=== PATIENT | female | born 1965 | race Hispanic/Latino ===

== ENCOUNTER 2018-11-21 11:51 | Emergency (ER) | payer OTHER ==
--- OUTSIDE RECORDS SUMMARY | 2018-11-21 11:53 | XMS REPORT | Summary of Care ---
:1965 Author Organization [facility] [place] Address [address] [place] [address]- Encounter HQ Dez(FIN) [id number] Date(s): 07/26/18 - 07/26/18 [facility] [address], [place] [address]- [phone] Discharge Disposition: Home or Self Care Attending Physician: Dariel Rangel MD Referring Physician: Dariel Rangel MD Vital Signs Most recent to oldest [Reference Range]: 1 Height 157.48 cm (07/26/18 11:21 AM) Blood Pressure [90-140/60-90 mmHg] 156/97 mmHg *HI* (07/26/18 11:21 AM) Respiratory Rate [14-20 BRMIN] 16 BRMIN (07/26/18 11:21 AM) Peripheral Pulse Rate [60-100 bpm] 71 bpm (07/26/18 11:21 AM) Weight 77.727 kg (07/26/18 11:21 AM) Body Mass Index 31.34 m2 (07/26/18 11:21 AM) Problem List Condition Effective Dates Status Health Status Informant Complex partial epilepsy(Confirmed) Active Essential tremor(Confirmed) Active H/O subarachnoid hemorrhage(Confirmed) Active HTN - Hypertension(Confirmed) Active Hypothyroidism(Confirmed) Active Allergies, Adverse Reactions, Alerts Substance Reaction Severity Status Demerol Active Medications amLODIPine 5 mg oral tablet 5 mg=1 tab, PO, Daily, # 90 tab, 0 Refill(s) Start Date: 07/26/18 Status: OrderedbuPROPion 150 mg/24 hours (XL) oral tablet, extended release 150 mg=1 tab, PO, Q24H, # 30 tab, 0 Refill(s) Start Date: 07/26/18 Status: Orderedfamotidine 20 mg oral tablet 20 mg=1 tab, PO, Daily, 0 Refill(s) Start Date: 07/26/18 Status: OrderedLaMICtal XR 100 mg oral tablet, extended release 100 mg=1 tab, PO, Daily, # 30 tab, 0 Refill(s) Start Date: 07/26/18 Status: OrderedlamoTRIgine 200 mg oral tablet 200 mg=1 tab, PO, BID, # 180 tab, 0 Refill(s) Start Date: 07/26/18 Status: OrderedlevETIRAcetam 500 mg oral tablet See Instructions, 1 tab PO QAM, 2 tabs PO QPM, 0 Refill(s) Start Date: 07/26/18 Status: Orderedlevothyroxine 150 mcg (0.15 mg) oral tablet 150 microgram=1 tab, PO, Daily, # 30 tab, 0 Refill(s) Start Date: 07/26/18 Status: OrderedPARoxetine 40 mg oral tablet 40 mg=1 tab, PO, Daily, # 30 tab, 0 Refill(s) Start Date: 07/26/18 Status: Ordered Results No data available for this section Immunizations No data available for this section Procedures Procedure Date Related Diagnosis Body Site Status Aneurysm clipping Completed Social History Social History Type Response Smoking Status Never smoker; Exposure to Tobacco Smoke None; Cigarette Smoking Last 365 Days No; Reg Smoking Cessation Counseling No entered on: 07/26/18 Assessment and Plan No data available for this section
--- OUTSIDE RECORDS SUMMARY | 2018-11-21 11:53 | XMS REPORT | Summary of Care ---
:1965 Author Organization [facility] [place] Address [address] [place] [address]- Encounter HQ Encntr_alijennifer(FIN) [id number] Date(s): 11/15/18 - 11/15/18 [facility] [address], [place] [address]- [phone] Discharge Disposition: Home or Self Care Attending Physician: Dariel Rangel MD Referring Physician: Dariel Rangel MD Vital Signs No data available for this section Problem List Condition Effective Dates Status Health Status Informant Complex partial epilepsy(Confirmed) Active Essential tremor(Confirmed) Active H/O subarachnoid hemorrhage(Confirmed) Active HTN - Hypertension(Confirmed) Active Hypothyroidism(Confirmed) Active Allergies, Adverse Reactions, Alerts Substance Reaction Severity Status Demerol Active Medications No data available for this section Results No data available for this section Immunizations No data available for this section Procedures Procedure Date Related Diagnosis Body Site Status Aneurysm clipping Completed Social History Social History Type Response Smoking Status Never smoker; Exposure to Tobacco Smoke None; Cigarette Smoking Last 365 Days No; Reg Smoking Cessation Counseling No entered on: 11/07/18 Assessment and Plan No data available for this section
--- OUTSIDE RECORDS SUMMARY | 2018-11-21 11:53 | XMS REPORT | Continuity of Care Document ---
:1965 Author Organization [employer] Care Team Providers Name Role Phone [employer] Unavailable Unavailable Problems Problem Status Onset Classification Date Comments Source Date Reported Complex partial Active Problem 11/18/2018 [facility] epileptic seizure Neuro (disorder) Essential tremor Active Problem 11/18/2018 [facility] (disorder) [facility] History of - Active Problem 11/18/2018 [facility] subarachnoid Neuro hemorrhage (context-dependent category) Hypertensive Active Problem 11/18/2018 [facility] disorder, systemic Neuro arterial (disorder) Hypothyroidism Active Problem 11/18/2018 [facility] (disorder) [facility] Medications Medication Details Route Status Patient Ordering Order Source Instructions Provider Date PARoxetine 40 mg 40 mg=1 Active [facility] oral tablet tab, PO, 019 [facility] Daily, # 30 tab, 0 Refill(s) Famotidine 20 MG 20 mg=1 Active [facility] Oral Tablet tab, PO, 019 [facility] Daily, 0 Refill(s) 24 HR 100 mg=1 Active [facility] lamotrigine 100 tab, PO, 019 Neuro MG Extended Daily, # Release Enteric 30 tab, 0 Coated Tablet Refill(s) [Lamictal] amLODIPine 5 mg 5 mg=1 Active [facility] oral tablet tab, PO, 019 [facility] Daily, # 90 tab, 0 Refill(s) Levetiracetam See Active [facility] 500 MG Oral Instructio 019 Neuro Tablet ns, 1 tab PO QAM, 2 tabs PO QPM, 0 Refill(s) levothyroxine 150 Active [facility] 150 mcg (0.15 microgram= 019 Neuro mg) oral tablet 1 tab, PO, Daily, # 30 tab, 0 Refill(s) 24 HR Bupropion 150 mg=1 Active [facility] Hydrochloride tab, PO, 019 [facility] 150 MG Extended Q24H, # 30 Release Tablet tab, 0 Refill(s) lamotrigine 200 200 mg=1 Active 05/17/2 [facility] MG Oral Tablet tab, PO, 019 Neuro BID, # 180 tab, 0 Refill(s) Allergies, Adverse Reactions, Alerts Substance Category Reaction Severity Reaction Status Date Comments Source type Reported Demerol Assertion Drug Active [facility] allergy Neuro Immunizations No Data Provided for This Section Results No Data Provided for This Section Pathology Reports No Data Provided for This Section Diagnostic Reports No Data Provided for This Section Consultation Notes No Data Provided for This Section Discharge Summaries No Data Provided for This Section History and Physicals No Data Provided for This Section Vital Signs Vital Sign Value Date Comments Source Weight 77.727 07/26/2018 [facility] Height 157.48 cm 07/26/2018 [facility] BMI Calculated 31.34 07/26/2018 [facility] Heart Rate 71 07/26/2018 [facility] Respitory Rate 16 07/26/2018 [facility] Systolic (mm Hg) 156 07/26/2018 [facility] Diastolic (mm Hg) 97 07/26/2018 [facility] Encounters Location Location Encounter Encounter Reason Attending ADM DC Status Source Details Type Number For Provider Date Date Visit Outpatient [id number] Dariel 07/26 [facility] [id number] Dariel 07/26 07/27 [facility] [id number] Dariel 11/07 [facility] [id number] Dariel 11/15 [facility] [place] [facility] [id number] Dariel 11/15 11/16 [facility] [id number] Dariel 12/27 [facility] Procedures Procedure Code Date Perfomer Comments Source Aneurysm [id number] [facility] clipping Assessment and Plan No Data Provided for This Section Plan of Care No Data Provided for This Section Social History Social History Date Source Social History TypeResponse 11/07/2018 [facility] Smoking Status Never smoker; Exposure to Tobacco Smoke None; Cigarette Smoking Last 365 Days No; Reg Smoking Cessation Counseling No entered on: 11/07/18 Family History No Data Provided for This Section Advance Directives No Data Provided for This Section Functional Status No Data Provided for This Section
[2018-11-21] MEDS ORDERED: NA CHLORIDE 0.9% 1,000 ML ONE (12:24)
[2018-11-21] MEDS ORDERED: DIAZEPAM 10 MG/2 ML INJ SYRINGE ONE (12:24)
[2018-11-21 12:31] LABS: Absolute Lymphocytes (CBC) 1.8 K/uL (0.7-4.9); Basophils % 0.6 % (0-1.3); Hematocrit 41.9 % (36.0-45.0); Lymphocytes % 20.5 % (15.3-44.8); MPV 8.9 fL (7.6-11.3); RBC Red Blood Cell Count 4.56 M/uL (3.86-4.86)
--- NOTE | 2018-11-21 12:31 | RAD REPORT ---
EXAM DESCRIPTION: CT - Ct Stroke Brain Wo Cont - 11/21/2018 12:24 pm CLINICAL HISTORY: VISUAL DISTURBANCES COMPARISON: No comparisons TECHNIQUE: All CT scans are performed using dose optimization technique as appropriate and may inclu de automated exposure control or mA/KV adjustment according to patient size. FINDINGS: No intracranial hemorrhage, hydrocephalus or extra-axial fluid collection.Evidence of prev ious aneurysm clipping noted along the left aspect of the [place] with left temporal craniec rafael changes present.No areas of brain edema or evidence of midline shift. The paranasal sinuses and mastoids are clear. IMPRESSION: No acute intracranial abnormality. The findings were discussed with Monica Aguiar in the ER on 11/21/2018 at 12:15 p.m. by telephone.
[2018-11-21 12:35] LABS: Protime INR 1.08
[2018-11-21] MEDS ORDERED: FOLIC ACID 5 MG/ML VIAL ONE ×2 (12:42→13:06)
[2018-11-21 12:43] LABS: Potassium 3.5 mmol/L (3.5-5.1)
--- NOTE | 2018-11-21 12:54 | RAD REPORT ---
EXAM DESCRIPTION: Snow Single View11/21/2018 12:47 pm CLINICAL HISTORY: Double vision COMPARISON: none FINDINGS: The lungs appear clear of acute infiltrate. The heart is normal size IMPRESSION: No acute abnormalities displayed
[2018-11-21] MEDS ORDERED: FOLIC ACID 1 MG in NA CHLORIDE 0.9% 50 ML IV ONE (13:00)
[2018-11-21] MEDS ORDERED: ASPIRIN EC 81 MG TAB PO ONE (14:38)
--- NOTE | 2018-11-21 15:12 | RAD REPORT ---
EXAM DESCRIPTION: USCarotid Artery Bilateral11/21/2018 2:55 pm CLINICAL HISTORY: Visual disturbance COMPARISON: None FINDINGS: The velocity of the right internal carotid artery equals 68 cm/sec. The right ICA/CCA rati o 1 The velocity of the left internal carotid artery equals 60 cm/sec. The left ICA/CCA ratio 0.8 Mild plaque is present within the carotid arteries. The vertebral arteries demonstrate antegrade flow IMPRESSION: Mild plaque within the carotid arteries without evidence of a hemodynamically significan t stenosis NASCET criteria used. Mild 0-49% stenosis Moderate 50-69% stenosis Severe 70-99% stenosis
--- NOTE | 2018-11-21 16:00 | ER ---
Nurse's Notes [facility] Name: Pati Romero Age: 53 yrs Sex: Female : 1965 Arrival Date: 11/21/2018 Time: 11:56 Bed 26 Private MD: Diagnosis: Transient cerebral ischemic attack, unspecified;Essential tremor;Essential (primary) hypertension Presentation: 11/21 11:56 Presenting complaint: Patient states: off balance x 1 week. Has gotten much worse ss today. Patient called PCP who instructed her to get a walker. Patient attempted to go to [facility], but was unable to walk without holding onto something. Despite holding onto basket, patient felt as if she was going to fall and began to become dizzy. Transition of care: patient was not received from another setting of care. Transition of care: patient was not received from another setting of care. Onset of symptoms was November 14, 2018. Risk Assessment: Do you want to hurt yourself or someone else? Patient reports no desire to harm self or others. Initial Sepsis Screen: Does the patient meet any 2 criteria? No. Patient's initial sepsis screen is negative. Does the patient have a suspected source of infection? No. Patient's initial sepsis screen is negative. Care prior to arrival: IV initiated. 20 GA, in the right antecubital area, Glucose check: 116. 11:56 Acuity: SUSAN 3 11:56 Method Of Arrival: EMS: [facility] 11:56 Care prior to arrival: Medication(s) given: zofran 4 mg. ss MAGNETO SPECIALIST: 13:44 lmp unknown mg2 Historical: - Allergies: 12:05 Demerol; ss - Home Meds: 14:30 Wellbutrin Oral [Active]; Lamictal Oral [Active]; Keppra Oral [Active]; Norvasc Oral mg2 [Active]; Paxil Oral [Active]; - PMHx: 14:30 Seizures; Hypertension; Depression; mg2 - Immunization history:: Adult Immunizations up to date. - Social history:: Smoking status: Patient/guardian denies using tobacco. - Ebola Screening: : Patient denies exposure to infectious person Patient denies travel to an Ebola-affected area in the 21 days before illness onset. Screenin:07 Abuse screen: Denies threats or abuse. Denies injuries from another. Nutritional mg2 screening: No deficits noted. Tuberculosis screening: No symptoms or risk factors identified. Fall Risk IV access (20 points). 13:43 Patient has been NPO before screening. The patient is alert, able to follow commands. mg2 The patient does not exhibit slurred or garbled speech The patient is not exhibiting difficulty speaking. The patient is exhibiting difficulty understanding words. The patient is able to swallow own secretions with no drooling or need for suction. Patient tolerated one teaspoon of water. No drooling, immediate coughing, gurgling, or clearing of the throat was noted. The patient tolerated 90mL of water. No drooling, immediate coughing, gurgling, or clearing of the throat was noted. The patient passed the bedside swallow screening. Oral medications may be given as ordered. Contact Physician for further diet orders. Assessment: 12:07 Reassessment: patient sent to ct scan via stretcher. mg2 12:12 Reassessment: Patient back from CT. ss 13:41 General: Appears in no apparent distress. comfortable, Behavior is calm, cooperative. mg2 Pain: Complains of pain in abdomen Pain does not radiate. Pain currently is 3 out of 10 on a pain scale. Neuro: Level of Consciousness is awake, alert, obeys commands, Oriented to person, place, time, situation. Cardiovascular: Capillary refill < 3 seconds Patient's skin is warm and dry. Respiratory: Airway is patent Respiratory effort is even, unlabored, Respiratory pattern is regular, symmetrical. GI: Reports lower abdominal pain, upper abdominal pain. 13:42 : No deficits noted. EENT: No deficits noted. Derm: Skin is intact, is healthy with mg2 good turgor, Skin is pink, warm \T\ dry. normal. Musculoskeletal: Circulation, motion, and sensation intact. Capillary refill < 3 seconds, patient was shaking both arms but that is her baseline. 14:52 Reassessment: patient sent to ct scan via wheelchair. mg2 15:41 Reassessment: patient was able to ambulate herself in ed without assistance. mg2 16:12 Reassessment: she said her sister will come and pick her up. Patient states feeling mg2 better. Patient states symptoms have improved. Vital Signs: 12:05 BP 144 / 109; Pulse 89; Resp 18; Temp 98.7(O); Pulse Ox 100% on R/A; Weight 72.57 kg; ss Pain 0/10; 13:44 BP 121 / 91; Pulse 81; Resp 18; Pulse Ox 96% on R/A; mg2 15:42 BP 136 / 91; Pulse 80; Resp 18; Pulse Ox 97% on R/A; mg2 NIH Stroke Scale Scores: 13:43 NIHSS Score: 0 mg2 ED Course: 11:56 Patient arrived in ED. ss 11:56 Monica Aguiar FNP-C is [facility]. snw 11:56 Shahida Burgess MD is Attending Physician. snw 12:04 Triage completed. ss 12:05 Arm band placed on right wrist. ss 12:06 Filiberto Strong, JAE is Primary Nurse. mg2 12:07 Patient has correct armband on for positive identification. mg2 12:07 No provider procedures requiring assistance completed. mg2 12:27 CT-STROKE BRAIN W/O CONTRAST CT In Process Unspecified. EDMS 12:48 Stroke CXR 1 View In Process Unspecified. EDMS 13:43 Inserted saline lock: 20 gauge in right antecubital area, using aseptic technique. mg2 Blood collected. 14:56 Carotid Artery Bilateral US In Process Unspecified. EDMS 15:59 Dariel Rangel MD is Referral Physician. snw 16:12 IV discontinued, intact, bleeding controlled, No redness/swelling at site. Pressure mg2 dressing applied. Administered Medications: 12:33 Drug: Valium 2 mg Route: IVP; Site: right forearm; mg2 13:26 Follow up: Response: No adverse reaction; Marked relief of symptoms mg2 12:35 Drug: NS 0.9% 1000 ml Route: IV; Rate: 75 ml/hr; Site: right forearm; mg2 16:20 Follow up: Response: No adverse reaction; IV Status: Order to discontinue infusion; IV mg2 Intake: 300ml 13:26 Drug: foLIC Acid 1 mg Route: IVPB; Site: right forearm; mg2 16:20 Follow up: Response: No adverse reaction; IV Status: Completed infusion mg2 15:03 Drug: Aspirin 81 mg Route: PO; mg2 15:24 Follow up: Response: No adverse reaction mg2 Point of Care Testing: Blood Glucose: 12:15 Blood Glucose: 94 mg/dL; ss Ranges: Intake: 16:20 IV: 300ml; Total: 300ml. mg2 Outcome: 16:00 Discharge ordered by MD. núñez 16:13 Discharged to home ambulatory. mg2 16:13 Condition: stable 16:13 Discharge instructions given to patient, Instructed on discharge instructions, follow up and referral plans. Demonstrated understanding of instructions, follow-up care. 16:21 Patient left the ED. mg2 NIH Stroke Scale - NIH Stroke Score Date: 11/21/2018 Time: 13:43 Total Score = 0 1a. Level of Consciousness (LOC) - 0(Alert) 1b. Level of Consciousness (LOC) (Year \T\ Age) - 0(Both) 1c. LOC Commands (Open \T\ Closes Eyes/Surface Room Shop Optician) - 0(Both) 2. Best Gaze (Lateral Gaze Paresis) - 0(Normal) 3. Visual Field Loss - 0(No visual loss) 4. Facial Palsy - 0(Normal) 5a. Left Arm: Motor (10-second hold) - 0(No drift) 5b. Right Arm: Motor (10-second hold) - 0(No drift) 6a. Left Leg: Motor (5-second hold - always test supine) - 0(No drift) 6b. Right Leg: Motor (5-second hold - always test supine) - 0(No drift) 7. Limb Ataxia (finger/nose \T\ heel/rai - test with eyes open) - 0(Absent) 8. Sensory Loss (pinprick arms/legs/face) - 0(Normal) 9. Best Language: Aphasia (description/naming/reading) - 0(No aphasia) 10. Dysarthria (speech clarity - read or repeat words) - 0(Normal) 11. Extinction and Inattention (visual/tactile/auditory/spatial/personal) - 0(No abnormality) Initials: mg2 Signatures: Dispatcher [employer] EDMS Monica Aguiar, LIBRARY SCIENCE INSTRUCTOR-C LIBRARY SCIENCE INSTRUCTOR-Csnw Rocío Grace, JAE RN ss Filiberto Strong RN RN mg2 Corrections: (The following items were deleted from the chart) 16:13 16:12 Reassessment: Patient states feeling better. Patient states symptoms have mg2 improved. mg2
--- NOTE | 2018-11-21 16:01 | EDPHYS ---
Physician Documentation [facility] Name: Pati Romero Age: 53 yrs Sex: Female : 1965 Arrival Date: 11/21/2018 Time: 11:56 Bed 26 Private MD: ED Physician Shahida Burgess HPI: 11/21 12:55 This 53 yrs old Female presents to ER via EMS with complaints of Off Balance. snw 12:55 Onset: The symptoms/episode began/occurred gradually, 3 day(s) ago, and became worse snw and became persistent. Associated signs and symptoms: Pertinent positives: double vision. Modifying factors: The patient symptoms are alleviated by nothing. It is unknown whether or not the patient has recently seen a physician. . 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 - Social history:: Smoking status: Patient/guardian denies using tobacco. - Ebola Screening: : Patient denies exposure to infectious person Patient denies travel to an Ebola-affected area in the 21 days before illness onset. ROS: 13:01 Eyes: Negative for injury, pain, redness, and discharge, + double vision ENT: Negative snw for injury, pain, and discharge, Neck: Negative for injury, pain, and swelling, Cardiovascular: Negative for chest pain, palpitations, and edema, Respiratory: Negative for shortness of breath, cough, wheezing, and pleuritic chest pain, Back: Negative for injury and pain, : Negative for injury, bleeding, discharge, and swelling, MS/Extremity: Negative for injury and deformity, Skin: Negative for injury, rash, and discoloration. 13:01 Constitutional: Positive for malaise, difficulty ambulating. 13:01 Abdomen/GI: Positive for nausea. 13:01 Neuro: Positive for gait disturbance, visual changes. Exam: 12:55 Constitutional: This is a well developed, well nourished patient who is awake, alert, snw and in mild acute distress. Pt is mildly diaphoretic, nauseated on exam with mild resting tremor. Pt has experienced severe balance problems over the past three days and was attempting to go for a walker with feet when she began having double vision and near syncope 12:58 Head/Face: Normocephalic, atraumatic. ENT: Nares patent. No nasal discharge, no snw septal abnormalities noted. Tympanic membranes are normal and external auditory canals are clear. Oropharynx with no redness, swelling, or masses, exudates, or evidence of obstruction, uvula midline. Mucous membranes moist. Neck: Trachea midline, no thyromegaly or masses palpated, and no cervical lymphadenopathy. Supple, full range of motion without nuchal rigidity, or vertebral point tenderness. No Meningismus. Chest/axilla: Normal chest wall appearance and motion. Nontender with no deformity. No lesions are appreciated. Cardiovascular: Regular rate and rhythm with a normal S1 and S2. No gallops, murmurs, or rubs. Normal PMI, no JVD. No pulse deficits. Respiratory: Lungs have equal breath sounds bilaterally, clear to auscultation and percussion. No rales, rhonchi or wheezes noted. No increased work of breathing, no retractions or nasal flaring. Abdomen/GI: Soft, non-tender, with normal bowel sounds. No distension or tympany. No guarding or rebound. No evidence of tenderness throughout. Back: No spinal tenderness. No costovertebral tenderness. Full range of motion. MS/ Extremity: Pulses equal, no cyanosis. Neurovascular intact. Full, normal range of motion. 12:58 Eyes: Extraocular movements: convergence causes binocular and mono-ocular double vision. 12:58 Neuro: Orientation: is normal, Mentation: is normal, Memory: is normal, Cranial nerves: Facial palsy and sensory deficits are absent. no gross hearing deficit,. Speech is clear and appropriate. Gag reflex present. Tongue strength is normal, Cerebellar function: resting tremor, Motor: moves all fours, Sensation: is normal, Gait: not tested. seizure activity, is not displayed by the patient, Abnormal movements: resting tremor, is located in the . Vital Signs: 12:05 BP 144 / 109; Pulse 89; Resp 18; Temp 98.7(O); Pulse Ox 100% on R/A; Weight 72.57 kg; ss Pain 0/10; 13:44 BP 121 / 91; Pulse 81; Resp 18; Pulse Ox 96% on R/A; mg2 15:42 BP 136 / 91; Pulse 80; Resp 18; Pulse Ox 97% on R/A; mg2 NIH Stroke Scale Scores: 13:43 NIHSS Score: 0 mg2 MDM: 11:56 Patient medically screened. snw 13:10 Data reviewed: vital signs, nurses notes. Data interpreted: Pulse oximetry: on room air snw is 100 %. Interpretation: normal. Counseling: I had a detailed discussion with the patient and/or guardian regarding: the historical points, exam findings, and any diagnostic results supporting the discharge/admit diagnosis, the presence of at least one elevated blood pressure reading (>120/80) during this emergency department visit, lab results, radiology results. Response to treatment: the patient's symptoms have markedly improved after treatment. 14:43 Physician consultation: Dariel Rangel MD was called at 14:09, was contacted at 14:09, snw regarding consult, patient's condition, would like further tests performed, carotid doppler studies, treat as TIA. Pt has an appt with Dr. Rangel on 11/27/18, encouraged to call office and she can be seen tomorrow or Sunday.. 11/21 12:03 Order name: Basic Metabolic Panel; Complete Time: 12:43 snw 11/21 12:03 Order name: CBC with Diff; Complete Time: 12:34 snw 11/21 12:03 Order name: CT-STROKE BRAIN W/O CONTRAST CT; Complete Time: 12:40 snw 11/21 12:03 Order name: Protime (+inr); Complete Time: 12:40 snw 11/21 12:03 Order name: Ptt, Activated; Complete Time: 12:40 snw 11/21 12:03 Order name: Stroke CXR 1 View; Complete Time: 13:02 snw 11/21 12:03 Order name: EKG; Complete Time: 12:23 snw 11/21 12:03 Order name: Accucheck; Complete Time: 12:24 snw 11/21 14:23 Order name: Carotid Artery Bilateral US; Complete Time: 15:17 snw 11/21 12:03 Order name: Cardiac monitoring; Complete Time: 12:24 snw 11/21 12:03 Order name: EKG - Nurse/Tech; Complete Time: 12:24 w 11/21 12:03 Order name: IV Saline Lock; Complete Time: 12:06 w 11/21 12:03 Order name: Labs collected and sent; Complete Time: 12:24 w 11/21 12:03 Order name: NPO; Complete Time: 12:24 w 11/21 12:03 Order name: O2 Per Protocol; Complete Time: 12:24 w 11/21 12:03 Order name: O2 Sat Monitoring; Complete Time: 12:24 w 11/21 12:03 Order name: Stroke Swallow Screen; Complete Time: 12:35 snw 11/21 12:34 Order name: Misc. Order: med list please; Complete Time: 13:26 w 11/21 15:17 Order name: Misc. Order: please assist pt with ambulation in ED; Complete Time: 15:41 snw Administered Medications: 12:33 Drug: Valium 2 mg Route: IVP; Site: right forearm; mg2 13:26 Follow up: Response: No adverse reaction; Marked relief of symptoms mg2 12:35 Drug: NS 0.9% 1000 ml Route: IV; Rate: 75 ml/hr; Site: right forearm; mg2 16:20 Follow up: Response: No adverse reaction; IV Status: Order to discontinue infusion; IV mg2 Intake: 300ml 13:26 Drug: foLIC Acid 1 mg Route: IVPB; Site: right forearm; mg2 16:20 Follow up: Response: No adverse reaction; IV Status: Completed infusion mg2 15:03 Drug: Aspirin 81 mg Route: PO; mg2 15:24 Follow up: Response: No adverse reaction mg2 Point of Care Testing: Blood Glucose: 12:15 Blood Glucose: 94 mg/dL; ss Ranges: Critical Glucose Levels:Adult <50 mg/dl or >400 mg/dl <40 mg/dl or >180 mg/dl Disposition: 18:47 Co-signature as Attending Physician, Shahida Burgess MD. ma2 Disposition: 11/21/18 16:00 Discharged to Home. Impression: Transient cerebral ischemic attack, unspecified, Essential tremor, Essential (primary) hypertension. - Condition is Stable. - Discharge Instructions: Hypertension, Transient Ischemic Attack, Essential Tremor. - Medication Reconciliation Form, Thank You Letter, Antibiotic Education, Prescription Opioid Use form. - Follow up: Emergency Department; When: As needed; Reason: Worsening of condition. Follow up: Dariel Rangel MD; When: 1 - 2 days; Reason: Recheck today's complaints, Continuance of care, Re-evaluation by your physician. - Notes: Please take one 81mg aspirin daily. Dr. Rangel can see you earlier than your scheduled appointment. Call Dr. Rangel's office to get an earlier appointment. NIH Stroke Scale - NIH Stroke Score Date: 11/21/2018 Time: 13:43 Total Score = 0 1a. Level of Consciousness (LOC) - 0(Alert) 1b. Level of Consciousness (LOC) (Year \T\ Age) - 0(Both) 1c. LOC Commands (Open \T\ Closes Eyes/Sales Floor Manager) - 0(Both) 2. Best Gaze (Lateral Gaze Paresis) - 0(Normal) 3. Visual Field Loss - 0(No visual loss) 4. Facial Palsy - 0(Normal) 5a. Left Arm: Motor (10-second hold) - 0(No drift) 5b. Right Arm: Motor (10-second hold) - 0(No drift) 6a. Left Leg: Motor (5-second hold - always test supine) - 0(No drift) 6b. Right Leg: Motor (5-second hold - always test supine) - 0(No drift) 7. Limb Ataxia (finger/nose \T\ heel/rai - test with eyes open) - 0(Absent) 8. Sensory Loss (pinprick arms/legs/face) - 0(Normal) 9. Best Language: Aphasia (description/naming/reading) - 0(No aphasia) 10. Dysarthria (speech clarity - read or repeat words) - 0(Normal) 11. Extinction and Inattention (visual/tactile/auditory/spatial/personal) - 0(No abnormality) Initials: mg2 Signatures: Dispatcher [employer] EDGA Monica Aguiar FNP-C CHIEF CREDIT OFFICER-Lopezw Rocío Grace RN RN ss Shahida Burgess MD MD ma2 Filiberto Strong RN RN mg2 Corrections: (The following items were deleted from the chart) 12:27 12:22 CT-STROKE BRAIN W/O CONTRAST ordered. EDGA EDMS 16:00 16:00 11/21/2018 16:00 Discharged to Home. Impression: Transient cerebral snw ischemic attack, unspecified. Condition is Stable. Discharge Instructions: Hypertension, Transient Ischemic Attack, Essential Tremor. Forms are Medication Reconciliation Form, Thank You Letter, Antibiotic Education, Prescription Opioid Use. Follow up: Emergency Department; When: As needed; Reason: Worsening of condition. Follow up: Dariel Rangel; When: 1 - 2 days; Reason: Recheck today's complaints, Continuance of care, Re-evaluation by your physician. snw 16:21 16:00 11/21/2018 16:00 Discharged to Home. Impression: Transient cerebral mg2 ischemic attack, unspecified; Essential tremor; Essential (primary) hypertension. Condition is Stable. Discharge Instructions: Hypertension, Transient Ischemic Attack, Essential Tremor. Forms are Medication Reconciliation Form, Thank You Letter, Antibiotic Education, Prescription Opioid Use. Follow up: Emergency Department; When: As needed; Reason: Worsening of condition. Follow up: Dariel Rangel; When: 1 - 2 days; Reason: Recheck today's complaints, Continuance of care, Re-evaluation by your physician. snw
[2018-11-21 16:49] VITALS: TEMP 98.7
[2018-11-21 16:51] VITALS: BP 136/91; O2SAT 97
--- NOTE | 2018-11-22 07:41 | EKG ---
Test Date: 2018-11-21 Test Time: 12:21:09 Coal Pulverizer Operator: HARRIET MEASUREMENT RESULTS: Intervals: Rate: 88 PA: 166 QRSD: 104 QT: 390 QTc: 471 Ina: P: 50 PA: 166 QRS: -18 T: 120 INTERPRETIVE STATEMENTS: Normal sinus rhythm T wave abnormality, consider lateral ischemia Prolonged QT Abnormal ECG No previous ECG available for comparison Electronically Signed On 11-22-18 07:38:27 CDT by Bj Vang
== END 2018-11-21 16:21 | disposition home or self-care (01) ==
LOC: ER 11:51
DX: G45.9 Transient cerebral ischemic attack, unspecified (principal); I10 Essential (primary) hypertension; G25.0 Essential tremor; F32.9 Major depressive disorder, single episode, unspecified; R56.9 Unspecified convulsions; Z88.6 Allergy status to analgesic agent
CPT/HCPCS: 96365; 96361; 93005; 85025; 80048; 36415; 85610; 82962; 85730; 70450; 71045; 93880; 96375; 99284; 96366; J3360; J7030

== ENCOUNTER 2018-11-23 09:28 | Emergency (ER) | payer OTHER ==
--- OUTSIDE RECORDS SUMMARY | 2018-11-23 09:30 | XMS REPORT | Continuity of Care Document ---
:1965 Author Organization [email or web address] Care Team Providers Name Role Phone [email or web address] Unavailable Unavailable Problems Problem Status Onset Classification [...] Number For Provider Date Date Visit Outpatient [id number] Dariel 07/26 [facility] [id number] Dariel 07/26 07/27 [facility] [place] [id number] Dariel 11/07 [facility] Outpatient [id number] Dariel 11/15 [facility] [id number] Dariel 11/15 11/16 [facility] [place] [id number] Dariel 12/27 [facility] Procedures Procedure Code Date Perfomer Comments Source Aneurysm [id number] [facility] cl[place] Assessment and Plan No Data [...]
[2018-11-23 10:27] LABS: Absolute Lymphocytes (CBC) 1.4 K/uL (0.7-4.9); Basophils % 0.8 % (0-1.3); Hematocrit 43.8 % (36.0-45.0); Lymphocytes % 16.4 % (15.3-44.8); MPV 8.9 fL (7.6-11.3); RBC Red Blood Cell Count 4.73 M/uL (3.86-4.86)
[2018-11-23 10:29] LABS: Protime INR 1.07
--- NOTE | 2018-11-23 10:46 | RAD REPORT ---
EXAM DESCRIPTION: CT - Head Brain Wo Cont - 11/23/2018 10:27 am CLINICAL HISTORY: Alteration of awareness/confusion COMPARISON: 11/21/18 TECHNIQUE: Computed axial tomography of the head was obtained. IV contrast was not requested. All CT scans are performed using dose optimization technique as appropriate and may include automated exposure control or mA/KV adjustment according to patient size. FINDINGS: An intracranial bleed is not seen . The ventricles are normal in caliber. No extra-axial fluid collection is noted. Postsurgical changes of an aneurysm repair. Artifact from the aneurysm clip/coil limits evaluation of portions of the left brain Fluid within the sinuses/ mastoids is not seen. IMPRESSION: No acute intracranial abnormality is seen.
--- NOTE | 2018-11-23 11:15 | ER ---
Nurse's Notes [facility] Name: Pati Romero Age: 53 yrs Sex: Female : 1965 Arrival Date: 11/23/2018 Time: 09:32 Bed 2 Private MD: Diagnosis: Altered mental status, unspecified Presentation: 11/23 09:53 Acuity: SUSAN 2 sv 09:53 Presenting complaint: Niece (Liz) who pt lives with stated that pt has been altered sv for about a week; was seen here in the ER and discharged. Pt reported to her that yesterday she "had an episode at [facility]". Niece took her to her sister's house to help convince her to come to the ER and pt attempted to get out of the car while it was moving and was not making sense with her words. Transition of care: patient was not received from another setting of care. Onset of symptoms was November 16, 2018. Risk Assessment: Do you want to hurt yourself or someone else? Unable to obtain. Initial Sepsis Screen: Does the patient meet any 2 criteria? Altered Mental Status. HR > 90 bpm. Yes Does the patient have a suspected source of infection? No. Patient's initial sepsis screen is negative. Care prior to arrival: None. 09:53 Method Of Arrival: Wheelchair sv Triage Assessment: 09:53 General: Appears in no apparent distress. uncomfortable, Behavior is flat, sv uncooperative, not speaking to staff but will speak to niece. Pt has episodes of attempting to get out of bed and yells but is able to be consoled with family.. Pain: Denies pain. Neuro: Level of Consciousness is confused, lethargic, Oriented to none Moves all extremities. Cardiovascular: Patient's skin is warm and dry. Pulses are 3+ in right radial artery and left radial artery Rhythm is sinus rhythm. Respiratory: Airway is patent Respiratory effort is even, unlabored, Respiratory pattern is regular, symmetrical. GI: Abdomen is round non-distended, Abdomen is tender to palpation in suprapubic area. Derm: Skin is normal, Bruising that is in multiple stages of healing on the right ear lobe, BUE, and BLE. Derm: Wound noted left leg. Musculoskeletal: Range of motion: intact in all extremities. Historical: - Allergies: 10:04 Demerol; hb - Home Meds: 10:04 Norvasc Oral [Active]; hb 10:46 Keppra Oral [Active]; Lamictal 200 mg oral tab [Active]; Paxil 40 mg oral tab once sv daily [Active]; lisinopril-hydrochlorothiazide 20-12.5 mg oral tab 1 tab once daily [Active]; Norvasc 10 mg Oral tab 1 tab once daily [Active]; famotidine 20 mg Oral tab 1 tab 2 times per day [Active]; Abilify 2 mg oral tab nightly [Active]; indomethacin 50 mg Oral cap QID prn [Active]; levothyroxine 150 mcg tab 1 tab once daily [Active]; Wellbutrin XL 150 mg Oral Tb24 1 tab once daily [Active]; - PMHx: 10:04 Depression; Hypertension; Seizures; hb 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 - Social history:: Smoking status: unknown. - Ebola Screening: : No symptoms or risks identified at this time. Screenin:24 Abuse screen: Denies threats or abuse. Denies injuries from another. Nutritional sv screening: No deficits noted. Tuberculosis screening: No symptoms or risk factors identified. Fall Risk Fall in past 12 months (25 points). Secondary diagnosis (15 points) seizures, IV access (20 points). Ambulatory Aid- None/Bed Rest/Nurse Assist (0 pts). Gait- Normal/Bed Rest/Wheelchair (0 pts) Mental Status- Overestimates/Forgets Limitations (15 pts.). Total Bang Fall Scale indicates High Risk Score (45 or more points). Fall prevention measures have been instituted. Side Rails Up X 2 Placed Close to Nursing Station Frequent Obs/Assessments Occuring Family Present and informed to notify staff if the need to leave the bedside As available patient and family educated on Fall Prevention Program and Strategies. Assessment: 10:29 Reassessment: Patient appears in no apparent distress at this time. No changes from sv previously documented assessment. Patient and/or family updated on plan of care and expected duration. Pain level reassessed. 12:35 Reassessment: Patient appears in no apparent distress at this time. No changes from tw2 previously documented assessment. Patient and/or family updated on plan of care and expected duration. Pain level reassessed. 12:44 Reassessment: spoke with Zoe with [facility] at this time, she will talk with tw2 their director regarding pts history, and if accepted by their doctor they will call back. Vital Signs: 09:55 BP 150 / 108; Pulse 93; Resp 23; Temp 99.8; Pulse Ox 97% ; Pain 0/10; sv 10:00 BP 138 / 94; Pulse 98; Resp 24; Pulse Ox 96% ; sv 10:45 BP 155 / 99; Pulse 93; Resp 24; Pulse Ox 95% ; sv 11:40 BP 135 / 96; Pulse 94; Resp 19; Pulse Ox 98% ; sv 12:34 BP 120 / 88; Pulse 94; Resp 23; Pulse Ox 97% on R/A; tw2 12:39 Weight 63.5 kg (R); Height 5 ft. 5 in. (165.10 cm) (R); tw2 13:00 BP 123 / 85; Pulse 95; Resp 20; Pulse Ox 96% ; sv 14:00 BP 104 / 90; Pulse 94; Resp 19; Pulse Ox 97% ; sv 16:19 BP 138 / 89; Pulse 92; Resp 16; Pulse Ox 98% ; sv 12:39 Body Mass Index 23.30 (63.50 kg, 165.10 cm) tw2 ED Course: 09:32 Patient arrived in ED. rg4 09:37 James Worthington MD is Attending Physician. kdr 09:40 Fabiola Ospina, JAE is Primary Nurse. sv 09:53 Triage completed. sv 10:00 Patient has correct armband on for positive identification. Placed in gown. Bed in low sv position. Call light in reach. Side rails up X2. Adult w/ patient. Seizure precautions initiated. playground monitor on. Pulse ox on. NIBP on. Door closed. Head of bed elevated. 10:00 Initial lab(s) drawn, by me, sent to lab. Inserted saline lock: 20 gauge in right sv forearm, using aseptic technique. Blood collected. Flushed right forearm with 5 ml normal saline. 10:02 called [facility] to check and see if they has any available beds/ Esther eb took the patient information and will call Michaela their embedded case manager who will then call us back. 10:04 Arm band placed on. hb 10:20 per Michaela from [facility] they are unable to accept the patient at their eb facility due to the facility not taking patients insurance. Michaela referred [facility] and [facility] once our assessment is complete who do accept the patients insurance. 10:27 CT Head Brain wo Cont In Process Unspecified. EDMS 10:27 CT completed. Patient tolerated procedure well. Patient moved back from CT. bq 10:31 Acetaminophen Sent. sv 10:31 Basic Metabolic Panel Sent. sv 10:39 Awaiting radiology results. Awaiting re-evaluation by ER provider. sv 11:13 faxed patient records to the following facilities in the attempt to transfer; [facility], [facility], [facility] , and [facility]. 12:35 connected Zoe from [facility] with Carlita for Nurse to Nurse report. 12:53 Lakia from [facility] called to decline patient due to not having any female ms beds at this time. 13:39 Kareen from [facility] called they have a female bed available now and was connected eb with nurse to get nurse to nurse report. 13:42 Assisted JAE Zazueta with urine cath. mb4 13:50 Straight cath inserted, using sterile technique, 16 Fr. Specimen obtained. Returned tw2 Zaire Muller served as agricultural lender. Patient tolerated well. 14:[address] Serrano the doctor precision instrument maker and repairer for [facility] with Dr. whitney Worthington for patient transfer consultation. 14:09 administrative approval given by Beatriz Soto from [facility]. eb 15:34 Diet: Patient given chips, turkey sandwich, and a soda. mb4 Administered Medications: No medications were administered Point of Care Testing: Blood Glucose: 09:50 Blood Glucose: 85 mg/dL; sv Ranges: Outcome: 11:14 ER care complete, transfer ordered by . kdr 16:06 Transferred by ground EMS Transfer form completed. Note: Report given to June from [facility] 16:06 Condition: stable 16:06 Instructed on the need for transfer. 16:45 Patient left the ED. sv Signatures: Dispatcher [employer] Fabiola Alas RN RN sv Rittger, Kevin, MD MD kdr Quilty, Betty bq Solis, Maria ms Baxter, Heather, RN RN hb Wise, Tara, RN RN tw2 Aydee Claros rg4 Shyanne Richmond Mackenzie mb4 Corrections: (The following items were deleted from the chart) 10:46 10:04 Home Meds: Keppra Oral; hb sv 10:46 10:04 Home Meds: Lamictal Oral; hb sv :46 10:04 Home Meds: Paxil Oral; hb sv :46 10:04 Home Meds: Wellbutrin Oral; hb sv 12:44 10:46 PMHx: brain aneurysm with metal; sv tw2
--- NOTE | 2018-11-23 11:16 | EDPHYS ---
Physician Documentation [facility] Name: Pati Romero Age: 53 yrs Sex: Female : 1965 Arrival Date: 11/23/2018 Time: 09:32 Bed 2 Private MD: ED Physician James Worthington HPI: 11/23 10:39 This 53 yrs old Female presents to ER via Wheelchair with complaints of kdr Altered Mental Status. 11:14 The patient presents with agitation, confusion, disorientation. Onset: The kdr symptoms/episode began/occurred gradually, at an unknown time. For more than a week. Possible causes: drug use, head injury. Associated signs and symptoms: Pertinent positives: agitation, confusion, Pertinent negatives: blurred vision, diaphoresis. Current symptoms: In the emergency department the patient's symptoms are unchanged from the initial presentation. Patient's baseline: Neuro: alert but confused, The patient up until recently was driving her car until the family took her keys away from her. The family relates that the patient was concerned that she was being moved out of her house. Family states they had not told her this. The patient then went out and got in her house and drove to her sisters house not far away. The patient was found at that house playing cards with another family member acting as if nothing was wrong.. It is unknown whether or not the patient has had similar symptoms in the past. The patient has not recently seen a physician. Historical: - Allergies: 10:04 Demerol; hb - Home Meds: 10:04 Norvasc Oral [Active]; hb 10:46 Keppra Oral [Active]; Lamictal 200 mg oral tab [Active]; Paxil 40 mg oral tab once sv daily [Active]; lisinopril-hydrochlorothiazide 20-12.5 mg oral tab 1 tab once daily [Active]; Norvasc 10 mg Oral tab 1 tab once daily [Active]; famotidine 20 mg Oral tab 1 tab 2 times per day [Active]; Abilify 2 mg oral tab nightly [Active]; indomethacin 50 mg Oral cap QID prn [Active]; levothyroxine 150 mcg tab 1 tab once daily [Active]; Wellbutrin XL 150 mg Oral Tb24 1 tab once daily [Active]; - PMHx: 10:04 Depression; Hypertension; Seizures; hb 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 - Social history:: Smoking status: unknown. - Ebola Screening: : No symptoms or risks identified at this time. ROS: 11:14 Constitutional: Negative for fever, chills, and weight loss, Eyes: Negative for injury, kdr pain, redness, and discharge, Neck: Negative for injury, pain, and swelling, Cardiovascular: Negative for chest pain, palpitations, and edema, Respiratory: Negative for shortness of breath, cough, wheezing, and pleuritic chest pain, Back: Negative for injury and pain, : Negative for injury, bleeding, discharge, and swelling, MS/Extremity: Negative for injury and deformity, Skin: Negative for injury, rash, and discoloration, Neuro: Negative for headache, weakness, numbness, tingling, and seizure activity. Psych: Negative for depression, anxiety, suicide ideation, homicidal ideation, and hallucinations, Allergy/Immunology: Negative for hives, rash, and allergies, Endocrine: Negative for neck swelling, polydipsia, polyuria, polyphagia, and marked weight changes, Hematologic/Lymphatic: Negative for swollen nodes, abnormal bleeding, and unusual bruising. 11:14 Abdomen/GI: Positive for abdominal pain, Negative for nausea and vomiting, nausea, vomiting, and diarrhea, nausea, vomiting, diarrhea, constipation, abdominal cramps, abdominal distension, anorexia, dysphagia, hematemesis, black/tarry stool, rectal pain. Exam: 11:14 Constitutional: This is a well developed, well nourished patient who is awake, alert, kdr and in no acute distress. Eyes: Pupils equal round and reactive to light, extra-ocular motions intact. Lids and lashes normal. Conjunctiva and sclera are non-icteric and not injected. Cornea within normal limits. Periorbital areas with no swelling, redness, or edema. Neck: Trachea midline, no thyromegaly or masses palpated, and no cervical lymphadenopathy. Supple, full range of motion without nuchal rigidity, or vertebral point tenderness. No Meningismus. Chest/axilla: Normal chest wall appearance and motion. Nontender with no deformity. No lesions are appreciated. 11:14 Head/face: The patient has multiple contusion to the right ear and lateral side of her head in various stages of healing.. Vital Signs: 09:55 BP 150 / 108; Pulse 93; Resp 23; Temp 99.8; Pulse Ox 97% ; Pain 0/10; sv 10:00 BP 138 / 94; Pulse 98; Resp 24; Pulse Ox 96% ; sv 10:45 BP 155 / 99; Pulse 93; Resp 24; Pulse Ox 95% ; sv 11:40 BP 135 / 96; Pulse 94; Resp 19; Pulse Ox 98% ; sv 12:34 BP 120 / 88; Pulse 94; Resp 23; Pulse Ox 97% on R/A; tw2 12:39 Weight 63.5 kg (R); Height 5 ft. 5 in. (165.10 cm) (R); tw2 13:00 BP 123 / 85; Pulse 95; Resp 20; Pulse Ox 96% ; sv 14:00 BP 104 / 90; Pulse 94; Resp 19; Pulse Ox 97% ; sv 16:19 BP 138 / 89; Pulse 92; Resp 16; Pulse Ox 98% ; sv 12:39 Body Mass Index 23.30 (63.50 kg, 165.10 cm) tw2 MDM: 11:14 Patient medically screened. kdr 13:34 Data reviewed: vital signs, nurses notes, lab test result(s), radiologic studies. kdr Counseling: I had a detailed discussion with the patient and/or guardian regarding: the historical points, exam findings, and any diagnostic results supporting the discharge/admit diagnosis, lab results, radiology results, the need to transfer to another facility. 13:46 ED course: The patient was stable in the ED - she continues to be confused and kdr agitated. She has not been combative to staff. She will occasionally thrash in bed. She has been doing this previously and has moderate ecchymosis to the right ear and periauricular area. 11/23 09:54 Order name: Acetaminophen [facility] 11/23 09:54 Order name: Basic Metabolic Panel [facility] 11/23 09:54 Order name: CBC with Diff; Complete Time: 10:50 kdr 11/23 09:54 Order name: ETOH Level; Complete Time: 10:50 [facility] 11/23 09:54 Order name: Hepatic Function; Complete Time: 13:31 [facility] 11/23 09:54 Order name: PT-INR; Complete Time: 10:50 [facility] 11/23 09:54 Order name: Ptt, Activated; Complete Time: 10:50 [facility] 11/23 09:54 Order name: Salicylate; Complete Time: 10:50 [facility] 11/23 09:54 Order name: Urine Drug Screen [facility] 11/23 09:55 Order name: Acetaminophen Level; Complete Time: 13:31 [facility] 11/23 09:55 Order name: Basic Metabolic Panel; Complete Time: 13:31 [facility] 11/23 09:55 Order name: CT Head Brain wo Cont; Complete Time: 10:50 [facility] 11/23 10:07 Order name: Glucose, Ancillary Testing; Complete Time: 10:50 [facility] 11/23 13:53 Order name: Urine Dipstick--Ancillary (enter results) 11/23 09:54 Order name: EKG; Complete Time: 09:56 [facility] 11/23 09:54 Order name: EKG - Nurse/Tech; Complete Time: 10:31 [facility] 11/23 09:54 Order name: IV Saline Lock; Complete Time: 10:31 [facility] 11/23 09:54 Order name: Labs collected and sent; Complete Time: 10:31 [facility] 11/23 09:54 Order name: Urine Dipstick-Ancillary (obtain specimen); Complete Time: 14:31 kdr Administered Medications: No medications were administered Point of Care Testing: Blood Glucose: 09:50 Blood Glucose: 85 mg/dL; sv Ranges: Critical Glucose Levels:Adult <50 mg/dl or >400 mg/dl <40 mg/dl or >180 mg/dl Disposition: 11/23/18 11:14 Transfer ordered to Psych Facility. Diagnosis is Altered mental status, unspecified. - Reason for transfer: Higher level of care. - Accepting physician is [facility]. - Condition is Fair. - Problem is an acute exacerbation. - Symptoms are unchanged. Signatures: Dispatcher [employer] [facility] Fabiola Ospina RN RN sv James Worthington MD MD [facility] Dee Rao RN RN hb Wise, Tara, RN RN tw2 Corrections: (The following items were deleted from the chart) 10:46 10:04 Home Meds: Keppra Oral; hb sv 10:46 10:04 Home Meds: Lamictal Oral; hb sv 10:46 10:04 Home Meds: Paxil Oral; hb sv 10:46 10:04 Home Meds: Wellbutrin Oral; hb sv 12:44 10:46 PMHx: brain aneurysm with metal; sv tw2 16:45 11:14 11/23/2018 11:14 Transfer ordered to Psych Facility. Diagnosis is Altered mental sv status, unspecified. Reason for transfer: Higher level of care. Accepting physician is [facility]. Condition is Fair. Problem is an acute exacerbation. Symptoms are unchanged. kdr
[2018-11-23 11:32] LABS: ALT/SGPT 21 U/L (12-78); AST/SGOT 21 U/L (15-37); Albumin 4.4 g/dL (3.4-5.0); Alkaline Phosphatase 94 U/L (45-117); BUN Blood Urea Nitrogen 18 mg/dL (7-18); Bicarbonate 29 mmol/L (21-32); Bilirubin Direct 0.2 mg/dL (0-0.2); Bilirubin Total 0.8 mg/dL (0.2-1.0); Glucose Level 91 mg/dL (74-106); Potassium 3.3 mmol/L (3.5-5.1); Protein, Total 7.4 g/dL (6.4-8.2); Sodium Level 142 mmol/L (136-145)
[2018-11-23 14:21] LABS: Barbiturates NEGATIVE (NEGATIVE); Benzodiazepines NEGATIVE (NEGATIVE); Cocaine NEGATIVE (NEGATIVE); METHAMPHETAM NEGATIVE (NEGATIVE); Methadone NEGATIVE (NEGATIVE); Opiates NEGATIVE (NEGATIVE); Phencyclidine NEGATIVE (NEGATIVE); THC Cannibis NEGATIVE (NEGATIVE)
[2018-11-23 15:04] LABS: Urine Blood TRACE (NEG); Urine Glucose NEGATIVE (NEG); Urine Protein NEGATIVE (NEG); Urine Specific Gravity 1.025 (1.005-1.030); Urine pH 5.5 (5.0-7.0)
[2018-11-23 18:25] VITALS: TEMP 99.8
[2018-11-23 18:34] VITALS: BP 138/89; O2SAT 98
--- NOTE | 2018-11-24 18:25 | EKG ---
Test Date: 2018-11-23 Test Time: 09:54:41 Tax Analyst: MEASUREMENT RESULTS: Intervals: Rate: 89 VA: 170 QRSD: 104 QT: 392 QTc: 476 [place]: P: 37 VA: 170 QRS: -41 T: 126 INTERPRETIVE STATEMENTS: Normal sinus rhythm Left axis deviation Left ventricular hypertrophy with repolarization abnormality Abnormal ECG Compared to ECG 11/21/2018 12:21:09 Left-axis deviation now present Left ventricular hypertrophy now present Early repolarization now present T-wave abnormality no longer present Possible ischemia no longer present Prolonged QT interval no longer present Electronically Signed On 11-24-18 18:22:57 CDT by Bj Vang
== END 2018-11-23 16:45 ==
LOC: ER 09:28
DX: R41.82 Altered mental status, unspecified (principal); I10 Essential (primary) hypertension; F32.9 Major depressive disorder, single episode, unspecified; G40.909 Epilepsy, unspecified, not intractable, without status epilepticus; Z88.5 Allergy status to narcotic agent
CPT/HCPCS: 36415; 51702; 70450; 80048; 80076; 80307; 80320; 80329; 81003; 82962; 85025; 85610; 85730; 93005; 99285

== ENCOUNTER 2019-08-18 14:28 | Emergency (ER) | payer OTHER ==
--- NOTE | 2019-08-18 16:33 | ER ---
Nurse's Notes [facility] Name: Pati Romero Age: 54 yrs Sex: Female : 1965 Arrival Date: 08/18/2019 Time: 14:30 Bed 27 Private MD: Diagnosis: Pain in right finger(s)-middle and fourth fingers Presentation: 08/17 14:39 Chief complaint: Patient states: pain to R 2nd and 3rd finger that began yesterday ss after trying to catch a heavy bag that was falling. Coronavirus screen: Proceed with normal triage. Patient denies a cough. Patient denies shortness of breath or difficulty breathing. Patient denies measured and/or subjective temperature greater than 100.4F prior to today's visit. Patient denies travel on a cruise ship or to a country the [facility] currently lists as an affected area. Patient denies contact with known and/or suspected case of COVID-19. Ebola Screen: Patient denies exposure to infectious person. Patient denies travel to an Ebola-affected area in the 21 days before illness onset. Initial Sepsis Screen: Does the patient meet any 2 criteria? No. Patient's initial sepsis screen is negative. Does the patient have a suspected source of infection? No. Patient's initial sepsis screen is negative. Risk Assessment: Do you want to hurt yourself or someone else? Patient reports no desire to harm self or others. Onset of symptoms was August 17, 2019. 14:39 Method Of Arrival: Ambulatory ss 14:39 Acuity: SUSAN 4 ss Historical: - Allergies: 14:41 Demerol; ss - PMHx: 14:41 brain aneurysm with metal; pt was 26 yrs old; Depression; Hypertension; Seizures; ss - Immunization history:: Adult Immunizations up to date. - Social history:: Smoking status: Patient denies any tobacco usage or history of. Screenin:30 Abuse screen: Denies threats or abuse. Nutritional screening: No deficits noted. aa5 Tuberculosis screening: No symptoms or risk factors identified. Fall Risk None identified. Assessment: 15:30 General: Appears comfortable, Behavior is calm, cooperative. Pain: Complains of pain in aa5 fright middle finger and right ring finger. Neuro: Level of Consciousness is awake, alert, obeys commands, Oriented to person, place, time, situation. Cardiovascular: Capillary refill < 3 seconds is brisk in bilateral fingers Patient's skin is warm and dry. Respiratory: Airway is patent Respiratory effort is even, unlabored, Respiratory pattern is regular, symmetrical. GI: No signs and/or symptoms were reported involving the gastrointestinal system. : No signs and/or symptoms were reported regarding the genitourinary system. EENT: No signs and/or symptoms were reported regarding the EENT system. Derm: Skin is pink, warm \T\ dry. Musculoskeletal: Range of motion: intact in all extremities, Mild swelling noted to right middle finger and right ring finger. 16:43 Reassessment: Patient is alert, oriented x 3, equal unlabored respirations, skin aa5 warm/dry/pink. Vital Signs: 14:39 BP 134 / 89; Pulse 78; Resp 16; Temp 97.0(TE); Pulse Ox 99% on R/A; Weight 77.11 kg; ss Height 5 ft. 3 in. (160.02 cm); 14:39 Body Mass Index 30.11 (77.11 kg, 160.02 cm) ED Course: 14:30 Patient arrived in ED. mr 14:40 Triage completed. ss 14:41 Arm band placed on left wrist. ss 15:22 Tasha Paniagua, JAE is Primary Nurse. aa5 15:30 Patient has correct armband on for positive identification. Bed in low position. Call aa5 light in reach. Side rails up X 1. 15:34 Charly Hogan PA is PHCP. cp 15:34 Antonio Mendoza MD is Attending Physician. cp 15:35 James Worthington MD is Attending Physician. cp 16:12 XRAY Hand RIGHT 3 View In Process Unspecified. EDMS 16:43 No provider procedures requiring assistance completed. Patient did not have IV access aa5 during this emergency room visit. Administered Medications: 16:43 Drug: Ibuprofen 800 mg Route: PO; ls4 16:43 Follow up: Response: Medication administered at discharge. aa5 16:43 Follow up: Response: No adverse reaction aa5 16:43 Drug: Tylenol 650 mg Route: PO; ls4 16:43 Follow up: Response: Medication administered at discharge. aa5 16:43 Follow up: Response: Medication administered at discharge. aa5 16:43 Follow up: Response: No adverse reaction aa5 Outcome: 16:33 Discharge ordered by . jonathan 16:42 Discharged to home ambulatory. aa5 16:42 Condition: good 16:42 Discharge instructions given to patient, Instructed on discharge instructions, follow up and referral plans. medication usage, Demonstrated understanding of instructions, follow-up care, medications, Prescriptions given X 1. 16:43 Patient left the ED. ls4 Signatures: Dispatcher [employer] EDWI Julian Laura PaniaguaTasha, RN RN aa5 Rocío Grace RN RN Charly Mccullough, PA PA Magaly Sanford RN RN ls4
--- NOTE | 2019-08-18 16:33 | EDPHYS ---
Physician Documentation [facility] Name: Pati Romero Age: 54 yrs Sex: Female : 1965 Arrival Date: 08/18/2019 Time: 14:30 Bed 27 Private MD: ED Physician James Worthington HPI: 08/17 15:45 This 54 yrs old Female presents to ER via Ambulatory with complaints of Finger cp Injury. 15:45 The patient or guardian reports pain, tenderness. cp 15:45 The complaints affect the right middle and fourth fingers. Onset: The symptoms/episode cp began/occurred yesterday. 15:45 Associated signs and symptoms: Pertinent negatives: cyanosis distally, numbness cp distally. 15:45 Patient reports injury occurred as she grabbed a bag that fell from her shoulder cp yesterday. Historical: - Allergies: 14:41 Demerol; ss - PMHx: 14:41 brain aneurysm with metal; pt was 26 yrs old; Depression; Hypertension; Seizures; ss - Immunization history:: Adult Immunizations up to date. - Social history:: Smoking status: Patient denies any tobacco usage or history of. ROS: 15:50 MS/extremity: Positive for pain, tenderness, of the right fourth and fifth fingers, cp Negative for deformity, paresthesias. 15:50 Skin: Negative for rash. cp 15:50 All other systems are negative. Exam: 16:00 Musculoskeletal/extremity: Extremities: grossly normal except: noted in the right cp middle and fourth fingers: pain, tenderness, There is no evidence of mild swelling noted proximal interphalangeal joint right middle finger, contusion, deformity. 16:00 Skin: cellulitis, is not appreciated, on the right hand, no rash present. on the right cp hand. Vital Signs: 14:39 BP 134 / 89; Pulse 78; Resp 16; Temp 97.0(TE); Pulse Ox 99% on R/A; Weight 77.11 kg; ss Height 5 ft. 3 in. (160.02 cm); 14:39 Body Mass Index 30.11 (77.11 kg, 160.02 cm) ss MDM: 15:39 Patient medically screened. cp 15:45 Differential diagnosis: dislocation, closed fracture, contusion. cp 16:32 Data reviewed: vital signs, nurses notes, radiologic studies, plain films, and as a cp result, I will discharge patient. 16:32 Counseling: I had a detailed discussion with the patient and/or guardian regarding: the cp historical points, exam findings, and any diagnostic results supporting the discharge/admit diagnosis, radiology results, to return to the emergency department if symptoms worsen or persist or if there are any questions or concerns that arise at home. Response to treatment: the patient's symptoms have mildly improved after treatment. 08/17 15:41 Order name: XRAY Hand RIGHT 3 View cp 08/17 16:27 Order name: Finger Splint; Complete Time: 16:42 cp Administered Medications: 16:43 Drug: Ibuprofen 800 mg Route: PO; ls4 16:43 Follow up: Response: Medication administered at discharge. aa5 16:43 Follow up: Response: No adverse reaction aa5 16:43 Drug: Tylenol 650 mg Route: PO; ls4 16:43 Follow up: Response: Medication administered at discharge. aa5 16:43 Follow up: Response: Medication administered at discharge. aa5 16:43 Follow up: Response: No adverse reaction aa5 Disposition: 16:45 Chart complete. 08/18 03:30 Co-signature as Attending Physician, James Worthington MD I agree with the assessment and kdr plan of care. Disposition: 08/18/19 16:33 Discharged to Home. Impression: Pain in right finger(s) - middle and fourth fingers. - Condition is Stable. - Discharge Instructions: Finger Sprain, Adult. - Prescriptions for Naprosyn 500 mg Oral Tablet - take 1 tablet by ORAL route 2 times per day take with food; 20 tablet. - Medication Reconciliation Form, Thank You Letter, Antibiotic Education, Prescription Opioid Use form. - Follow up: Private Physician; When: 2 - 3 days; Reason: Recheck today's complaints. - Problem is new. - Symptoms have improved. Signatures: Dispatcher [employer] EDMS James Worthington MD MD [facility] Rocío Grace RN RN Charly Hogan PA PA cp Magaly Lockwood RN RN ls4 Tasha Paniagua RN aa5 Corrections: (The following items were deleted from the chart) 08/17 16:43 16:33 08/18/2019 16:33 Discharged to Home. Impression: Pain in right finger(s) - middle ls4 and fourth fingers. Condition is Stable. Forms are Medication Reconciliation Form, Thank You Letter, Antibiotic Education, Prescription Opioid Use. Follow up: Private Physician; When: 2 - 3 days; Reason: Recheck today's complaints. Problem is new. Symptoms have improved. cp
[2019-08-18] MEDS ORDERED: ACETAMINOPHEN 325 MG TABLET ONE (16:43)
[2019-08-18] MEDS ORDERED: IBUPROFEN 400 MG TAB ONE (16:43)
[2019-08-18 16:48] VITALS: BP 134/89; TEMP 97; O2SAT 99
--- NOTE | 2019-08-18 16:52 | RAD REPORT ---
EXAM DESCRIPTION: RAD - Hand Right 3 View - 08/18/2019 4:10 pm CLINICAL HISTORY: Right hand pain status post injury FINDINGS: Curvilinear lucency overlies the base of the second proximal phalanx seen on the lateral v iew. It is not seen on the other views and probably is not significant. However, clinical correlation is needed to see patient has point tenderness in this region to suggest a fracture. No dislocation
--- OUTSIDE RECORDS SUMMARY | 2019-08-18 17:40 | XMS REPORT | Continuity of Care Document ---
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 Ne uro (disorder) Essential tremor Active Problem 06/06/2019 Mi adri (disorder) Neuro History of - Active Problem 06/06/2019 [facility] subarachnoid Neuro hemorrhage (context-dependent category) Hypertensive Active Problem 06/06/2019 [facility] r disorder, systemic N euro arterial (disorder) Hypothyroidism Active Problem 06/06/2019 Misc her (disorder) Neuro Medications Medication Details Route Status Patient Ordering Order Source Instructions Provider Date citalopram 10 mg 10 mg = 1 Active [facility] oral tablet tab, PO, 019 Neuro Daily, # 30 tab, 0 Refill(s) primidone 50 mg 50 mg = 1 Active Mische r oral tablet tab, PO, 019 Neuro Bedtime, # 30 tab, 4 Refill(s), Pharmacy: [facility] [address] [place] [address], [place] PARoxetine 40 mg 40 mg = 1 Active Misch er oral tablet tab, PO, 019 Neuro Daily, # 30 tab, 0 Refill(s) Famotidine 20 MG 20 mg = 1 Active Misch er Oral Tablet tab, PO, 019 Neuro Daily, 0 Refill(s) 24 HR 100 mg = 1 Active [facility] lamotrigine 100 tab, PO, 019 Neuro MG Extended Daily, # 30 Release Enteric tab, 0 Coated Tablet Refill(s) [Lamictal] amLODIPine 5 mg 5 mg = 1 Active [facility] oral tablet tab, PO, 019 Neuro Daily, # 90 tab, 0 Refill(s) Levetiracetam See Active [facility] 500 MG Oral Instructions 019 Neuro Tablet , 1 tab PO QAM, 2 tabs PO QPM, 0 Refill(s) levothyroxine 150 Active [facility] 150 mcg (0.15 microgram = 019 Neuro mg) oral tablet 1 tab, PO, Daily, # 30 tab, 0 Refill(s) 24 HR Bupropion 150 mg = 1 Active [facility] Hydrochloride tab, PO, 019 Neuro 150 MG Extended Q24H, # 30 Release Tablet tab, 0 Refill(s) lamotrigine 200 200 mg = 1 Active [facility]isch er MG Oral Tablet tab, PO, 019 Neuro BID, # 180 tab, 0 Refill(s) Allergies, Adverse Reactions, Alerts Substance Category Reaction Severity Reaction Status Date Comments S ource type Reported Demerol Assertion Drug Active Mische r allergy Neuro Immunizations No Data Provided for [...] Signs Vital Sign Value Date Comments Source Systolic (mm Hg) 112 12/27/2018 [facility] Diastolic (mm Hg) 78 12/27/2018 [facility] Heart Rate 84 12/27/2018 [facility] Respitory Rate 16 12/27/2018 [facility] Height 160.02 cm 12/27/2018 [facility] Weight 73.182 12/27/2018 [facility] BMI Calculated 28.58 12/27/2018 [facility] Weight 77.727 07/26/2018 [facility] Height 157.48 cm 07/26/2018 [facility] BMI Calculated 31.34 07/26/2018 [facility] Heart Rate 71 07/26/2018 [facility] Respitory Rate 16 07/26/2018 [facility] Systolic (mm Hg) 156 07/26/2018 [facility] Diastolic (mm Hg) 97 07/26/2018 [facility] Encounters Location Location Encounter Encounter Reason Attending ADM ME Stat Source Details Type Number For Provider Date Date Visit Outpatient [id number] Dariel 07/26 [facility] [place] [facility] [id number] Dariel 07/26 07/27 [facility] /2018 [facility] [place] [facility] [id number] Dariel 11/07 [facility] [place] Out[facility] [id number] Dariel 11/15 [facility] Outpatient [id number] Dariel 11/15 11/16 [facility] [place] [facility] [id number] Dariel 12/27 Active [facility] Outpatient [id number] Dariel 12/27 12/28 [facility] [place] [facility] [id number] Dariel 03/28 Active [facility] [place] [facility] Ambulatory [id number] Dariel 03/28 03/28 [facility] [place] [facility] [id number] Dariel 06/03 Active [facility] [place] [facility] Ambulatory [id number] Dariel 06/03 06/03 [facility] [place] Procedures Procedure Code Date Perfomer Comments Source Aneurysm [id number] [facility] clipping Assessment and Plan No Data Provided for This Section Plan of Care No Data Provided for This Section Social History Social History Date Source Social History TypeResponse 12/27/2018 [facility] Smoking Status Never smoker; Exposure to Tobacco Smoke None; Cigarette Smoking Last 365 Days No; Reg Smoking Cessation Counseling No entered on: 12/27/18 Family History No Data Provided for This Section Advance Directives No Data Provided for This Section Functional Status No Data Provided for This Section
== END 2019-08-18 16:43 | disposition home or self-care (01) ==
LOC: ER 14:28
DX: M79.644 Pain in right finger(s) (principal); I10 Essential (primary) hypertension; Z88.5 Allergy status to narcotic agent
CPT/HCPCS: 99283

== ENCOUNTER 2021-11-22 12:00 | Emergency (ER) | payer OTHER ==
--- OUTSIDE RECORDS SUMMARY | 2021-11-22 12:12 | XMS REPORT | Continuity of Care Document ---
:1965 Author Organization [facility] t Address [address] [place] [address] Care Team Providers Name Role Phone Willow Sachin Primary Care Physician Markos Mackay Attending Clinician Ting Mendoza MA Attending Clinician Unavailable DELORES RODRIGUES Attending Clinician Unavailable MARKOS MACKAY Attending Clinician Unavailable Doctor Unassigned, [place] Attending Clinician Unavailable Nika Vu RN Attending Clinician Unavailable LEXUS VILLA K.HRadha Attending Clinician Unavailable Lexus Villa MD K.H. Attending Clinician ALLEN SOLORIO Attending Clinician Unavailable Ольга Daniels PT Attending Clinician Unavailable Allen Solorio MD Attending Clinician Ijeoma Retana PTA Attending Clinician Unavailable MIKEY BRUMFIELD Attending Clinician Unavailable Therapy-Walkin, Pcp-Phys Attending Clinician Unavailable Jing Szymanski MD Attending Clinician JING SZYMANSKI Attending Clinician Unavailable Payers Payer Name Policy Type Policy Number Effective Date Expiration Date S ource Problems Condition Condition Condition Status Onset Resolution Last Treating Co mments Source Name Details Category Date Date Treatment Clinician Date TREMOR, TREMOR, Diagnosis Active 2020-032020-12-31 Memoria UNSPECIFIE UNSPECIFIE 0-11 07:25:00 l D D Active 00:00: [place] [address] Chronic Chronic Disease Active Univers left left 8-25 ity of shoulder shoulder 00:00: [place] pain pain [facility] Chronic Chronic Disease Active Univers left left 8-25 ity of shoulder shoulder 00:00: [place] pain pain [facility] No known No known Disease Unive rs active active ity of problems problems [facility] 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 (disorder) (disorder) Active Problem 09/30/2021 [facility] Essential Essential Problem Active 2021-09-30 Memoria tremor tremor 22:51:06 l (disorder) (disorder) He rmann Active Problem 09/30/2021 [facility] History of History Problem Active 2021-09-30 Memoria - of - 22:51:06 l subarachno subarachno He rmann id id hemorrhage hemorrhage (context-d (context-d ependent ependent category) category) Active Problem 09/30/2021 [facility] Hypertensi Hypertens Problem Active 2021-09-30 Memoria ve laurita 22:51:06 l disorder, disorder, Herm clarice systemic systemic arterial arterial (disorder) (disorder) Active Problem 09/30/2021 [facility] Hypothyroi Hypothyro Problem Active 2021-09-30 Memoria dism idism 22:51:06 l (disorder) (disorder) He rmann Active Problem 09/30/2021 [facility] Tremor Tremor Problem Active 2021-09-30 Mem oria (finding) (finding) 22:51:06 l Active [place] Problem 09/30/2021 [facility] Allergies, Adverse Reactions, Alerts Allergy Allergy Status Severity Reaction(s) Onset Inactive Treating Comm ents Source Name Type Date Date Clinician n Propensi Active ty to 5-26 adverse 00:00: reaction 00 to drug Abilify Propensi Active - Oral ty to 4-20 adverse 00:00: reaction 00 to drug Abilify Propensi Active ty to 2-21 adverse 00:00: reaction 00 to drug Meperidi Propensi Active Anaphylaxis Tongue U nivers ne (Pf) ty to 3-30 swells ity of adverse 00:00: and [place] reaction 00 throat Medical s closes Branch MEPERIDI DRUG Active Anaphylaxis Uni vers NE (PF) 3-30 ity of 00:00: [place] 00 [facility] Branch Demerol Demerol Active Erika Newman NO KNOWN Drug Active Univers ALLERGIE Class ity of S [facility] Social History Social Habit Start Date Stop Date Quantity Comments Source Exposure to Not sure [facility] SARS-CoV-2 [facility] (event) Branch Alcohol intake 2019-09-19 2019-09-19 Ex-drinker University 00:00:00 00:00:00 (finding) [facility] Tobacco use and 2019-09-19 2019-09-19 Never used Universit y of exposure 00:00:00 00:00:00 [facility] Sex Ass[birth year] Universit y of 00:00:00 00:00:00 [facility] Smoking Status Start Date Stop Date Source Social History [facility] [place] Medications Ordered Filled Start Stop Current Ordering Indication Dosage Frequency Signature Comments Components Source Medication Medication Date Date Medication? Clinician (SIG) Name Name Take 1.5 2021-0 No tablets by 9-06 mouth 00:00: nightly 00 Take 1 2021-0 No tablet by 8-24 mouth daily 00:00: 00 Take 1 2021-0 No tablet by 8-24 mouth daily 00:00: 00 &lt 2021-0 No 8-05 00:00: 00 &lt 2021-0 No 250 8-05 00:00: 00 Dose 2021-0 No Unknown 8-05 00:00: 00 Dose 2021-0 No Unknown 8-05 00:00: 00 &lt 2-0 No 8-05 00:00: 00 &lt 2-0 No 250 8-05 00:00: 00 Dose 2021-0 No Unknown 8-05 00:00: 00 Dose 2021-0 No Unknown 8-05 00:00: 00 primidone 2021-0 No 1mg 50 mg 8- tablet 00:00: 00 &lt 2021-0 No 500 8- 00:00: 00 Take 1 2021-0 No tablet by 8-02 mouth daily 00:00: 00 Take 1 2-0 No capsule by 8 mouth at 00:00: bedtime 00 &lt 2022-0 No 20 8 00:00: 00 Dose 2022-0 No Unknown 10-11 00:00: 00 primidone 2022-0 No 1mg 50 mg 8 tablet 00:00: 00 &lt 2022-0 No 500 8 00:00: 00 Take 1 2-0 No tablet by - mouth daily 00:00: 00 Take 1 2-0 No capsule by 8 mouth at 00:00: bedtime 00 &lt 2022-0 No 20 10-11 00:00: 00 Dose 2022-0 No Unknown 10-11 00:00: 00 Take 1 2-0 No tablet by 7- mouth daily 00:00: 00 &lt 2022-0 No 7- 00:00: 00 Dose 2022-0 No Unknown 10-07 00:00: 00 Take 1.5 2-0 No tablets by 7-29 mouth 00:00: nightly 00 Take 1 2-0 No tablet by 7-29 mouth daily 00:00: 00 &lt 2022-0 No 7- 00:00: 00 Dose 2022-0 No Unknown 7 00:00: 00 Take 1.5 2-0 No tablets by 7-29 mouth 00:00: nightly 00 Dose 2022-0 No Unknown 7 00:00: 00 Dose 2022-0 No 20 Unknown 7-13 00:00: 00 &lt 2022-0 No 7-13 00:00: 00 Dose 2022-0 No Unknown 7-13 00:00: 00 &lt 2022-0 No 7-13 00:00: 00 Dose 2022-0 No Unknown 7- 00:00: 00 Dose 2022-0 No 20 Unknown 7-13 00:00: 00 &lt 2022-0 No 7-13 00:00: 00 Dose 2022-0 No Unknown 7-13 00:00: 00 &lt 2022-0 No 7-13 00:00: 00 Take 1 2-0 No tablet by 6-30 mouth daily 00:00: 00 Take 1 2-0 No capsule by 6-30 mouth at 00:00: bedtime 00 Take 1 2022-0 No tablet by 6-30 mouth daily 00:00: 00 Take 1 2022-0 No capsule by 6-30 mouth at 00:00: bedtime 00 &lt 2022-0 No 6-21 00:00: 00 &lt 2022-0 No 6-21 00:00: 00 Take 1 2022-0 No tablet by 6-20 mouth daily 00:00: 00 Take 1 2022-0 No tablet by 6-20 mouth daily 00:00: 00 levothyroxi 2022-0 No 1mcg ne 125 mcg 6-18 tablet 00:00: 00 &lt 2022-0 No 6-18 00:00: 00 levothyroxi 2022-0 No 1mcg ne 125 mcg 6-18 tablet 00:00: 00 &lt 2022-0 No 6-18 00:00: 00 Dose 2022-0 No Unknown 6-13 00:00: 00 Dose 2022-0 No Unknown 6-13 00:00: 00 &lt 2022-0 No 6-08 00:00: 00 &lt 2022-0 No 6-08 00:00: 00 &lt 2022-0 No 6-08 00:00: 00 &lt 2022-0 No 6-08 00:00: 00 azithromyci 2022-0 No mg n 250 mg 6-02 tablet 00:00: 00 Bromfed DM 2022-0 No 10mg/5 2 mg-30 6-02 mL mg-10 mg/5 00:00: mL oral 00 syrup &lt 2022-0 No 6-02 00:00: 00 &lt 2022-0 No 6-02 00:00: 00 azithromyci 2022-0 No mg n 250 mg 6-02 tablet 00:00: 00 Bromfed DM 2022-0 No 10mg/5 2 mg-30 6-02 mL mg-10 mg/5 00:00: mL oral 00 syrup &lt 2022-0 No 6-02 00:00: 00 &lt 2022-0 No 6-02 00:00: 00 amlodipine 2022-0 No 1mg 10 mg 5-28 tablet 00:00: 00 paroxetine 2022-0 No 15mg 40 mg 5-28 tablet 00:00: 00 lisinopril 2022-0 No 1mg 20 5-28 mg-hydrochl 00:00: orothiazide 00 12.5 mg tablet famotidine 2022-0 No 1mg 20 mg 5-28 tablet 00:00: 00 lamotrigine 2022-0 No 1mg 200 mg 5-28 tablet 00:00: 00 lamotrigine 2022-0 No 1mg 100 mg 5-28 tablet 00:00: 00 Keppra 500 2022-0 No 2mg mg tablet 5-28 00:00: 00 levothyroxi 2022-0 No 1mcg ne 137 mcg 5-28 tablet 00:00: 00 prazosin 1 2022-0 No 1mg mg capsule 5-28 00:00: 00 gabapentin 2022-0 No 1mg 300 mg 5-28 capsule 00:00: 00 amlodipine 2022-0 No 1mg 10 mg 5-28 tablet 00:00: 00 paroxetine 2022-0 No 15mg 40 mg 5-28 tablet 00:00: 00 lisinopril 2022-0 No 1mg 20 5-28 mg-hydrochl 00:00: orothiazide 00 12.5 mg tablet famotidine 2022-0 No 1mg 20 mg 5-28 tablet 00:00: 00 lamotrigine 2022-0 No 1mg 200 mg 5-28 tablet 00:00: 00 lamotrigine 2022-0 No 1mg 100 mg 5-28 tablet 00:00: 00 Keppra 500 2022-0 No 2mg mg tablet 5-28 00:00: 00 levothyroxi 2022-0 No 1mcg ne 137 mcg 5-28 tablet 00:00: 00 prazosin 1 2022-0 No 1mg mg capsule 5-28 00:00: 00 gabapentin 2022-0 No 1mg 300 mg 5-28 capsule 00:00: 00 primidone 2022-0 Yes 50 mg = 1 Mem oria 50 mg oral 4-20 tab, PO, l tablet 20:38: Bedtime, # Evonne nn 00 90 tab, 1 Refill(s), Pharmacy: [facility], 157.48, cm, 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, 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, 95.455, kg, 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, Weight primidone 2-0 Yes 50 mg = 1 Mem oria 50 mg oral 4-20 tab, PO, l tablet 20:38: Bedtime, # Evonne nn 00 90 tab, 1 Refill(s), [facility], 157.48, cm, 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, Height, 95.455, kg, 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, 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 Dose 2-0 No Unknown 4-20 00:00: 00 Dose 2022-0 No Unknown 4-20 00:00: 00 Dose 2022-0 No Unknown 4-20 00:00: 00 Dose 2022-0 No Unknown 4-20 00:00: 00 Dose 2022-0 No Unknown 4-20 00:00: 00 Dose 2-0 No Unknown 4-20 00:00: 00 Dose 2-0 No Unknown 4-20 00:00: 00 Dose 2022-0 No Unknown 4-20 00:00: 00 Dose 2022-0 No Unknown 4-20 00:00: 00 Dose 2022-0 No Unknown 4-20 00:00: 00 Dose 2022-0 No Unknown 4-20 00:00: 00 Dose 2022-0 No Unknown 4-20 00:00: 00 Dose 2022-0 No Unknown 4-20 00:00: 00 Dose 2022-0 No Unknown 4-20 00:00: 00 Dose 2022-0 No Unknown 4-20 00:00: 00 Dose 2022-0 No Unknown 4-20 00:00: 00 Dose 2022-0 No Unknown 4-20 00:00: 00 Dose 2022-0 No Unknown 4-20 00:00: 00 Dose 2022-0 No Unknown 4-20 00:00: 00 Dose 2022-0 No Unknown 4-20 00:00: 00 Dose 2022-0 No Unknown 4-20 00:00: 00 Dose 2022-0 No Unknown 4-20 00:00: 00 Dose 2022-0 No Unknown 4-20 00:00: 00 Dose 2022-0 No Unknown 4-20 00:00: 00 Dose 2022-0 No Unknown 4-20 00:00: 00 Dose 2022-0 No Unknown 4-20 00:00: 00 Dose 2022-0 No Unknown 4-20 00:00: 00 Dose 2022-0 No Unknown 4-20 00:00: 00 Dose 2022-0 No Unknown 4-20 00:00: 00 Dose 2022-0 No Unknown 4-20 00:00: 00 Dose 2022-0 No Unknown 4-20 00:00: 00 Dose 2022-0 No Unknown 4-20 00:00: 00 Dose 2022-0 No Unknown 4-20 00:00: 00 Dose 2022-0 No Unknown 4-20 00:00: 00 Dose 2022-0 No Unknown 4-20 00:00: 00 Dose 2022-0 No Unknown 4-20 00:00: 00 Dose 2022-0 No Unknown 4-20 00:00: 00 Dose 2022-0 No Unknown 4-20 00:00: 00 Dose 2022-0 No Unknown 4-20 00:00: 00 Dose 2022-0 No Unknown 4-20 00:00: 00 Dose 2022-0 No Unknown 4-20 00:00: 00 Dose 2022-0 No Unknown 4-20 00:00: 00 Dose 2022-0 No Unknown 4-20 00:00: 00 Dose 2022-0 No Unknown 4-20 00:00: 00 Dose 2022-0 No Unknown 4-20 00:00: 00 Dose 2022-0 No Unknown 4-20 00:00: 00 Dose 2022-0 No Unknown 4-20 00:00: 00 Dose 2022-0 No Unknown 4-20 00:00: 00 Dose 2022-0 No Unknown 4-20 00:00: 00 Dose 2022-0 No Unknown 4-20 00:00: 00 Dose 2022-0 No Unknown 4-20 00:00: 00 Dose 2022-0 No Unknown 4-20 00:00: 00 Dose 2022-0 No Unknown 4-20 00:00: 00 Dose 2022-0 No Unknown 4-20 00:00: 00 Dose 2022-0 No Unknown 4-20 00:00: 00 Dose 2022-0 No Unknown 4-20 00:00: 00 Dose 2022-0 No Unknown 4-20 00:00: 00 Dose 2022-0 No Unknown 4-20 00:00: 00 Dose 2022-0 No Unknown 4-20 00:00: 00 Dose 2022-0 No Unknown 4-20 00:00: 00 Dose 2022-0 No Unknown 4-20 00:00: 00 Dose 2022-0 No Unknown 4-20 00:00: 00 Dose 2022-0 No Unknown 4-20 00:00: 00 Dose 2022-0 No Unknown 4-20 00:00: 00 Dose 2022-0 No Unknown 4-20 00:00: 00 Dose 2022-0 No Unknown 4-20 00:00: 00 Dose 2022-0 No Unknown 4-20 00:00: 00 Dose 2022-0 No Unknown 4-20 00:00: 00 Dose 2022-0 No Unknown 4-20 00:00: 00 Dose 2022-0 No Unknown 4-20 00:00: 00 Dose 2022-0 No Unknown 4-20 00:00: 00 Dose 2022-0 No Unknown 4-20 00:00: 00 Dose 2022-0 No Unknown 4-20 00:00: 00 Dose 2022-0 No Unknown 4-20 00:00: 00 Dose 2022-0 No Unknown 4-20 00:00: 00 Dose 2022-0 No Unknown 4-20 00:00: 00 Dose 2022-0 No Unknown 4-20 00:00: 00 Dose 2022-0 No Unknown 4-20 00:00: 00 Dose 2022-0 No Unknown 4-20 00:00: 00 Dose 2022-0 No Unknown 4-20 00:00: 00 triamcinolo 2-0 No 1% ne 2-16 acetonide 00:00: 0.1 % 00 dental paste prednisone 2-0 No 1mg 20 mg 2-16 tablet 00:00: 00 Lidocaine 2-0 No 5% Viscous 2 % 2-16 mucosal 00:00: solution 00 chlorhexidi 2-0 No 15% ne 2-16 gluconate 00:00: 0.12 % 00 mouthwash triamcinolo 2022-0 No 1% ne 2-16 acetonide 00:00: 0.1 % 00 dental paste prednisone 2022-0 No 1mg 20 mg 2-16 tablet 00:00: 00 Lidocaine 2022-0 No 5% Viscous 2 % 2-16 mucosal 00:00: solution 00 chlorhexidi 2022-0 No 15% ne 2-16 gluconate 00:00: 0.12 % 00 mouthwash famotidine 2-0 No 1mg 20 mg 2-09 tablet 00:00: 00 lisinopril 2022-0 No 1mg 20 2-09 mg-hydrochl 00:00: orothiazide 00 12.5 mg tablet amlodipine 2022-0 No 1mg 10 mg 2-09 tablet 00:00: 00 paroxetine 2022-0 No 15mg 40 mg 2-09 tablet 00:00: 00 Keppra 500 2022-0 No 2mg mg tablet 2- 00:00: 00 lamotrigine 2022-0 No 1mg 100 mg 2-09 tablet 00:00: 00 lamotrigine 2022-0 No 1mg 200 mg 2-09 tablet 00:00: 00 primidone 2022-0 No 1mg 50 mg 2-09 tablet 00:00: 00 paroxetine 2022-0 No 15mg 40 mg 2-09 tablet 00:00: 00 levothyroxi 2022-0 No 1mcg ne 137 mcg 2-09 tablet 00:00: 00 prazosin 1 2022-0 No 1mg mg capsule 2-09 00:00: 00 prazosin 1 2022-0 No 1mg mg capsule 2-09 00:00: 00 famotidine 2022-0 No 1mg 20 mg 2-09 tablet 00:00: 00 lisinopril 2022-0 No 1mg 20 2-09 mg-hydrochl 00:00: orothiazide 00 12.5 mg tablet amlodipine 2-0 No 1mg 10 mg 2-09 tablet 00:00: 00 paroxetine 2022-0 No 15mg 40 mg 2-09 tablet 00:00: 00 Keppra 500 2022-0 No 2mg mg tablet 2-09 00:00: 00 lamotrigine 2022-0 No 1mg 100 mg 2-09 tablet 00:00: 00 lamotrigine 2022-0 No 1mg 200 mg 2-09 tablet 00:00: 00 primidone 2022-0 No 1mg 50 mg 2-09 tablet 00:00: 00 paroxetine 2022-0 No 15mg 40 mg 2-09 tablet 00:00: 00 levothyroxi 2022-0 No 1mcg ne 137 mcg 2-09 tablet 00:00: 00 prazosin 1 2022-0 No 1mg mg capsule 2-09 00:00: 00 prazosin 1 2022-0 No 1mg mg capsule 2-09 00:00: 00 paroxetine 2022-0 No 15mg 40 mg 1-18 tablet 00:00: 00 prazosin 1 2022-0 No 1mg mg capsule 1-18 00:00: 00 paroxetine 2022-0 No 15mg 40 mg 1-18 tablet 00:00: 00 prazosin 1 2022-0 No 1mg mg capsule 1-18 00:00: 00 paroxetine 2022-0 No 15mg 40 mg 1-13 tablet 00:00: 00 prazosin 1 2-0 No 1mg mg capsule 1-13 00:00: 00 paroxetine 2022-0 No 15mg 40 mg 1-13 tablet 00:00: 00 prazosin 1 2-0 No 1mg mg capsule 1-13 00:00: 00 amlodipine 2022-0 No 1mg 10 mg 1-04 tablet 00:00: 00 lisinopril 2022-0 No 1mg 20 1-04 mg-hydrochl 00:00: orothiazide 00 12.5 mg tablet famotidine 2022-0 No 1mg 20 mg 1-04 tablet 00:00: 00 Keppra 500 2022-0 No 2mg mg tablet 1-04 00:00: 00 levothyroxi 2022-0 No 1mcg ne 137 mcg 1-04 tablet 00:00: 00 gabapentin 2022-0 No 1mg 300 mg 1-04 capsule 00:00: 00 amlodipine 2022-0 No 1mg 10 mg 1-04 tablet 00:00: 00 lisinopril 2022-0 No 1mg 20 1-04 mg-hydrochl 00:00: orothiazide 00 12.5 mg tablet famotidine 2022-0 No 1mg 20 mg 1-04 tablet 00:00: 00 Keppra 500 2022-0 No 2mg mg tablet 1-04 00:00: 00 levothyroxi 2022-0 No 1mcg ne 137 mcg 1-04 tablet 00:00: 00 gabapentin 2022-0 No 1mg 300 mg 1-04 capsule 00:00: 00 paroxetine 2021-1 No 15mg 40 mg 2-16 tablet 00:00: 00 prazosin 1 1-1 No 1mg mg capsule 2-16 00:00: 00 paroxetine 2021-1 No 15mg 40 mg 2-16 tablet 00:00: 00 prazosin 1 2021-1 No 1mg mg capsule 2-16 00:00: 00 propranolol 2020- No 10 mg = 1 M emoria 10 mg oral 1-29 tab, PO, l tablet 21:30: BID, # 60 [place] n 00 tab, 3 Refill(s), Pharmacy: [facility], 157.48, cm, 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, 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, 95.455, kg, 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, 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 propranolol 2020-03 No 10 mg = 1 M emoria 10 mg oral 1-29 tab, PO, l tablet 21:30: BID, # 60 [place] n 00 tab, 3 Refill(s), Pharmacy: [facility], 157.48, cm, 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, 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, 95.455, kg, 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, 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 paroxetine 2020-03 No 15mg 40 mg 1-27 tablet 00:00: 00 risperidone 2020-1 No 1mg 3 mg tablet 1-27 00:00: 00 amlodipine 2020-1 No 1mg 10 mg 1-27 tablet 00:00: 00 prazosin 1 2020-1 No 1mg mg capsule 1-27 00:00: 00 paroxetine 2020-1 No 15mg 40 mg 1-27 tablet 00:00: 00 risperidone 2020-1 No 1mg 3 mg tablet 27 00:00: 00 amlodipine 2020-1 No 1mg 10 mg 1-27 tablet 00:00: 00 prazosin 1 2020-1 No 1mg mg capsule -27 00:00: 00 primidone 2020- Yes 50 mg = 1 Mem oria 50 mg oral 1-18 tab, PO, l tablet 15:43: TID, # 90 [place] n 00 tab, 3 Refill(s), Pharmacy: [facility], 157.48, cm, 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, 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, 95.455, kg, 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, 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 primidone 2020-03 Yes 50 mg = 1 Mem oria 50 mg oral 1-18 tab, PO, l tablet 15:43: TID, # 90 [place] n 00 tab, 3 Refill(s), Pharmacy: [facility], 157.48, cm, 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, 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, 95.455, kg, 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, 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 risperidone 2020-1 No 1mg 3 mg tablet 03-12 00:00: 00 paroxetine 2020-1 No 15mg 40 mg - tablet 00:00: 00 prazosin 1 2020-1 No 1mg mg capsule 03-12 00:00: 00 risperidone 2020-1 No 1mg 3 mg tablet 03-12 00:00: 00 paroxetine 2020-1 No 15mg 40 mg 03-12 tablet 00:00: 00 prazosin 1 2020-1 No 1mg mg capsule 03-12 00:00: 00 primidone 2020-1 No 50 mg = 1 Mem oria 50 mg oral 0-11 tab, PO, l tablet 19:49: Bedtime, # Evonne nn 00 90 tab, 3 Refill(s), Pharmacy: [facility], 160.02, cm, 12/16/20 10:35:00 CDT, Height, 98.636, kg, 12/16/20 10:35:00 CDT, Weight primidone 2020-03 No 50 mg = 1 Mem oria 50 mg oral 0-11 tab, PO, l tablet 19:49: Bedtime, # Evonne nn 00 90 tab, 3 Refill(s), Pharmacy: [facility], 160.02, cm, 12/16/20 10:35:00 CDT, Height, 98.636, kg, 12/16/20 10:35:00 CDT, Weight risperidone 2020-1 No 1mg 3 mg tablet 0-04 00:00: 00 paroxetine 2020-1 No 15mg 40 mg 0-04 tablet 00:00: 00 prazosin 1 2020-1 No 1mg mg capsule 0-04 00:00: 00 risperidone 2020-1 No 1mg 3 mg tablet 0-04 00:00: 00 paroxetine 2020-1 No 15mg 40 mg 0-04 tablet 00:00: 00 prazosin 1 2020-1 No 1mg mg capsule 0-04 00:00: 00 paroxetine 1-0 No 1mg 40 mg 9-02 tablet 00:00: 00 risperidone 2021-0 No 1mg 3 mg tablet 11-11 00:00: 00 prazosin 1 1-0 No 1mg mg capsule 11-11 00:00: 00 paroxetine 2021-0 No 1mg 40 mg - tablet 00:00: 00 risperidone 2021-0 No 1mg 3 mg tablet 11-11 00:00: 00 prazosin 1 1-0 No 1mg mg capsule 11-11 00:00: 00 lisinopril 2021-0 No 1mg 20 8-17 mg-hydrochl 00:00: orothiazide 00 12.5 mg tablet amlodipine 1-0 No 1mg 10 mg 8-17 tablet 00:00: 00 Keppra 500 1-0 No 2mg mg tablet 10-26 00:00: 00 levothyroxi 1-0 No 1mcg ne 137 mcg 8-17 tablet 00:00: 00 gabapentin 2021-0 No 1mg 300 mg 8-17 capsule 00:00: 00 lisinopril 1-0 No 1mg 20 8-17 mg-hydrochl 00:00: orothiazide 00 12.5 mg tablet amlodipine 1-0 No 1mg 10 mg 8-17 tablet 00:00: 00 Keppra 500 1-0 No 2mg mg tablet 10-26 00:00: 00 levothyroxi 1-0 No 1mcg ne 137 mcg 8-17 tablet 00:00: 00 gabapentin 2021-0 No 1mg 300 mg 8-17 capsule 00:00: 00 risperidone 2021-0 No 1mg 3 mg tablet 10-18 00:00: 00 paroxetine 2021-0 No 1mg 40 mg - tablet 00:00: 00 prazosin 1 1-0 No 1mg mg capsule 10-18 00:00: 00 risperidone 2021-0 No 1mg 3 mg tablet 10-18 00:00: 00 paroxetine 2021-0 No 1mg 40 mg - tablet 00:00: 00 prazosin 1 1-0 No 1mg mg capsule 10-18 00:00: 00 lisinopril 2021-0 No 1mg 20 7-15 mg-hydrochl 00:00: orothiazide 00 12.5 mg tablet lisinopril 1-0 No 1mg 20 7-15 mg-hydrochl 00:00: orothiazide 00 12.5 mg tablet risperidone 1-0 No 1mg 3 mg tablet 09-20 00:00: 00 paroxetine 2021-0 No 1mg 40 mg 7-12 tablet 00:00: 00 prazosin 1 1-0 No 1mg mg capsule 09-20 00:00: 00 risperidone 2021-0 No 1mg 3 mg tablet 09-20 00:00: 00 paroxetine 2021-0 No 1mg 40 mg 7-12 tablet 00:00: 00 prazosin 1 1-0 No 1mg mg capsule 09-20 00:00: 00 Keppra 500 2021-0 No 2mg mg tablet 6 00:00: 00 Keppra 500 2021-0 No 1mg mg tablet 6 00:00: 00 Keppra 500 2021-0 No 2mg mg tablet 6 00:00: 00 Keppra 500 1-0 No 1mg mg tablet 6 00:00: 00 ketoconazol 2021-0 No 1% e 2 % 6-02 topical 00:00: cream 00 ketoconazol 2021-0 No 1% e 2 % 6-02 topical 00:00: cream 00 levothyroxi 2021-0 No 1mcg ne 137 mcg 6-02 tablet 00:00: 00 levothyroxi 2021-0 No 1mcg ne 137 mcg 6-02 tablet 00:00: 00 gabapentin 2021-0 No 1mg 300 mg 6-02 capsule 00:00: 00 gabapentin 2021-0 No 1mg 300 mg 6-02 capsule 00:00: 00 ketoconazol 2021-0 No 1% e 2 % 6-02 topical 00:00: cream 00 ketoconazol 2021-0 No 1% e 2 % 6-02 topical 00:00: cream 00 levothyroxi 2021-0 No 1mcg ne 137 mcg 6-02 tablet 00:00: 00 levothyroxi 2021-0 No 1mcg ne 137 mcg 6-02 tablet 00:00: 00 gabapentin 2021-0 No 1mg 300 mg 6-02 capsule 00:00: 00 gabapentin 2021-0 No 1mg 300 mg 6-02 capsule 00:00: 00 lamotrigine 2021-0 No 1mg 100 mg 5-27 tablet 00:00: 00 lamotrigine 2021-0 No 1mg 200 mg 5-27 tablet 00:00: 00 lamotrigine 2021-0 No 1mg 100 mg 5-27 tablet 00:00: 00 lamotrigine 2021-0 No 1mg 200 mg 5-27 tablet 00:00: 00 paroxetine 2021-0 No 1mg 40 mg 5-17 tablet 00:00: 00 risperidone 2021-0 No 1mg 3 mg tablet 5-17 00:00: 00 prazosin 1 1-0 No 1mg mg capsule 5-17 00:00: 00 paroxetine 2021-0 No 1mg 40 mg 5-17 tablet 00:00: 00 risperidone 2021-0 No 1mg 3 mg tablet 5-17 00:00: 00 prazosin 1 1-0 No 1mg mg capsule 5-17 00:00: 00 lamotrigine 2021-0 No 1mg 200 mg 4-28 tablet 00:00: 00 lamotrigine 2021-0 No 1mg 100 mg 4-28 tablet 00:00: 00 lamotrigine 2021-0 No 1mg 100 mg 4-28 tablet 00:00: 00 lamotrigine 2021-0 No 1mg 200 mg 4-28 tablet 00:00: 00 lamotrigine 2021-0 No 1mg 200 mg 4-28 tablet 00:00: 00 lamotrigine 2021-0 No 1mg 100 mg 4-28 tablet 00:00: 00 lamotrigine 2021-0 No 1mg 100 mg 4-28 tablet 00:00: 00 lamotrigine 2021-0 No 1mg 200 mg 4-28 tablet 00:00: 00 lamotrigine 2021-0 No 1mg 100 mg 4-26 tablet 00:00: 00 lamotrigine 2021-0 No 1mg 200 mg 4-26 tablet 00:00: 00 lamotrigine 2021-0 No 1mg 100 mg 4-26 tablet 00:00: 00 lamotrigine 2021-0 No 1mg 100 mg 4-26 tablet 00:00: 00 lamotrigine 2021-0 No 1mg 200 mg 4-26 tablet 00:00: 00 lamotrigine 2021-0 No 1mg 100 mg 4-26 tablet 00:00: 00 amlodipine 2021-0 No 1mg 10 mg 4-19 tablet 00:00: 00 amlodipine 2021-0 No 1mg 10 mg 4-19 tablet 00:00: 00 risperidone 2021-0 No 1mg 3 mg tablet 4-12 00:00: 00 paroxetine 2021-0 No 1mg 40 mg 4-12 tablet 00:00: 00 risperidone 2021-0 No 1mg 3 mg tablet 4-12 00:00: 00 paroxetine 2021-0 No 1mg 40 mg 4-12 tablet 00:00: 00 lisinopril 2021-0 No 1mg 20 4-07 mg-hydrochl 00:00: orothiazide 00 12.5 mg tablet lisinopril 2021-0 No 1mg 20 4-07 mg-hydrochl 00:00: orothiazide 00 12.5 mg tablet Keppra 500 1-0 No 1mg mg tablet 3-24 00:00: 00 Keppra 500 1-0 No 1mg mg tablet 3-24 00:00: 00 risperidone 2021-0 No 1mg 3 mg tablet 3-15 00:00: 00 paroxetine 2021-0 No 1mg 40 mg 3-15 tablet 00:00: 00 risperidone 2021-0 No 1mg 3 mg tablet 3-15 00:00: 00 paroxetine 2021-0 No 1mg 40 mg 3-15 tablet 00:00: 00 hydrochloro 2021-0 No 1mg thiazide 3-04 12.5 mg 00:00: tablet 00 amlodipine 2021-0 No 1mg 10 mg 3-04 tablet 00:00: 00 lisinopril 2021-0 No 1mg 10 mg 3-04 tablet 00:00: 00 lamotrigine 2021-0 No 1mg 100 mg 3-04 tablet 00:00: 00 hydrochloro 2021-0 No 1mg thiazide 3-04 12.5 mg 00:00: tablet 00 amlodipine 2021-0 No 1mg 10 mg 3-04 tablet 00:00: 00 lisinopril 2021-0 No 1mg 10 mg 3-04 tablet 00:00: 00 lamotrigine 2021-0 No 1mg 100 mg 3-04 tablet 00:00: 00 levothyroxi 2021-0 No 1mcg ne 137 mcg 3-01 tablet 00:00: 00 levothyroxi 2021-0 No 1mcg ne 137 mcg 3-01 tablet 00:00: 00 UNITHROID 2020-0 Yes [facility] [place] [facility] UNITHROID 1-0 Yes [facility] 137 mcg 3-01 [facility] of tablet 00:00: [place] [facility] UNITHROID 1-0 Yes [facility] 137 mcg 3-01 [facility] of tablet 00:00: [place] [facility] UNITHROID 1-0 Yes [facility] 137 mcg 3-01 it[facility] of tablet 00:00: [place] [facility] UNITHROID 1-0 Yes [facility] 137 mcg 3-01 [facility] of tablet 00:00: [place] [facility] PARoxetine 1-0 Yes 40mg Take 40 mg U nivers 40 mg 2-12 by mouth ity of tablet 00:00: every [place] morning. [facility] PARoxetine 2020-0 Yes 40mg Take 40 mg U nivers 40 mg 2-12 by mouth ity of tablet 00:00: every [place] morning. [facility] PARoxetine 2020-0 Yes 40mg Take 40 mg U nivers 40 mg 2-12 by mouth ity of tablet 00:00: every [place] morning. [facility] PARoxetine 2020-0 Yes 40mg Take 40 mg U nivers 40 mg 2-12 by mouth ity of tablet 00:00: every [place] morning. [facility] Branch PARoxetine 2020-0 Yes 40mg Take 40 mg U nivers 40 mg 2-12 by mouth ity of tablet 00:00: every [place] morning. Medical Branch risperidone 1-0 No 1mg 3 mg tablet 2-10 00:00: 00 risperidone 1-0 No 1mg 3 mg tablet 2-10 00:00: 00 hydroCHLORO 2021-0 Yes 12.5mg Take 12.5 [facility] thiazide 2-10 mg by ity of 12.5 mg 00:00: mouth [place] tablet 00 every Medical morning. Branch lisinopriL 2020-0 Yes 10mg Take 10 mg U nivers 10 mg 2-10 by mouth ity of tablet 00:00: every [place] [address] morning. Medical Branch risperiDONE 1-0 Yes 3mg Take 3 mg U nivers 3 mg tablet 2-10 by mouth ity of 00:00: daily. [place] [facility] amLODIPine 1-0 Yes 10mg Take 10 mg U nivers 10 mg 2-10 by mouth ity of tablet 00:00: every [place] 00 morning. Medical Branch hydroCHLORO 1-0 Yes 12.5mg Take 12.5 [facility] thiazide 2-10 mg by ity of 12.5 mg 00:00: mouth [place] tablet 00 every Medical morning. Branch lisinopriL 1-0 Yes 10mg Take 10 mg U nivers 10 mg 2-10 by mouth ity of tablet 00:00: every [place] 00 morning. Medical Branch risperiDONE 1-0 Yes 3mg Take 3 mg U nivers 3 mg tablet 2-10 by mouth ity of 00:00: daily. Medical Branch amLODIPine 2020-0 Yes 10mg Take 10 mg U nivers 10 mg 2-10 by mouth ity of tablet 00:00: every [place] 00 morning. Medical Branch hydroCHLORO 1-0 Yes 12.5mg Take 12.5 [facility] thiazide 2-10 mg by ity of 12.5 mg 00:00: mouth [place] tablet 00 every Medical morning. Branch lisinopriL 1-0 Yes 10mg Take 10 mg U nivers 10 mg 2-10 by mouth ity of tablet 00:00: every [place] morning. Medical Branch risperiDONE 2020-0 Yes 3mg Take 3 mg U nivers 3 mg tablet 2-10 by mouth ity of 00:00: daily. [place] [facility] amLODIPine 2020-0 Yes 10mg Take 10 mg U nivers 10 mg 2-10 by mouth ity of tablet 00:00: every [place] morning. Medical Branch hydroCHLORO 1-0 Yes 12.5mg Take 12.5 [facility] thiazide 2-10 mg by ity of 12.5 mg 00:00: mouth [place] tablet 00 every Medical morning. Branch lisinopriL 1-0 Yes 10mg Take 10 mg U nivers 10 mg 2-10 by mouth ity of tablet 00:00: every [place] 00 morning. Medical Branch risperiDONE 1-0 Yes 3mg Take 3 mg U nivers 3 mg tablet 2-10 by mouth ity of 00:00: daily. [place] [facility] amLODIPine 1-0 Yes 10mg Take 10 mg U nivers 10 mg 2-10 by mouth ity of tablet 00:00: every [place] 00 morning. Medical Branch hydroCHLORO 1-0 Yes 12.5mg Take 12.5 [facility] thiazide 2-10 mg by ity of 12.5 mg 00:00: mouth [place] tablet 00 every Medical morning. Branch lisinopriL Yes 10mg Take 10 mg U nivers 10 mg 2-10 by mouth ity of tablet 00:00: every [place] [address] morning. Medical Branch risperiDONE 0 Yes 3mg Take 3 mg U nivers 3 mg tablet 2-10 by mouth ity of 00:00: daily. Medical Branch amLODIPine 2020- Yes 10mg Take 10 mg U nivers 10 mg 2-10 by mouth ity of tablet 00:00: every [place] morning. Medical Branch hydrOXYzine Yes TAKE 1 Univ ers 50 mg 2-06 TABLET BY ity of tablet 00:00: MOUTH 3 [place] TIMES A Medical DAY Branch NEEDED FOR ANXIETY risperiDONE Yes 2mg Take 2 mg U nivers 2 mg tablet 2-06 by mouth ity of 00:00: at [place] [address] bedtime. Medical Branch hydrOXYzine Yes TAKE 1 [facility] ers 50 mg 2-06 TABLET BY ity of tablet 00:00: MOUTH 3 [place] TIMES A Medical DAY Branch NEEDED FOR ANXIETY risperiDONE Yes 2mg Take 2 mg U nivers 2 mg tablet 2-06 by mouth ity of 00:00: at [place] [address] bedtime. Medical Branch hydrOXYzine Yes TAKE 1 [facility] ers 50 mg 2-06 TABLET BY ity of tablet 00:00: MOUTH 3 [place] TIMES A Medical DAY Branch NEEDED FOR ANXIETY risperiDONE 2020- Yes 2mg Take 2 mg U nivers 2 mg tablet 2-06 by mouth ity of 00:00: at [place] [address] bedtime. Medical Branch hydrOXYzine Yes TAKE 1 [facility] ers 50 mg 2-06 TABLET BY ity of tablet 00:00: MOUTH 3 [place] TIMES A Medical DAY Branch NEEDED FOR ANXIETY risperiDONE 2020- Yes 2mg Take 2 mg U nivers 2 mg tablet 2-06 by mouth ity of 00:00: at [place] [address] bedtime. Medical Branch hydrOXYzine Yes TAKE 1 [facility] ers 50 mg 2-06 TABLET BY ity of tablet 00:00: MOUTH 3 [place] TIMES A Medical DAY Branch NEEDED FOR ANXIETY risperiDONE 2020- Yes 2mg Take 2 mg U nivers 2 mg tablet 2-06 by mouth ity of 00:00: at [place] 00 bedtime. Medical Branch paroxetine 1-0 No 1mg 40 mg 2-03 tablet 00:00: 00 Trileptal 2021-0 No 1mg 150 mg 2-03 tablet 00:00: 00 risperidone 2021-0 No 1mg 2 mg tablet 2-03 00:00: 00 hydroxyzine 2021-0 No 1mg HCl 50 mg 2-03 tablet 00:00: 00 paroxetine 2021-0 No 1mg 40 mg 2-03 tablet 00:00: 00 Trileptal 2021-0 No 1mg 150 mg 2-03 tablet 00:00: 00 risperidone 2021-0 No 1mg 2 mg tablet 2-03 00:00: 00 hydroxyzine 2021-0 No 1mg HCl 50 mg 2-03 tablet 00:00: 00 OXcarbazepi 2021-0 Yes 150mg Take 150 U nivers ne 150 mg 2-03 mg by ity of tablet 00:00: mouth [place] (two) Medical times Branch daily. OXcarbazepi 2021-0 Yes 150mg Take 150 U nivers ne 150 mg 2-03 mg by ity of tablet 00:00: mouth [place] (two) Medical times Branch daily. OXcarbazepi 2021-0 Yes 150mg Take 150 U nivers ne 150 mg 2-03 mg by ity of tablet 00:00: mouth [place] (two) Medical times Branch daily. OXcarbazepi 2021-0 Yes 150mg Take 150 U nivers ne 150 mg 2-03 mg by ity of tablet 00:00: mouth [place] (two) Medical times Branch daily. OXcarbazepi 2021-0 Yes 150mg Take 150 U nivers ne 150 mg 2-03 mg by ity of tablet 00:00: mouth [place] ([facility]) Medical times Branch daily. Keppra 500 1-0 No 1mg mg tablet 04-01 00:00: 00 Keppra 500 1-0 No 1mg mg tablet 21 00:00: 00 ibuprofen 2021-0 No 1mg 800 mg 1-15 tablet 00:00: 00 ibuprofen 2021-0 No 1mg 800 mg 1-15 tablet 00:00: 00 ibuprofen 2021-0 Yes 800mg Take 800 Uni vers 800 mg 1-15 mg by ity of tablet 00:00: mouth 3 (three) Medical times Branch daily. ibuprofen 2021-0 Yes 800mg Take 800 Uni vers 800 mg 1-15 mg by ity of tablet 00:00: mouth 3 (three) Medical times Branch daily. ibuprofen 2021-0 Yes 800mg Take 800 Uni vers 800 mg 1-15 mg by ity of tablet 00:00: mouth 3 (three) Medical times Branch daily. ibuprofen 2021-0 Yes 800mg Take 800 Uni vers 800 mg 1-15 mg by ity of tablet 00:00: mouth (three) Medical times Branch daily. ibuprofen 2021-0 Yes 800mg Take 800 Uni vers 800 mg 1-15 mg by ity of tablet 00:00: mouth (three) Medical times Branch daily. hydrochloro 1-0 No 1mg thiazide 1-14 12.5 mg 00:00: tablet 00 lisinopril 2021-0 No 1mg 10 mg 1-14 tablet 00:00: 00 amlodipine 2021-0 No 1mg 10 mg 1-14 tablet 00:00: 00 paroxetine 2021-0 No 1mg 40 mg 1-14 tablet 00:00: 00 risperidone 2021-0 No 1mg 2 mg tablet 1-14 00:00: 00 hydroxyzine 2021-0 No 1mg HCl 50 mg 1-14 tablet 00:00: 00 hydrochloro 2021-0 No 1mg thiazide 1-14 12.5 mg 00:00: tablet 00 lisinopril 2021-0 No 1mg 10 mg 1-14 tablet 00:00: 00 amlodipine 2021-0 No 1mg 10 mg 1-14 tablet 00:00: 00 paroxetine 2021-0 No 1mg 40 mg 1-14 tablet 00:00: 00 risperidone 2021-0 No 1mg 2 mg tablet 1-14 00:00: 00 hydroxyzine 2021-0 No 1mg HCl 50 mg 1-14 tablet 00:00: 00 levETIRAcet 2020-1 Yes TAKE 1 Univ ers am 500 mg 2-31 TABLET BY ity o f tablet 00:00: MOUTH 00 EVERY Medical MORNING Branch AND 2 TABLETS IN THE EVENING levETIRAcet 2019-1 Yes TAKE 1 Univ ers am 500 mg 2-31 TABLET BY ity o f tablet 00:00: MOUTH [place] 00 EVERY Medical MORNING Branch AND 2 TABLETS IN THE EVENING levETIRAcet 2019-03 Yes TAKE 1 [facility] ers am 500 mg 2-31 TABLET BY ity o f tablet 00:00: MOUTH [place] 00 EVERY Medical MORNING Branch AND 2 TABLETS IN THE EVENING levETIRAcet 2019-03 Yes TAKE 1 Univ ers am 500 mg 2-31 TABLET BY ity o f tablet 00:00: MOUTH [place] 00 EVERY Medical MORNING Branch AND 2 TABLETS IN THE EVENING levETIRAcet 2019-03 Yes TAKE 1 Univ ers am 500 mg 2-31 TABLET BY ity o f tablet 00:00: MOUTH 00 EVERY Medical MORNING Branch AND 2 TABLETS IN THE EVENING paroxetine 2019-03 No 1mg 40 mg 2-14 tablet 00:00: 00 risperidone 2019-03 No 1mg 2 mg tablet 2-14 00:00: 00 hydroxyzine 2019-03 No 1mg HCl 50 mg 2-14 tablet 00:00: 00 paroxetine 2019-03 No 1mg 40 mg 2-14 tablet 00:00: 00 risperidone 2019-03 No 1mg 2 mg tablet 2-14 00:00: 00 hydroxyzine 2019-03 No 1mg HCl 50 mg 2-14 tablet 00:00: 00 hydrochloro 2019-03 No 1mg thiazide 2-11 12.5 mg 00:00: tablet 00 amlodipine 2019-03 No 1mg 10 mg 2-11 tablet 00:00: 00 lisinopril 2019-03 No 1mg 10 mg 2-11 tablet 00:00: 00 lamotrigine 2019-03 No 1mg 100 mg 2-11 tablet 00:00: 00 hydrochloro 2019-03 No 1mg thiazide 2-11 12.5 mg 00:00: tablet 00 amlodipine 2019-03 No 1mg 10 mg 2-11 tablet 00:00: 00 lisinopril 2019-03 No 1mg 10 mg 2-11 tablet 00:00: 00 lamotrigine 2019-03 No 1mg 100 mg 2-11 tablet 00:00: 00 lamoTRIgine 2019-03 Yes 100mg Take 100 U nivers 100 mg 2-10 mg by ity of tablet 00:00: mouth 2 (two) Medical times Branch daily. buPROPion 2019-03 Yes 75mg Take 75 mg Un jaye 75 mg 2-10 by mouth 2 ity of tablet 00:00: (two) [place] times Medical daily. Branch lamoTRIgine 2019- Yes 100mg Take 100 U nivers 100 mg 2-10 mg by ity of tablet 00:00: mouth 2 [place] (two) Medical times Branch daily. buPROPion 2020- Yes 75mg Take 75 mg Un jaye 75 mg 2-10 by mouth 2 ity of tablet 00:00: (two) [place] 00 times Medical daily. Branch lamoTRIgine 2019- Yes 100mg Take 100 U nivers 100 mg 2-10 mg by ity of tablet 00:00: mouth 2 [place] (two) Medical times Branch daily. buPROPion 2019- Yes 75mg Take 75 mg Un jaye 75 mg 2-10 by mouth 2 ity of tablet 00:00: (two) [place] times Medical daily. Branch lamoTRIgine 2019- Yes 100mg Take 100 U nivers 100 mg 2-10 mg by ity of tablet 00:00: mouth 2 [place] (two) Medical times Branch daily. buPROPion 2019- Yes 75mg Take 75 mg Un jaye 75 mg 2-10 by mouth 2 ity of tablet 00:00: (two) [place] times Medical daily. Branch lamoTRIgine 2019- Yes 100mg Take 100 U nivers 100 mg 2-10 mg by ity of tablet 00:00: mouth 2 [place] (two) Medical times Branch daily. buPROPion 2019- Yes 75mg Take 75 mg Un j[place] 75 mg 2-10 by mouth 2 ity of tablet 00:00: (two) [place] times Medical daily. Branch paroxetine 2019- No 1mg 40 mg 1-13 tablet 00:00: 00 risperidone 2019- No 1mg 1 mg tablet 1-13 00:00: 00 hydroxyzine 2019- No 1mg HCl 50 mg 1-13 tablet 00:00: 00 paroxetine 2019-1 No 1mg 40 mg 1-13 tablet 00:00: 00 risperidone 2019-1 No 1mg 1 mg tablet 1-13 00:00: 00 hydroxyzine 2019- No 1mg HCl 50 mg 1-13 tablet 00:00: 00 lisinopril 2019- No 1mg 10 mg 0-29 tablet 00:00: 00 hydrochloro 2019-1 No 1mg thiazide 0-29 12.5 mg 00:00: tablet 00 amlodipine 2020-1 No 1mg 10 mg 0-29 tablet 00:00: 00 lisinopril 2020-1 No 1mg 10 mg 0-29 tablet 00:00: 00 hydrochloro 2020-1 No 1mg thiazide 0-29 12.5 mg 00:00: tablet 00 amlodipine 2020-1 No 1mg 10 mg 0-29 tablet 00:00: 00 lamotrigine 2020-1 No 1mg 200 mg 0-27 tablet 00:00: 00 Keppra 500 2019-1 No 1mg mg tablet 0-27 00:00: 00 lamotrigine 2020-1 No 1mg 200 mg 0-27 tablet 00:00: 00 Keppra 500 2019-1 No 1mg mg tablet 0-27 00:00: 00 Keppra 500 2019-1 No 1mg mg tablet 0-24 00:00: 00 Keppra 500 2019-1 No 1mg mg tablet 0-24 00:00: 00 paroxetine 2020-1 No 1mg 40 mg 0-13 tablet 00:00: 00 risperidone 2020-1 No 1mg 1 mg tablet 0-13 00:00: 00 Paxil 10 mg 2019-1 No 1mg tablet 0-13 00:00: 00 hydroxyzine 2020-1 No 1mg HCl 50 mg 0-13 tablet 00:00: 00 paroxetine 2020-1 No 1mg 40 mg 0-13 tablet 00:00: 00 risperidone 2020-1 No 1mg 1 mg tablet 0-13 00:00: 00 Paxil 10 mg 2020-1 No 1mg tablet 0-13 00:00: 00 hydroxyzine 2020-1 No 1mg HCl 50 mg 0-13 tablet 00:00: 00 paroxetine 2020-0 No 1mg 40 mg 9-18 tablet 00:00: 00 risperidone 2020-0 No 1mg 1 mg tablet 9-18 00:00: 00 hydroxyzine 2020-0 No 1mg HCl 50 mg 9-18 tablet 00:00: 00 paroxetine 2020-0 No 1mg 40 mg 9-18 tablet 00:00: 00 risperidone 2020-0 No 1mg 1 mg tablet 9-18 00:00: 00 hydroxyzine 2020-0 No 1mg HCl 50 mg 9-18 tablet 00:00: 00 paroxetine 2020-0 No 1mg 40 mg 8-21 tablet 00:00: 00 risperidone 2020-0 No 1mg 1 mg tablet 8-21 00:00: 00 hydroxyzine 2020-0 No 1mg HCl 50 mg 8-21 tablet 00:00: 00 paroxetine 2020-0 No 1mg 40 mg 8-21 tablet 00:00: 00 risperidone 2020-0 No 1mg 1 mg tablet 8-21 00:00: 00 hydroxyzine 2020-0 No 1mg HCl 50 mg 8-21 tablet 00:00: 00 paroxetine 2020-0 No 1mg 40 mg 7-23 tablet 00:00: 00 amlodipine 2020-0 No 1mg 10 mg 7-23 tablet 00:00: 00 hydrochloro 2020-0 No 1mg thiazide 7-23 12.5 mg 00:00: tablet 00 lisinopril 2020-0 No 1mg 10 mg 7-23 tablet 00:00: 00 risperidone 2020-0 No 1mg 1 mg tablet 7- 00:00: 00 lamotrigine 2020-0 No 1mg 200 mg 7-23 tablet 00:00: 00 lamotrigine 2020-0 No 1mg 100 mg 7-23 tablet 00:00: 00 lamotrigine 2020-0 No 1mg 100 mg 7-23 tablet 00:00: 00 lamotrigine 2020-0 No 1mg 200 mg 7-23 tablet 00:00: 00 hydroxyzine 2020-0 No 1mg HCl 25 mg 7-23 tablet 00:00: 00 paroxetine 2020-0 No 1mg 40 mg 7-23 tablet 00:00: 00 amlodipine 2020-0 No 1mg 10 mg 7-23 tablet 00:00: 00 hydrochloro 2020-0 No 1mg thiazide 7-23 12.5 mg 00:00: tablet 00 lisinopril 2020-0 No 1mg 10 mg 7-23 tablet 00:00: 00 risperidone 2020-0 No 1mg 1 mg tablet 7- 00:00: 00 lamotrigine 2020-0 No 1mg 200 mg 7-23 tablet 00:00: 00 lamotrigine 2020-0 No 1mg 100 mg 7-23 tablet 00:00: 00 lamotrigine 2020-0 No 1mg 100 mg 7-23 tablet 00:00: 00 lamotrigine 2020-0 No 1mg 200 mg 7-23 tablet 00:00: 00 hydroxyzine 2020-0 No 1mg HCl 25 mg 7-23 tablet 00:00: 00 meloxicam 2020-0 Yes [id number] 7.5mg Take 1 [facility] 7.5 mg 7-10 9107 tablet by ity of tablet 00:00: mouth once [place] 00 daily as Medical needed for Branch Pain (scale 7-10). meloxicam 2020-0 Yes [id number] 7.5mg Take 1 [facility] 7.5 mg 7-10 9107 tablet by ity of tablet 00:00: mouth once [place] 00 daily as Medical needed for Branch Pain (scale 7-10). meloxicam 2020-0 Yes [id number] 7.5mg Take 1 [facility] 7.5 mg 7-10 9107 tablet by ity of tablet 00:00: mouth once [place] 00 daily as Medical needed for Branch Pain (scale 7-10). meloxicam 2020-0 Yes [id number] 7.5mg Take 1 [facility] 7.5 mg 7-10 9107 tablet by ity of tablet 00:00: mouth once [place] 00 daily as Medical needed for Branch Pain (scale 7-10). meloxicam 2020-0 Yes [id number] 7.5mg Take 1 [facility] 7.5 mg 7-10 9107 tablet by ity of tablet 00:00: mouth once [place] 00 daily as Medical needed for Branch Pain (scale 7-10). meloxicam 2020-0 Yes [id number] 7.5mg Take 1 [facility] 7.5 mg 7-10 9107 tablet by ity of tablet 00:00: mouth once [place] 00 daily as Medical needed for Branch Pain (scale 7-10). meloxicam 2020-0 Yes [id number] 7.5mg Take 1 [facility] 7.5 mg 7-10 9107 tablet by ity of tablet 00:00: mouth once [place] 00 daily as Medical needed for Branch Pain (scale 7-10). meloxicam 2020-0 Yes [id number] 7.5mg Take 1 [facility] 7.5 mg 7-10 9107 tablet by ity of tablet 00:00: mouth once [place] 00 daily as Medical needed for Branch Pain (scale 7-10). meloxicam 2020-0 Yes [id number] 7.5mg Take 1 [facility] 7.5 mg 7-10 9107 tablet by ity of tablet 00:00: mouth once [place] 00 daily as Medical needed for Branch Pain (scale 7-10). meloxicam 2020-0 Yes [id number] 7.5mg Take 1 [facility] 7.5 mg 7-10 9107 tablet by ity of tablet 00:00: mouth once [place] 00 daily as Medical needed for Branch Pain (scale 7-10). meloxicam 2020-0 Yes [id number] 7.5mg Take 1 [facility] 7.5 mg 7-10 9107 tablet by ity of tablet 00:00: mouth once [place] 00 daily as Medical needed for Branch Pain (scale 7-10). meloxicam 2020-0 Yes [id number] 7.5mg Take 1 [facility] 7.5 mg 7-10 9107 tablet by ity of tablet 00:00: mouth once [place] 00 daily as Medical needed for Branch Pain (scale 7-10). meloxicam 2020-0 Yes [id number] 7.5mg Take 1 [facility] 7.5 mg 7-10 9107 tablet by ity of tablet 00:00: mouth once [place] 00 daily as Medical needed for Branch Pain (scale 7-10). meloxicam 2020-0 Yes [id number] 7.5mg Take 1 [facility] 7.5 mg 7-10 9107 tablet by ity of tablet 00:00: mouth once [place] 00 daily as Medical needed for Branch Pain (scale 7-10). meloxicam 2020-0 Yes [id number] 7.5mg Take 1 [facility] 7.5 mg 7-10 9107 tablet by ity of tablet 00:00: mouth once [place] 00 daily as Medical needed for Branch Pain (scale 7-10). meloxicam 2020-0 Yes [id number] 7.5mg Take 1 [facility] 7.5 mg 7-10 9107 tablet by ity of tablet 00:00: mouth once [place] 00 daily as Medical needed for Branch Pain (scale 7-10). potassium 2020-0 No 1mEq chloride ER 7-08 10 mEq 00:00: tablet,exte 00 nded release magnesium 2020-0 No 1x 1/3" oxide 400 7-08 mg (241.3 00:00: mg 00 magnesium) tablet potassium 2020-0 No 1mEq chloride ER 7-08 10 mEq 00:00: tablet,exte 00 nded release magnesium 2020-0 No 1x 1/3" oxide 400 7-08 mg (241.3 00:00: mg 00 magnesium) tablet cyclobenzap 2020-0 No 1mg rine 5 mg 6-25 tablet 00:00: 00 levothyroxi 2020-0 No 1mcg ne 137 mcg 6-25 tablet 00:00: 00 cyclobenzap 2020-0 No 1mg rine 5 mg 6-25 tablet 00:00: 00 levothyroxi 2020-0 No 1mcg ne 137 mcg 6-25 tablet 00:00: 00 paroxetine 2020-0 No 1mg 40 mg 6-24 tablet 00:00: 00 risperidone 2020-0 No 1mg 1 mg tablet 6 00:00: 00 hydroxyzine 2020-0 No 1mg HCl 25 mg 6-24 tablet 00:00: 00 paroxetine 2020-0 No 1mg 40 mg 6-24 tablet 00:00: 00 risperidone 2020-0 No 1mg 1 mg tablet 09-02 00:00: 00 hydroxyzine 2020-0 No 1mg HCl 25 mg 6-24 tablet 00:00: 00 potassium 2020-0 No 1mEq chloride ER 6-23 10 mEq 00:00: tablet,exte 00 nded release magnesium 2020-0 No 1x 1/3" oxide 400 6-23 mg (241.3 00:00: mg 00 magnesium) tablet potassium 2020-0 No 1mEq chloride ER 6-23 10 mEq 00:00: tablet,exte 00 nded release magnesium 2020-0 No 1x 1/3" oxide 400 6-23 mg (241.3 00:00: mg 00 magnesium) tablet risperidone 2020-0 No 1mg 1 mg tablet 08-18 00:00: 00 risperidone 2020-0 No 1mg 1 mg tablet 08-18 00:00: 00 risperidone 2020-0 No 1mg 1 mg tablet 08-10 00:00: 00 risperidone 2020-0 No 1mg 1 mg tablet 08-10 00:00: 00 paroxetine 2020-0 No 1mg 40 mg 5-26 tablet 00:00: 00 Rexulti 1 2020-0 No 1mg mg tablet 08-04 00:00: 00 paroxetine 2020-0 No 1mg 40 mg 5-26 tablet 00:00: 00 Rexulti 1 2020-0 No 1mg mg tablet 08-04 00:00: 00 methocarbam 2020-0 No 1mg ol 750 mg 5-20 tablet 00:00: 00 prednisone 2020-0 No 1mg 20 mg 5-20 tablet 00:00: 00 diclofenac 2020-0 No 1mg sodium 75 5-20 mg 00:00: tablet,declan 00 yed release methocarbam 2020-0 No 1mg ol 750 mg 5-20 tablet 00:00: 00 prednisone 2020-0 No 1mg 20 mg 5-20 tablet 00:00: 00 diclofenac 2020-0 No 1mg sodium 75 5-20 mg 00:00: tablet,declan 00 yed release paroxetine 2020-0 No 1mg 40 mg 5-07 tablet 00:00: 00 bupropion 2020-0 No 1mg HCl 75 mg 5-07 tablet 00:00: 00 paroxetine 2020-0 No 1mg 40 mg 5-07 tablet 00:00: 00 bupropion 2020-0 No 1mg HCl 75 mg 5-07 tablet 00:00: 00 azithromyci 2020-0 No mg n 250 mg 3-19 tablet 00:00: 00 ondansetron 2020-0 No 1mg 4 mg 3-19 disintegrat 00:00: ing tablet 00 benzonatate 2020-0 No 1mg 200 mg 3-19 capsule 00:00: 00 Bromfed DM 2020-0 No 5mg/5 2 mg-30 3-19 mL mg-10 mg/5 00:00: mL oral 00 syrup azithromyci 2020-0 No mg n 250 mg 3-19 tablet 00:00: 00 ondansetron 2020-0 No 1mg 4 mg 3-19 disintegrat 00:00: ing tablet 00 benzonatate 2020-0 No 1mg 200 mg 3-19 capsule 00:00: 00 Bromfed DM 2020-0 No 5mg/5 2 mg-30 3-19 mL mg-10 mg/5 00:00: mL oral 00 syrup diclofenac 2020-0 No 1% 1 % topical 1-28 gel 00:00: 00 cyclobenzap 2020-0 No 1mg rine 5 mg 1-28 tablet 00:00: 00 ibuprofen 2020-0 No 1mg 800 mg 1-28 tablet 00:00: 00 diclofenac 2020-0 No 1% 1 % topical 1-28 gel 00:00: 00 cyclobenzap 2020-0 No 1mg rine 5 mg 1-28 tablet 00:00: 00 ibuprofen 2020-0 No 1mg 800 mg 1-28 tablet 00:00: 00 famotidine 2020-0 No 1mg 20 mg 1-12 tablet 00:00: 00 lamotrigine 2020-0 No 1mg 200 mg 1-12 tablet 00:00: 00 lamotrigine 2020-0 No 1mg 100 mg 1-12 tablet 00:00: 00 bupropion 2020-0 No 1mg HCl 75 mg 1-12 tablet 00:00: 00 Keppra 500 2020-0 No 1mg mg tablet 1-12 00:00: 00 levothyroxi 2020-0 No 1mcg ne 125 mcg 1-12 tablet 00:00: 00 famotidine 2020-0 No 1mg 20 mg 1-12 tablet 00:00: 00 amlodipine 2020-0 No 1mg 10 mg 1-12 tablet 00:00: 00 hydrochloro 2020-0 No 1mg thiazide 1-12 12.5 mg 00:00: tablet 00 lisinopril 2020-0 No 1mg 10 mg 1-12 tablet 00:00: 00 famotidine 2020-0 No 1mg 20 mg 1-12 tablet 00:00: 00 lamotrigine 2020-0 No 1mg 200 mg 1-12 tablet 00:00: 00 lamotrigine 2020-0 No 1mg 100 mg 1-12 tablet 00:00: 00 bupropion 2020-0 No 1mg HCl 75 mg 1-12 tablet 00:00: 00 Keppra 500 2020-0 No 1mg mg tablet 1-12 00:00: 00 levothyroxi 2020-0 No 1mcg ne 125 mcg 1-12 tablet 00:00: 00 famotidine 2020-0 No 1mg 20 mg 1-12 tablet 00:00: 00 amlodipine 2020-0 No 1mg 10 mg 1-12 tablet 00:00: 00 hydrochloro 2020-0 No 1mg thiazide 1-12 12.5 mg 00:00: tablet 00 lisinopril 2020-0 No 1mg 10 mg 1-12 tablet 00:00: 00 citalopram 2019-1 No 1mg 10 mg 1-11 tablet 00:00: 00 paroxetine 2019-1 No 1mg 40 mg 1-11 tablet 00:00: 00 citalopram 2018-1 No 1mg 10 mg 1-11 tablet 00:00: 00 paroxetine 2018-1 No 1mg 40 mg 1-11 tablet 00:00: 00 lisinopril 2019-1 No 1mg 10 mg 0-26 tablet 00:00: 00 hydrochloro 2018-1 No 1mg thiazide 0-26 12.5 mg 00:00: tablet 00 amlodipine 2018-1 No 1mg 10 mg 0-26 tablet 00:00: 00 famotidine 2018-1 No 1mg 20 mg 0-26 tablet 00:00: 00 paroxetine 2018-1 No 1mg 40 mg 0-26 tablet 00:00: 00 citalopram 2018-1 No 1mg 10 mg 0-26 tablet 00:00: 00 bupropion 2018-1 No 1mg HCl 75 mg 0-26 tablet 00:00: 00 lamotrigine 2018-1 No 1mg 100 mg 0-26 tablet 00:00: 00 lamotrigine 2018-1 No 1mg 200 mg 0-26 tablet 00:00: 00 Keppra 500 2018-1 No 1mg mg tablet 0-26 00:00: 00 levothyroxi 2018-1 No 1mcg ne 137 mcg 0-26 tablet 00:00: 00 lisinopril 2018-1 No 1mg 10 mg 0-26 tablet 00:00: 00 hydrochloro 2018-1 No 1mg thiazide 0-26 12.5 mg 00:00: tablet 00 amlodipine 2018-1 No 1mg 10 mg 0-26 tablet 00:00: 00 famotidine 2018- No 1mg 20 mg 0-26 tablet 00:00: 00 paroxetine 2018-1 No 1mg 40 mg 0-26 tablet 00:00: 00 citalopram 2018-1 No 1mg 10 mg 0-26 tablet 00:00: 00 bupropion 2018-1 No 1mg HCl 75 mg 0-26 tablet 00:00: 00 lamotrigine 2018-1 No 1mg 100 mg 0-26 tablet 00:00: 00 lamotrigine 2018-1 No 1mg 200 mg 0-26 tablet 00:00: 00 Keppra 500 2018-1 No 1mg mg tablet 0-26 00:00: 00 levothyroxi 2018-1 No 1mcg ne 137 mcg 0-26 tablet 00:00: 00 citalopram 2018-1 No 1mg 10 mg 0-23 tablet 00:00: 00 paroxetine 2018-1 No 1mg 40 mg 0-23 tablet 00:00: 00 famotidine 2019-1 No 1mg 20 mg 0-23 tablet 00:00: 00 amlodipine 2018-03 No 1mg 10 mg 0-23 tablet 00:00: 00 lisinopril 2018-03 No 1mg 10 mg 0-23 tablet 00:00: 00 hydrochloro 2018-03 No 1mg thiazide 0-23 12.5 mg 00:00: tablet 00 lamotrigine 2018-03 No 1mg 200 mg 0-23 tablet 00:00: 00 lamotrigine 2018-03 No 1mg 100 mg 0-23 tablet 00:00: 00 bupropion 2018-03 No 1mg HCl 75 mg 0-23 tablet 00:00: 00 levothyroxi 2018-03 No 1mcg ne 137 mcg 0-23 tablet 00:00: 00 citalopram 2018-03 No 1mg 10 mg 0-23 tablet 00:00: 00 paroxetine 2018-03 No 1mg 40 mg 0-23 tablet 00:00: 00 famotidine 2018-03 No 1mg 20 mg 0-23 tablet 00:00: 00 amlodipine 2018-03 No 1mg 10 mg 0-23 tablet 00:00: 00 lisinopril 2018-03 No 1mg 10 mg 0-23 tablet 00:00: 00 hydrochloro 2018-03 No 1mg thiazide 0-23 12.5 mg 00:00: tablet 00 lamotrigine 2018-03 No 1mg 200 mg 0-23 tablet 00:00: 00 lamotrigine 2018-03 No 1mg 100 mg 0-23 tablet 00:00: 00 bupropion 2018-03 No 1mg HCl 75 mg 0-23 tablet 00:00: 00 levothyroxi 2018-03 No 1mcg ne 137 mcg 0-23 tablet 00:00: 00 citalopram 2018-03 Yes 10 mg = 1 Me moria 10 mg oral 0-18 tab, PO, l tablet 20:41: Daily, # [place] 00 30 tab, 0 Refill(s) citalopram 2018-03 Yes 10 mg = 1 Me moria 10 mg oral 0-18 tab, PO, l tablet 20:41: Daily, # [place] 00 30 tab, 0 Refill(s) primidone 2018-03 Yes 50 mg = 1 Mem oria 50 mg oral 0-18 tab, PO, l tablet 20:06: Bedtime, # [place] nn 00 30 tab, 4 Refill(s), Pharmacy: [facility] [place] primidone 2019-1 Yes 50 mg = 1 Mem oria 50 mg oral 0-18 tab, PO, l tablet 20:06: Bedtime, Jamaal Douglass nn 00 30 tab, 4 Refill(s), Pharmacy: [facility] [address] [place], [place] paroxetine 2019-0 No 1mg 40 mg 9-24 tablet 00:00: 00 amlodipine 2019-0 No 1mg 10 mg 9-24 tablet 00:00: 00 citalopram 2019-0 No 1mg 10 mg 9-24 tablet 00:00: 00 famotidine 2019-0 No 1mg 20 mg 9-24 tablet 00:00: 00 bupropion 2019-0 No 1mg HCl 75 mg 9-24 tablet 00:00: 00 levothyroxi 2019-0 No 1mcg ne 137 mcg 9-24 tablet 00:00: 00 paroxetine 2019-0 No 1mg 40 mg 9-24 tablet 00:00: 00 amlodipine 2019-0 No 1mg 10 mg 9-24 tablet 00:00: 00 citalopram 2019-0 No 1mg 10 mg 9-24 tablet 00:00: 00 famotidine 2019-0 No 1mg 20 mg 9-24 tablet 00:00: 00 bupropion 2019-0 No 1mg HCl 75 mg 9-24 tablet 00:00: 00 levothyroxi 2019-0 No 1mcg ne 137 mcg 9-24 tablet 00:00: 00 ondansetron 2019-0 No 1mg HCl 4 mg 9-11 tablet 00:00: 00 ondansetron 2019-0 No 1mg HCl 4 mg 9-11 tablet 00:00: 00 Paxil 30 mg 2019-0 No 1mg tablet 11-05 00:00: 00 Wellbutrin 2019-0 No 1mg XL 150 mg 8 24 hr 00:00: tablet, 00 extended release Paxil 30 mg 2019-0 No 1mg tablet 11-05 00:00: 00 Abilify 2 2019-0 No 1mg mg tablet 11-05 00:00: 00 Wellbutrin 2019-0 No 1mg XL 150 mg 11-05 24 hr 00:00: tablet, 00 extended release Abilify 2 2019-0 No 1mg mg tablet 11-05 00:00: 00 lisinopril 2019-0 No 1mg 20 mg 8-21 tablet 00:00: 00 lisinopril 2019-0 No 1mg 20 mg 8-21 tablet 00:00: 00 lamotrigine 2019-0 No 1mg 100 mg 8-14 tablet 00:00: 00 lamotrigine 2019-0 No 1mg 200 mg 8-14 tablet 00:00: 00 lamotrigine 2019-0 No 1mg 100 mg 8-14 tablet 00:00: 00 lamotrigine 2019-0 No 1mg 100 mg 8-14 tablet 00:00: 00 lamotrigine 2019-0 No 1mg 200 mg 8-14 tablet 00:00: 00 lamotrigine 2019-0 No 1mg 100 mg 8-14 tablet 00:00: 00 prednisone 2019-0 No 1mg 20 mg 7-20 tablet 00:00: 00 doxycycline 2019-0 No 1mg hyclate 100 7-20 mg tablet 00:00: 00 prednisone 2019-0 No 1mg 20 mg 7-20 tablet 00:00: 00 doxycycline 2019-0 No 1mg hyclate 100 7-20 mg tablet 00:00: 00 Paxil 40 mg 2019-0 No 1mg tablet 7-16 00:00: 00 Paxil 10 mg 2019-0 No 1mg tablet 7-16 00:00: 00 Wellbutrin 2019-0 No 1mg XL 150 mg 7-16 24 hr 00:00: tablet, 00 extended release Paxil 40 mg 2019-0 No 1mg tablet 7-16 00:00: 00 Paxil 10 mg 2019-0 No 1mg tablet 7-16 00:00: 00 Wellbutrin 2019-0 No 1mg XL 150 mg 7-16 24 hr 00:00: tablet, 00 extended release lisinopril 2019-0 No 1mg 20 7-09 mg-hydrochl 00:00: orothiazide 00 12.5 mg tablet amlodipine 2019-0 No 1mg 10 mg 7-09 tablet 00:00: 00 Synthroid 2019-0 No 1mcg 150 mcg 7-09 tablet 00:00: 00 lisinopril 2019-0 No 1mg 20 7-09 mg-hydrochl 00:00: orothiazide 00 12.5 mg tablet amlodipine 2019-0 No 1mg 10 mg 7-09 tablet 00:00: 00 Synthroid 2019-0 No 1mcg 150 mcg 09-17 tablet 00:00: 00 Paxil 40 mg 2019-0 No 1mg tablet 09-10 00:00: 00 Paxil 10 mg 2019-0 No 1mg tablet 09-10 00:00: 00 Wellbutrin 2019-0 No 1mg XL 150 mg 09-10 24 hr 00:00: tablet, 00 extended release Paxil 40 mg 2019-0 No 1mg tablet 09-10 00:00: 00 Paxil 10 mg 2019-0 No 1mg tablet 09-10 00:00: 00 Wellbutrin 2019-0 No 1mg XL 150 mg 09-10 24 hr 00:00: tablet, 00 extended release cyclobenzap 2019-0 No 1mg rine 10 mg 6-18 tablet 00:00: 00 indomethaci 2019-0 No 1mg n 50 mg 6-18 capsule 00:00: 00 cyclobenzap 2019-0 No 1mg rine 10 mg 6-18 tablet 00:00: 00 indomethaci 2019-0 No 1mg n 50 mg 6-18 capsule 00:00: 00 PARoxetine 0 Yes 40 mg = 1 Me moria 40 mg oral 5-17 tab, PO, l tablet 17:11: Daily, # [place] 00 30 tab, 0 Refill(s) Famotidine Yes 20 mg = 1 Me moria 20 MG Oral 5-17 tab, PO, l Tablet 17:11: Daily, 0 [place] 00 Refill(s) 24 HR Yes 100 mg = 1 Mem[facility] a lamotrigine 5-17 tab, PO, l 100 MG 17:11: Daily, # [place] Extended 00 30 tab, 0 Release Refill(s) Enteric Coated Tablet [Lamictal] PARoxetine Yes 40 mg = 1 Me moria 40 mg oral 5-17 tab, PO, l tablet 17:11: Daily, # [place] 00 30 tab, 0 Refill(s) Famotidine 0 Yes 20 mg = 1 Me moria 20 MG Oral 5-17 tab, PO, l Tablet 17:11: Daily, 0 [place] 00 Refill(s) 24 HR 0 Yes 100 mg = 1 Mem[facility] a lamotrigine 5-17 tab, PO, l 100 MG 17:11: Daily, # [place] Extended 00 30 tab, 0 Release Refill(s) Enteric Coated Tablet [Lamictal] amLODIPine 2019- Yes 5 mg = 1 Mem oria 5 mg oral 5-17 tab, PO, l tablet 16:28: Daily, # [place] 00 90 tab, 0 Refill(s) Levetiracet 2018-0 Yes See Memori a am 500 MG 5-17 Instructio l Oral Tablet 16:28: ns, 1 tab H ermann 00 PO QAM, 2 tabs PO QPM, 0 Refill(s) levothyroxi 2019-0 Yes 150 [facility] a ne 150 mcg 5-17 microgram l (0.15 mg) 16:28: = 1 tab, Herm clarice oral tablet 00 PO, Daily, # 30 tab, 0 Refill(s) 24 HR Yes 150 mg = 1 [facility] a Bupropion 5-17 tab, PO, l Hydrochlori 16:28: Q24H, # 30 [place] de 150 MG 00 tab, 0 Extended Refill(s) Release Tablet lamotrigine Yes 200 mg = 1 [facility] 200 MG Oral 5-17 tab, PO, l Tablet 16:28: BID, # 180 Evonne nn 00 tab, 0 Refill(s) amLODIPine Yes 5 mg = 1 Mem oria 5 mg oral 5-17 tab, PO, l tablet 16:28: Daily, # [place] 00 90 tab, 0 Refill(s) Levetiracet 2018-0 Yes See Memori a am 500 MG 5-17 Instructio l Oral Tablet 16:28: ns, 1 tab H ermann 00 PO QAM, 2 tabs PO QPM, 0 Refill(s) levothyroxi 2018-0 Yes 150 Memori a ne 150 mcg 5-17 microgram l (0.15 mg) 16:28: = 1 tab, Herm clarice oral tablet 00 PO, Daily, # 30 tab, 0 Refill(s) 24 HR 20190 Yes 150 mg = 1 Memori a Bupropion 5-17 tab, PO, l Hydrochlori 16:28: Q24H, # 30 [place] de 150 MG 00 tab, 0 Extended Refill(s) Release Tablet lamotrigine 2018- Yes 200 mg = 1 [facility] 200 MG Oral 5-17 tab, PO, l Tablet 16:28: BID, # 180 Evonne nn 00 tab, 0 Refill(s) famotidine 2019-0 No 1mg 20 mg 4-16 tablet 00:00: 00 Wellbutrin 2019-0 No 1mg XL 150 mg 4-16 24 hr 00:00: tablet, 00 extended release Paxil 40 mg 2019-0 No 1mg tablet 4-16 00:00: 00 Paxil 10 mg 2019-0 No 1mg tablet 4-16 00:00: 00 hydroxyzine 2019-0 No 1mg HCl 25 mg 4-16 tablet 00:00: 00 famotidine 2019-0 No 1mg 20 mg 4-16 tablet 00:00: 00 Wellbutrin 2018-0 No 1mg XL 150 mg 4-16 24 hr 00:00: tablet, 00 extended release Paxil 40 mg 2019-0 No 1mg tablet 4-16 00:00: 00 Paxil 10 mg 2019-0 No 1mg tablet 4-16 00:00: 00 hydroxyzine 2018-0 No 1mg HCl 25 mg 4-16 tablet 00:00: 00 Wellbutrin 2017- No 1mg XL 150 mg 2-27 24 hr 00:00: tablet, 00 extended release lisinopril 2017-03 No 1mg 20 2-27 mg-hydrochl 00:00: orothiazide 00 12.5 mg tablet Paxil 40 mg 2017-03 No 1mg tablet 2-27 00:00: 00 Wellbutrin 2017- No 1mg XL 150 mg 2-27 24 hr 00:00: tablet, 00 extended release lisinopril 2017-03 No 1mg 20 2-27 mg-hydrochl 00:00: orothiazide 00 12.5 mg tablet Paxil 40 mg 2017-03 No 1mg tablet 2-27 00:00: 00 amlodipine 2017-1 No 1mg 5 mg tablet 2-27 00:00: 00 Pepcid 20 2017-1 No 1mg mg tablet 2-27 00:00: 00 Pepcid 20 2017-1 No 1mg mg tablet 2-27 00:00: 00 amoxicillin 2018-1 No 1mg 875 mg 2-27 tablet 00:00: 00 Synthroid 2017- No 1mcg 150 mcg 2-27 tablet 00:00: 00 Synthroid 2017- No 1mcg 150 mcg 2-27 tablet 00:00: 00 Wellbutrin 2017- No 1mg XL 150 mg 2-27 24 hr 00:00: tablet, 00 extended release lisinopril 2018-1 No 1mg 20 2-27 mg-hydrochl 00:00: orothiazide 00 12.5 mg tablet Paxil 40 mg 2018-1 No 1mg tablet 2- 00:00: 00 Wellbutrin 2017-1 No 1mg XL 150 mg 2-27 24 hr 00:00: tablet, 00 extended release lisinopril 2018-1 No 1mg 20 2-27 mg-hydrochl 00:00: orothiazide 00 12.5 mg tablet Paxil 40 mg 2017-1 No 1mg tablet 2 00:00: 00 amlodipine 2017-1 No 1mg 5 mg tablet 2 00:00: 00 Pepcid 20 2017-1 No 1mg mg tablet 2 00:00: 00 Pepcid 20 2017-1 No 1mg mg tablet 2 00:00: 00 amoxicillin 2018-1 No 1mg 875 mg 2- tablet 00:00: 00 Synthroid 2018-1 No 1mcg 150 mcg 2-27 tablet 00:00: 00 Synthroid 2018-1 No 1mcg 150 mcg 2-27 tablet 00:00: 00 Paxil 40 mg 2018-0 No 1mg tablet 9 00:00: 00 lisinopril 2018-0 No 1mg 20 9-13 mg-hydrochl 00:00: orothiazide 00 12.5 mg tablet Wellbutrin 2018-0 No 1mg XL 150 mg 9-13 24 hr 00:00: tablet, 00 extended release lisinopril 2018-0 No 1mg 20 9-13 mg-hydrochl 00:00: orothiazide 00 12.5 mg tablet Synthroid 2018-0 No 1mcg 150 mcg 9-13 tablet 00:00: 00 Paxil 40 mg 2018-0 No 1mg tablet 9- 00:00: 00 lisinopril 2018-0 No 1mg 20 9-13 mg-hydrochl 00:00: orothiazide 00 12.5 mg tablet Wellbutrin 2018-0 No 1mg XL 150 mg 9-13 24 hr 00:00: tablet, 00 extended release lisinopril 2018-0 No 1mg 20 9-13 mg-hydrochl 00:00: orothiazide 00 12.5 mg tablet Synthroid 2018-0 No 1mcg 150 mcg 9-13 tablet 00:00: 00 Wellbutrin 2018-0 No 1mg XL 150 mg 5-31 24 hr 00:00: tablet, 00 extended release lisinopril 2018-0 No 15mg 20 5-31 mg-hydrochl 00:00: orothiazide 00 12.5 mg tablet Paxil 40 mg 2018-0 No 1mg tablet 5-31 00:00: 00 lisinopril 2018-0 No 1mg 20 5-31 mg-hydrochl 00:00: orothiazide 00 12.5 mg tablet Pepcid 20 2018-0 No 1mg mg tablet 5- 00:00: 00 Synthroid 2018-0 No 1mcg 150 mcg 5-31 tablet 00:00: 00 Wellbutrin 2018-0 No 1mg XL 150 mg 5-31 24 hr 00:00: tablet, 00 extended release lisinopril 2018-0 No 15mg 20 5-31 mg-hydrochl 00:00: orothiazide 00 12.5 mg tablet Paxil 40 mg 2018-0 No 1mg tablet 5- 00:00: 00 lisinopril 2018-0 No 1mg 20 5-31 mg-hydrochl 00:00: orothiazide 00 12.5 mg tablet Pepcid 20 2017-0 No 1mg mg tablet 5 00:00: 00 Synthroid 2018-0 No 1mcg 150 mcg 5-31 tablet 00:00: 00 Wellbutrin 2018-0 No 1mg XL 150 mg 5-17 24 hr 00:00: tablet, 00 extended release Wellbutrin 2018-0 No 1mg XL 150 mg 5-17 24 hr 00:00: tablet, 00 extended release Wellbutrin 2018-0 No 1mg XL 150 mg 5-17 24 hr 00:00: tablet, 00 extended release Wellbutrin 2018-0 No 1mg XL 150 mg 5-17 24 hr 00:00: tablet, 00 extended release Lamictal 2018-0 No 1mg 200 mg 5-07 tablet 00:00: 00 Lamictal 2018-0 No 1mg 200 mg 5-07 tablet 00:00: 00 lisinopril 2018-0 No 15mg 20 4-20 mg-hydrochl 00:00: orothiazide 00 12.5 mg tablet Paxil 40 mg 2018-0 No 1mg tablet 4-20 00:00: 00 Pepcid 20 2018-0 No 1mg mg tablet 4-20 00:00: 00 Synthroid 2018-0 No 1mcg 150 mcg 4-20 tablet 00:00: 00 Synthroid 2018-0 No 1mcg 150 mcg 4-20 tablet 00:00: 00 Paxil 40 mg 2018-0 No 1mg tablet 4-20 00:00: 00 Wellbutrin 2018-0 No 1mg XL 150 mg 4-20 24 hr 00:00: tablet, 00 extended release lisinopril 2018-0 No 15mg 20 4-20 mg-hydrochl 00:00: orothiazide 00 12.5 mg tablet lisinopril 2018-0 No 15mg 20 4-20 mg-hydrochl 00:00: orothiazide 00 12.5 mg tablet Paxil 40 mg 2018-0 No 1mg tablet 4-20 00:00: 00 Pepcid 20 2018-0 No 1mg mg tablet 4-20 00:00: 00 Synthroid 2018-0 No 1mcg 150 mcg 4-20 tablet 00:00: 00 Synthroid 2018-0 No 1mcg 150 mcg 4-20 tablet 00:00: 00 Paxil 40 mg 2018-0 No 1mg tablet 4-20 00:00: 00 Wellbutrin 2018-0 No 1mg XL 150 mg 4-20 24 hr 00:00: tablet, 00 extended release lisinopril 2018-0 No 15mg 20 4-20 mg-hydrochl 00:00: orothiazide 00 12.5 mg tablet lisinopril 2018-0 No 15mg 20 1-16 mg-hydrochl 00:00: orothiazide 00 12.5 mg tablet lisinopril 2018-0 No 15mg 20 1-16 mg-hydrochl 00:00: orothiazide 00 12.5 mg tablet Immunizations Ordered Filled Immunization Date Status Comments Formerly [facility] e Immunization Name Name SARS-COV-2 COVID-19 2021-03-11 Completed Unive rsity of MODERNA VACCINE 00:00:00 [facility] Moderna COVID-19 2020-05-22 Completed Vaccine 00:00:00 Moderna COVID-19 2020-05-22 Completed Vaccine 00:00:00 SARS-COV-2 COVID-19 2020-05-17 Completed Unive rsity of MODERNA VACCINE 00[facility]00:00 [facility] SARS-COV-2 COVID-19 2020-05-17 Completed Unive rsity of MODERNA VACCINE 00:00:00 [facility] SARS-COV-2 COVID-19 2020-05-17 Completed Unive rsity of MODERNA VACCINE 00:00:00 [facility] SARS-COV-2 COVID-19 2020-04-23 Completed Unive rsity of MODERNA VACCINE 00:00:00 [facility] SARS-COV-2 COVID-19 2020-04-23 Completed Unive rsity of MODERNA VACCINE 00:00:00 [facility] SARS-COV-2 COVID-19 2020-04-23 Completed Unive rsity of MODERNA VACCINE 00:00:00 [facility] Moderna COVID-19 2020-04-16 Completed Vaccine 00:00:00 Moderna COVID-19 2020-04-16 Completed Vaccine 00:00:00 pneumococcal 2019-10-15 Completed polysacchar 00:00:00 pneumococcal 2019-10-15 Completed polysacchar 00:00:00 Influenza, 2019-01-01 Completed seasonal, inj 00:00:00 Influenza, 2019-01-01 Completed seasonal, inj 00:00:00 Vital Signs Vital Name Observation Time Observation Value Comments Source Systolic blood 2020-05-11 17:27:00 108 mm[Hg] Univer sity of pressure [facility] Diastolic blood 2020-05-11 17:27:00 77 mm[Hg] Unive rsity of pressure [facility] Heart rate 2020-05-11 17:27:00 80 /min [facility] Body temperature 2019-09-19 18:09:[facility] 2019-09-19 18:09:00 86.183 kg [facility] BP Systolic 2021-08-17 15:13:00 BP Diastolic 2021-08-17 15:13:00 Weight Measured 2021-08-17 15:13:00 175.00 pounds Height Measured 2021-08-17 15:13:00 63.00 inches Body Temperature 2021-08-17 15:13:00 Heart Rate 2021-08-17 15:13:00 Respiratory Rate 2021-08-17 15:13:00 BP Systolic 2021-08-06 13:52:00 122 mm[Hg] BP Diastolic 2021-08-06 13:52:00 80 mm[Hg] Weight Measured 2021-08-06 13:52:00 175.00 pounds Height Measured 2021-08-06 13:52:00 63.00 inches Body Temperature 2021-08-06 13:52:00 98.40 degrees Heart Rate 2021-08-06 13:52:00 76.00 /min Respiratory Rate 2021-08-06 13:52:00 BP Systolic 2021-04-20 16:08:00 116 mm[Hg] BP Diastolic 2021-04-20 16:08:00 79 mm[Hg] Weight Measured 2021-04-20 16:08:00 194.20 pounds Height Measured 2021-04-20 16:08:00 63.00 inches Body Temperature 2021-04-20 16:08:00 98.30 degrees Heart Rate 2021-04-20 16:08:00 91.00 /min Respiratory Rate 2021-04-20 16:08:00 Systolic (mm Hg) 2021-01-27 15:19:00 Jose Daniel rial [place] Diastolic (mm Hg) 2021-01-27 15:19:00 Mem [facility] [place] Heart Rate 2021-01-27 15:19:00 [facility] [place] Respitory Rate 2021-01-27 15:19:00 Memori al [place] Height 2021-01-27 15:19:00 157.48 cm [facility] [place] Weight 2021-01-27 15:19:00 [facility] [place] BMI Calculated 2021-01-27 15:19:00 Memori [facility] [place] Systolic (mm Hg) 2020-12-16 15:25:00 Jose Daniel rial [place] Diastolic (mm Hg) 2020-12-16 15:25:00 Mem orial [place] Heart Rate 2020-12-16 15:25:00 [facility] [place] Respitory Rate 2020-12-16 15:25:00 Memori al [place] Height 2020-12-16 15:25:00 160.02 cm [facility] [place] Weight 2020-12-16 15:25:00 [facility] [place] BMI Calculated 2020-12-16 15:25:00 Memori al [place] BP Systolic 2020-10-26 13:29:00 136 mm[Hg] BP Diastolic 2020-10-26 13:29:00 75 mm[Hg] Weight Measured 2020-10-26 13:29:00 220.00 pounds Height Measured 2020-10-26 13:29:00 63.00 inches Body Temperature 2020-10-26 13:29:00 98.40 degrees Heart Rate 2020-10-26 13:29:00 64.00 /min Respiratory Rate 2020-10-26 13:29:00 16.00 /min BP Systolic 2020-08-31 13:15:00 143 mm[Hg] BP Diastolic 2020-08-31 13:15:00 88 mm[Hg] Weight Measured 2020-08-31 13:15:00 217.20 pounds Height Measured 2020-08-31 13:15:00 63.00 inches Body Temperature 2020-08-31 13:15:00 98.10 degrees Heart Rate 2020-08-31 13:15:00 57.00 /min Respiratory Rate 2020-08-31 13:15:00 16.00 /min BP Systolic 2020-08-11 15:27:00 96 mm[Hg] BP Diastolic 2020-08-11 15:27:00 66 mm[Hg] Weight Measured 2020-08-11 15:27:00 218.60 pounds Height Measured 2020-08-11 15:27:00 63.00 inches Body Temperature 2020-08-11 15:27:00 97.70 degrees Heart Rate 2020-08-11 15:27:00 83.00 /min Respiratory Rate 2020-08-11 15:27:00 BP Systolic 2020-07-26 13:47:00 BP Diastolic 2020-07-26 13:47:00 Weight Measured 2020-07-26 13:47:00 215.00 pounds Height Measured 2020-07-26 13:47:00 63.00 inches Body Temperature 2020-07-26 13:47:00 Heart Rate 2020-07-26 13:47:00 Respiratory Rate 2020-07-26 13:47:00 BP Systolic 2020-07-07 09:48:00 126 mm[Hg] BP Diastolic 2020-07-07 09:48:00 83 mm[Hg] Weight Measured 2020-07-07 09:48:00 215.80 pounds Height Measured 2020-07-07 09:48:00 63.02 inches Body Temperature 2020-07-07 09:48:00 98.30 degrees Heart Rate 2020-07-07 09:48:00 85.00 /min Respiratory Rate 2020-07-07 09:48:00 16.00 /min BP Systolic 2020-06-16 08:49:00 143 mm[Hg] BP Diastolic 2020-06-16 08:49:00 89 mm[Hg] Weight Measured 2020-06-16 08:49:00 221.20 pounds Height Measured 2020-06-16 08:49:00 63.02 inches Body Temperature 2020-06-16 08:49:00 98.20 degrees Heart Rate 2020-06-16 08:49:00 62.00 /min Respiratory Rate 2020-06-16 08:49:00 16.00 /min BP Systolic 2020-05-10 14:04:00 142 mm[Hg] BP Diastolic 2020-05-10 14:04:00 90 mm[Hg] Weight Measured 2020-05-10 14:04:00 228.60 pounds Height Measured 2020-05-10 14:04:00 63.02 inches Body Temperature 2020-05-10 14:04:00 98.30 degrees Heart Rate 2020-05-10 14:04:00 77.00 /min Respiratory Rate 2020-05-10 14:04:00 17.00 /min Systolic (mm Hg) 2018-12-27 19:37:00 Jose Daniel yamini [place] Diastolic (mm Hg) 2018-12-27 19:37:00 Mem orial [place] Heart Rate 2018-12-27 19:37:00 [facility] [place] Respitory Rate 2018-12-27 19:37:00 Funmilayoori al [place] Height 2018-12-27 19:37:00 160.02 cm [facility] [place] Weight 2018-12-27 19:37:00 [facility] [place] BMI Calculated 2018-12-27 19:37:00 Funmilayoori al [place] Weight 2018-07-26 16:21:00 [facility] [place] Height 2018-07-26 16:21:00 157.48 cm Christine Newman BMI Calculated 2018-07-26 16:21:00 Swati Stewart Heart Rate 2018-07-26 16:21:00 Christine Newman Respitory Rate 2018-07-26 16:21:00 Funmilayoolivia iniguez [place] Systolic (mm Hg) 2018-07-26 16:21:00 Jose Daniel kc [place] Diastolic (mm Hg) 2018-07-26 16:21:00 Mem orial [place] Procedures Procedure Date / Time Performing Clinician Source Performed REFERRAL- 2020-09-06 05:01:00 Doctor Unassigned, No [facility] REQUEST/RESPONSE Name [facility] EXTERNAL PROVIDER - ADC 2020-05-10 06:01:00 Doctor Unassigned, N o [facility] REFERRAL Name [facility] PATIENT QUESTIONNAIRE 2019-09-28 05:01:00 Doctor Unassigned, No [facility] XR SHOULDER 2+ VW LEFT 2019-09-19 18:04:00 [facility]ing [facility] Aneurysm clipping [facility] Evonne nn Plan of Care Planned Activity Planned Date Details Comments Source Goal Plan of Care Note [code = 55276-4] Goal Plan of Care Note [code = 59557-8] Goal Plan of Care Note [code = 65148-3] Goal Plan of Care Note [code = 40451-8] Goal Plan of Care Note [code = 90981-3] Goal Plan of Care Note [code = 04306-3] Goal Plan of Care Note [code = 23463-7] Goal Plan of Care Note [code = 49768-3] Goal Plan of Care Note [code = 52228-3] Goal Plan of Care Note [code = 90763-4] Goal Plan of Care Note [code = 85180-7] Goal Plan of Care Note [code = 90015-7] Goal Plan of Care Note [code = 94221-2] Goal Plan of Care Note [code = 80289-6] Goal Plan of Care Note [code = 54115-5] Goal Plan of Care Note [code = 67821-8] Goal Plan of Care Note [code = 91794-9] Goal Plan of Care Note [code = 33918-3] Goal Plan of Care Note [code = 72063-0] Goal Plan of Care Note [code = 62188-0] Goal Plan of Care Note [code = 16633-2] Goal Plan of Care Note [code = 50528-7] Goal Plan of Care Note [code = 27062-7] Goal Plan of Care Note [code = 83788-3] Goal Plan of Care Note [code = 60563-2] Goal Plan of Care Note [code = 74293-7] Goal Plan of Care Note [code = 89670-7] Goal Plan of Care Note [code = 25629-3] Goal Plan of Care Note [code = 52522-2] Goal Plan of Care Note [code = 43024-5] Goal Plan of Care Note [code = 26157-5] Goal Plan of Care Note [code = 05602-4] Goal Plan of Care Note [code = 71579-2] Goal Plan of Care Note [code = 06819-9] Goal Plan of Care Note [code = 34556-2] Goal Plan of Care Note [code = 57749-5] Goal Plan of Care Note [code = 22038-5] Goal Plan of Care Note [code = 65065-1] Goal Plan of Care Note [code = 53751-8] Goal Plan of Care Note [code = 64366-6] Goal Plan of Care Note [code = 71567-9] Goal Plan of Care Note [code = 22458-1] Goal Plan of Care Note [code = 47869-1] Goal Plan of Care Note [code = 50411-4] Goal Plan of Care Note [code = 50152-4] Goal Plan of Care Note [code = 36422-4] Goal Plan of Care Note [code = 24831-4] Goal Plan of Care Note [code = 17755-1] Goal Plan of Care Note [code = 17312-2] Goal Plan of Care Note [code = 94918-8] Goal Plan of Care Note [code = 27826-7] Goal Plan of Care Note [code = 16694-0] Goal Plan of Care Note [code = 10490-6] Goal Plan of Care Note [code = 51897-0] Goal Plan of Care Note [code = 18233-0] Goal Plan of Care Note [code = 07090-7] Goal Plan of Care Note [code = 53114-9] Goal Plan of Care Note [code = 96967-0] Goal Plan of Care Note [code = 63195-3] Goal Plan of Care Note [code = 14878-1] Goal Plan of Care Note [code = 71133-5] Goal Plan of Care Note [code = 60228-8] Goal Plan of Care Note [code = 35268-4] Goal Plan of Care Note [code = 91265-5] Goal Plan of Care Note [code = 67970-6] Goal Plan of Care Note [code = 18039-1] Goal Plan of Care Note [code = 49591-5] Goal Plan of Care Note [code = 71254-3] Goal Plan of Care Note [code = 68911-2] Goal Plan of Care Note [code = 78293-9] Goal Plan of Care Note [code = 84289-2] Goal Plan of Care Note [code = 27049-0] Goal Plan of Care Note [code = 81499-8] Goal Plan of Care Note [code = 00986-5] Goal Plan of Care Note [code = 42957-1] Goal Plan of Care Note [code = 66021-2] Goal Plan of Care Note [code = 12863-3] Goal Plan of Care Note [code = 25279-9] Goal Plan of Care Note [code = 20652-5] Goal Plan of Care Note [code = 90789-3] Goal Plan of Care Note [code = 48492-5] Goal Plan of Care Note [code = 07052-9] Goal Plan of Care Note [code = 14630-5] Goal Plan of Care Note [code = 20734-0] Goal Plan of Care Note [code = 02805-6] Goal Plan of Care Note [code = 34032-3] Goal Plan of Care Note [code = 55980-1] Goal Plan of Care Note [code = 88719-0] Goal Plan of Care Note [code = 43962-0] Goal Plan of Care Note [code = 88957-5] Encounters Start End Encounter Admission Attending Care Care Encounter Source Date/Time Date/Time Type Type Clinicians Facility Department ID 2021-11-18 2021-11-18 Outpatient [id number] 00:00:00 00:00:00 Visit [id number] 2021-10-11 2021-10-11 Outpatient [id number] 00:00:00 00:00:00 Visit [id number] 2021-09-28 2021-09-28 Ambulatory nullFlavo MNA [id number] [facility] 18:30:00 18:30:00 Pre-Reg r Neurology 11 l Lyndsey Quevedoann 2021-09-28 2021-09-28 Ambulatory nullFlavo MNA [id number] [facility] 18:30:00 18:30:00 Pre-Reg r Neurology 11 l [place] 2021-09-28 2021-09-28 Outpatient MHIE KALINA [id number] [facility] 13:30:00 13:30:00 11 jeison [place] 2021-09-28 2021-09-28 Outpatient DAVID MackaySCHDEAN [id number] 13:30:00 13:30:00 Markos 11 [place] 2021-07-28 2021-07-28 Case YINKA Mendoza [id number] [facility] 00:00:00 00:00:00 Management Ting YOUNG [id number] ity reagan G[place]JALVA[id number] [address] 2021-06-29 2021-06-30 Outpatient nullFlavo MNA [id number] [facility] 20:15:00 04:59:59 r Neurology 10 l [place] 2021-06-29 2021-06-30 Outpatient nullFlavo MNA [id number] [facility] 20:15:00 04:59:59 r Neurology 10 l Lyndsey Newman 2021-06-29 2021-06-29 Outpatient DAVID Mackay [id number] 15:15:00 23:59:59 Markos Ronak [place] 2021-06-29 2021-06-29 Outpatient MHIE MHARTI [id number] [facility] 15:15:00 15:15:00 10 jeison Newman 2021-05-24 2021-05-24 Outpatient R LILIA, [facility] [id number] Univers 14:40:00 14:40:00 DELORES [id number] [facility] 2021-04-28 2021-04-29 Outpatient nullFlavo MNA [id number] [facility] 16:00:00 05:59:59 r Neurology 08 l Lyndsey Newman 2021-04-28 2021-04-29 Outpatient nullFlavo MNA [id number] [facility] 16:00:00 05:59:59 r Neurology 08 l Lyndsey Newman 2021-04-28 2021-04-28 Outpatient RICCI MackaySCHER MHMISCHER [id number] 10:00:00 23:59:59 Markos 08 [place] 2021-04-28 2021-04-28 Outpatient MHIE MHIE [id number] Memoria 10:00:00 10:00:00 08 ejison Newman 2021-03-16 2021-03-16 Ambulatory nullFlavo MNA [id number] Memoria 17:45:00 17:45:00 Pre-Reg r Neurology 09 l Lyndsey Newman 2021-03-16 2021-03-16 Ambulatory nullFlavo MNA [id number] Memoria 17:45:00 17:45:00 Pre-Reg r Neurology 09 l Lyndsey Newman 2021-03-16 2021-03-16 Outpatient MHIE MHIE [id number] Memoria 11:45:00 11:45:00 09 jeison Newman 2021-03-16 2021-03-16 Outpatient RICCI MackaySCHER MISCHER [id number] 11:45:00 11:45:00 Markos Rafiq Davidson 2021-02-08 2021-02-08 Outpatient R LILIA, [facility] [id number] Univers 14:00:00 14:00:00 DELORES Babin [facility] 2021-02-08 2021-02-08 Outpatient R LILIA, [facility] [id number] Univers 14:00:00 14:00:00 DELORES [facility] 2021-01-27 2021-01-28 Outpatient nullFlavo MNA [id number] Memoria 15:15:00 05:59:59 r Neurology 07 l [facility] 2021-01-27 2021-01-28 Outpatient nullFlavo MNA [id number] Memoria 15:15:00 05:59:59 r Neurology 07 l [facility] 2021-01-27 2021-01-27 Outpatient MARCO A MackayMISCHER MHMISCHER [id number] 09:15:00 23:59:59 Markos 07 [place] 2021-01-27 2021-01-27 Outpatient MHIE IE [id number] Memoria 09:15:00 09:15:00 07 [facility] 2020-12-31 2021-01-01 Outpatient [facility]Flavo [facility] [id number] Memoria 12:15:00 04:59:00 r [place] 00 [facility] 2020-12-31 2021-01-01 Outpatient nullFlavo [facility] [id number] Memoria 12:15:00 04:59:00 r [place] 00 [facility] 2020-12-31 2020-12-31 Outpatient CLAIRE, [facility] [id number] [facility] 07:15:00 23:59:00 MARKOS 2020-12-31 2020-12-31 Outpatient Claire [facility] [id number] 07:15:00 23:59:00 Markos 00 [place] 2020-12-16 2020-12-17 Outpatient nullFlavo MNA [id number] Memoria 15:30:00 04:59:59 r Neurology 06 l [facility] 2020-12-16 2020-12-17 Outpatient nullFlavo MNA [id number] Memoria 15:30:00 04:59:59 r Neurology 06 l [facility] [place] 2020-12-16 2020-12-16 [facility] [id number] 10:30:00 23:59:59 Markos 06 [place] 2020-12-16 2020-12-16 Outpatient MHIE IE [id number] Memoria 10:30:00 10:30:00 06 [place] 2020-09-06 2020-09-06 Orders Doctor TUTTLE 1.2.840.[id number] [place] [address] 00:00:00 00:00:00 Only Unassigned, CHRISTEN 350.1.13.10 ity of [place] [facility] 4.2.7.2.686 Suleiman as [id number] [facility] [address] 2020-07-29 2020-07-29 Telephone Mirella Brannonsmith 1.2.840.114 [id number] Univers 00:00:00 00:00:00 , Nika Young 350.1.13.10 [place] [phone] [facility] [address] 2020-06-11 2020-06-[address] [facility] [facility] [id number] -[id number] Univers 14:00:00 14:00:00 SENDIL [id number] ity [facility] 2020-06-11 2020-06-[address] [facility] [id number] Univers 14:00:00 14:00:00 [facility] 2020-06-[address] [facility] [id number] Univers 08:00:00 08:00:00 SENDIL [id number] ity [facility] 2020-06-08 2020-06-[address] [facility] [facility] [id number] Univers 08:00:00 08:00:00 SENDIL [facility] 2020-05-20 2020-05-[address] [facility] [id number] Univers 08:30:00 08:30:00 [facility] 2020-05-11 2020-05-11 Office BonRUST 1.2.840.114 [id number] Univers 10:30:24 11:56:39 Visit Sendil Mariam Glover 350.1.13.10 [place] [phone] [facility] 059 [facility] 2020-05-11 2020-05-[address] [facility] [facility] [id number] Univers 10:30:00 10:30:00 SENDIL [id number] ity [facility] 2020-05-11 2020-05-[address] [facility] [id number] Univers 10:30:00 10:30:00 SENDIL ity [facility] 2020-05-10 2020-05-10 Orders Doctor MARRY 1.2.840.114 [id number] Univers 00:00:00 00:00:00 Only Unassigned, CHRISTEN 350.1.13.10 ity of [place] [facility] 4.2.7.2.686 Suleiman as [phone] [address] 2019-12-17 2019-12-[address] [facility] [id number] -[id number] Univers 08:20:00 08:20:00 ity [facility] 2019-12-17 2019-12-17 [facility] [id number] Univers 08:20:00 08:20:00 ALLEN ity [facility] 2019-12-10 2019-12-[address] [facility] [id number] -[id number] Univers 08:20:00 08:20:00 ity [facility] 2019-12-03 2019-12-03 Ancillary Ольга Daniels [facility] 1. 2.840.114 [id number] Univers 08:19:20 08:59:20 Visit Allen Solorio PRIMARY 350.1.13.10 [id number] [id number] Mn dical [address] [place] 2019-12-03 2019-12-[address] [facility] [id number] -[id number] Univers 08:20:00 08:20:00 [id number] ity of [facility] 2019-11-26 2019-11-[address] [facility] [id number] -[id number] Univers 08:20:00 08:20:00 [id number] ity of [facility] 2019-11-26 2019-11-26 Case Retana, [facility] 1.2.840.114 [id number] Univers 00:00:00 00:00:00 Management Ijeoma PRIMARY 350.1.13.10 [id number] [id number] Mn dical [address] 2019-11-20 2019-11-20 Anc[address]jeoma Retana [facility] 1.2.840.1 14 [id number] Univers 08:20:47 09:00:47 Visit Osmin Allen Mac PRIMARY 350.1.13.10 [id number] [id number] Mn dical [address] 2019-11-20 2019-11-[address] [facility] [id number] Univers 08:20:00 08:20:00 ity of [facility] 2019-11-20 2019-11-20 [facility] [id number] Univers 08:20:00 08:20:00 ALLEN ity [facility] 2019-11-13 2019-11-[address] [facility] [id number] -[id number] Univers 08:20:00 08:20:00 ity [facility] 2019-11-13 2019-11-13 Tylor RetanaRUST 1.2.840.114 [id number] Univers 00:00:00 00:00:00 Management Ijeoma PRIMARY 350.1.13.10 [place] [id number] Mn dical [address] [place] 2019-11-04 2019-11-04 Ancillary Ольга Daniels [facility] 1. 2.840.114 [id number] Univers 08:57:57 09:57:57 Visit Osmin Allen A PRIMARY 350.1.13.10 [place] [id number] Mn dical [address] [place] 2019-11-04 2019-11-[address] [facility] [id number] Univers 09:00:00 09:00:00 [id number] ity of [facility] 2019-11-04 2019-11-04 [facility] [id number] Univers 09:00:00 09:00:00 ALLEN ity [facility] 2019-10-22 2019-10-[address] [facility] [id number] -[id number] Univers 11:00:00 11:00:00 [id number] ity [facility] 2019-09-28 2019-09-28 Girish TUTTLE 1.2.840.114 [id number] Univers 00:00:00 00:00:00 Only Unassigned, CHRISTEN 350.1.13.10 ity of [place] [facility] 4.2.7.2.686 Suleiman as [phone] [facility] [address] [place] 2019-09-26 2019-09-26 [facility] [id number] Univers 09:00:00 09:00:00 MIKEY [id number] ity of [facility] 2019-09-26 2019-09-26 Letter Therapy-Wal [facility] 1.2.840.114 [id number] Univers 00:00:00 00:00:00 (Out) kin, PRIMARY 350.1.13.10 it y of Pcp-Phys CARE 4.2.7.2.686 [place] as PAVILLION [id number] Mn dical [address] [place] 2019-09-19 2019-09-19 Hospital [facility] 1.2.840.114 [id number] Univers 12:54:00 23:59:00 Encounter Jing PRIMARY 350.1.13.10 [place] [id number] Mn dical 807 [place] 2019-09-19 2019-09-19 Office [facility] 1.2.619.070 [id number] Univers 12:41:50 13:01:50 Visit Jing PRIMARY 350.1.13.10 it [place] [id number] Mn dical 198 [place] 2019-09-19 2019-09-19 Outpatient R [facility] [id number] Univers 13:00:00 13:00:00 JING ity of [facility] 2019-06-04 2019-06-04 Ambulatory nullFlavo MNA [id number] Memoria 18:30:00 18:30:00 Pre-Reg r Neurology 05 l [place] 2019-06-04 2019-06-04 Ambulatory nullFlavo MNA [id number] Memoria 18:30:00 18:30:00 [facility] 2019-[facility] 2019-06-04 Outpatient MHIE MHIE [id number] Memoria 13:30:00 13:30:00 05 jeison [place] 2019-06-04 2019-06-04 [facility] [id number] 13:30:00 13:30:00 Markos 05 [place] 2019-03-28 2019-03-28 Ambulatory nullFlavo MNA [id number] Memoria 20:00:00 20:00:00 Pre-Reg r Neurology 04 l Lyndsey Newman 2019-03-28 2019-03-28 Ambulatory nullFlavo MNA [id number] Memoria 20:00:00 20:00:00 Pre-Reg r Neurology 04 l Lyndsey Quevedoann 2019-03-28 2019-03-28 Outpatient MHIE IE [id number] Memoria 14:00:00 14:00:00 04 jeison [place] 2019-03-28 2019-03-28 Outpatient [facility] [id number] 14:00:00 14:00:00 Markos 04 Stuart 2018-12-27 2018-12-28 Outpatient nullFlavo MNA [id number] Memoria 19:45:00 04:59:59 r Neurology 03 jeison [place] 2018-12-27 2018-12-28 Outpatient nullFlavo MNA [id number] Memoria 19:45:00 04:59:59 r Neurology 03 jeison [place]orio [place] 2018-12-27 2018-12-27 Outpatient [facility] [id number] 14:45:00 23:59:59 Markos 03 Stuart 2018-12-27 2018-12-27 Outpatient MHIE IE [id number] Memoria 14:45:00 14:45:00 03 jeison [place] 2018-11-15 2018-11-16 Outpatient nullFlavo MNA [id number] Memoria 20:00:00 04:59:59 r Neurology 02 l [place] 2018-11-15 2018-11-16 Outpatient nullFlavo MNA [id number] Memoria 20:00:00 04:59:59 r Neurology 02 l [place] 2018-11-15 2018-11-15 Outpatient MARCO A [facility]ER [facility]CHER [id number] 15:00:00 23:59:59 Markos 02 Stuart 2018-11-15 2018-11-15 Outpatient IE IE [id number] Memoria 15:00:00 15:00:00 02 jeison Newman 2018-11-07 2018-11-07 Outpatient IE IE [id number] Memoria 13:15:00 13:15:00 01 jeison Newman 2018-11-07 2018-11-07 Outpatient IE IE [id number] Memoria 13:15:00 13:15:00 01 [place] 2018-07-26 2018-07-27 Outpatient nullFlavo MNA [id number] Memoria 16:30:00 04:59:59 r Neurology 00 l Lyndsey Newman 2018-07-26 2018-07-27 Outpatient nullFlavo MNA [id number] Memoria 16:30:00 04:59:59 r Neurology 00 l [place] 2018-07-26 2018-07-26 [facility] [id number] 11:30:00 23:59:59 Markos 00 Stuart 2018-07-26 2018-07-26 Outpatient ARTI [facility] [id number] Memoria 11:30:00 11:30:00 00 jeison Newman Results Test Description Test Time Test Comments Results Result Comments Source TSH, THIRD GENERATION 2021-08-23 06:59:46 Test Item Value Reference Range Interpretation Comme nts TSH, THIRD GENERATION (test code = 2821) 0.070 UIU/ML 0.400-4.100 L VITAMIN B 12 AND FOLIC [id number] 06:59:46 Test Item Value Reference Range Interpretation Comments VITAMIN B-12 (test 689 PG/ML 200-950 code = 2840) FOLIC ACID (test >20.0 UG/L SEE BELOW INT ERPRETIVE code = 2695) RANGES DE FICIENCY . . . . . . . . . . . . . . . UG/L <4.0 POSSIBLE DEFICIENCY. . . . . . . . . . . UG/L 4. 0-5.9 SUFFICIENT . . . . . . . . . . . . . . . UG/L >=6.0 UNLESS OT HERWISE INDICATED, ALL TESTING PERFORMED [facility] [address] [place] [address] 9058 4 LABORATORY DIRE CTOR: SAGE SANTANA M.D. CHANTELLEIA NUMBER [id number] [facility] [place]. [id number] VITAMIN D, 25 [id number] 06:44:37 Test Item Value Reference Range Interpretation Comments VITAMIN D, 25 OH 59 NG/ML SEE BELOW NOTE: 25-H YDROXYVITAMIN D (test code = 4958) [employer]AY INC LUDES 25-HYDROXYVITAM IN D2 AND D3. METHODOLOGY IS CHEMILUMINESCEN T IMMUNOASSAY. INTERPRETIVE RA NGES PEDIATRIC (<17 YEARS) . . . . . . . . . . . NG/ML 20-100ADULT: IN SUFFICIENT . . . . . . . . . . . . . . NG/ML <20 SUBOP TIMAL . . . . . . . . . . . . . . . NG/ML 20-29 OPT IMAL . . . . . . . . . . . . . . . . . NG/ML 30-100 HEMOGLOBIN [id number] 06:07:46 Test Item Value Reference Range Interpretation Comments HEMOGLOBIN A1c (test code = 56639) 5.4 % 4.2-5.6 VITAMIN D, 25 [id number] 00:00:00 Test Item Value Reference Range Interpretation Comments VITAMIN D, 25 OH (test code = 4958) 59 NG/ML VITAMIN B 12 AND FOLIC [id number] 00:00:00 Test Item Value Reference Range Interpretation Comments VITAMIN B-12 (test code = 2840) 689 PG/ML FOLIC ACID (test code = 2695) >20.0 UG/L VITAMIN B 12 AND FOLIC [id number] 00:00:00 Test Item Value Reference Range Interpretation Comments VITAMIN B-12 (test code = 2840) 689 PG/ML FOLIC ACID (test code = 2695) >20.0 UG/L HEMOGLOBIN [id number] 00:00:00 Test Item Value Reference Range Interpretation Comments HEMOGLOBIN A1c (test code = 87963) 5.4 % HEMOGLOBIN [id number] 00:00:00 Test Item Value Reference Range Interpretation Comments HEMOGLOBIN A1c (test code = 69552) 5.4 % HEMOGLOBIN [id number] 00:00:00 Test Item Value Reference Range Interpretation Comments HEMOGLOBIN A1c (test code = 22477) 5.4 % [id number] 00:00:00 Test Item Value Reference Range Interpretation Comments TSH, THIRD GENERATION (test code 0.070 UIU/ML = 2821) [id number] 00:00:00 Test Item Value Reference Range Interpretation Comments TSH, THIRD GENERATION (test code 0.070 UIU/ML = 2821) [id number] 00:00:00 Test Item Value Reference Range Interpretation Comments TSH, THIRD GENERATION (test code 0.070 UIU/ML = 2821) VITAMIN D, 25 [id number] 00:00:00 Test Item Value Reference Range Interpretation Comments VITAMIN D, 25 OH (test code = 4958) 59 NG/ML VITAMIN D, 25 [id number] 00:00:00 Test Item Value Reference Range Interpretation Comments VITAMIN D, 25 OH (test code = 4958) 59 NG/ML VITAMIN B 12 AND FOLIC [id number] 00:00:00 Test Item Value Reference Range Interpretation Comments VITAMIN B-12 (test code = 2840) 689 PG/ML FOLIC ACID (test code = 2695) >20.0 UG/L VITAMIN B 12 AND FOLIC [id number] 00:00:00 Test Item Value Reference Range Interpretation Comments VITAMIN B-12 (test code = 2840) 689 PG/ML FOLIC ACID (test code = 2695) >20.0 UG/L HEMOGLOBIN [id number] 00:00:00 Test Item Value Reference Range Interpretation Comments HEMOGLOBIN A1c (test code = 90471) 5.4 % HEMOGLOBIN [id number] 00:00:00 Test Item Value Reference Range Interpretation Comments HEMOGLOBIN A1c (test code = 32141) 5.4 % HEMOGLOBIN [id number] 00:00:00 Test Item Value Reference Range Interpretation Comments HEMOGLOBIN A1c (test code = 92511) 5.4 % [id number] 00:00:00 Test Item Value Reference Range Interpretation Comments TSH, THIRD GENERATION (test code 0.070 UIU/ML = 2821) [id number] 00:00:00 Test Item Value Reference Range Interpretation Comments TSH, THIRD GENERATION (test code 0.070 UIU/ML = 2821) [id number] 00:00:00 Test Item Value Reference Range Interpretation Comments TSH, THIRD GENERATION (test code 0.070 UIU/ML = 2821) VITAMIN D, 25 [id number] 00:00:00 Test Item Value Reference Range Interpretation Comments VITAMIN D, 25 OH (test code = 4958) 59 NG/ML [id number] 09:01:48 Test Item Value Reference Interpretation Comments Range LEVETIRACETAM 28.1 12.0-46.0 This test was developed and (test code = mcg/mL its performance 75390) characteristics determined by [facility] ([facility]). It has n ot beencleared or approved by the U.S. Food and Drug Admini stration (FDA).The FDA h as determined that such clear ance or approval is not necessary. This test is us ed for clinical purpos es and should not beregarded as investigational or for research. [facility] i s qualified toperform high complexity testing under t Clinical LaboratoryImpro vement Amendments (CLI A). TESTING PERFORMED AT [facility] [address], [place] [address], [address], [place] [address] CLIA NO: [id number] 09:01:48 Test Item Value Reference Interpretation Comments Range LAMOTRIGINE 11.8 2.5-15.0 This test was d eveloped and (test code = mcg/mL its performance 81725) characteristics determined by [facility] ([facility]). It has n ot beencleared or approved by the U.S. Food and Drug Admini stration (FDA).The FDA h as determined that such clear ance or approval is not necessary. This test is used fo r clinical purposes and sh ould not beregarded as i nvestigational or for research . [facility] is qualified toper form high complexity test ing under the Clinical Labora toryImprovement Amendments (CLI A). TESTING PERFORMED AT [facility] [address], [place] [address], [address] [place], [place] [address] CLIA NO: [id number] UNLE SS OTHERWISE INDICATED, ALL TESTING PERFORMED [facility] [place]. [address] [place] [address] 0444 DOG BREEDER: SAGE MARROQUIN M.D. TERESA López [id number] [facility] [place]. [id number] 00:00:00 Test Item Value Reference Range Interpretation Comments LEVETIRACETAM (test code = 92138) 28.1 mcg/mL [id number] 00:00:00 Test Item Value Reference Range Interpretation Comments LEVETIRACETAM (test code = 77233) 28.1 mcg/mL [id number] 00:00:00 Test Item Value Reference Range Interpretation Comments LAMOTRIGINE (test code = 96794) 11.8 mcg/mL [id number] 00:00:00 Test Item Value Reference Range Interpretation Comments LAMOTRIGINE (test code = 30780) 11.8 mcg/mL [id number] 00:00:00 Test Item Value Reference Range Interpretation Comments LEVETIRACETAM (test code = 13172) 28.1 mcg/mL [id number] 00:00:00 Test Item Value Reference Range Interpretation Comments LEVETIRACETAM (test code = 06758) 28.1 mcg/mL [id number] 00:00:00 Test Item Value Reference Range Interpretation Comments LAMOTRIGINE (test code = 64768) 11.8 mcg/mL [id number] 00:00:00 Test Item Value Reference Range Interpretation Comments LAMOTRIGINE (test code = 53414) 11.8 mcg/mL LIPID [id number] 05:03:13 Test Item Value Reference Range Interpretation Comments CHOLESTEROL (test 180 MG/DL <200 code = 2210) TRIGLYCERIDES (test 95 MG/DL <150 code = 2232) HDL CHOLESTEROL (test 52 MG/DL >39 code = 2220) CALC LDL CHOL (test 109 MG/DL <100 H NOTE: C ALCULATED LDL code = 2237) IS BASED ON KATIA-JACKSON METHOD WHICHINCLUDES ADJUSTABLE TRIGLYCERIDE:VL DL CHOLESTEROL RAT IO.THIS FACTOR VARIES B Y MEASURED TRIGLY CERIDE AND NON-HDLCHOL ESTEROL CONCENTRATIONS WITH INCREASED CALCU LATED LDL SEENIN HIGH ER TRIGLYCERIDE OR LOWER NON-HDL SPECIME NS. FOR MOREINFORMATION , SEE CLIENT ANNOUNCE MENT AT [email or web address] RISK RATIO LDL/HDL 2.10 RATIO <3.22 (test code = 223) COMPREHENSIVE METABOLIC [id number] 05:03:13 Test Item Value Reference Range Interpretation Comments GLUCOSE (test code = 90 MG/DL 70-99 2216) BUN (test code = 13 MG/DL 6-20 2207) CREATININE (test 1.18 MG/DL 0.60-1.30 code = 221) eGFR (2020 CKD-EPI) 54 ML/MIN/1.73 >60 L (test code = 26347) CALC BUN/CREAT (test 11 RATIO 6-28 code = 2235) SODIUM (test code = 141 MEQ/L 314-296 5815) POTASSIUM (test code 3.5 MEQ/L 3.5-5.4 = 2227) CHLORIDE (test code 99 MEQ/L 95-107 = 2214) CARBON DIOXIDE (test 27 MEQ/L 19-31 code = 220) CALCIUM (test code = 10.2 MG/DL 8.5-10.5 2208) PROTEIN, TOTAL (test 7.2 G/DL 6.1-8.3 code = 222) ALBUMIN (test code = 5.0 G/DL 3.5-5.2 2200) CALC GLOBULIN (test 2.2 G/DL 1.9-3.7 code = 2240) CALC A/G RATIO (test 2.3 RATIO 1.0-2.6 code = 223) BILIRUBIN, TOTAL 0.5 MG/DL See_Comment [Automated message] (test code = 2207) The syste m which generated this result transmit sonia reference range : <=1.2. The refe rence range was not u sed to interpret th is result as normal/abnormal . ALKALINE PHOSPHATASE 116 U/L 40-136 (test code = 2203) AST (test code = 47 U/L 9-40 H 2217) ALT (test code = 33 U/L 5-40 2218) HEMOGLOBIN [id number] 04:27:11 Test Item Value Reference Range Interpretation Comments HEMOGLOBIN A1c (test code = 33137) 5.7 % 4.2-5.6 H CBC W/AUTO DIFF WITH [id number] 03:03:33 Test Item Value Reference Range Interpretation Comments WBC (test code = 8.0 K/UL 3.5-11.0 1001) RBC (test code = 5.05 M/UL 3.80-5.40 1002) HEMOGLOBIN (test code 14.1 G/DL 11.5-15.5 = 1003) HEMATOCRIT (test code 41.7 % 34.0-45.0 = 1004) MCV (test code = 82.6 fL 80.0-99.0 1005) MCH (test code = 27.9 PG 25.0-33.0 1006) MCHC (test code = 33.8 G/DL 31.0-36.0 1007) RDW (test code = 15.9 % 11.5-15.0 H 1038) NEUTROPHILS (test 62.5 % code = 1008) LYMPHOCYTES (test 26.0 % code = 1010) MONOCYTES (test code 9.5 % = 1011) EOSINOPHILS (test 1.1 % code = 1012) BASOPHILS (test code 0.6 % = 1013) IMMATURE GRANULOCYTES 0.3 % (test code = 1036) NUCLEATED RBCS (test 0.0 /100 WBC'S See_Comment [Aut omated code = 1065) message] The sy stem which generated this result transmitted reference range : 0.0. The refere nce range was not u sed to interpret th is result as normal/abnormal . PLATELET COUNT (test 280 K/UL 130-400 code = 1015) ABSOLUTE NEUTROPHILS 4.97 K/UL 1.50-7.50 (test code = 1066) ABSOLUTE LYMPHOCYTES 2.07 K/UL 1.00-4.00 (test code = 1067) ABSOLUTE MONOCYTES 0.76 K/UL 0.20-1.00 (test code = 1068) ABSOLUTE EOSINOPHILS 0.09 K/UL 0.00-0.50 (test code = 1040) ABSOLUTE BASOPHILS 0.05 K/UL 0.00-0.20 (test code = 1069) ABS IMMATURE 0.02 K/UL 0.00-0.10 GRANULOCYTES (test code = 1020) ABS NUCLEATED RBCS 0.00 K/UL 0.00-0.11 (test code = 38482) COMPREHENSIVE METABOLIC [id number] 00:00:00 Test Item Value Reference Range Interpretation Comments GLUCOSE (test code = 2217) 90 MG/DL BUN (test code = 2208) 13 MG/DL CREATININE (test code = 2214) 1.18 MG/DL eGFR (2020 CKD-EPI) (test code 54 ML/MIN/1.73 = 55314) CALC BUN/CREAT (test code = 11 RATIO 2235) SODIUM (test code = 2231) 141 MEQ/L POTASSIUM (test code = 2228) 3.5 MEQ/L CHLORIDE (test code = 2215) 99 MEQ/L CARBON DIOXIDE (test code = 27 MEQ/L 2206) CALCIUM (test code = 2209) 10.2 MG/DL PROTEIN, TOTAL (test code = 7.2 G/DL 2228) ALBUMIN (test code = 2201) 5.0 G/DL CALC GLOBULIN (test code = 2.2 G/DL 2240) CALC A/G RATIO (test code = 2.3 RATIO 2234) BILIRUBIN, TOTAL (test code = 0.5 MG/DL 2206) ALKALINE PHOSPHATASE (test 116 U/L code = 2204) AST (test code = 2218) 47 U/L ALT (test code = 2219) 33 U/L COMPREHENSIVE METABOLIC [id number] 00:00:00 Test Item Value Reference Range Interpretation Comments GLUCOSE (test code = 2217) 90 MG/DL BUN (test code = 2208) 13 MG/DL CREATININE (test code = 2214) 1.18 MG/DL eGFR (2020 CKD-EPI) (test code 54 ML/MIN/1.73 = 47377) CALC BUN/CREAT (test code = 11 RATIO 2235) SODIUM (test code = 2231) 141 MEQ/L POTASSIUM (test code = 2228) 3.5 MEQ/L CHLORIDE (test code = 2215) 99 MEQ/L CARBON DIOXIDE (test code = 27 MEQ/L 2206) CALCIUM (test code = 2209) 10.2 MG/DL PROTEIN, TOTAL (test code = 7.2 G/DL 2228) ALBUMIN (test code = 2201) 5.0 G/DL CALC GLOBULIN (test code = 2.2 G/DL 2240) CALC A/G RATIO (test code = 2.3 RATIO 2234) BILIRUBIN, TOTAL (test code = 0.5 MG/DL 2207) ALKALINE PHOSPHATASE (test 116 U/L code = 2204) AST (test code = 2218) 47 U/L ALT (test code = 2219) 33 U/L CBC W/AUTO [id number] 00:00:00 Test Item Value Reference Range Interpretation Comments WBC (test code = 1001) 8.0 K/UL RBC (test code = 1002) 5.05 M/UL HEMOGLOBIN (test code = 1003) 14.1 G/DL HEMATOCRIT (test code = 1004) 41.7 % MCV (test code = 1005) 82.6 fL MCH (test code = 1006) 27.9 PG MCHC (test code = 1007) 33.8 G/DL RDW (test code = 1038) 15.9 % NEUTROPHILS (test code = 1008) 62.5 % LYMPHOCYTES (test code = 1010) 26.0 % MONOCYTES (test code = 1011) 9.5 % EOSINOPHILS (test code = 1012) 1.1 % BASOPHILS (test code = 1013) 0.6 % IMMATURE GRANULOCYTES (test 0.3 % code = 1036) NUCLEATED RBCS (test code = 0.0 /100WBC'S 1065) PLATELET COUNT (test code = 280 K/UL 1015) ABSOLUTE NEUTROPHILS (test code 4.97 K/UL = 1066) ABSOLUTE LYMPHOCYTES (test code 2.07 K/UL = 1067) ABSOLUTE MONOCYTES (test code = 0.76 K/UL 1068) ABSOLUTE EOSINOPHILS (test code 0.09 K/UL = 1040) ABSOLUTE BASOPHILS (test code = 0.05 K/UL 1069) ABS IMMATURE GRANULOCYTES (test 0.02 K/UL code = 1020) ABS NUCLEATED RBCS (test code = 0.00 K/UL 87126) CBC W/AUTO [id number] 00:00:00 Test Item Value Reference Range Interpretation Comments WBC (test code = 1001) 8.0 K/UL RBC (test code = 1002) 5.05 M/UL HEMOGLOBIN (test code = 1003) 14.1 G/DL HEMATOCRIT (test code = 1004) 41.7 % MCV (test code = 1005) 82.6 fL MCH (test code = 1006) 27.9 PG MCHC (test code = 1007) 33.8 G/DL RDW (test code = 1038) 15.9 % NEUTROPHILS (test code = 1008) 62.5 % LYMPHOCYTES (test code = 1010) 26.0 % MONOCYTES (test code = 1011) 9.5 % EOSINOPHILS (test code = 1012) 1.1 % BASOPHILS (test code = 1013) 0.6 % IMMATURE GRANULOCYTES (test 0.3 % code = 1036) NUCLEATED RBCS (test code = 0.0 /100WBC'S 1065) PLATELET COUNT (test code = 280 K/UL 1015) ABSOLUTE NEUTROPHILS (test code 4.97 K/UL = 1066) ABSOLUTE LYMPHOCYTES (test code 2.07 K/UL = 1067) ABSOLUTE MONOCYTES (test code = 0.76 K/UL 1068) ABSOLUTE EOSINOPHILS (test code 0.09 K/UL = 1040) ABSOLUTE BASOPHILS (test code = 0.05 K/UL 1069) ABS IMMATURE GRANULOCYTES (test 0.02 K/UL code = 1020) ABS NUCLEATED RBCS (test code = 0.00 K/UL 84663) CBC W/AUTO [id number] 00:00:00 Test Item Value Reference Range Interpretation Comments WBC (test code = 1001) 8.0 K/UL RBC (test code = 1002) 5.05 M/UL HEMOGLOBIN (test code = 1003) 14.1 G/DL HEMATOCRIT (test code = 1004) 41.7 % MCV (test code = 1005) 82.6 fL MCH (test code = 1006) 27.9 PG MCHC (test code = 1007) 33.8 G/DL RDW (test code = 1038) 15.9 % NEUTROPHILS (test code = 1008) 62.5 % LYMPHOCYTES (test code = 1010) 26.0 % MONOCYTES (test code = 1011) 9.5 % EOSINOPHILS (test code = 1012) 1.1 % BASOPHILS (test code = 1013) 0.6 % IMMATURE GRANULOCYTES (test 0.3 % code = 1036) NUCLEATED RBCS (test code = 0.0 /100WBC'S 1065) PLATELET COUNT (test code = 280 K/UL 1015) ABSOLUTE NEUTROPHILS (test code 4.97 K/UL = 1066) ABSOLUTE LYMPHOCYTES (test code 2.07 K/UL = 1067) ABSOLUTE MONOCYTES (test code = 0.76 K/UL 1068) ABSOLUTE EOSINOPHILS (test code 0.09 K/UL = 1040) ABSOLUTE BASOPHILS (test code = 0.05 K/UL 1069) ABS IMMATURE GRANULOCYTES (test 0.02 K/UL code = 1020) ABS NUCLEATED RBCS (test code = 0.00 K/UL 85416) HEMOGLOBIN [id number] 00:00:00 Test Item Value Reference Range Interpretation Comments HEMOGLOBIN A1c (test code = 53724) 5.7 % HEMOGLOBIN [id number] 00:00:00 Test Item Value Reference Range Interpretation Comments HEMOGLOBIN A1c (test code = 90513) 5.7 % HEMOGLOBIN [id number] 00:00:00 Test Item Value Reference Range Interpretation Comments HEMOGLOBIN A1c (test code = 78237) 5.7 % LIPID [id number] 00:00:00 Test Item Value Reference Range Interpretation Comments CHOLESTEROL (test code = 2210) 180 MG/DL TRIGLYCERIDES (test code = 2232) 95 MG/DL HDL CHOLESTEROL (test code = 2220) 52 MG/DL CALC LDL CHOL (test code = 2237) 109 MG/DL RISK RATIO LDL/HDL (test code = 2.10 RATIO 2238) LIPID [id number] 00:00:00 Test Item Value Reference Range Interpretation Comments CHOLESTEROL (test code = 2210) 180 MG/DL TRIGLYCERIDES (test code = 2232) 95 MG/DL HDL CHOLESTEROL (test code = 2220) 52 MG/DL CALC LDL CHOL (test code = 2237) 109 MG/DL RISK RATIO LDL/HDL (test code = 2.10 RATIO 2238) COMPREHENSIVE METABOLIC [id number] 00:00:00 Test Item Value Reference Range Interpretation Comments GLUCOSE (test code = 2217) 90 MG/DL BUN (test code = 2208) 13 MG/DL CREATININE (test code = 2214) 1.18 MG/DL eGFR (2020 CKD-EPI) (test code 54 ML/MIN/1.73 = 53568) CALC BUN/CREAT (test code = 11 RATIO 2235) SODIUM (test code = 2231) 141 MEQ/L POTASSIUM (test code = 2228) 3.5 MEQ/L CHLORIDE (test code = 2215) 99 MEQ/L CARBON DIOXIDE (test code = 27 MEQ/L 2205) CALCIUM (test code = 2209) 10.2 MG/DL PROTEIN, TOTAL (test code = 7.2 G/DL 2228) ALBUMIN (test code = 2201) 5.0 G/DL CALC GLOBULIN (test code = 2.2 G/DL 2240) CALC A/G RATIO (test code = 2.3 RATIO 2234) BILIRUBIN, TOTAL (test code = 0.5 MG/DL 2206) ALKALINE PHOSPHATASE (test 116 U/L code = 2204) AST (test code = 2218) 47 U/L ALT (test code = 2219) 33 U/L COMPREHENSIVE METABOLIC [id number] 00:00:00 Test Item Value Reference Range Interpretation Comments GLUCOSE (test code = 2217) 90 MG/DL BUN (test code = 2208) 13 MG/DL CREATININE (test code = 2214) 1.18 MG/DL eGFR (2020 CKD-EPI) (test code 54 ML/MIN/1.73 = 85927) CALC BUN/CREAT (test code = 11 RATIO 2235) SODIUM (test code = 2231) 141 MEQ/L POTASSIUM (test code = 2228) 3.5 MEQ/L CHLORIDE (test code = 2215) 99 MEQ/L CARBON DIOXIDE (test code = 27 MEQ/L 2205) CALCIUM (test code = 2209) 10.2 MG/DL PROTEIN, TOTAL (test code = 7.2 G/DL 2228) ALBUMIN (test code = 2201) 5.0 G/DL CALC GLOBULIN (test code = 2.2 G/DL 2240) CALC A/G RATIO (test code = 2.3 RATIO 2234) BILIRUBIN, TOTAL (test code = 0.5 MG/DL 2206) ALKALINE PHOSPHATASE (test 116 U/L code = 2204) AST (test code = 2218) 47 U/L ALT (test code = 2219) 33 U/L CBC W/AUTO [id number] 00:00:00 Test Item Value Reference Range Interpretation Comments WBC (test code = 1001) 8.0 K/UL RBC (test code = 1002) 5.05 M/UL HEMOGLOBIN (test code = 1003) 14.1 G/DL HEMATOCRIT (test code = 1004) 41.7 % MCV (test code = 1005) 82.6 fL MCH (test code = 1006) 27.9 PG MCHC (test code = 1007) 33.8 G/DL RDW (test code = 1038) 15.9 % NEUTROPHILS (test code = 1008) 62.5 % LYMPHOCYTES (test code = 1010) 26.0 % MONOCYTES (test code = 1011) 9.5 % EOSINOPHILS (test code = 1012) 1.1 % BASOPHILS (test code = 1013) 0.6 % IMMATURE GRANULOCYTES (test 0.3 % code = 1036) NUCLEATED RBCS (test code = 0.0 /100WBC'S 1065) PLATELET COUNT (test code = 280 K/UL 1015) ABSOLUTE NEUTROPHILS (test code 4.97 K/UL = 1066) ABSOLUTE LYMPHOCYTES (test code 2.07 K/UL = 1067) ABSOLUTE MONOCYTES (test code = 0.76 K/UL 1068) ABSOLUTE EOSINOPHILS (test code 0.09 K/UL = 1040) ABSOLUTE BASOPHILS (test code = 0.05 K/UL 1069) ABS IMMATURE GRANULOCYTES (test 0.02 K/UL code = 1020) ABS NUCLEATED RBCS (test code = 0.00 K/UL 69845) CBC W/AUTO [id number] 00:00:00 Test Item Value Reference Range Interpretation Comments WBC (test code = 1001) 8.0 K/UL RBC (test code = 1002) 5.05 M/UL HEMOGLOBIN (test code = 1003) 14.1 G/DL HEMATOCRIT (test code = 1004) 41.7 % MCV (test code = 1005) 82.6 fL MCH (test code = 1006) 27.9 PG MCHC (test code = 1007) 33.8 G/DL RDW (test code = 1038) 15.9 % NEUTROPHILS (test code = 1008) 62.5 % LYMPHOCYTES (test code = 1010) 26.0 % MONOCYTES (test code = 1011) 9.5 % EOSINOPHILS (test code = 1012) 1.1 % BASOPHILS (test code = 1013) 0.6 % IMMATURE GRANULOCYTES (test 0.3 % code = 1036) NUCLEATED RBCS (test code = 0.0 /100WBC'S 1065) PLATELET COUNT (test code = 280 K/UL 1015) ABSOLUTE NEUTROPHILS (test code 4.97 K/UL = 1066) ABSOLUTE LYMPHOCYTES (test code 2.07 K/UL = 1067) ABSOLUTE MONOCYTES (test code = 0.76 K/UL 1068) ABSOLUTE EOSINOPHILS (test code 0.09 K/UL = 1040) ABSOLUTE BASOPHILS (test code = 0.05 K/UL 1069) ABS IMMATURE GRANULOCYTES (test 0.02 K/UL code = 1020) ABS NUCLEATED RBCS (test code = 0.00 K/UL 97354) CBC W/AUTO [id number] 00:00:00 Test Item Value Reference Range Interpretation Comments WBC (test code = 1001) 8.0 K/UL RBC (test code = 1002) 5.05 M/UL HEMOGLOBIN (test code = 1003) 14.1 G/DL HEMATOCRIT (test code = 1004) 41.7 % MCV (test code = 1005) 82.6 fL MCH (test code = 1006) 27.9 PG MCHC (test code = 1007) 33.8 G/DL RDW (test code = 1038) 15.9 % NEUTROPHILS (test code = 1008) 62.5 % LYMPHOCYTES (test code = 1010) 26.0 % MONOCYTES (test code = 1011) 9.5 % EOSINOPHILS (test code = 1012) 1.1 % BASOPHILS (test code = 1013) 0.6 % IMMATURE GRANULOCYTES (test 0.3 % code = 1036) NUCLEATED RBCS (test code = 0.0 /100WBC'S 1065) PLATELET COUNT (test code = 280 K/UL 1015) ABSOLUTE NEUTROPHILS (test code 4.97 K/UL = 1066) ABSOLUTE LYMPHOCYTES (test code 2.07 K/UL = 1067) ABSOLUTE MONOCYTES (test code = 0.76 K/UL 1068) ABSOLUTE EOSINOPHILS (test code 0.09 K/UL = 1040) ABSOLUTE BASOPHILS (test code = 0.05 K/UL 1069) ABS IMMATURE GRANULOCYTES (test 0.02 K/UL code = 1020) ABS NUCLEATED RBCS (test code = 0.00 K/UL 44076) HEMOGLOBIN [id number] 00:00:00 Test Item Value Reference Range Interpretation Comments HEMOGLOBIN A1c (test code = 82341) 5.7 % HEMOGLOBIN [id number] 00:00:00 Test Item Value Reference Range Interpretation Comments HEMOGLOBIN A1c (test code = 42856) 5.7 % HEMOGLOBIN [id number] 00:00:00 Test Item Value Reference Range Interpretation Comments HEMOGLOBIN A1c (test code = 70124) 5.7 % LIPID [id number] 00:00:00 Test Item Value Reference Range Interpretation Comments CHOLESTEROL (test code = 2210) 180 MG/DL TRIGLYCERIDES (test code = 2232) 95 MG/DL HDL CHOLESTEROL (test code = 2220) 52 MG/DL CALC LDL CHOL (test code = 2237) 109 MG/DL RISK RATIO LDL/HDL (test code = 2.10 RATIO 2238) LIPID [id number] 00:00:00 Test Item Value Reference Range Interpretation Comments CHOLESTEROL (test code = 2210) 180 MG/DL TRIGLYCERIDES (test code = 2232) 95 MG/DL HDL CHOLESTEROL (test code = 2220) 52 MG/DL CALC LDL CHOL (test code = 2237) 109 MG/DL RISK RATIO LDL/HDL (test code = 2.10 RATIO 2238) VITAMIN D, 25 [id number] 00:00:00 Test Item Value Reference Range Interpretation Comments VITAMIN D, 25 OH (test code = 4958) 45 NG/ML VITAMIN D, 25 [id number] 00:00:00 Test Item Value Reference Range Interpretation Comments VITAMIN D, 25 OH (test code = 4958) 45 NG/ML VITAMIN D, 25 [id number] 00:00:00 Test Item Value Reference Range Interpretation Comments VITAMIN D, 25 OH (test code = 4958) 45 NG/ML VITAMIN D, 25 [id number] 00:00:00 Test Item Value Reference Range Interpretation Comments VITAMIN D, 25 OH (test code = 4958) 45 NG/ML RISPERIDONE, [id number] 00:00:00 Test Item Value Reference Range Interpretation Comments RISPERIDONE (test code = 13303) <5.0 ng/mL 9-OH RISPERIDONE (test code = <5.0 ng/mL 07434) RISPERIDONE + 9-OH RISPER (test <10.0 ng/mL code = 57742) RISPERIDONE, [id number] 00:00:00 Test Item Value Reference Range Interpretation Comments RISPERIDONE (test code = 21936) <5.0 ng/mL 9-OH RISPERIDONE (test code = <5.0 ng/mL 08961) RISPERIDONE + 9-OH RISPER (test <10.0 ng/mL code = 04547) RISPERIDONE, [id number] 00:00:00 Test Item Value Reference Range Interpretation Comments RISPERIDONE (test code = 76619) <5.0 ng/mL 9-OH RISPERIDONE (test code = <5.0 ng/mL 79040) RISPERIDONE + 9-OH RISPER (test <10.0 ng/mL code = 32687) RISPERIDONE, [id number] 00:00:00 Test Item Value Reference Range Interpretation Comments RISPERIDONE (test code = 52849) <5.0 ng/mL 9-OH RISPERIDONE (test code = <5.0 ng/mL 77982) RISPERIDONE + 9-OH RISPER (test <10.0 ng/mL code = 88817) [id number] 00:00:00 Test Item Value Reference Range Interpretation Comments LEVETIRACETAM (test code = 09216) 10.1 mcg/mL [id number] 00:00:00 Test Item Value Reference Range Interpretation Comments LEVETIRACETAM (test code = 85658) 10.1 mcg/mL [id number] 00:00:00 Test Item Value Reference Range Interpretation Comments LEVETIRACETAM (test code = 30688) 10.1 mcg/mL [id number] 00:00:00 Test Item Value Reference Range Interpretation Comments LEVETIRACETAM (test code = 98505) 10.1 mcg/mL RACHEL TITER AND PATTERN [REFLEX]2020-09-02 00:00:00 Test Item Value Reference Range Interpretation Comments PATTERN (test code = HOMOGENEOUS 09437) RACHEL TITER (test code = 1:320 TITER 3550) PATTERN 2 (test code = NOT DETECTED 53348) RACHEL TITER 2 (test code = NOT DETECTED TITER 72903) PATTERN 3 (test code = NOT DETECTED 49081) RACHEL TITER 3 (test code = NOT DETECTED TITER 07397) METHOD (test code = 17231) (NOTE) HEMOGLOBIN [id number] 00:00:00 Test Item Value Reference Range Interpretation Comments HEMOGLOBIN A1c (test code = 78079) 5.9 % HEMOGLOBIN [id number] 00:00:00 Test Item Value Reference Range Interpretation Comments HEMOGLOBIN A1c (test code = 47564) 5.9 % HEMOGLOBIN [id number] 00:00:00 Test Item Value Reference Range Interpretation Comments HEMOGLOBIN A1c (test code = 12935) 5.9 % RACHEL TITER AND PATTERN [REFLEX]2020-09-02 00:00:00 Test Item Value Reference Range Interpretation Comments PATTERN (test code = HOMOGENEOUS 80197) RACHEL TITER (test code = 1:320 TITER 3550) PATTERN 2 (test code = NOT DETECTED 33132) RACHEL TITER 2 (test code = NOT DETECTED TITER 71564) PATTERN 3 (test code = NOT DETECTED 88173) RACHEL TITER 3 (test code = NOT DETECTED TITER 29188) METHOD (test code = 97366) (NOTE) HEMOGLOBIN [id number] 00:00:00 Test Item Value Reference Range Interpretation Comments HEMOGLOBIN A1c (test code = 31777) 5.9 % HEMOGLOBIN [id number] 00:00:00 Test Item Value Reference Range Interpretation Comments HEMOGLOBIN A1c (test code = 21057) 5.9 % HEMOGLOBIN [id number] 00:00:00 Test Item Value Reference Range Interpretation Comments HEMOGLOBIN A1c (test code = 73682) 5.9 % COMPREHENSIVE METABOLIC [id number] 00:00:00 Test Item Value Reference Range Interpretation Comments GLUCOSE (test code = 2217) 86 MG/DL BUN (test code = 2208) 14 MG/DL CREATININE (test code = 2214) 1.03 MG/DL eGFR AMER. (test code 70 ML/MIN/1.73 = 62890) eGFR NON- AMER. (test 60 ML/MIN/1.73 code = 66745) CALC BUN/CREAT (test code = 14 RATIO 2235) SODIUM (test code = 2231) 142 MEQ/L POTASSIUM (test code = 2228) 4.6 MEQ/L CHLORIDE (test code = 2215) 103 MEQ/L CARBON DIOXIDE (test code = 28 MEQ/L 2205) CALCIUM (test code = 2209) 9.3 MG/DL PROTEIN, TOTAL (test code = 6.9 G/DL 2228) ALBUMIN (test code = 2201) 4.6 G/DL CALC GLOBULIN (test code = 2.3 G/DL 2239) CALC A/G RATIO (test code = 2.0 RATIO 2234) BILIRUBIN, TOTAL (test code = 0.5 MG/DL 2206) ALKALINE PHOSPHATASE (test 112 U/L code = 2204) AST (test code = 2218) 44 U/L ALT (test code = 2219) 34 U/L CBC W/AUTO [id number] 00:00:00 Test Item Value Reference Range Interpretation Comments WBC (test code = 1001) 6.2 K/UL RBC (test code = 1002) 4.72 M/UL HEMOGLOBIN (test code = 1003) 12.5 G/DL HEMATOCRIT (test code = 1004) 39.1 % MCV (test code = 1005) 82.8 fL MCH (test code = 1006) 26.5 PG MCHC (test code = 1007) 32.0 G/DL RDW (test code = 1038) 13.9 % NEUTROPHILS (test code = 1008) 65.3 % LYMPHOCYTES (test code = 1010) 21.2 % MONOCYTES (test code = 1011) 10.3 % EOSINOPHILS (test code = 1012) 1.9 % BASOPHILS (test code = 1013) 1.1 % IMMATURE GRANULOCYTES (test 0.2 % code = 1036) NUCLEATED RBCS (test code = 0.0 /100WBC'S 1065) PLATELET COUNT (test code = 273 K/UL 1015) ABSOLUTE NEUTROPHILS (test code 4.06 K/UL = 1066) ABSOLUTE LYMPHOCYTES (test code 1.32 K/UL = 1067) ABSOLUTE MONOCYTES (test code = 0.64 K/UL 1068) ABSOLUTE EOSINOPHILS (test code 0.12 K/UL = 1040) ABSOLUTE BASOPHILS (test code = 0.07 K/UL 1069) ABS IMMATURE GRANULOCYTES (test 0.01 K/UL code = 1020) ABS NUCLEATED RBCS (test code = 0.00 K/UL 24277) CBC W/AUTO [id number] 00:00:00 Test Item Value Reference Range Interpretation Comments WBC (test code = 1001) 6.2 K/UL RBC (test code = 1002) 4.72 M/UL HEMOGLOBIN (test code = 1003) 12.5 G/DL HEMATOCRIT (test code = 1004) 39.1 % MCV (test code = 1005) 82.8 fL MCH (test code = 1006) 26.5 PG MCHC (test code = 1007) 32.0 G/DL RDW (test code = 1038) 13.9 % NEUTROPHILS (test code = 1008) 65.3 % LYMPHOCYTES (test code = 1010) 21.2 % MONOCYTES (test code = 1011) 10.3 % EOSINOPHILS (test code = 1012) 1.9 % BASOPHILS (test code = 1013) 1.1 % IMMATURE GRANULOCYTES (test 0.2 % code = 1036) NUCLEATED RBCS (test code = 0.0 /100WBC'S 1065) PLATELET COUNT (test code = 273 K/UL 1015) ABSOLUTE NEUTROPHILS (test code 4.06 K/UL = 1066) ABSOLUTE LYMPHOCYTES (test code 1.32 K/UL = 1067) ABSOLUTE MONOCYTES (test code = 0.64 K/UL 1068) ABSOLUTE EOSINOPHILS (test code 0.12 K/UL = 1040) ABSOLUTE BASOPHILS (test code = 0.07 K/UL 1069) ABS IMMATURE GRANULOCYTES (test 0.01 K/UL code = 1020) ABS NUCLEATED RBCS (test code = 0.00 K/UL 04414) CBC W/AUTO [id number] 00:00:00 Test Item Value Reference Range Interpretation Comments WBC (test code = 1001) 6.2 K/UL RBC (test code = 1002) 4.72 M/UL HEMOGLOBIN (test code = 1003) 12.5 G/DL HEMATOCRIT (test code = 1004) 39.1 % MCV (test code = 1005) 82.8 fL MCH (test code = 1006) 26.5 PG MCHC (test code = 1007) 32.0 G/DL RDW (test code = 1038) 13.9 % NEUTROPHILS (test code = 1008) 65.3 % LYMPHOCYTES (test code = 1010) 21.2 % MONOCYTES (test code = 1011) 10.3 % EOSINOPHILS (test code = 1012) 1.9 % BASOPHILS (test code = 1013) 1.1 % IMMATURE GRANULOCYTES (test 0.2 % code = 1036) NUCLEATED RBCS (test code = 0.0 /100WBC'S 1065) PLATELET COUNT (test code = 273 K/UL 1015) ABSOLUTE NEUTROPHILS (test code 4.06 K/UL = 1066) ABSOLUTE LYMPHOCYTES (test code 1.32 K/UL = 1067) ABSOLUTE MONOCYTES (test code = 0.64 K/UL 1068) ABSOLUTE EOSINOPHILS (test code 0.12 K/UL = 1040) ABSOLUTE BASOPHILS (test code = 0.07 K/UL 1069) ABS IMMATURE GRANULOCYTES (test 0.01 K/UL code = 1020) ABS NUCLEATED RBCS (test code = 0.00 K/UL 78078) RHEUMATOID FACTOR, [id number] 00:00:00 Test Item Value Reference Range Interpretation Comments RHEUMATOID FACTOR, QUANT (test code <10 IU/ML = 3502) RHEUMATOID FACTOR, [id number] 00:00:00 Test Item Value Reference Range Interpretation Comments RHEUMATOID FACTOR, QUANT (test code <10 IU/ML = 3502) RHEUMATOID FACTOR, [id number] 00:00:00 Test Item Value Reference Range Interpretation Comments RHEUMATOID FACTOR, QUANT (test code <10 IU/ML = 3502) C-REACTIVE [id number] 00:00:00 Test Item Value Reference Range Interpretation Comments C-REACTIVE PROTEIN (test code = <0.3 MG/DL 3513) C-REACTIVE [id number] 00:00:00 Test Item Value Reference Range Interpretation Comments C-REACTIVE PROTEIN (test code = <0.3 MG/DL 3513) RACHEL (ANTI-NUCLEAR AB) WITH REFLEX [id number] 00:00:00 Test Item Value Reference Range Interpretation Comments ANTI-NUCLEAR ANTIBODIES (test code = POSITIVE 3506) RACHEL (ANTI-NUCLEAR AB) WITH REFLEX [id number] 00:00:00 Test Item Value Reference Range Interpretation Comments ANTI-NUCLEAR ANTIBODIES (test code = POSITIVE 3506) SEDIMENTATION [id number] 00:00:00 Test Item Value Reference Range Interpretation Comments SEDIMENTATION RATE (test code = 5 MM/HOUR 1017) SEDIMENTATION [id number] 00:00:00 Test Item Value Reference Range Interpretation Comments SEDIMENTATION RATE (test code = 5 MM/HOUR 1017) URIC [id number] 00:00:00 Test Item Value Reference Range Interpretation Comments URIC ACID (test code = 2233) 4.9 MG/DL URIC [id number] 00:00:00 Test Item Value Reference Range Interpretation Comments URIC ACID (test code = 2233) 4.9 MG/DL [id number] 00:00:00 Test Item Value Reference Range Interpretation Comments TSH, THIRD GENERATION (test code 0.501 UIU/ML = 2821) [id number] 00:00:00 Test Item Value Reference Range Interpretation Comments TSH, THIRD GENERATION (test code 0.501 UIU/ML = 2821) [id number] 00:00:00 Test Item Value Reference Range Interpretation Comments TSH, THIRD GENERATION (test code 0.501 UIU/ML = 2821) COMPREHENSIVE METABOLIC [id number] 00:00:00 Test Item Value Reference Range Interpretation Comments GLUCOSE (test code = 2217) 86 MG/DL BUN (test code = 2208) 14 MG/DL CREATININE (test code = 2214) 1.03 MG/DL eGFR AMER. (test code 70 ML/MIN/1.73 = 30435) eGFR NON- AMER. (test 60 ML/MIN/1.73 code = 30654) CALC BUN/CREAT (test code = 14 RATIO 2235) SODIUM (test code = 2231) 142 MEQ/L POTASSIUM (test code = 2228) 4.6 MEQ/L CHLORIDE (test code = 2215) 103 MEQ/L CARBON DIOXIDE (test code = 28 MEQ/L 220) CALCIUM (test code = 2209) 9.3 MG/DL PROTEIN, TOTAL (test code = 6.9 G/DL 2228) ALBUMIN (test code = 2201) 4.6 G/DL CALC GLOBULIN (test code = 2.3 G/DL 2240) CALC A/G RATIO (test code = 2.0 RATIO 4) BILIRUBIN, TOTAL (test code = 0.5 MG/DL 2206) ALKALINE PHOSPHATASE (test 112 U/L code = 2204) AST (test code = 2218) 44 U/L ALT (test code = 2219) 34 U/L COMPREHENSIVE METABOLIC [id number] 00:00:00 Test Item Value Reference Range Interpretation Comments GLUCOSE (test code = 2217) 86 MG/DL BUN (test code = 2208) 14 MG/DL CREATININE (test code = 2214) 1.03 MG/DL eGFR AMER. (test code 70 ML/MIN/1.73 = 11459) eGFR NON- AMER. (test 60 ML/MIN/1.73 code = 42746) CALC BUN/CREAT (test code = 14 RATIO 2235) SODIUM (test code = 2231) 142 MEQ/L POTASSIUM (test code = 2228) 4.6 MEQ/L CHLORIDE (test code = 2215) 103 MEQ/L CARBON DIOXIDE (test code = 28 MEQ/L 2206) CALCIUM (test code = 2209) 9.3 MG/DL PROTEIN, TOTAL (test code = 6.9 G/DL 2229) ALBUMIN (test code = 2201) 4.6 G/DL CALC GLOBULIN (test code = 2.3 G/DL 2240) CALC A/G RATIO (test code = 2.0 RATIO 2234) BILIRUBIN, TOTAL (test code = 0.5 MG/DL 2207) ALKALINE PHOSPHATASE (test 112 U/L code = 2204) AST (test code = 2218) 44 U/L ALT (test code = 2219) 34 U/L CBC W/AUTO [id number] 00:00:00 Test Item Value Reference Range Interpretation Comments WBC (test code = 1001) 6.2 K/UL RBC (test code = 1002) 4.72 M/UL HEMOGLOBIN (test code = 1003) 12.5 G/DL HEMATOCRIT (test code = 1004) 39.1 % MCV (test code = 1005) 82.8 fL MCH (test code = 1006) 26.5 PG MCHC (test code = 1007) 32.0 G/DL RDW (test code = 1038) 13.9 % NEUTROPHILS (test code = 1008) 65.3 % LYMPHOCYTES (test code = 1010) 21.2 % MONOCYTES (test code = 1011) 10.3 % EOSINOPHILS (test code = 1012) 1.9 % BASOPHILS (test code = 1013) 1.1 % IMMATURE GRANULOCYTES (test 0.2 % code = 1036) NUCLEATED RBCS (test code = 0.0 /100WBC'S 1065) PLATELET COUNT (test code = 273 K/UL 1015) ABSOLUTE NEUTROPHILS (test code 4.06 K/UL = 1066) ABSOLUTE LYMPHOCYTES (test code 1.32 K/UL = 1067) ABSOLUTE MONOCYTES (test code = 0.64 K/UL 1068) ABSOLUTE EOSINOPHILS (test code 0.12 K/UL = 1040) ABSOLUTE BASOPHILS (test code = 0.07 K/UL 1069) ABS IMMATURE GRANULOCYTES (test 0.01 K/UL code = 1020) ABS NUCLEATED RBCS (test code = 0.00 K/UL 24918) CBC W/AUTO [id number] 00:00:00 Test Item Value Reference Range Interpretation Comments WBC (test code = 1001) 6.2 K/UL RBC (test code = 1002) 4.72 M/UL HEMOGLOBIN (test code = 1003) 12.5 G/DL HEMATOCRIT (test code = 1004) 39.1 % MCV (test code = 1005) 82.8 fL MCH (test code = 1006) 26.5 PG MCHC (test code = 1007) 32.0 G/DL RDW (test code = 1038) 13.9 % NEUTROPHILS (test code = 1008) 65.3 % LYMPHOCYTES (test code = 1010) 21.2 % MONOCYTES (test code = 1011) 10.3 % EOSINOPHILS (test code = 1012) 1.9 % BASOPHILS (test code = 1013) 1.1 % IMMATURE GRANULOCYTES (test 0.2 % code = 1036) NUCLEATED RBCS (test code = 0.0 /100WBC'S 1065) PLATELET COUNT (test code = 273 K/UL 1015) ABSOLUTE NEUTROPHILS (test code 4.06 K/UL = 1066) ABSOLUTE LYMPHOCYTES (test code 1.32 K/UL = 1067) ABSOLUTE MONOCYTES (test code = 0.64 K/UL 1068) ABSOLUTE EOSINOPHILS (test code 0.12 K/UL = 1040) ABSOLUTE BASOPHILS (test code = 0.07 K/UL 1069) ABS IMMATURE GRANULOCYTES (test 0.01 K/UL code = 1020) ABS NUCLEATED RBCS (test code = 0.00 K/UL 02400) CBC W/AUTO [id number] 00:00:00 Test Item Value Reference Range Interpretation Comments WBC (test code = 1001) 6.2 K/UL RBC (test code = 1002) 4.72 M/UL HEMOGLOBIN (test code = 1003) 12.5 G/DL HEMATOCRIT (test code = 1004) 39.1 % MCV (test code = 1005) 82.8 fL MCH (test code = 1006) 26.5 PG MCHC (test code = 1007) 32.0 G/DL RDW (test code = 1038) 13.9 % NEUTROPHILS (test code = 1008) 65.3 % LYMPHOCYTES (test code = 1010) 21.2 % MONOCYTES (test code = 1011) 10.3 % EOSINOPHILS (test code = 1012) 1.9 % BASOPHILS (test code = 1013) 1.1 % IMMATURE GRANULOCYTES (test 0.2 % code = 1036) NUCLEATED RBCS (test code = 0.0 /100WBC'S 1065) PLATELET COUNT (test code = 273 K/UL 1015) ABSOLUTE NEUTROPHILS (test code 4.06 K/UL = 1066) ABSOLUTE LYMPHOCYTES (test code 1.32 K/UL = 1067) ABSOLUTE MONOCYTES (test code = 0.64 K/UL 1068) ABSOLUTE EOSINOPHILS (test code 0.12 K/UL = 1040) ABSOLUTE BASOPHILS (test code = 0.07 K/UL 1069) ABS IMMATURE GRANULOCYTES (test 0.01 K/UL code = 1020) ABS NUCLEATED RBCS (test code = 0.00 K/UL 45308) RHEUMATOID FACTOR, [id number] 00:00:00 Test Item Value Reference Range Interpretation Comments RHEUMATOID FACTOR, QUANT (test code <10 IU/ML = 3502) RHEUMATOID FACTOR, [id number] 00:00:00 Test Item Value Reference Range Interpretation Comments RHEUMATOID FACTOR, QUANT (test code <10 IU/ML = 3502) RHEUMATOID FACTOR, [id number] 00:00:00 Test Item Value Reference Range Interpretation Comments RHEUMATOID FACTOR, QUANT (test code <10 IU/ML = 3502) C-REACTIVE [id number] 00:00:00 Test Item Value Reference Range Interpretation Comments C-REACTIVE PROTEIN (test code = <0.3 MG/DL 3513) C-REACTIVE [id number] 00:00:00 Test Item Value Reference Range Interpretation Comments C-REACTIVE PROTEIN (test code = <0.3 MG/DL 3513) RACHEL (ANTI-NUCLEAR AB) WITH REFLEX [id number] 00:00:00 Test Item Value Reference Range Interpretation Comments ANTI-NUCLEAR ANTIBODIES (test code = POSITIVE 3506) RACHEL (ANTI-NUCLEAR AB) WITH REFLEX [id number] 00:00:00 Test Item Value Reference Range Interpretation Comments ANTI-NUCLEAR ANTIBODIES (test code = POSITIVE 3506) SEDIMENTATION [id number] 00:00:00 Test Item Value Reference Range Interpretation Comments SEDIMENTATION RATE (test code = 5 MM/HOUR 1017) SEDIMENTATION [id number] 00:00:00 Test Item Value Reference Range Interpretation Comments SEDIMENTATION RATE (test code = 5 MM/HOUR 1017) URIC [id number] 00:00:00 Test Item Value Reference Range Interpretation Comments URIC ACID (test code = 2233) 4.9 MG/DL URIC [id number] 00:00:00 Test Item Value Reference Range Interpretation Comments URIC ACID (test code = 2233) 4.9 MG/DL [id number] 00:00:00 Test Item Value Reference Range Interpretation Comments TSH, THIRD GENERATION (test code 0.501 UIU/ML = 2821) [id number] 00:00:00 Test Item Value Reference Range Interpretation Comments TSH, THIRD GENERATION (test code 0.501 UIU/ML = 2821) [id number] 00:00:00 Test Item Value Reference Range Interpretation Comments TSH, THIRD GENERATION (test code 0.501 UIU/ML = 2821) COMPREHENSIVE METABOLIC [id number] 00:00:00 Test Item Value Reference Range Interpretation Comments GLUCOSE (test code = 2217) 86 MG/DL BUN (test code = 2208) 14 MG/DL CREATININE (test code = 2214) 1.03 MG/DL eGFR AMER. (test code 70 ML/MIN/1.73 = 12017) eGFR NON- AMER. (test 60 ML/MIN/1.73 code = 50074) CALC BUN/CREAT (test code = 14 RATIO 2235) SODIUM (test code = 2231) 142 MEQ/L POTASSIUM (test code = 2228) 4.6 MEQ/L CHLORIDE (test code = 2215) 103 MEQ/L CARBON DIOXIDE (test code = 28 MEQ/L 2206) CALCIUM (test code = 2209) 9.3 MG/DL PROTEIN, TOTAL (test code = 6.9 G/DL 2228) ALBUMIN (test code = 2201) 4.6 G/DL CALC GLOBULIN (test code = 2.3 G/DL 2240) CALC A/G RATIO (test code = 2.0 RATIO 2234) BILIRUBIN, TOTAL (test code = 0.5 MG/DL 2206) ALKALINE PHOSPHATASE (test 112 U/L code = 2204) AST (test code = 2218) 44 U/L ALT (test code = 2219) 34 U/L [id number] 00:00:00 Test Item Value Reference Range Interpretation Comments TSH, THIRD GENERATION (test code 1.460 UIU/ML = 2821) [id number] 00:00:00 Test Item Value Reference Range Interpretation Comments TSH, THIRD GENERATION (test code 1.460 UIU/ML = 2821) [id number] 00:00:00 Test Item Value Reference Range Interpretation Comments TSH, THIRD GENERATION (test code 1.460 UIU/ML = 2821) [id number] 00:00:00 Test Item Value Reference Range Interpretation Comments TSH, THIRD GENERATION (test code 1.460 UIU/ML = 2821) [id number] 00:00:00 Test Item Value Reference Range Interpretation Comments TSH, THIRD GENERATION (test code 1.460 UIU/ML = 2821) [id number] 00:00:00 Test Item Value Reference Range Interpretation Comments TSH, THIRD GENERATION (test code 1.460 UIU/ML = 2821) [id number] 00:00:00 Test Item Value Reference Range Interpretation Comments TSH, THIRD GENERATION (test >100.000 UIU/ML code = 2821) [id number] 00:00:00 Test Item Value Reference Range Interpretation Comments TSH, THIRD GENERATION (test >100.000 UIU/ML code = 2821) VITAMIN D, 25 [id number] 00:00:00 Test Item Value Reference Range Interpretation Comments VITAMIN D, 25 OH (test code = 4958) 24 NG/ML VITAMIN D, 25 [id number] 00:00:00 Test Item Value Reference Range Interpretation Comments VITAMIN D, 25 OH (test code = 4958) 24 NG/ML CBC W/AUTO [id number] 00:00:00 Test Item Value Reference Range Interpretation Comments WBC (test code = 1001) 7.7 K/UL RBC (test code = 1002) 4.52 M/UL HEMOGLOBIN (test code = 1003) 12.3 G/DL HEMATOCRIT (test code = 1004) 37.3 % MCV (test code = 1005) 82.5 fL MCH (test code = 1006) 27.2 PG MCHC (test code = 1007) 33.0 G/DL RDW (test code = 1038) 14.7 % NEUTROPHILS (test code = 1008) 62.9 % LYMPHOCYTES (test code = 1010) 23.3 % MONOCYTES (test code = 1011) 9.7 % EOSINOPHILS (test code = 1012) 3.5 % BASOPHILS (test code = 1013) 0.6 % PLATELET COUNT (test code = 1015) 301 K/UL CBC W/AUTO [id number] 00:00:00 Test Item Value Reference Range Interpretation Comments WBC (test code = 1001) 7.7 K/UL RBC (test code = 1002) 4.52 M/UL HEMOGLOBIN (test code = 1003) 12.3 G/DL HEMATOCRIT (test code = 1004) 37.3 % MCV (test code = 1005) 82.5 fL MCH (test code = 1006) 27.2 PG MCHC (test code = 1007) 33.0 G/DL RDW (test code = 1038) 14.7 % NEUTROPHILS (test code = 1008) 62.9 % LYMPHOCYTES (test code = 1010) 23.3 % MONOCYTES (test code = 1011) 9.7 % EOSINOPHILS (test code = 1012) 3.5 % BASOPHILS (test code = 1013) 0.6 % PLATELET COUNT (test code = 1015) 301 K/UL CBC W/AUTO [id number] 00:00:00 Test Item Value Reference Range Interpretation Comments WBC (test code = 1001) 7.7 K/UL RBC (test code = 1002) 4.52 M/UL HEMOGLOBIN (test code = 1003) 12.3 G/DL HEMATOCRIT (test code = 1004) 37.3 % MCV (test code = 1005) 82.5 fL MCH (test code = 1006) 27.2 PG MCHC (test code = 1007) 33.0 G/DL RDW (test code = 1038) 14.7 % NEUTROPHILS (test code = 1008) 62.9 % LYMPHOCYTES (test code = 1010) 23.3 % MONOCYTES (test code = 1011) 9.7 % EOSINOPHILS (test code = 1012) 3.5 % BASOPHILS (test code = 1013) 0.6 % PLATELET COUNT (test code = 1015) 301 K/UL COMPREHENSIVE METABOLIC [id number] 00:00:00 Test Item Value Reference Range Interpretation Comments GLUCOSE (test code = 2217) 86 MG/DL BUN (test code = 2208) 14 MG/DL CREATININE (test code = 2214) 1.00 MG/DL eGFR AMER. (test code 72 ML/MIN/1.73 = 12427) eGFR NON- AMER. (test 62 ML/MIN/1.73 code = 35531) CALC BUN/CREAT (test code = 14 RATIO 2235) SODIUM (test code = 2231) 144 MEQ/L POTASSIUM (test code = 2228) 3.9 MEQ/L CHLORIDE (test code = 2215) 104 MEQ/L CARBON DIOXIDE (test code = 30 MEQ/L 2206) CALCIUM (test code = 2209) 9.1 MG/DL PROTEIN, TOTAL (test code = 6.9 G/DL 2228) ALBUMIN (test code = 2201) 4.6 G/DL CALC GLOBULIN (test code = 2.3 G/DL 2240) CALC A/G RATIO (test code = 2.0 RATIO 2234) BILIRUBIN, TOTAL (test code = 0.2 MG/DL 2206) ALKALINE PHOSPHATASE (test 95 U/L code = 2204) AST (test code = 2218) 30 U/L ALT (test code = 2219) 20 U/L COMPREHENSIVE METABOLIC [id number] 00:00:00 Test Item Value Reference Range Interpretation Comments GLUCOSE (test code = 2217) 86 MG/DL BUN (test code = 2208) 14 MG/DL CREATININE (test code = 2214) 1.00 MG/DL eGFR AMER. (test code 72 ML/MIN/1.73 = 62090) eGFR NON- AMER. (test 62 ML/MIN/1.73 code = 67155) CALC BUN/CREAT (test code = 14 RATIO 2235) SODIUM (test code = 2231) 144 MEQ/L POTASSIUM (test code = 2228) 3.9 MEQ/L CHLORIDE (test code = 2215) 104 MEQ/L CARBON DIOXIDE (test code = 30 MEQ/L 2206) CALCIUM (test code = 2209) 9.1 MG/DL PROTEIN, TOTAL (test code = 6.9 G/DL 2228) ALBUMIN (test code = 2201) 4.6 G/DL CALC GLOBULIN (test code = 2.3 G/DL 2240) CALC A/G RATIO (test code = 2.0 RATIO 2234) BILIRUBIN, TOTAL (test code = 0.2 MG/DL 2206) ALKALINE PHOSPHATASE (test 95 U/L code = 2204) AST (test code = 2218) 30 U/L ALT (test code = 2219) 20 U/L [id number] 00:00:00 Test Item Value Reference Range Interpretation Comments TSH, THIRD GENERATION (test >100.000 UIU/ML code = 2821) [id number] 00:00:00 Test Item Value Reference Range Interpretation Comments TSH, THIRD GENERATION (test >100.000 UIU/ML code = 2821) [id number] 00:00:00 Test Item Value Reference Range Interpretation Comments TSH, THIRD GENERATION (test >100.000 UIU/ML code = 2821) VITAMIN D, 25 [id number] 00:00:00 Test Item Value Reference Range Interpretation Comments VITAMIN D, 25 OH (test code = 4958) 24 NG/ML VITAMIN D, 25 [id number] 00:00:00 Test Item Value Reference Range Interpretation Comments VITAMIN D, 25 OH (test code = 4958) 24 NG/ML CBC W/AUTO [id number] 00:00:00 Test Item Value Reference Range Interpretation Comments WBC (test code = 1001) 7.7 K/UL RBC (test code = 1002) 4.52 M/UL HEMOGLOBIN (test code = 1003) 12.3 G/DL HEMATOCRIT (test code = 1004) 37.3 % MCV (test code = 1005) 82.5 fL MCH (test code = 1006) 27.2 PG MCHC (test code = 1007) 33.0 G/DL RDW (test code = 1038) 14.7 % NEUTROPHILS (test code = 1008) 62.9 % LYMPHOCYTES (test code = 1010) 23.3 % MONOCYTES (test code = 1011) 9.7 % EOSINOPHILS (test code = 1012) 3.5 % BASOPHILS (test code = 1013) 0.6 % PLATELET COUNT (test code = 1015) 301 K/UL CBC W/AUTO [id number] 00:00:00 Test Item Value Reference Range Interpretation Comments WBC (test code = 1001) 7.7 K/UL RBC (test code = 1002) 4.52 M/UL HEMOGLOBIN (test code = 1003) 12.3 G/DL HEMATOCRIT (test code = 1004) 37.3 % MCV (test code = 1005) 82.5 fL MCH (test code = 1006) 27.2 PG MCHC (test code = 1007) 33.0 G/DL RDW (test code = 1038) 14.7 % NEUTROPHILS (test code = 1008) 62.9 % LYMPHOCYTES (test code = 1010) 23.3 % MONOCYTES (test code = 1011) 9.7 % EOSINOPHILS (test code = 1012) 3.5 % BASOPHILS (test code = 1013) 0.6 % PLATELET COUNT (test code = 1015) 301 K/UL CBC W/AUTO [id number] 00:00:00 Test Item Value Reference Range Interpretation Comments WBC (test code = 1001) 7.7 K/UL RBC (test code = 1002) 4.52 M/UL HEMOGLOBIN (test code = 1003) 12.3 G/DL HEMATOCRIT (test code = 1004) 37.3 % MCV (test code = 1005) 82.5 fL MCH (test code = 1006) 27.2 PG MCHC (test code = 1007) 33.0 G/DL RDW (test code = 1038) 14.7 % NEUTROPHILS (test code = 1008) 62.9 % LYMPHOCYTES (test code = 1010) 23.3 % MONOCYTES (test code = 1011) 9.7 % EOSINOPHILS (test code = 1012) 3.5 % BASOPHILS (test code = 1013) 0.6 % PLATELET COUNT (test code = 1015) 301 K/UL COMPREHENSIVE METABOLIC [id number] 00:00:00 Test Item Value Reference Range Interpretation Comments GLUCOSE (test code = 2217) 86 MG/DL BUN (test code = 2208) 14 MG/DL CREATININE (test code = 2214) 1.00 MG/DL eGFR AMER. (test code 72 ML/MIN/1.73 = 03035) eGFR NON- AMER. (test 62 ML/MIN/1.73 code = 25655) CALC BUN/CREAT (test code = 14 RATIO 2235) SODIUM (test code = 2231) 144 MEQ/L POTASSIUM (test code = 2228) 3.9 MEQ/L CHLORIDE (test code = 2215) 104 MEQ/L CARBON DIOXIDE (test code = 30 MEQ/L 2205) CALCIUM (test code = 2209) 9.1 MG/DL PROTEIN, TOTAL (test code = 6.9 G/DL 2229) ALBUMIN (test code = 2201) 4.6 G/DL CALC GLOBULIN (test code = 2.3 G/DL 2240) CALC A/G RATIO (test code = 2.0 RATIO 2234) BILIRUBIN, TOTAL (test code = 0.2 MG/DL 220) ALKALINE PHOSPHATASE (test 95 U/L code = 2204) AST (test code = 2218) 30 U/L ALT (test code = 2219) 20 U/L COMPREHENSIVE METABOLIC [id number] 00:00:00 Test Item Value Reference Range Interpretation Comments GLUCOSE (test code = 2217) 86 MG/DL BUN (test code = 2208) 14 MG/DL CREATININE (test code = 2214) 1.00 MG/DL eGFR AMER. (test code 72 ML/MIN/1.73 = 93179) eGFR NON- AMER. (test 62 ML/MIN/1.73 code = 05577) CALC BUN/CREAT (test code = 14 RATIO 2235) SODIUM (test code = 2231) 144 MEQ/L POTASSIUM (test code = 2228) 3.9 MEQ/L CHLORIDE (test code = 2215) 104 MEQ/L CARBON DIOXIDE (test code = 30 MEQ/L 220) CALCIUM (test code = 2209) 9.1 MG/DL PROTEIN, TOTAL (test code = 6.9 G/DL 2228) ALBUMIN (test code = 2201) 4.6 G/DL CALC GLOBULIN (test code = 2.3 G/DL 2240) CALC A/G RATIO (test code = 2.0 RATIO 2234) BILIRUBIN, TOTAL (test code = 0.2 MG/DL 2206) ALKALINE PHOSPHATASE (test 95 U/L code = 2204) AST (test code = 2218) 30 U/L ALT (test code = 2219) 20 U/L [id number] 00:00:00 Test Item Value Reference Range Interpretation Comments TSH, THIRD GENERATION (test >100.000 UIU/ML code = 2821) XR SHOULDER 2+ VW [id number] 20:06:12 No acute bony abnormality. Mild acromioclavicular joint osteoarthrosis. Preliminary Report Dictatedby Resident: Tobin Smiley I, Jesús Claros MD., have reviewed this study and agree with the abovereport.EXAM: XR SHOULDER 2+ VW LEFT HISTORY: 54 year old female with left shoulder pain Please do the followingviews: True AP, Supraspinatus outlet, and Zanca Views COMPARISON: None FINDINGS: Radiographs of the left shoulder demonstrate no acute fracture ordislocation. Mild osteophytosis and subchondral sclerosis of theacromioclavicular joint. Greater tuberosity subcortical cyst is seen.Osteopenia is noted.No soft tissue abnormality is seen. [facility], Radiant Results Inft User - 09/19/2019 3:07 PM CDTEXAM: XRSHOULDER 2+ VW LEFTHISTORY: 54 year old female with left shoulder pain Please do the followingviews:True AP, Supraspinatus outlet, and Zanca ViewsCOMPARISON: NoneFINDINGS:Radiographs of the left shoulder demonstrate no acute fracture ordislocation. Mild osteophytosis and subchondral sclerosis of theacromioclavicular joint. Greater tuberosity subcortical cyst is seen.Osteopenia is noted. No soft tissue abnormality is seen. IMPRESSIONNo acute bony abnormality.Mild acromioclavicular joint osteoarthrosis.Preliminary Report Dictated by Resident: Jesús Davidson MD., have reviewed this study and agree with the abovereport.[facility] [id number] 00:00:00 Test Item Value Reference Range Interpretation Comments WBC (test code = 1001) 5.4 K/UL RBC (test code = 1002) 3.78 M/UL HEMOGLOBIN (test code = 1003) 11.6 G/DL HEMATOCRIT (test code = 1004) 33.3 % MCV (test code = 1005) 88.1 fL MCH (test code = 1006) 30.7 PG MCHC (test code = 1007) 34.8 G/DL RDW (test code = 1038) 13.7 % NEUTROPHILS (test code = 1008) 60.7 % LYMPHOCYTES (test code = 1010) 21.9 % MONOCYTES (test code = 1011) 11.8 % EOSINOPHILS (test code = 1012) 5.0 % BASOPHILS (test code = 1013) 0.6 % PLATELET COUNT (test code = 1015) 249 K/UL RHEUMATOID FACTOR, [id number] 00:00:00 Test Item Value Reference Range Interpretation Comments RHEUMATOID FACTOR, QUANT (test code <10 IU/ML = 3502) RHEUMATOID FACTOR, [id number] 00:00:00 Test Item Value Reference Range Interpretation Comments RHEUMATOID FACTOR, QUANT (test code <10 IU/ML = 3502) RHEUMATOID FACTOR, [id number] 00:00:00 Test Item Value Reference Range Interpretation Comments RHEUMATOID FACTOR, QUANT (test code <10 IU/ML = 3502) VITAMIN D, 25 [id number] 00:00:00 Test Item Value Reference Range Interpretation Comments VITAMIN D, 25 OH (test code = 4958) 24 NG/ML VITAMIN D, 25 [id number] 00:00:00 Test Item Value Reference Range Interpretation Comments VITAMIN D, 25 OH (test code = 4958) 24 NG/ML [id number] 00:00:00 Test Item Value Reference Range Interpretation Comments MAGNESIUM (test code = 2226) 2.0 MG/DL [id number] 00:00:00 Test Item Value Reference Range Interpretation Comments MAGNESIUM (test code = 2226) 2.0 MG/DL [id number] 00:00:00 Test Item Value Reference Range Interpretation Comments MAGNESIUM (test code = 2226) 2.0 MG/DL [id number] 00:00:00 Test Item Value Reference Range Interpretation Comments TSH, THIRD GENERATION (test code 6.220 UIU/ML = 2821) [id number] 00:00:00 Test Item Value Reference Range Interpretation Comments TSH, THIRD GENERATION (test code 6.220 UIU/ML = 2821) [id number] 00:00:00 Test Item Value Reference Range Interpretation Comments TSH, THIRD GENERATION (test code 6.220 UIU/ML = 2821) RACHEL (ANTI-NUCLEAR AB) WITH REFLEX [id number] 00:00:00 Test Item Value Reference Range Interpretation Comments ANTI-NUCLEAR ANTIBODIES (test code = NEGATIVE 3506) RACHEL (ANTI-NUCLEAR AB) WITH REFLEX [id number] 00:00:00 Test Item Value Reference Range Interpretation Comments ANTI-NUCLEAR ANTIBODIES (test code = NEGATIVE 3506) COMPREHENSIVE METABOLIC [id number] 00:00:00 Test Item Value Reference Range Interpretation Comments GLUCOSE (test code = 2217) 79 MG/DL BUN (test code = 2208) 17 MG/DL CREATININE (test code = 2214) 0.78 MG/DL eGFR AMER. (test code 98 ML/MIN/1.73 = 34408) eGFR NON- AMER. (test 85 ML/MIN/1.73 code = 94435) CALC BUN/CREAT (test code = 22 RATIO 2235) SODIUM (test code = 2231) 142 MEQ/L POTASSIUM (test code = 2228) 3.9 MEQ/L CHLORIDE (test code = 2215) 105 MEQ/L CARBON DIOXIDE (test code = 29 MEQ/L 2205) CALCIUM (test code = 2209) 9.1 MG/DL PROTEIN, TOTAL (test code = 6.0 G/DL 2228) ALBUMIN (test code = 2201) 4.1 G/DL CALC GLOBULIN (test code = 1.9 G/DL 2240) CALC A/G RATIO (test code = 2.2 RATIO 2234) BILIRUBIN, TOTAL (test code = 0.3 MG/DL 2206) ALKALINE PHOSPHATASE (test 109 U/L code = 2204) AST (test code = 2218) 23 U/L ALT (test code = 2219) 18 U/L COMPREHENSIVE METABOLIC [id number] 00:00:00 Test Item Value Reference Range Interpretation Comments GLUCOSE (test code = 2217) 79 MG/DL BUN (test code = 2208) 17 MG/DL CREATININE (test code = 2214) 0.78 MG/DL eGFR AMER. (test code 98 ML/MIN/1.73 = 79989) eGFR NON- AMER. (test 85 ML/MIN/1.73 code = 59797) CALC BUN/CREAT (test code = 22 RATIO 2235) SODIUM (test code = 2231) 142 MEQ/L POTASSIUM (test code = 2228) 3.9 MEQ/L CHLORIDE (test code = 2215) 105 MEQ/L CARBON DIOXIDE (test code = 29 MEQ/L 2205) CALCIUM (test code = 2209) 9.1 MG/DL PROTEIN, TOTAL (test code = 6.0 G/DL 2228) ALBUMIN (test code = 2201) 4.1 G/DL CALC GLOBULIN (test code = 1.9 G/DL 2240) CALC A/G RATIO (test code = 2.2 RATIO 2234) BILIRUBIN, TOTAL (test code = 0.3 MG/DL 2207) ALKALINE PHOSPHATASE (test 109 U/L code = 2204) AST (test code = 2218) 23 U/L ALT (test code = 2219) 18 U/L CBC W/AUTO [id number] 00:00:00 Test Item Value Reference Range Interpretation Comments WBC (test code = 1001) 5.4 K/UL RBC (test code = 1002) 3.78 M/UL HEMOGLOBIN (test code = 1003) 11.6 G/DL HEMATOCRIT (test code = 1004) 33.3 % MCV (test code = 1005) 88.1 fL MCH (test code = 1006) 30.7 PG MCHC (test code = 1007) 34.8 G/DL RDW (test code = 1038) 13.7 % NEUTROPHILS (test code = 1008) 60.7 % LYMPHOCYTES (test code = 1010) 21.9 % MONOCYTES (test code = 1011) 11.8 % EOSINOPHILS (test code = 1012) 5.0 % BASOPHILS (test code = 1013) 0.6 % PLATELET COUNT (test code = 1015) 249 K/UL CBC W/AUTO [id number] 00:00:00 Test Item Value Reference Range Interpretation Comments WBC (test code = 1001) 5.4 K/UL RBC (test code = 1002) 3.78 M/UL HEMOGLOBIN (test code = 1003) 11.6 G/DL HEMATOCRIT (test code = 1004) 33.3 % MCV (test code = 1005) 88.1 fL MCH (test code = 1006) 30.7 PG MCHC (test code = 1007) 34.8 G/DL RDW (test code = 1038) 13.7 % NEUTROPHILS (test code = 1008) 60.7 % LYMPHOCYTES (test code = 1010) 21.9 % MONOCYTES (test code = 1011) 11.8 % EOSINOPHILS (test code = 1012) 5.0 % BASOPHILS (test code = 1013) 0.6 % PLATELET COUNT (test code = 1015) 249 K/UL CBC W/AUTO [id number] 00:00:00 Test Item Value Reference Range Interpretation Comments WBC (test code = 1001) 5.4 K/UL RBC (test code = 1002) 3.78 M/UL HEMOGLOBIN (test code = 1003) 11.6 G/DL HEMATOCRIT (test code = 1004) 33.3 % MCV (test code = 1005) 88.1 fL MCH (test code = 1006) 30.7 PG MCHC (test code = 1007) 34.8 G/DL RDW (test code = 1038) 13.7 % NEUTROPHILS (test code = 1008) 60.7 % LYMPHOCYTES (test code = 1010) 21.9 % MONOCYTES (test code = 1011) 11.8 % EOSINOPHILS (test code = 1012) 5.0 % BASOPHILS (test code = 1013) 0.6 % PLATELET COUNT (test code = 1015) 249 K/UL RHEUMATOID FACTOR, [id number] 00:00:00 Test Item Value Reference Range Interpretation Comments RHEUMATOID FACTOR, QUANT (test code <10 IU/ML = 3502) RHEUMATOID FACTOR, [id number] 00:00:00 Test Item Value Reference Range Interpretation Comments RHEUMATOID FACTOR, QUANT (test code <10 IU/ML = 3502) RHEUMATOID FACTOR, [id number] 00:00:00 Test Item Value Reference Range Interpretation Comments RHEUMATOID FACTOR, QUANT (test code <10 IU/ML = 3502) VITAMIN D, 25 [id number] 00:00:00 Test Item Value Reference Range Interpretation Comments VITAMIN D, 25 OH (test code = 4958) 24 NG/ML VITAMIN D, 25 [id number] 00:00:00 Test Item Value Reference Range Interpretation Comments VITAMIN D, 25 OH (test code = 4958) 24 NG/ML [id number] 00:00:00 Test Item Value Reference Range Interpretation Comments MAGNESIUM (test code = 2226) 2.0 MG/DL [id number] 00:00:00 Test Item Value Reference Range Interpretation Comments MAGNESIUM (test code = 2226) 2.0 MG/DL [id number] 00:00:00 Test Item Value Reference Range Interpretation Comments MAGNESIUM (test code = 2226) 2.0 MG/DL [id number] 00:00:00 Test Item Value Reference Range Interpretation Comments TSH, THIRD GENERATION (test code 6.220 UIU/ML = 2821) [id number] 00:00:00 Test Item Value Reference Range Interpretation Comments TSH, THIRD GENERATION (test code 6.220 UIU/ML = 2821) [id number] 00:00:00 Test Item Value Reference Range Interpretation Comments TSH, THIRD GENERATION (test code 6.220 UIU/ML = 2821) RACHEL (ANTI-NUCLEAR AB) WITH REFLEX [id number] 00:00:00 Test Item Value Reference Range Interpretation Comments ANTI-NUCLEAR ANTIBODIES (test code = NEGATIVE 3506) RACHEL (ANTI-NUCLEAR AB) WITH REFLEX [id number] 00:00:00 Test Item Value Reference Range Interpretation Comments ANTI-NUCLEAR ANTIBODIES (test code = NEGATIVE 3506) COMPREHENSIVE METABOLIC [id number] 00:00:00 Test Item Value Reference Range Interpretation Comments GLUCOSE (test code = 2217) 79 MG/DL BUN (test code = 2208) 17 MG/DL CREATININE (test code = 2214) 0.78 MG/DL eGFR AMER. (test code 98 ML/MIN/1.73 = 03755) eGFR NON- AMER. (test 85 ML/MIN/1.73 code = 26808) CALC BUN/CREAT (test code = 22 RATIO 2235) SODIUM (test code = 2231) 142 MEQ/L POTASSIUM (test code = 2228) 3.9 MEQ/L CHLORIDE (test code = 2215) 105 MEQ/L CARBON DIOXIDE (test code = 29 MEQ/L 2205) CALCIUM (test code = 2209) 9.1 MG/DL PROTEIN, TOTAL (test code = 6.0 G/DL 2228) ALBUMIN (test code = 2201) 4.1 G/DL CALC GLOBULIN (test code = 1.9 G/DL 2240) CALC A/G RATIO (test code = 2.2 RATIO 2234) BILIRUBIN, TOTAL (test code = 0.3 MG/DL 2206) ALKALINE PHOSPHATASE (test 109 U/L code = 2204) AST (test code = 2218) 23 U/L ALT (test code = 2219) 18 U/L COMPREHENSIVE METABOLIC [id number] 00:00:00 Test Item Value Reference Range Interpretation Comments GLUCOSE (test code = 2217) 79 MG/DL BUN (test code = 2208) 17 MG/DL CREATININE (test code = 2214) 0.78 MG/DL eGFR AMER. (test code 98 ML/MIN/1.73 = 31376) eGFR NON- AMER. (test 85 ML/MIN/1.73 code = 77894) CALC BUN/CREAT (test code = 22 RATIO 2235) SODIUM (test code = 2231) 142 MEQ/L POTASSIUM (test code = 2228) 3.9 MEQ/L CHLORIDE (test code = 2215) 105 MEQ/L CARBON DIOXIDE (test code = 29 MEQ/L 2205) CALCIUM (test code = 2209) 9.1 MG/DL PROTEIN, TOTAL (test code = 6.0 G/DL 2228) ALBUMIN (test code = 2201) 4.1 G/DL CALC GLOBULIN (test code = 1.9 G/DL 2239) CALC A/G RATIO (test code = 2.2 RATIO 2233) BILIRUBIN, TOTAL (test code = 0.3 MG/DL 2206) ALKALINE PHOSPHATASE (test 109 U/L code = 220) AST (test code = 2218) 23 U/L ALT (test code = 2219) 18 U/L CBC W/AUTO [id number] 00:00:00 Test Item Value Reference Range Interpretation Comments WBC (test code = 1001) 5.4 K/UL RBC (test code = 1002) 3.78 M/UL HEMOGLOBIN (test code = 1003) 11.6 G/DL HEMATOCRIT (test code = 1004) 33.3 % MCV (test code = 1005) 88.1 fL MCH (test code = 1006) 30.7 PG MCHC (test code = 1007) 34.8 G/DL RDW (test code = 1038) 13.7 % NEUTROPHILS (test code = 1008) 60.7 % LYMPHOCYTES (test code = 1010) 21.9 % MONOCYTES (test code = 1011) 11.8 % EOSINOPHILS (test code = 1012) 5.0 % BASOPHILS (test code = 1013) 0.6 % PLATELET COUNT (test code = 1015) 249 K/UL CBC W/AUTO [id number] 00:00:00 Test Item Value Reference Range Interpretation Comments WBC (test code = 1001) 5.4 K/UL RBC (test code = 1002) 3.78 M/UL HEMOGLOBIN (test code = 1003) 11.6 G/DL HEMATOCRIT (test code = 1004) 33.3 % MCV (test code = 1005) 88.1 fL MCH (test code = 1006) 30.7 PG MCHC (test code = 1007) 34.8 G/DL RDW (test code = 1038) 13.7 % NEUTROPHILS (test code = 1008) 60.7 % LYMPHOCYTES (test code = 1010) 21.9 % MONOCYTES (test code = 1011) 11.8 % EOSINOPHILS (test code = 1012) 5.0 % BASOPHILS (test code = 1013) 0.6 % PLATELET COUNT (test code = 1015) 249 K/UL [id number] 00:00:00 Test Item Value Reference Range Interpretation Comments LEVETIRACETAM (test code = 67379) 19.7 mcg/mL [id number] 00:00:00 Test Item Value Reference Range Interpretation Comments LAMOTRIGINE (test code = 32529) 6.2 mcg/mL [id number] 00:00:00 Test Item Value Reference Range Interpretation Comments LAMOTRIGINE (test code = 34358) 6.2 mcg/mL [id number] 00:00:00 Test Item Value Reference Range Interpretation Comments LEVETIRACETAM (test code = 70119) 19.7 mcg/mL [id number] 00:00:00 Test Item Value Reference Range Interpretation Comments LEVETIRACETAM (test code = 37963) 19.7 mcg/mL [id number] 00:00:00 Test Item Value Reference Range Interpretation Comments LAMOTRIGINE (test code = 70972) 6.2 mcg/mL [id number] 00:00:00 Test Item Value Reference Range Interpretation Comments LAMOTRIGINE (test code = 63901) 6.2 mcg/mL [id number] 00:00:00 Test Item Value Reference Range Interpretation Comments LEVETIRACETAM (test code = 00229) 19.7 mcg/mL CBC W/AUTO [id number] 00:00:00 Test Item Value Reference Range Interpretation Comments WBC (test code = 1001) 5.9 K/UL RBC (test code = 1002) 4.53 M/UL HEMOGLOBIN (test code = 1003) 13.6 G/DL HEMATOCRIT (test code = 1004) 40.3 % MCV (test code = 1005) 89.0 fL MCH (test code = 1006) 30.0 PG MCHC (test code = 1007) 33.7 G/DL RDW (test code = 1038) 12.1 % NEUTROPHILS (test code = 1008) 65.6 % LYMPHOCYTES (test code = 1010) 22.9 % MONOCYTES (test code = 1011) 7.2 % EOSINOPHILS (test code = 1012) 3.4 % BASOPHILS (test code = 1013) 0.9 % PLATELET COUNT (test code = 1015) 214 K/UL CBC W/AUTO [id number] 00:00:00 Test Item Value Reference Range Interpretation Comments WBC (test code = 1001) 5.9 K/UL RBC (test code = 1002) 4.53 M/UL HEMOGLOBIN (test code = 1003) 13.6 G/DL HEMATOCRIT (test code = 1004) 40.3 % MCV (test code = 1005) 89.0 fL MCH (test code = 1006) 30.0 PG MCHC (test code = 1007) 33.7 G/DL RDW (test code = 1038) 12.1 % NEUTROPHILS (test code = 1008) 65.6 % LYMPHOCYTES (test code = 1010) 22.9 % MONOCYTES (test code = 1011) 7.2 % EOSINOPHILS (test code = 1012) 3.4 % BASOPHILS (test code = 1013) 0.9 % PLATELET COUNT (test code = 1015) 214 K/UL CBC W/AUTO [id number] 00:00:00 Test Item Value Reference Range Interpretation Comments WBC (test code = 1001) 5.9 K/UL RBC (test code = 1002) 4.53 M/UL HEMOGLOBIN (test code = 1003) 13.6 G/DL HEMATOCRIT (test code = 1004) 40.3 % MCV (test code = 1005) 89.0 fL MCH (test code = 1006) 30.0 PG MCHC (test code = 1007) 33.7 G/DL RDW (test code = 1038) 12.1 % NEUTROPHILS (test code = 1008) 65.6 % LYMPHOCYTES (test code = 1010) 22.9 % MONOCYTES (test code = 1011) 7.2 % EOSINOPHILS (test code = 1012) 3.4 % BASOPHILS (test code = 1013) 0.9 % PLATELET COUNT (test code = 1015) 214 K/UL COMPREHENSIVE METABOLIC [id number] 00:00:00 Test Item Value Reference Range Interpretation Comments GLUCOSE (test code = 2217) 87 MG/DL BUN (test code = 2208) 15 MG/DL CREATININE (test code = 2214) 0.89 MG/DL eGFR AMER. (test code 84 ML/MIN/1.73 = 28683) eGFR NON- AMER. (test 72 ML/MIN/1.73 code = 90707) CALC BUN/CREAT (test code = 17 RATIO 2235) SODIUM (test code = 2231) 146 MEQ/L POTASSIUM (test code = 2228) 4.4 MEQ/L CHLORIDE (test code = 2215) 104 MEQ/L CARBON DIOXIDE (test code = 32 MEQ/L 2205) CALCIUM (test code = 2209) 9.8 MG/DL PROTEIN, TOTAL (test code = 6.9 G/DL 2228) ALBUMIN (test code = 2201) 4.5 G/DL CALC GLOBULIN (test code = 2.4 G/DL 2240) CALC A/G RATIO (test code = 1.9 RATIO 2234) BILIRUBIN, TOTAL (test code = 0.5 MG/DL 2206) ALKALINE PHOSPHATASE (test 101 U/L code = 2204) AST (test code = 2218) 21 U/L ALT (test code = 2219) 13 U/L COMPREHENSIVE METABOLIC [id number] 00:00:00 Test Item Value Reference Range Interpretation Comments GLUCOSE (test code = 2217) 87 MG/DL BUN (test code = 2208) 15 MG/DL CREATININE (test code = 2214) 0.89 MG/DL eGFR AMER. (test code 84 ML/MIN/1.73 = 12645) eGFR NON- AMER. (test 72 ML/MIN/1.73 code = 63171) CALC BUN/CREAT (test code = 17 RATIO 2235) SODIUM (test code = 2231) 146 MEQ/L POTASSIUM (test code = 2228) 4.4 MEQ/L CHLORIDE (test code = 2215) 104 MEQ/L CARBON DIOXIDE (test code = 32 MEQ/L 2205) CALCIUM (test code = 2209) 9.8 MG/DL PROTEIN, TOTAL (test code = 6.9 G/DL 2228) ALBUMIN (test code = 2201) 4.5 G/DL CALC GLOBULIN (test code = 2.4 G/DL 2240) CALC A/G RATIO (test code = 1.9 RATIO 2234) BILIRUBIN, TOTAL (test code = 0.5 MG/DL 2206) ALKALINE PHOSPHATASE (test 101 U/L code = 2204) AST (test code = 2218) 21 U/L ALT (test code = 2219) 13 U/L [id number] 00:00:00 Test Item Value Reference Range Interpretation Comments TSH, THIRD GENERATION (test code 0.300 UIU/ML = 2821) [id number] 00:00:00 Test Item Value Reference Range Interpretation Comments TSH, THIRD GENERATION (test code 0.300 UIU/ML = 2821) [id number] 00:00:00 Test Item Value Reference Range Interpretation Comments TSH, THIRD GENERATION (test code 0.300 UIU/ML = 2821) CBC W/AUTO [id number] 00:00:00 Test Item Value Reference Range Interpretation Comments WBC (test code = 1001) 5.9 K/UL RBC (test code = 1002) 4.53 M/UL HEMOGLOBIN (test code = 1003) 13.6 G/DL HEMATOCRIT (test code = 1004) 40.3 % MCV (test code = 1005) 89.0 fL MCH (test code = 1006) 30.0 PG MCHC (test code = 1007) 33.7 G/DL RDW (test code = 1038) 12.1 % NEUTROPHILS (test code = 1008) 65.6 % LYMPHOCYTES (test code = 1010) 22.9 % MONOCYTES (test code = 1011) 7.2 % EOSINOPHILS (test code = 1012) 3.4 % BASOPHILS (test code = 1013) 0.9 % PLATELET COUNT (test code = 1015) 214 K/UL CBC W/AUTO [id number] 00:00:00 Test Item Value Reference Range Interpretation Comments WBC (test code = 1001) 5.9 K/UL RBC (test code = 1002) 4.53 M/UL HEMOGLOBIN (test code = 1003) 13.6 G/DL HEMATOCRIT (test code = 1004) 40.3 % MCV (test code = 1005) 89.0 fL MCH (test code = 1006) 30.0 PG MCHC (test code = 1007) 33.7 G/DL RDW (test code = 1038) 12.1 % NEUTROPHILS (test code = 1008) 65.6 % LYMPHOCYTES (test code = 1010) 22.9 % MONOCYTES (test code = 1011) 7.2 % EOSINOPHILS (test code = 1012) 3.4 % BASOPHILS (test code = 1013) 0.9 % PLATELET COUNT (test code = 1015) 214 K/UL CBC W/AUTO [id number] 00:00:00 Test Item Value Reference Range Interpretation Comments WBC (test code = 1001) 5.9 K/UL RBC (test code = 1002) 4.53 M/UL HEMOGLOBIN (test code = 1003) 13.6 G/DL HEMATOCRIT (test code = 1004) 40.3 % MCV (test code = 1005) 89.0 fL MCH (test code = 1006) 30.0 PG MCHC (test code = 1007) 33.7 G/DL RDW (test code = 1038) 12.1 % NEUTROPHILS (test code = 1008) 65.6 % LYMPHOCYTES (test code = 1010) 22.9 % MONOCYTES (test code = 1011) 7.2 % EOSINOPHILS (test code = 1012) 3.4 % BASOPHILS (test code = 1013) 0.9 % PLATELET COUNT (test code = 1015) 214 K/UL COMPREHENSIVE METABOLIC [id number] 00:00:00 Test Item Value Reference Range Interpretation Comments GLUCOSE (test code = 2217) 87 MG/DL BUN (test code = 2208) 15 MG/DL CREATININE (test code = 2214) 0.89 MG/DL eGFR AMER. (test code 84 ML/MIN/1.73 = 56007) eGFR NON- AMER. (test 72 ML/MIN/1.73 code = 00405) CALC BUN/CREAT (test code = 17 RATIO 2235) SODIUM (test code = 2231) 146 MEQ/L POTASSIUM (test code = 2228) 4.4 MEQ/L CHLORIDE (test code = 2215) 104 MEQ/L CARBON DIOXIDE (test code = 32 MEQ/L 2205) CALCIUM (test code = 2209) 9.8 MG/DL PROTEIN, TOTAL (test code = 6.9 G/DL 222) ALBUMIN (test code = 2201) 4.5 G/DL CALC GLOBULIN (test code = 2.4 G/DL 2240) CALC A/G RATIO (test code = 1.9 RATIO 2234) BILIRUBIN, TOTAL (test code = 0.5 MG/DL 220) ALKALINE PHOSPHATASE (test 101 U/L code = 2204) AST (test code = 2218) 21 U/L ALT (test code = 2219) 13 U/L COMPREHENSIVE METABOLIC [id number] 00:00:00 Test Item Value Reference Range Interpretation Comments GLUCOSE (test code = 2217) 87 MG/DL BUN (test code = 2208) 15 MG/DL CREATININE (test code = 2214) 0.89 MG/DL eGFR AMER. (test code 84 ML/MIN/1.73 = 41759) eGFR NON- AMER. (test 72 ML/MIN/1.73 code = 89892) CALC BUN/CREAT (test code = 17 RATIO 2235) SODIUM (test code = 2231) 146 MEQ/L POTASSIUM (test code = 2228) 4.4 MEQ/L CHLORIDE (test code = 2215) 104 MEQ/L CARBON DIOXIDE (test code = 32 MEQ/L 2205) CALCIUM (test code = 2209) 9.8 MG/DL PROTEIN, TOTAL (test code = 6.9 G/DL 2228) ALBUMIN (test code = 2201) 4.5 G/DL CALC GLOBULIN (test code = 2.4 G/DL 2240) CALC A/G RATIO (test code = 1.9 RATIO 2234) BILIRUBIN, TOTAL (test code = 0.5 MG/DL 7) ALKALINE PHOSPHATASE (test 101 U/L code = 2204) AST (test code = 2218) 21 U/L ALT (test code = 2219) 13 U/L [id number] 00:00:00 Test Item Value Reference Range Interpretation Comments TSH, THIRD GENERATION (test code 0.300 UIU/ML = 2821) [id number] 00:00:00 Test Item Value Reference Range Interpretation Comments TSH, THIRD GENERATION (test code 0.300 UIU/ML = 2821) [id number] 00:00:00 Test Item Value Reference Range Interpretation Comments TSH, THIRD GENERATION (test code 0.300 UIU/ML = 2821) [id number] 00:00:00 Test Item Value Reference Range Interpretation Comments LEVETIRACETAM (test code = 01932) 36.0 mcg/mL [id number] 00:00:00 Test Item Value Reference Range Interpretation Comments LEVETIRACETAM (test code = 36977) 36.0 mcg/mL [id number] 00:00:00 Test Item Value Reference Range Interpretation Comments LEVETIRACETAM (test code = 43591) 36.0 mcg/mL [id number] 00:00:00 Test Item Value Reference Range Interpretation Comments LEVETIRACETAM (test code = 94942) 36.0 mcg/mL COMPREHENSIVE METABOLIC [id number] 00:00:00 Test Item Value Reference Range Interpretation Comments GLUCOSE (test code = 2217) 75 MG/DL BUN (test code = 2208) 13 MG/DL CREATININE (test code = 2214) 0.81 MG/DL eGFR AMER. (test code 95 ML/MIN/1.73 = 24376) eGFR NON- AMER. (test 82 ML/MIN/1.73 code = 77926) CALC BUN/CREAT (test code = 16 RATIO 2235) SODIUM (test code = 2231) 143 MEQ/L POTASSIUM (test code = 2228) 3.6 MEQ/L CHLORIDE (test code = 2215) 99 MEQ/L CARBON DIOXIDE (test code = 27 MEQ/L 220) CALCIUM (test code = 2209) 9.5 MG/DL PROTEIN, TOTAL (test code = 6.9 G/DL 2228) ALBUMIN (test code = 2201) 4.5 G/DL CALC GLOBULIN (test code = 2.4 G/DL 2239) CALC A/G RATIO (test code = 1.9 RATIO 2234) BILIRUBIN, TOTAL (test code = 0.4 MG/DL 2206) ALKALINE PHOSPHATASE (test 106 U/L code = 2204) AST (test code = 2218) 23 U/L ALT (test code = 2219) 16 U/L COMPREHENSIVE METABOLIC [id number] 00:00:00 Test Item Value Reference Range Interpretation Comments GLUCOSE (test code = 2217) 75 MG/DL BUN (test code = 2208) 13 MG/DL CREATININE (test code = 2214) 0.81 MG/DL eGFR AMER. (test code 95 ML/MIN/1.73 = 84771) eGFR NON- AMER. (test 82 ML/MIN/1.73 code = 04808) CALC BUN/CREAT (test code = 16 RATIO 2235) SODIUM (test code = 2231) 143 MEQ/L POTASSIUM (test code = 2228) 3.6 MEQ/L CHLORIDE (test code = 2215) 99 MEQ/L CARBON DIOXIDE (test code = 27 MEQ/L 220) CALCIUM (test code = 2209) 9.5 MG/DL PROTEIN, TOTAL (test code = 6.9 G/DL 2228) ALBUMIN (test code = 2201) 4.5 G/DL CALC GLOBULIN (test code = 2.4 G/DL 224) CALC A/G RATIO (test code = 1.9 RATIO 2234) BILIRUBIN, TOTAL (test code = 0.4 MG/DL 2206) ALKALINE PHOSPHATASE (test 106 U/L code = 2204) AST (test code = 2218) 23 U/L ALT (test code = 2219) 16 U/L COMPREHENSIVE METABOLIC [id number] 00:00:00 Test Item Value Reference Range Interpretation Comments GLUCOSE (test code = 2217) 75 MG/DL BUN (test code = 2208) 13 MG/DL CREATININE (test code = 2214) 0.81 MG/DL eGFR AMER. (test code 95 ML/MIN/1.73 = 70923) eGFR NON- AMER. (test 82 ML/MIN/1.73 code = 86343) CALC BUN/CREAT (test code = 16 RATIO 2235) SODIUM (test code = 2231) 143 MEQ/L POTASSIUM (test code = 2228) 3.6 MEQ/L CHLORIDE (test code = 2215) 99 MEQ/L CARBON DIOXIDE (test code = 27 MEQ/L 2206) CALCIUM (test code = 2209) 9.5 MG/DL PROTEIN, TOTAL (test code = 6.9 G/DL 222) ALBUMIN (test code = 2201) 4.5 G/DL CALC GLOBULIN (test code = 2.4 G/DL 2240) CALC A/G RATIO (test code = 1.9 RATIO 2234) BILIRUBIN, TOTAL (test code = 0.4 MG/DL 2206) ALKALINE PHOSPHATASE (test 106 U/L code = 2204) AST (test code = 2218) 23 U/L ALT (test code = 2219) 16 U/L COMPREHENSIVE METABOLIC [id number] 00:00:00 Test Item Value Reference Range Interpretation Comments GLUCOSE (test code = 2217) 75 MG/DL BUN (test code = 2208) 13 MG/DL CREATININE (test code = 2214) 0.81 MG/DL eGFR AMER. (test code 95 ML/MIN/1.73 = 83964) eGFR NON- AMER. (test 82 ML/MIN/1.73 code = 17827) CALC BUN/CREAT (test code = 16 RATIO 2235) SODIUM (test code = 2231) 143 MEQ/L POTASSIUM (test code = 2228) 3.6 MEQ/L CHLORIDE (test code = 2215) 99 MEQ/L CARBON DIOXIDE (test code = 27 MEQ/L 220) CALCIUM (test code = 2209) 9.5 MG/DL PROTEIN, TOTAL (test code = 6.9 G/DL 2228) ALBUMIN (test code = 2201) 4.5 G/DL CALC GLOBULIN (test code = 2.4 G/DL 2240) CALC A/G RATIO (test code = 1.9 RATIO 2234) BILIRUBIN, TOTAL (test code = 0.4 MG/DL 2206) ALKALINE PHOSPHATASE (test 106 U/L code = 2204) AST (test code = 2218) 23 U/L ALT (test code = 2219) 16 U/L HEPATIC FUNCTION PANEL [ADDED]2018-09-26 00:00:00 Test Item Value Reference Range Interpretation Comments PROTEIN, TOTAL (test code = 2229) 6.6 G/DL ALBUMIN (test code = 2201) 4.6 G/DL BILIRUBIN, TOTAL (test code = 2207) 0.5 MG/DL BILIRUBIN, DIRECT (test code = 0.1 MG/DL 2021) ALKALINE PHOSPHATASE (test code = 107 U/L 2204) AST (test code = 2218) 23 U/L ALT (test code = 2219) 14 U/L CBC W/AUTO DIFF WITH PLATELETS [ADDED]2018-09-26 00:00:00 Test Item Value Reference Range Interpretation Comments WBC (test code = 1001) 7.2 K/UL RBC (test code = 1002) 4.46 M/UL HEMOGLOBIN (test code = 1003) 13.6 G/DL HEMATOCRIT (test code = 1004) 39.6 % MCV (test code = 1005) 88.8 fL MCH (test code = 1006) 30.5 PG MCHC (test code = 1007) 34.3 G/DL RDW (test code = 1038) 13.1 % NEUTROPHILS (test code = 1008) 64.0 % LYMPHOCYTES (test code = 1010) 24.1 % MONOCYTES (test code = 1011) 8.0 % EOSINOPHILS (test code = 1012) 3.2 % BASOPHILS (test code = 1013) 0.7 % PLATELET COUNT (test code = 1015) 203 K/UL CBC W/AUTO DIFF WITH PLATELETS [ADDED]2018-09-26 00:00:00 Test Item Value Reference Range Interpretation Comments WBC (test code = 1001) 7.2 K/UL RBC (test code = 1002) 4.46 M/UL HEMOGLOBIN (test code = 1003) 13.6 G/DL HEMATOCRIT (test code = 1004) 39.6 % MCV (test code = 1005) 88.8 fL MCH (test code = 1006) 30.5 PG MCHC (test code = 1007) 34.3 G/DL RDW (test code = 1038) 13.1 % NEUTROPHILS (test code = 1008) 64.0 % LYMPHOCYTES (test code = 1010) 24.1 % MONOCYTES (test code = 1011) 8.0 % EOSINOPHILS (test code = 1012) 3.2 % BASOPHILS (test code = 1013) 0.7 % PLATELET COUNT (test code = 1015) 203 K/UL CBC W/AUTO DIFF WITH PLATELETS [ADDED]2018-09-26 00:00:00 Test Item Value Reference Range Interpretation Comments WBC (test code = 1001) 7.2 K/UL RBC (test code = 1002) 4.46 M/UL HEMOGLOBIN (test code = 1003) 13.6 G/DL HEMATOCRIT (test code = 1004) 39.6 % MCV (test code = 1005) 88.8 fL MCH (test code = 1006) 30.5 PG MCHC (test code = 1007) 34.3 G/DL RDW (test code = 1038) 13.1 % NEUTROPHILS (test code = 1008) 64.0 % LYMPHOCYTES (test code = 1010) 24.1 % MONOCYTES (test code = 1011) 8.0 % EOSINOPHILS (test code = 1012) 3.2 % BASOPHILS (test code = 1013) 0.7 % PLATELET COUNT (test code = 1015) 203 K/UL HEMOGLOBIN A1c [ADDED]2018-09-26 00:00:00 Test Item Value Reference Range Interpretation Comments HEMOGLOBIN A1c (test code = 85098) 4.9 % HEMOGLOBIN A1c [ADDED]2018-09-26 00:00:00 Test Item Value Reference Range Interpretation Comments HEMOGLOBIN A1c (test code = 02289) 4.9 % HEMOGLOBIN A1c [ADDED]2018-09-26 00:00:00 Test Item Value Reference Range Interpretation Comments HEMOGLOBIN A1c (test code = 26105) 4.9 % TSH, THIRD GENERATION [ADDED]2018-09-26 00:00:00 Test Item Value Reference Range Interpretation Comments TSH, THIRD GENERATION (test code 2.180 UIU/ML = 2821) TSH, THIRD GENERATION [ADDED]2018-09-26 00:00:00 Test Item Value Reference Range Interpretation Comments TSH, THIRD GENERATION (test code 2.180 UIU/ML = 2821) TSH, THIRD GENERATION [ADDED]2018-09-26 00:00:00 Test Item Value Reference Range Interpretation Comments TSH, THIRD GENERATION (test code 2.180 UIU/ML = 2821) COMPREHENSIVE METABOLIC PANEL [ADDED]2018-09-26 00:00:00 Test Item Value Reference Range Interpretation Comments GLUCOSE (test code = 2217) 84 MG/DL BUN (test code = 2208) 11 MG/DL CREATININE (test code = 2214) 0.98 MG/DL eGFR AMER. (test code 75 ML/MIN/1.73 = 02190) eGFR NON- AMER. (test 65 ML/MIN/1.73 code = 93337) CALC BUN/CREAT (test code = 11 RATIO 2235) SODIUM (test code = 2231) 148 MEQ/L POTASSIUM (test code = 2228) 4.1 MEQ/L CHLORIDE (test code = 2215) 106 MEQ/L CARBON DIOXIDE (test code = 32 MEQ/L 2206) CALCIUM (test code = 2209) 9.6 MG/DL PROTEIN, TOTAL (test code = 6.6 G/DL 2229) ALBUMIN (test code = 2201) 4.6 G/DL CALC GLOBULIN (test code = 2.0 G/DL 2240) CALC A/G RATIO (test code = 2.3 RATIO 2234) BILIRUBIN, TOTAL (test code = 0.5 MG/DL 220) ALKALINE PHOSPHATASE (test 107 U/L code = 2204) AST (test code = 2218) 23 U/L ALT (test code = 2219) 14 U/L COMPREHENSIVE METABOLIC PANEL [ADDED]2018-09-26 00:00:00 Test Item Value Reference Range Interpretation Comments GLUCOSE (test code = 2217) 84 MG/DL BUN (test code = 2208) 11 MG/DL CREATININE (test code = 2214) 0.98 MG/DL eGFR AMER. (test code 75 ML/MIN/1.73 = 66178) eGFR NON- AMER. (test 65 ML/MIN/1.73 code = 44065) CALC BUN/CREAT (test code = 11 RATIO 2235) SODIUM (test code = 2231) 148 MEQ/L POTASSIUM (test code = 2228) 4.1 MEQ/L CHLORIDE (test code = 2215) 106 MEQ/L CARBON DIOXIDE (test code = 32 MEQ/L 2206) CALCIUM (test code = 2209) 9.6 MG/DL PROTEIN, TOTAL (test code = 6.6 G/DL 2228) ALBUMIN (test code = 2201) 4.6 G/DL CALC GLOBULIN (test code = 2.0 G/DL 2240) CALC A/G RATIO (test code = 2.3 RATIO 2234) BILIRUBIN, TOTAL (test code = 0.5 MG/DL 2207) ALKALINE PHOSPHATASE (test 107 U/L code = 2204) AST (test code = 2218) 23 U/L ALT (test code = 2219) 14 U/L LIPID PANEL [ADDED]2018-09-26 00:00:00 Test Item Value Reference Range Interpretation Comments CHOLESTEROL (test code = 2210) 174 MG/DL TRIGLYCERIDES (test code = 2232) 59 MG/DL HDL CHOLESTEROL (test code = 2220) 63 MG/DL CALC LDL CHOL (test code = 2237) 99 MG/DL RISK RATIO LDL/HDL (test code = 1.57 RATIO 2238) LIPID PANEL [ADDED]2018-09-26 00:00:00 Test Item Value Reference Range Interpretation Comments CHOLESTEROL (test code = 2210) 174 MG/DL TRIGLYCERIDES (test code = 2232) 59 MG/DL HDL CHOLESTEROL (test code = 2220) 63 MG/DL CALC LDL CHOL (test code = 2237) 99 MG/DL RISK RATIO LDL/HDL (test code = 1.57 RATIO 2238) HEPATIC FUNCTION PANEL [ADDED]2018-09-26 00:00:00 Test Item Value Reference Range Interpretation Comments PROTEIN, TOTAL (test code = 2229) 6.6 G/DL ALBUMIN (test code = 2201) 4.6 G/DL BILIRUBIN, TOTAL (test code = 2207) 0.5 MG/DL BILIRUBIN, DIRECT (test code = 0.1 MG/DL 2021) ALKALINE PHOSPHATASE (test code = 107 U/L 2203) AST (test code = 2218) 23 U/L ALT (test code = 2219) 14 U/L HEPATIC FUNCTION PANEL [ADDED]2018-09-26 00:00:00 Test Item Value Reference Range Interpretation Comments PROTEIN, TOTAL (test code = 2229) 6.6 G/DL ALBUMIN (test code = 2201) 4.6 G/DL BILIRUBIN, TOTAL (test code = 2207) 0.5 MG/DL BILIRUBIN, DIRECT (test code = 0.1 MG/DL 2021) ALKALINE PHOSPHATASE (test code = 107 U/L 2203) AST (test code = 2218) 23 U/L ALT (test code = 2219) 14 U/L CBC W/AUTO DIFF WITH PLATELETS [ADDED]2018-09-26 00:00:00 Test Item Value Reference Range Interpretation Comments WBC (test code = 1001) 7.2 K/UL RBC (test code = 1002) 4.46 M/UL HEMOGLOBIN (test code = 1003) 13.6 G/DL HEMATOCRIT (test code = 1004) 39.6 % MCV (test code = 1005) 88.8 fL MCH (test code = 1006) 30.5 PG MCHC (test code = 1007) 34.3 G/DL RDW (test code = 1038) 13.1 % NEUTROPHILS (test code = 1008) 64.0 % LYMPHOCYTES (test code = 1010) 24.1 % MONOCYTES (test code = 1011) 8.0 % EOSINOPHILS (test code = 1012) 3.2 % BASOPHILS (test code = 1013) 0.7 % PLATELET COUNT (test code = 1015) 203 K/UL CBC W/AUTO DIFF WITH PLATELETS [ADDED]2018-09-26 00:00:00 Test Item Value Reference Range Interpretation Comments WBC (test code = 1001) 7.2 K/UL RBC (test code = 1002) 4.46 M/UL HEMOGLOBIN (test code = 1003) 13.6 G/DL HEMATOCRIT (test code = 1004) 39.6 % MCV (test code = 1005) 88.8 fL MCH (test code = 1006) 30.5 PG MCHC (test code = 1007) 34.3 G/DL RDW (test code = 1038) 13.1 % NEUTROPHILS (test code = 1008) 64.0 % LYMPHOCYTES (test code = 1010) 24.1 % MONOCYTES (test code = 1011) 8.0 % EOSINOPHILS (test code = 1012) 3.2 % BASOPHILS (test code = 1013) 0.7 % PLATELET COUNT (test code = 1015) 203 K/UL CBC W/AUTO DIFF WITH PLATELETS [ADDED]2018-09-26 00:00:00 Test Item Value Reference Range Interpretation Comments WBC (test code = 1001) 7.2 K/UL RBC (test code = 1002) 4.46 M/UL HEMOGLOBIN (test code = 1003) 13.6 G/DL HEMATOCRIT (test code = 1004) 39.6 % MCV (test code = 1005) 88.8 fL MCH (test code = 1006) 30.5 PG MCHC (test code = 1007) 34.3 G/DL RDW (test code = 1038) 13.1 % NEUTROPHILS (test code = 1008) 64.0 % LYMPHOCYTES (test code = 1010) 24.1 % MONOCYTES (test code = 1011) 8.0 % EOSINOPHILS (test code = 1012) 3.2 % BASOPHILS (test code = 1013) 0.7 % PLATELET COUNT (test code = 1015) 203 K/UL HEMOGLOBIN A1c [ADDED]2018-09-26 00:00:00 Test Item Value Reference Range Interpretation Comments HEMOGLOBIN A1c (test code = 60359) 4.9 % HEMOGLOBIN A1c [ADDED]2018-09-26 00:00:00 Test Item Value Reference Range Interpretation Comments HEMOGLOBIN A1c (test code = 11934) 4.9 % HEMOGLOBIN A1c [ADDED]2018-09-26 00:00:00 Test Item Value Reference Range Interpretation Comments HEMOGLOBIN A1c (test code = 62626) 4.9 % TSH, THIRD GENERATION [ADDED]2018-09-26 00:00:00 Test Item Value Reference Range Interpretation Comments TSH, THIRD GENERATION (test code 2.180 UIU/ML = 2821) TSH, THIRD GENERATION [ADDED]2018-09-26 00:00:00 Test Item Value Reference Range Interpretation Comments TSH, THIRD GENERATION (test code 2.180 UIU/ML = 2821) TSH, THIRD GENERATION [ADDED]2018-09-26 00:00:00 Test Item Value Reference Range Interpretation Comments TSH, THIRD GENERATION (test code 2.180 UIU/ML = 2821) COMPREHENSIVE METABOLIC PANEL [ADDED]2018-09-26 00:00:00 Test Item Value Reference Range Interpretation Comments GLUCOSE (test code = 2217) 84 MG/DL BUN (test code = 2208) 11 MG/DL CREATININE (test code = 2214) 0.98 MG/DL eGFR AMER. (test code 75 ML/MIN/1.73 = 18775) eGFR NON- AMER. (test 65 ML/MIN/1.73 code = 10858) CALC BUN/CREAT (test code = 11 RATIO 2235) SODIUM (test code = 2231) 148 MEQ/L POTASSIUM (test code = 2228) 4.1 MEQ/L CHLORIDE (test code = 2215) 106 MEQ/L CARBON DIOXIDE (test code = 32 MEQ/L 2205) CALCIUM (test code = 2209) 9.6 MG/DL PROTEIN, TOTAL (test code = 6.6 G/DL 2228) ALBUMIN (test code = 2201) 4.6 G/DL CALC GLOBULIN (test code = 2.0 G/DL 2239) CALC A/G RATIO (test code = 2.3 RATIO 2234) BILIRUBIN, TOTAL (test code = 0.5 MG/DL 2206) ALKALINE PHOSPHATASE (test 107 U/L code = 2204) AST (test code = 2218) 23 U/L ALT (test code = 2219) 14 U/L COMPREHENSIVE METABOLIC PANEL [ADDED]2018-09-26 00:00:00 Test Item Value Reference Range Interpretation Comments GLUCOSE (test code = 2217) 84 MG/DL BUN (test code = 2208) 11 MG/DL CREATININE (test code = 2214) 0.98 MG/DL eGFR AMER. (test code 75 ML/MIN/1.73 = 86535) eGFR NON- AMER. (test 65 ML/MIN/1.73 code = 35749) CALC BUN/CREAT (test code = 11 RATIO 2235) SODIUM (test code = 2231) 148 MEQ/L POTASSIUM (test code = 2228) 4.1 MEQ/L CHLORIDE (test code = 2215) 106 MEQ/L CARBON DIOXIDE (test code = 32 MEQ/L 2206) CALCIUM (test code = 2209) 9.6 MG/DL PROTEIN, TOTAL (test code = 6.6 G/DL 222) ALBUMIN (test code = 2201) 4.6 G/DL CALC GLOBULIN (test code = 2.0 G/DL 2240) CALC A/G RATIO (test code = 2.3 RATIO 2234) BILIRUBIN, TOTAL (test code = 0.5 MG/DL 220) ALKALINE PHOSPHATASE (test 107 U/L code = 2204) AST (test code = 2218) 23 U/L ALT (test code = 2219) 14 U/L LIPID PANEL [ADDED]2018-09-26 00:00:00 Test Item Value Reference Range Interpretation Comments CHOLESTEROL (test code = 2210) 174 MG/DL TRIGLYCERIDES (test code = 2232) 59 MG/DL HDL CHOLESTEROL (test code = 2220) 63 MG/DL CALC LDL CHOL (test code = 2237) 99 MG/DL RISK RATIO LDL/HDL (test code = 1.57 RATIO 2238) LIPID PANEL [ADDED]2018-09-26 00:00:00 Test Item Value Reference Range Interpretation Comments CHOLESTEROL (test code = 2210) 174 MG/DL TRIGLYCERIDES (test code = 2232) 59 MG/DL HDL CHOLESTEROL (test code = 2220) 63 MG/DL CALC LDL CHOL (test code = 2237) 99 MG/DL RISK RATIO LDL/HDL (test code = 1.57 RATIO 2238) HEPATIC FUNCTION PANEL [ADDED]2018-09-26 00:00:00 Test Item Value Reference Range Interpretation Comments PROTEIN, TOTAL (test code = 2229) 6.6 G/DL ALBUMIN (test code = 2201) 4.6 G/DL BILIRUBIN, TOTAL (test code = 2207) 0.5 MG/DL BILIRUBIN, DIRECT (test code = 0.1 MG/DL 2021) ALKALINE PHOSPHATASE (test code = 107 U/L 2203) AST (test code = 2218) 23 U/L ALT (test code = 2219) 14 U/L COMPREHENSIVE METABOLIC [id number] 00:00:00 Test Item Value Reference Range Interpretation Comments GLUCOSE (test code = 2217) 81 MG/DL BUN (test code = 2208) 18 MG/DL CREATININE (test code = 2214) 0.86 MG/DL eGFR AMER. (test code 88 ML/MIN/1.73 = 66653) eGFR NON- AMER. (test 76 ML/MIN/1.73 code = 84792) CALC BUN/CREAT (test code = 21 RATIO 5) SODIUM (test code = 2231) 146 MEQ/L POTASSIUM (test code = 2228) 3.8 MEQ/L CHLORIDE (test code = 2215) 105 MEQ/L CARBON DIOXIDE (test code = 30 MEQ/L 2205) CALCIUM (test code = 2209) 9.0 MG/DL PROTEIN, TOTAL (test code = 6.6 G/DL 2228) ALBUMIN (test code = 2201) 4.4 G/DL CALC GLOBULIN (test code = 2.2 G/DL 2239) CALC A/G RATIO (test code = 2.0 RATIO 2233) BILIRUBIN, TOTAL (test code = 0.3 MG/DL 2206) ALKALINE PHOSPHATASE (test 91 U/L code = 2204) AST (test code = 2218) 19 U/L ALT (test code = 2219) 14 U/L CBC W/AUTO [id number] 00:00:00 Test Item Value Reference Range Interpretation Comments WBC (test code = 1001) 6.5 K/UL RBC (test code = 1002) 4.50 M/UL HEMOGLOBIN (test code = 1003) 13.3 G/DL HEMATOCRIT (test code = 1004) 39.5 % MCV (test code = 1005) 87.8 fL MCH (test code = 1006) 29.6 PG MCHC (test code = 1007) 33.7 G/DL RDW (test code = 1038) 12.8 % NEUTROPHILS (test code = 1008) 62.3 % LYMPHOCYTES (test code = 1010) 25.9 % MONOCYTES (test code = 1011) 7.1 % EOSINOPHILS (test code = 1012) 3.9 % BASOPHILS (test code = 1013) 0.8 % PLATELET COUNT (test code = 1015) 183 K/UL CBC W/AUTO [id number] 00:00:00 Test Item Value Reference Range Interpretation Comments WBC (test code = 1001) 6.5 K/UL RBC (test code = 1002) 4.50 M/UL HEMOGLOBIN (test code = 1003) 13.3 G/DL HEMATOCRIT (test code = 1004) 39.5 % MCV (test code = 1005) 87.8 fL MCH (test code = 1006) 29.6 PG MCHC (test code = 1007) 33.7 G/DL RDW (test code = 1038) 12.8 % NEUTROPHILS (test code = 1008) 62.3 % LYMPHOCYTES (test code = 1010) 25.9 % MONOCYTES (test code = 1011) 7.1 % EOSINOPHILS (test code = 1012) 3.9 % BASOPHILS (test code = 1013) 0.8 % PLATELET COUNT (test code = 1015) 183 K/UL CBC W/AUTO [id number] 00:00:00 Test Item Value Reference Range Interpretation Comments WBC (test code = 1001) 6.5 K/UL RBC (test code = 1002) 4.50 M/UL HEMOGLOBIN (test code = 1003) 13.3 G/DL HEMATOCRIT (test code = 1004) 39.5 % MCV (test code = 1005) 87.8 fL MCH (test code = 1006) 29.6 PG MCHC (test code = 1007) 33.7 G/DL RDW (test code = 1038) 12.8 % NEUTROPHILS (test code = 1008) 62.3 % LYMPHOCYTES (test code = 1010) 25.9 % MONOCYTES (test code = 1011) 7.1 % EOSINOPHILS (test code = 1012) 3.9 % BASOPHILS (test code = 1013) 0.8 % PLATELET COUNT (test code = 1015) 183 K/UL [id number] 00:00:00 Test Item Value Reference Range Interpretation Comments TSH, THIRD GENERATION (test code 2.510 UIU/ML = 2821) [id number] 00:00:00 Test Item Value Reference Range Interpretation Comments TSH, THIRD GENERATION (test code 2.510 UIU/ML = 2821) [id number] 00:00:00 Test Item Value Reference Range Interpretation Comments TSH, THIRD GENERATION (test code 2.510 UIU/ML = 2821) COMPREHENSIVE METABOLIC [id number] 00:00:00 Test Item Value Reference Range Interpretation Comments GLUCOSE (test code = 2217) 81 MG/DL BUN (test code = 2208) 18 MG/DL CREATININE (test code = 2214) 0.86 MG/DL eGFR AMER. (test code 88 ML/MIN/1.73 = 69408) eGFR NON- AMER. (test 76 ML/MIN/1.73 code = 26273) CALC BUN/CREAT (test code = 21 RATIO 2235) SODIUM (test code = 2231) 146 MEQ/L POTASSIUM (test code = 2228) 3.8 MEQ/L CHLORIDE (test code = 2215) 105 MEQ/L CARBON DIOXIDE (test code = 30 MEQ/L 2205) CALCIUM (test code = 2209) 9.0 MG/DL PROTEIN, TOTAL (test code = 6.6 G/DL 2228) ALBUMIN (test code = 2201) 4.4 G/DL CALC GLOBULIN (test code = 2.2 G/DL 2240) CALC A/G RATIO (test code = 2.0 RATIO 4) BILIRUBIN, TOTAL (test code = 0.3 MG/DL 2206) ALKALINE PHOSPHATASE (test 91 U/L code = 2204) AST (test code = 2218) 19 U/L ALT (test code = 2219) 14 U/L COMPREHENSIVE METABOLIC [id number] 00:00:00 Test Item Value Reference Range Interpretation Comments GLUCOSE (test code = 2217) 81 MG/DL BUN (test code = 2208) 18 MG/DL CREATININE (test code = 2214) 0.86 MG/DL eGFR AMER. (test code 88 ML/MIN/1.73 = 91263) eGFR NON- AMER. (test 76 ML/MIN/1.73 code = 68638) CALC BUN/CREAT (test code = 21 RATIO 2235) SODIUM (test code = 2231) 146 MEQ/L POTASSIUM (test code = 2228) 3.8 MEQ/L CHLORIDE (test code = 2215) 105 MEQ/L CARBON DIOXIDE (test code = 30 MEQ/L 2205) CALCIUM (test code = 2209) 9.0 MG/DL PROTEIN, TOTAL (test code = 6.6 G/DL 2228) ALBUMIN (test code = 2201) 4.4 G/DL CALC GLOBULIN (test code = 2.2 G/DL 2239) CALC A/G RATIO (test code = 2.0 RATIO 2233) BILIRUBIN, TOTAL (test code = 0.3 MG/DL 2206) ALKALINE PHOSPHATASE (test 91 U/L code = 2204) AST (test code = 2218) 19 U/L ALT (test code = 2219) 14 U/L CBC W/AUTO [id number] 00:00:00 Test Item Value Reference Range Interpretation Comments WBC (test code = 1001) 6.5 K/UL RBC (test code = 1002) 4.50 M/UL HEMOGLOBIN (test code = 1003) 13.3 G/DL HEMATOCRIT (test code = 1004) 39.5 % MCV (test code = 1005) 87.8 fL MCH (test code = 1006) 29.6 PG MCHC (test code = 1007) 33.7 G/DL RDW (test code = 1038) 12.8 % NEUTROPHILS (test code = 1008) 62.3 % LYMPHOCYTES (test code = 1010) 25.9 % MONOCYTES (test code = 1011) 7.1 % EOSINOPHILS (test code = 1012) 3.9 % BASOPHILS (test code = 1013) 0.8 % PLATELET COUNT (test code = 1015) 183 K/UL CBC W/AUTO [id number] 00:00:00 Test Item Value Reference Range Interpretation Comments WBC (test code = 1001) 6.5 K/UL RBC (test code = 1002) 4.50 M/UL HEMOGLOBIN (test code = 1003) 13.3 G/DL HEMATOCRIT (test code = 1004) 39.5 % MCV (test code = 1005) 87.8 fL MCH (test code = 1006) 29.6 PG MCHC (test code = 1007) 33.7 G/DL RDW (test code = 1038) 12.8 % NEUTROPHILS (test code = 1008) 62.3 % LYMPHOCYTES (test code = 1010) 25.9 % MONOCYTES (test code = 1011) 7.1 % EOSINOPHILS (test code = 1012) 3.9 % BASOPHILS (test code = 1013) 0.8 % PLATELET COUNT (test code = 1015) 183 K/UL CBC W/AUTO [id number] 00:00:00 Test Item Value Reference Range Interpretation Comments WBC (test code = 1001) 6.5 K/UL RBC (test code = 1002) 4.50 M/UL HEMOGLOBIN (test code = 1003) 13.3 G/DL HEMATOCRIT (test code = 1004) 39.5 % MCV (test code = 1005) 87.8 fL MCH (test code = 1006) 29.6 PG MCHC (test code = 1007) 33.7 G/DL RDW (test code = 1038) 12.8 % NEUTROPHILS (test code = 1008) 62.3 % LYMPHOCYTES (test code = 1010) 25.9 % MONOCYTES (test code = 1011) 7.1 % EOSINOPHILS (test code = 1012) 3.9 % BASOPHILS (test code = 1013) 0.8 % PLATELET COUNT (test code = 1015) 183 K/UL [id number] 00:00:00 Test Item Value Reference Range Interpretation Comments TSH, THIRD GENERATION (test code 2.510 UIU/ML = 2821) [id number] 00:00:00 Test Item Value Reference Range Interpretation Comments TSH, THIRD GENERATION (test code 2.510 UIU/ML = 2821) [id number] 00:00:00 Test Item Value Reference Range Interpretation Comments TSH, THIRD GENERATION (test code 2.510 UIU/ML = 2821) COMPREHENSIVE METABOLIC [id number] 00:00:00 Test Item Value Reference Range Interpretation Comments GLUCOSE (test code = 2217) 81 MG/DL BUN (test code = 2208) 18 MG/DL CREATININE (test code = 2214) 0.86 MG/DL eGFR AMER. (test code 88 ML/MIN/1.73 = 06712) eGFR NON- AMER. (test 76 ML/MIN/1.73 code = 94171) CALC BUN/CREAT (test code = 21 RATIO 2234) SODIUM (test code = 2231) 146 MEQ/L POTASSIUM (test code = 2228) 3.8 MEQ/L CHLORIDE (test code = 2215) 105 MEQ/L CARBON DIOXIDE (test code = 30 MEQ/L 2205) CALCIUM (test code = 220) 9.0 MG/DL PROTEIN, TOTAL (test code = 6.6 G/DL 2228) ALBUMIN (test code = 2200) 4.4 G/DL CALC GLOBULIN (test code = 2.2 G/DL 2239) CALC A/G RATIO (test code = 2.0 RATIO 2233) BILIRUBIN, TOTAL (test code = 0.3 MG/DL 2206) ALKALINE PHOSPHATASE (test 91 U/L code = 2203) AST (test code = 2218) 19 U/L ALT (test code = 2219) 14 U/L
[2021-11-22] MEDS ORDERED: ONDANSETRON 4 MG/2 ML VIAL ONE (12:39)
[2021-11-22] MEDS ORDERED: MECLIZINE HCL 12.5 MG TAB ONE (12:39)
[2021-11-22] MEDS ORDERED: NA CHLORIDE 0.9% 1,000 ML ONE (12:39)
--- NOTE | 2021-11-22 12:49 | RAD REPORT ---
EXAM DESCRIPTION: CT - CTHCSPWOC - 11/22/2021 12:39 pm CLINICAL HISTORY: Trauma, head and neck injury. dizziness, fall COMPARISON: No comparisons TECHNIQUE: Axial 5 mm thick images of the head were obtained. Axial 2 mm thick images of the cervical spine were obtained with sagittal and coronal reconstruction images generated and reviewed. All CT scans are performed using dose optimization technique as appropriate and may include automated exposure control or mA/KV adjustment according to patient size. FINDINGS: CT HEAD WITHOUT CONTRAST: No acute hemorrhage, hydrocephalus or extra-axial collection is identified.Postsurgical changes are s een left temporal lobe with aneurysm clips present. The paranasal sinuses and mastoids are clear.Left temporal craniotomy. CT CERVICAL SPINE WITHOUT CONTRAST: No fracture or subluxation.No prevertebral soft tissues swelling is identified. IMPRESSION: No acute intracranial or cervical spine findings. Postsurgical changes left temporal lobe with aneurysm clips present.
--- NOTE | 2021-11-22 12:56 | RAD REPORT ---
EXAM DESCRIPTION: RAD - Chest Single View - 11/22/2021 12:49 pm CLINICAL HISTORY: weakness Chest pain. COMPARISON: Chest Single View dated 11/21/2018 FINDINGS: Portable technique limits examination quality. The lungs are mildly emphysematous but grossly clear. The heart is normal in size. No displaced fract ures. IMPRESSION: Mild COPD.
[2021-11-22 13:57] LABS: Absolute Lymphocytes (CBC) 1.4 K/uL (0.7-4.9); Hematocrit 42.2 % (36.0-45.0); Lymphocytes % 19.2 % (15.3-44.8); MCV 93.1 fL (80-100); MPV 8.7 fL (7.6-11.3); RBC Red Blood Cell Count 4.53 M/uL (3.86-4.86)
[2021-11-22 14:02] LABS: Bilirubin Direct 0.2 mg/dL (0-0.2); Bilirubin Total 0.5 mg/dL (0.2-1.0); Magnesium 2.4 mg/dL (1.8-2.4); Potassium 3.3 mmol/L (3.5-5.1); Protein, Total 7.1 g/dL (6.4-8.2); Protime INR 1.2; Troponin High Sensitivity 8.3 pg/mL (<58.9)
--- NOTE | 2021-11-22 14:50 | RAD REPORT ---
EXAM DESCRIPTION: CT - Head angio - 11/22/2021 2:39 pm CLINICAL HISTORY: dizziness Headache, drowsiness, dizziness. COMPARISON: Head Brain Wo Cont dated 11/23/2018; Ct Stroke Brain Wo Cont dated 11/21/2018 TECHNIQUE: CT angiography of the head was performed with MIPs. All CT scans are performed using dose optimization technique as appropriate and may include automated exposure control or mA/KV adjustment according to patient size. FINDINGS: No evidence of aneurysm is detected. No flow-limiting stenosis or vascular malformation id entified. Left temporal lobe demonstrates evidence of previous aneurysm clipping with postoperative c hanges present. Antegrade flow is seen in the vertebral arteries. The vertebral arteries are codominant. The visualized dural venous sinuses are patent. IMPRESSION: No significant flow abnormality is detected.
--- NOTE | 2021-11-22 14:53 | RAD REPORT ---
EXAM DESCRIPTION: CT - Neck Angio - 11/22/2021 2:39 pm CLINICAL HISTORY: dizziness Headache, drowsiness, dizziness COMPARISON: Head C Spine Mpr Wo Con dated 11/22/2021 TECHNIQUE: CT angiography of the neck vessels was performed with MIPs. All CT scans are performed using dose optimization technique as appropriate and may include automated exposure control or mA/KV adjustment according to patient size. FINDINGS: A left aortic arch is identified with normal three vessel configuration of the great vesse ls. No significant flow abnormality is seen of the common carotid bilaterally. No significant stenosis is identified involving the cervical segments of both internal carotid arteri es. Mild hard plaque is seen in both carotid bulbs. Normal flow is seen within both vertebral arteries. IMPRESSION: No significant flow abnormality of the neck vessels is identified. Slight hard plaque in both carotid bulbs.
--- NOTE | 2021-11-22 15:59 | ER ---
Nurse's Notes [facility] Name: Pati Romero Age: 56 yrs Sex: Female : 1965 Arrival Date: 11/22/2021 Time: 12:10 Bed 7 Private MD: Diagnosis: Vertigo Presentation: 11/22 12:11 Chief complaint: Patient states: dizziness started last night after taking prescribed eh3 sleeping pill Mirtazapine. Accidentally took another Mirtazapine today at 6am, dizziness worsened and she fell outside. Denies hitting head or loss of consciousness. Complains of nausea and dizziness. Coronavirus screen: Vaccine status: Patient reports receiving the 2nd dose of the covid vaccine. Ebola Screen: No symptoms or risks identified at this time. Initial Sepsis Screen: Does the patient meet any 2 criteria? No. Patient's initial sepsis screen is negative. Does the patient have a suspected source of infection? No. Patient's initial sepsis screen is negative. Risk Assessment: Do you want to hurt yourself or someone else? Patient reports no desire to harm self or others. Onset of symptoms was November 22, 2021. 12:11 Method Of Arrival: EMS: [facility] 12:11 Acuity: SUSAN 3 eh3 Triage Assessment: 12:13 General: Appears in no apparent distress. uncomfortable, Behavior is calm, cooperative, eh3 appropriate for age. Pain: Denies pain. Neuro: Level of Consciousness is awake, alert, obeys commands, Oriented to person, place, time, situation. Cardiovascular: Capillary refill Patient's skin is warm and dry. Respiratory: Airway is patent Respiratory effort is even, unlabored. GI: Abdomen is round non-distended, Reports nausea. : No signs and/or symptoms were reported regarding the genitourinary system. Derm: No signs and/or symptoms reported regarding the dermatologic system. Musculoskeletal: Circulation, motion, and sensation intact. Range of motion: intact in all extremities. 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 - Social history:: Smoking status: Patient denies any tobacco usage or history of. Patient/guardian denies using alcohol. Screenin:18 Abuse screen: Denies threats or abuse. Denies injuries from another. Nutritional eh3 screening: No deficits noted. Tuberculosis screening: No symptoms or risk factors identified. Fall Risk Fall in past 12 months (25 points). Secondary diagnosis (15 points) IV access (20 points). Total Bang Fall Scale indicates High Risk Score (45 or more points). Fall prevention measures have been instituted. Side Rails Up X 2 Placed Close to Nursing Station Frequent Obs/Assessments Occuring As available patient and family educated on Fall Prevention Program and Strategies. Assessment: 12:18 Reassessment: No changes from previously documented assessment. See triage assessment. eh3 13:15 Reassessment: Patient and/or family updated on plan of care and expected duration. Pain eh3 level reassessed. Patient is alert, oriented x 3, equal unlabored respirations, skin warm/dry/pink. 14:15 Reassessment: Patient and/or family updated on plan of care and expected duration. Pain eh3 level reassessed. Patient is alert, oriented x 3, equal unlabored respirations, skin warm/dry/pink. Patient states symptoms have improved. 15:15 Reassessment: Patient and/or family updated on plan of care and expected duration. Pain eh3 level reassessed. Patient is alert, oriented x 3, equal unlabored respirations, skin warm/dry/pink. Patient states symptoms have improved. Vital Signs: 12:11 BP 103 / 77; Pulse 73; Resp 20; Temp 99.3(O); Pulse Ox 97% on R/A; Weight 79.38 kg; eh3 Height 5 ft. 3 in. (160.02 cm); Pain 0/10; 13:30 BP 121 / 83; Pulse 57; Resp 18; Pulse Ox 100% on R/A; eh3 14:30 BP 106 / 62; Pulse 57; Resp 16; Pulse Ox 99% on R/A; eh3 15:30 BP 113 / 93; Pulse 82; Resp 12; Pulse Ox 99% on R/A; eh3 12:11 Body Mass Index 31.00 (79.38 kg, 160.02 cm) eh3 ED Course: 12:10 Patient arrived in ED. ld1 12:10 Marva Cabrera, RN is Primary Nurse. eh3 12:13 Triage completed. eh3 12:13 Arm band placed on right wrist. 3 12:17 Lester Gonzales PA is PHCP. [facility] 12:17 Charly Patel MD is Attending Physician. [facility] 12:18 Patient has correct armband on for positive identification. Bed in low position. Call 3 light in reach. Side rails up X2. Client placed on continuous cardiac and pulse oximetry monitoring. NIBP monitoring applied. Door closed. Noise minimized. Lights dimmed. Warm blanket given. 12:18 Maintain EMS IV. Dressing intact. Good blood return noted. Site clean \T\ dry. Gauge \T\ eh 3 site: 20g RAC. 12:27 Basic Metabolic Panel Sent. eh3 12:42 CT Head C Spine In Process Unspecified. EDMS 12:51 XRAY Chest (1 view) In Process Unspecified. EDMS 14:41 CT Head Angio In Process Unspecified. EDMS 14:41 CT Neck Angio In Process Unspecified. EDMS 16:18 No provider procedures requiring assistance completed. IV discontinued, intact, eh3 bleeding controlled, No redness/swelling at site. Pressure dressing applied. Administered Medications: 13:20 Drug: Zofran (Ondansetron) 4 mg Route: IVP; Site: right antecubital; 3 13:43 Follow up: Response: Nausea is decreased 3 13:20 Drug: Meclizine 25 mg Route: PO; 3 13:43 Follow up: Response: Marked relief of symptoms 3 13:20 Drug: NS 0.9% 1000 ml Route: IV; Rate: 1 bolus; Site: right antecubital; eh3 13:49 Follow up: IV Status: Completed infusion; IV Intake: 1000ml 3 Medication: 12:18 VIS not applicable for this client. eh3 Intake: 13:49 IV: 1000ml; Total: 1000ml. 3 Outcome: 15:58 Discharge ordered by MD. devi 16:18 Discharged to home ambulatory. 3 16:18 Condition: stable 16:18 Discharge instructions given to patient, Instructed on discharge instructions, follow up and referral plans. medication usage, Demonstrated understanding of instructions, follow-up care, medications, Prescriptions given X 1. 16:24 Patient left the ED. 3 Signatures: Dispatcher [employer] EDMS Lester Gonzales PA PA jmm Dibbern, Lauren, RN RN ld1 Marva Cabrera RN RN eh3
--- NOTE | 2021-11-22 16:00 | EDPHYS ---
[facility] Name: Pati Romero Age: 56 yrs Sex: Female : 1965 Arrival Date: 11/22/2021 Time: 12:10 Bed 7 Private MD: ED Physician Charly Patel HPI: 11/22 12:17 This 56 yrs old Female presents to ER via EMS with complaints of Vertigo. [facility] 12:17 The patient presents with dizziness. Onset: The symptoms/episode began/occurred jm acutely, today. 56-year-old female with history of depression, hypertension, epilepsy the presents emerged department with complaints of acute onset dizziness which occurred after she took newly prescribed prescription last night and this morning. Complains of moving sensation whenever she moves her head. Also complains of nausea and vomiting. Patient having difficulty to walk due to this. 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 - Social history:: Smoking status: Patient denies any tobacco usage or history of. Patient/guardian denies using alcohol. ROS: 12:17 Constitutional: Negative for fever, chills, and weight loss, Cardiovascular: Negative [facility] for chest pain, palpitations, and edema, Respiratory: Negative for shortness of breath, cough, wheezing, and pleuritic chest pain. 12:17 Neuro: Positive for dizziness. 12:17 All other systems are negative. Exam: 12:17 Constitutional: This is a well developed, well nourished patient who is awake, alert, jmm and in no acute distress. Head/Face: atraumatic. 12:17 Chest/axilla: Normal chest wall appearance and motion. Cardiovascular: Regular rate and rhythm. No edema appreciated Respiratory: Normal respirations, no respiratory distress appreciated Abdomen/GI: Non distended Back: Normal ROM Skin: General appearance color normal MS/ Extremity: Moves all extremities, no obvious deformities appreciated, no edema noted to the lower extremities 12:17 Eyes: Nystagmus: nystagmus with fast component noted, bilaterally. 12:17 Neuro: Orientation: is normal, Mentation: is normal, Memory: is normal, Cerebellar function: normal finger to nose testing, heel to rai testing is normal. 12:17 Psych: Behavior/mood is pleasant, cooperative. Vital Signs: 12:11 BP 103 / 77; Pulse 73; Resp 20; Temp 99.3(O); Pulse Ox 97% on R/A; Weight 79.38 kg; eh3 Height 5 ft. 3 in. (160.02 cm); Pain 0/10; 13:30 BP 121 / 83; Pulse 57; Resp 18; Pulse Ox 100% on R/A; eh3 14:30 BP 106 / 62; Pulse 57; Resp 16; Pulse Ox 99% on R/A; eh3 15:30 BP 113 / 93; Pulse 82; Resp 12; Pulse Ox 99% on R/A; eh3 12:11 Body Mass Index 31.00 (79.38 kg, 160.02 cm) 3 MDM: 12:17 Patient medically screened. [facility] 15:58 Data reviewed: vital signs, nurses notes. Counseling: I had a detailed discussion with [facility] the patient and/or guardian regarding: the historical points, exam findings, and any diagnostic results supporting the discharge/admit diagnosis, lab results, radiology results, the need for outpatient follow up, to return to the emergency department if symptoms worsen or persist or if there are any questions or concerns that arise at home. ED course: CT and CTA are negative. Patient states feeling much better after administration of meclizine. Patient advised to discontinue use of Remeron until reevaluated by her neurologist. Patient otherwise given strict return precautions. Patient understood and agrees plan of care.. 11/22 12:22 Order name: Basic Metabolic Panel; Complete Time: 14:08 [facility] 11/22 12:22 Order name: CBC with Diff; Complete Time: 14: [facility] 11/22 12:22 Order name: LFT's; Complete Time: 14: [facility] 11/22 12:22 Order name: Magnesium; Complete Time: 14: [facility] 11/22 12:22 Order name: NT PRO-BNP; Complete Time: 14: [facility] 11/22 12:22 Order name: PT-INR; Complete Time: 14: [facility] 11/22 12:22 Order name: Troponin HS; Complete Time: 14: [facility] 11/22 12:22 Order name: XRAY Chest (1 view); Complete Time: 12:58 [facility] 11/22 12:22 Order name: CT Head C Spine; Complete Time: 12:52 [facility] 11/22 13:31 Order name: CT Head Angio; Complete Time: 14:59 [facility] 11/22 13:31 Order name: CT Neck Angio; Complete Time: 14:59 [facility] 11/22 12:22 Order name: EKG; Complete Time: 12:23 [facility] 11/22 12:22 Order name: Cardiac monitoring; Complete Time: 12: [facility] 11/22 12:22 Order name: EKG - Nurse/Tech; Complete Time: 14:01 [facility] 11/22 12:22 Order name: IV Saline Lock; Complete Time: 12:26 [facility] 11/22 12:22 Order name: Labs collected and sent; Complete Time: 12: [facility] 11/22 12:22 Order name: O2 Per Protocol; Complete Time: 12: [facility] 11/22 12:22 Order name: O2 Sat Monitoring; Complete Time: 12:27 [facility] Administered Medications: 13:20 Drug: Zofran (Ondansetron) 4 mg Route: IVP; Site: right antecubital; 3 13:43 Follow up: Response: Nausea is decreased 3 13:20 Drug: Meclizine 25 mg Route: PO; 3 13:43 Follow up: Response: Marked relief of symptoms 3 13:20 Drug: NS 0.9% 1000 ml Route: IV; Rate: 1 bolus; Site: right antecubital; eh3 13:49 Follow up: IV Status: Completed infusion; IV Intake: 1000ml eh3 Disposition Summary: 11/22/21 15:58 Discharge Ordered Location: Home gabi Condition: Stable gabi Diagnosis - Vertigo jmm Followup: marito - With: Private Physician - When: 2 - 3 days - Reason: Recheck today's complaints, Continuance of care, Re-evaluation by your physician Discharge Instructions: - Discharge Summary Sheet gabi - Vertigo [facility] Forms: - Medication Reconciliation Form [facility] - Thank You Letter gabi - Antibiotic Education gabi - Prescription Opioid Use [facility] Prescriptions: - Meclizine 25 mg Oral Tablet - take 1 tablet by ORAL route every 8 hours As needed; 30 tablet; Refills: 0, [facility] Product Selection Permitted Signatures: Dispatcher [employer] Lester Stallworth PA PA jmm Hall, Erin, RN RN 3
[2021-11-23 00:30] VITALS: BP 103/77; TEMP 99.3; O2SAT 97
--- NOTE | 2021-11-23 17:11 | EKG ---
Test Date: 2021-11-22 Test Time: 13:46:51 Inside Sales Consultant: SHAYNE MEASUREMENT RESULTS: Intervals: Rate: 146 [place]: QRSD: 162 QT: 220 QTc: 342 [place]: P: [place]: QRS: 209 T: 235 INTERPRETIVE STATEMENTS: Suspect arm lead reversal, interpretation assumes no reversal Undetermined rhythm Nonspecific intraventricular block Lateral infarct, age undetermined Inferior infarct, age undetermined Abnormal ECG Compared to ECG 11/23/2018 09:54:41 Myocardial infarct finding now present Sinus rhythm no longer present Left-axis deviation no longer present Left ventricular hypertrophy no longer present Early repolarization no longer present Electronically Signed On 11-23-21 17:06:57 CDT by Bj Vang
== END 2021-11-22 16:24 | disposition home or self-care (01) ==
LOC: ER 12:00
DX: R42 Dizziness and giddiness (principal); R11.2 Nausea with vomiting, unspecified; I10 Essential (primary) hypertension; G40.909 Epilepsy, unspecified, not intractable, without status epilepticus; E03.9 Hypothyroidism, unspecified; Z88.5 Allergy status to narcotic agent
CPT/HCPCS: 93005; 85025; 80048; 36415; 83735; 85610; 80076; 84484; 83880; 70450; 72125; 70496; 70498; 71045; 96374; 99284; Q9967; J8597; J7030; J2405

== ENCOUNTER 2021-12-04 19:35 | Emergency (ER) | payer OTHER ==
--- OUTSIDE RECORDS SUMMARY | 2021-12-04 19:52 | XMS REPORT | Continuity of Care Document ---
:1965 Author Organization [facility] t Address [address] [place] [address] Care Team Providers Name Role Phone Lincoln, Sachin Primary Care Physician Markos Mackay Attending Clinician Ting Mendoza MA Attending Clinician Unavailable DELORES RODRIGUES Attending Clinician Unavailable MARKOS MACKAY Attending Clinician Unavailable Doctor Unassigned, Mcgovern Attending Clinician Unavailable Mirella RN, Nika Koch Attending Clinician Unavailable DAISY, SENDMELISSA K.H. Attending Clinician Unavailable Daisy VELASCO Sendmelissa K.H. 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 (disorder) (disorder) Active Problem 11/27/2021 [facility] Essential Essential Problem Active 2021-11-27 Memoria tremor tremor 04:05:41 l (disorder) (disorder) He rmann Active Problem 11/27/2021 [facility] History of History Problem Active 2021-11-27 Memoria - of - 04:05:41 l subarachno subarachno He rmann id id hemorrhage hemorrhage (context-d (context-d ependent ependent category) category) Active Problem 11/27/2021 [facility] Hypertensi Problem Active 2021-11-27 M emoria ve Hypertensi 04:05:41 l disorder, ve [place] systemic disorder, arterial systemic (disorder) arterial (disorder) Active Problem 11/27/2021 [facility] Hypothyroi Hypothyro Problem Active 2021-11-27 Memoria dism idism 04:05:41 l (disorder) (disorder) He rmann Active Problem 11/27/2021 [facility] Tremor Tremor Problem Active 2021-11-27 Jose Daniel irasema (finding) (finding) 04:05:41 l Active [place] Problem 11/27/2021 [facility] Vertigo Vertigo Problem Active 2021-11-27 Me moria (finding) (finding) 04:05:41 l Active [place] Problem 11/27/2021 [facility] No known No known Disease Unive rs active active ity of problems problems [facility] Allergies, Adverse Reactions, Alerts Allergy Allergy Status [...] vers NE (PF) 3-30 ity of 00:00: [address] NO KNOWN Drug Active [facility] ALLERGIE Class ity of S [facility] Demerol Demerol Active Erika Newman Social History Social Habit Start Date Stop Date Quantity Comments Source Exposure to Not sure [facility] SARS-CoV-2 [facility] (event) [place] Alcohol intake 2019-09-19 2019-09-19 Ex-drinker [facility] 00:00:00 00:00:00 (finding) [facility] Tobacco use and 2019-09-19 2019-09-19 Never used Universit y of exposure 00:00:00 00:00:00 [facility] Sex Ass[birth year] Universit y of 00:00:00 00:00:00 [facility] Smoking Status Start Date Stop Date Source Social History [facility] Medications Ordered Filled Start Stop Current Ordering Indication Dosage Frequency Signature Comments Components Source Medication Medication Date Date Medication? Clinician (SIG) Name Name meclizine Yes 12.5 mg = Mem oria 12.5 mg 9-15 1 tab, PO, l oral tablet 16:55: BID, X 14 H , # 28 tab, 1 Refill(s), Pharmacy: [facility], 154.94, cm, 11/24/21 11:34:00 CDT, Height, 69.091, kg, 11/24/21 11:34:00 CDT, Weight Take 1.5 No tablets by 9-06 mouth 00:00: nightly 00 Take 1.5 2021-0 No tablets by 9-06 mouth 00:00: nightly 00 Take 1 2021-0 No tablet by 8-24 mouth daily 00:00: 00 Take 1 2021-0 No tablet by 8-24 mouth daily 00:00: 00 Take 1 2022-0 No tablet by 8- mouth daily 00:00: 00 &lt 2022-0 No 8-05 00:00: 00 &lt 2022-0 No 250 8-05 00:00: 00 Dose 2022-0 No Unknown 8-05 00:00: 00 Dose 2022-0 No Unknown 8- 00:00: 00 &lt 2022-0 No 8-05 00:00: 00 &lt 2022-0 No 250 8-05 00:00: 00 Dose 2022-0 No Unknown 8-05 00:00: 00 Dose 2022-0 No Unknown 8-05 00:00: 00 &lt 2022-0 No 8-05 00:00: 00 &lt 2022-0 No 250 8-05 00:00: 00 Dose 2022-0 No Unknown 8-05 00:00: 00 Dose 2022-0 No Unknown 8 00:00: 00 primidone 2022-0 No 1mg 50 mg 8- tablet 00:00: 00 &lt 2022-0 No 500 10-11 00:00: 00 Take 1 2022-0 No tablet by 8 mouth daily 00:00: 00 Take 1 2022-0 No capsule by 8 mouth at 00:00: bedtime 00 &lt 2022-0 No 20 10-11 00:00: 00 Dose 2022-0 No Unknown 10-11 00:00: 00 primidone 2022-0 No 1mg 50 mg 8- tablet 00:00: 00 &lt 2022-0 No 500 10-11 00:00: 00 Take 1 2022-0 No tablet by 8- mouth daily 00:00: 00 Take 1 2022-0 No capsule by 8- mouth at 00:00: bedtime 00 &lt 2022-0 No 20 10-11 00:00: 00 Dose 2022-0 No Unknown 10-11 00:00: 00 primidone 2022-0 No 1mg 50 mg 8-02 tablet 00:00: 00 &lt 2022-0 No 500 10-11 00:00: 00 Take 1 2022-0 No tablet by 8- mouth daily 00:00: 00 Take 1 2022-0 No capsule by 8 mouth at 00:00: bedtime 00 &lt 2022-0 No 20 8- 00:00: 00 Dose 2022-0 No Unknown 8- 00:00: 00 Take 1 2-0 No tablet by 7-29 mouth daily 00:00: 00 &lt 2022-0 No 10-07 00:00: 00 Dose 2022-0 No Unknown 10-07 00:00: 00 Take 1.5 2022-0 No tablets by 7-29 mouth 00:00: nightly 00 Take 1 2-0 No tablet by 7-29 mouth daily 00:00: 00 &lt 2022-0 No 7 00:00: 00 Dose 2022-0 No Unknown 10-07 00:00: 00 Take 1.5 2-0 No tablets by 7- mouth 00:00: nightly 00 Take 1 2-0 No tablet by 7-29 mouth daily 00:00: 00 &lt 2022-0 No 10-07 00:00: 00 Dose 2022-0 No Unknown 10-07 00:00: 00 Take 1.5 2-0 No tablets by 7-29 mouth 00:00: nightly 00 Dose 2022-0 No Unknown 7- 00:00: 00 Dose 2022-0 No 20 Unknown 7- 00:00: 00 &lt 2022-0 No 7-13 00:00: 00 Dose 2022-0 No Unknown 7-13 00:00: 00 &lt 2022-0 No 7-13 00:00: 00 Dose 2022-0 No Unknown 7-13 00:00: 00 Dose 2022-0 No 20 Unknown 7-13 00:00: 00 &lt 2022-0 No 7-13 00:00: 00 Dose 2022-0 No Unknown 7-13 00:00: 00 &lt 2022-0 No 7-13 00:00: 00 Dose 2022-0 No Unknown 7-13 00:00: 00 Dose 2022-0 No 20 Unknown [...] Keppra 500 2022-0 No 2mg mg tablet 28 00:00: 00 levothyroxi 2022-0 No 1mcg ne [...] 00:00: orothiazide 00 12.5 mg tablet famotidine 2-0 No 1mg 20 mg 5-28 tablet 00:00: 00 lamotrigine 2022-0 No 1mg 200 mg 5-28 tablet 00:00: 00 lamotrigine 2022-0 No 1mg 100 mg 5-28 tablet 00:00: 00 Keppra 500 2-0 No 2mg mg tablet 08-06 00:00: 00 levothyroxi 2022-0 No 1mcg ne 137 mcg 5-28 tablet 00:00: 00 prazosin 1 2-0 No 1mg mg capsule -28 00:00: 00 gabapentin 2022-0 No 1mg 300 mg 5-28 capsule 00:00: 00 primidone 2022-0 Yes 50 mg = 1 Mem oria 50 mg oral 4-20 tab, PO, l tablet 20:38: Bedtime, # Evonne nn 00 90 tab, 1 Refill(s), Pharmacy: [email or web address], 157.48, cm, 01/27/21 9:27:00 [employer], Height, 95.455, kg, 01/27/21 9:27:00 [employer], Weight primidone 2-0 Yes 50 mg = 1 Mem oria 50 mg oral 4-20 tab, PO, l tablet 20:38: Bedtime, # Evonne nn 00 90 tab, 1 Refill(s), Pharmacy: [email or web address], 157.48, cm, 01/27/21 9:27:00 [employer], Height, 95.455, kg, 01/27/21 9:27:00 [employer], Weight Dose 2022-0 No Unknown 4-20 00:00: 00 [...] gluconate 00:00: 0.12 % 00 mouthwash triamcinolo 2-0 No 1% ne 2-16 acetonide [...] gluconate 00:00: 0.12 % 00 mouthwash famotidine 2022-0 No 1mg 20 mg 2-09 [...] prazosin 1 2022-0 No 1mg mg capsule 2- 00:00: 00 prazosin 1 2022-0 No 1mg mg capsule 2-09 00:00: 00 famotidine 2022-0 No 1mg 20 mg 2-09 tablet 00:00: 00 lisinopril 2022-0 No 1mg 20 2-09 mg-hydrochl 00:00: orothiazide 00 12.5 mg tablet amlodipine 2-0 No 1mg 10 mg 2-09 tablet 00:00: 00 paroxetine 2022-0 No 15mg 40 mg 2-09 tablet 00:00: 00 Keppra 500 2-0 No 2mg mg tablet 2- 00:00: 00 [...] prazosin 1 2022-0 No 1mg mg capsule 18 00:00: 00 paroxetine 2022-0 No 15mg 40 mg 1-18 tablet 00:00: 00 prazosin 1 2-0 No 1mg mg capsule -18 00:00: 00 paroxetine 2022-0 No 15mg 40 mg 1-13 tablet 00:00: 00 prazosin 1 2-0 No 1mg mg capsule 1-13 00:00: 00 paroxetine 2022-0 No 15mg 40 mg 1-13 tablet 00:00: 00 prazosin 1 2-0 No 1mg mg capsule 1- 00:00: 00 paroxetine 2022-0 No 15mg 40 mg 1-13 tablet 00:00: 00 prazosin 1 2-0 No 1mg mg capsule - 00:00: 00 amlodipine 2022-0 No 1mg 10 mg 1-04 tablet 00:00: 00 lisinopril 2022-0 No 1mg 20 1-04 mg-hydrochl 00:00: orothiazide 00 12.5 mg tablet famotidine 2-0 No 1mg 20 mg 1-04 tablet 00:00: 00 Keppra 500 2022-0 No 2mg mg tablet 04 00:00: 00 levothyroxi 2022-0 No 1mcg ne 137 mcg 1-04 tablet 00:00: 00 gabapentin 2022-0 No 1mg 300 mg 1-04 capsule 00:00: 00 amlodipine 2022-0 No 1mg 10 mg 1-04 tablet 00:00: 00 lisinopril 2022-0 No 1mg 20 1-04 mg-hydrochl 00:00: orothiazide 00 12.5 mg tablet famotidine 2022-0 No 1mg 20 mg 1-04 tablet 00:00: 00 Keppra 500 2022-0 No 2mg mg tablet -04 00:00: 00 levothyroxi 2022-0 No 1mcg ne 137 mcg 1-04 tablet 00:00: 00 gabapentin 2022-0 No 1mg 300 mg 1-04 capsule 00:00: 00 amlodipine 2022-0 No 1mg 10 mg 1-04 tablet 00:00: 00 lisinopril 2022-0 No 1mg 20 1-04 mg-hydrochl 00:00: orothiazide 00 12.5 mg tablet famotidine 2021-0 No 1mg 20 mg 1-04 tablet 00:00: 00 Keppra 500 2021-0 No 2mg mg tablet 03-15 00:00: 00 levothyroxi 2021-0 No 1mcg ne 137 mcg 1-04 tablet 00:00: 00 gabapentin 2021-0 No 1mg 300 mg 1-04 capsule 00:00: 00 paroxetine 2020-1 No 15mg 40 mg 2-16 tablet 00:00: 00 prazosin 1 2020-1 No 1mg mg capsule 2-16 00:00: 00 paroxetine 2020-1 No 15mg 40 mg 2-16 tablet 00:00: 00 prazosin 1 2020-1 No 1mg mg capsule 2-16 00:00: 00 paroxetine 2020-1 No 15mg 40 mg 2-16 tablet 00:00: 00 prazosin 1 2020-1 No 1mg mg capsule 2-16 00:00: 00 propranolol 2020- No 10 mg = 1 M emoria 10 mg oral 1-29 tab, PO, l tablet 21:30: BID, # 60 [place] n 00 tab, 3 Refill(s), Pharmacy: [facility], 157.48, cm, 01/27/21 9:27:00 [employer], Height, 95.455, kg, 01/27/21 9:27:00 [employer], Weight propranolol 2020- No 10 mg = 1 M emoria 10 mg oral 1-29 tab, PO, l tablet 21:30: BID, # 60 [place] n 00 tab, 3 Refill(s), Pharmacy: [facility], 157.48, cm, 01/27/21 9:27:00 [employer], Height, 95.455, kg, 01/27/21 9:27:00 [employer], Weight paroxetine 2020- No 15mg 40 mg -27 tablet 00:00: 00 risperidone 2020-1 No 1mg 3 mg tablet 04-07 00:00: 00 amlodipine 2020-1 No 1mg 10 mg -27 tablet 00:00: 00 prazosin 1 2020-1 No 1mg mg capsule 04-07 00:00: 00 paroxetine 2020-1 No 15mg 40 mg -27 tablet 00:00: 00 risperidone 2020-1 No 1mg 3 mg tablet 04-07 00:00: 00 amlodipine 2020-03 No 1mg 10 mg 27 tablet 00:00: 00 prazosin 1 2020-03 No 1mg mg capsule 04-07 00:00: 00 paroxetine 2020-03 No 15mg 40 mg 04-07 tablet 00:00: 00 risperidone 2020-03 No 1mg 3 mg tablet 04-07 00:00: 00 amlodipine 2020-03 No 1mg 10 mg 27 tablet 00:00: 00 prazosin 1 2020-03 No 1mg mg capsule 04-07 00:00: 00 primidone 2020-03 Yes 50 mg = 1 Mem oria 50 mg oral 1-18 tab, PO, l tablet 15:43: TID, # 90 [place] n 00 tab, 3 Refill(s), Pharmacy: [facility], 157.48, cm, 01/27/21 9:27:00 [employer], Height, 95.455, kg, 01/27/21 9:27:00 [employer], Weight primidone 2020-03 Yes 50 mg = 1 Mem oria 50 mg oral 1-18 tab, PO, l tablet 15:43: TID, # 90 [place] n 00 tab, 3 Refill(s), Pharmacy: [facility], 157.48, cm, 01/27/21 9:27:00 [employer], Height, 95.455, kg, 01/27/21 9:27:00 [employer], Weight risperidone 2020-03 No 1mg 3 mg tablet 03-12 00:00: 00 paroxetine 2020- No 15mg 40 mg 03-12 tablet 00:00: 00 prazosin 1 2020-03 No 1mg mg capsule 03-12 00:00: 00 risperidone 2020- No 1mg 3 mg tablet 03-12 00:00: 00 paroxetine 2020- No 15mg 40 mg 03-12 tablet 00:00: 00 prazosin 1 2020-03 No 1mg mg capsule 03-12 00:00: 00 risperidone 2020-1 No 1mg 3 mg tablet 03-12 00:00: 00 paroxetine 2020- No 15mg 40 mg 03-12 tablet 00:00: 00 prazosin 1 2020- No 1mg mg capsule 03-12 00:00: 00 primidone 2020-1 No 50 mg = 1 Mem oria 50 mg oral 0-11 tab, PO, l tablet 19:49: Bedtime, # Evonne nn 00 90 tab, 3 Refill(s), Pharmacy: [facility] 1000, 160.02, cm, 12/16/20 10:35:00 CDT, Height, 98.636, kg, 12/16/20 10:35:00 CDT, Weight primidone 2020- No 50 mg = 1 Mem oria 50 mg oral 0-11 tab, PO, l tablet 19:49: Bedtime, # Evonne nn 00 90 tab, 3 Refill(s), Pharmacy: [facility] 1000, 160.02, cm, 12/16/20 10:35:00 CDT, Height, 98.636, kg, 12/16/20 10:35:00 CDT, Weight risperidone 2020-1 No 1mg 3 mg tablet 0-04 00:00: 00 paroxetine 1-1 No 15mg 40 mg 0-04 tablet 00:00: 00 prazosin 1 1-1 No 1mg mg capsule 0-04 00:00: 00 risperidone 1-1 No 1mg 3 mg tablet 0-04 00:00: 00 paroxetine 1-1 No 15mg 40 mg 0-04 tablet 00:00: 00 prazosin 1 1-1 No 1mg mg capsule 0-04 00:00: 00 risperidone 1-1 No 1mg 3 mg tablet 004 00:00: 00 paroxetine 1-1 No 15mg 40 mg 0-04 tablet 00:00: 00 prazosin 1 2021-1 No 1mg mg capsule 0-04 00:00: 00 paroxetine 2021-0 No 1mg 40 mg 9- tablet 00:00: 00 risperidone 1-0 No 1mg 3 mg tablet 11-11 00:00: 00 prazosin 1 1-0 No 1mg mg capsule 11-11 00:00: 00 paroxetine 2021-0 No 1mg 40 mg - tablet 00:00: 00 risperidone 2021-0 No 1mg 3 mg tablet 11-11 00:00: 00 prazosin 1 2021-0 No 1mg mg capsule 11-11 00:00: 00 paroxetine 2021-0 No 1mg 40 mg -02 tablet 00:00: 00 risperidone 1-0 No 1mg 3 mg tablet 11-11 00:00: 00 prazosin 1 1-0 No 1mg mg capsule 11-11 00:00: 00 lisinopril 2021-0 No 1mg 20 8-17 mg-hydrochl 00:00: orothiazide 00 12.5 mg tablet amlodipine 1-0 No 1mg 10 mg 8-17 tablet 00:00: 00 Keppra 500 1-0 No 2mg mg tablet 10-26 00:00: 00 levothyroxi 2021-0 No 1mcg ne 137 mcg 8-17 tablet 00:00: 00 gabapentin 2021-0 No 1mg 300 mg 8-17 capsule 00:00: 00 lisinopril 2021-0 No 1mg 20 8-17 mg-hydrochl 00:00: orothiazide 00 12.5 mg tablet amlodipine 1-0 No 1mg 10 mg 8-17 tablet 00:00: 00 Keppra 500 1-0 No 2mg mg tablet 10-26 00:00: 00 levothyroxi 1-0 No 1mcg ne 137 mcg 8-17 tablet 00:00: 00 gabapentin 2021-0 No 1mg 300 mg 8-17 capsule 00:00: 00 lisinopril 2021-0 No 1mg 20 8-17 mg-hydrochl 00:00: orothiazide 00 12.5 mg tablet amlodipine 1-0 No 1mg 10 mg 8-17 tablet 00:00: 00 Keppra 500 1-0 No 2mg mg tablet 10-26 00:00: 00 levothyroxi 2021-0 No 1mcg ne 137 mcg 8-17 tablet 00:00: 00 gabapentin 2021-0 No 1mg 300 mg 8-17 capsule 00:00: 00 risperidone 2021-0 No 1mg 3 mg tablet 10-18 00:00: 00 paroxetine 2021-0 No 1mg 40 mg - tablet 00:00: 00 prazosin 1 2021-0 No 1mg mg capsule 10-18 00:00: 00 risperidone 2021-0 No 1mg 3 mg tablet 10-18 00:00: 00 paroxetine 2021-0 No 1mg 40 mg 8- tablet 00:00: 00 prazosin 1 2021-0 No 1mg mg capsule 10-18 00:00: 00 risperidone 2021-0 No 1mg 3 mg tablet 10-18 00:00: 00 paroxetine 2021-0 No 1mg 40 mg 8- tablet 00:00: 00 prazosin 1 1-0 No 1mg mg capsule 10-18 00:00: 00 lisinopril 2021-0 No 1mg 20 7-15 mg-hydrochl 00:00: orothiazide 00 12.5 mg tablet lisinopril 2021-0 No 1mg 20 7-15 mg-hydrochl 00:00: orothiazide 00 12.5 mg tablet lisinopril 1-0 No 1mg 20 7-15 mg-hydrochl 00:00: orothiazide 00 12.5 mg tablet risperidone 1-0 No 1mg 3 mg tablet 09-20 00:00: 00 paroxetine 2021-0 No 1mg 40 mg 7-12 tablet 00:00: 00 prazosin 1 2021-0 No 1mg mg capsule 09-20 00:00: 00 [...] prazosin 1 1-0 No 1mg mg capsule 7 00:00: 00 Keppra 500 2021-0 No 2mg mg tablet 6 00:00: 00 Keppra 500 2021-0 No 1mg mg tablet 6 00:00: 00 Keppra 500 2021-0 No 2mg mg tablet 6 00:00: 00 Keppra 500 2021-0 No 1mg mg tablet 6 00:00: 00 Keppra 500 2021-0 No 2mg mg tablet 6 00:00: 00 Keppra 500 2021-0 No 1mg mg tablet 6- 00:00: 00 ketoconazol 2021-0 No 1% e 2 % 6- topical 00:00: cream 00 ketoconazol 2021-0 No [...] 40 mg 5-17 tablet 00:00: 00 risperidone 1-0 No 1mg 3 mg tablet 5-17 00:00: 00 prazosin 1 1-0 No 1mg mg capsule 5-17 00:00: 00 paroxetine 1-0 No 1mg 40 mg 5-17 tablet 00:00: 00 risperidone 1-0 No 1mg 3 mg tablet 5-17 00:00: 00 prazosin 1 1-0 No 1mg mg capsule 5-17 00:00: 00 paroxetine 1-0 No 1mg 40 mg 5-17 tablet 00:00: 00 risperidone 1-0 No 1mg 3 mg tablet 5- 00:00: 00 prazosin 1 1-0 No 1mg mg capsule - 00:00: 00 lamotrigine 1-0 No 1mg 200 mg 4-28 tablet 00:00: 00 lamotrigine 1-0 No 1mg 100 mg 4-28 tablet 00:00: [...] orothiazide 00 12.5 mg tablet Keppra 500 2021-0 No 1mg mg tablet 3-24 00:00: 00 Keppra 500 2021-0 No 1mg mg tablet 3-24 00:00: 00 Keppra 500 2021-0 No 1mg mg tablet 3-24 00:00: 00 risperidone 2021-0 No 1mg 3 mg tablet 3-15 00:00: 00 paroxetine 2021-0 No 1mg 40 mg 3-15 tablet 00:00: 00 risperidone 1-0 No 1mg 3 mg tablet 3-15 00:00: [...] 3-04 12.5 mg 00:00: tablet 00 amlodipine 1-0 No 1mg 10 mg 3-04 tablet 00:00: 00 lisinopril 2021-0 No 1mg 10 mg 3-04 tablet 00:00: 00 lamotrigine 2021-0 No 1mg 100 mg 3-04 tablet 00:00: 00 levothyroxi 2021-0 No 1mcg ne 137 mcg 3-01 tablet 00:00: 00 levothyroxi 2021-0 No 1mcg ne 137 mcg 3-01 tablet 00:00: 00 levothyroxi 2021-0 No 1mcg ne 137 mcg 3-01 tablet 00:00: 00 UNITHROID 1-0 Yes Univers 137 mcg 3-01 ity of tablet 00:00: [address] UNITHROID 2021-0 Yes Univers 137 mcg 3-01 ity of tablet 00:00: [address] UNITHROID 2021-0 Yes Univers 137 mcg 3-01 ity of tablet 00:00: [place] 00 [facility] UNITHROID 2021-0 Yes Univers 137 mcg 3-01 ity of tablet 00:00: [place] 00 [facility] UNITHROID 2021-0 Yes Univers 137 mcg 3-01 ity of tablet 00:00: [place] 00 [facility] PARoxetine 1-0 Yes 40mg Take 40 mg U nivers 40 mg 2-12 by mouth ity of tablet 00:00: every [place] morning. Medical Branch PARoxetine 2021-0 Yes 40mg Take 40 mg U nivers 40 mg 2-12 by mouth ity of tablet 00:00: every [place] morning. Medical Branch PARoxetine 1-0 Yes 40mg Take 40 mg U nivers 40 mg 2-12 by mouth ity of tablet 00:00: every [place] morning. Medical Branch PARoxetine 1-0 Yes 40mg Take 40 mg U nivers 40 mg 2-12 by mouth ity of tablet 00:00: every [place] morning. Medical Branch PARoxetine 1-0 Yes 40mg Take 40 mg U nivers 40 mg 2-12 by mouth ity of tablet 00:00: every [place] morning. Medical Branch risperidone 1-0 No 1mg 3 mg tablet 2-10 00:00: 00 risperidone 1-0 No 1mg 3 mg tablet 2-10 00:00: 00 risperidone 1-0 No 1mg 3 mg tablet 2-10 00:00: 00 hydroCHLORO 1-0 Yes 12.5mg Take 12.5 Univers thiazide 2-10 mg by ity of 12.5 mg 00:00: mouth [place] tablet 00 every Medical morning. Branch lisinopriL 2020-0 Yes 10mg Take 10 mg U nivers 10 mg 2-10 by mouth ity of tablet 00:00: every [place] morning. Medical Branch risperiDONE 1-0 Yes 3mg Take 3 mg U nivers 3 mg tablet 2-10 by mouth ity of 00:00: daily. 00 Medical Branch amLODIPine 1-0 Yes 10mg Take 10 mg U nivers 10 mg 2-10 by mouth ity of tablet 00:00: every [place] [address] morning. Medical Branch hydroCHLORO 1-0 Yes 12.5mg Take 12.5 Univers thiazide 2-10 mg by ity of 12.5 mg 00:00: mouth [place] tablet 00 every Medical morning. Branch lisinopriL 2021-0 Yes 10mg Take 10 mg U nivers 10 mg 2-10 by mouth ity of tablet 00:00: every [place] 00 morning. Medical Branch risperiDONE 1-0 Yes 3mg Take 3 mg U nivers 3 mg tablet 2-10 by mouth ity of 00:00: daily. Medical Branch amLODIPine 2020-0 Yes 10mg Take 10 mg U nivers 10 mg 2-10 by mouth ity of tablet 00:00: every [place] 00 morning. Medical Branch hydroCHLORO 2020-0 Yes 12.5mg Take 12.5 Univers thiazide 2-10 mg by ity of 12.5 mg 00:00: mouth [place] tablet 00 every Medical morning. Branch lisinopriL 2020-0 Yes 10mg Take 10 mg U nivers 10 mg 2-10 by mouth ity of tablet 00:00: every [place] 00 morning. Medical Branch risperiDONE 2020-0 Yes 3mg Take 3 mg U nivers 3 mg tablet 2-10 by mouth ity of 00:00: daily. [place] [facility] amLODIPine 2020-0 Yes 10mg Take 10 mg U nivers 10 mg 2-10 by mouth ity of tablet 00:00: every [place] morning. Medical Branch hydroCHLORO 2020-0 Yes 12.5mg Take 12.5 Univers thiazide 2-10 mg by ity of 12.5 mg 00:00: mouth [place] tablet 00 every Medical morning. Branch lisinopriL 2020-0 Yes 10mg Take 10 mg U nivers 10 mg 2-10 by mouth ity of tablet 00:00: every [place] morning. Medical Branch risperiDONE 1-0 Yes 3mg Take 3 mg U nivers 3 mg tablet 2-10 by mouth ity of 00:00: daily. [place] [facility] amLODIPine 2020-0 Yes 10mg Take 10 mg U nivers 10 mg 2-10 by mouth ity of tablet 00:00: every [place] morning. Medical Branch hydroCHLORO 1-0 Yes 12.5mg Take 12.5 Univers thiazide 2-10 mg by ity of 12.5 mg 00:00: mouth [place] tablet 00 every Medical morning. Branch lisinopriL 1-0 Yes 10mg Take 10 mg U nivers 10 mg 2-10 by mouth ity of tablet 00:00: every [place] morning. Medical Branch risperiDONE 1-0 Yes 3mg Take 3 mg U nivers 3 mg tablet 2-10 by mouth ity of 00:00: daily. Medical Branch amLODIPine 2020-0 Yes 10mg Take 10 mg U nivers 10 mg 2-10 by mouth ity of tablet 00:00: every [place] [address] morning. Medical Branch hydrOXYzine Yes TAKE 1 Univ ers 50 mg 2-06 TABLET BY ity of tablet 00:00: MOUTH 3 [place] TIMES A Medical DAY Branch NEEDED FOR ANXIETY risperiDONE 2020-0 Yes 2mg Take 2 mg U nivers 2 mg tablet 2-06 by mouth ity of 00:00: at [place] [address] bedtime. Medical Branch hydrOXYzine Yes TAKE 1 Univ ers 50 mg 2-06 TABLET BY ity of tablet 00:00: MOUTH 3 [place] TIMES A Medical DAY Branch NEEDED FOR ANXIETY risperiDONE 2020-0 Yes 2mg Take 2 mg U nivers 2 mg tablet 2-06 by mouth ity of 00:00: at [place] [address] bedtime. Medical Branch hydrOXYzine Yes TAKE 1 Univ ers 50 mg 2-06 TABLET BY ity of tablet 00:00: MOUTH 3 [place] TIMES A Medical DAY Branch NEEDED FOR ANXIETY risperiDONE 2020-0 Yes 2mg Take 2 mg U nivers 2 mg tablet 2-06 by mouth ity of 00:00: at [place] [address] bedtime. Medical Branch hydrOXYzine 2020- Yes TAKE 1 Univ ers 50 mg 2-06 TABLET BY ity of tablet 00:00: MOUTH 3 [place] TIMES A Medical DAY Branch NEEDED FOR ANXIETY risperiDONE 2020-0 Yes 2mg Take 2 mg U nivers 2 mg tablet 2-06 by mouth ity of 00:00: at [place] [address] bedtime. Medical Branch hydrOXYzine Yes TAKE 1 Univ ers 50 mg 2-06 TABLET BY ity of tablet 00:00: MOUTH 3 [place] TIMES A Medical DAY Branch NEEDED FOR ANXIETY risperiDONE 2020-0 Yes 2mg Take 2 mg U nivers 2 mg tablet 2-06 by mouth ity of 00:00: at [place] [address] bedtime. Medical Branch paroxetine 2020-0 No 1mg 40 mg 2-03 tablet 00:00: 00 Trileptal 2020-0 No 1mg 150 mg 2-03 tablet 00:00: 00 risperidone 2020-0 No 1mg 2 mg tablet 2-03 00:00: [...] mg by ity of tablet 00:00: mouth [address] [place] [address] ([facility]) Medical times Branch daily. OXcarbazepi 2021-0 Yes 150mg Take 150 U nivers ne 150 mg 2-03 mg by ity of tablet 00:00: [address] ([facility]) Medical times Branch daily. OXcarbazepi 2021-0 Yes 150mg Take 150 U nivers ne 150 mg 2-03 mg by ity of tablet 00:00: [address] ([facility]) Medical times Branch daily. OXcarbazepi 2021-0 Yes 150mg Take 150 U nivers ne 150 mg 2-03 mg by ity of tablet 00:00: [facility] 2 [place] ([facility]) Medical times Branch daily. OXcarbazepi 2021-0 Yes 150mg Take 150 U nivers ne 150 mg 2-03 mg by ity of tablet 00:00: [address] ([facility]) Medical times Branch daily. Keppra 500 1-0 No 1mg mg tablet 1-21 00:00: 00 Keppra 500 1-0 No 1mg mg tablet 1-21 00:00: 00 Keppra 500 1-0 No 1mg mg tablet 1-21 00:00: 00 ibuprofen 2021-0 No 1mg 800 [...] mouth (three) Medical times Branch daily. hydrochloro 2021-0 No 1mg thiazide 1-14 12.5 [...] 1-14 12.5 mg 00:00: tablet 00 lisinopril 2020-0 No 1mg 10 mg 1-14 tablet 00:00: 00 amlodipine 2020-0 No 1mg 10 mg 1-14 tablet 00:00: 00 paroxetine 2020-0 No 1mg 40 mg 1-14 tablet 00:00: 00 risperidone 2020-0 No 1mg 2 mg tablet 1-14 00:00: 00 hydroxyzine 2020-0 No 1mg HCl 50 mg 1-14 tablet 00:00: 00 levETIRAcet 2019-03 Yes TAKE 1 Univ [facility] am 500 mg 2-31 TABLET BY ity o f tablet 00:00: MOUTH [place] 00 EVERY Medical MORNING Branch AND 2 TABLETS IN THE EVENING levETIRAcet 2019-03 Yes TAKE 1 [facility] am 500 mg 2-31 TABLET BY ity o f tablet 00:00: MOUTH [place] 00 EVERY Medical MORNING Branch AND 2 TABLETS IN THE EVENING levETIRAcet 2019-03 Yes TAKE 1 [facility] am 500 mg 2-31 TABLET BY ity o f tablet 00:00: MOUTH [place] 00 EVERY Medical MORNING Branch AND 2 TABLETS IN THE EVENING levETIRAcet 2019-03 Yes TAKE 1 [facility] am 500 mg 2-31 TABLET BY ity o f tablet 00:00: MOUTH [place] 00 EVERY Medical MORNING Branch AND 2 TABLETS IN THE EVENING levETIRAcet 2019-03 Yes TAKE 1 Univ ers am 500 mg 2-31 TABLET BY ity o f tablet 00:00: MOUTH [place] 00 EVERY Medical MORNING Branch AND 2 TABLETS IN THE EVENING paroxetine 2019-03 No 1mg 40 mg 2-14 tablet 00:00: 00 risperidone 2019-1 No 1mg 2 mg tablet 2-14 00:00: 00 hydroxyzine 2019-03 No 1mg HCl 50 mg 2-14 tablet 00:00: 00 paroxetine 2019- No 1mg 40 mg 2-14 tablet 00:00: 00 risperidone 2019-1 No 1mg 2 mg tablet 2-14 00:00: 00 hydroxyzine 2019-03 No 1mg HCl 50 mg 2-14 tablet 00:00: 00 paroxetine 2019- No 1mg 40 mg 2-14 tablet 00:00: 00 risperidone 2019-1 No 1mg 2 mg tablet 2-14 00:00: [...] by ity of tablet 00:00: mouth 2 [place] ([facility]) Medical times Branch daily. buPROPion 2019-03 Yes 75mg Take 75 mg Un jaye 75 mg 2-10 by mouth 2 ity of tablet 00:00: (two) [place] times Medical daily. Branch lamoTRIgine 2019-03 Yes 100mg Take 100 U nivers 100 mg 2-10 mg by ity of tablet 00:00: mouth 2 [place] ([facility]) Medical times Branch daily. buPROPion 2019-03 Yes 75mg Take 75 mg Un jaye 75 mg 2-10 by mouth 2 ity of tablet 00:00: ([facility]) [place] times Medical daily. Branch lamoTRIgine 2019-03 Yes 100mg Take 100 U nivers 100 mg 2-10 mg by ity of tablet 00:00: mouth 2 [place] ([facility]) Medical times Branch daily. buPROPion 2019- Yes 75mg Take 75 mg Un jaye 75 mg 2-10 by mouth 2 ity of tablet 00:00: (two) [place] 00 times Medical daily. Branch lamoTRIgine 2019-03 Yes 100mg Take 100 U nivers 100 mg 2-10 mg by ity of tablet 00:00: mouth 2 [place] (two) Medical times [place] daily. buPROPion 2019-03 Yes 75mg Take 75 mg Un jaye 75 mg 2-10 by mouth 2 ity of tablet 00:00: (two) [place] times Medical daily. Branch lamoTRIgine 2019-03 Yes 100mg Take 100 U nivers 100 mg 2-10 mg by ity of tablet 00:00: mouth 2 [place] (two) Medical times [place] daily. buPROPion 2019-03 Yes 75mg Take 75 mg Un jaye 75 mg 2-10 by mouth 2 ity of tablet 00:00: (two) [place] [address] times Medical daily. Branch paroxetine 2019-03 No 1mg 40 mg 1-13 tablet 00:00: 00 risperidone 2019- No 1mg 1 mg tablet 1-13 00:00: 00 hydroxyzine 2019-03 No 1mg HCl 50 mg 1-13 tablet 00:00: 00 paroxetine 2019- No 1mg 40 mg 1-13 tablet 00:00: 00 risperidone 2019- No 1mg 1 mg tablet 1-13 00:00: 00 hydroxyzine 2019- No 1mg HCl 50 mg 1-13 tablet 00:00: 00 paroxetine 2019- No 1mg 40 mg 1-13 tablet 00:00: 00 risperidone 2019-1 No 1mg 1 mg tablet 1-13 00:00: 00 hydroxyzine 2019- No 1mg HCl 50 mg 1-13 tablet 00:00: 00 lisinopril 2019- No 1mg 10 mg 0-29 tablet 00:00: 00 hydrochloro 2019- No 1mg thiazide 0-29 12.5 mg 00:00: tablet 00 amlodipine 2019- No 1mg 10 mg 0-29 tablet 00:00: 00 lisinopril 2019- No 1mg 10 mg 0-29 tablet 00:00: 00 hydrochloro 2019- No 1mg thiazide 0-29 12.5 mg 00:00: tablet 00 amlodipine 2019- No 1mg 10 mg 0-29 tablet 00:00: 00 lisinopril 2019- No 1mg 10 mg 0-29 tablet 00:00: 00 hydrochloro 2019-1 No 1mg thiazide 0-29 12.5 mg 00:00: tablet 00 amlodipine 2019-1 No 1mg 10 mg 0-29 tablet 00:00: 00 lamotrigine 2019-1 No 1mg 200 mg 0-27 tablet 00:00: 00 Keppra 500 2019- No 1mg mg tablet 0-27 00:00: 00 lamotrigine 2019-1 No 1mg 200 mg 0-27 tablet 00:00: 00 Keppra 500 2019- No 1mg mg tablet 0-27 00:00: 00 lamotrigine 2019- No 1mg 200 mg 0-27 tablet 00:00: 00 Keppra 500 2019- No 1mg mg tablet 0-27 00:00: 00 Keppra 500 2019- No 1mg mg tablet 0-24 00:00: 00 Keppra 500 2019- No 1mg mg tablet 0-24 00:00: 00 Keppra 500 2019- No 1mg mg tablet 0-24 00:00: 00 paroxetine 2019-1 No 1mg 40 mg 0-13 tablet 00:00: 00 risperidone 2019-1 No 1mg 1 mg tablet 0-13 00:00: 00 Paxil 10 mg 2019-1 No 1mg tablet 0-13 00:00: 00 hydroxyzine 2019-1 No 1mg HCl 50 mg 0-13 tablet 00:00: 00 paroxetine 2019-1 No 1mg 40 mg 0-13 tablet 00:00: 00 risperidone 2019-1 No 1mg 1 mg tablet 0-13 00:00: 00 Paxil 10 mg 2019-1 No 1mg tablet 0-13 00:00: 00 hydroxyzine 2019-1 No 1mg HCl 50 mg 0-13 tablet 00:00: 00 paroxetine 2019-1 No 1mg 40 mg 0-13 tablet 00:00: 00 risperidone 2019-1 No 1mg 1 mg tablet 0-13 00:00: 00 Paxil 10 mg 2019-1 No 1mg tablet 0-13 00:00: 00 hydroxyzine 2019-1 No 1mg HCl 50 mg 0-13 tablet [...] risperidone 2020-0 No 1mg 1 mg tablet 7-23 00:00: 00 lamotrigine 2020-0 No 1mg 200 [...] risperidone 2020-0 No 1mg 1 mg tablet 723 00:00: 00 lamotrigine 2020-0 No 1mg 200 [...] risperidone 2020-0 No 1mg 1 mg tablet 10-01 00:00: 00 lamotrigine 2020-0 No 1mg 200 mg 7-23 tablet 00:00: 00 lamotrigine 2020-0 No 1mg 100 mg 7-23 tablet 00:00: 00 lamotrigine 2020-0 No 1mg 100 mg 7-23 tablet 00:00: 00 lamotrigine 2020-0 No 1mg 200 mg 7-23 tablet 00:00: 00 hydroxyzine 2020-0 No 1mg HCl 25 mg 7-23 tablet 00:00: 00 meloxicam 2020-0 Yes [id number] 7.5mg Take 1 Univers 7.5 mg 7-10 9107 tablet by ity of tablet 00:00: mouth once [place] 00 daily as Medical needed for Branch Pain (scale 7-10). meloxicam 2020-0 Yes [id number] 7.5mg Take 1 Univers 7.5 mg 7-10 9107 tablet by ity of tablet 00:00: mouth once [place] 00 daily as Medical needed for Branch Pain (scale 7-10). meloxicam 2020-0 Yes [id number] 7.5mg Take 1 Univers 7.5 mg 7-10 9107 tablet by ity of tablet 00:00: mouth once [place] 00 daily as Medical needed for Branch Pain (scale 7-10). meloxicam 2020-0 Yes [id number] 7.5mg Take 1 Univers 7.5 mg 7-10 9107 tablet by ity of tablet 00:00: mouth once [place] 00 daily as Medical needed for Branch Pain (scale 7-10). meloxicam 2020-0 Yes [id number] 7.5mg Take 1 Univers 7.5 mg 7-10 9107 tablet by ity of tablet 00:00: mouth once [place] 00 daily as Medical needed for Branch Pain (scale 7-10). meloxicam 2020-0 Yes [id number] 7.5mg Take 1 Univers 7.5 mg 7-10 9107 tablet by ity of tablet 00:00: mouth once [place] 00 daily as Medical needed for Branch Pain (scale 7-10). meloxicam 2020-0 Yes [id number] 7.5mg Take 1 Univers 7.5 mg 7-10 9107 tablet by ity of tablet 00:00: mouth once [place] 00 daily as Medical needed for Branch Pain (scale 7-10). meloxicam 2020-0 Yes [id number] 7.5mg Take 1 Univers 7.5 mg 7-10 9107 tablet by ity of tablet 00:00: mouth once [place] 00 daily as Medical needed for Branch Pain (scale 7-10). meloxicam 2020-0 Yes [id number] 7.5mg Take 1 Univers 7.5 mg 7-10 9107 tablet by ity of tablet 00:00: mouth once [place] 00 daily as Medical needed for Branch Pain (scale 7-10). meloxicam 2020-0 Yes [id number] 7.5mg Take 1 Univers 7.5 mg 7-10 9107 tablet by ity of tablet 00:00: mouth once [place] 00 daily as Medical needed for Branch Pain (scale 7-10). meloxicam 2020-0 Yes [id number] 7.5mg Take 1 Univers 7.5 mg 7-10 9107 tablet by ity of tablet 00:00: mouth once [place] 00 daily as Medical needed for Branch Pain (scale 7-10). meloxicam 2020-0 Yes [id number] 7.5mg Take 1 Univers 7.5 mg 7-10 9107 tablet by ity of tablet 00:00: mouth once [place] 00 daily as Medical needed for Branch Pain (scale 7-10). meloxicam 2020-0 Yes [id number] 7.5mg Take 1 Univers 7.5 mg 7-10 9107 tablet by ity of tablet 00:00: mouth once [place] 00 daily as Medical needed for Branch Pain (scale 7-10). meloxicam 2020-0 Yes [id number] 7.5mg Take 1 Univers 7.5 mg 7-10 9107 tablet by ity of tablet 00:00: mouth once 00 daily as Medical needed for Branch Pain (scale 7-10). meloxicam 2020-0 Yes [id number] 7.5mg Take 1 Univers 7.5 mg 7-10 9107 tablet by ity of tablet 00:00: mouth once 00 daily as Medical needed for Branch Pain (scale 7-10). meloxicam 2020-0 Yes [id number] 7.5mg Take 1 Univers 7.5 mg 7-10 9107 tablet by ity of tablet 00:00: mouth once 00 daily as Medical needed for Branch [...] 10 mEq 00:00: tablet,exte 00 nded release potassium 2020-0 No 1mEq chloride ER 6-23 10 mEq 00:00: tablet,exte 00 nded release magnesium 2020-0 No 1x 1/3" oxide 400 6-23 mg (241.3 00:00: mg 00 magnesium) tablet magnesium 2020-0 No 1x 1/3" oxide 400 [...] Rexulti 1 2020-0 No 1mg mg tablet 5 00:00: 00 paroxetine 2020-0 No 1mg 40 mg 5-26 tablet 00:00: 00 Rexulti 1 2020-0 No 1mg mg tablet 5 00:00: 00 paroxetine 2020-0 No 1mg 40 [...] 125 mcg 1-12 tablet 00:00: 00 famotidine 2019-0 No 1mg 20 mg 1-12 tablet 00:00: 00 amlodipine 2020-0 No 1mg 10 mg 1-12 tablet 00:00: 00 hydrochloro 2019-0 No 1mg thiazide 1-12 12.5 mg 00:00: tablet 00 lisinopril 2020-0 No 1mg 10 mg 1-12 tablet 00:00: 00 citalopram 2018-1 No 1mg [...] 40 mg 1-11 tablet 00:00: 00 lisinopril 2018-1 No 1mg 10 mg 0-26 tablet 00:00: 00 hydrochloro 2018- No 1mg thiazide 0-26 12.5 mg 00:00: tablet 00 amlodipine 2018- No 1mg 10 mg 0-26 tablet 00:00: [...] 20 mg 0-26 tablet 00:00: 00 paroxetine 2019-1 No 1mg 40 mg 0-26 tablet 00:00: 00 citalopram 2019-1 No 1mg 10 mg 0-26 tablet 00:00: 00 bupropion 2019-1 No 1mg HCl 75 mg 0-26 tablet 00:00: 00 lamotrigine 2019- No 1mg 100 mg 0-26 tablet 00:00: 00 lamotrigine 2018- No 1mg 200 mg 0-26 tablet 00:00: 00 Keppra 500 2018- No 1mg mg tablet 0-26 00:00: 00 levothyroxi 2018- No 1mcg ne 137 mcg 0-26 tablet 00:00: 00 lisinopril 2018- No 1mg 10 mg 0-26 tablet 00:00: 00 hydrochloro 2018- No 1mg thiazide 0-26 12.5 mg 00:00: tablet 00 amlodipine 2018- No 1mg 10 mg 0-26 tablet 00:00: 00 famotidine 2018- No 1mg 20 mg 0-26 tablet 00:00: 00 paroxetine 2018- No 1mg 40 mg 0-26 tablet 00:00: 00 citalopram 2018- No 1mg 10 mg 0-26 tablet 00:00: 00 bupropion 2018- No 1mg HCl 75 mg 0-26 tablet 00:00: 00 lamotrigine 2018- No 1mg 100 mg 0-26 tablet 00:00: 00 lamotrigine 2018- No 1mg 200 mg 0-26 tablet 00:00: 00 Keppra 500 2018- No 1mg mg tablet 0-26 00:00: 00 levothyroxi 2018-1 No 1mcg ne 137 mcg 0-26 tablet 00:00: 00 citalopram 2018-1 No 1mg 10 mg 0-23 tablet 00:00: 00 paroxetine 2018-1 No 1mg 40 mg 0-23 tablet 00:00: 00 famotidine 2018- No 1mg 20 mg 0-23 tablet 00:00: 00 amlodipine 2018- No 1mg 10 mg 0-23 tablet 00:00: 00 lisinopril 2018- No 1mg 10 mg 0-23 tablet 00:00: 00 hydrochloro 2018-1 No 1mg thiazide 0-23 12.5 mg 00:00: tablet 00 lamotrigine 2019-1 No 1mg 200 mg 0-23 tablet 00:00: 00 lamotrigine 2019-1 No 1mg 100 mg 0-23 tablet 00:00: 00 bupropion 2019-1 No 1mg HCl 75 mg 0-23 tablet 00:00: 00 levothyroxi 2018- No 1mcg ne 137 mcg 0-23 tablet 00:00: 00 citalopram 2018- No 1mg 10 mg 0-23 tablet 00:00: 00 paroxetine 2018- No 1mg 40 mg 0-23 tablet 00:00: 00 famotidine 2018- No 1mg 20 mg 0-23 tablet 00:00: 00 amlodipine 2018- No 1mg 10 mg 0-23 tablet 00:00: 00 lisinopril 2018-1 No 1mg 10 mg 0-23 tablet 00:00: 00 hydrochloro 2018-1 No 1mg thiazide 0-23 12.5 mg 00:00: tablet 00 lamotrigine 2018- No 1mg 200 mg 0-23 tablet 00:00: 00 lamotrigine 2018- No 1mg 100 mg 0-23 tablet 00:00: 00 bupropion 2018-1 No 1mg HCl 75 mg 0-23 tablet 00:00: 00 levothyroxi 2018- No 1mcg ne 137 mcg 0-23 tablet 00:00: 00 citalopram 2018-1 No 1mg 10 mg 0-23 tablet 00:00: 00 paroxetine 2018-1 No 1mg 40 mg 0-23 tablet 00:00: 00 famotidine 2018-1 No 1mg 20 mg 0-23 tablet 00:00: 00 amlodipine 2018-1 No 1mg 10 mg 0-23 tablet 00:00: 00 lisinopril 2018-1 No 1mg 10 mg 0-23 tablet 00:00: 00 hydrochloro 2018-1 No 1mg thiazide 0-23 12.5 mg 00:00: tablet 00 lamotrigine 2018-1 No 1mg 200 mg 0-23 tablet 00:00: 00 lamotrigine 2018-1 No 1mg 100 mg 0-23 tablet 00:00: 00 bupropion 2018-1 No 1mg HCl 75 mg 0-23 tablet 00:00: 00 levothyroxi 2018- No 1mcg ne 137 mcg 0-23 tablet 00:00: 00 citalopram 2018-03 Yes 10 mg = 1 Me moria 10 mg oral 0-18 tab, PO, l tablet 20:41: Daily, # [place] 00 30 tab, 0 Refill(s) citalopram 2018- Yes 10 mg = 1 Me moria 10 mg oral 0-18 tab, PO, l tablet 20:41: Daily, # [place] 00 30 tab, 0 Refill(s) primidone 2018-03 Yes 50 mg = 1 Mem oria 50 mg oral 0-18 tab, PO, l tablet 20:06: Bedtime, # [place] nn 00 30 tab, 4 Refill(s), Pharmacy: [facility] [address] [place] [address], [place] primidone 2018-03 Yes 50 mg = 1 Mem oria 50 mg oral 0-18 tab, PO, l tablet 20:06: Bedtime, # Ev[place] nn 00 30 tab, 4 Refill(s), Pharmacy: [facility] [address] [place] [address], [place] paroxetine 2019-0 No 1mg 40 mg 9-24 [...] No 1mg mg tablet 11-05 00:00: 00 Paxil 30 mg 2019-0 No [...] tablet amlodipine 2019-0 No 1mg 10 mg 7- tablet 00:00: 00 Synthroid 2019-0 No 1mcg 150 mcg 09-17 tablet 00:00: 00 lisinopril 2019-0 No 1mg 20 7-09 mg-hydrochl 00:00: orothiazide 00 12.5 mg tablet amlodipine 2019-0 No 1mg 10 mg 09-17 tablet 00:00: 00 Synthroid 2019-0 No 1mcg [...] 50 mg 6-18 capsule 00:00: 00 PARoxetine 2019-0 Yes 40 mg = 1 Me moria 40 mg oral 5-17 tab, PO, l tablet 17:11: Daily, # [place] 00 30 tab, 0 Refill(s) Famotidine 2018-0 Yes 20 mg = 1 Me moria 20 MG Oral 5-17 tab, PO, l Tablet 17:11: Daily, 0 [place] 00 Refill(s) 24 HR 2019- Yes 100 mg = 1 Memori a lamotrigine 5-17 tab, PO, l 100 MG 17:11: Daily, # [place] Extended 00 30 tab, 0 Release Refill(s) Enteric Coated Tablet [Lamictal] PARoxetine Yes 40 mg = 1 Me moria 40 mg oral 5-17 tab, PO, l tablet 17:11: Daily, # [place] 00 30 tab, 0 Refill(s) Famotidine Yes 20 mg = 1 Me moria 20 MG Oral 5-17 tab, PO, l Tablet 17:11: Daily, 0 [place] 00 Refill(s) 24 HR Yes 100 mg = 1 Memori a lamotrigine 5-17 tab, PO, l 100 MG 17:11: Daily, # [place] Extended 00 30 tab, 0 Release Refill(s) Enteric Coated Tablet [Lamictal] amLODIPine Yes 5 mg = 1 Mem oria 5 mg oral 5-17 tab, PO, l tablet 16:28: Daily, # [place] 00 90 tab, 0 Refill(s) Levetiracet Yes See Memori a am 500 MG 5-17 Instructio l Oral Tablet 16:28: ns, 1 tab H ermann 00 PO QAM, 2 tabs PO QPM, 0 Refill(s) levothyroxi Yes 150 Memori a ne 150 mcg 5-17 microgram l (0.15 mg) 16:28: = 1 tab, Herm clarice oral tablet 00 PO, Daily, # 30 tab, 0 Refill(s) 24 HR Yes 150 mg = 1 Memori a Bupropion 5-17 tab, PO, l Hydrochlori 16:28: Q24H, # 30 [place] de 150 MG 00 tab, 0 Extended [...] # 30 tab, 0 Refill(s) 24 HR 2019 Yes 150 mg = 1 Memori a Bupropion 5-17 tab, PO, l Hydrochlori 16:28: Q24H, # 30 [place] de 150 MG 00 tab, 0 Extended Refill(s) Release Tablet lamotrigine 2018- Yes 200 mg = 1 Memoria 200 MG Oral 5-17 tab, PO, l Tablet 16:28: BID, # 180 [place] nn 00 tab, 0 Refill(s) famotidine 2018-0 No 1mg 20 mg 4-16 tablet 00:00: 00 Wellbutrin 2018-0 No 1mg XL 150 mg 4-16 24 hr 00:00: tablet, 00 extended release Paxil 40 mg 2019-0 No 1mg tablet 416 00:00: 00 Paxil 10 mg 2019-0 No 1mg tablet 16 00:00: 00 hydroxyzine 2019-0 No 1mg HCl 25 mg 4-16 tablet 00:00: 00 famotidine 2019-0 No 1mg 20 mg 4-16 tablet 00:00: 00 Wellbutrin 2018-0 No 1mg XL 150 mg 4-16 24 hr 00:00: tablet, 00 extended release Paxil 40 mg 2019-0 No 1mg tablet 16 00:00: 00 Paxil 10 mg 2019-0 No 1mg tablet 16 00:00: 00 hydroxyzine 2019-0 No 1mg HCl 25 mg 4-16 tablet 00:00: 00 famotidine 2019-0 No 1mg 20 mg 4-16 tablet 00:00: 00 Wellbutrin 2019-0 No 1mg XL 150 mg 4-16 24 hr 00:00: tablet, 00 extended release Paxil 40 mg 2019-0 No 1mg tablet 16 00:00: 00 Paxil 10 mg 2019-0 No 1mg tablet 4-16 00:00: 00 hydroxyzine 2019-0 No 1mg HCl 25 mg 4-16 tablet 00:00: 00 Wellbutrin 2017- No 1mg XL 150 mg 2-27 24 hr 00:00: tablet, 00 extended release lisinopril 2017-03 No 1mg 20 2-27 mg-hydrochl 00:00: orothiazide 00 12.5 mg tablet Paxil 40 mg 2017-03 No 1mg tablet 2-27 00:00: 00 Wellbutrin 2017-03 No 1mg XL 150 mg 2-27 24 hr 00:00: tablet, 00 extended release lisinopril 2017-03 No 1mg 20 2-27 mg-hydrochl 00:00: orothiazide 00 12.5 mg tablet Paxil 40 mg 2017-03 No 1mg tablet 2- 00:00: 00 amlodipine 2017-03 No 1mg 5 mg tablet 2- 00:00: 00 Pepcid 20 2017-03 No 1mg mg tablet 2- 00:00: 00 Pepcid 20 2017-03 No 1mg mg tablet 2- 00:00: 00 amoxicillin 2017-03 No 1mg 875 mg 2-27 tablet 00:00: 00 Synthroid 2017- No 1mcg 150 mcg 2-27 tablet 00:00: 00 Synthroid 2017- No 1mcg 150 mcg 2-27 tablet 00:00: 00 Wellbutrin 2017-03 No 1mg XL 150 mg 2-27 24 hr 00:00: tablet, 00 extended release lisinopril 2017-03 No 1mg 20 2-27 mg-hydrochl 00:00: orothiazide 00 12.5 mg tablet Paxil 40 mg 2017-03 No 1mg tablet 2-27 00:00: 00 Wellbutrin 2017-03 No 1mg XL 150 mg 2-27 24 hr 00:00: tablet, 00 extended release lisinopril 2017-03 No 1mg 20 2-27 mg-hydrochl 00:00: orothiazide 00 12.5 mg tablet Paxil 40 mg 2017-03 No 1mg tablet 2-27 00:00: 00 amlodipine 2017-03 No 1mg 5 mg tablet 2- 00:00: 00 Pepcid 20 2017-03 No 1mg mg tablet 2- 00:00: 00 Pepcid 20 2017-03 No 1mg mg tablet 2-27 00:00: 00 amoxicillin 2018-1 No 1mg 875 mg 2-27 tablet 00:00: 00 Synthroid 2018-1 No 1mcg 150 mcg 2-27 tablet 00:00: 00 Synthroid 2018-1 No 1mcg 150 mcg 2-27 tablet 00:00: 00 Wellbutrin 2018-1 No 1mg XL 150 mg 2-27 24 hr 00:00: tablet, 00 extended release lisinopril 2018-1 No 1mg 20 2-27 mg-hydrochl 00:00: orothiazide 00 12.5 mg tablet Paxil 40 mg 2017-1 No 1mg tablet 2-27 00:00: 00 Wellbutrin 2017-1 No 1mg XL 150 mg 2-27 24 hr 00:00: tablet, 00 extended release lisinopril 2017-1 No 1mg 20 2-27 mg-hydrochl 00:00: orothiazide 00 12.5 mg tablet Paxil 40 mg 2017- No 1mg tablet 2- 00:00: 00 amlodipine 2017-1 No 1mg 5 mg tablet 2- 00:00: 00 Pepcid 20 2017-1 No 1mg mg tablet 2- 00:00: 00 Pepcid 20 2017-1 No 1mg mg tablet 2-27 00:00: 00 amoxicillin 2018-1 No 1mg 875 mg 2-27 tablet 00:00: 00 Synthroid 2018-1 No [...] Paxil 40 mg 2018-0 No 1mg tablet 08-09 00:00: 00 lisinopril 2018-0 No 1mg 20 5-31 mg-hydrochl 00:00: orothiazide 00 12.5 mg tablet Pepcid 20 2018-0 No 1mg mg tablet 08-09 00:00: 00 Synthroid 2018-0 No 1mcg 150 mcg -31 tablet 00:00: 00 Wellbutrin 2018-0 No 1mg XL 150 mg 31 24 hr 00:00: tablet, 00 extended release lisinopril 2018-0 No 15mg 20 5-31 mg-hydrochl 00:00: orothiazide 00 12.5 mg tablet Paxil 40 mg 2018-0 No 1mg tablet 08-09 00:00: 00 lisinopril 2018-0 No 1mg 20 5-31 mg-hydrochl 00:00: orothiazide 00 12.5 mg tablet Pepcid 20 2017-0 No 1mg mg tablet 08-09 00:00: 00 Synthroid 2018-0 No 1mcg 150 [...] 2018-0 No 1mg tablet 4-20 00:00: 00 Paxil 40 mg 2018-0 No [...] 1mcg 150 mcg 4-20 tablet 00:00: 00 Pepcid 20 2018-0 No 1mg [...] Immunizations Ordered Filled Immunization Date Status Comments [facility] e Immunization Name Name SARS-COV-2 COVID-19 2021-03-11 Completed Unive rsity of MODERNA VACCINE 00:00:00 [facility] Moderna COVID-19 2020-05-22 Completed Vaccine 00:00:00 Moderna COVID-19 2020-05-22 Completed Vaccine 00:00:00 Moderna COVID-19 2020-05-22 Completed Vaccine 00:00:00 SARS-COV-2 COVID-19 2020-05-17 Completed Unive rsity of MODERNA VACCINE 00:00:00 [facility] SARS-COV-2 COVID-19 2020-05-17 Completed Unive rsity of MODERNA VACCINE 00:00:00 [facility] SARS-COV-2 COVID-19 2020-05-17 Completed Unive rsity of MODERNA VACCINE 00:00:00 [facility] Branch SARS-COV-2 COVID-19 2020-04-23 Completed Unive rsity of MODERNA VACCINE 00:00:00 [facility] Branch SARS-COV-2 COVID-19 2020-04-23 Completed Unive rsity of MODERNA VACCINE 00:00:00 [facility] SARS-COV-2 COVID-19 2020-04-23 Completed Unive rsity of MODERNA VACCINE 00:00:00 [facility] Moderna COVID-19 2020-04-16 Completed Vaccine 00:00:00 Moderna COVID-19 2020-04-16 Completed Vaccine 00:00:00 Moderna COVID-19 2020-04-16 Completed Vaccine 00:00:00 pneumococcal 2019-10-15 Completed polysacchar 00:00:00 pneumococcal 2019-10-15 Completed polysacchar 00:00:00 pneumococcal 2019-10-15 Completed polysacchar 00:00:00 Influenza, 2019-01-01 Completed seasonal, inj 00:00:00 Influenza, 2019-01-01 Completed seasonal, inj 00:00:00 Influenza, 2019-01-01 Completed seasonal, inj 00:00:00 Vital Signs Vital Name Observation Time Observation Value Comments Source Systolic blood 2020-05-11 17:27:00 108 mm[Hg] Univer sity of pressure [facility] Diastolic blood 2020-05-11 17:27:00 77 mm[Hg] [facility] Heart [facility] 2020-05-11 17:27:00 80 /min [facility] Body temperature 2019-09-19 18:09:00 [facility] weight 2019-09-19 18:09:00 86.183 kg [facility] BP Systolic 2021-11-29 09:10:00 BP Diastolic 2021-11-29 09:10:00 Weight Measured 2021-11-29 09:10:00 175.00 pounds Height Measured 2021-11-29 09:10:00 63.00 inches Body Temperature 2021-11-29 09:10:00 Heart Rate 2021-11-29 09:10:00 Respiratory Rate 2021-11-29 09:10:00 Systolic (mm Hg) 2021-11-24 16:23:00 Jose Daniel k[facility] [place] Diastolic (mm Hg) 2021-11-24 16:23:[facility] [place] [facility] 2021-11-24 16:23:00 [facility] Respitory Rate 2021-11-24 16:23:00 Swati al [place] Height 2021-11-24 16:23:00 154.94 cm [facility] Weight 2021-11-24 16:23:00 [facility] BMI Calculated 2021-11-24 16:23:00 Memolivia al [place] BP Systolic 2021-08-17 15:13:00 BP Diastolic 2021-08-17 [...] (mm Hg) 2021-01-27 15:19:00 Jose Daniel rial [place] Diastolic (mm Hg) 2021-01-27 15:19:00 Mem orial [place] Heart Rate 2021-01-27 15:19:00 [facility] [place] Respitory Rate 2021-01-27 15:19:00 Memori al [place] Height 2021-01-27 15:19:00 157.48 cm [facility] [place] Weight 2021-01-27 15:19:00 [facility] [place] BMI Calculated 2021-01-27 15:19:00 Memori al [place] Systolic (mm Hg) 2020-12-16 15:25:00 Jose Daniel rial [place] Diastolic (mm Hg) 2020-12-16 15:25:00 Mem orial [place] Heart Rate 2020-12-16 15:25:00 [facility] [place] Respitory Rate 2020-12-16 15:25:00 Memori al [place] Height 2020-12-16 15:25:00 160.02 cm [facility] [place] Weight 2020-12-16 15:25:00 [facility] [place] BMI Calculated 2020-12-16 15:25:00 Memori al [place] BP Systolic 2020-10-26 13:29:00 136 mm[Hg] BP [...] (mm Hg) 2018-12-27 19:37:00 Jose Daniel yamini [place] Diastolic (mm Hg) 2018-12-27 19:37:00 Mem orial [place] Heart Rate 2018-12-27 19:37:00 [facility] [place] Respitory Rate 2018-12-27 19:37:00 Memori al [place] Height 2018-12-27 19:37:00 160.02 cm [facility] [place] Weight 2018-12-27 19:37:00 [facility] [place] BMI Calculated 2018-12-27 19:37:00 Memori al [place] Weight 2018-07-26 16:21:00 [facility] [place] Height 2018-07-26 16:21:00 157.48 cm [facility] [place] BMI Calculated 2018-07-26 16:21:00 Memori al [place] Heart Rate 2018-07-26 16:21:00 [facility] [place] Respitory Rate 2018-07-26 16:21:00 Funmilayoolivia iniguez [place] Systolic (mm Hg) 2018-07-26 16:21:00 Jose Danielkandy kc [place] Diastolic (mm Hg) 2018-07-26 16:21:00 Mem rosalia Newman Procedures Procedure Date / Time Performing Clinician Source Performed REFERRAL- 2020-09-06 05:01:00 Doctor Unassigned, No [facility] REQUEST/RESPONSE Name [facility] EXTERNAL PROVIDER - ADC 2020-05-10 06:01:00 Doctor Unassigned, N o [facility] REFERRAL Name [facility] PATIENT QUESTIONNAIRE 2019-09-28 05:01:00 Doctor Unassigned, No [facility] XR SHOULDER 2+ VW LEFT 2019-09-19 18:04:00 Jing Szymanski [facility] Aneurysm clipping Christine Quevedoa nn Plan of Care Planned Activity Planned Date Details Comments Source Goal Plan of Care Note [code = 04692-9] Goal Plan of Care Note [code = 90057-9] Goal Plan of Care Note [code = 06166-0] Goal Plan of Care Note [code = 39685-3] Goal Plan of Care Note [code = 03254-9] Goal Plan of Care Note [code = 71972-3] Goal Plan of Care Note [code = 66704-5] Goal Plan of Care Note [code = 01804-2] Goal Plan of Care Note [code = 40207-7] Goal Plan of Care Note [code = 72884-1] Goal Plan of Care Note [code = 30121-3] Goal Plan of Care Note [code = 33791-4] Goal Plan of Care Note [code = 53804-4] Goal Plan of Care Note [code = 99560-0] Goal Plan of Care Note [code = 89737-7] Goal Plan of Care Note [code = 63963-0] Goal Plan of Care Note [code = 74832-3] Goal Plan of Care Note [code = 10181-9] Goal Plan of Care Note [code = 71988-9] Goal Plan of Care Note [code = 52029-0] Goal Plan of Care Note [code = 95759-9] Goal Plan of Care Note [code = 14313-0] Goal Plan of Care Note [code = 03115-5] Goal Plan of Care Note [code = 69193-3] Goal Plan of Care Note [code = 90257-1] Goal Plan of Care Note [code = 85460-2] Goal Plan of Care Note [code = 74084-1] Goal Plan of Care Note [code = 85068-0] Goal Plan of Care Note [code = 88818-2] Goal Plan of Care Note [code = 37913-3] Goal Plan of Care Note [code = 84790-7] Goal Plan of Care Note [code = 39676-9] Goal Plan of Care Note [code = 32774-9] Goal Plan of Care Note [code = 13264-8] Goal Plan of Care Note [code = 79428-9] Goal Plan of Care Note [code = 48072-5] Goal Plan of Care Note [code = 66859-3] Goal Plan of Care Note [code = 26326-0] Goal Plan of Care Note [code = 74910-5] Goal Plan of Care Note [code = 82726-5] Goal Plan of Care Note [code = 64064-5] Goal Plan of Care Note [code = 67769-5] Goal Plan of Care Note [code = 92098-6] Goal Plan of Care Note [code = 86174-5] Goal Plan of Care Note [code = 63478-6] Goal Plan of Care Note [code = 30833-7] Goal Plan of Care Note [code = 89759-8] Goal Plan of Care Note [code = 23656-8] Goal Plan of Care Note [code = 54074-8] Goal Plan of Care Note [code = 71585-9] Goal Plan of Care Note [code = 14972-2] Goal Plan of Care Note [code = 60991-7] Goal Plan of Care Note [code = 16666-6] Goal Plan of Care Note [code = 45214-1] Goal Plan of Care Note [code = 73984-0] Goal Plan of Care Note [code = 22122-4] Goal Plan of Care Note [code = 41955-3] Goal Plan of Care Note [code = 68971-8] Goal Plan of Care Note [code = 30919-0] Goal Plan of Care Note [code = 18790-6] Goal Plan of Care Note [code = 73291-1] Goal Plan of Care Note [code = 73434-2] Goal Plan of Care Note [code = 90768-3] Goal Plan of Care Note [code = 75104-3] Goal Plan of Care Note [code = 12893-0] Goal Plan of Care Note [code = 44962-0] Goal Plan of Care Note [code = 43215-8] Goal Plan of Care Note [code = 48504-0] Goal Plan of Care Note [code = 58272-4] Goal Plan of Care Note [code = 65184-8] Goal Plan of Care Note [code = 23534-1] Goal Plan of Care Note [code = 26804-0] Goal Plan of Care Note [code = 22427-6] Goal Plan of Care Note [code = 34499-5] Goal Plan of Care Note [code = 49601-2] Goal Plan of Care Note [code = 65984-6] Goal Plan of Care Note [code = 97971-9] Goal Plan of Care Note [code = 10833-8] Goal Plan of Care Note [code = 29684-7] Goal Plan of Care Note [code = 59480-1] Goal Plan of Care Note [code = 35463-6] Goal Plan of Care Note [code = 89342-5] Goal Plan of Care Note [code = 92780-6] Goal Plan of Care Note [code = 64169-1] Goal Plan of Care Note [code = 84702-6] Goal Plan of Care Note [code = 37672-4] Goal Plan of Care Note [code = 22922-5] Goal Plan of Care Note [code = 22328-5] Goal Plan of Care Note [code = 41335-3] Goal Plan of Care Note [code = 01156-8] Goal Plan of Care Note [code = 45251-0] Goal Plan of Care Note [code = 59470-8] Goal Plan of Care Note [code = 27035-8] Goal Plan of Care Note [code = 37612-6] Goal Plan of Care Note [code = 55900-7] Goal Plan of Care Note [code = 87466-4] Goal Plan of Care Note [code = 99703-7] Goal Plan of Care Note [code = 30528-3] Goal Plan of Care Note [code = 81976-0] Goal Plan of Care Note [code = 22701-1] Goal Plan of Care Note [code = 42849-1] Goal Plan of Care Note [code = 07411-8] Goal Plan of Care Note [code = 22797-2] Goal Plan of Care Note [code = 31827-8] Goal Plan of Care Note [code = 21989-4] Goal Plan of Care Note [code = 30849-4] Goal Plan of Care Note [code = 94872-4] Goal Plan of Care Note [code = 37657-5] Goal Plan of Care Note [code = 37994-3] Goal Plan of Care Note [code = 04275-2] Goal Plan of Care Note [code = 55494-9] Goal Plan of Care Note [code = 07568-5] Goal Plan of Care Note [code = 12132-8] Goal Plan of Care Note [code = 83432-6] Goal Plan of Care Note [code = 31835-2] Goal Plan of Care Note [code = 72526-0] Goal Plan of Care Note [code = 40256-3] Goal Plan of Care Note [code = 93049-9] Goal Plan of Care Note [code = 78084-1] Goal Plan of Care Note [code = 08661-7] Goal Plan of Care Note [code = 42865-0] Goal Plan of Care Note [code = 21458-4] Goal Plan of Care Note [code = 56112-0] Goal Plan of Care Note [code = 86078-0] Goal Plan of Care Note [code = 67735-4] Goal Plan of Care Note [code = 00077-0] Goal Plan of Care Note [code = 81288-5] Goal Plan of Care Note [code = 67522-5] Goal Plan of Care Note [code = 67523-5] Goal Plan of Care Note [code = 00699-3] Goal Plan of Care Note [code = 27817-1] Goal Plan of Care Note [code = 15781-1] Goal Plan of Care Note [code = 45646-4] Goal Plan of Care Note [code = 53465-6] Goal Plan of Care Note [code = 49524-5] Goal Plan of Care Note [code = 24835-6] Goal Plan of Care Note [code = 68701-0] Encounters Start End Encounter Admission Attending Care Care Encounter Source Date/Time Date/Time Type Type Clinicians Facility Department ID 2022-01-11 2022-01-11 Outpatient KALINA ARTI [id number] [facility] 13:15:00 13:15:00 13 jeison Newman 2021-11-29 2021-11-29 Outpatient [id number] 00:00:00 00:00:00 Visit 4h4e-4842 h6u-5152-4 -8240-dd2 240-dd2b7c [id number] 2021-11-24 2021-11-25 Outpatient nullFlavo MNA [id number] Memoria 16:00:00 04:59:59 r Neurology 12 jeison Quevedoann 2021-11-24 2021-11-[address] [facility] [id number] 11:00:00 23:59:59 Markos 12 [place] 2021-11-24 2021-11-24 Outpatient KALINA GILMAN [id number] Memoria 11:00:00 11:00:00 12 jeison Newman 2021-11-18 2021-11-18 Outpatient [id number] 00:00:00 00:00:00 Visit bddf-439d ddf-439d-9 -93af-5e7 3af-4g023a 50e5x0zp5 5b9ea2 2021-10-11 2021-10-11 Outpatient [id number] 00:00:00 00:00:00 Visit 1u77-9870 q37-3410-4 -8617-b46 617-b468fa 8jd60x8im 38d1ce 2021-09-28 2021-09-28 Ambulatory nullFlavo MNA [id number] Memoria 18:30:00 18:30:00 Pre-Reg r Neurology 11 jeison Newman 2021-09-28 2021-09-28 Ambulatory nullFlavo MNA [id number] Memoria 18:30:00 18:30:00 Pre-Reg r Neurology 11 jeison Newman 2021-09-28 2021-09-28 Outpatient ARTI ARTI [id number] Memoria 13:30:00 13:30:00 11 jeison Newman 2021-09-28 2021-09-28 Outpatient RICCI MackaySCHER MHMISCHER [id number] 13:30:00 13:30:00 Markos 11 [facility] 2021-07-28 2021-07-28 YINKA Katz 1.2.840.114 [id number] Univers 00:00:00 00:00:00 [facility] [phone] [address] 2021-06-29 2021-06-30 Outpatient nullFlavo MNA [id number] Memoria 20:15:00 04:59:59 r Neurology 10 l Talmage Trent 2021-06-29 2021-06-30 Outpatient nullFlavo MNA [id number] Memoria 20:15:00 04:59:59 r Neurology 10 l Lyndsey Newman 2021-06-29 2021-06-29 Outpatient RICCI MackaySCHER MHMISCHER [id number] 15:15:00 23:59:59 Markos 10 [place] 2021-06-29 2021-06-29 Outpatient MHIE MHIE [id number] Memoria 15:15:00 15:15:00 10 jeison Trent 2021-05-24 2021-05-24 Outpatient R LILIA, [facility] [id number]-20 Univers 14:40:00 14:40:00 DELORES [id number] [facility] 2021-04-28 2021-04-29 Outpatient nullFlavo MNA [id number] Memoria 16:00:00 05:59:59 r Neurology 08 l Talmage Trent 2021-04-28 2021-04-29 Outpatient nullFlavo MNA [id number] Memoria 16:00:00 05:59:59 r Neurology 08 l Lyndsey Newman 2021-04-28 2021-04-28 Outpatient RICCI MackaySCHER MHMISCHER [id number] 10:00:00 23:59:59 Markos 08 [place] 2021-04-28 2021-04-28 Outpatient MHIE MHIE [id number] Memoria 10:00:00 10:00:00 08 jeison Newman 2021-03-16 2021-03-16 Ambulatory nullFlavo MNA [id number] Memoria 17:45:00 17:45:00 Pre-Reg r Neurology 09 l Lyndsey Newman 2021-03-16 2021-03-16 Ambulatory nullFlavo MNA [id number] Memoria 17:45:00 17:45:00 Pre-Reg r Neurology 09 l Lyndsey Quevedoann 2021-03-16 2021-03-16 Outpatient MHIE IE [id number] Memoria 11:45:00 11:45:00 09 jeison Trent 2021-03-16 2021-03-16 Outpatient RICCI MackaySCHER MISCHER [id number] 11:45:00 11:45:00 Markos 09 [place] 2021-02-08 2021-02-08 [facility] [id number] P-20 Univers 14:00:00 14:00:00 DELORES [id number] [facility] 2021-02-08 2021-02-08 [facility] [id number] Univers 14:00:00 [facility]00[facility] 2021-01-28 Outpatient nullFlavo MNA [id number] Memoria 15:15:00 05:59:59 r Neurology 07 l [facility] 2021-01-27 2021-01-28 Outpatient nullFlavo MNA [id number] Memoria 15:15:00 05:59:59 r Neurology 07 l Talmage [place] 2021-01-27 2021-01-27 Outpatient RICCI MackaySCHER MISCHER [id number] 09:15:00 23:59:59 Markos 07 [place] 2021-01-27 2021-01-27 Outpatient MHIE IE [id number] Memoria 09:15:00 09:15:00 07 [facility] 2020-12-31 2021-01-01 Outpatient nullFlavo [facility] [id number] Memoria 12:15:00 04:59:00 r Trent 00 [facility] 2020-12-31 2021-01-01 Outpatient nullFlavo [facility] [id number] Memoria 12:15:00 04:59:00 r Trent 00 l [facility] 2020-12-31 2020-12-31 Outpatient Claire [facility] [id number] 07:15:00 23:59:00 Markos 00 [place] 2020-12-31 2020-12-31 Outpatient CLAIRE [facility] 7500 [facility] 07:15:00 23:59:00 MARKOS 2020-12-16 2020-12-17 Outpatient nullFlavo MNA [id number] Memoria 15:30:00 04:59:59 r Neurology 06 l [facility] 2020-12-16 2020-12-17 Outpatient nullFlavo MNA [id number] Memoria 15:30:00 04:59:59 r Neurology 06 l [facility] 2020-12-16 2020-12-16 Outpatient Claire MISCHER MISCHER [id number] 10:30:00 23:59:59 Markos 06 [place] 2020-12-16 2020-12-16 Outpatient MHIE IE [id number] Memoria 10:30:00 10:30:00 06 l [place] 2020-09-06 2020-09-06 Orders Doctor MARRY 1.2.840.114 [id number] Univers 00:00:00 00:00:00 Only Unassigned, CHRISTEN 350.1.13.10 ity of [place] [facility] 4.2.7.2.686 [place] as [id number] [facility] [address] 2020-07-29 2020-07-29 Telephone Mirella Gurrola 1.2.840.114 [id number] Univers 00:00:00 00:00:00 , Nika Stilly 350.1.13.10 [place] [id number] [facility] [address] 2020-06-11 2020-06-11 Outpatient Rene VILLA [facility] [id number] -[id number] Univers 14:00:00 14:00:00 SENDIL [id number] ity [facility] 2020-06-11 2020-06-11 Outpatient Rene VILLA [facility] [id number] Univers 14:00:00 14:00:00 SENDIL ity [facility] 2020-06-08 2020-06-08 Outpatient R DAISY [facility] [id number] Univers 08:00:00 08:00:00 SENDIL [id number] ity of [facility] 2020-06-08 2020-06-08 Outpatient R DAISY [facility] [id number] Univers 08:00:00 08:00:00 SENDIL ity [facility] 2020-05-20 2020-05-20 Outpatient R DAISY [facility] [id number] Univers 08:30:00 08:30:00 SENDIL ity [facility] 2020-05-11 2020-05-11 [facility] 1.2.840.114 [id number] Univers 10:30:24 11:56:39 Visit Sendil Mariam Glover 350.1.13.10 [place] [phone] Nd dical nal 059 [facility] 2020-05-11 2020-05-11 Outpatient R DAISY [facility] [id number] Univers 10:30:00 10:30:00 SENDIL [id number] ity [facility] 2020-05-11 2020-05-11 [facility] [id number] Univers 10:30:00 10:30:00 SENDIL ity [facility] 2020-05-10 2020-05-10 Orders Doctor TUTTLE 1.2.840.114 [id number] Univers 00:00:00 00:00:00 Only Unassigned, CHRISTEN 350.1.13.10 [facility] 4.2.7.2.686 [place] [phone] [address] 2019-12-17 2019-12-17 Outpatient [facility] [id number] Univers 08:20:00 08:20:00 [id number] ity [facility] 2019-12-17 2019-12-17 Outpatient Rene SOLORIO [facility] [id number] Univers 08:20:00 08:20:00 ALLEN ity [facility] 2019-12-10 2019-12-10 Outpatient [facility] [id number] Univers 08:20:00 08:20:00 ity of [facility] 2019-12-03 2019-12-03 Ancillary Ольга Daniels [facility] 1. 2.840.114 [id number] Univers 08:19:20 08:59:20 Visit Allen Solorio PRIMARY 350.1.13.10 [place] [id number] Nd dical [address] 2019-12-03 2019-12-03 Outpatient [facility] [id number] Univers 08:20:00 08:20:00 [id number] ity of [facility] 2019-11-26 2019-11-26 Outpatient [facility] [id number] Univers 08:20:00 08:20:00 [id number] ity of [facility] 2019-11-26 2019-11-26 Case [facility] 1.2.840.114 [id number] Univers 00:00:00 00:00:00 Management Ijeoma PRIMARY 350.1.13.10 [place] [id number] Nd dical [address] 2019-11-20 2019-11-20 Ancillary Ijeoma Retana [facility] 1.2.840.1 14 [id number] Univers 08:20:47 09:00:47 Visit Allen Solorio PRIMARY 350.1.13.10 [place] [id number] Me dical [address] 2019-11-20 2019-11-20 Outpatient [facility] [id number] Univers 08:20:00 08:20:00 ity of [facility] 2019-11-20 2019-11-20 [facility] [id number] Univers 08:20:00 08:20:00 ALLEN ity of [facility] 2019-11-13 2019-11-13 Outpatient R [facility] [id number] Univers 08:20:00 08:20:00 ity of [facility] 2019-11-13 2019-11-13 [facility] 1.2.840.114 [id number] Univers 00:00:00 00:00:00 Management Ijeoma PRIMARY 350.1.13.10 [place] [id number] Nd dical [address] 2019-11-04 2019-11-04 Ancillary Ольга Daniels [facility] 1. 2.840.114 [id number] Univers 08:57:57 09:57:57 Visit Allen Solorio PRIMARY 350.1.13.10 [place] [id number] [facility] [address] 2019-11-04 2019-11-04 Outpatient R [facility] [id number] Univers 09:00:00 09:00:00 [id number] ity [facility] 2019-11-04 2019-11-04 Outpatient [facility] [id number] Univers 09:00:00 09:00:00 ALLEN ity [facility] 2019-10-22 2019-10-22 Outpatient R [facility] [id number] Univers 11:00:00 11:00:00 [id number] ity [facility] 2019-09-28 2019-09-28 Orders Doctor TUTTLE 1..840.114 [id number] Univers 00:00:00 00:00:00 Only Unassigned, CHRISTEN 350.1.13.10 ity of [place] [facility] 4.2.7.2.686 [place] [id number] [address] 2019-09-26 2019-09-26 Outpatient R OCTAVIANO, [facility] [id number] Univers 09:00:00 09:00:00 MIKEY [id number] ity [facility] 2019-09-26 2019-09-26 Letter Therapy-Wal [facility] 1.2.840.114 [id number] Univers 00:00:00 00:00:00 (Out) kin, PRIMARY 350.1.13.10 it y of Pcp-Phys CARE 4.2.7.2.686 [place] PAVILLION [id number] Nd dicpr [address] 2019-09-19 2019-09-19 [facility] 1.2.840.114 [id number] Univers 12:54:00 23:59:00 Encounter Jing PRIMARY 350.1.13.10 [place] [phone] Nd maco [address] 2019-09-19 2019-09-19 Office [facility] 1.2.385.423 [id number] Univers 12:41:50 13:01:50 Visit Jing PRIMARY 350.1.13.10 it [place] [phone] Nd dicpr [address] 2019-09-19 2019-09-19 Outpatient [address] [facility] [id number] Univers 13:00:00 13:00:00 JING ity of [facility] 2019-06-04 2019-06-04 Ambulatory nullFlavo MNA [id number] Memoria 18:30:00 18:30:00 Pre-Reg r Neurology 05 l Talmage [place] 2019-06-04 2019-06-04 Ambulatory nullFlavo MNA [id number] Memoria 18:30:00 18:30:00 Pre-Reg r Neurology 05 l Lyndsey [place] 2019-06-04 2019-06-04 Outpatient MHIE MHIE [id number] Memoria 13:30:00 13:30:00 05 l [place] 2019-06-04 2019-06-04 Outpatient RICCI MackaySCHDEAN PIETERSCHDEAN [id number] 13:30:00 13:30:00 Markosmelvin [place] 2019-03-28 2019-03-28 Ambulatory nullFlavo MNA [id number] Memoria 20:00:00 20:00:00 Pre-Reg r Neurology 04 l Lyndsey [place] 2019-03-28 2019-03-28 Ambulatory nullFlavo MNA [id number] Memoria 20:00:00 20:00:00 Pre-Reg r Neurology 04 l Lyndsey [place] 2019-03-28 2019-03-28 Outpatient MHIE MHIE [id number] Memoria 14:00:00 14:00:00 04 jeison [place] 2019-03-28 2019-03-28 Outpatient RICCI MackaySCHER MHMISCHER [id number] 14:00:00 14:00:00 Markos 04 [place] 2018-12-27 2018-12-28 Outpatient nullFlavo MNA [id number] Memoria 19:45:00 04:59:59 r Neurology 03 jeison Quevedoann 2018-12-27 2018-12-28 Outpatient nullFlavo MNA [id number] Memoria 19:45:00 04:59:59 r Neurology 03 jeison Talmage [place] 2018-12-27 2018-12-27 Outpatient MARCO A MackayWVSCHER [facility] [id number] 14:45:00 23:59:59 Markos 03 [place] 2018-12-27 2018-12-27 Outpatient MHIE MHIE [id number] Memoria 14:45:00 14:45:00 03 jeison Newman 2018-11-15 2018-11-16 Outpatient nullFlavo MNA [id number] Memoria 20:00:00 04:59:59 r Neurology 02 jeison Talmage [place] 2018-11-15 2018-11-16 Outpatient nullFlavo MNA [id number] Memoria 20:00:00 04:59:59 r Neurology 02 jeison Talmage [place] 2018-11-15 2018-11-[address] [facility] [address] [id number] 15:00:00 23:59:59 Markos 02 [place] 2018-11-15 2018-11-15 Outpatient MHIE MHIE [id number] Memoria 15:00:00 15:00:00 02 jeison Trent 2018-11-07 2018-11-07 Outpatient MHIE MHIE [id number] Memoria 13:15:00 13:15:00 01 jeison [place] 2018-11-07 2018-11-07 Outpatient MHIE MHIE [id number] Memoria 13:15:00 13:15:00 01 jeison [place] 2018-07-26 2018-07-27 Outpatient nullFlavo MNA [id number] Memoria 16:30:00 04:59:59 r Neurology 00 jeison Talmagesony Quevedoann 2018-07-26 2018-07-27 Outpatient nullFlavo MNA [id number] Memoria 16:30:00 04:59:59 r Neurology 00 l Talmage Trent 2018-07-26 2018-07-26 Outpatient RICCI MackaySCHER MISCHER [id number] 11:30:00 23:59:59 Markos 00 [place] 2018-07-26 2018-07-26 [id number] [facility] 11:30:00 11:30:00 00 l Trent Results Test Description Test Time Test Comments Results Result Comments Source TSH, THIRD GENERATION 2021-08-23 06:59:46 Test Item Value Reference Range Interpretation Comme nts TSH, THIRD GENERATION (test code = 2821) 0.070 UIU/ML 0.400-4.100 L VITAMIN B 12 AND FOLIC [id number] 06:59:46 Test Item Value Reference Range Interpretation Comments VITAMIN B-12 (test 689 PG/ML 200-950 code = 2840) FOLIC ACID (test >20.0 UG/L SEE BELOW INTE RPRETIVE code = 2695) RANGES D EFICIENCY . . . . . . . . . . . . . . . UG/L <4.0 POSSIBLE DEFICIENCY. . . . . . . . . . . UG/L 4. 0-5.9 SUFFICIENT . . . . . . . . . . . . . . . UG/L >=6.0 UNLESS OT HERWISE INDICATED, ALL TESTING PERFORMED [facility] NIC[facility] PATHOLOGY LABOR [facility] [address] [place] [address] LABORATORY DIRE CTOR: SAGE SANTANA M.D. CLIA NUMBER [id number] [facility] [place] [id number] VITAMIN D, 25 [id number] 06:44:37 Test Item Value Reference Range Interpretation [...] . . . . NG/ML 30-100 HEMOGLOBIN [id number] 06:07:46 Test Item Value Reference Range Interpretation Comments HEMOGLOBIN A1c (test code = 58223) 5.4 % 4.2-5.6 VITAMIN D, 25 [id number] 00:00:00 Test Item Value Reference Range Interpretation Comments VITAMIN D, 25 OH (test code = 4958) 59 NG/ML VITAMIN B 12 AND FOLIC [id number] 00:00:00 Test Item Value Reference Range Interpretation Comments VITAMIN B-12 (test code = 2840) 689 PG/ML FOLIC ACID (test code = 2695) >20.0 UG/L VITAMIN B 12 AND FOLIC [id number] 00:00:00 Test Item Value Reference Range Interpretation Comments VITAMIN B-12 (test code = 2840) 689 PG/ML FOLIC ACID (test code = 2695) >20.0 UG/L HEMOGLOBIN [id number] 00:00:00 Test Item Value Reference Range Interpretation Comments HEMOGLOBIN A1c (test code = 31496) 5.4 % HEMOGLOBIN [id number] 00:00:00 Test Item Value Reference Range Interpretation Comments HEMOGLOBIN A1c (test code = 48296) 5.4 % HEMOGLOBIN [id number] 00:00:00 Test Item Value Reference Range Interpretation Comments HEMOGLOBIN A1c (test code = 66475) 5.4 % [id number] 00:00:00 Test Item Value Reference Range Interpretation Comments TSH, THIRD GENERATION (test code 0.070 UIU/ML = 2821) [id number] 00:00:00 Test Item Value Reference Range Interpretation Comments TSH, THIRD GENERATION (test code 0.070 UIU/ML = 2821) [id number] 00:00:00 Test Item Value Reference Range Interpretation Comments TSH, THIRD GENERATION (test code 0.070 UIU/ML = 2821) VITAMIN D, 25 [id number] 00:00:00 Test Item Value Reference Range Interpretation Comments VITAMIN D, 25 OH (test code = 4958) 59 NG/ML VITAMIN D, 25 [id number] 00:00:00 Test Item Value Reference Range Interpretation Comments VITAMIN D, 25 OH (test code = 4958) 59 NG/ML VITAMIN B 12 AND FOLIC [id number] 00:00:00 Test Item Value Reference Range Interpretation Comments VITAMIN B-12 (test code = 2840) 689 PG/ML FOLIC ACID (test code = 2695) >20.0 UG/L VITAMIN B 12 AND FOLIC [id number] 00:00:00 Test Item Value Reference Range Interpretation Comments VITAMIN B-12 (test code = 2840) 689 PG/ML FOLIC ACID (test code = 2695) >20.0 UG/L HEMOGLOBIN [id number] 00:00:00 Test Item Value Reference Range Interpretation Comments HEMOGLOBIN A1c (test code = 42762) 5.4 % HEMOGLOBIN [id number] 00:00:00 Test Item Value Reference Range Interpretation Comments HEMOGLOBIN A1c (test code = 62454) 5.4 % HEMOGLOBIN [id number] 00:00:00 Test Item Value Reference Range Interpretation Comments HEMOGLOBIN A1c (test code = 10610) 5.4 % [id number] 00:00:00 Test Item Value Reference Range Interpretation Comments TSH, THIRD GENERATION (test code 0.070 UIU/ML = 2821) [id number] 00:00:00 Test Item Value Reference Range Interpretation Comments TSH, THIRD GENERATION (test code 0.070 UIU/ML = 2821) [id number] 00:00:00 Test Item Value Reference Range Interpretation Comments TSH, THIRD GENERATION (test code 0.070 UIU/ML = 2821) VITAMIN D, 25 [id number] 00:00:00 Test Item Value Reference Range Interpretation Comments VITAMIN D, 25 OH (test code = 4958) 59 NG/ML VITAMIN D, 25 [id number] 00:00:00 Test Item Value Reference Range Interpretation Comments VITAMIN D, 25 OH (test code = 4958) 59 NG/ML VITAMIN B 12 AND FOLIC [id number] 00:00:00 Test Item Value Reference Range Interpretation Comments VITAMIN B-12 (test code = 2840) 689 PG/ML FOLIC ACID (test code = 2695) >20.0 UG/L VITAMIN B 12 AND FOLIC [id number] 00:00:00 Test Item Value Reference Range Interpretation Comments VITAMIN B-12 (test code = 2840) 689 PG/ML FOLIC ACID (test code = 2695) >20.0 UG/L HEMOGLOBIN [id number] 00:00:00 Test Item Value Reference Range Interpretation Comments HEMOGLOBIN A1c (test code = 95281) 5.4 % HEMOGLOBIN [id number] 00:00:00 Test Item Value Reference Range Interpretation Comments HEMOGLOBIN A1c (test code = 00525) 5.4 % HEMOGLOBIN [id number] 00:00:00 Test Item Value Reference Range Interpretation Comments HEMOGLOBIN A1c (test code = 84218) 5.4 % [id number] 00:00:00 Test Item Value Reference Range Interpretation Comments TSH, THIRD GENERATION (test code 0.070 UIU/ML = 2821) [id number] 00:00:00 Test Item Value Reference Range Interpretation Comments TSH, THIRD GENERATION (test code 0.070 UIU/ML = 2821) [id number] 00:00:00 Test Item Value Reference Range Interpretation Comments TSH, THIRD GENERATION (test code 0.070 UIU/ML = 2821) VITAMIN D, 25 [id number] 00:00:00 Test Item Value Reference Range Interpretation Comments VITAMIN D, 25 OH (test code = 4958) 59 NG/ML [id number] 09:01:48 Test Item Value Reference Interpretation Comments Range LEVETIRACETAM 28.1 12.0-46.0 This test was developed and (test code = mcg/mL its performance 13640) characteristics determined by [facility] ([facility]). It has n ot [...] vement Amendments (CLI A). TESTING PERFORMED AT [facility] [address], [address], [address] [place], [place] [address] CLIA NO: [id number] 09:01:48 Test Item Value Reference Interpretation Comments Range LAMOTRIGINE 11.8 2.5-15.0 This test was d constantine and (test code = mcg/mL its performance 57254) characteristics determined by [facility] ([facility]). It has n ot [...] AT [facility] [address], [place] [address], [address] [address] CLIA NO: [id number] UNL ESS OTHERWISE INDICATED, ALL TESTING PERFORMED [facility], [facility]. [address] [place], [place] [address] [employer] EMPLOYEE: Zoey VENEGASIA JOSE MARIA López [id number] [place] [id number] 00:00:00 Test Item Value Reference Range Interpretation Comments LEVETIRACETAM (test code = 44879) 28.1 mcg/mL [id number] 00:00:00 Test Item Value Reference Range Interpretation Comments LEVETIRACETAM (test code = 24318) 28.1 mcg/mL [id number] 00:00:00 Test Item Value Reference Range Interpretation Comments LAMOTRIGINE (test code = 02290) 11.8 mcg/mL [id number] 00:00:00 Test Item Value Reference Range Interpretation Comments LAMOTRIGINE (test code = 54817) 11.8 mcg/mL [id number] 00:00:00 Test Item Value Reference Range Interpretation Comments LEVETIRACETAM (test code = 92059) 28.1 mcg/mL [id number] 00:00:00 Test Item Value Reference Range Interpretation Comments LEVETIRACETAM (test code = 93188) 28.1 mcg/mL [id number] 00:00:00 Test Item Value Reference Range Interpretation Comments LAMOTRIGINE (test code = 93903) 11.8 mcg/mL [id number] 00:00:00 Test Item Value Reference Range Interpretation Comments LAMOTRIGINE (test code = 95099) 11.8 mcg/mL [id number] 00:00:00 Test Item Value Reference Range Interpretation Comments LEVETIRACETAM (test code = 47001) 28.1 mcg/mL [id number] 00:00:00 Test Item Value Reference Range Interpretation Comments LEVETIRACETAM (test code = 46883) 28.1 mcg/mL [id number] 00:00:00 Test Item Value Reference Range Interpretation Comments LAMOTRIGINE (test code = 33532) 11.8 mcg/mL [id number] 00:00:00 Test Item Value Reference Range Interpretation Comments LAMOTRIGINE (test code = 34833) 11.8 mcg/mL LIPID [id number] 05:03:13 Test Item Value Reference Range Interpretation [...] MOREINFORMATION , SEE CLIENT ANNOUNCE MENT AT [email or web address] RISK RATIO LDL/HDL 2.10 RATIO <3.22 (test code = 2238) COMPREHENSIVE METABOLIC [id number] 05:03:13 Test Item Value Reference Range Interpretation Comments GLUCOSE (test code = 90 MG/DL 70-99 2216) BUN (test code = 13 MG/DL 6-20 2207) CREATININE (test 1.18 MG/DL 0.60-1.30 code = 2214) eGFR (2020 CKD-EPI) 54 ML/MIN/1.73 >60 L (test code = 76801) CALC BUN/CREAT (test 11 RATIO 6-28 code = 223) SODIUM (test code = 141 MEQ/L 994-216 7083) POTASSIUM (test code 3.5 MEQ/L 3.5-5.4 = 2227) CHLORIDE (test code 99 MEQ/L 95-107 = 2214) CARBON DIOXIDE (test 27 MEQ/L 19-31 code = 2205) CALCIUM (test code = 10.2 MG/DL 8.5-10.5 2208) PROTEIN, TOTAL (test 7.2 G/DL 6.1-8.3 code = 2228) ALBUMIN (test code = 5.0 G/DL 3.5-5.2 2200) CALC GLOBULIN (test 2.2 G/DL 1.9-3.7 code = 2239) CALC A/G RATIO (test 2.3 RATIO 1.0-2.6 code = 2233) BILIRUBIN, TOTAL 0.5 MG/DL See_Comment [Automated message] (test code = 2206) The syste [employer] which generated this result transmit sonia reference range : <=1.2. The refe rence range was not u sed to interpret th is result as normal/abnormal . ALKALINE PHOSPHATASE 116 U/L 40-136 (test code = 2203) AST (test code = 47 U/L 9-40 H 2217) ALT (test code = 33 U/L 5-40 2218) HEMOGLOBIN [id number] 04:27:11 Test Item Value Reference Range Interpretation Comments HEMOGLOBIN A1c (test code = 95610) 5.7 % 4.2-5.6 H CBC W/AUTO DIFF WITH [id number] 03:03:33 Test Item Value Reference Range Interpretation [...] RBCS 0.00 K/UL 0.00-0.11 (test code = 11665) COMPREHENSIVE METABOLIC [id number] 00:00:00 Test Item Value Reference Range Interpretation Comments GLUCOSE (test code = 2217) 90 MG/DL BUN (test code = 2208) 13 MG/DL CREATININE (test code = 2214) 1.18 MG/DL eGFR (2020 CKD-EPI) (test code 54 ML/MIN/1.73 = 06587) CALC BUN/CREAT (test code = 11 RATIO [...] code = 2219) 33 U/L COMPREHENSIVE METABOLIC [id number] 00:00:00 Test Item Value Reference Range Interpretation Comments GLUCOSE (test code = 2217) 90 MG/DL BUN (test code = 2208) 13 MG/DL CREATININE (test code = 2214) 1.18 MG/DL eGFR (2020 CKD-EPI) (test code 54 ML/MIN/1.73 = 25033) CALC BUN/CREAT (test code = 11 RATIO [...] code = 2219) 33 U/L CBC W/AUTO [id number] 00:00:00 Test Item Value Reference Range Interpretation [...] NUCLEATED RBCS (test code = 0.00 K/UL 29216) CBC W/AUTO [id number] 00:00:00 Test Item Value Reference Range Interpretation [...] NUCLEATED RBCS (test code = 0.00 K/UL 73236) CBC W/AUTO [id number] 00:00:00 Test Item Value Reference Range Interpretation [...] NUCLEATED RBCS (test code = 0.00 K/UL 18792) HEMOGLOBIN [id number] 00:00:00 Test Item Value Reference Range Interpretation Comments HEMOGLOBIN A1c (test code = 40884) 5.7 % HEMOGLOBIN [id number] 00:00:00 Test Item Value Reference Range Interpretation Comments HEMOGLOBIN A1c (test code = 07986) 5.7 % HEMOGLOBIN [id number] 00:00:00 Test Item Value Reference Range Interpretation Comments HEMOGLOBIN A1c (test code = 20909) 5.7 % LIPID [id number] 00:00:00 Test Item Value Reference Range Interpretation Comments CHOLESTEROL (test code = 2210) 180 MG/DL TRIGLYCERIDES (test code = 2232) 95 MG/DL HDL CHOLESTEROL (test code = 2220) 52 MG/DL CALC LDL CHOL (test code = 2237) 109 MG/DL RISK RATIO LDL/HDL (test code = 2.10 RATIO 2238) LIPID [id number] 00:00:00 Test Item Value Reference Range Interpretation Comments CHOLESTEROL (test code = 2210) 180 MG/DL TRIGLYCERIDES (test code = 2232) 95 MG/DL HDL CHOLESTEROL (test code = 2220) 52 MG/DL CALC LDL CHOL (test code = 2237) 109 MG/DL RISK RATIO LDL/HDL (test code = 2.10 RATIO 2238) COMPREHENSIVE METABOLIC [id number] 00:00:00 Test Item Value Reference Range Interpretation Comments GLUCOSE (test code = 2217) 90 MG/DL BUN (test code = 2208) 13 MG/DL CREATININE (test code = 2214) 1.18 MG/DL eGFR (2020 CKD-EPI) (test code 54 ML/MIN/1.73 = 22162) CALC BUN/CREAT (test code = 11 RATIO [...] CALC GLOBULIN (test code = 2.2 G/DL 0) CALC A/G RATIO (test code = 2.3 RATIO 2234) BILIRUBIN, TOTAL (test code = 0.5 MG/DL 2206) ALKALINE PHOSPHATASE (test 116 U/L code = 2204) AST (test code = 2218) 47 U/L ALT (test code = 2219) 33 U/L COMPREHENSIVE METABOLIC [id number] 00:00:00 Test Item Value Reference Range Interpretation Comments GLUCOSE (test code = 2217) 90 MG/DL BUN (test code = 2208) 13 MG/DL CREATININE (test code = 2214) 1.18 MG/DL eGFR (2020 CKD-EPI) (test code 54 ML/MIN/1.73 = 53469) CALC BUN/CREAT (test code = 11 RATIO [...] A/G RATIO (test code = 2.3 RATIO 2233) BILIRUBIN, TOTAL (test code = 0.5 MG/DL 2206) ALKALINE PHOSPHATASE (test 116 U/L code = 2204) AST (test code = 2218) 47 U/L ALT (test code = 2219) 33 U/L CBC W/AUTO [id number] 00:00:00 Test Item Value Reference Range Interpretation [...] NUCLEATED RBCS (test code = 0.00 K/UL 68963) CBC W/AUTO [id number] 00:00:00 Test Item Value Reference Range Interpretation [...] NUCLEATED RBCS (test code = 0.00 K/UL 47711) CBC W/AUTO [id number] 00:00:00 Test Item Value Reference Range Interpretation [...] NUCLEATED RBCS (test code = 0.00 K/UL 63457) HEMOGLOBIN [id number] 00:00:00 Test Item Value Reference Range Interpretation Comments HEMOGLOBIN A1c (test code = 90729) 5.7 % HEMOGLOBIN [id number] 00:00:00 Test Item Value Reference Range Interpretation Comments HEMOGLOBIN A1c (test code = 47556) 5.7 % HEMOGLOBIN [id number] 00:00:00 Test Item Value Reference Range Interpretation Comments HEMOGLOBIN A1c (test code = 92262) 5.7 % LIPID [id number] 00:00:00 Test Item Value Reference Range Interpretation Comments CHOLESTEROL (test code = 2210) 180 MG/DL TRIGLYCERIDES (test code = 2232) 95 MG/DL HDL CHOLESTEROL (test code = 2220) 52 MG/DL CALC LDL CHOL (test code = 2237) 109 MG/DL RISK RATIO LDL/HDL (test code = 2.10 RATIO 2238) LIPID [id number] 00:00:00 Test Item Value Reference Range Interpretation Comments CHOLESTEROL (test code = 2210) 180 MG/DL TRIGLYCERIDES (test code = 2232) 95 MG/DL HDL CHOLESTEROL (test code = 2220) 52 MG/DL CALC LDL CHOL (test code = 2237) 109 MG/DL RISK RATIO LDL/HDL (test code = 2.10 RATIO 2238) COMPREHENSIVE METABOLIC [id number] 00:00:00 Test Item Value Reference Range Interpretation Comments GLUCOSE (test code = 2217) 90 MG/DL BUN (test code = 2208) 13 MG/DL CREATININE (test code = 2214) 1.18 MG/DL eGFR (2020 CKD-EPI) (test code 54 ML/MIN/1.73 = 99613) CALC BUN/CREAT (test code = 11 RATIO [...] code = 2219) 33 U/L COMPREHENSIVE METABOLIC [id number] 00:00:00 Test Item Value Reference Range Interpretation Comments GLUCOSE (test code = 2217) 90 MG/DL BUN (test code = 2208) 13 MG/DL CREATININE (test code = 2214) 1.18 MG/DL eGFR (2020 CKD-EPI) (test code 54 ML/MIN/1.73 = 11559) CALC BUN/CREAT (test code = 11 RATIO 2235) SODIUM (test code = 2231) 141 MEQ/L POTASSIUM (test code = 2228) 3.5 MEQ/L CHLORIDE (test code = 2215) 99 MEQ/L CARBON DIOXIDE (test code = 27 MEQ/L 220) CALCIUM (test code = 2209) 10.2 MG/DL PROTEIN, TOTAL (test code = 7.2 G/DL 222) ALBUMIN (test code = 2201) 5.0 G/DL CALC GLOBULIN (test code = 2.2 G/DL 2240) CALC A/G RATIO (test code = 2.3 RATIO 2234) BILIRUBIN, TOTAL (test code = 0.5 MG/DL 2207) ALKALINE PHOSPHATASE (test 116 U/L code = 2204) AST (test code = 2218) 47 U/L ALT (test code = 2219) 33 U/L CBC W/AUTO [id number] 00:00:00 Test Item Value Reference Range Interpretation [...] NUCLEATED RBCS (test code = 0.00 K/UL 70129) CBC W/AUTO [id number] 00:00:00 Test Item Value Reference Range Interpretation [...] NUCLEATED RBCS (test code = 0.00 K/UL 22841) CBC W/AUTO [id number] 00:00:00 Test Item Value Reference Range Interpretation [...] NUCLEATED RBCS (test code = 0.00 K/UL 10910) HEMOGLOBIN [id number] 00:00:00 Test Item Value Reference Range Interpretation Comments HEMOGLOBIN A1c (test code = 68129) 5.7 % HEMOGLOBIN [id number] 00:00:00 Test Item Value Reference Range Interpretation Comments HEMOGLOBIN A1c (test code = 74706) 5.7 % HEMOGLOBIN [id number] 00:00:00 Test Item Value Reference Range Interpretation Comments HEMOGLOBIN A1c (test code = 95127) 5.7 % LIPID [id number] 00:00:00 Test Item Value Reference Range Interpretation Comments CHOLESTEROL (test code = 2210) 180 MG/DL TRIGLYCERIDES (test code = 2232) 95 MG/DL HDL CHOLESTEROL (test code = 2220) 52 MG/DL CALC LDL CHOL (test code = 2237) 109 MG/DL RISK RATIO LDL/HDL (test code = 2.10 RATIO 2238) LIPID [id number] 00:00:00 Test Item Value Reference Range Interpretation Comments CHOLESTEROL (test code = 2210) 180 MG/DL TRIGLYCERIDES (test code = 2232) 95 MG/DL HDL CHOLESTEROL (test code = 2220) 52 MG/DL CALC LDL CHOL (test code = 2237) 109 MG/DL RISK RATIO LDL/HDL (test code = 2.10 RATIO 2238) VITAMIN D, 25 [id number] 00:00:00 Test Item Value Reference Range Interpretation Comments VITAMIN D, 25 OH (test code = 4958) 45 NG/ML VITAMIN D, 25 [id number] 00:00:00 Test Item Value Reference Range Interpretation Comments VITAMIN D, 25 OH (test code = 4958) 45 NG/ML VITAMIN D, 25 [id number] 00:00:00 Test Item Value Reference Range Interpretation Comments VITAMIN D, 25 OH (test code = 4958) 45 NG/ML VITAMIN D, 25 [id number] 00:00:00 Test Item Value Reference Range Interpretation Comments VITAMIN D, 25 OH (test code = 4958) 45 NG/ML VITAMIN D, 25 [id number] 00:00:00 Test Item Value Reference Range Interpretation Comments VITAMIN D, 25 OH (test code = 4958) 45 NG/ML VITAMIN D, 25 [id number] 00:00:00 Test Item Value Reference Range Interpretation Comments VITAMIN D, 25 OH (test code = 4958) 45 NG/ML RISPERIDONE, [id number] 00:00:00 Test Item Value Reference Range Interpretation Comments RISPERIDONE (test code = 56614) <5.0 ng/mL 9-OH RISPERIDONE (test code = <5.0 ng/mL 15495) RISPERIDONE + 9-OH RISPER (test <10.0 ng/mL code = 46660) RISPERIDONE, [id number] 00:00:00 Test Item Value Reference Range Interpretation Comments RISPERIDONE (test code = 81303) <5.0 ng/mL 9-OH RISPERIDONE (test code = <5.0 ng/mL 73425) RISPERIDONE + 9-OH RISPER (test <10.0 ng/mL code = 13957) RISPERIDONE, [id number] 00:00:00 Test Item Value Reference Range Interpretation Comments RISPERIDONE (test code = 49383) <5.0 ng/mL 9-OH RISPERIDONE (test code = <5.0 ng/mL 67811) RISPERIDONE + 9-OH RISPER (test <10.0 ng/mL code = 57906) RISPERIDONE, [id number] 00:00:00 Test Item Value Reference Range Interpretation Comments RISPERIDONE (test code = 99356) <5.0 ng/mL 9-OH RISPERIDONE (test code = <5.0 ng/mL 55024) RISPERIDONE + 9-OH RISPER (test <10.0 ng/mL code = 51703) RISPERIDONE, [id number] 00:00:00 Test Item Value Reference Range Interpretation Comments RISPERIDONE (test code = 62257) <5.0 ng/mL 9-OH RISPERIDONE (test code = <5.0 ng/mL 98162) RISPERIDONE + 9-OH RISPER (test <10.0 ng/mL code = 13467) RISPERIDONE, [id number] 00:00:00 Test Item Value Reference Range Interpretation Comments RISPERIDONE (test code = 20972) <5.0 ng/mL 9-OH RISPERIDONE (test code = <5.0 ng/mL 25470) RISPERIDONE + 9-OH RISPER (test <10.0 ng/mL code = 01852) [id number] 00:00:00 Test Item Value Reference Range Interpretation Comments LEVETIRACETAM (test code = 12542) 10.1 mcg/mL [id number] 00:00:00 Test Item Value Reference Range Interpretation Comments LEVETIRACETAM (test code = 67337) 10.1 mcg/mL [id number] 00:00:00 Test Item Value Reference Range Interpretation Comments LEVETIRACETAM (test code = 79143) 10.1 mcg/mL [id number] 00:00:00 Test Item Value Reference Range Interpretation Comments LEVETIRACETAM (test code = 39105) 10.1 mcg/mL [id number] 00:00:00 Test Item Value Reference Range Interpretation Comments LEVETIRACETAM (test code = 93105) 10.1 mcg/mL [id number] 00:00:00 Test Item Value Reference Range Interpretation Comments LEVETIRACETAM (test code = 62713) 10.1 mcg/mL RACHEL TITER AND PATTERN [REFLEX]2020-09-02 00:00:00 Test Item Value Reference Range Interpretation Comments PATTERN (test code = HOMOGENEOUS 18841) RACHEL TITER (test code = 1:320 TITER 3550) PATTERN 2 (test code = NOT DETECTED 29956) RACHEL TITER 2 (test code = NOT DETECTED TITER 08246) PATTERN 3 (test code = NOT DETECTED 39134) RACHEL TITER 3 (test code = NOT DETECTED TITER 88114) METHOD (test code = 49713) (NOTE) HEMOGLOBIN [id number] 00:00:00 Test Item Value Reference Range Interpretation Comments HEMOGLOBIN A1c (test code = 28011) 5.9 % HEMOGLOBIN [id number] 00:00:00 Test Item Value Reference Range Interpretation Comments HEMOGLOBIN A1c (test code = 60111) 5.9 % HEMOGLOBIN [id number] 00:00:00 Test Item Value Reference Range Interpretation Comments HEMOGLOBIN A1c (test code = 36613) 5.9 % RACHEL TITER AND PATTERN [REFLEX]2020-09-02 00:00:00 Test Item Value Reference Range Interpretation Comments PATTERN (test code = HOMOGENEOUS 55731) RACHEL TITER (test code = 1:320 TITER 3550) PATTERN 2 (test code = NOT DETECTED 76352) RACHEL TITER 2 (test code = NOT DETECTED TITER 42779) PATTERN 3 (test code = NOT DETECTED 28326) RACHEL TITER 3 (test code = NOT DETECTED TITER 90399) METHOD (test code = 50132) (NOTE) HEMOGLOBIN [id number] 00:00:00 Test Item Value Reference Range Interpretation Comments HEMOGLOBIN A1c (test code = 12107) 5.9 % HEMOGLOBIN [id number] 00:00:00 Test Item Value Reference Range Interpretation Comments HEMOGLOBIN A1c (test code = 93161) 5.9 % HEMOGLOBIN [id number] 00:00:00 Test Item Value Reference Range Interpretation Comments HEMOGLOBIN A1c (test code = 71814) 5.9 % RACHEL TITER AND PATTERN [REFLEX]2020-09-02 00:00:00 Test Item Value Reference Range Interpretation Comments PATTERN (test code = HOMOGENEOUS 67594) RACHEL TITER (test code = 1:320 TITER 3550) PATTERN 2 (test code = NOT DETECTED 88228) RACHEL TITER 2 (test code = NOT DETECTED TITER 41358) PATTERN 3 (test code = NOT DETECTED 36246) RACHEL TITER 3 (test code = NOT DETECTED TITER 22751) METHOD (test code = 03897) (NOTE) HEMOGLOBIN [id number] 00:00:00 Test Item Value Reference Range Interpretation Comments HEMOGLOBIN A1c (test code = 85059) 5.9 % HEMOGLOBIN [id number] 00:00:00 Test Item Value Reference Range Interpretation Comments HEMOGLOBIN A1c (test code = 72880) 5.9 % HEMOGLOBIN [id number] 00:00:00 Test Item Value Reference Range Interpretation Comments HEMOGLOBIN A1c (test code = 43133) 5.9 % COMPREHENSIVE METABOLIC [id number] 00:00:00 Test Item Value Reference Range Interpretation Comments GLUCOSE (test code = 2217) 86 MG/DL BUN (test code = 2208) 14 MG/DL CREATININE (test code = 2214) 1.03 MG/DL eGFR AMER. (test code 70 ML/MIN/1.73 = 07704) eGFR NON- AMER. (test 60 ML/MIN/1.73 code = 08673) CALC BUN/CREAT (test code = 14 RATIO [...] RATIO 2233) BILIRUBIN, TOTAL (test code = 0.5 MG/DL 2206) ALKALINE PHOSPHATASE (test 112 U/L code = 2204) AST (test code = 2218) 44 U/L ALT (test code = 2219) 34 U/L CBC W/AUTO [id number] 00:00:00 Test Item Value Reference Range Interpretation [...] NUCLEATED RBCS (test code = 0.00 K/UL 28324) CBC W/AUTO [id number] 00:00:00 Test Item Value Reference Range Interpretation [...] NUCLEATED RBCS (test code = 0.00 K/UL 06611) CBC W/AUTO [id number] 00:00:00 Test Item Value Reference Range Interpretation [...] NUCLEATED RBCS (test code = 0.00 K/UL 46334) RHEUMATOID FACTOR, [id number] 00:00:00 Test Item Value Reference Range Interpretation Comments RHEUMATOID FACTOR, QUANT (test code <10 IU/ML = 3502) RHEUMATOID FACTOR, [id number] 00:00:00 Test Item Value Reference Range Interpretation Comments RHEUMATOID FACTOR, QUANT (test code <10 IU/ML = 3502) RHEUMATOID FACTOR, [id number] 00:00:00 Test Item Value Reference Range Interpretation Comments RHEUMATOID FACTOR, QUANT (test code <10 IU/ML = 3502) C-REACTIVE [id number] 00:00:00 Test Item Value Reference Range Interpretation Comments C-REACTIVE PROTEIN (test code = <0.3 MG/DL 3513) C-REACTIVE [id number] 00:00:00 Test Item Value Reference Range Interpretation Comments C-REACTIVE PROTEIN (test code = <0.3 MG/DL 3513) RACHEL (ANTI-NUCLEAR AB) WITH REFLEX [id number] 00:00:00 Test Item Value Reference Range Interpretation Comments ANTI-NUCLEAR ANTIBODIES (test code = POSITIVE 3506) RACHEL (ANTI-NUCLEAR AB) WITH REFLEX [id number] 00:00:00 Test Item Value Reference Range Interpretation Comments ANTI-NUCLEAR ANTIBODIES (test code = POSITIVE 3506) SEDIMENTATION [id number] 00:00:00 Test Item Value Reference Range Interpretation Comments SEDIMENTATION RATE (test code = 5 MM/HOUR 1017) SEDIMENTATION [id number] 00:00:00 Test Item Value Reference Range Interpretation Comments SEDIMENTATION RATE (test code = 5 MM/HOUR 1017) URIC [id number] 00:00:00 Test Item Value Reference Range Interpretation Comments URIC ACID (test code = 2233) 4.9 MG/DL URIC [id number] 00:00:00 Test Item Value Reference Range Interpretation Comments URIC ACID (test code = 2233) 4.9 MG/DL [id number] 00:00:00 Test Item Value Reference Range Interpretation Comments TSH, THIRD GENERATION (test code 0.501 UIU/ML = 2821) [id number] 00:00:00 Test Item Value Reference Range Interpretation Comments TSH, THIRD GENERATION (test code 0.501 UIU/ML = 2821) [id number] 00:00:00 Test Item Value Reference Range Interpretation Comments TSH, THIRD GENERATION (test code 0.501 UIU/ML = 2821) COMPREHENSIVE METABOLIC [id number] 00:00:00 Test Item Value Reference Range Interpretation Comments GLUCOSE (test code = 2217) 86 MG/DL BUN (test code = 2208) 14 MG/DL CREATININE (test code = 2214) 1.03 MG/DL eGFR AMER. (test code 70 ML/MIN/1.73 = 35097) eGFR NON- AMER. (test 60 ML/MIN/1.73 code = 50049) CALC BUN/CREAT (test code = 14 RATIO [...] code = 2219) 34 U/L COMPREHENSIVE METABOLIC [id number] 00:00:00 Test Item Value Reference Range Interpretation Comments GLUCOSE (test code = 2217) 86 MG/DL BUN (test code = 2208) 14 MG/DL CREATININE (test code = 2214) 1.03 MG/DL eGFR AMER. (test code 70 ML/MIN/1.73 = 30868) eGFR NON- AMER. (test 60 ML/MIN/1.73 code = 61951) CALC BUN/CREAT (test code = 14 RATIO [...] code = 2219) 34 U/L CBC W/AUTO [id number] 00:00:00 Test Item Value Reference Range Interpretation [...] NUCLEATED RBCS (test code = 0.00 K/UL 61343) CBC W/AUTO [id number] 00:00:00 Test Item Value Reference Range Interpretation [...] NUCLEATED RBCS (test code = 0.00 K/UL 38836) CBC W/AUTO [id number] 00:00:00 Test Item Value Reference Range Interpretation [...] NUCLEATED RBCS (test code = 0.00 K/UL 58764) RHEUMATOID FACTOR, [id number] 00:00:00 Test Item Value Reference Range Interpretation Comments RHEUMATOID FACTOR, QUANT (test code <10 IU/ML = 3502) RHEUMATOID FACTOR, [id number] 00:00:00 Test Item Value Reference Range Interpretation Comments RHEUMATOID FACTOR, QUANT (test code <10 IU/ML = 3502) RHEUMATOID FACTOR, [id number] 00:00:00 Test Item Value Reference Range Interpretation Comments RHEUMATOID FACTOR, QUANT (test code <10 IU/ML = 3502) C-REACTIVE [id number] 00:00:00 Test Item Value Reference Range Interpretation Comments C-REACTIVE PROTEIN (test code = <0.3 MG/DL 3513) C-REACTIVE [id number] 00:00:00 Test Item Value Reference Range Interpretation Comments C-REACTIVE PROTEIN (test code = <0.3 MG/DL 3513) RACHEL (ANTI-NUCLEAR AB) WITH REFLEX [id number] 00:00:00 Test Item Value Reference Range Interpretation Comments ANTI-NUCLEAR ANTIBODIES (test code = POSITIVE 3506) RACHEL (ANTI-NUCLEAR AB) WITH REFLEX [id number] 00:00:00 Test Item Value Reference Range Interpretation Comments ANTI-NUCLEAR ANTIBODIES (test code = POSITIVE 3506) SEDIMENTATION [id number] 00:00:00 Test Item Value Reference Range Interpretation Comments SEDIMENTATION RATE (test code = 5 MM/HOUR 1017) SEDIMENTATION [id number] 00:00:00 Test Item Value Reference Range Interpretation Comments SEDIMENTATION RATE (test code = 5 MM/HOUR 1017) URIC [id number] 00:00:00 Test Item Value Reference Range Interpretation Comments URIC ACID (test code = 2233) 4.9 MG/DL URIC [id number] 00:00:00 Test Item Value Reference Range Interpretation Comments URIC ACID (test code = 2233) 4.9 MG/DL [id number] 00:00:00 Test Item Value Reference Range Interpretation Comments TSH, THIRD GENERATION (test code 0.501 UIU/ML = 2821) [id number] 00:00:00 Test Item Value Reference Range Interpretation Comments TSH, THIRD GENERATION (test code 0.501 UIU/ML = 2821) [id number] 00:00:00 Test Item Value Reference Range Interpretation Comments TSH, THIRD GENERATION (test code 0.501 UIU/ML = 2821) COMPREHENSIVE METABOLIC [id number] 00:00:00 Test Item Value Reference Range Interpretation Comments GLUCOSE (test code = 2217) 86 MG/DL BUN (test code = 2208) 14 MG/DL CREATININE (test code = 2214) 1.03 MG/DL eGFR AMER. (test code 70 ML/MIN/1.73 = 37400) eGFR NON- AMER. (test 60 ML/MIN/1.73 code = 86435) CALC BUN/CREAT (test code = 14 RATIO [...] code = 2219) 34 U/L COMPREHENSIVE METABOLIC [id number] 00:00:00 Test Item Value Reference Range Interpretation Comments GLUCOSE (test code = 2217) 86 MG/DL BUN (test code = 2208) 14 MG/DL CREATININE (test code = 2214) 1.03 MG/DL eGFR AMER. (test code 70 ML/MIN/1.73 = 94628) eGFR NON- AMER. (test 60 ML/MIN/1.73 code = 56121) CALC BUN/CREAT (test code = 14 RATIO [...] = 0.5 MG/DL 7) ALKALINE PHOSPHATASE (test 112 U/L code = 2204) AST (test code = 2218) 44 U/L ALT (test code = 2219) 34 U/L CBC W/AUTO [id number] 00:00:00 Test Item Value Reference Range Interpretation [...] NUCLEATED RBCS (test code = 0.00 K/UL 50057) CBC W/AUTO [id number] 00:00:00 Test Item Value Reference Range Interpretation [...] NUCLEATED RBCS (test code = 0.00 K/UL 05619) CBC W/AUTO [id number] 00:00:00 Test Item Value Reference Range Interpretation [...] NUCLEATED RBCS (test code = 0.00 K/UL 47984) RHEUMATOID FACTOR, [id number] 00:00:00 Test Item Value Reference Range Interpretation Comments RHEUMATOID FACTOR, QUANT (test code <10 IU/ML = 3502) RHEUMATOID FACTOR, [id number] 00:00:00 Test Item Value Reference Range Interpretation Comments RHEUMATOID FACTOR, QUANT (test code <10 IU/ML = 3502) RHEUMATOID FACTOR, [id number] 00:00:00 Test Item Value Reference Range Interpretation Comments RHEUMATOID FACTOR, QUANT (test code <10 IU/ML = 3502) C-REACTIVE [id number] 00:00:00 Test Item Value Reference Range Interpretation Comments C-REACTIVE PROTEIN (test code = <0.3 MG/DL 3513) C-REACTIVE [id number] 00:00:00 Test Item Value Reference Range Interpretation Comments C-REACTIVE PROTEIN (test code = <0.3 MG/DL 3513) RACHEL (ANTI-NUCLEAR AB) WITH REFLEX [id number] 00:00:00 Test Item Value Reference Range Interpretation Comments ANTI-NUCLEAR ANTIBODIES (test code = POSITIVE 3506) RACHEL (ANTI-NUCLEAR AB) WITH REFLEX [id number] 00:00:00 Test Item Value Reference Range Interpretation Comments ANTI-NUCLEAR ANTIBODIES (test code = POSITIVE 3506) SEDIMENTATION [id number] 00:00:00 Test Item Value Reference Range Interpretation Comments SEDIMENTATION RATE (test code = 5 MM/HOUR 1017) SEDIMENTATION [id number] 00:00:00 Test Item Value Reference Range Interpretation Comments SEDIMENTATION RATE (test code = 5 MM/HOUR 1017) URIC [id number] 00:00:00 Test Item Value Reference Range Interpretation Comments URIC ACID (test code = 2233) 4.9 MG/DL URIC [id number] 00:00:00 Test Item Value Reference Range Interpretation Comments URIC ACID (test code = 2233) 4.9 MG/DL [id number] 00:00:00 Test Item Value Reference Range Interpretation Comments TSH, THIRD GENERATION (test code 0.501 UIU/ML = 2821) [id number] 00:00:00 Test Item Value Reference Range Interpretation Comments TSH, THIRD GENERATION (test code 0.501 UIU/ML = 2821) [id number] 00:00:00 Test Item Value Reference Range Interpretation Comments TSH, THIRD GENERATION (test code 0.501 UIU/ML = 2821) COMPREHENSIVE METABOLIC [id number] 00:00:00 Test Item Value Reference Range Interpretation Comments GLUCOSE (test code = 2217) 86 MG/DL BUN (test code = 2208) 14 MG/DL CREATININE (test code = 2214) 1.03 MG/DL eGFR AMER. (test code 70 ML/MIN/1.73 = 36293) eGFR NON- AMER. (test 60 ML/MIN/1.73 code = 10551) CALC BUN/CREAT (test code = 14 RATIO [...] ALT (test code = 2219) 34 U/L [id number] 00:00:00 Test Item Value Reference Range Interpretation Comments TSH, THIRD GENERATION (test code 1.460 UIU/ML = 2821) [id number] 00:00:00 Test Item Value Reference Range Interpretation Comments TSH, THIRD GENERATION (test code 1.460 UIU/ML = 2821) [id number] 00:00:00 Test Item Value Reference Range Interpretation Comments TSH, THIRD GENERATION (test code 1.460 UIU/ML = 2821) [id number] 00:00:00 Test Item Value Reference Range Interpretation Comments TSH, THIRD GENERATION (test code 1.460 UIU/ML = 2821) [id number] 00:00:00 Test Item Value Reference Range Interpretation Comments TSH, THIRD GENERATION (test code 1.460 UIU/ML = 2821) [id number] 00:00:00 Test Item Value Reference Range Interpretation Comments TSH, THIRD GENERATION (test code 1.460 UIU/ML = 2821) [id number] 00:00:00 Test Item Value Reference Range Interpretation Comments TSH, THIRD GENERATION (test code 1.460 UIU/ML = 2821) [id number] 00:00:00 Test Item Value Reference Range Interpretation Comments TSH, THIRD GENERATION (test code 1.460 UIU/ML = 2821) [id number] 00:00:00 Test Item Value Reference Range Interpretation Comments TSH, THIRD GENERATION (test code 1.460 UIU/ML = 2821) [id number] 00:00:00 Test Item Value Reference Range Interpretation Comments TSH, THIRD GENERATION (test >100.000 UIU/ML code = 2821) [id number] 00:00:00 Test Item Value Reference Range Interpretation Comments TSH, THIRD GENERATION (test >100.000 UIU/ML code = 2821) VITAMIN D, 25 [id number] 00:00:00 Test Item Value Reference Range Interpretation Comments VITAMIN D, 25 OH (test code = 4958) 24 NG/ML VITAMIN D, 25 [id number] 00:00:00 Test Item Value Reference Range Interpretation Comments VITAMIN D, 25 OH (test code = 4958) 24 NG/ML CBC W/AUTO [id number] 00:00:00 Test Item Value Reference Range Interpretation [...] code = 1015) 301 K/UL CBC W/AUTO [id number] 00:00:00 Test Item Value Reference Range Interpretation [...] code = 1015) 301 K/UL CBC W/AUTO [id number] 00:00:00 Test Item Value Reference Range Interpretation [...] code = 1015) 301 K/UL COMPREHENSIVE METABOLIC [id number] 00:00:00 Test Item Value Reference Range Interpretation Comments GLUCOSE (test code = 2217) 86 MG/DL BUN (test code = 2208) 14 MG/DL CREATININE (test code = 2214) 1.00 MG/DL eGFR AMER. (test code 72 ML/MIN/1.73 = 56498) eGFR NON- AMER. (test 62 ML/MIN/1.73 code = 36620) CALC BUN/CREAT (test code = 14 RATIO [...] code = 2219) 20 U/L COMPREHENSIVE METABOLIC [id number] 00:00:00 Test Item Value Reference Range Interpretation Comments GLUCOSE (test code = 2217) 86 MG/DL BUN (test code = 2208) 14 MG/DL CREATININE (test code = 2214) 1.00 MG/DL eGFR AMER. (test code 72 ML/MIN/1.73 = 50493) eGFR NON- AMER. (test 62 ML/MIN/1.73 code = 00422) CALC BUN/CREAT (test code = 14 RATIO 2235) SODIUM (test code = 2231) 144 MEQ/L POTASSIUM (test code = 2228) 3.9 MEQ/L CHLORIDE (test code = 2215) 104 MEQ/L CARBON DIOXIDE (test code = 30 MEQ/L 2205) CALCIUM (test code = 2209) 9.1 MG/DL PROTEIN, TOTAL (test code = 6.9 G/DL 9) ALBUMIN (test code = 2201) 4.6 G/DL CALC GLOBULIN (test code = 2.3 G/DL 2240) CALC A/G RATIO (test code = 2.0 RATIO 2234) BILIRUBIN, TOTAL (test code = 0.2 MG/DL 2206) ALKALINE PHOSPHATASE (test 95 U/L code = 2204) AST (test code = 2218) 30 U/L ALT (test code = 2219) 20 U/L [id number] 00:00:00 Test Item Value Reference Range Interpretation Comments TSH, THIRD GENERATION (test >100.000 UIU/ML code = 2821) [id number] 00:00:00 Test Item Value Reference Range Interpretation Comments TSH, THIRD GENERATION (test >100.000 UIU/ML code = 2821) [id number] 00:00:00 Test Item Value Reference Range Interpretation Comments TSH, THIRD GENERATION (test >100.000 UIU/ML code = 2821) VITAMIN D, 25 [id number] 00:00:00 Test Item Value Reference Range Interpretation Comments VITAMIN D, 25 OH (test code = 4958) 24 NG/ML VITAMIN D, 25 [id number] 00:00:00 Test Item Value Reference Range Interpretation Comments VITAMIN D, 25 OH (test code = 4958) 24 NG/ML CBC W/AUTO [id number] 00:00:00 Test Item Value Reference Range Interpretation [...] code = 1015) 301 K/UL CBC W/AUTO [id number] 00:00:00 Test Item Value Reference Range Interpretation [...] code = 1015) 301 K/UL CBC W/AUTO [id number] 00:00:00 Test Item Value Reference Range Interpretation [...] code = 1015) 301 K/UL COMPREHENSIVE METABOLIC [id number] 00:00:00 Test Item Value Reference Range Interpretation Comments GLUCOSE (test code = 2217) 86 MG/DL BUN (test code = 2208) 14 MG/DL CREATININE (test code = 2214) 1.00 MG/DL eGFR AMER. (test code 72 ML/MIN/1.73 = 88987) eGFR NON- AMER. (test 62 ML/MIN/1.73 code = 85472) CALC BUN/CREAT (test code = 14 RATIO [...] code = 2219) 20 U/L COMPREHENSIVE METABOLIC [id number] 00:00:00 Test Item Value Reference Range Interpretation Comments GLUCOSE (test code = 2217) 86 MG/DL BUN (test code = 2208) 14 MG/DL CREATININE (test code = 2214) 1.00 MG/DL eGFR AMER. (test code 72 ML/MIN/1.73 = 64362) eGFR NON- AMER. (test 62 ML/MIN/1.73 code = 14148) CALC BUN/CREAT (test code = 14 RATIO [...] ALT (test code = 2219) 20 U/L [id number] 00:00:00 Test Item Value Reference Range Interpretation Comments TSH, THIRD GENERATION (test >100.000 UIU/ML code = 2821) [id number] 00:00:00 Test Item Value Reference Range Interpretation Comments TSH, THIRD GENERATION (test >100.000 UIU/ML code = 2821) [id number] 00:00:00 Test Item Value Reference Range Interpretation Comments TSH, THIRD GENERATION (test >100.000 UIU/ML code = 2821) VITAMIN D, 25 [id number] 00:00:00 Test Item Value Reference Range Interpretation Comments VITAMIN D, 25 OH (test code = 4958) 24 NG/ML VITAMIN D, 25 [id number] 00:00:00 Test Item Value Reference Range Interpretation Comments VITAMIN D, 25 OH (test code = 4958) 24 NG/ML CBC W/AUTO [id number] 00:00:00 Test Item Value Reference Range Interpretation [...] code = 1015) 301 K/UL CBC W/AUTO [id number] 00:00:00 Test Item Value Reference Range Interpretation [...] code = 1015) 301 K/UL CBC W/AUTO [id number] 00:00:00 Test Item Value Reference Range Interpretation [...] code = 1015) 301 K/UL COMPREHENSIVE METABOLIC [id number] 00:00:00 Test Item Value Reference Range Interpretation Comments GLUCOSE (test code = 2217) 86 MG/DL BUN (test code = 2208) 14 MG/DL CREATININE (test code = 2214) 1.00 MG/DL eGFR AMER. (test code 72 ML/MIN/1.73 = 85122) eGFR NON- AMER. (test 62 ML/MIN/1.73 code = 63848) CALC BUN/CREAT (test code = 14 RATIO [...] code = 2219) 20 U/L COMPREHENSIVE METABOLIC [id number] 00:00:00 Test Item Value Reference Range Interpretation Comments GLUCOSE (test code = 2217) 86 MG/DL BUN (test code = 2208) 14 MG/DL CREATININE (test code = 2214) 1.00 MG/DL eGFR AMER. (test code 72 ML/MIN/1.73 = 21623) eGFR NON- AMER. (test 62 ML/MIN/1.73 code = 61521) CALC BUN/CREAT (test code = 14 RATIO [...] ALT (test code = 2219) 20 U/L [id number] 00:00:00 Test Item Value Reference Range Interpretation Comments TSH, THIRD GENERATION (test >100.000 UIU/ML code = 2821) XR SHOULDER 2+ VW [id number] 20:06:12 No acute bony abnormality. Mild acromioclavicular joint osteoarthrosis. Preliminary Report Dictatedby Resident: Jesús Burks MD., have reviewed this study and agree [...] reviewed this study and agree with the abovereport.[facility] [id number] 00:00:00 Test Item Value Reference Range Interpretation [...] code = 1015) 249 K/UL RHEUMATOID FACTOR, [id number] 00:00:00 Test Item Value Reference Range Interpretation Comments RHEUMATOID FACTOR, QUANT (test code <10 IU/ML = 3502) RHEUMATOID FACTOR, [id number] 00:00:00 Test Item Value Reference Range Interpretation Comments RHEUMATOID FACTOR, QUANT (test code <10 IU/ML = 3502) RHEUMATOID FACTOR, [id number] 00:00:00 Test Item Value Reference Range Interpretation Comments RHEUMATOID FACTOR, QUANT (test code <10 IU/ML = 3502) VITAMIN D, 25 [id number] 00:00:00 Test Item Value Reference Range Interpretation Comments VITAMIN D, 25 OH (test code = 4958) 24 NG/ML VITAMIN D, 25 [id number] 00:00:00 Test Item Value Reference Range Interpretation Comments VITAMIN D, 25 OH (test code = 4958) 24 NG/ML [id number] 00:00:00 Test Item Value Reference Range Interpretation Comments MAGNESIUM (test code = 2226) 2.0 MG/DL [id number] 00:00:00 Test Item Value Reference Range Interpretation Comments MAGNESIUM (test code = 2226) 2.0 MG/DL [id number] 00:00:00 Test Item Value Reference Range Interpretation Comments MAGNESIUM (test code = 2226) 2.0 MG/DL [id number] 00:00:00 Test Item Value Reference Range Interpretation Comments TSH, THIRD GENERATION (test code 6.220 UIU/ML = 2821) [id number] 00:00:00 Test Item Value Reference Range Interpretation Comments TSH, THIRD GENERATION (test code 6.220 UIU/ML = 2821) [id number] 00:00:00 Test Item Value Reference Range Interpretation Comments TSH, THIRD GENERATION (test code 6.220 UIU/ML = 2821) RACHEL (ANTI-NUCLEAR AB) WITH REFLEX [id number] 00:00:00 Test Item Value Reference Range Interpretation Comments ANTI-NUCLEAR ANTIBODIES (test code = NEGATIVE 3506) RACHEL (ANTI-NUCLEAR AB) WITH REFLEX [id number] 00:00:00 Test Item Value Reference Range Interpretation Comments ANTI-NUCLEAR ANTIBODIES (test code = NEGATIVE 3506) COMPREHENSIVE METABOLIC [id number] 00:00:00 Test Item Value Reference Range Interpretation Comments GLUCOSE (test code = 2217) 79 MG/DL BUN (test code = 2208) 17 MG/DL CREATININE (test code = 2214) 0.78 MG/DL eGFR AMER. (test code 98 ML/MIN/1.73 = 94155) eGFR NON- AMER. (test 85 ML/MIN/1.73 code = 60305) CALC BUN/CREAT (test code = 22 RATIO [...] code = 2219) 18 U/L COMPREHENSIVE METABOLIC [id number] 00:00:00 Test Item Value Reference Range Interpretation Comments GLUCOSE (test code = 2217) 79 MG/DL BUN (test code = 2208) 17 MG/DL CREATININE (test code = 2214) 0.78 MG/DL eGFR AMER. (test code 98 ML/MIN/1.73 = 65071) eGFR NON- AMER. (test 85 ML/MIN/1.73 code = 33716) CALC BUN/CREAT (test code = 22 RATIO [...] code = 2219) 18 U/L CBC W/AUTO [id number] 00:00:00 Test Item Value Reference Range Interpretation [...] code = 1015) 249 K/UL CBC W/AUTO [id number] 00:00:00 Test Item Value Reference Range Interpretation [...] code = 1015) 249 K/UL CBC W/AUTO [id number] 00:00:00 Test Item Value Reference Range Interpretation [...] code = 1015) 249 K/UL RHEUMATOID FACTOR, [id number] 00:00:00 Test Item Value Reference Range Interpretation Comments RHEUMATOID FACTOR, QUANT (test code <10 IU/ML = 3502) RHEUMATOID FACTOR, [id number] 00:00:00 Test Item Value Reference Range Interpretation Comments RHEUMATOID FACTOR, QUANT (test code <10 IU/ML = 3502) RHEUMATOID FACTOR, [id number] 00:00:00 Test Item Value Reference Range Interpretation Comments RHEUMATOID FACTOR, QUANT (test code <10 IU/ML = 3502) VITAMIN D, 25 [id number] 00:00:00 Test Item Value Reference Range Interpretation Comments VITAMIN D, 25 OH (test code = 4958) 24 NG/ML VITAMIN D, 25 [id number] 00:00:00 Test Item Value Reference Range Interpretation Comments VITAMIN D, 25 OH (test code = 4958) 24 NG/ML [id number] 00:00:00 Test Item Value Reference Range Interpretation Comments MAGNESIUM (test code = 2226) 2.0 MG/DL [id number] 00:00:00 Test Item Value Reference Range Interpretation Comments MAGNESIUM (test code = 2226) 2.0 MG/DL [id number] 00:00:00 Test Item Value Reference Range Interpretation Comments MAGNESIUM (test code = 2226) 2.0 MG/DL [id number] 00:00:00 Test Item Value Reference Range Interpretation Comments TSH, THIRD GENERATION (test code 6.220 UIU/ML = 2821) [id number] 00:00:00 Test Item Value Reference Range Interpretation Comments TSH, THIRD GENERATION (test code 6.220 UIU/ML = 2821) [id number] 00:00:00 Test Item Value Reference Range Interpretation Comments TSH, THIRD GENERATION (test code 6.220 UIU/ML = 2821) RACHEL (ANTI-NUCLEAR AB) WITH REFLEX [id number] 00:00:00 Test Item Value Reference Range Interpretation Comments ANTI-NUCLEAR ANTIBODIES (test code = NEGATIVE 3506) RACHEL (ANTI-NUCLEAR AB) WITH REFLEX [id number] 00:00:00 Test Item Value Reference Range Interpretation Comments ANTI-NUCLEAR ANTIBODIES (test code = NEGATIVE 3506) COMPREHENSIVE METABOLIC [id number] 00:00:00 Test Item Value Reference Range Interpretation Comments GLUCOSE (test code = 2217) 79 MG/DL BUN (test code = 2208) 17 MG/DL CREATININE (test code = 2214) 0.78 MG/DL eGFR AMER. (test code 98 ML/MIN/1.73 = 57728) eGFR NON- AMER. (test 85 ML/MIN/1.73 code = 06309) CALC BUN/CREAT (test code = 22 RATIO [...] code = 2219) 18 U/L COMPREHENSIVE METABOLIC [id number] 00:00:00 Test Item Value Reference Range Interpretation Comments GLUCOSE (test code = 2217) 79 MG/DL BUN (test code = 2208) 17 MG/DL CREATININE (test code = 2214) 0.78 MG/DL eGFR AMER. (test code 98 ML/MIN/1.73 = 63642) eGFR NON- AMER. (test 85 ML/MIN/1.73 code = 26509) CALC BUN/CREAT (test code = 22 RATIO 2235) SODIUM (test code = 2231) 142 MEQ/L POTASSIUM (test code = 2228) 3.9 MEQ/L CHLORIDE (test code = 2215) 105 MEQ/L CARBON DIOXIDE (test code = 29 MEQ/L 220) CALCIUM (test code = 2209) [...] code = 2219) 18 U/L CBC W/AUTO [id number] 00:00:00 Test Item Value Reference Range Interpretation [...] code = 1015) 249 K/UL CBC W/AUTO [id number] 00:00:00 Test Item Value Reference Range Interpretation [...] code = 1015) 249 K/UL CBC W/AUTO [id number] 00:00:00 Test Item Value Reference Range Interpretation [...] code = 1015) 249 K/UL RHEUMATOID FACTOR, [id number] 00:00:00 Test Item Value Reference Range Interpretation Comments RHEUMATOID FACTOR, QUANT (test code <10 IU/ML = 3502) RHEUMATOID FACTOR, [id number] 00:00:00 Test Item Value Reference Range Interpretation Comments RHEUMATOID FACTOR, QUANT (test code <10 IU/ML = 3502) RHEUMATOID FACTOR, [id number] 00:00:00 Test Item Value Reference Range Interpretation Comments RHEUMATOID FACTOR, QUANT (test code <10 IU/ML = 3502) VITAMIN D, 25 [id number] 00:00:00 Test Item Value Reference Range Interpretation Comments VITAMIN D, 25 OH (test code = 4958) 24 NG/ML VITAMIN D, 25 [id number] 00:00:00 Test Item Value Reference Range Interpretation Comments VITAMIN D, 25 OH (test code = 4958) 24 NG/ML [id number] 00:00:00 Test Item Value Reference Range Interpretation Comments MAGNESIUM (test code = 2226) 2.0 MG/DL [id number] 00:00:00 Test Item Value Reference Range Interpretation Comments MAGNESIUM (test code = 2226) 2.0 MG/DL [id number] 00:00:00 Test Item Value Reference Range Interpretation Comments MAGNESIUM (test code = 2226) 2.0 MG/DL [id number] 00:00:00 Test Item Value Reference Range Interpretation Comments TSH, THIRD GENERATION (test code 6.220 UIU/ML = 2821) [id number] 00:00:00 Test Item Value Reference Range Interpretation Comments TSH, THIRD GENERATION (test code 6.220 UIU/ML = 2821) [id number] 00:00:00 Test Item Value Reference Range Interpretation Comments TSH, THIRD GENERATION (test code 6.220 UIU/ML = 2821) RACHEL (ANTI-NUCLEAR AB) WITH REFLEX [id number] 00:00:00 Test Item Value Reference Range Interpretation Comments ANTI-NUCLEAR ANTIBODIES (test code = NEGATIVE 3506) RACHEL (ANTI-NUCLEAR AB) WITH REFLEX [id number] 00:00:00 Test Item Value Reference Range Interpretation Comments ANTI-NUCLEAR ANTIBODIES (test code = NEGATIVE 3506) COMPREHENSIVE METABOLIC [id number] 00:00:00 Test Item Value Reference Range Interpretation Comments GLUCOSE (test code = 2217) 79 MG/DL BUN (test code = 2208) 17 MG/DL CREATININE (test code = 2214) 0.78 MG/DL eGFR AMER. (test code 98 ML/MIN/1.73 = 45209) eGFR NON- AMER. (test 85 ML/MIN/1.73 code = 96918) CALC BUN/CREAT (test code = 22 RATIO [...] code = 2219) 18 U/L COMPREHENSIVE METABOLIC [id number] 00:00:00 Test Item Value Reference Range Interpretation Comments GLUCOSE (test code = 2217) 79 MG/DL BUN (test code = 2208) 17 MG/DL CREATININE (test code = 2214) 0.78 MG/DL eGFR AMER. (test code 98 ML/MIN/1.73 = 84237) eGFR NON- AMER. (test 85 ML/MIN/1.73 code = 35231) CALC BUN/CREAT (test code = 22 RATIO [...] code = 2219) 18 U/L CBC W/AUTO [id number] 00:00:00 Test Item Value Reference Range Interpretation [...] code = 1015) 249 K/UL CBC W/AUTO [id number] 00:00:00 Test Item Value Reference Range Interpretation [...] COUNT (test code = 1015) 249 K/UL [id number] 00:00:00 Test Item Value Reference Range Interpretation Comments LEVETIRACETAM (test code = 24843) 19.7 mcg/mL [id number] 00:00:00 Test Item Value Reference Range Interpretation Comments LAMOTRIGINE (test code = 66418) 6.2 mcg/mL [id number] 00:00:00 Test Item Value Reference Range Interpretation Comments LAMOTRIGINE (test code = 82181) 6.2 mcg/mL [id number] 00:00:00 Test Item Value Reference Range Interpretation Comments LEVETIRACETAM (test code = 66316) 19.7 mcg/mL [id number] 00:00:00 Test Item Value Reference Range Interpretation Comments LEVETIRACETAM (test code = 67339) 19.7 mcg/mL [id number] 00:00:00 Test Item Value Reference Range Interpretation Comments LAMOTRIGINE (test code = 10746) 6.2 mcg/mL [id number] 00:00:00 Test Item Value Reference Range Interpretation Comments LAMOTRIGINE (test code = 39269) 6.2 mcg/mL [id number] 00:00:00 Test Item Value Reference Range Interpretation Comments LEVETIRACETAM (test code = 64580) 19.7 mcg/mL [id number] 00:00:00 Test Item Value Reference Range Interpretation Comments LEVETIRACETAM (test code = 65232) 19.7 mcg/mL [id number] 00:00:00 Test Item Value Reference Range Interpretation Comments LAMOTRIGINE (test code = 21245) 6.2 mcg/mL [id number] 00:00:00 Test Item Value Reference Range Interpretation Comments LAMOTRIGINE (test code = 27467) 6.2 mcg/mL [id number] 00:00:00 Test Item Value Reference Range Interpretation Comments LEVETIRACETAM (test code = 68486) 19.7 mcg/mL CBC W/AUTO [id number] 00:00:00 Test Item Value Reference Range Interpretation [...] code = 1015) 214 K/UL CBC W/AUTO [id number] 00:00:00 Test Item Value Reference Range Interpretation [...] code = 1015) 214 K/UL CBC W/AUTO [id number] 00:00:00 Test Item Value Reference Range Interpretation [...] code = 1015) 214 K/UL COMPREHENSIVE METABOLIC [id number] 00:00:00 Test Item Value Reference Range Interpretation Comments GLUCOSE (test code = 2217) 87 MG/DL BUN (test code = 2208) 15 MG/DL CREATININE (test code = 2214) 0.89 MG/DL eGFR AMER. (test code 84 ML/MIN/1.73 = 69551) eGFR NON- AMER. (test 72 ML/MIN/1.73 code = 30363) CALC BUN/CREAT (test code = 17 RATIO 2235) SODIUM (test code = 2231) 146 MEQ/L POTASSIUM (test code = 2228) 4.4 MEQ/L CHLORIDE (test code = 2215) 104 MEQ/L CARBON DIOXIDE (test code = 32 MEQ/L 2206) CALCIUM (test code = 2209) 9.8 MG/DL [...] code = 2219) 13 U/L COMPREHENSIVE METABOLIC [id number] 00:00:00 Test Item Value Reference Range Interpretation Comments GLUCOSE (test code = 2217) 87 MG/DL BUN (test code = 2208) 15 MG/DL CREATININE (test code = 2214) 0.89 MG/DL eGFR AMER. (test code 84 ML/MIN/1.73 = 62382) eGFR NON- AMER. (test 72 ML/MIN/1.73 code = 66638) CALC BUN/CREAT (test code = 17 RATIO 2235) SODIUM (test code = 2231) 146 MEQ/L POTASSIUM (test code = 2228) 4.4 MEQ/L CHLORIDE (test code = 2215) 104 MEQ/L CARBON DIOXIDE (test code = 32 MEQ/L 220) CALCIUM (test code = 2209) 9.8 MG/DL [...] ALT (test code = 2219) 13 U/L [id number] 00:00:00 Test Item Value Reference Range Interpretation Comments TSH, THIRD GENERATION (test code 0.300 UIU/ML = 2821) [id number] 00:00:00 Test Item Value Reference Range Interpretation Comments TSH, THIRD GENERATION (test code 0.300 UIU/ML = 2821) [id number] 00:00:00 Test Item Value Reference Range Interpretation Comments TSH, THIRD GENERATION (test code 0.300 UIU/ML = 2821) CBC W/AUTO [id number] 00:00:00 Test Item Value Reference Range Interpretation [...] code = 1015) 214 K/UL CBC W/AUTO [id number] 00:00:00 Test Item Value Reference Range Interpretation [...] code = 1015) 214 K/UL CBC W/AUTO [id number] 00:00:00 Test Item Value Reference Range Interpretation [...] code = 1015) 214 K/UL COMPREHENSIVE METABOLIC [id number] 00:00:00 Test Item Value Reference Range Interpretation Comments GLUCOSE (test code = 2217) 87 MG/DL BUN (test code = 2208) 15 MG/DL CREATININE (test code = 2214) 0.89 MG/DL eGFR AMER. (test code 84 ML/MIN/1.73 = 01497) eGFR NON- AMER. (test 72 ML/MIN/1.73 code = 85858) CALC BUN/CREAT (test code = 17 RATIO 2235) SODIUM (test code = 2231) 146 MEQ/L POTASSIUM (test code = 2228) 4.4 MEQ/L CHLORIDE (test code = 2215) 104 MEQ/L CARBON DIOXIDE (test code = 32 MEQ/L 220) CALCIUM (test code = 2209) 9.8 MG/DL [...] code = 2219) 13 U/L COMPREHENSIVE METABOLIC [id number] 00:00:00 Test Item Value Reference Range Interpretation Comments GLUCOSE (test code = 2217) 87 MG/DL BUN (test code = 2208) 15 MG/DL CREATININE (test code = 2214) 0.89 MG/DL eGFR AMER. (test code 84 ML/MIN/1.73 = 07999) eGFR NON- AMER. (test 72 ML/MIN/1.73 code = 27373) CALC BUN/CREAT (test code = 17 RATIO 2235) SODIUM (test code = 2231) 146 MEQ/L POTASSIUM (test code = 2228) 4.4 MEQ/L CHLORIDE (test code = 2215) 104 MEQ/L CARBON DIOXIDE (test code = 32 MEQ/L 2206) CALCIUM (test code = 2209) 9.8 MG/DL PROTEIN, TOTAL (test code = 6.9 G/DL 2229) ALBUMIN (test code = 2201) 4.5 G/DL CALC GLOBULIN (test code = 2.4 G/DL 2240) CALC A/G RATIO (test code = 1.9 RATIO 4) BILIRUBIN, TOTAL (test code = 0.5 MG/DL 2206) ALKALINE PHOSPHATASE (test 101 U/L code = 2204) AST (test code = 2218) 21 U/L ALT (test code = 2219) 13 U/L [id number] 00:00:00 Test Item Value Reference Range Interpretation Comments TSH, THIRD GENERATION (test code 0.300 UIU/ML = 2821) [id number] 00:00:00 Test Item Value Reference Range Interpretation Comments TSH, THIRD GENERATION (test code 0.300 UIU/ML = 2821) [id number] 00:00:00 Test Item Value Reference Range Interpretation Comments TSH, THIRD GENERATION (test code 0.300 UIU/ML = 2821) CBC W/AUTO [id number] 00:00:00 Test Item Value Reference Range Interpretation [...] code = 1015) 214 K/UL CBC W/AUTO [id number] 00:00:00 Test Item Value Reference Range Interpretation [...] code = 1015) 214 K/UL CBC W/AUTO [id number] 00:00:00 Test Item Value Reference Range Interpretation [...] code = 1015) 214 K/UL COMPREHENSIVE METABOLIC [id number] 00:00:00 Test Item Value Reference Range Interpretation Comments GLUCOSE (test code = 2217) 87 MG/DL BUN (test code = 2208) 15 MG/DL CREATININE (test code = 2214) 0.89 MG/DL eGFR AMER. (test code 84 ML/MIN/1.73 = 41501) eGFR NON- AMER. (test 72 ML/MIN/1.73 code = 10968) CALC BUN/CREAT (test code = 17 RATIO 2235) SODIUM (test code = 2231) 146 MEQ/L POTASSIUM (test code = 2228) 4.4 MEQ/L CHLORIDE (test code = 2215) 104 MEQ/L CARBON DIOXIDE (test code = 32 MEQ/L 220) CALCIUM (test code = 2209) 9.8 MG/DL [...] code = 2219) 13 U/L COMPREHENSIVE METABOLIC [id number] 00:00:00 Test Item Value Reference Range Interpretation Comments GLUCOSE (test code = 2217) 87 MG/DL BUN (test code = 2208) 15 MG/DL CREATININE (test code = 2214) 0.89 MG/DL eGFR AMER. (test code 84 ML/MIN/1.73 = 95668) eGFR NON- AMER. (test 72 ML/MIN/1.73 code = 39957) CALC BUN/CREAT (test code = 17 RATIO 2235) SODIUM (test code = 2231) 146 MEQ/L POTASSIUM (test code = 2228) 4.4 MEQ/L CHLORIDE (test code = 2215) 104 MEQ/L CARBON DIOXIDE (test code = 32 MEQ/L 220) CALCIUM (test code = 2209) 9.8 MG/DL [...] ALT (test code = 2219) 13 U/L [id number] 00:00:00 Test Item Value Reference Range Interpretation Comments TSH, THIRD GENERATION (test code 0.300 UIU/ML = 2821) [id number] 00:00:00 Test Item Value Reference Range Interpretation Comments TSH, THIRD GENERATION (test code 0.300 UIU/ML = 2821) [id number] 00:00:00 Test Item Value Reference Range Interpretation Comments TSH, THIRD GENERATION (test code 0.300 UIU/ML = 2821) [id number] 00:00:00 Test Item Value Reference Range Interpretation Comments LEVETIRACETAM (test code = 19563) 36.0 mcg/mL [id number] 00:00:00 Test Item Value Reference Range Interpretation Comments LEVETIRACETAM (test code = 63348) 36.0 mcg/mL [id number] 00:00:00 Test Item Value Reference Range Interpretation Comments LEVETIRACETAM (test code = 55185) 36.0 mcg/mL [id number] 00:00:00 Test Item Value Reference Range Interpretation Comments LEVETIRACETAM (test code = 75469) 36.0 mcg/mL [id number] 00:00:00 Test Item Value Reference Range Interpretation Comments LEVETIRACETAM (test code = 80096) 36.0 mcg/mL [id number] 00:00:00 Test Item Value Reference Range Interpretation Comments LEVETIRACETAM (test code = 73006) 36.0 mcg/mL COMPREHENSIVE METABOLIC [id number] 00:00:00 Test Item Value Reference Range Interpretation Comments GLUCOSE (test code = 2217) 75 MG/DL BUN (test code = 2208) 13 MG/DL CREATININE (test code = 2214) 0.81 MG/DL eGFR AMER. (test code 95 ML/MIN/1.73 = 05647) eGFR NON- AMER. (test 82 ML/MIN/1.73 code = 28875) CALC BUN/CREAT (test code = 16 RATIO 2235) SODIUM (test code = 2231) 143 MEQ/L POTASSIUM (test code = 2228) 3.6 MEQ/L CHLORIDE (test code = 2215) 99 MEQ/L CARBON DIOXIDE (test code = 27 MEQ/L 2205) CALCIUM (test code = 2209) 9.5 MG/DL PROTEIN, TOTAL (test code = 6.9 G/DL 2228) ALBUMIN (test code = 2201) 4.5 G/DL CALC GLOBULIN (test code = 2.4 G/DL 2240) CALC A/G RATIO (test code = 1.9 RATIO 2234) BILIRUBIN, TOTAL (test code = 0.4 MG/DL 2207) ALKALINE PHOSPHATASE (test 106 U/L code = 2204) AST (test code = 2218) 23 U/L ALT (test code = 2219) 16 U/L COMPREHENSIVE METABOLIC [id number] 00:00:00 Test Item Value Reference Range Interpretation Comments GLUCOSE (test code = 2217) 75 MG/DL BUN (test code = 2208) 13 MG/DL CREATININE (test code = 2214) 0.81 MG/DL eGFR AMER. (test code 95 ML/MIN/1.73 = 36905) eGFR NON- AMER. (test 82 ML/MIN/1.73 code = 42845) CALC BUN/CREAT (test code = 16 RATIO 2235) SODIUM (test code = 2231) 143 MEQ/L POTASSIUM (test code = 2228) 3.6 MEQ/L CHLORIDE (test code = 2215) 99 MEQ/L CARBON DIOXIDE (test code = 27 MEQ/L 2205) CALCIUM (test code = 2209) 9.5 MG/DL PROTEIN, TOTAL (test code = 6.9 G/DL 2229) ALBUMIN (test code = 2201) 4.5 G/DL CALC GLOBULIN (test code = 2.4 G/DL 2240) CALC A/G RATIO (test code = 1.9 RATIO 2234) BILIRUBIN, TOTAL (test code = 0.4 MG/DL 2207) ALKALINE PHOSPHATASE (test 106 U/L code = 2204) AST (test code = 2218) 23 U/L ALT (test code = 2219) 16 U/L COMPREHENSIVE METABOLIC [id number] 00:00:00 Test Item Value Reference Range Interpretation Comments GLUCOSE (test code = 2217) 75 MG/DL BUN (test code = 2208) 13 MG/DL CREATININE (test code = 2214) 0.81 MG/DL eGFR AMER. (test code 95 ML/MIN/1.73 = 75475) eGFR NON- AMER. (test 82 ML/MIN/1.73 code = 13461) CALC BUN/CREAT (test code = 16 RATIO [...] code = 2219) 16 U/L COMPREHENSIVE METABOLIC [id number] 00:00:00 Test Item Value Reference Range Interpretation Comments GLUCOSE (test code = 2217) 75 MG/DL BUN (test code = 2208) 13 MG/DL CREATININE (test code = 2214) 0.81 MG/DL eGFR AMER. (test code 95 ML/MIN/1.73 = 20867) eGFR NON- AMER. (test 82 ML/MIN/1.73 code = 20265) CALC BUN/CREAT (test code = 16 RATIO [...] code = 2219) 16 U/L COMPREHENSIVE METABOLIC [id number] 00:00:00 Test Item Value Reference Range Interpretation Comments GLUCOSE (test code = 2217) 75 MG/DL BUN (test code = 2208) 13 MG/DL CREATININE (test code = 2214) 0.81 MG/DL eGFR AMER. (test code 95 ML/MIN/1.73 = 24331) eGFR NON- AMER. (test 82 ML/MIN/1.73 code = 53673) CALC BUN/CREAT (test code = 16 RATIO [...] code = 2219) 16 U/L COMPREHENSIVE METABOLIC [id number] 00:00:00 Test Item Value Reference Range Interpretation Comments GLUCOSE (test code = 2217) 75 MG/DL BUN (test code = 2208) 13 MG/DL CREATININE (test code = 2214) 0.81 MG/DL eGFR AMER. (test code 95 ML/MIN/1.73 = 96769) eGFR NON- AMER. (test 82 ML/MIN/1.73 code = 55922) CALC BUN/CREAT (test code = 16 RATIO 2235) SODIUM (test code = 2231) 143 MEQ/L POTASSIUM (test code = 2228) 3.6 MEQ/L CHLORIDE (test code = 2215) 99 MEQ/L CARBON DIOXIDE (test code = 27 MEQ/L 2206) CALCIUM (test code = 2209) 9.5 MG/DL PROTEIN, TOTAL (test code = 6.9 G/DL 9) ALBUMIN (test code = 2201) 4.5 G/DL [...] Interpretation Comments HEMOGLOBIN A1c (test code = 12030) 4.9 % HEMOGLOBIN A1c [ADDED]2018-09-26 00:00:00 Test Item Value Reference Range Interpretation Comments HEMOGLOBIN A1c (test code = 74290) 4.9 % HEMOGLOBIN A1c [ADDED]2018-09-26 00:00:00 Test Item Value Reference Range Interpretation Comments HEMOGLOBIN A1c (test code = 78874) 4.9 % TSH, THIRD GENERATION [ADDED]2018-09-26 00:00:00 [...] eGFR AMER. (test code 75 ML/MIN/1.73 = 85976) eGFR NON- AMER. (test 65 ML/MIN/1.73 code = 18608) CALC BUN/CREAT (test code = 11 RATIO [...] eGFR AMER. (test code 75 ML/MIN/1.73 = 08779) eGFR NON- AMER. (test 65 ML/MIN/1.73 code = 88768) CALC BUN/CREAT (test code = 11 RATIO 2235) SODIUM (test code = 2231) 148 MEQ/L POTASSIUM (test code = 2228) 4.1 MEQ/L CHLORIDE (test code = 2215) 106 MEQ/L CARBON DIOXIDE (test code = 32 MEQ/L 220) CALCIUM (test code = 2209) 9.6 MG/DL [...] Interpretation Comments HEMOGLOBIN A1c (test code = 51119) 4.9 % HEMOGLOBIN A1c [ADDED]2018-09-26 00:00:00 Test Item Value Reference Range Interpretation Comments HEMOGLOBIN A1c (test code = 99758) 4.9 % HEMOGLOBIN A1c [ADDED]2018-09-26 00:00:00 Test Item Value Reference Range Interpretation Comments HEMOGLOBIN A1c (test code = 41215) 4.9 % TSH, THIRD GENERATION [ADDED]2018-09-26 00:00:00 [...] eGFR AMER. (test code 75 ML/MIN/1.73 = 15497) eGFR NON- AMER. (test 65 ML/MIN/1.73 code = 72183) CALC BUN/CREAT (test code = 11 RATIO 2235) SODIUM (test code = 2231) 148 MEQ/L POTASSIUM (test code = 2228) 4.1 MEQ/L CHLORIDE (test code = 2215) 106 MEQ/L CARBON DIOXIDE (test code = 32 MEQ/L 220) CALCIUM (test code = 2209) 9.6 MG/DL [...] eGFR AMER. (test code 75 ML/MIN/1.73 = 55293) eGFR NON- AMER. (test 65 ML/MIN/1.73 code = 93128) CALC BUN/CREAT (test code = 11 RATIO 2235) SODIUM (test code = 2231) 148 MEQ/L POTASSIUM (test code = 2228) 4.1 MEQ/L CHLORIDE (test code = 2215) 106 MEQ/L CARBON DIOXIDE (test code = 32 MEQ/L 6) CALCIUM (test code = 2209) 9.6 MG/DL [...] Interpretation Comments HEMOGLOBIN A1c (test code = 12348) 4.9 % HEMOGLOBIN A1c [ADDED]2018-09-26 00:00:00 Test Item Value Reference Range Interpretation Comments HEMOGLOBIN A1c (test code = 13046) 4.9 % HEMOGLOBIN A1c [ADDED]2018-09-26 00:00:00 Test Item Value Reference Range Interpretation Comments HEMOGLOBIN A1c (test code = 79824) 4.9 % TSH, THIRD GENERATION [ADDED]2018-09-26 00:00:00 [...] eGFR AMER. (test code 75 ML/MIN/1.73 = 94671) eGFR NON- AMER. (test 65 ML/MIN/1.73 code = 33048) CALC BUN/CREAT (test code = 11 RATIO [...] CALC GLOBULIN (test code = 2.0 G/DL 0) CALC A/G RATIO (test code = 2.3 [...] eGFR AMER. (test code 75 ML/MIN/1.73 = 10945) eGFR NON- AMER. (test 65 ML/MIN/1.73 code = 94889) CALC BUN/CREAT (test code = 11 RATIO 2235) SODIUM (test code = 2231) 148 MEQ/L POTASSIUM (test code = 2228) 4.1 MEQ/L CHLORIDE (test code = 2215) 106 MEQ/L CARBON DIOXIDE (test code = 32 MEQ/L 220) CALCIUM (test code = 2209) 9.6 MG/DL [...] 4.6 G/DL BILIRUBIN, TOTAL (test code = 220) 0.5 MG/DL BILIRUBIN, DIRECT (test code = 0.1 MG/DL 2021) ALKALINE PHOSPHATASE (test code = 107 U/L 2203) AST (test code = 2218) 23 U/L ALT (test code = 2219) 14 U/L COMPREHENSIVE METABOLIC [id number] 00:00:00 Test Item Value Reference Range Interpretation Comments GLUCOSE (test code = 2217) 81 MG/DL BUN (test code = 2208) 18 MG/DL CREATININE (test code = 2214) 0.86 MG/DL eGFR AMER. (test code 88 ML/MIN/1.73 = 26871) eGFR NON- AMER. (test 76 ML/MIN/1.73 code = 95705) CALC BUN/CREAT (test code = 21 RATIO [...] code = 2219) 14 U/L CBC W/AUTO [id number] 00:00:00 Test Item Value Reference Range Interpretation [...] code = 1015) 183 K/UL CBC W/AUTO [id number] 00:00:00 Test Item Value Reference Range Interpretation [...] code = 1015) 183 K/UL CBC W/AUTO [id number] 00:00:00 Test Item Value Reference Range Interpretation [...] COUNT (test code = 1015) 183 K/UL [id number] 00:00:00 Test Item Value Reference Range Interpretation Comments TSH, THIRD GENERATION (test code 2.510 UIU/ML = 2821) [id number] 00:00:00 Test Item Value Reference Range Interpretation Comments TSH, THIRD GENERATION (test code 2.510 UIU/ML = 2821) [id number] 00:00:00 Test Item Value Reference Range Interpretation Comments TSH, THIRD GENERATION (test code 2.510 UIU/ML = 2821) COMPREHENSIVE METABOLIC [id number] 00:00:00 Test Item Value Reference Range Interpretation Comments GLUCOSE (test code = 2217) 81 MG/DL BUN (test code = 2208) 18 MG/DL CREATININE (test code = 2214) 0.86 MG/DL eGFR AMER. (test code 88 ML/MIN/1.73 = 20001) eGFR NON- AMER. (test 76 ML/MIN/1.73 code = 67578) CALC BUN/CREAT (test code = 21 RATIO [...] code = 2219) 14 U/L COMPREHENSIVE METABOLIC [id number] 00:00:00 Test Item Value Reference Range Interpretation Comments GLUCOSE (test code = 2217) 81 MG/DL BUN (test code = 2208) 18 MG/DL CREATININE (test code = 2214) 0.86 MG/DL eGFR AMER. (test code 88 ML/MIN/1.73 = 97452) eGFR NON- AMER. (test 76 ML/MIN/1.73 code = 37103) CALC BUN/CREAT (test code = 21 RATIO 2235) SODIUM (test code = 2231) 146 MEQ/L POTASSIUM (test code = 2228) 3.8 MEQ/L CHLORIDE (test code = 2215) 105 MEQ/L CARBON DIOXIDE (test code = 30 MEQ/L 2205) CALCIUM (test code = 2209) 9.0 MG/DL PROTEIN, TOTAL (test code = 6.6 G/DL 222) ALBUMIN (test code = 2201) 4.4 G/DL CALC GLOBULIN (test code = 2.2 G/DL 2240) CALC A/G RATIO (test code = 2.0 RATIO 2234) BILIRUBIN, TOTAL (test code = 0.3 MG/DL 220) ALKALINE PHOSPHATASE (test 91 U/L code = 2204) AST (test code = 2218) 19 U/L ALT (test code = 2219) 14 U/L CBC W/AUTO [id number] 00:00:00 Test Item Value Reference Range Interpretation [...] code = 1015) 183 K/UL CBC W/AUTO [id number] 00:00:00 Test Item Value Reference Range Interpretation [...] code = 1015) 183 K/UL CBC W/AUTO [id number] 00:00:00 Test Item Value Reference Range Interpretation [...] COUNT (test code = 1015) 183 K/UL [id number] 00:00:00 Test Item Value Reference Range Interpretation Comments TSH, THIRD GENERATION (test code 2.510 UIU/ML = 2821) [id number] 00:00:00 Test Item Value Reference Range Interpretation Comments TSH, THIRD GENERATION (test code 2.510 UIU/ML = 2821) [id number] 00:00:00 Test Item Value Reference Range Interpretation Comments TSH, THIRD GENERATION (test code 2.510 UIU/ML = 2821) COMPREHENSIVE METABOLIC [id number] 00:00:00 Test Item Value Reference Range Interpretation Comments GLUCOSE (test code = 2217) 81 MG/DL BUN (test code = 2208) 18 MG/DL CREATININE (test code = 2214) 0.86 MG/DL eGFR AMER. (test code 88 ML/MIN/1.73 = 83955) eGFR NON- AMER. (test 76 ML/MIN/1.73 code = 15311) CALC BUN/CREAT (test code = 21 RATIO 2235) SODIUM (test code = 2231) 146 MEQ/L POTASSIUM (test code = 2228) 3.8 MEQ/L CHLORIDE (test code = 2215) 105 MEQ/L CARBON DIOXIDE (test code = 30 MEQ/L 2206) CALCIUM (test code = 2209) 9.0 MG/DL PROTEIN, TOTAL (test code = 6.6 G/DL 2229) ALBUMIN (test code = 2201) 4.4 G/DL CALC GLOBULIN (test code = 2.2 G/DL 2240) CALC A/G RATIO (test code = 2.0 RATIO 2234) BILIRUBIN, TOTAL (test code = 0.3 MG/DL 2206) ALKALINE PHOSPHATASE (test 91 U/L code = 2204) AST (test code = 2218) 19 U/L ALT (test code = 2219) 14 U/L COMPREHENSIVE METABOLIC [id number] 00:00:00 Test Item Value Reference Range Interpretation Comments GLUCOSE (test code = 2217) 81 MG/DL BUN (test code = 2208) 18 MG/DL CREATININE (test code = 2214) 0.86 MG/DL eGFR AMER. (test code 88 ML/MIN/1.73 = 10028) eGFR NON- AMER. (test 76 ML/MIN/1.73 code = 77264) CALC BUN/CREAT (test code = 21 RATIO 2235) SODIUM (test code = 2231) 146 MEQ/L POTASSIUM (test code = 2228) 3.8 MEQ/L CHLORIDE (test code = 2215) 105 MEQ/L CARBON DIOXIDE (test code = 30 MEQ/L 2205) CALCIUM (test code = 2209) 9.0 MG/DL PROTEIN, TOTAL (test code = 6.6 G/DL 2229) ALBUMIN (test code = 2201) 4.4 G/DL CALC GLOBULIN (test code = 2.2 G/DL 2240) CALC A/G RATIO (test code = 2.0 RATIO 2234) BILIRUBIN, TOTAL (test code = 0.3 MG/DL 220) ALKALINE PHOSPHATASE (test 91 U/L code = 2204) AST (test code = 2218) 19 U/L ALT (test code = 2219) 14 U/L CBC W/AUTO [id number] 00:00:00 Test Item Value Reference Range Interpretation [...] code = 1015) 183 K/UL CBC W/AUTO [id number] 00:00:00 Test Item Value Reference Range Interpretation [...] code = 1015) 183 K/UL CBC W/AUTO [id number] 00:00:00 Test Item Value Reference Range Interpretation [...] COUNT (test code = 1015) 183 K/UL [id number] 00:00:00 Test Item Value Reference Range Interpretation Comments TSH, THIRD GENERATION (test code 2.510 UIU/ML = 2821) [id number] 00:00:00 Test Item Value Reference Range Interpretation Comments TSH, THIRD GENERATION (test code 2.510 UIU/ML = 2821) [id number] 00:00:00 Test Item Value Reference Range Interpretation Comments TSH, THIRD GENERATION (test code 2.510 UIU/ML = 2821) COMPREHENSIVE METABOLIC [id number] 00:00:00 Test Item Value Reference Range Interpretation Comments GLUCOSE (test code = 2217) 81 MG/DL BUN (test code = 2208) 18 MG/DL CREATININE (test code = 2214) 0.86 MG/DL eGFR AMER. (test code 88 ML/MIN/1.73 = 79787) eGFR NON- AMER. (test 76 ML/MIN/1.73 code = 16572) CALC BUN/CREAT (test code = 21 RATIO [...]
[2021-12-04] MEDS ORDERED: ACETAMINOPHEN 500 MG TAB ONE (21:22)
--- NOTE | 2021-12-04 21:25 | RAD REPORT ---
EXAM DESCRIPTION: RAD - Ankle Left 3 View - 12/04/2021 8:59 pm CLINICAL HISTORY: Pain, twisting injury 2 weeks earlier COMPARISON: None. FINDINGS: No fracture, dislocation or periosteal reaction. No joint effusion seen. No joint space na rrowing. Moderate-sized plantar and Achilles spurs are present. There is additional soft tissue calci fications the plantar soft tissues that are likely within the plantar tendon. Lateral soft tissue swelling is present. IMPRESSION: Soft tissue swelling with no left ankle fracture.
--- NOTE | 2021-12-04 21:39 | EDPHYS ---
Physician Documentation [facility] Name: Pati Romero Age: 56 yrs Sex: Female : 1965 Arrival Date: 12/04/2021 Time: 19:39 Bed DIS1 Private MD: CHUY Physician Fabiola De Jesus HPI: 12/04 20:05 This 56 yrs old Female presents to ER via Ambulatory with complaints of Ankle cp Injury. 20:05 The patient presents with an injury, pain, that is acute, swelling, tenderness. The cp complaints affect the left ankle. Onset: The symptoms/episode began/occurred 3 week(s) ago. Context: resulted from the patient falling, The mechanism of injury involved inversion of the affected ankle. The patient can fully bear weight on the affected extremity. the patient is able to ambulate, with mild difficulty. Associated signs and symptoms: The patient has no apparent associated signs or symptoms. Historical: - Allergies: 19:53 Demerol; hb - Home Meds: 19:56 Abilify 2 mg Oral tab nightly [Active]; famotidine 20 mg Oral tab 1 tab 2 times per day as6 [Active]; indomethacin 50 mg Oral cap QID PRN [Active]; Keppra Oral [Active]; Lamictal 200 mg Oral tab [Active]; levothyroxine 150 mcg tab 1 tab once daily [Active]; Norvasc Oral [Active]; lisinopril-hydrochlorothiazide 20-12.5 mg Oral tab 1 tab once daily [Active]; Paxil 40 mg Oral tab once daily [Active]; Norvasc 10 mg Oral tab 1 tab once daily [Active]; Wellbutrin XL 150 mg Oral Tb24 1 tab once daily [Active]; - PMHx: 19:56 brain aneurysm with metal; pt was 26 yrs old; Depression; Hypertension; Hypothyroidism; as6 Seizures; - PSHx: 19:56 Appendectomy; hysterectomy; as6 - Immunization history:: Client reports receiving the 2nd dose of the Covid vaccine, moderna. - Social history:: Smoking status: Patient denies any tobacco usage or history of. ROS: 20:07 Neck: Negative for pain with movement, pain at rest. cp 20:07 Back: Negative for pain at rest, pain with movement. 20:07 MS/extremity: Positive for pain, swelling, tenderness, of the left lateral ankle, Negative for decreased range of motion, paresthesias. 20:07 Neuro: Negative for altered mental status, headache, weakness. 20:07 All other systems are negative. Exam: 20:08 Head/Face: Normocephalic, atraumatic. cp 20:08 Constitutional: The patient appears in no acute distress, alert, awake, non-toxic, well developed, well nourished. 20:08 Neck: ROM/movement: is normal, is supple, without pain, no range of motions limitations. 20:08 Chest/axilla: Inspection: normal. 20:08 Cardiovascular: Rate: normal, Pulses: Pulses are 2+ in left dorsalis pedis artery. 20:08 Respiratory: the patient does not display signs of respiratory distress, Respirations: normal, no use of accessory muscles, no retractions, labored breathing, is not present. 20:08 Musculoskeletal/extremity: Extremities: noted in the left lateral ankle: pain, swelling, tenderness, There is no evidence of decreased ROM, No pain to palpation noted proximal left fibula and/or base of left fifth metatarsal. Vital Signs: 19:52 BP 135 / 95; Pulse 60; Resp 16; Temp 98.2; Pulse Ox 99% on R/A; Weight 69.4 kg; Height hb 5 ft. 3 in. (160.02 cm); Pain 7/10; 19:52 Body Mass Index 27.10 (69.40 kg, 160.02 cm) hb Procedures: 21:50 Splinting: Splint applied to left ankle using walking boot. applied by nurse. Examined cp by me, post splint application: neurovascular intact, Patient tolerated well. MDM: 20:02 Patient medically screened. cp 21:38 Data reviewed: vital signs, nurses notes, radiologic studies, plain films. cp 21:38 Differential diagnosis: fracture, sprain, cellulitis. Test interpretation: by ED cp physician or midlevel provider: plain radiologic studies. Counseling: I had a detailed discussion with the patient and/or guardian regarding: the historical points, exam findings, and any diagnostic results supporting the discharge/admit diagnosis, radiology results. Response to treatment: the patient's symptoms have mildly improved after treatment, and as a result, I will discharge patient. 12/04 20:02 Order name: XRAY Ankle LEFT 3 view; Complete Time: 21:37 cp 12/04 21:37 Interpretation: Report reviewed. cp 12/04 21:05 Order name: Michel wrap-joint; Complete Time: 21:16 cp 12/04 21:40 Order name: Walking boot; Complete Time: 22:02 cp Administered Medications: 21:13 Drug: Tylenol 1000 mg Route: PO; as6 22:06 Follow up: Response: No adverse reaction as6 Disposition: 12/05 02:04 STAFF ATTESTATION STATEMENT: I was immediately available onsite in the emergency sd2 department for consultation in the care of this patient. I did not see or examine this patient. Fabiola De Jesus MD. Disposition Summary: 12/04/21 21:38 Discharge Ordered Location: Home cp Problem: new cp Symptoms: have improved cp Condition: Stable cp Diagnosis - Sprain of ankle - left cp Followup: cp - With: Shree Adamson MD - When: 2 - 3 days - Reason: Worsening of condition Discharge Instructions: - Discharge Summary Sheet cp - Ankle Sprain cp - RICE Therapy for Routine Care of Injuries cp Forms: - Medication Reconciliation Form cp - Thank You Letter cp - Antibiotic Education cp - Prescription Opioid Use cp Signatures: Dispatcher [employer] EDMS Charly Hogan PA PA cp Dee Rao RN RN hb Slawson, Ashby, RN RN as6 Fabiola De Jesus MD MD sd2 Corrections: (The following items were deleted from the chart) 12/04 21:19 21:05 Splint - Ankle: Aircast ordered. cp as6 12/05 21:17 12/04 22:00 Splinting: Splint applied to left ankle using walking boot. applied by cp nurse. Examined by me, post splint application: neurovascular intact, Patient tolerated well, cp
--- NOTE | 2021-12-04 21:39 | ER ---
Nurse's Notes [facility] Name: Pati Romero Age: 56 yrs Sex: Female : 1965 Arrival Date: 12/04/2021 Time: 19:39 Bed DIS1 Private MD: Diagnosis: Sprain of ankle-left Presentation: 12/04 19:52 Chief complaint: Rolled left ankle 2 weeks ago, c/o pain 7/10. Coronavirus screen: At this time, the client does not indicate any symptoms associated with coronavirus-19. Ebola Screen: No symptoms or risks identified at this time. Onset of symptoms was November 23, 2021. 19:52 Method Of Arrival: Ambulatory hb 19:52 Acuity: SUSAN 4 hb 19:56 Initial Sepsis Screen: Does the patient meet any 2 criteria? No. Patient's initial as6 sepsis screen is negative. Does the patient have a suspected source of infection? No. Patient's initial sepsis screen is negative. Risk Assessment: Do you want to hurt yourself or someone else? Patient reports no desire to harm self or others. Historical: - Allergies: 19:53 Demerol; hb - Home Meds: 19:56 Abilify 2 mg Oral tab nightly [Active]; famotidine 20 mg Oral tab 1 tab 2 times per day as6 [Active]; indomethacin 50 mg Oral cap QID PRN [Active]; Keppra Oral [Active]; Lamictal 200 mg Oral tab [Active]; levothyroxine 150 mcg tab 1 tab once daily [Active]; Norvasc Oral [Active]; lisinopril-hydrochlorothiazide 20-12.5 mg Oral tab 1 tab once daily [Active]; Paxil 40 mg Oral tab once daily [Active]; Norvasc 10 mg Oral tab 1 tab once daily [Active]; Wellbutrin XL 150 mg Oral Tb24 1 tab once daily [Active]; - PMHx: 19:56 brain aneurysm with metal; pt was 26 yrs old; Depression; Hypertension; Hypothyroidism; as6 Seizures; - PSHx: 19:56 Appendectomy; hysterectomy; as6 - Immunization history:: Client reports receiving the 2nd dose of the Covid vaccine, moderna. - Social history:: Smoking status: Patient denies any tobacco usage or history of. Screenin:58 Abuse screen: Denies threats or abuse. Denies injuries from another. Nutritional as6 screening: No deficits noted. Tuberculosis screening: No symptoms or risk factors identified. Fall Risk None identified. Assessment: 19:58 General: Appears in no apparent distress. Behavior is calm, cooperative. Pain: as6 Complains of pain in left lateral ankle, left Achilles, left medial ankle and anterior aspect of left ankle Quality of pain is described as tender. Neuro: Level of Consciousness is awake, alert. Respiratory: Respiratory effort is even, unlabored. Musculoskeletal: Swelling present in left lateral ankle, left Achilles, left medial ankle and anterior aspect of left ankle. Vital Signs: 19:52 BP 135 / 95; Pulse 60; Resp 16; Temp 98.2; Pulse Ox 99% on R/A; Weight 69.4 kg; Height hb 5 ft. 3 in. (160.02 cm); Pain 7/10; 19:52 Body Mass Index 27.10 (69.40 kg, 160.02 cm) hb ED Course: 19:39 Patient arrived in ED. ag3 19:53 Triage completed. hb 19:53 Arm band placed on. hb 19:54 Charly Hogan PA is PHCP. cp 19:54 Fabiola De Jesus MD is Attending Physician. cp 19:56 Cyrus Groves, JAE is Primary Nurse. as6 19:58 Patient has correct armband on for positive identification. as6 21:01 XRAY Ankle LEFT 3 view In Process Unspecified. EDMS 21:37 Shree Adamson MD is Referral Physician. cp 21:55 Michel wrap to left ankle. as6 22:02 walking boot applied. as6 22:05 No provider procedures requiring assistance completed. Patient did not have IV access as6 during this emergency room visit. Administered Medications: 21:13 Drug: Tylenol 1000 mg Route: PO; as6 22:06 Follow up: Response: No adverse reaction as6 Medication: 19:59 VIS not applicable for this client. as6 Outcome: 21:38 Discharge ordered by . cp 22:05 Discharged to home ambulatory. as6 22:05 Condition: stable 22:05 Discharge instructions given to patient, Instructed on discharge instructions, follow up and referral plans. Demonstrated understanding of instructions, follow-up care. 22:06 Patient left the ED. as6 Signatures: Dispatcher [employer] Charly Ku PA PA cp Baxter, Heather, RN RN Vivian Seals ag3 Cyrus Groves, RN RN as6
[2021-12-06 20:45] VITALS: BP 135/95; TEMP 98.2; O2SAT 99
== END 2021-12-04 22:06 | disposition home or self-care (01) ==
LOC: ER 19:35
DX: S93.402A Sprain of unspecified ligament of left ankle, initial encounter (principal); Z88.5 Allergy status to narcotic agent
CPT/HCPCS: 99283

== ENCOUNTER 2022-03-13 17:36 | Emergency (ER) | payer OTHER ==
--- OUTSIDE RECORDS SUMMARY | 2022-03-13 17:57 | XMS REPORT | Continuity of Care Document ---
:1965 Author Organization [facility] t Address [address] [place] [address] Care Team Providers Name Role Phone Sachin Daugherty Primary Care Physician Markos Mackay Attending Clinician Ting Mendoza MA Attending Clinician Unavailable DELORES RODRIGUES Attending Clinician Unavailable MARKOS MACKAY Attending Clinician Unavailable Doctor Unassigned, [place] Attending Clinician Unavailable Nika Vu RN Attending Clinician Unavailable DAISY, SENDMELISSA K.H. Attending Clinician Unavailable Daisy VELASCO, Sendmelissa K.H. 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 (disorder) (disorder) Active Problem 02/03/2022 [facility] Essential Essential Problem Active 2022-02-03 Memoria tremor tremor 13:15:57 l (disorder) (disorder) He rmann Active Problem 02/03/2022 [facility] History of History Problem Active 2022-02-03 Memoria - of - 13:15:57 l subarachno subarachno He rmann id id hemorrhage hemorrhage (context-d (context-d ependent ependent category) category) Active Problem 02/03/2022 [facility] Hypertensi Hypertens Problem Active 2022-02-03 Memoria ve laurita 13:15:57 l disorder, disorder, Herm clarice systemic systemic arterial arterial (disorder) (disorder) Active Problem 02/03/2022 [facility] Hypothyroi Hypothyro Problem Active 2022-02-03 Memoria dism idism 13:15:57 l (disorder) (disorder) He rmann Active Problem 02/03/2022 [facility] Tremor Tremor Problem Active 2022-02-03 Jose Daniel irasema (finding) (finding) 13:15:57 l Active [place] Problem 02/03/2022 [facility] Vertigo Vertigo Problem Active 2022-02-03 Me moria (finding) (finding) 13:15:57 l Active [place] Problem 02/03/2022 [facility] 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 13:15:57 l s s [place] (disorder) (disorder) Active Problem 02/03/2022 [facility] Foot-drop Foot-drop Problem Active 2022-02-03 Memoria (finding) (finding) 13:15:57 l Active [place] Problem 02/03/2022 [facility] Carpal Carpal Problem Active 2022-02-03 Jose Daniel irasema tunnel tunnel 13:15:57 l syndrome syndrome [place] n (disorder) (disorder) Active Problem 02/03/2022 [facility] Neuropathy Neuropath Problem Active 2022-02-03 Memoria of lower y of lower 13:15:57 l limb limb [place] (disorder) (disorder) Active Problem 02/03/2022 [facility] No known No known Disease Unive rs active active ity of problems problems [facility] Allergies, Adverse Reactions, Alerts Allergy Allergy Status [...] vers NE (PF) 3-30 ity of 00:00: [place] 00 [facility] Demerol Demerol Active Erika Newman NO KNOWN Drug Active Univers ALLERGIE Class ity of S [facility] Social History Social Habit Start Date Stop Date Quantity Comments Source Exposure to Not sure [place] of SARS-CoV-2 [facility] (event) Branch Social History 2022-01-31 2022-01-31 Christine morfin 15:14:25 15:14:25 Alcohol intake 2019-09-19 2019-09-19 Ex-drinker [place] of 00:00:00 00:00:00 (finding) [facility] Tobacco use and 2019-09-19 2019-09-19 Never used Universit y of exposure 00:00:00 00:00:00 [facility] Smoking Status Start Date Stop Date Source Tobacco smoking status [facility] [place] Medications Ordered Filled Start Stop Current Ordering Indication Dosage Frequency Signature Comments Components Source Medication Medication Date Date Medication? Clinician (SIG) Name Name meclizine Yes 12.5 mg = Mem oria 12.5 mg 9-15 1 tab, PO, l oral tablet 16:55: BID, X 14 H ermann day, # 28 tab, 1 Refill(s), Pharmacy: [facility] Pharmacy, 154.94, cm, 11/24/21 11:34:00 CDT, Height, 69.091, kg, 11/24/21 11:34:00 CDT, Weight meclizine 2-0 Yes 12.5 mg = Mem oria 12.5 mg 9-15 1 tab, PO, l oral tablet 16:55: BID, X 14 H ermann 00 day, # 28 tab, 1 Refill(s), Pharmacy: [facility] Pharmacy, 154.94, cm, 11/24/21 11:34:00 CDT, Height, 69.091, kg, 11/24/21 11:34:00 CDT, Weight meclizine 2-0 Yes 12.5 mg = Mem oria 12.5 mg 9-15 1 tab, PO, l oral tablet 16:55: BID, X 14 H ermann day, # 28 tab, 1 Refill(s), Pharmacy: [facility] Pharmacy, 154.94, cm, 11/24/21 11:34:00 CDT, Height, 69.091, kg, 11/24/21 11:34:00 CDT, Weight Take 1.5 2022-0 No tablets by 11-15 mouth 00:00: nightly 00 Take 1.5 2022-0 No tablets by 11-15 mouth 00:00: nightly 00 Take 1.5 2022-0 No tablets by 11-15 mouth 00:00: nightly 00 Take 1.5 2022-0 No tablets by 11-15 mouth 00:00: nightly 00 Take 1.5 2022-0 No tablets by - mouth 00:00: nightly 00 Take 1 2022-0 No tablet by 8-24 mouth daily 00:00: 00 Take 1 2022-0 No tablet by 8-24 mouth daily 00:00: 00 Take 1 2022-0 No tablet by 8-24 mouth daily 00:00: 00 Take 1 2022-0 No tablet by 8-24 mouth daily 00:00: 00 Take 1 2022-0 No tablet by 8-24 mouth daily 00:00: 00 Take 1 2022-0 No tablet by 8-24 mouth daily 00:00: 00 &lt 2022-0 No [...] Dose 2022-0 No Unknown 8-05 00:00: 00 primidone 2022-0 No 1mg 50 mg 8- tablet 00:00: 00 &lt 2022-0 No 500 8- 00:00: 00 Take 1 2022-0 No tablet by 8- mouth daily 00:00: 00 Take 1 2022-0 No capsule by 8-02 mouth at 00:00: bedtime 00 &lt 2022-0 No 20 8- 00:00: 00 Dose 2022-0 No Unknown 8- 00:00: 00 primidone 2022-0 No 1mg 50 [...] No 500 10-11 00:00: 00 Take 1 2-0 No tablet by 8 mouth daily 00:00: 00 Take 1 2-0 No capsule by 8 mouth at 00:00: bedtime 00 &lt 2022-0 No 20 10-11 00:00: 00 Dose 2022-0 No Unknown 10-11 00:00: 00 primidone 2022-0 No 1mg 50 mg 8- tablet 00:00: 00 &lt 2022-0 No 500 10-11 00:00: 00 Take 1 2-0 No tablet by 8 mouth daily 00:00: 00 Take 1 2-0 No capsule by 10-11 mouth at 00:00: bedtime 00 &lt 2022-0 No 20 10-11 00:00: 00 Dose 2022-0 No Unknown 10-11 00:00: 00 primidone 2022-0 No 1mg 50 mg 8- tablet 00:00: 00 &lt 2022-0 No 500 10-11 00:00: 00 Take 1 2-0 No tablet by 10-11 mouth daily 00:00: 00 Take 1 2-0 No capsule by 10-11 mouth at 00:00: bedtime 00 &lt 2022-0 No 20 10-11 00:00: 00 Dose 2022-0 No Unknown 10-11 00:00: 00 primidone 2022-0 No 1mg 50 mg 8- tablet 00:00: 00 &lt 2022-0 No 500 10-11 00:00: 00 Take 1 2-0 No tablet by 8- mouth daily 00:00: 00 Take 1 2-0 No capsule by 10-11 mouth at 00:00: bedtime 00 &lt 2022-0 No 20 10-11 00:00: 00 Dose 2022-0 No Unknown 10-11 00:00: 00 Take 1 2-0 No tablet by 10-07 mouth daily 00:00: 00 &lt 2022-0 No 10-07 00:00: 00 Dose 2022-0 No Unknown 10-07 00:00: 00 Take 1.5 2-0 No tablets by 10-07 mouth 00:00: nightly 00 Take 1 2-0 No tablet by 10-07 mouth daily 00:00: 00 &lt 2022-0 No 10-07 00:00: 00 Dose 2022-0 No Unknown 10-07 00:00: 00 Take 1.5 2-0 No tablets by 7 mouth 00:00: nightly 00 Take 1 2-0 No tablet by 10-07 mouth daily 00:00: 00 &lt 2022-0 No 10-07 00:00: 00 Dose 2022-0 No Unknown 10-07 00:00: 00 Take 1.5 2-0 No tablets by 10-07 mouth 00:00: nightly 00 Take 1 2-0 No tablet by 10-07 mouth daily 00:00: 00 &lt 2022-0 No 10-07 00:00: 00 Dose 2022-0 No Unknown 10-07 00:00: 00 Take 1.5 2-0 No tablets by 10-07 mouth 00:00: nightly 00 Take 1 2-0 No tablet by 10-07 mouth daily 00:00: 00 &lt 2022-0 No 10-07 00:00: 00 Dose 2022-0 No Unknown 10-07 00:00: 00 Take 1.5 2-0 No tablets by 10-07 mouth 00:00: nightly 00 Take 1 2-0 No tablet by 10-07 mouth daily 00:00: 00 &lt 2022-0 No 10-07 00:00: 00 Dose 2022-0 No Unknown 10-07 00:00: 00 Take 1.5 2-0 No tablets by 7 mouth 00:00: nightly 00 Dose 2022-0 No Unknown 09-21 00:00: 00 Dose 2022-0 No 20 Unknown 09-21 00:00: 00 &lt 2022-0 No 09-21 00:00: 00 Dose 2022-0 No Unknown 7-13 [...] Keppra 500 2022-0 No 2mg mg tablet 5- 00:00: 00 levothyroxi 2022-0 No 1mcg ne [...] Keppra 500 2-0 No 2mg mg tablet 5 00:00: 00 levothyroxi 2022-0 No 1mcg ne 137 mcg 5-28 tablet 00:00: 00 prazosin 1 2-0 No 1mg mg capsule 5- 00:00: 00 gabapentin 2022-0 No 1mg 300 [...] 10 mg 5-28 tablet 00:00: 00 paroxetine 2-0 No 15mg 40 mg 5-28 tablet 00:00: 00 lisinopril 2-0 No 1mg 20 5-28 mg-hydrochl 00:00: orothiazide 00 12.5 mg tablet famotidine 2021-0 No 1mg 20 mg 5-28 tablet 00:00: 00 lamotrigine 2-0 No 1mg 200 mg 5-28 tablet 00:00: 00 lamotrigine 2-0 No 1mg 100 mg 5-28 tablet 00:00: 00 Keppra 500 2-0 No 2mg mg tablet 08-06 00:00: 00 levothyroxi 2021-0 No 1mcg ne 137 mcg 5-28 tablet 00:00: 00 prazosin 1 2021-0 No 1mg mg capsule 08-06 00:00: 00 gabapentin 2-0 No 1mg 300 mg 5-28 capsule 00:00: 00 primidone 2021-0 Yes 50 mg = 1 Mem oria 50 mg oral 4-20 tab, PO, l tablet 20:38: Bedtime, # Evonne nn 00 90 tab, 1 Refill(s), Pharmacy: [facility], 157.48, cm, 01/27/21 9:27:00 [employer], Height, 95.455, kg, 01/27/21 9:27:00 [employer], Weight primidone 2021-0 Yes 50 mg = 1 Mem oria 50 mg oral 4-20 tab, PO, l tablet 20:38: Bedtime, # Evonne nn 00 90 tab, 1 Refill(s), [facility]acy: [facility], 157.48, cm, 01/27/21 9:27:00 [employer], Height, 95.455, kg, 01/27/21 9:27:00 [employer], Weight primidone 2021-0 Yes 50 mg = 1 Mem oria 50 mg oral 4-20 tab, PO, l tablet 20:38: Bedtime, # Evonne nn 00 90 tab, 1 Refill(s), [facility]: [facility], 157.48, cm, 01/27/21 9:27:00 [employer], Height, 95.455, kg, 01/27/21 9:27:00 [employer], Weight Dose 2022-0 No Unknown 4-20 00:00: [...] 2022-0 No Unknown 4-20 00:00: 00 triamcinolo 2022-0 No 1% ne 2-16 acetonide [...] No 1mg mg capsule 2- 00:00: 00 famotidine 2022-0 No 1mg 20 mg 2-09 tablet 00:00: 00 lisinopril 2022-0 No 1mg 20 2-09 mg-hydrochl 00:00: orothiazide 00 12.5 mg tablet amlodipine 2022-0 No 1mg 10 mg 2-09 tablet 00:00: 00 paroxetine 2022-0 No 15mg 40 mg 2-09 tablet 00:00: 00 Keppra 500 2022-0 No 2mg mg tablet 2 00:00: 00 lamotrigine 2022-0 No 1mg 100 [...] prazosin 1 2-0 No 1mg mg capsule 03-24 00:00: 00 paroxetine 2022-0 No 15mg 40 mg 1-13 tablet 00:00: 00 prazosin 1 2022-0 No 1mg mg capsule 03-24 00:00: 00 paroxetine 2022-0 No 15mg 40 mg 1-13 tablet 00:00: 00 prazosin 1 2022-0 No 1mg mg capsule 03-24 00:00: 00 paroxetine 2022-0 No 15mg 40 mg 1-13 tablet 00:00: 00 prazosin 1 2-0 No 1mg mg capsule 03-24 00:00: 00 paroxetine 2022-0 No 15mg 40 mg 1-13 tablet 00:00: 00 prazosin 1 2-0 No 1mg mg capsule 03-24 00:00: 00 paroxetine 2022-0 No 15mg 40 mg 1-13 tablet 00:00: 00 prazosin 1 2-0 No 1mg mg capsule 03-24 00:00: 00 amlodipine 2022-0 No 1mg 10 mg 1-04 tablet 00:00: 00 lisinopril 2022-0 No 1mg 20 1-04 mg-hydrochl 00:00: orothiazide 00 12.5 mg tablet famotidine 2022-0 No 1mg 20 mg 1-04 tablet 00:00: 00 Keppra 500 2022-0 No 2mg mg tablet 03-15 00:00: 00 levothyroxi 2022-0 No 1mcg ne [...] tablet amlodipine 2022-0 No 1mg 10 mg 1-04 tablet 00:00: 00 lisinopril 2022-0 No 1mg 20 1-04 mg-hydrochl 00:00: orothiazide 00 12.5 mg tablet famotidine 2022-0 No 1mg 20 mg 1-04 tablet 00:00: 00 Keppra 500 2022-0 No 2mg mg tablet 03-15 00:00: 00 levothyroxi 2022-0 No 1mcg ne 137 mcg 1-04 tablet 00:00: 00 famotidine 2022-0 No 1mg 20 mg 1-04 tablet 00:00: 00 gabapentin 2022-0 No 1mg 300 mg 1-04 capsule 00:00: 00 Keppra 500 2022-0 No 2mg mg tablet 03-15 00:00: 00 levothyroxi 2022-0 No 1mcg ne 137 mcg 1-04 tablet 00:00: 00 gabapentin 2022-0 No 1mg 300 mg 1-04 capsule 00:00: 00 amlodipine 2022-0 No 1mg 10 mg 1-04 tablet 00:00: 00 lisinopril 2022-0 No 1mg 20 1-04 mg-hydrochl 00:00: orothiazide 00 12.5 mg tablet famotidine 2022-0 No 1mg 20 mg 1-04 tablet 00:00: 00 Keppra 500 2022-0 No 2mg mg tablet 03-15 00:00: 00 levothyroxi 2022-0 No 1mcg ne [...] 2mg mg tablet -04 00:00: 00 levothyroxi 2021-0 No 1mcg ne 137 mcg 1-04 tablet 00:00: 00 gabapentin 2-0 No 1mg 300 mg 1-04 capsule 00:00: [...] 1mg mg capsule 2-16 00:00: 00 propranolol 2020-1 No 10 mg = 1 M emoria 10 mg oral 1-29 tab, PO, l tablet 21:30: BID, # 60 [place] n 00 tab, 3 Refill(s), Pharmacy: [facility], 157.48, cm, 01/27/21 9:27:00 [employer], Height, 95.455, kg, 01/27/21 9:27:00 [employer], Weight propranolol 2020-03 No 10 mg = 1 M emoria 10 mg oral 1-29 tab, PO, l tablet 21:30: BID, # 60 [place] n 00 tab, 3 Refill(s), Pharmacy: [facility], 157.48, cm, 01/27/21 9:27:00 [employer], Height, 95.455, kg, 01/27/21 9:27:00 [employer], Weight propranolol 2020- No 10 mg = 1 M emoria 10 mg oral 1-29 tab, PO, l tablet 21:30: BID, # 60 [place] n 00 tab, 3 Refill(s), Pharmacy: [facility], 157.48, cm, 01/27/21 9:27:00 [employer], Height, 95.455, kg, 01/27/21 9:27:00 [employer], Weight paroxetine 2020- No 15mg 40 mg [...] 00 paroxetine 2020-1 No 15mg 40 mg 04-07 tablet 00:00: 00 risperidone 2020-1 No 1mg 3 mg tablet 04-07 00:00: 00 amlodipine 2020-1 No 1mg 10 mg -27 tablet 00:00: 00 prazosin 1 2020-1 No 1mg mg capsule 04-07 00:00: 00 paroxetine 1-1 No 15mg 40 mg -27 tablet 00:00: 00 risperidone 2020-1 No 1mg 3 mg tablet 04-07 00:00: 00 amlodipine 1-1 No 1mg 10 mg -27 tablet 00:00: 00 prazosin 1 2020-1 No 1mg mg capsule 04-07 00:00: 00 paroxetine 1-1 No 15mg 40 mg -27 tablet 00:00: 00 risperidone 1-1 No 1mg 3 mg tablet 04-07 00:00: 00 amlodipine 1-1 No 1mg 10 mg -27 tablet 00:00: 00 prazosin 1 2020-1 No 1mg mg capsule 04-07 00:00: 00 paroxetine 1-1 No 15mg 40 mg -27 tablet 00:00: 00 risperidone 1-1 No 1mg 3 mg tablet 04-07 00:00: 00 amlodipine 2021-1 No 1mg 10 mg 04-07 tablet 00:00: 00 prazosin 1 2020-03 No 1mg mg capsule 04-07 00:00: 00 primidone 2020- Yes 50 mg = 1 Mem oria 50 mg oral 1-18 tab, PO, l tablet 15:43: TID, # 90 [place] n 00 tab, 3 Refill(s), Pharmacy: [facility], 157.48, cm, 01/27/21 9:27:00 [employer], Height, 95.455, kg, 01/27/21 9:27:00 [employer], Weight primidone 2020-03 Yes 50 mg = 1 Mem oria 50 mg oral 1-18 tab, PO, l tablet 15:43: TID, # 90 [place] n 00 tab, 3 Refill(s), Pharmacy: [facility], 157.48, cm, 01/27/21 9:27:00 [employer], Height, 95.455, kg, 01/27/21 9:27:00 [employer], Weight primidone 2020-03 Yes 50 mg = 1 Mem oria 50 mg oral 1-18 tab, PO, l tablet 15:43: TID, # 90 [place] n 00 tab, 3 Refill(s), Pharmacy: [facility], 157.48, cm, 01/27/21 9:27:00 [employer], Height, 95.455, kg, 01/27/21 9:27:00 [employer], Weight risperidone 2020-03 No 1mg 3 mg [...] 1mg mg capsule 03-12 00:00: 00 risperidone 2021-1 No 1mg 3 mg tablet 03-12 00:00: 00 paroxetine 2020- No 15mg 40 mg - tablet 00:00: 00 prazosin 1 2020-03 No 1mg mg capsule 03-12 00:00: 00 risperidone 2020-03 No 1mg 3 mg tablet 03-12 00:00: 00 paroxetine 2020- No 15mg 40 mg 1- tablet 00:00: 00 prazosin 1 2020-03 No 1mg mg capsule 03-12 00:00: 00 risperidone 2020-03 No 1mg 3 mg tablet 03-12 00:00: 00 paroxetine 2020-03 No 15mg 40 mg 03-12 tablet 00:00: 00 prazosin 1 2020-03 No 1mg mg capsule 03-12 00:00: 00 primidone 2020-03 No 50 mg = 1 Mem oria 50 mg oral 0-11 tab, PO, l tablet 19:49: Bedtime, # Evonne nn 00 90 tab, 3 Refill(s), Pharmacy: [facility], 160.02, cm, 12/16/20 10:35:00 CDT, Height, 98.636, kg, 12/16/20 10:35:00 CDT, Weight primidone 2020-03 No 50 mg = 1 Mem oria 50 mg oral 0-11 tab, PO, l tablet 19:49: Bedtime, # Evonne nn 00 90 tab, 3 Refill(s), Pharmacy: [facility], 160.02, cm, 12/16/20 10:35:00 CDT, Height, 98.636, kg, 12/16/20 10:35:00 CDT, Weight primidone 2020-03 No 50 mg = 1 Mem oria 50 mg oral 0-11 tab, PO, l tablet 19:49: Bedtime, # Evonne nn 00 90 tab, 3 Refill(s), Pharmacy: [facility] 1000, 160.02, cm, 12/16/20 10:35:00 CDT, Height, 98.636, kg, 12/16/20 10:35:00 CDT, Weight risperidone 2020-03 No 1mg 3 mg tablet 0-04 00:00: 00 paroxetine 2020- No 15mg 40 mg 0-04 tablet 00:00: 00 prazosin 1 2021-1 No 1mg mg capsule 0-04 00:00: 00 risperidone 2021-1 No 1mg 3 mg tablet 0-04 00:00: 00 paroxetine 2021-1 No 15mg 40 mg 0-04 tablet 00:00: 00 prazosin 1 2021-1 No 1mg mg capsule 0-04 00:00: 00 risperidone 2021-1 No 1mg 3 mg tablet 0-04 00:00: 00 paroxetine 2021-1 No 15mg 40 mg 0-04 tablet 00:00: 00 prazosin 1 2021-1 No 1mg mg capsule 0-04 00:00: 00 risperidone 2021-1 No 1mg 3 mg tablet 0-04 00:00: 00 paroxetine 2021-1 No 15mg 40 mg 0-04 tablet 00:00: 00 prazosin 1 2021-1 No 1mg mg capsule 0-04 00:00: 00 risperidone 2021-1 No 1mg 3 mg tablet 0-04 00:00: 00 paroxetine 2021-1 No 15mg 40 mg 0-04 tablet 00:00: 00 prazosin 1 2021-1 No 1mg mg capsule 0-04 00:00: 00 risperidone 2021-1 No 1mg 3 mg tablet 004 00:00: 00 paroxetine 2021-1 No 15mg 40 mg 0-04 tablet 00:00: 00 prazosin 1 2021-1 No 1mg mg capsule 0 00:00: 00 paroxetine 2021-0 No 1mg 40 mg 9- tablet 00:00: 00 risperidone 2021-0 No 1mg 3 mg tablet 11-11 00:00: 00 prazosin 1 2021-0 No 1mg mg capsule 11-11 00:00: 00 paroxetine 2021-0 No 1mg 40 mg 11-11 tablet 00:00: 00 risperidone 2021-0 No 1mg 3 mg tablet 11-11 00:00: 00 prazosin 1 2021-0 No 1mg mg capsule 11-11 00:00: 00 paroxetine 2021-0 No 1mg 40 mg - tablet 00:00: 00 risperidone 2021-0 No 1mg 3 mg tablet 11-11 00:00: 00 prazosin 1 2021-0 No 1mg mg capsule 11-11 00:00: 00 paroxetine 2021-0 No 1mg 40 mg 11-11 tablet 00:00: 00 risperidone 2021-0 No 1mg 3 mg tablet 11-11 00:00: 00 prazosin 1 1-0 No 1mg mg capsule 11-11 00:00: 00 paroxetine 2021-0 No 1mg 40 mg - tablet 00:00: 00 risperidone 2021-0 No 1mg 3 mg tablet 11-11 00:00: 00 prazosin 1 1-0 No 1mg mg capsule 11-11 00:00: 00 paroxetine 2021-0 No 1mg 40 mg 11-11 tablet 00:00: 00 risperidone 2021-0 No 1mg [...] 00:00: orothiazide 00 12.5 mg tablet amlodipine 2021-0 No 1mg 10 mg 8-17 tablet 00:00: 00 Keppra 500 2021-0 No 2mg mg tablet 10-26 00:00: 00 levothyroxi 2021-0 No 1mcg ne 137 mcg 8-17 tablet 00:00: 00 gabapentin 2021-0 No 1mg 300 mg 8-17 capsule 00:00: 00 lisinopril 2021-0 No 1mg 20 8-17 mg-hydrochl 00:00: orothiazide 00 12.5 mg tablet amlodipine 2021-0 No 1mg 10 mg 8-17 tablet 00:00: 00 Keppra 500 2021-0 No 2mg mg tablet 10-26 00:00: 00 levothyroxi 2021-0 No 1mcg ne 137 mcg 8-17 tablet 00:00: 00 gabapentin 2021-0 No 1mg 300 mg 8-17 capsule 00:00: 00 lisinopril 2021-0 No 1mg 20 8-17 mg-hydrochl 00:00: orothiazide 00 12.5 mg tablet amlodipine 2021-0 No 1mg 10 mg 8-17 tablet 00:00: 00 Keppra 500 2021-0 No 2mg mg tablet 10-26 00:00: 00 levothyroxi 2021-0 No 1mcg ne 137 mcg 8-17 tablet 00:00: 00 gabapentin 2021-0 No 1mg 300 mg 8-17 capsule 00:00: 00 lisinopril 2021-0 No 1mg 20 8-17 mg-hydrochl 00:00: orothiazide 00 12.5 mg tablet amlodipine 2021-0 No 1mg 10 mg 8-17 tablet 00:00: 00 Keppra 500 2021-0 No 2mg mg tablet 10-26 00:00: 00 [...] 00 paroxetine 2021-0 No 1mg 40 mg 10-18 tablet 00:00: 00 prazosin 1 2021-0 No 1mg mg capsule 10-18 00:00: 00 risperidone 2021-0 No 1mg 3 mg tablet 10-18 00:00: 00 paroxetine 2021-0 No 1mg 40 mg 10-18 tablet 00:00: 00 prazosin 1 2021-0 No 1mg mg capsule 10-18 00:00: 00 risperidone 2021-0 No 1mg 3 mg tablet 10-18 00:00: 00 paroxetine 2021-0 No 1mg 40 mg 10-18 tablet 00:00: 00 prazosin 1 2021-0 No 1mg mg capsule 10-18 00:00: 00 risperidone 2021-0 No 1mg 3 mg tablet 10-18 00:00: 00 paroxetine 2021-0 No 1mg 40 mg 10-18 tablet 00:00: 00 prazosin 1 2021-0 No [...] 00:00: orothiazide 00 12.5 mg tablet risperidone 2021-0 No 1mg 3 mg tablet 09-20 00:00: 00 paroxetine 2021-0 No 1mg 40 mg - tablet 00:00: 00 prazosin 1 2021-0 No 1mg mg capsule 09-20 00:00: 00 risperidone 2021-0 No 1mg 3 mg tablet 09-20 00:00: 00 paroxetine 2021-0 No 1mg 40 mg 7-12 tablet 00:00: 00 prazosin 1 2021-0 No 1mg mg capsule 7-12 00:00: 00 risperidone 2021-0 No 1mg 3 mg tablet 7- 00:00: 00 paroxetine 2021-0 No 1mg 40 mg 7-12 tablet 00:00: 00 prazosin 1 2021-0 No 1mg mg capsule 7- 00:00: 00 risperidone 2021-0 No 1mg 3 mg tablet 7- 00:00: 00 paroxetine 2021-0 No 1mg 40 mg 7-12 tablet 00:00: 00 prazosin 1 2021-0 No 1mg mg capsule 7 00:00: 00 risperidone 2021-0 No 1mg 3 mg tablet 7 00:00: 00 paroxetine 2021-0 No 1mg 40 mg 7-12 tablet 00:00: 00 prazosin 1 2021-0 No 1mg mg capsule 7- 00:00: 00 risperidone 2021-0 No 1mg 3 mg tablet 7- 00:00: 00 paroxetine 2021-0 No 1mg 40 mg 7-12 tablet 00:00: 00 prazosin 1 2021-0 No 1mg mg capsule 7 00:00: 00 Keppra 500 2021-0 No 2mg mg tablet 6 00:00: 00 Keppra 500 2021-0 No 1mg mg tablet 610 00:00: 00 Keppra 500 2021-0 No 2mg mg tablet 6 00:00: 00 Keppra 500 2021-0 No 1mg mg tablet 610 00:00: 00 Keppra 500 2021-0 No 2mg mg tablet 10 00:00: 00 Keppra 500 2021-0 No 1mg mg tablet 08-19 00:00: 00 Keppra 500 2021-0 No 2mg mg tablet 10 00:00: 00 Keppra 500 2021-0 No 1mg mg tablet 10 00:00: 00 Keppra 500 2021-0 No 2mg mg tablet 10 00:00: 00 Keppra 500 2021-0 No 1mg mg tablet 610 00:00: 00 Keppra 500 2021-0 No 2mg mg tablet 10 00:00: 00 Keppra 500 2021-0 No 1mg mg tablet 6-10 00:00: 00 ketoconazol 2021-0 No 1% e [...] mg tablet 5-17 00:00: 00 prazosin 1 2021-0 No 1mg mg capsule 5-17 00:00: 00 [...] mg tablet 5-17 00:00: 00 prazosin 1 2021-0 No 1mg mg capsule 5-17 00:00: 00 paroxetine 2021-0 No 1mg 40 mg 5-17 tablet 00:00: 00 risperidone 2021-0 No 1mg 3 mg tablet 5-17 00:00: 00 prazosin 1 2021-0 No 1mg mg capsule 5-17 00:00: 00 [...] Keppra 500 2021-0 No 1mg mg tablet 324 00:00: 00 Keppra 500 2021-0 No 1mg mg tablet 06-02 00:00: 00 Keppra 500 2021-0 No 1mg mg tablet 3 00:00: 00 Keppra 500 2021-0 No 1mg mg tablet 3 00:00: 00 Keppra 500 2021-0 No 1mg mg tablet 324 00:00: 00 Keppra 500 2021-0 No 1mg mg tablet 3 00:00: 00 risperidone 2021-0 No 1mg 3 mg tablet 315 00:00: 00 paroxetine 2021-0 No 1mg 40 mg 3-15 tablet 00:00: 00 risperidone 2021-0 No 1mg 3 mg tablet 315 00:00: 00 paroxetine 2021-0 No 1mg 40 mg 3-15 tablet 00:00: 00 risperidone 2021-0 No 1mg 3 mg tablet 3-15 00:00: 00 paroxetine 2021-0 No 1mg 40 mg 3-15 tablet 00:00: 00 risperidone 2021-0 No 1mg 3 mg tablet 315 00:00: 00 paroxetine 2021-0 No 1mg 40 mg 3-15 tablet 00:00: 00 risperidone 2021-0 No 1mg 3 mg tablet 315 00:00: 00 paroxetine 2021-0 No 1mg 40 mg 3-15 tablet 00:00: 00 risperidone 2021-0 No 1mg 3 mg tablet 315 00:00: 00 paroxetine 2021-0 No 1mg 40 [...] thiazide 3-04 12.5 mg 00:00: tablet 00 hydrochloro 2021-0 No 1mg thiazide 3-04 12.5 mg 00:00: tablet 00 amlodipine 2021-0 No 1mg 10 mg 3-04 tablet 00:00: 00 lisinopril 2021-0 No 1mg 10 mg 3-04 tablet 00:00: 00 lamotrigine 2021-0 No 1mg 100 mg 3-04 tablet 00:00: 00 amlodipine 2021-0 No 1mg [...] 137 mcg 3-01 tablet 00:00: 00 UNITHROID 2021-0 Yes [facility] 137 mcg 3-01 [facility] of tablet 00:00: [address] UNITHROID 2021-0 Yes [facility] 137 mcg 3-01 ity of tablet 00:00: [address] UNITHROID 2021-0 Yes [facility] 137 mcg 3-01 [facility] of tablet 00:00: [place] [facility] UNITHROID 2021-0 Yes [facility] 137 mcg 3-01 it[facility] of tablet 00:00: [place] [facility] UNITHROID 2021-0 Yes [facility] 137 mcg 3-01 ity of tablet 00:00: [place] [facility] PARoxetine 2021-0 Yes 40mg Take 40 mg U nivers 40 mg 2-12 by mouth ity of tablet 00:00: every [place] morning. [facility] PARoxetine 2021-0 Yes 40mg Take 40 mg U nivers 40 mg 2-12 by mouth ity of tablet 00:00: every [place] morning. [facility] PARoxetine 2021-0 Yes 40mg Take 40 mg U nivers 40 mg 2-12 by mouth ity of tablet 00:00: every [place] morning. [facility] PARoxetine 1-0 Yes 40mg Take 40 mg U nivers 40 mg 2-12 by mouth ity of tablet 00:00: every [place] [id number] morning. [facility] PARoxetine 1-0 Yes 40mg Take 40 mg U nivers 40 mg 2-12 by mouth ity of tablet 00:00: every [place] [id number] morning. [facility] risperidone 1-0 No 1mg 3 mg tablet 2-10 00:00: 00 risperidone 1-0 No 1mg 3 mg tablet 2-10 00:00: 00 risperidone 2021-0 No 1mg 3 mg tablet 2-10 00:00: 00 risperidone 2021-0 No 1mg 3 mg tablet 2-10 00:00: 00 risperidone 2021-0 No 1mg 3 mg tablet 2-10 00:00: 00 risperidone 2021-0 No 1mg 3 mg tablet 2-10 00:00: 00 hydroCHLORO 2021-0 Yes 12.5mg Take 12.5 [facility] thiazide 2-10 mg by ity of 12.5 mg 00:00: mouth [place] tablet 00 every Medical morning. Branch lisinopriL 1-0 Yes 10mg Take 10 mg U nivers 10 mg 2-10 by mouth ity of tablet 00:00: every [place] [address] morning. Medical Branch risperiDONE 1-0 Yes 3mg Take 3 mg U nivers 3 mg tablet 2-10 by mouth ity of 00:00: daily. Medical Branch amLODIPine 1-0 Yes 10mg Take 10 mg U nivers 10 mg 2-10 by mouth ity of tablet 00:00: every [place] 00 morning. Medical Branch hydroCHLORO 1-0 Yes 12.5mg Take 12.5 [facility] thiazide 2-10 mg by ity of 12.5 mg 00:00: mouth [place] tablet 00 every Medical morning. Branch lisinopriL 1-0 Yes 10mg Take 10 mg U nivers 10 mg 2-10 by mouth ity of tablet 00:00: every [place] 00 morning. Medical Branch risperiDONE 1-0 Yes 3mg Take 3 mg U nivers 3 mg tablet 2-10 by mouth ity of 00:00: daily. 00 Medical Branch amLODIPine 2020-0 Yes 10mg Take 10 mg U nivers 10 mg 2-10 by mouth ity of tablet 00:00: every [place] 00 morning. Medical Branch hydroCHLORO 1-0 Yes 12.5mg Take 12.5 [facility] thiazide 2-10 mg by ity of 12.5 mg 00:00: mouth [place] tablet 00 every Medical morning. Branch lisinopriL 1-0 Yes 10mg Take 10 mg U nivers 10 mg 2-10 by mouth ity of tablet 00:00: every [place] morning. Medical Branch risperiDONE 1-0 Yes 3mg Take 3 mg U nivers 3 mg tablet 2-10 by mouth ity of 00:00: daily. Medical Branch amLODIPine 2020-0 Yes 10mg Take 10 mg U nivers 10 mg 2-10 by mouth ity of tablet 00:00: every [place] morning. Medical Branch hydroCHLORO 1-0 Yes 12.5mg Take 12.5 [facility] thiazide 2-10 mg by ity of 12.5 mg 00:00: mouth [place] tablet 00 every Medical morning. Branch lisinopriL 1-0 Yes 10mg Take 10 mg U nivers 10 mg 2-10 by mouth ity of tablet 00:00: every [place] 00 morning. Medical Branch risperiDONE 1-0 Yes 3mg Take 3 mg U nivers 3 mg tablet 2-10 by mouth ity of 00:00: daily. [place] [facility] amLODIPine 1-0 Yes 10mg Take 10 mg U nivers 10 mg 2-10 by mouth ity of tablet 00:00: every [place] 00 morning. Medical Branch hydroCHLORO 1-0 Yes 12.5mg Take 12.5 [facility] thiazide 2-10 mg by ity of 12.5 mg 00:00: mouth [place] tablet 00 every Medical morning. Branch lisinopriL Yes 10mg Take 10 mg U nivers 10 mg 2-10 by mouth ity of tablet 00:00: every [place] [address] morning. Medical Branch risperiDONE 2020-0 Yes 3mg Take 3 mg U nivers 3 mg tablet 2-10 by mouth ity of 00:00: daily. Medical Branch amLODIPine 2020- Yes 10mg Take 10 mg U nivers 10 mg 2-10 by mouth ity of tablet 00:00: every [place] morning. Medical Branch hydrOXYzine Yes TAKE 1 [facility] ers 50 mg 2-06 TABLET BY ity of tablet 00:00: MOUTH 3 [place] TIMES A Medical DAY Branch NEEDED FOR ANXIETY risperiDONE Yes 2mg Take 2 mg U nivers 2 mg tablet 2-06 by mouth ity of 00:00: at [place] [address] bedtime. Medical Branch hydrOXYzine Yes TAKE 1 [facility] ers 50 mg 2-06 TABLET BY ity of tablet 00:00: MOUTH 3 [place] TIMES A Medical DAY Branch NEEDED FOR ANXIETY risperiDONE 2020- Yes 2mg Take 2 mg U nivers 2 mg tablet 2-06 by mouth ity of 00:00: at [place] [address] bedtime. Medical Branch hydrOXYzine Yes TAKE 1 [facility] ers 50 mg 2-06 TABLET BY ity of tablet 00:00: MOUTH 3 [place] TIMES A Medical DAY Branch NEEDED FOR ANXIETY risperiDONE 2020- Yes 2mg Take 2 mg U nivers 2 mg tablet 2-06 by mouth ity of 00:00: at [place] [address] bedtime. Medical Branch hydrOXYzine Yes TAKE 1 [facility] ers 50 mg 2-06 TABLET BY ity of tablet 00:00: MOUTH 3 [place] TIMES A Medical DAY Branch NEEDED FOR ANXIETY risperiDONE 2020-0 Yes 2mg Take 2 mg U nivers 2 mg tablet 2-06 by mouth ity of 00:00: at [place] [address] bedtime. Medical Branch hydrOXYzine Yes TAKE 1 [facility] ers 50 mg 2-06 TABLET BY ity of tablet 00:00: MOUTH 3 [place] TIMES A Medical DAY Branch NEEDED FOR ANXIETY risperiDONE 2020-0 Yes 2mg Take 2 mg U nivers 2 mg tablet 2-06 by mouth ity of 00:00: at [place] 00 bedtime. Medical Branch paroxetine 2021-0 No 1mg 40 mg 2-03 [...] by ity of tablet 00:00: mouth 2 [place] (two) Medical times Branch daily. OXcarbazepi 2021-0 Yes 150mg Take 150 U nivers ne 150 mg 2-03 mg by ity of tablet 00:00: mouth 2 [place] (two) Medical times Branch daily. OXcarbazepi 2021-0 Yes 150mg Take 150 U nivers ne 150 mg 2-03 mg by ity of tablet 00:00: mouth 2 [place] (two) Medical times Branch daily. OXcarbazepi 2021-0 Yes 150mg Take 150 U nivers ne 150 mg 2-03 mg by ity of tablet 00:00: mouth 2 [place] (two) Medical times Branch daily. OXcarbazepi 2021-0 Yes 150mg Take 150 U nivers ne 150 mg 2-03 mg by ity of tablet 00:00: mouth [place] (two) Medical times Branch daily. Keppra 500 1-0 No 1mg mg tablet -21 00:00: 00 Keppra 500 1-0 No 1mg mg tablet 21 00:00: 00 Keppra 500 1-0 No 1mg mg tablet 21 00:00: 00 Keppra 500 1-0 No 1mg mg tablet 21 00:00: 00 Keppra 500 1-0 No 1mg mg tablet -21 00:00: 00 Keppra 500 1-0 No 1mg [...] 1-14 12.5 mg 00:00: tablet 00 lisinopril 1-0 No 1mg 10 mg 1-14 tablet 00:00: [...] 50 mg 1-14 tablet 00:00: 00 levETIRAcet 2019-1 Yes TAKE 1 [facility] ers [...] BY ity o f tablet 00:00: MOUTH [place] 00 EVERY Medical MORNING Branch AND 2 TABLETS IN THE EVENING levETIRAcet 2019-03 Yes TAKE 1 [facility] ers am 500 mg 2-31 TABLET BY ity o f tablet 00:00: MOUTH [place] 00 EVERY Medical MORNING Branch AND 2 TABLETS IN THE EVENING levETIRAcet 2019-03 Yes TAKE 1 [facility] ers am 500 mg 2-31 TABLET BY ity o f tablet 00:00: MOUTH [place] 00 EVERY Medical MORNING Branch AND 2 [...] 40 mg 2-14 tablet 00:00: 00 risperidone 2019- No 1mg 2 mg tablet 2-14 00:00: 00 hydroxyzine 2019-03 No 1mg HCl 50 mg 2-14 tablet 00:00: 00 paroxetine 2019-03 No 1mg 40 mg 2-14 tablet 00:00: 00 risperidone 2019-03 No 1mg 2 mg tablet 2-14 00:00: 00 hydroxyzine 2019-03 No 1mg HCl 50 mg 2-14 tablet 00:00: 00 paroxetine 2019-03 No 1mg 40 mg 2-14 tablet 00:00: 00 risperidone 2019- No 1mg 2 mg tablet 2-14 00:00: 00 hydroxyzine 2019-03 No 1mg HCl 50 mg 2-14 tablet 00:00: 00 hydrochloro 2019-1 No 1mg thiazide 2-11 12.5 mg 00:00: tablet 00 amlodipine 2019-1 No 1mg 10 mg 2-11 tablet 00:00: 00 lisinopril 2020- No 1mg 10 mg 2-11 tablet 00:00: 00 lamotrigine 2019- No 1mg 100 mg 2-11 tablet 00:00: 00 hydrochloro 2019- No 1mg thiazide 2-11 12.5 mg 00:00: tablet 00 amlodipine 2019- No 1mg 10 mg 2-11 tablet 00:00: 00 lisinopril 2019- No 1mg 10 mg 2-11 tablet 00:00: 00 lamotrigine 2019- No 1mg 100 mg 2-11 tablet 00:00: 00 hydrochloro 2019- No 1mg thiazide 2-11 12.5 mg 00:00: tablet 00 amlodipine 2019- No 1mg 10 mg 2-11 tablet 00:00: 00 lisinopril 2019- No 1mg 10 mg 2-11 tablet 00:00: 00 lamotrigine 2019- No 1mg 100 mg 2-11 tablet 00:00: 00 hydrochloro 2019- No 1mg thiazide 2-11 12.5 mg 00:00: tablet 00 amlodipine 2019- No 1mg 10 mg 2-11 tablet 00:00: 00 lisinopril 2019- No 1mg 10 mg 2-11 tablet 00:00: 00 lamotrigine 2019- No 1mg 100 mg 2-11 tablet 00:00: 00 hydrochloro 2019- No 1mg thiazide 2-11 12.5 mg 00:00: tablet 00 amlodipine 2019- No 1mg 10 mg 2-11 tablet 00:00: 00 lisinopril 2019- No 1mg 10 mg 2-11 tablet 00:00: 00 lamotrigine 2019- No 1mg 100 mg 2-11 tablet 00:00: 00 hydrochloro 2019-1 No 1mg thiazide 2-11 12.5 mg 00:00: tablet 00 amlodipine 2019- No 1mg 10 mg 2-11 tablet 00:00: 00 lisinopril 2019- No 1mg 10 mg 2-11 tablet 00:00: 00 lamotrigine 2019- No 1mg 100 mg 2-11 tablet 00:00: 00 lamoTRIgine 2020-1 Yes 100mg Take 100 U nivers 100 mg 2-10 mg by ity of tablet 00:00: mouth 2 [place] ([facility]) Medical times Branch daily. buPROPion 2020-1 Yes 75mg Take 75 mg Un jaye 75 mg 2-10 by mouth 2 ity of tablet 00:00: (two) [place] times Medical daily. Branch lamoTRIgine 2019- Yes 100mg Take 100 U nivers 100 mg 2-10 mg by ity of tablet 00:00: mouth 2 [place] (two) Medical times Branch daily. buPROPion 2020- Yes 75mg Take 75 mg Un jaye 75 mg 2-10 by mouth 2 ity of tablet 00:00: ([facility]) [place] times Medical daily. Branch lamoTRIgine 2019- Yes 100mg Take 100 U nivers 100 mg 2-10 mg by ity of tablet 00:00: mouth 2 [place] (two) Medical times Branch daily. buPROPion 2020-1 Yes 75mg Take 75 mg Un jaye 75 mg 2-10 by mouth 2 ity of tablet 00:00: (two) [place] times Medical daily. Branch lamoTRIgine 2019- Yes 100mg Take 100 U nivers 100 mg 2-10 mg by ity of tablet 00:00: mouth 2 [place] (two) Medical times Branch daily. buPROPion 2019- Yes 75mg Take 75 mg Un jaye 75 mg 2-10 by mouth 2 ity of tablet 00:00: (two) [place] times Medical daily. Branch lamoTRIgine 2019- Yes 100mg Take 100 U nivers 100 mg 2-10 mg by ity of tablet 00:00: mouth 2 [place] (two) Medical times Branch daily. buPROPion 2019-1 Yes 75mg Take 75 mg Un j[place] 75 mg 2-10 by mouth 2 ity of tablet 00:00: (two) [place] times Medical daily. Branch paroxetine 2019- No [...] risperidone 2019- No 1mg 1 mg tablet -13 00:00: 00 hydroxyzine 2019- No 1mg HCl 50 mg 1-13 tablet 00:00: 00 paroxetine 2019- No 1mg 40 mg 1-13 tablet 00:00: 00 risperidone 2019- No 1mg 1 mg tablet -13 00:00: 00 hydroxyzine 2019- No 1mg HCl [...] 10 mg 0-29 tablet 00:00: 00 lamotrigine 2019- No 1mg 200 mg 0-27 tablet 00:00: 00 Keppra 500 2019- No 1mg mg tablet 0-27 00:00: 00 lamotrigine 2019- No 1mg 200 mg 0-27 tablet 00:00: 00 Keppra 500 2019-03 No 1mg mg tablet 0-27 00:00: 00 lamotrigine 2019- No 1mg 200 mg 0-27 tablet 00:00: 00 Keppra 500 2019-03 No 1mg mg tablet 0-27 00:00: 00 lamotrigine 2019- No 1mg 200 mg 0-27 tablet 00:00: 00 Keppra 500 2019-03 No 1mg mg tablet 0-27 00:00: 00 lamotrigine 2019- No 1mg 200 mg 0-27 tablet 00:00: 00 Keppra 500 2019-03 No 1mg mg tablet 0-27 00:00: 00 lamotrigine 2019- No 1mg 200 mg 0-27 tablet 00:00: 00 Keppra 500 2019-03 No 1mg mg tablet 0-27 00:00: 00 Keppra 500 2019- No 1mg mg tablet 0-24 00:00: 00 Keppra 500 2019- No 1mg mg tablet 0-24 00:00: 00 Keppra 500 2019-03 No 1mg mg tablet 0-24 00:00: 00 [...] risperidone 2020-0 No 1mg 1 mg tablet 11-27 00:00: 00 hydroxyzine 2020-0 No 1mg HCl 50 mg 9-18 tablet 00:00: 00 paroxetine 2020-0 No 1mg 40 mg 9-18 tablet 00:00: 00 risperidone 2020-0 No 1mg 1 mg tablet 11-27 00:00: 00 hydroxyzine 2020-0 No 1mg HCl 50 mg 9-18 tablet 00:00: 00 paroxetine 2020-0 No 1mg 40 mg 9-18 tablet 00:00: 00 risperidone 2020-0 No 1mg 1 mg tablet 11-27 00:00: 00 hydroxyzine 2020-0 No 1mg HCl 50 mg 9-18 tablet 00:00: 00 paroxetine 2020-0 No 1mg 40 mg 9-18 tablet 00:00: 00 risperidone 2020-0 No 1mg 1 mg tablet 11-27 00:00: 00 hydroxyzine 2020-0 No 1mg HCl 50 mg 9-18 tablet 00:00: 00 paroxetine 2020-0 No 1mg 40 mg 9-18 tablet 00:00: 00 risperidone 2020-0 No 1mg 1 mg tablet 11-27 00:00: 00 hydroxyzine 2020-0 No 1mg HCl 50 mg 9-18 tablet 00:00: 00 paroxetine 2020-0 No 1mg 40 mg 8-21 tablet 00:00: 00 risperidone 2020-0 No 1mg 1 mg tablet 10-30 00:00: 00 hydroxyzine 2020-0 No 1mg HCl 50 mg 8-21 tablet 00:00: 00 paroxetine 2020-0 No 1mg 40 mg 8-21 tablet 00:00: 00 risperidone 2020-0 No 1mg 1 mg tablet 8 00:00: 00 hydroxyzine 2020-0 No 1mg HCl 50 mg 8-21 tablet 00:00: 00 paroxetine 2020-0 No 1mg 40 mg 8-21 tablet 00:00: 00 risperidone 2020-0 No 1mg 1 mg tablet 10-30 00:00: 00 hydroxyzine 2020-0 No 1mg HCl [...] risperidone 2020-0 No 1mg 1 mg tablet 8 00:00: 00 hydroxyzine 2020-0 No 1mg HCl [...] 7-23 tablet 00:00: 00 meloxicam 2020-0 Yes [id number] 7.5mg Take 1 [facility] 7.5 mg 7-10 9107 tablet by ity of tablet 00:00: mouth once daily as Medical needed for Branch Pain (scale 7-10). meloxicam 2020-0 Yes [id number] 7.5mg Take 1 [facility] 7.5 mg 7-10 9107 tablet by ity of tablet 00:00: mouth once daily as Medical needed for Branch Pain (scale 7-10). meloxicam 2020-0 Yes [id number] 7.5mg Take 1 [facility] 7.5 mg 7-10 9107 tablet by ity of tablet 00:00: mouth once [place] 00 daily as Medical needed for Branch Pain (scale 7-10). meloxicam 2020-0 Yes [id number] 7.5mg Take 1 [facility] 7.5 mg 7-10 9107 tablet by ity of tablet 00:00: mouth once [place] 00 daily as Medical needed for Branch Pain (scale 7-10). meloxicam 2020-0 Yes [id number] 7.5mg Take 1 [facility] 7.5 mg 7-10 9107 tablet by ity of tablet 00:00: mouth once [place] 00 daily as Medical needed for Branch Pain (scale 7-10). meloxicam 2020-0 Yes [id number] 7.5mg Take 1 [facility] 7.5 mg 7-10 9107 tablet by ity of tablet 00:00: mouth once [place] 00 daily as Medical needed for Branch Pain (scale 7-10). meloxicam 2020-0 Yes [id number] 7.5mg Take 1 [facility] 7.5 mg 7-10 9107 tablet by ity of tablet 00:00: mouth once [place] 00 daily as Medical needed for Branch Pain (scale 7-10). meloxicam 2020-0 Yes [id number] 7.5mg Take 1 [facility] 7.5 mg 7-10 9107 tablet by ity of tablet 00:00: mouth once [place] 00 daily as Medical needed for Branch Pain (scale 7-10). meloxicam 2020-0 Yes [id number] 7.5mg Take 1 [facility] 7.5 mg 7-10 9107 tablet by ity of tablet 00:00: mouth once [place] 00 daily as Medical needed for Branch Pain (scale 7-10). meloxicam 2020-0 Yes [id number] 7.5mg Take 1 [facility] 7.5 mg 7-10 9107 tablet by ity of tablet 00:00: mouth once [place] 00 daily as Medical needed for Branch Pain (scale 7-10). meloxicam 2020-0 Yes [id number] 7.5mg Take 1 [facility] 7.5 mg 7-10 9107 tablet by ity of tablet 00:00: mouth once [place] 00 daily as Medical needed for Branch Pain (scale 7-10). meloxicam 2020-0 Yes [id number] 7.5mg Take 1 [facility] 7.5 mg 7-10 9107 tablet by ity of tablet 00:00: mouth once [place] 00 daily as Medical needed for Branch Pain (scale 7-10). meloxicam 2020-0 Yes [id number] 7.5mg Take 1 [facility] 7.5 mg 7-10 9107 tablet by ity of tablet 00:00: mouth once [place] 00 daily as Medical needed for Branch Pain (scale 7-10). meloxicam 2020-0 Yes [id number] 7.5mg Take 1 [facility] 7.5 mg 7-10 9107 tablet by ity of tablet 00:00: mouth once [place] 00 daily as Medical needed for Branch Pain (scale 7-10). meloxicam 2020-0 Yes [id number] 7.5mg Take 1 [facility] 7.5 mg 7-10 9107 tablet by ity of tablet 00:00: mouth once [place] 00 daily as Medical needed for Branch Pain (scale 7-10). meloxicam 2020-0 Yes [id number] 7.5mg Take 1 [facility] 7.5 mg 7-10 [...] risperidone 2020-0 No 1mg 1 mg tablet 624 00:00: 00 hydroxyzine 2020-0 No 1mg HCl 25 mg 6-24 tablet 00:00: 00 paroxetine 2020-0 No 1mg 40 mg 6-24 tablet 00:00: 00 risperidone 2020-0 No 1mg 1 mg tablet 6-24 00:00: 00 hydroxyzine 2020-0 No 1mg HCl 25 mg 6-24 tablet 00:00: 00 paroxetine 2020-0 No 1mg 40 mg 6-24 tablet 00:00: 00 risperidone 2020-0 No 1mg 1 mg tablet 24 00:00: 00 hydroxyzine 2020-0 No 1mg HCl [...] Rexulti 1 2020-0 No 1mg mg tablet 5- 00:00: 00 paroxetine 2020-0 No 1mg 40 mg 5-26 tablet 00:00: 00 Rexulti 1 2020-0 No 1mg mg tablet - 00:00: 00 paroxetine 2020-0 No 1mg 40 mg 5-26 tablet 00:00: 00 Rexulti 1 2020-0 No 1mg mg tablet - 00:00: 00 paroxetine 2020-0 No 1mg 40 mg 5-26 tablet 00:00: 00 Rexulti 1 2020-0 No 1mg mg tablet 5-26 00:00: 00 methocarbam 2020-0 No 1mg ol [...] 40 mg 1-11 tablet 00:00: 00 citalopram 2019-1 No 1mg 10 mg 1-11 tablet 00:00: 00 paroxetine 2019-1 No 1mg 40 mg 1-11 tablet 00:00: 00 citalopram 2019-1 No 1mg 10 mg 1-11 tablet 00:00: 00 paroxetine 2019-1 No 1mg 40 mg 1-11 tablet 00:00: 00 citalopram 2018-1 No 1mg 10 mg 1-11 tablet 00:00: 00 paroxetine 2019-1 No 1mg 40 mg 1-11 tablet 00:00: 00 citalopram 2019-1 No 1mg 10 mg 1-11 tablet 00:00: 00 paroxetine 2019-1 No 1mg 40 mg 1-11 tablet 00:00: 00 citalopram 2019- No 1mg 10 mg 1-11 tablet 00:00: 00 paroxetine 2019-1 No 1mg 40 mg 1-11 tablet 00:00: 00 lisinopril 2018- No 1mg [...] mg 0-26 tablet 00:00: 00 Keppra 500 2018-03 No 1mg mg tablet 0 00:00: 00 levothyroxi 2018- No 1mcg ne [...] Keppra 500 2018- No 1mg mg tablet 026 00:00: 00 levothyroxi 2018-1 No 1mcg ne [...] 20 mg 0-23 tablet 00:00: 00 amlodipine 2019- No 1mg 10 mg 0-23 tablet 00:00: 00 lisinopril 2019- No 1mg 10 mg 0-23 tablet 00:00: 00 hydrochloro 2018-1 No 1mg thiazide 0-23 12.5 mg 00:00: tablet 00 lamotrigine 2018- No 1mg 200 mg 0-23 tablet 00:00: 00 lamotrigine 2018- No 1mg 100 mg 0-23 tablet 00:00: 00 bupropion 2018- No 1mg HCl 75 mg 0-23 tablet [...] 10 mg 0-23 tablet 00:00: 00 hydrochloro 2018- No 1mg thiazide 0-23 12.5 mg 00:00: tablet 00 lamotrigine 2018- No 1mg 200 mg 0-23 tablet 00:00: 00 lamotrigine 2018- No 1mg 100 mg 0-23 tablet 00:00: 00 bupropion 2018- No 1mg HCl 75 mg 0-23 tablet 00:00: 00 levothyroxi 2018- No 1mcg ne 137 mcg 0-23 tablet 00:00: 00 citalopram 2018- No 1mg 10 mg 0-23 tablet 00:00: 00 paroxetine 2019-1 No 1mg 40 mg 0-23 tablet 00:00: 00 famotidine 2018- No 1mg 20 mg 0-23 tablet 00:00: 00 amlodipine 2018-1 No 1mg 10 mg 0-23 tablet 00:00: 00 lisinopril 2018- No 1mg 10 mg 0-23 tablet 00:00: 00 hydrochloro 2018- No 1mg thiazide 0-23 12.5 mg 00:00: tablet 00 lamotrigine 2018- No 1mg 200 mg 0-23 tablet 00:00: 00 lamotrigine 2019- No 1mg 100 mg 0-23 tablet 00:00: 00 bupropion 2018- No 1mg HCl 75 mg 0-23 tablet [...] 10 mg 0-23 tablet 00:00: 00 hydrochloro 2018- No 1mg thiazide 0-23 12.5 mg 00:00: tablet 00 lamotrigine 2018- No 1mg 200 mg 0-23 tablet 00:00: 00 lamotrigine 2018- No 1mg 100 mg 0-23 tablet 00:00: 00 bupropion 2018- No 1mg HCl 75 mg 0-23 tablet [...] 100 mg 0-23 tablet 00:00: 00 bupropion 2018- No 1mg HCl 75 mg 0-23 tablet [...] # [place] 00 30 tab, 0 Refill(s) primidone 2018-03 Yes 50 mg = 1 Mem oria 50 mg oral 0-18 tab, PO, l tablet 20:06: Bedtime, # [place] 00 30 tab, 4 Refill(s), Pharmacy: [facility] [address] [place] [address] primidone 2018-03 Yes 50 mg = 1 Mem oria 50 mg oral 0-18 tab, PO, l tablet 20:06: Bedtime, # [place] 00 30 tab, 4 Refill(s), Pharmacy: [facility] [address] [place] [address] primidone 2018-03 Yes 50 mg = 1 Mem oria 50 mg oral 0-18 tab, PO, l tablet 20:06: Bedtime, # [place] 00 30 tab, 4 Refill(s), Pharmacy: [facility] [address] [place], [place] paroxetine 2019-0 No [...] HCl 4 mg 9-11 tablet 00:00: 00 hydrochloro 2019-0 Yes 1 tab, PO, Memoria thiazide-li 8-29 Daily, # l sinopril 19:11: 30 tab, 0 Herm clarice 12.5 mg-20 00 Refill(s) mg oral tablet lisinopril 0 Yes 20 mg = 1 Me moria 20 mg oral 8-29 tab, PO, l tablet 19:11: Daily, # [place] 00 30 tab, 0 Refill(s) hydrochloro 2018-0 Yes 1 tab, PO, Memoria thiazide-li 8-29 Daily, # l sinopril 19:11: 30 tab, 0 Herm clarice 12.5 mg-20 00 Refill(s) mg oral tablet lisinopril 2018-0 Yes 20 mg = 1 Me moria 20 mg oral 11-07 tab, PO, l tablet 19:11: Daily, # [place] 00 30 tab, 0 Refill(s) Paxil 30 mg 2019-0 No 1mg tablet 11-05 00:00: 00 Wellbutrin 2019-0 No 1mg XL 150 mg 11-05 24 hr 00:00: tablet, 00 extended release Abilify 2 2019-0 No 1mg mg tablet 11-05 00:00: 00 Paxil 30 mg 2019-0 No 1mg tablet 11-05 00:00: 00 Wellbutrin 2018-0 No 1mg XL 150 mg 11-05 24 hr 00:00: tablet, 00 extended release Abilify 2 2019-0 No 1mg mg tablet 11-05 00:00: 00 Paxil 30 mg 2019-0 No 1mg tablet 11-05 00:00: 00 Wellbutrin 2018-0 No 1mg XL 150 mg 11-05 24 hr 00:00: tablet, 00 extended release Abilify 2 2019-0 No 1mg mg tablet 11-05 00:00: 00 Paxil 30 mg 2019-0 No 1mg tablet 11-05 00:00: 00 Wellbutrin 2018-0 No 1mg XL 150 mg 11-05 24 hr 00:00: tablet, 00 extended release Abilify 2 2019-0 No 1mg mg tablet 11-05 00:00: 00 Paxil 30 mg 2019-0 No 1mg tablet 11-05 00:00: 00 Wellbutrin 2018-0 No 1mg XL 150 mg 11-05 24 hr 00:00: tablet, 00 extended release Paxil 30 mg 2019-0 No 1mg tablet 11-05 00:00: 00 Abilify 2 2019-0 No 1mg mg tablet 11-05 00:00: 00 Wellbutrin 2018-0 No 1mg XL 150 mg 11-05 24 hr 00:00: tablet, 00 extended release Abilify 2 2019-0 No 1mg mg tablet 11-05 00:00: 00 lisinopril 2019-0 No 1mg 20 mg 10-30 tablet 00:00: 00 lisinopril 2019-0 No 1mg [...] Wellbutrin 2019-0 No 1mg XL 150 mg 716 24 hr 00:00: tablet, 00 extended release Paxil 40 mg 2019-0 No 1mg tablet 716 00:00: 00 Paxil 10 mg 2019-0 No 1mg tablet 716 00:00: 00 Wellbutrin 2019-0 No 1mg XL 150 mg 716 24 hr 00:00: tablet, 00 extended release [...] 00:00: orothiazide 00 12.5 mg tablet amlodipine 2018-0 No 1mg 10 mg 7-09 tablet 00:00: 00 Synthroid 2019-0 No 1mcg 150 mcg 7- tablet 00:00: 00 Paxil 40 mg 2019-0 No 1mg tablet 7 00:00: 00 Paxil 10 mg 2019-0 No 1mg tablet 7 00:00: 00 Wellbutrin 2019-0 No 1mg XL 150 mg 7 24 hr 00:00: tablet, 00 extended release Paxil 40 mg 2019-0 No 1mg tablet 7 00:00: 00 Paxil 10 mg 2019-0 No 1mg tablet 7 00:00: 00 Wellbutrin 2019-0 No 1mg XL 150 mg 7 24 hr 00:00: tablet, 00 extended release Paxil 40 mg 2019-0 No 1mg tablet 7 00:00: 00 Paxil 10 mg 2019-0 No 1mg tablet 7 00:00: 00 Wellbutrin 2019-0 No 1mg XL 150 mg 09-10 24 hr 00:00: tablet, 00 extended release Paxil 40 mg 2019-0 No 1mg tablet 7 00:00: 00 Paxil 10 mg 2019-0 No 1mg tablet 7 00:00: 00 Wellbutrin 2019-0 No 1mg XL 150 mg 09-10 24 hr 00:00: tablet, 00 extended release Paxil 40 mg 2019-0 No 1mg tablet 09-10 00:00: 00 Paxil 10 mg 2019-0 No 1mg tablet 09-10 00:00: 00 Wellbutrin 2019-0 No 1mg XL 150 mg 09-10 24 hr 00:00: tablet, 00 extended release Paxil 40 mg 2019-0 No 1mg tablet 7 00:00: 00 Paxil 10 mg 2019-0 No 1mg tablet 7 00:00: 00 Wellbutrin 2019-0 No 1mg XL 150 mg 7 24 hr 00:00: tablet, 00 extended release [...] n 50 mg 6-18 capsule 00:00: 00 Famotidine Yes 20 mg = 1 Me moria 20 MG Oral 5-17 tab, PO, l Tablet 17:11: Daily, 0 [place] 00 Refill(s) 24 HR Yes 100 mg = 1 Memori a lamotrigine 5-17 tab, PO, l 100 MG 17:11: Daily, # [place] Extended 00 30 tab, 0 Release Refill(s) Enteric Coated Tablet [Lamictal] LaMICtal XR Yes 100 mg = 1 Memoria 100 mg oral 5-17 tab, PO, l tablet, 17:11: BID, # 30 [place] extended 00 tab, 0 release Refill(s) famotidine Yes 20 mg = 1 Me moria 20 mg oral 5-17 tab, PO, l tablet 17:11: Daily, 0 [place] 00 Refill(s) PARoxetine Yes 40 mg = 1 Me moria 40 mg oral 5-17 tab, PO, l tablet 17:11: Daily, # [place] 00 30 tab, 0 Refill(s) PARoxetine Yes 40 mg = 1 Me [...] PO, l 100 MG 17:11: Daily, # [place] Extended 00 30 tab, 0 Release Refill(s) Enteric Coated Tablet [Lamictal] PARoxetine Yes 40 mg = 1 Me moria 40 mg oral 5-17 tab, PO, l tablet 17:11: Daily, # [place] 00 30 tab, 0 Refill(s) Famotidine Yes 20 mg = 1 Me moria 20 MG Oral 5-17 tab, PO, l Tablet 17:11: Daily, 0 [place] 00 Refill(s) 24 HR Yes 100 mg = 1 Memori a lamotrigine 5-17 tab, PO, l 100 MG 17:11: Daily, # [place] Extended 00 30 tab, 0 Release Refill(s) Enteric Coated Tablet [Lamictal] LaMICtal XR Yes 100 mg = 1 Memoria 100 mg oral 5-17 tab, PO, l tablet, 17:11: BID, # 30 [place] extended 00 tab, 0 release Refill(s) famotidine Yes 20 mg = 1 Me moria 20 mg oral 5-17 tab, PO, l tablet 17:11: Daily, 0 [place] 00 Refill(s) Levetiracet Yes See Memori a am 500 MG 5-17 Instructio l Oral Tablet 16:28: ns, 1 tab H [place] 00 PO QAM, 2 tabs PO QPM, 0 Refill(s) 24 HR Yes 150 mg = 1 Memori a Bupropion 5-17 tab, PO, l Hydrochlori 16:28: Q24H, # 30 [place] de 150 MG 00 tab, 0 Extended Refill(s) Release Tablet lamotrigine Yes 200 mg = 1 Memoria 200 MG Oral 5-17 tab, PO, l Tablet 16:28: BID, # 180 [place] 00 tab, 0 Refill(s) amLODIPine 0 Yes 5 mg = 1 Mem oria 5 mg oral 5-17 tab, PO, l tablet 16:28: Daily, # [place] 00 90 tab, 0 Refill(s) levETIRAcet 2018-0 Yes 1,000 mg = Memoria am 500 mg 5-17 2 tab, PO, l oral tablet 16:28: BID, 0 Herm clarice 00 Refill(s) lamoTRIgine 2019- Yes 200 mg = 1 Memoria 200 mg oral 5-17 tab, PO, l tablet 16:28: BID, # 180 [place] 00 tab, 0 Refill(s) levothyroxi Yes 150 Memori a ne 150 mcg 5-17 microgram l (0.15 mg) 16:28: = 1 tab, Herm clarice oral tablet 00 PO, Daily, # 30 tab, 0 Refill(s) amLODIPine 2019 Yes 5 mg = 1 Mem oria [...] PO, l Hydrochlori 16:28: Q24H, # 30 [place] de 150 MG 00 tab, 0 Extended Refill(s) Release Tablet lamotrigine Yes 200 mg = 1 Memoria 200 MG Oral 5-17 tab, PO, l Tablet 16:28: BID, # 180 [place] 00 tab, 0 Refill(s) amLODIPine Yes 5 mg = 1 Mem oria 5 mg oral 5-17 tab, PO, l tablet 16:28: Daily, # [place] 00 90 tab, 0 Refill(s) Levetiracet Yes See Memori a am 500 MG 5-17 Instructio l Oral Tablet 16:28: ns, 1 tab H [place] 00 PO QAM, 2 tabs PO QPM, 0 Refill(s) levothyroxi 0 Yes 150 Memori a ne 150 mcg 5-17 microgram l (0.15 mg) 16:28: = 1 tab, Herm clarice oral tablet 00 PO, Daily, # 30 tab, 0 Refill(s) 24 HR 2019-0 Yes 150 mg = 1 Memori a Bupropion 5-17 tab, PO, l Hydrochlori 16:28: Q24H, # 30 [place] de 150 MG 00 tab, 0 Extended Refill(s) Release Tablet lamotrigine 2019-0 Yes 200 mg = 1 Memoria 200 MG Oral 5-17 tab, PO, l Tablet 16:28: BID, # 180 Evonne nn 00 tab, 0 Refill(s) levETIRAcet 2018-0 Yes 1,000 mg = Memoria am 500 mg 5-17 2 tab, PO, l oral tablet 16:28: BID, 0 Herm clarice 00 Refill(s) lamoTRIgine 2018-0 Yes 200 mg = 1 Memoria 200 mg oral 5-17 tab, PO, l tablet 16:28: BID, # 180 Evonne nn 00 tab, 0 Refill(s) famotidine 2018-0 No 1mg 20 mg 4-16 tablet 00:00: 00 Wellbutrin 2018-0 No 1mg XL 150 mg 416 24 hr 00:00: tablet, 00 extended release Paxil 40 mg 2019-0 No 1mg tablet 16 00:00: 00 Paxil 10 mg 2019-0 No 1mg tablet 16 00:00: 00 hydroxyzine 2019-0 No 1mg HCl 25 mg 4-16 tablet 00:00: 00 famotidine 2019-0 No 1mg 20 mg 4-16 tablet 00:00: 00 Wellbutrin 2019-0 No 1mg XL 150 mg 416 24 hr 00:00: tablet, 00 extended release Paxil 40 mg 2019-0 No 1mg tablet 16 00:00: 00 Paxil 10 mg 2019-0 No 1mg tablet 16 00:00: 00 hydroxyzine 2019-0 No 1mg HCl 25 mg 4-16 tablet 00:00: 00 famotidine 2019-0 No 1mg 20 mg 4-16 tablet 00:00: 00 Wellbutrin 2019-0 No 1mg XL 150 mg 416 24 hr 00:00: tablet, 00 extended release [...] 25 mg 4-16 tablet 00:00: 00 famotidine 2018-0 No 1mg 20 mg 4-16 tablet 00:00: 00 Wellbutrin 2018-0 No 1mg XL 150 mg 4-16 24 hr 00:00: tablet, 00 extended release Paxil 40 mg 2019-0 No 1mg tablet 4-16 00:00: 00 Paxil 10 mg 2019-0 No 1mg tablet 4-16 00:00: 00 hydroxyzine 2019-0 No 1mg HCl 25 mg 4-16 tablet 00:00: 00 Wellbutrin 2017-1 No 1mg XL [...] 2017-1 No 1mg tablet 2-27 00:00: 00 amlodipine 2017-1 No 1mg 5 mg tablet 2-27 00:00: 00 Pepcid 20 2017-1 No 1mg mg tablet 2-27 00:00: 00 Pepcid 20 2017- No 1mg mg tablet 2-27 00:00: 00 amoxicillin 2017- No 1mg 875 mg 2-27 tablet 00:00: [...] No 1mg tablet 2- 00:00: 00 amlodipine 2017- No 1mg 5 mg tablet 2-27 00:00: 00 Pepcid 20 2017- No 1mg mg tablet 2-27 00:00: 00 Pepcid 20 2017-03 No 1mg mg tablet 2- 00:00: 00 amoxicillin 2017- No 1mg 875 mg 2-27 tablet 00:00: [...] No 1mg tablet 2-27 00:00: 00 amlodipine 2017- No 1mg 5 mg tablet 2- 00:00: 00 Pepcid 20 2017-03 No 1mg mg tablet 2- 00:00: 00 Pepcid 20 2017-03 No 1mg mg tablet 2- 00:00: 00 amoxicillin 2017- No 1mg 875 mg 2-27 tablet 00:00: [...] 2017-03 No 1mg tablet 2- 00:00: 00 Wellbutrin 2017- No 1mg XL 150 mg 2-27 24 hr 00:00: tablet, 00 extended release lisinopril 2017-03 No 1mg 20 2-27 mg-hydrochl 00:00: orothiazide 00 12.5 mg tablet Paxil 40 mg 2017-03 No 1mg tablet 2- 00:00: 00 amlodipine 2017- No 1mg 5 mg tablet 2- 00:00: 00 Pepcid 20 2017-03 No 1mg mg tablet 2- 00:00: 00 Pepcid 20 2017-03 No 1mg mg tablet 2- 00:00: 00 amoxicillin 2017- No 1mg 875 mg 2-27 tablet 00:00: [...] 2017-03 No 1mg tablet 2- 00:00: 00 Wellbutrin 2017- No 1mg XL 150 mg 2-27 24 hr 00:00: tablet, 00 extended release lisinopril 2017-03 No 1mg 20 2-27 mg-hydrochl 00:00: orothiazide 00 12.5 mg tablet Paxil 40 mg 2017-03 No 1mg tablet 2- 00:00: 00 amlodipine 2017- No 1mg 5 mg tablet 2- 00:00: 00 Pepcid 20 2017-03 No 1mg mg tablet 2- 00:00: 00 Pepcid 20 2017-03 No 1mg mg tablet 2- 00:00: 00 amoxicillin 2017- No 1mg 875 mg 2-27 tablet 00:00: 00 Synthroid 2017- No 1mcg 150 mcg 2-27 tablet 00:00: 00 Synthroid 2017- No 1mcg 150 mcg 2- tablet 00:00: 00 Wellbutrin 2017-03 No 1mg XL 150 mg 2-27 24 hr 00:00: tablet, 00 extended release lisinopril 2017-03 No 1mg 20 2-27 mg-hydrochl 00:00: orothiazide 00 12.5 mg tablet Paxil 40 mg 2017-03 No 1mg tablet 2- 00:00: 00 Wellbutrin 2017-03 No 1mg XL 150 mg 2- 24 hr 00:00: tablet, 00 extended release lisinopril 2017-03 No 1mg 20 2-27 mg-hydrochl 00:00: orothiazide 00 12.5 mg tablet Paxil 40 mg 2017-03 No 1mg tablet 2- 00:00: 00 amlodipine 2017- No 1mg 5 mg tablet 2- 00:00: 00 Pepcid 20 2017-03 No 1mg mg tablet 2- 00:00: 00 Pepcid 20 2017-03 No 1mg mg tablet 2- 00:00: 00 amoxicillin 2017- No 1mg 875 mg 2-27 tablet 00:00: 00 Synthroid 2017- No 1mcg 150 mcg 2-27 tablet 00:00: 00 Synthroid 2017- No 1mcg 150 mcg 2-27 tablet 00:00: 00 Paxil 40 mg 0 No 1mg tablet 9 00:00: 00 lisinopril 2017-0 No 1mg 20 9-13 mg-hydrochl 00:00: orothiazide 00 12.5 mg tablet Wellbutrin 0 No 1mg XL 150 mg 9-13 24 hr 00:00: tablet, 00 extended release lisinopril 2018-0 No 1mg 20 9-13 mg-hydrochl 00:00: orothiazide 00 12.5 mg tablet Synthroid 2018-0 No 1mcg 150 mcg 9-13 tablet 00:00: 00 Paxil 40 mg 2018-0 No 1mg tablet 913 00:00: 00 lisinopril 2018-0 No 1mg 20 9-13 mg-hydrochl 00:00: orothiazide 00 12.5 mg tablet Wellbutrin 2018-0 No 1mg XL 150 mg 9-13 24 hr 00:00: tablet, 00 extended release lisinopril 2018-0 No 1mg 20 9-13 mg-hydrochl 00:00: orothiazide 00 12.5 mg tablet Synthroid 2018-0 No 1mcg 150 mcg 9-13 tablet 00:00: 00 Paxil 40 mg 2018-0 No 1mg tablet 913 00:00: 00 lisinopril 2018-0 No 1mg 20 9-13 mg-hydrochl 00:00: orothiazide 00 12.5 mg tablet Wellbutrin 2018-0 No 1mg XL 150 mg 9-13 24 hr 00:00: tablet, 00 extended release lisinopril 2018-0 No 1mg 20 9-13 mg-hydrochl 00:00: orothiazide 00 12.5 mg tablet Synthroid 2018-0 No 1mcg 150 mcg 9-13 tablet 00:00: 00 Paxil 40 mg 2018-0 No 1mg tablet 913 00:00: 00 lisinopril 2018-0 No 1mg 20 9-13 mg-hydrochl 00:00: orothiazide 00 12.5 mg tablet Wellbutrin 2018-0 No 1mg XL 150 mg 9-13 24 hr 00:00: tablet, 00 extended release lisinopril 2018-0 No 1mg 20 9-13 mg-hydrochl 00:00: orothiazide 00 12.5 mg tablet Paxil 40 mg 2018-0 No 1mg tablet 913 00:00: 00 lisinopril 2018-0 No 1mg 20 9-13 mg-hydrochl 00:00: orothiazide 00 12.5 mg tablet Wellbutrin 2018-0 No 1mg XL 150 mg 9-13 24 hr 00:00: tablet, 00 extended release lisinopril 2018-0 No 1mg 20 9-13 mg-hydrochl 00:00: orothiazide 00 12.5 mg tablet Synthroid 2018-0 No 1mcg 150 mcg 9-13 tablet 00:00: 00 Synthroid 2018-0 No 1mcg 150 mcg 9-13 tablet 00:00: 00 Paxil 40 mg 2018-0 No 1mg tablet 9-13 00:00: 00 lisinopril 2018-0 No 1mg 20 [...] Paxil 40 mg 2018-0 No 1mg tablet 5 00:00: 00 lisinopril 2018-0 No 1mg 20 [...] 1mcg 150 mcg 5-31 tablet 00:00: 00 Pepcid 20 2018-0 No [...] Immunizations Ordered Filled Immunization Date Status Comments [facility] Immunization Name Name SARS-COV-2 COVID-19 2021-03-11 Completed Unive rsity of MODERNA VACCINE 00:00:00 [facility] Moderna COVID-19 2020-05-22 Completed Vaccine 00:00:00 Moderna COVID-19 2020-05-22 Completed Vaccine 00:00:00 Moderna COVID-19 2020-05-22 Completed Vaccine 00:00:00 Moderna COVID-19 2020-05-22 Completed Vaccine 00:00:00 Moderna COVID-19 2020-05-22 Completed Vaccine 00:00:00 Moderna COVID-19 2020-05-22 Completed Vaccine 00:00:00 SARS-COV-2 COVID-19 2020-05-17 Completed Unive rsity of MODERNA VACCINE 00:00:00 [facility] SARS-COV-2 COVID-19 2020-05-17 Completed Unive rsity of MODERNA VACCINE 00:00:00 [facility] SARS-COV-2 COVID-19 2020-05-17 Completed Unive rsity of MODERNA VACCINE 00:00:00 [facility] SARS-COV-2 COVID-19 2020-04-23 Completed Unive rsity of MODERNA VACCINE 00:00:00 [facility] SARS-COV-2 COVID-19 2020-04-23 Completed Unive rsity of MODERNA VACCINE 00:00:00 [facility] SARS-COV-2 COVID-19 2020-04-23 Completed Unive rsity of MODERNA VACCINE 00:00:00 [facility] Moderna COVID-19 2020-04-16 Completed Vaccine 00:00:00 [...] 17:27:00 108 mm[Hg] Univer sity of pressure [facility] Diastolic blood 2020-05-11 17:27:00 77 mm[Hg] Unive rsity of pressure [facility] Heart rate 2020-05-11 17:27:00 80 /min [facility] Body temperature 2019-09-19 18:09:00 [facility] 2019-09-19 18:09:00 86.183 kg [facility] Systolic (mm Hg) 2022-01-31 14:13:00 Jose Daniel [facility] [place] Diastolic (mm Hg) 2022-01-31 14:13:00 [facility] [place] Heart Rate 2022-01-31 14:13:00 [facility] [place] Height 2022-01-31 14:13:00 5 [ft_i] [facility] [place] Weight 2022-01-31 14:13:00 [facility] BMI Calculated 2022-01-31 14:13:00 Swati al [place] BP Systolic 2022-01-19 08:56:00 102 mm[Hg] BP Diastolic 2022-01-19 08:56:00 68 mm[Hg] Weight Measured 2022-01-19 08:56:00 161.80 pounds Height Measured 2022-01-19 08:56:00 63.00 inches Body Temperature 2022-01-19 08:56:00 98.30 degrees Heart Rate 2022-01-19 08:56:00 65.00 /min Respiratory Rate 2022-01-19 08:56:00 18.00 /min Systolic (mm Hg) 2022-01-11 18:18:00 Jose Daniel [facility] [place] Diastolic (mm Hg) 2022-01-11 18:18:00 [facility] [place] Heart Rate 2022-01-11 18:18:00 [facility] [place] Height 2022-01-11 18:18:00 5 [ft_i] [facility] [place] Weight 2022-01-11 18:18:00 [facility] [place] BMI Calculated 2022-01-11 18:18:00 Swati al [place] BP Systolic 2021-12-19 17:05:00 BP Diastolic 2021-12-19 17:05:00 Weight Measured 2021-12-19 17:05:00 Height Measured 2021-12-19 17:05:00 63.00 inches Body Temperature 2021-12-19 17:05:00 Heart Rate 2021-12-19 17:05:00 Respiratory Rate 2021-12-19 17:05:00 BP Systolic 2021-12-19 16:54:00 120 mm[Hg] BP Diastolic 2021-12-19 16:54:00 81 mm[Hg] Weight Measured 2021-12-19 16:54:00 160.20 pounds Height Measured 2021-12-19 16:54:00 63.00 inches Body Temperature 2021-12-19 16:54:00 97.00 degrees Heart Rate 2021-12-19 16:54:00 60.00 /min Respiratory Rate 2021-12-19 16:54:00 24.00 /min BP Systolic 2021-11-29 09:10:00 BP Diastolic 2021-11-29 09:10:00 Weight Measured 2021-11-29 09:10:00 175.00 pounds Height Measured 2021-11-29 09:10:00 63.00 inches Body Temperature 2021-11-29 09:10:00 Heart Rate 2021-11-29 09:10:00 Respiratory Rate 2021-11-29 09:10:00 Heart Rate 2021-11-24 16:23:00 [facility] [place] Respitory Rate 2021-11-24 16:23:00 Swati Stewart Height 2021-11-24 16:23:00 [facility] 2021-11-24 16:23:00 [facility] BMI Calculated 2021-11-24 16:23:00 [facility] [place] Systolic (mm Hg) 2021-11-24 16:23:00 Jose Daniel yamini [place] Diastolic (mm Hg) 2021-11-24 16:23:00 [facility] [place] BP Systolic 2021-08-17 15:13:00 BP Diastolic 2021-08-17 [...] [facility] [place] Heart Rate 2021-01-27 15:19:00 [facility] [place] Respitory Rate 2021-01-27 15:19:00 [facility] [place] Height 2021-01-27 15:19:00 157.48 cm [facility] Weight 2021-01-27 15:19:00 [facility] [place] BMI Calculated 2021-01-27 15:19:00 [facility] [place] Respitory Rate 2020-12-16 15:25:00 [facility] [place] Height 2020-12-16 15:25:00 160.02 cm [facility] Weight 2020-12-16 15:25:00 [facility] [place] BMI Calculated 2020-12-16 15:25:00 [facility] [place] Systolic (mm Hg) 2020-12-16 15:25:00 Jose Daniel [facility] [place] Diastolic (mm Hg) 2020-12-16 15:25:00 [facility] [place] Heart Rate 2020-12-16 15:25:00 [facility] [place] BP Systolic 2020-10-26 13:29:00 136 mm[Hg] BP [...] Systolic (mm Hg) 2018-12-27 19:37:00 Jose Daniel [facility] [place] Diastolic (mm Hg) 2018-12-27 19:37:00 [facility] [place] Heart Rate 2018-12-27 19:37:00 [facility] [place] Respitory Rate 2018-12-27 19:37:00 Swati Stewart Height 2018-12-27 19:37:00 160.02 cm [facility] Weight 2018-12-27 19:37:00 [facility] [place] BMI Calculated 2018-12-27 19:37:00 [facility] [place] Weight 2018-07-26 16:21:00 Christine Newman Height 2018-07-26 16:21:00 157.48 cm [facility] [place] BMI Calculated 2018-07-26 16:21:00 Swati Stewart Heart Rate 2018-07-26 16:21:00 Christine Newman Respitory Rate 2018-07-26 16:21:00 Funmilayoolivia Griderann Systolic (mm Hg) 2018-07-26 16:21:00 Jose Daniel [place] Diastolic (mm Hg) 2018-07-26 16:21:00 [facility] [place] Procedures Procedure Date / Time Performing Clinician Source Performed REFERRAL- 2020-09-06 05:01:00 Doctor Unassigned, No [facility] REQUEST/RESPONSE Name [facility] EXTERNAL PROVIDER - ADC 2020-05-10 06:01:00 Doctor Unassigned, N o [facility] REFERRAL Name [facility] PATIENT QUESTIONNAIRE 2019-09-28 05:01:00 Doctor Unassigned, No [facility] XR SHOULDER 2+ VW LEFT 2019-09-19 18:04:00 Jing Szymanski [facility] Aneurysm clipping [facility] Evonne nn Plan of Care Planned Activity Planned Date Details Comments Source Goal Plan of Care Note [code = 07385-1] Goal Plan of Care Note [code = 10487-8] Goal Plan of Care Note [code = 19375-1] Goal Plan of Care Note [code = 58815-9] Goal Plan of Care Note [code = 88932-9] Goal Plan of Care Note [code = 92551-0] Goal Plan of Care Note [code = 54904-4] Goal Plan of Care Note [code = 71024-0] Goal Plan of Care Note [code = 92044-5] Goal Plan of Care Note [code = 27143-3] Goal Plan of Care Note [code = 51671-8] Goal Plan of Care Note [code = 62419-5] Goal Plan of Care Note [code = 24264-4] Goal Plan of Care Note [code = 43620-7] Goal Plan of Care Note [code = 74198-8] Goal Plan of Care Note [code = 16792-3] Goal Plan of Care Note [code = 00099-1] Goal Plan of Care Note [code = 24783-7] Goal Plan of Care Note [code = 66760-2] Goal Plan of Care Note [code = 69749-0] Goal Plan of Care Note [code = 89831-1] Goal Plan of Care Note [code = 54851-6] Goal Plan of Care Note [code = 08122-0] Goal Plan of Care Note [code = 90374-7] Goal Plan of Care Note [code = 82883-8] Goal Plan of Care Note [code = 02103-8] Goal Plan of Care Note [code = 46409-8] Goal Plan of Care Note [code = 45410-8] Goal Plan of Care Note [code = 98720-2] Goal Plan of Care Note [code = 79685-4] Goal Plan of Care Note [code = 92302-3] Goal Plan of Care Note [code = 33997-6] Goal Plan of Care Note [code = 72945-8] Goal Plan of Care Note [code = 45696-6] Goal Plan of Care Note [code = 07681-3] Goal Plan of Care Note [code = 07687-2] Goal Plan of Care Note [code = 58965-7] Goal Plan of Care Note [code = 40066-6] Goal Plan of Care Note [code = 19912-4] Goal Plan of Care Note [code = 26517-2] Goal Plan of Care Note [code = 86329-4] Goal Plan of Care Note [code = 70581-2] Goal Plan of Care Note [code = 76365-7] Goal Plan of Care Note [code = 93148-5] Goal Plan of Care Note [code = 23425-4] Goal Plan of Care Note [code = 74515-8] Goal Plan of Care Note [code = 92409-1] Goal Plan of Care Note [code = 07230-3] Goal Plan of Care Note [code = 59137-6] Goal Plan of Care Note [code = 23837-7] Goal Plan of Care Note [code = 01705-6] Goal Plan of Care Note [code = 75749-7] Goal Plan of Care Note [code = 37239-4] Goal Plan of Care Note [code = 81122-7] Goal Plan of Care Note [code = 27613-8] Goal Plan of Care Note [code = 75599-4] Goal Plan of Care Note [code = 29719-9] Goal Plan of Care Note [code = 14616-5] Goal Plan of Care Note [code = 33933-9] Goal Plan of Care Note [code = 84108-2] Goal Plan of Care Note [code = 05082-6] Goal Plan of Care Note [code = 38845-8] Goal Plan of Care Note [code = 00292-5] Goal Plan of Care Note [code = 37326-5] Goal Plan of Care Note [code = 96825-0] Goal Plan of Care Note [code = 88164-6] Goal Plan of Care Note [code = 19120-7] Goal Plan of Care Note [code = 68448-3] Goal Plan of Care Note [code = 75481-8] Goal Plan of Care Note [code = 42610-6] Goal Plan of Care Note [code = 64442-0] Goal Plan of Care Note [code = 50921-3] Goal Plan of Care Note [code = 90223-2] Goal Plan of Care Note [code = 09816-2] Goal Plan of Care Note [code = 98187-2] Goal Plan of Care Note [code = 47248-1] Goal Plan of Care Note [code = 99692-8] Goal Plan of Care Note [code = 67005-2] Goal Plan of Care Note [code = 81204-6] Goal Plan of Care Note [code = 84752-2] Goal Plan of Care Note [code = 56234-4] Goal Plan of Care Note [code = 87628-9] Goal Plan of Care Note [code = 58917-3] Goal Plan of Care Note [code = 44091-2] Goal Plan of Care Note [code = 72377-5] Goal Plan of Care Note [code = 19613-2] Goal Plan of Care Note [code = 07327-5] Goal Plan of Care Note [code = 70778-1] Goal Plan of Care Note [code = 73859-4] Goal Plan of Care Note [code = 69782-4] Goal Plan of Care Note [code = 27496-9] Goal Plan of Care Note [code = 18421-4] Goal Plan of Care Note [code = 97840-9] Goal Plan of Care Note [code = 89532-1] Goal Plan of Care Note [code = 65879-5] Goal Plan of Care Note [code = 78066-4] Goal Plan of Care Note [code = 47143-7] Goal Plan of Care Note [code = 77928-5] Goal Plan of Care Note [code = 09541-4] Goal Plan of Care Note [code = 59856-1] Goal Plan of Care Note [code = 52545-4] Goal Plan of Care Note [code = 17241-5] Goal Plan of Care Note [code = 09355-3] Goal Plan of Care Note [code = 92900-1] Goal Plan of Care Note [code = 10370-8] Goal Plan of Care Note [code = 65387-7] Goal Plan of Care Note [code = 59504-8] Goal Plan of Care Note [code = 71858-1] Goal Plan of Care Note [code = 29580-0] Goal Plan of Care Note [code = 82891-5] Goal Plan of Care Note [code = 96134-2] Goal Plan of Care Note [code = 03606-9] Goal Plan of Care Note [code = 31009-3] Goal Plan of Care Note [code = 22697-3] Goal Plan of Care Note [code = 95604-6] Goal Plan of Care Note [code = 06534-3] Goal Plan of Care Note [code = 87167-1] Goal Plan of Care Note [code = 31635-4] Goal Plan of Care Note [code = 15197-5] Goal Plan of Care Note [code = 06515-8] Goal Plan of Care Note [code = 42447-5] Goal Plan of Care Note [code = 98207-9] Goal Plan of Care Note [code = 61130-8] Goal Plan of Care Note [code = 68255-1] Goal Plan of Care Note [code = 11327-4] Goal Plan of Care Note [code = 03781-1] Goal Plan of Care Note [code = 85268-6] Goal Plan of Care Note [code = 48235-1] Goal Plan of Care Note [code = 12181-9] Goal Plan of Care Note [code = 49901-7] Goal Plan of Care Note [code = 31551-1] Goal Plan of Care Note [code = 33752-7] Goal Plan of Care Note [code = 74154-2] Goal Plan of Care Note [code = 20301-6] Goal Plan of Care Note [code = 43514-4] Goal Plan of Care Note [code = 83979-6] Goal Plan of Care Note [code = 06136-1] Goal Plan of Care Note [code = 32532-5] Goal Plan of Care Note [code = 29929-7] Goal Plan of Care Note [code = 15027-7] Goal Plan of Care Note [code = 14145-3] Goal Plan of Care Note [code = 56429-3] Goal Plan of Care Note [code = 60712-4] Goal Plan of Care Note [code = 63249-2] Goal Plan of Care Note [code = 54060-8] Goal Plan of Care Note [code = 13695-0] Goal Plan of Care Note [code = 05521-8] Goal Plan of Care Note [code = 81810-0] Goal Plan of Care Note [code = 02689-1] Goal Plan of Care Note [code = 52231-4] Goal Plan of Care Note [code = 39322-2] Goal Plan of Care Note [code = 22365-5] Goal Plan of Care Note [code = 71215-0] Goal Plan of Care Note [code = 62940-2] Goal Plan of Care Note [code = 75841-6] Goal Plan of Care Note [code = 39759-0] Goal Plan of Care Note [code = 74781-3] Goal Plan of Care Note [code = 89571-1] Goal Plan of Care Note [code = 48785-9] Goal Plan of Care Note [code = 93778-7] Goal Plan of Care Note [code = 54863-6] Goal Plan of Care Note [code = 08561-1] Goal Plan of Care Note [code = 47826-8] Goal Plan of Care Note [code = 53095-7] Goal Plan of Care Note [code = 98016-5] Goal Plan of Care Note [code = 59178-7] Goal Plan of Care Note [code = 87561-8] Goal Plan of Care Note [code = 57574-7] Goal Plan of Care Note [code = 90846-7] Goal Plan of Care Note [code = 52614-2] Goal Plan of Care Note [code = 53431-8] Goal Plan of Care Note [code = 41246-0] Goal Plan of Care Note [code = 52709-2] Goal Plan of Care Note [code = 34071-6] Goal Plan of Care Note [code = 87192-4] Goal Plan of Care Note [code = 50087-6] Goal Plan of Care Note [code = 14485-4] Goal Plan of Care Note [code = 11239-3] Goal Plan of Care Note [code = 50680-2] Goal Plan of Care Note [code = 87467-4] Goal Plan of Care Note [code = 44209-7] Goal Plan of Care Note [code = 03477-3] Goal Plan of Care Note [code = 92746-0] Goal Plan of Care Note [code = 94886-6] Goal Plan of Care Note [code = 32312-9] Goal Plan of Care Note [code = 19432-6] Goal Plan of Care Note [code = 55036-2] Goal Plan of Care Note [code = 62359-5] Goal Plan of Care Note [code = 34290-5] Goal Plan of Care Note [code = 17145-8] Goal Plan of Care Note [code = 22097-5] Goal Plan of Care Note [code = 27982-9] Goal Plan of Care Note [code = 13876-8] Goal Plan of Care Note [code = 02915-6] Goal Plan of Care Note [code = 27608-9] Goal Plan of Care Note [code = 22281-4] Goal Plan of Care Note [code = 51260-1] Goal Plan of Care Note [code = 06599-3] Goal Plan of Care Note [code = 83247-3] Goal Plan of Care Note [code = 25530-4] Goal Plan of Care Note [code = 10453-6] Goal Plan of Care Note [code = 43434-2] Goal Plan of Care Note [code = 69305-4] Goal Plan of Care Note [code = 04431-4] Goal Plan of Care Note [code = 73669-0] Goal Plan of Care Note [code = 27113-2] Goal Plan of Care Note [code = 46093-3] Goal Plan of Care Note [code = 14033-8] Goal Plan of Care Note [code = 86238-6] Goal Plan of Care Note [code = 82859-7] Goal Plan of Care Note [code = 57057-5] Goal Plan of Care Note [code = 60477-3] Goal Plan of Care Note [code = 83701-6] Goal Plan of Care Note [code = 82893-4] Goal Plan of Care Note [code = 31792-1] Goal Plan of Care Note [code = 94291-9] Goal Plan of Care Note [code = 25705-9] Goal Plan of Care Note [code = 16850-0] Goal Plan of Care Note [code = 01100-2] Goal Plan of Care Note [code = 00450-4] Goal Plan of Care Note [code = 93286-7] Goal Plan of Care Note [code = 80569-9] Goal Plan of Care Note [code = 00689-5] Goal Plan of Care Note [code = 63208-8] Goal Plan of Care Note [code = 49430-0] Goal Plan of Care Note [code = 86017-6] Goal Plan of Care Note [code = 60434-4] Goal Plan of Care Note [code = 11536-9] Goal Plan of Care Note [code = 16856-0] Goal Plan of Care Note [code = 74694-4] Goal Plan of Care Note [code = 56958-4] Goal Plan of Care Note [code = 30687-7] Goal Plan of Care Note [code = 27212-8] Goal Plan of Care Note [code = 90059-2] Goal Plan of Care Note [code = 46343-9] Goal Plan of Care Note [code = 09517-8] Goal Plan of Care Note [code = 84350-4] Goal Plan of Care Note [code = 41441-6] Goal Plan of Care Note [code = 94674-5] Goal Plan of Care Note [code = 31641-8] Goal Plan of Care Note [code = 45815-1] Goal Plan of Care Note [code = 08355-6] Goal Plan of Care Note [code = 98894-7] Goal Plan of Care Note [code = 96872-9] Goal Plan of Care Note [code = 00387-3] Goal Plan of Care Note [code = 85076-8] Goal Plan of Care Note [code = 64502-4] Goal Plan of Care Note [code = 97507-2] Goal Plan of Care Note [code = 89486-7] Goal Plan of Care Note [code = 48852-2] Goal Plan of Care Note [code = 15998-1] Goal Plan of Care Note [code = 23407-6] Goal Plan of Care Note [code = 44793-9] Goal Plan of Care Note [code = 08895-1] Goal Plan of Care Note [code = 90914-3] Goal Plan of Care Note [code = 59634-6] Goal Plan of Care Note [code = 55228-7] Goal Plan of Care Note [code = 82891-5] Goal Plan of Care Note [code = 83718-7] Goal Plan of Care Note [code = 75810-7] Goal Plan of Care Note [code = 96562-3] Goal Plan of Care Note [code = 22945-2] Goal Plan of Care Note [code = 98509-2] Goal Plan of Care Note [code = 25948-2] Goal Plan of Care Note [code = 04544-7] Goal Plan of Care Note [code = 83462-3] Goal Plan of Care Note [code = 07937-0] Goal Plan of Care Note [code = 59264-9] Goal Plan of Care Note [code = 10850-9] Goal Plan of Care Note [code = 74782-0] Goal Plan of Care Note [code = 28782-2] Goal Plan of Care Note [code = 58065-7] Goal Plan of Care Note [code = 64880-1] Goal Plan of Care Note [code = 50895-3] Goal Plan of Care Note [code = 65778-1] Goal Plan of Care Note [code = 88933-6] Goal Plan of Care Note [code = 54436-4] Goal Plan of Care Note [code = 71144-3] Goal Plan of Care Note [code = 85324-3] Goal Plan of Care Note [code = 42717-5] Goal Plan of Care Note [code = 67850-3] Goal Plan of Care Note [code = 46570-2] Goal Plan of Care Note [code = 05701-7] Goal Plan of Care Note [code = 98109-4] Goal Plan of Care Note [code = 53187-8] Goal Plan of Care Note [code = 14559-7] Goal Plan of Care Note [code = 59949-1] Goal Plan of Care Note [code = 22030-9] Goal Plan of Care Note [code = 10750-8] Goal Plan of Care Note [code = 99345-4] Goal Plan of Care Note [code = 27676-2] Goal Plan of Care Note [code = 14728-7] Encounters Start End Encounter Admission Attending Care Care Encounter Source Date/Time Date/Time Type Type Clinicians Facility Department ID 2022-05-03 2022-05-03 Outpatient [facility] [id number] [facility] 09:00:00 09:00:00 15 jeison Newman 2022-01-31 2022-02-01 Outpatient [facility]IE MNA [id number] [facility] 14:15:00 05:59:59 Neurology 14 jeison Yatessony Quevedoann 2022-01-31 2022-01-31 [id number] 08:15:00 23:59:59 Markos 14 Stuart 2022-01-31 2022-01-31 Outpatient [facility]IE MHIE [id number] [facility] 08:15:00 08:15:00 14 jeison Newman 2022-01-31 2022-01-31 Outpatient [facility]IE [facility]IE [id number] [facility] 08:15:00 08:15:00 14 jeison Newman 2022-01-19 2022-01-19 Outpatient SFA SFA [id number] Mani 08:40:07 08:40:07 1110 F Homero 2022-01-19 2022-01-19 Outpatient sr90goli- [id number] 00:00:00 00:00:00 Visit [id number] -[id number] ebcde0 2022-01-11 2022-01-12 Outpatient nullFlavo MNA [id number] Memoria 18:15:00 04:59:59 r Neurology 13 l Lyndsey Quevedoann 2022-01-11 2022-01-12 Outpatient nullFlavo MNA [id number] Memoria 18:15:00 04:59:59 r Neurology 13 l Lyndsey Newman 2022-01-11 2022-01-11 [id number] 13:15:00 23:59:59 Markos 13 Stuart 2022-01-11 2022-01-11 Outpatient MHIE MHIE [id number] Memoria 13:15:00 13:15:00 13 jeison Trent 2021-12-20 2021-12-20 Outpatient SFA SFA [id number] Mani 10:20:54 10:20:54 1011 F Homero 2021-12-19 2021-12-19 Outpatient SFA SFA [id number] Mani 16:52:40 16:52:40 1010 F Homero 2021-12-19 2021-12-19 Outpatient [id number] 00:00:00 00:00:00 Visit o190-28vc 770-46ea-a -n8ij-8r7 0ff-2b8c45 [id number] [id number] 2021-11-29 2021-11-29 Outpatient [id number] 00:00:00 00:00:00 Visit 1p3j-1052 v5u-8104-4 -8240-dd2 240-dd2b7c [id number] w27512 2021-11-26 2021-11-26 Outpatient [id number] [id number] 00:00:00 00:00:00 Visit 913a-41dd 13a-41dd-b -f0l1-0y6 6a5-8t6g8j g3ab3128j x5579u 2021-11-24 2021-11-25 Outpatient nullFlavo MNA [id number] Memoria 16:00:00 04:59:59 r Neurology 12 l Yates Trent 2021-11-24 2021-11-25 Outpatient nullFlavo MNA [id number] Memoria 16:00:00 04:59:59 r Neurology 12 l Lyndsey Newman 2021-11-24 2021-11-24 Outpatient DAVID MackaySCHDEAN [id number] 11:00:00 23:59:59 Markos Theresa Stuart 2021-11-24 2021-11-24 Outpatient MHIE MHIE [id number] Memoria 11:00:00 11:00:00 12 jeison Newman 2021-11-18 2021-11-18 Outpatient [id number] 00:00:00 00:00:00 Visit bddf-439d ddf-439d-9 -93af-5e7 3af-5e629k 48n2g2ne4 5b9ea2 2021-10-11 2021-10-11 Outpatient [id number]-4 00:00:00 00:00:00 Visit 3q13-1937 p66-8458-1 -8617-b46 617-b468fa 9bj42w6fu 38d1ce 2021-09-28 2021-09-28 Ambulatory nullFlavo MNA [id number] Memoria 18:30:00 18:30:00 Pre-Reg r Neurology 11 l Lyndsey [place] 2021-09-28 2021-09-28 Ambulatory nullFlavo MNA [id number] Memoria 18:30:00 18:30:00 Pre-Reg r Neurology 11 l Lyndsey Newman 2021-09-28 2021-09-28 Outpatient MHIE MHIE [id number] Memoria 13:30:00 13:30:00 11 jeison Trent 2021-09-28 2021-09-28 Outpatient DAVID Mackay [facility]ER [id number] 13:30:00 13:30:00 Markos Chelsie Stuart 2021-07-28 2021-07-28 Case LeathabeatrizYINKA 1.2.840.114 [id number] Univers 00:00:00 00:00:00 Management Ting YOUNG 350.1.13.10 it[place] [id number] [facility] [address] 2021-06-29 2021-06-30 Outpatient nullFlavo MNA [id number] Memoria 20:15:00 04:59:59 r Neurology 10 l Yates Trent 2021-06-29 2021-06-30 Outpatient nullFlavo MNA [id number] Memoria 20:15:00 04:59:59 r Neurology 10 l Lyndsey Newman 2021-06-29 2021-06-29 Outpatient Krell, [facility] [id number] 15:15:00 23:59:59 Markos 10 Stuart 2021-06-29 2021-06-29 Outpatient MHIE MHIE [id number] Memoria 15:15:00 15:15:00 10 jeison Newman 2021-04-28 2021-04-29 Outpatient nullFlavo MNA [id number] Memoria 16:00:00 05:59:59 r Neurology 08 l Lyndsey Newman 2021-04-28 2021-04-29 Outpatient nullFlavo MNA [id number] Memoria 16:00:00 05:59:59 r Neurology 08 l Lyndsey Newman 2021-04-28 2021-04-28 Outpatient [facility] [id number] 10:00:00 23:59:59 Markos 08 Stuart 2021-04-28 2021-04-28 Outpatient MHIE MHIE [id number] Memoria 10:00:00 10:00:00 08 jeison Newman 2021-03-16 2021-03-16 Ambulatory nullFlavo MNA [id number] Memoria 17:45:00 17:45:00 Pre-Reg r Neurology 09 l Lyndsey Quevedoann 2021-03-16 2021-03-16 Ambulatory nullFlavo MNA [id number] Memoria 17:45:00 17:45:00 Pre-Reg r Neurology 09 l Lyndsey Newman 2021-03-16 2021-03-16 Outpatient MHIE MHIE [id number] Memoria 11:45:00 11:45:00 09 jeison Newman 2021-03-16 2021-03-16 [facility] [id number] 11:45:00 11:45:00 Markos 09 Stuart 2021-02-08 2021-02-08 Outpatient R LILIA, [facility] [id number] Univers 14:00:00 14:00:00 DELORES bourgeois [facility] 2021-01-27 2021-01-28 Outpatient nullFlavo MNA [id number] Memoria 15:15:00 05:59:59 r Neurology 07 l Lyndsey Quevedoann 2021-01-27 2021-01-28 Outpatient nullFlavo MNA [id number] Memoria 15:15:00 05:59:59 r Neurology 07 l Yates [place] 2021-01-27 2021-01-27 Outpatient DAVID Mackay [facility] [id number] 09:15:00 23:59:59 Markos 07 [place] 2021-01-27 2021-01-27 Outpatient MHIE IE [id number] Memoria 09:15:00 09:15:00 07 [facility] 2020-12-31 2021-01-01 Outpatient nullFlavo [facility] [id number] Memoria 12:15:00 04:59:00 r [place] 00 [facility] 2020-12-31 2021-01-01 Outpatient nullFlavo [facility] [id number] Memoria 12:15:00 04:59:00 r [place] 00 [facility] 2020-12-31 2020-12-31 Outpatient Claire [facility] [id number] 07:15:00 23:59:00 Markos 00 [place] 2020-12-31 2020-12-31 Outpatient CLAIRE [facility] 7500 [facility] 07:15:00 23:59:00 MARKOS 2020-12-16 2020-12-17 [place] [id number] Memoria 15:30:00 04:59:59 r Neurology 06 l Yates [place] 2020-12-16 2020-12-17 [place] [id number] Memoria 15:30:00 04:59:59 r Neurology 06 l Yates [place] 2020-12-16 2020-12-16 Outpatient DAVID Mackay [facility] [id number] 10:30:00 23:59:59 Markos 06 Stuart 2020-12-16 2020-12-16 Outpatient MHIE IE [id number] Memoria 10:30:00 10:30:00 06 [facility] 2020-09-06 2020-09-06 Orders Doctor MARRY 1.2.840.114 [id number] Univers 00:00:00 00:00:00 Only Unassigned, CHRISTEN 350.1.13.10 ity of [place] [facility] 4.2.7.2.686 [place] [phone] [address] 2020-07-29 2020-07-29 Telephone Mirella Gurrola 1.2.840.114 [id number] Univers 00:00:00 00:00:00 , Nika Young 350.1.13.10 [place] [phone] [place] [id number] [place] 2020-06-11 2020-06-11 [facility] [id number] Univers 14:00:00 14:00:00 SENDIL ity [facility] 2020-06-08 2020-06-08 Outpatient R DAISY [facility] [id number] Univers 08:00:00 08:00:00 SENDIL ity [facility] 2020-05-20 2020-05-20 [facility] [id number] Univers 08:30:00 08:30:00 [facility] 2020-05-11 [facility] 1.2.840.114 [id number] Univers 10:30:24 11:56:39 Visit Sendil Mariam Gl[place] 350.1.13.10 [place] [phone] [place] [id number] [facility] 2020-05-11 2020-05-11 Out[facility] [id number] Univers 10:30:00 10:30:00 SENDIL ity [facility] 2020-05-10 2020-05-10 Orders Doctor MARRY 1.2.840.114 [id number] Univers 00:00:00 00:00:00 Only Unassigned, CHRISTEN 350.1.13.10 ity of [place] [facility] 4.2.7.2.686 [place] [phone] [address] 2019-12-17 2019-12-17 Outpatient R YENNIFER [facility] [id number] Univers 08:20:00 08:20:00 ALLEN ity [facility] 2019-12-03 2019-12-03 Ancillary Ольга Daniels [facility] 1. 2.840.114 [id number] Univers 08:19:20 08:59:20 Visit Allen Solorio PRIMARY 350.1.13.10 [id number] [phone] [place] maco 179 [place] 2019-11-26 2019-11-26 [facility] 1.2.840.114 [id number] Univers 00:00:00 00:00:00 Management Ijeoma PRIMARY 350.1.13.10 [id number] [id number] [place] maco 179 [place] 2019-11-20 2019-11-20 Ancillary Ijeoma Retana [facility] 1.2.840.1 [id number] Univers 08:20:47 09:00:47 Visit Allen Solorio PRIMARY 350.1.13.10 [id number] [phone] [facility] 179 [place] 2019-11-20 2019-11-20 Outpatient Rene [facility] [id number] Univers 08:20:00 08:20:00 ALLEN itjarocho [facility] 2019-11-13 2019-11-13 [facility] 1.2.840.114 [id number] Univers 00:00:00 00:00:00 Management Ijeoma PRIMARY 350.1.13.10 [id number] [phone] [place] n[place]ar[place] 179 [place] 2019-11-04 2019-11-04 Ancillary Ольга Daniels [facility] 1. 2.840.114 [id number] Univers 08:57:57 09:57:57 Visit Allen Solorio PRIMARY 350.1.13.10 [id number] [phone] [facility] 179 [place] 2019-11-04 2019-11-04 Outpatient R[facility] [id number] Univers 09:00:00 09:00:00 ALLEN ity [facility] 2019-09-28 2019-09-28 Orders Doctor TUTTLE 1.2.840.114 [id number] Univers 00:00:00 00:00:00 Only Unassigned, CHRISTEN 350.1.13.10 it[place] [facility] 4.2.7.2.686 [place] [phone] [facility] kaushik 009 [place] 2019-09-26 2019-09-26 Letter Therapy-Wal [facility] 1.2.840.114 [id number] Univers 00:00:00 00:00:00 (Out) kin, PRIMARY 350.1.13.10 it y of Pcp-Phys CARE 4.2.7.2.686 [place] PAVILLION [phone] N[place] dical 179 [place] 2019-09-19 2019-09-19 Hospital [facility] 1.2.840.114 [id number] Univers 12:54:00 23:59:00 Encounter Jing PRIMARY 350.1.13.10 [place] [id number] [place] dical 807 [place] 2019-09-19 2019-09-19 Office [facility] 1.2.885.873 [id number] Univers 12:41:50 13:01:50 Visit Jing PRIMARY 350.1.13.10 it [place] [phone] N[place] dical 198 [place] 2019-09-19 2019-09-19 Outpatient R [facility] [id number] Univers 13:00:00 13:00:00 JING ity of [facility] 2019-06-04 2019-06-04 Ambulatory nullFlavo MNA [id number] Memoria 18:30:00 18:30:00 Pre-Reg r Neurology 05 l [facility] 2019-06-04 2019-06-04 Ambulatory nullFlavo MNA [id number] Memoria 18:30:00 18:30:00 Pre-Reg r Neurology 05 l [facility] 2019-06-04 2019-06-04 Outpatient MHIE MHIE [id number] Memoria 13:30:00 13:30:00 05 l [place] 2019-06-04 2019-06-04 [facility]patient [id number] 13:30:00 13:30:00 Markos 05 [place] 2019-03-28 2019-03-28 Ambulatory nullFlavo MNA [id number] Memoria 20:00:00 20:00:00 Pre-Reg r Neurology 04 l Lyndsey Newman 2019-03-28 2019-03-28 Ambulatory nullFlavo MNA [id number] Memoria 20:00:00 20:00:00 Pre-Reg r Neurology 04 l Lyndsey Newman 2019-03-28 2019-03-28 Outpatient MHIE MHIE [id number] Memoria 14:00:00 14:00:00 04 jeison Newman 2019-03-28 2019-03-28 Outpatient Claire MISCHER MHMISCHER [id number] 14:00:00 14:00:00 Markos 04 [place] 2018-12-27 2018-12-28 Outpatient nullFlavo MNA [id number] Memoria 19:45:00 04:59:59 r Neurology 03 jeison Newman 2018-12-27 2018-12-28 Outpatient nullFlavo MNA [id number] Memoria 19:45:00 04:59:59 r Neurology 03 jeison Newman 2018-12-27 2018-12-27 Outpatient [facility] [id number] 14:45:00 23:59:59 Markos Victoriano Davidson 2018-12-27 2018-12-27 Outpatient MHIE MHIE [id number] Memoria 14:45:00 14:45:00 03 jeison Newman 2018-11-15 2018-11-16 Outpatient nullFlavo MNA [id number] Memoria 20:00:00 04:59:59 r Neurology 02 jeison Newman 2018-11-15 2018-11-16 Outpatient nullFlavo MNA [id number] Memoria 20:00:00 04:59:59 r Neurology 02 jeison Yatessony Quevedoann 2018-11-15 2018-11-15 Outpatient MARCO A MackayMISCHER MHMISCHER [id number] 15:00:00 23:59:59 Markos Neena Davidson 2018-11-15 2018-11-15 Outpatient MHIE MHIE [id number] Memoria 15:00:00 15:00:00 02 jeison Trent 2018-11-07 2018-11-07 Outpatient MHIE MHIE [id number] Memoria 13:15:00 13:15:00 01 l Trent 2018-11-07 2018-11-07 Outpatient MARCO AIE KALINA [id number] Memoria 13:15:00 13:15:00 01 l Trent 2018-07-26 2018-07-27 Outpatient nullFlavo MNA [id number] Memoria 16:30:00 04:59:59 r Neurology 00 l Lyndsey Newman 2018-07-26 2018-07-27 Outpatient nullFlavo MNA [id number] Memoria 16:30:00 04:59:59 r Neurology 00 l Lyndsey Newman 2018-07-26 2018-07-26 Outpatient Claire [facility] [id number] 11:30:00 23:59:59 Markos 00 [place] 2018-07-26 2018-07-26 Outpatient KALINA GILMAN [id number] Memoria 11:30:00 11:30:00 00 jeison Newman Results Test Description Test Time Test Comments Results Result Comments Source TSH, THIRD GENERATION 2021-12-21 03:58:08 Test Item Value Reference Range Interpretation Comme nts TSH, THIRD GENERATION (test 57.700 UIU/ML 0.400-4.100 H UNLESS OTHERWISE INDICATED, code = 2821) ALL TESTING PER [facility], [place] [id number] RELIABILITY TECHNICIANS: Zoey VENEGAS [id number] [facility] [place]. [id number] COMPREHENSIVE METABOLIC [id number] 03:01:08 Test Item Value Reference Range Interpretation Comments GLUCOSE (test code = 74 MG/DL 70-99 2216) BUN (test code = 10 MG/DL -2207) CREATININE (test 1.07 MG/DL 0.60-1.30 code = 2214) eGFR (2020 CKD-EPI) 60 ML/MIN/1.73 >60 L (test code = 31220) CALC BUN/CREAT (test 9 RATIO - code = 2235) SODIUM (test code = 146 MEQ/L 137-337 2392) POTASSIUM (test code 3.7 MEQ/L 3.5-5.4 = 2228) CHLORIDE (test code 106 MEQ/L 95-107 = 2215) CARBON DIOXIDE (test 31 MEQ/L 19-31 code = 2206) CALCIUM (test code = 9.6 MG/DL 8.5-10.5 2208) PROTEIN, TOTAL (test 6.0 G/DL 6.1-8.3 L code = 2229) ALBUMIN (test code = 4.2 G/DL 3.5-5.2 2200) CALC GLOBULIN (test 1.8 G/DL 1.9-3.7 L code = 2240) CALC A/G RATIO (test 2.3 RATIO 1.0-2.6 code = 2234) BILIRUBIN, TOTAL 0.4 MG/DL See_Comment [Automated message] (test code = 220) The syste m which generated this result transmit sonia reference range : <=1.2. The refe rence range was not u sed to interpret th is result as normal/abnormal . ALKALINE PHOSPHATASE 85 U/L 40-136 (test code = 2204) AST (test code = 27 U/L 9-40 2217) ALT (test code = 18 U/L 5-40 2218) LIPID [id number] 03:01:08 Test Item Value Reference Range Interpretation Comments CHOLESTEROL (test 193 MG/DL <200 code = 2210) TRIGLYCERIDES (test 122 MG/DL <150 code = 2232) HDL CHOLESTEROL (test 54 MG/DL >39 code = 2220) CALC LDL CHOL (test 116 MG/DL <100 H NOTE: C ALCULATED LDL code = 2237) IS BASED ON KATIA-JACKSON METHOD WHICHINCLUDES ADJUSTABLE TRIGLYCERIDE:VL DL CHOLESTEROL RAT IO.THIS FACTOR VARIES B Y MEASURED TRIGLY CERIDE AND NON-HDLCHOL ESTEROL CONCENTRATIONS WITH INCREASED CALCU LATED LDL SEENIN HIGH ER TRIGLYCERIDE OR LOWER NON-HDL SPECIME NS. FOR MOREINFORMATION , SEE CLIENT ANNOUNCE MENT AT [email or web address] RISK RATIO LDL/HDL 2.15 RATIO <3.22 (test code = 2238) HEMOGLOBIN [id number] 02:08:41 Test Item Value Reference Range Interpretation Comments HEMOGLOBIN A1c (test code = 45079) 5.1 % 4.2-5.6 COMPREHENSIVE METABOLIC [id number] 00:00:00 Test Item Value Reference Range Interpretation Comments GLUCOSE (test code = 2217) 74 MG/DL BUN (test code = 2208) 10 MG/DL CREATININE (test code = 2214) 1.07 MG/DL eGFR (2020 CKD-EPI) (test code 60 ML/MIN/1.73 = 13022) CALC BUN/CREAT (test code = 9 RATIO 2235) SODIUM (test code = 2231) 146 MEQ/L POTASSIUM (test code = 2228) 3.7 MEQ/L CHLORIDE (test code = 2215) 106 MEQ/L CARBON DIOXIDE (test code = 31 MEQ/L 2205) CALCIUM (test code = 2209) 9.6 MG/DL PROTEIN, TOTAL (test code = 6.0 G/DL 2228) ALBUMIN (test code = 220) 4.2 G/DL CALC GLOBULIN (test code = 1.8 G/DL 2239) CALC A/G RATIO (test code = 2.3 RATIO 2233) BILIRUBIN, TOTAL (test code = 0.4 MG/DL 2206) ALKALINE PHOSPHATASE (test 85 U/L code = 2204) AST (test code = 2218) 27 U/L ALT (test code = 2219) 18 U/L LIPID [id number] 00:00:00 Test Item Value Reference Range Interpretation Comments CHOLESTEROL (test code = 2210) 193 MG/DL TRIGLYCERIDES (test code = 2232) 122 MG/DL HDL CHOLESTEROL (test code = 2220) 54 MG/DL CALC LDL CHOL (test code = 2237) 116 MG/DL RISK RATIO LDL/HDL (test code = 2.15 RATIO 2238) LIPID [id number] 00:00:00 Test Item Value Reference Range Interpretation Comments CHOLESTEROL (test code = 2210) 193 MG/DL TRIGLYCERIDES (test code = 2232) 122 MG/DL HDL CHOLESTEROL (test code = 2220) 54 MG/DL CALC LDL CHOL (test code = 2237) 116 MG/DL RISK RATIO LDL/HDL (test code = 2.15 RATIO 2238) HEMOGLOBIN [id number] 00:00:00 Test Item Value Reference Range Interpretation Comments HEMOGLOBIN A1c (test code = 60413) 5.1 % HEMOGLOBIN [id number] 00:00:00 Test Item Value Reference Range Interpretation Comments HEMOGLOBIN A1c (test code = 36207) 5.1 % HEMOGLOBIN [id number] 00:00:00 Test Item Value Reference Range Interpretation Comments HEMOGLOBIN A1c (test code = 25553) 5.1 % TSH, THIRD [id number] 00:00:00 Test Item Value Reference Range Interpretation Comments TSH, THIRD GENERATION (test 57.700 UIU/ML code = 2821) TSH, THIRD [id number] 00:00:00 Test Item Value Reference Range Interpretation Comments TSH, THIRD GENERATION (test 57.700 UIU/ML code = 2821) TSH, THIRD [id number] 00:00:00 Test Item Value Reference Range Interpretation Comments TSH, THIRD GENERATION (test 57.700 UIU/ML code = 2821) COMPREHENSIVE METABOLIC [id number] 00:00:00 Test Item Value Reference Range Interpretation Comments GLUCOSE (test code = 2217) 74 MG/DL BUN (test code = 2208) 10 MG/DL CREATININE (test code = 2214) 1.07 MG/DL eGFR (2020 CKD-EPI) (test code 60 ML/MIN/1.73 = 15520) CALC BUN/CREAT (test code = 9 RATIO 2235) SODIUM (test code = 2231) 146 MEQ/L POTASSIUM (test code = 2228) 3.7 MEQ/L CHLORIDE (test code = 2215) 106 MEQ/L CARBON DIOXIDE (test code = 31 MEQ/L 2205) CALCIUM (test code = 2209) 9.6 MG/DL PROTEIN, TOTAL (test code = 6.0 G/DL 2228) ALBUMIN (test code = 2201) 4.2 G/DL CALC GLOBULIN (test code = 1.8 G/DL 2240) CALC A/G RATIO (test code = 2.3 RATIO 2234) BILIRUBIN, TOTAL (test code = 0.4 MG/DL 2206) ALKALINE PHOSPHATASE (test 85 U/L code = 2204) AST (test code = 2218) 27 U/L ALT (test code = 2219) 18 U/L COMPREHENSIVE METABOLIC [id number] 00:00:00 Test Item Value Reference Range Interpretation Comments GLUCOSE (test code = 2217) 74 MG/DL BUN (test code = 2208) 10 MG/DL CREATININE (test code = 2214) 1.07 MG/DL eGFR (2020 CKD-EPI) (test code 60 ML/MIN/1.73 = 59013) CALC BUN/CREAT (test code = 9 RATIO 2235) SODIUM (test code = 2231) 146 MEQ/L POTASSIUM (test code = 2228) 3.7 MEQ/L CHLORIDE (test code = 2215) 106 MEQ/L CARBON DIOXIDE (test code = 31 MEQ/L 2205) CALCIUM (test code = 2209) 9.6 MG/DL PROTEIN, TOTAL (test code = 6.0 G/DL 2228) ALBUMIN (test code = 2201) 4.2 G/DL CALC GLOBULIN (test code = 1.8 G/DL 2239) CALC A/G RATIO (test code = 2.3 RATIO 2234) BILIRUBIN, TOTAL (test code = 0.4 MG/DL 2206) ALKALINE PHOSPHATASE (test 85 U/L code = 2204) AST (test code = 2218) 27 U/L ALT (test code = 2219) 18 U/L LIPID [id number] 00:00:00 Test Item Value Reference Range Interpretation Comments CHOLESTEROL (test code = 2210) 193 MG/DL TRIGLYCERIDES (test code = 2232) 122 MG/DL HDL CHOLESTEROL (test code = 2220) 54 MG/DL CALC LDL CHOL (test code = 2237) 116 MG/DL RISK RATIO LDL/HDL (test code = 2.15 RATIO 2238) LIPID [id number] 00:00:00 Test Item Value Reference Range Interpretation Comments CHOLESTEROL (test code = 2210) 193 MG/DL TRIGLYCERIDES (test code = 2232) 122 MG/DL HDL CHOLESTEROL (test code = 2220) 54 MG/DL CALC LDL CHOL (test code = 2237) 116 MG/DL RISK RATIO LDL/HDL (test code = 2.15 RATIO 2238) HEMOGLOBIN [id number] 00:00:00 Test Item Value Reference Range Interpretation Comments HEMOGLOBIN A1c (test code = 96366) 5.1 % HEMOGLOBIN [id number] 00:00:00 Test Item Value Reference Range Interpretation Comments HEMOGLOBIN A1c (test code = 31669) 5.1 % HEMOGLOBIN [id number] 00:00:00 Test Item Value Reference Range Interpretation Comments HEMOGLOBIN A1c (test code = 33631) 5.1 % TSH, THIRD [id number] 00:00:00 Test Item Value Reference Range Interpretation Comments TSH, THIRD GENERATION (test 57.700 UIU/ML code = 2821) TSH, THIRD [id number] 00:00:00 Test Item Value Reference Range Interpretation Comments TSH, THIRD GENERATION (test 57.700 UIU/ML code = 2821) TSH, THIRD [id number] 00:00:00 Test Item Value Reference Range Interpretation Comments TSH, THIRD GENERATION (test 57.700 UIU/ML code = 2821) COMPREHENSIVE METABOLIC [id number] 00:00:00 Test Item Value Reference Range Interpretation Comments GLUCOSE (test code = 2217) 74 MG/DL BUN (test code = 2208) 10 MG/DL CREATININE (test code = 2214) 1.07 MG/DL eGFR (2020 CKD-EPI) (test code 60 ML/MIN/1.73 = 01200) CALC BUN/CREAT (test code = 9 RATIO 5) SODIUM (test code = 2231) 146 MEQ/L POTASSIUM (test code = 2228) 3.7 MEQ/L CHLORIDE (test code = 2215) 106 MEQ/L CARBON DIOXIDE (test code = 31 MEQ/L 2205) CALCIUM (test code = 2209) 9.6 MG/DL PROTEIN, TOTAL (test code = 6.0 G/DL 2228) ALBUMIN (test code = 2201) 4.2 G/DL CALC GLOBULIN (test code = 1.8 G/DL 2239) CALC A/G RATIO (test code = 2.3 RATIO 2233) BILIRUBIN, TOTAL (test code = 0.4 MG/DL 2206) ALKALINE PHOSPHATASE (test 85 U/L code = 2204) AST (test code = 2218) 27 U/L ALT (test code = 2219) 18 U/L TSH, THIRD [id number] 06:59:46 Test Item Value Reference Range Interpretation Comments TSH, THIRD GENERATION (test code 0.070 UIU/ML 0.400-4.100 L = 2821) VITAMIN B 12 AND FOLIC [id number] 06:59:46 Test Item Value Reference Range Interpretation Comments VITAMIN B-12 (test 689 PG/ML 200-950 code = 2840) FOLIC ACID (test >20.0 UG/L SEE BELOW INTE RPRETIVE code = 2693) RANGES DE FICIENCY . . . . . . . . . . . . . . . UG/L <4.0 POSSIBLE DEFICI ENCY. . . . . . . . . . . UG/L 4.0-5.9 SUFFICI ENT . . . . . . . . . . . . . . . UG/L >=6.0 UNLE SS OTHERWISE INDIC ATED, ALL TESTING PERFORM [facility] [address] [place] [address] LABORATORY DIRE CTOR: SAGE SANTANA M.D. CLIA NUMBER [id number] [facility] [place]. [id number] VITAMIN D, 25 [id number] 06:44:37 Test Item Value Reference Range Interpretation Comments VITAMIN D, 25 OH 59 NG/ML SEE BELOW NOTE: 25-H YDROXYVITAMIN D (test code = 4958) ASSAY INC LUDES 25-HYDROXYVITAM IN D2 AND D3. METHODOLOGY IS CHEMILUMINESCEN T IMMUNOASSAY. * INTERPRETIVE RA NGES PEDIATRIC (<17 YEARS) . [...] . . . . NG/ML 30-100 HEMOGLOBIN [id number] 06:07:46 Test Item Value Reference Range Interpretation Comments HEMOGLOBIN A1c (test code = 61447) 5.4 % 4.2-5.6 HEMOGLOBIN [id number] 00:00:00 Test Item Value Reference Range Interpretation Comments HEMOGLOBIN A1c (test code = 31377) 5.4 % [id number] 00:00:00 Test Item Value Reference Range Interpretation Comments TSH, THIRD GENERATION (test code 0.070 UIU/ML = 2821) [id number] 00:00:00 Test Item Value Reference Range Interpretation Comments TSH, THIRD GENERATION (test code 0.070 UIU/ML = 2821) [id number] 00:00:00 Test Item Value Reference Range Interpretation Comments TSH, THIRD GENERATION (test code 0.070 UIU/ML = 2821) VITAMIN D, 25 [id number] 00:00:00 Test Item Value Reference Range Interpretation Comments VITAMIN D, 25 OH (test code = 4958) 59 NG/ML VITAMIN D, 25 [id number] 00:00:00 Test Item Value Reference Range Interpretation Comments VITAMIN D, 25 OH (test code = 4958) 59 NG/ML VITAMIN B 12 AND FOLIC [id number] 00:00:00 Test Item Value Reference Range Interpretation Comments VITAMIN B-12 (test code = 2840) 689 PG/ML FOLIC ACID (test code = 2695) >20.0 UG/L VITAMIN B 12 AND FOLIC [id number] 00:00:00 Test Item Value Reference Range Interpretation Comments VITAMIN B-12 (test code = 2840) 689 PG/ML FOLIC ACID (test code = 2695) >20.0 UG/L HEMOGLOBIN [id number] 00:00:00 Test Item Value Reference Range Interpretation Comments HEMOGLOBIN A1c (test code = 60870) 5.4 % HEMOGLOBIN [id number] 00:00:00 Test Item Value Reference Range Interpretation Comments HEMOGLOBIN A1c (test code = 31587) 5.4 % HEMOGLOBIN [id number] 00:00:00 Test Item Value Reference Range Interpretation Comments HEMOGLOBIN A1c (test code = 21234) 5.4 % [id number] 00:00:00 Test Item Value Reference Range Interpretation Comments TSH, THIRD GENERATION (test code 0.070 UIU/ML = 2821) [id number] 00:00:00 Test Item Value Reference Range Interpretation Comments TSH, THIRD GENERATION (test code 0.070 UIU/ML = 2821) [id number] 00:00:00 Test Item Value Reference Range Interpretation Comments TSH, THIRD GENERATION (test code 0.070 UIU/ML = 2821) VITAMIN D, 25 [id number] 00:00:00 Test Item Value Reference Range Interpretation Comments VITAMIN D, 25 OH (test code = 4958) 59 NG/ML VITAMIN D, 25 [id number] 00:00:00 Test Item Value Reference Range Interpretation Comments VITAMIN D, 25 OH (test code = 4958) 59 NG/ML VITAMIN B 12 AND FOLIC [id number] 00:00:00 Test Item Value Reference Range Interpretation Comments VITAMIN B-12 (test code = 2840) 689 PG/ML FOLIC ACID (test code = 2695) >20.0 UG/L VITAMIN B 12 AND FOLIC [id number] 00:00:00 Test Item Value Reference Range Interpretation Comments VITAMIN B-12 (test code = 2840) 689 PG/ML FOLIC ACID (test code = 2695) >20.0 UG/L HEMOGLOBIN [id number] 00:00:00 Test Item Value Reference Range Interpretation Comments HEMOGLOBIN A1c (test code = 55385) 5.4 % HEMOGLOBIN [id number] 00:00:00 Test Item Value Reference Range Interpretation Comments HEMOGLOBIN A1c (test code = 90892) 5.4 % HEMOGLOBIN [id number] 00:00:00 Test Item Value Reference Range Interpretation Comments HEMOGLOBIN A1c (test code = 95028) 5.4 % [id number] 00:00:00 Test Item Value Reference Range Interpretation Comments TSH, THIRD GENERATION (test code 0.070 UIU/ML = 2821) [id number] 00:00:00 Test Item Value Reference Range Interpretation Comments TSH, THIRD GENERATION (test code 0.070 UIU/ML = 2821) [id number] 00:00:00 Test Item Value Reference Range Interpretation Comments TSH, THIRD GENERATION (test code 0.070 UIU/ML = 2821) VITAMIN D, 25 [id number] 00:00:00 Test Item Value Reference Range Interpretation Comments VITAMIN D, 25 OH (test code = 4958) 59 NG/ML VITAMIN D, 25 [id number] 00:00:00 Test Item Value Reference Range Interpretation Comments VITAMIN D, 25 OH (test code = 4958) 59 NG/ML VITAMIN B 12 AND FOLIC [id number] 00:00:00 Test Item Value Reference Range Interpretation Comments VITAMIN B-12 (test code = 2840) 689 PG/ML FOLIC ACID (test code = 2695) >20.0 UG/L VITAMIN B 12 AND FOLIC [id number] 00:00:00 Test Item Value Reference Range Interpretation Comments VITAMIN B-12 (test code = 2840) 689 PG/ML FOLIC ACID (test code = 2695) >20.0 UG/L HEMOGLOBIN [id number] 00:00:00 Test Item Value Reference Range Interpretation Comments HEMOGLOBIN A1c (test code = 55679) 5.4 % HEMOGLOBIN [id number] 00:00:00 Test Item Value Reference Range Interpretation Comments HEMOGLOBIN A1c (test code = 54852) 5.4 % HEMOGLOBIN [id number] 00:00:00 Test Item Value Reference Range Interpretation Comments HEMOGLOBIN A1c (test code = 84731) 5.4 % [id number] 00:00:00 Test Item Value Reference Range Interpretation Comments TSH, THIRD GENERATION (test code 0.070 UIU/ML = 2821) [id number] 00:00:00 Test Item Value Reference Range Interpretation Comments TSH, THIRD GENERATION (test code 0.070 UIU/ML = 2821) [id number] 00:00:00 Test Item Value Reference Range Interpretation Comments TSH, THIRD GENERATION (test code 0.070 UIU/ML = 2821) VITAMIN D, 25 [id number] 00:00:00 Test Item Value Reference Range Interpretation Comments VITAMIN D, 25 OH (test code = 4958) 59 NG/ML VITAMIN D, 25 [id number] 00:00:00 Test Item Value Reference Range Interpretation Comments VITAMIN D, 25 OH (test code = 4958) 59 NG/ML VITAMIN B 12 AND FOLIC [id number] 00:00:00 Test Item Value Reference Range Interpretation Comments VITAMIN B-12 (test code = 2840) 689 PG/ML FOLIC ACID (test code = 2695) >20.0 UG/L VITAMIN B 12 AND FOLIC [id number] 00:00:00 Test Item Value Reference Range Interpretation Comments VITAMIN B-12 (test code = 2840) 689 PG/ML FOLIC ACID (test code = 2695) >20.0 UG/L HEMOGLOBIN [id number] 00:00:00 Test Item Value Reference Range Interpretation Comments HEMOGLOBIN A1c (test code = 14792) 5.4 % HEMOGLOBIN [id number] 00:00:00 Test Item Value Reference Range Interpretation Comments HEMOGLOBIN A1c (test code = 46819) 5.4 % HEMOGLOBIN [id number] 00:00:00 Test Item Value Reference Range Interpretation Comments HEMOGLOBIN A1c (test code = 30505) 5.4 % [id number] 00:00:00 Test Item Value Reference Range Interpretation Comments TSH, THIRD GENERATION (test code 0.070 UIU/ML = 2821) [id number] 00:00:00 Test Item Value Reference Range Interpretation Comments TSH, THIRD GENERATION (test code 0.070 UIU/ML = 2821) [id number] 00:00:00 Test Item Value Reference Range Interpretation Comments TSH, THIRD GENERATION (test code 0.070 UIU/ML = 2821) VITAMIN D, 25 [id number] 00:00:00 Test Item Value Reference Range Interpretation Comments VITAMIN D, 25 OH (test code = 4958) 59 NG/ML VITAMIN D, 25 [id number] 00:00:00 Test Item Value Reference Range Interpretation Comments VITAMIN D, 25 OH (test code = 4958) 59 NG/ML VITAMIN B 12 AND FOLIC [id number] 00:00:00 Test Item Value Reference Range Interpretation Comments VITAMIN B-12 (test code = 2840) 689 PG/ML FOLIC ACID (test code = 2695) >20.0 UG/L VITAMIN B 12 AND FOLIC [id number] 00:00:00 Test Item Value Reference Range Interpretation Comments VITAMIN B-12 (test code = 2840) 689 PG/ML FOLIC ACID (test code = 2695) >20.0 UG/L HEMOGLOBIN [id number] 00:00:00 Test Item Value Reference Range Interpretation Comments HEMOGLOBIN A1c (test code = 76415) 5.4 % HEMOGLOBIN [id number] 00:00:00 Test Item Value Reference Range Interpretation Comments HEMOGLOBIN A1c (test code = 84994) 5.4 % HEMOGLOBIN [id number] 00:00:00 Test Item Value Reference Range Interpretation Comments HEMOGLOBIN A1c (test code = 78566) 5.4 % [id number] 00:00:00 Test Item Value Reference Range Interpretation Comments TSH, THIRD GENERATION (test code 0.070 UIU/ML = 2821) [id number] 00:00:00 Test Item Value Reference Range Interpretation Comments TSH, THIRD GENERATION (test code 0.070 UIU/ML = 2821) [id number] 00:00:00 Test Item Value Reference Range Interpretation Comments TSH, THIRD GENERATION (test code 0.070 UIU/ML = 2821) VITAMIN D, 25 [id number] 00:00:00 Test Item Value Reference Range Interpretation Comments VITAMIN D, 25 OH (test code = 4958) 59 NG/ML VITAMIN D, 25 [id number] 00:00:00 Test Item Value Reference Range Interpretation Comments VITAMIN D, 25 OH (test code = 4958) 59 NG/ML VITAMIN B 12 AND FOLIC [id number] 00:00:00 Test Item Value Reference Range Interpretation Comments VITAMIN B-12 (test code = 2840) 689 PG/ML FOLIC ACID (test code = 2695) >20.0 UG/L VITAMIN B 12 AND FOLIC [id number] 00:00:00 Test Item Value Reference Range Interpretation Comments VITAMIN B-12 (test code = 2840) 689 PG/ML FOLIC ACID (test code = 2695) >20.0 UG/L HEMOGLOBIN [id number] 00:00:00 Test Item Value Reference Range Interpretation Comments HEMOGLOBIN A1c (test code = 45721) 5.4 % HEMOGLOBIN [id number] 00:00:00 Test Item Value Reference Range Interpretation Comments HEMOGLOBIN A1c (test code = 42679) 5.4 % [id number] 09:01:48 Test Item Value Reference Interpretation Comments Range LEVETIRACETAM 28.1 12.0-46.0 This test was developed and (test code = mcg/mL its performance 46688) characteristics determined by [facility] ([facility]RL). It has n [...] vement Amendments (CLI A). TESTING PERFORMED AT [facility] [address], [address], [address] [place], [place] [address] CLIA NO: [id number] 09:01:48 Test Item Value Reference Interpretation Comments Range LAMOTRIGINE 11.8 2.5-15.0 This test was d eveloped and (test code = mcg/mL its performance 48027) characteristics determined by [facility] ([facility]). [...] toryImprovement Amendments (CLI A). TESTING PERFORMED AT [facility] [address], [address], [address] [address] CLIA NO: [id number] UNLE SS OTHERWISE INDICATED, ALL TESTING PERFORMED [facility], [facility]. [address] [place], [place] [address] [employer]: Zoey VENEGAS [id number] [facility] [place]. [id number] 00:00:00 Test Item Value Reference Range Interpretation Comments LEVETIRACETAM (test code = 65043) 28.1 mcg/mL [id number] 00:00:00 Test Item Value Reference Range Interpretation Comments LEVETIRACETAM (test code = 30681) 28.1 mcg/mL [id number] 00:00:00 Test Item Value Reference Range Interpretation Comments LAMOTRIGINE (test code = 63815) 11.8 mcg/mL [id number] 00:00:00 Test Item Value Reference Range Interpretation Comments LAMOTRIGINE (test code = 88490) 11.8 mcg/mL [id number] 00:00:00 Test Item Value Reference Range Interpretation Comments LEVETIRACETAM (test code = 21922) 28.1 mcg/mL [id number] 00:00:00 Test Item Value Reference Range Interpretation Comments LEVETIRACETAM (test code = 44881) 28.1 mcg/mL [id number] 00:00:00 Test Item Value Reference Range Interpretation Comments LAMOTRIGINE (test code = 11597) 11.8 mcg/mL [id number] 00:00:00 Test Item Value Reference Range Interpretation Comments LAMOTRIGINE (test code = 82811) 11.8 mcg/mL [id number] 00:00:00 Test Item Value Reference Range Interpretation Comments LEVETIRACETAM (test code = 39189) 28.1 mcg/mL [id number] 00:00:00 Test Item Value Reference Range Interpretation Comments LEVETIRACETAM (test code = 05798) 28.1 mcg/mL [id number] 00:00:00 Test Item Value Reference Range Interpretation Comments LAMOTRIGINE (test code = 42147) 11.8 mcg/mL [id number] 00:00:00 Test Item Value Reference Range Interpretation Comments LAMOTRIGINE (test code = 99452) 11.8 mcg/mL [id number] 00:00:00 Test Item Value Reference Range Interpretation Comments LEVETIRACETAM (test code = 47701) 28.1 mcg/mL [id number] 00:00:00 Test Item Value Reference Range Interpretation Comments LEVETIRACETAM (test code = 06727) 28.1 mcg/mL [id number] 00:00:00 Test Item Value Reference Range Interpretation Comments LAMOTRIGINE (test code = 63466) 11.8 mcg/mL [id number] 00:00:00 Test Item Value Reference Range Interpretation Comments LAMOTRIGINE (test code = 74277) 11.8 mcg/mL [id number] 00:00:00 Test Item Value Reference Range Interpretation Comments LEVETIRACETAM (test code = 06631) 28.1 mcg/mL [id number] 00:00:00 Test Item Value Reference Range Interpretation Comments LEVETIRACETAM (test code = 62621) 28.1 mcg/mL [id number] 00:00:00 Test Item Value Reference Range Interpretation Comments LAMOTRIGINE (test code = 48838) 11.8 mcg/mL [id number] 00:00:00 Test Item Value Reference Range Interpretation Comments LAMOTRIGINE (test code = 10976) 11.8 mcg/mL [id number] 00:00:00 Test Item Value Reference Range Interpretation Comments LEVETIRACETAM (test code = 33449) 28.1 mcg/mL [id number] 00:00:00 Test Item Value Reference Range Interpretation Comments LEVETIRACETAM (test code = 57798) 28.1 mcg/mL [id number] 00:00:00 Test Item Value Reference Range Interpretation Comments LAMOTRIGINE (test code = 47188) 11.8 mcg/mL [id number] 00:00:00 Test Item Value Reference Range Interpretation Comments LAMOTRIGINE (test code = 48876) 11.8 mcg/mL LIPID [id number] 05:03:13 Test Item Value Reference Range Interpretation [...] , SEE CLIENT ANNOUNCE MENT AT [email or web address] RISK RATIO LDL/HDL 2.10 RATIO <3.22 (test code = 2238) COMPREHENSIVE METABOLIC [id number] 05:03:13 Test Item Value Reference Range Interpretation Comments GLUCOSE (test code = 90 MG/DL 70-99 2216) BUN (test code = 13 MG/DL -20 2207) CREATININE (test 1.18 MG/DL 0.60-1.30 code = 221) eGFR (2020 CKD-EPI) 54 ML/MIN/1.73 >60 L (test code = 59413) CALC BUN/CREAT (test 11 RATIO 6-28 code = 2234) SODIUM (test code = 141 MEQ/L 344-164 3401) POTASSIUM (test code 3.5 MEQ/L 3.5-5.4 = [...] message] (test code = 2206) The syste m which generated this result transmit sonia reference range : <=1.2. The refe rence range was not u sed to interpret th is result as normal/abnormal . ALKALINE PHOSPHATASE 116 U/L 40-136 (test code = 2203) AST (test code = 47 U/L 9-40 H 2217) ALT (test code = 33 U/L 5-40 2218) HEMOGLOBIN [id number] 04:27:11 Test Item Value Reference Range Interpretation Comments HEMOGLOBIN A1c (test code = 12861) 5.7 % 4.2-5.6 H CBC W/AUTO DIFF WITH [id number] 03:03:33 Test Item Value Reference Range Interpretation [...] RBCS 0.00 K/UL 0.00-0.11 (test code = 99743) CBC W/AUTO [id number] 00:00:00 Test Item Value Reference Range Interpretation [...] NUCLEATED RBCS (test code = 0.00 K/UL 64340) HEMOGLOBIN [id number] 00:00:00 Test Item Value Reference Range Interpretation Comments HEMOGLOBIN A1c (test code = 61609) 5.7 % HEMOGLOBIN [id number] 00:00:00 Test Item Value Reference Range Interpretation Comments HEMOGLOBIN A1c (test code = 77755) 5.7 % HEMOGLOBIN [id number] 00:00:00 Test Item Value Reference Range Interpretation Comments HEMOGLOBIN A1c (test code = 78354) 5.7 % LIPID [id number] 00:00:00 Test Item Value Reference Range Interpretation Comments CHOLESTEROL (test code = 2210) 180 MG/DL TRIGLYCERIDES (test code = 2232) 95 MG/DL HDL CHOLESTEROL (test code = 2220) 52 MG/DL CALC LDL CHOL (test code = 2237) 109 MG/DL RISK RATIO LDL/HDL (test code = 2.10 RATIO 2238) LIPID [id number] 00:00:00 Test Item Value Reference Range Interpretation Comments CHOLESTEROL (test code = 2210) 180 MG/DL TRIGLYCERIDES (test code = 2232) 95 MG/DL HDL CHOLESTEROL (test code = 2220) 52 MG/DL CALC LDL CHOL (test code = 2237) 109 MG/DL RISK RATIO LDL/HDL (test code = 2.10 RATIO 2238) COMPREHENSIVE METABOLIC [id number] 00:00:00 Test Item Value Reference Range Interpretation Comments GLUCOSE (test code = 2217) 90 MG/DL BUN (test code = 2208) 13 MG/DL CREATININE (test code = 2214) 1.18 MG/DL eGFR (2020 CKD-EPI) (test code 54 ML/MIN/1.73 = 16245) CALC BUN/CREAT (test code = 11 RATIO [...] code = 2219) 33 U/L COMPREHENSIVE METABOLIC [id number] 00:00:00 Test Item Value Reference Range Interpretation Comments GLUCOSE (test code = 2217) 90 MG/DL BUN (test code = 2208) 13 MG/DL CREATININE (test code = 2214) 1.18 MG/DL eGFR (2020 CKD-EPI) (test code 54 ML/MIN/1.73 = 89254) CALC BUN/CREAT (test code = 11 RATIO [...] code = 2219) 33 U/L CBC W/AUTO [id number] 00:00:00 Test Item Value Reference Range Interpretation [...] NUCLEATED RBCS (test code = 0.00 K/UL 33846) CBC W/AUTO [id number] 00:00:00 Test Item Value Reference Range Interpretation [...] NUCLEATED RBCS (test code = 0.00 K/UL 37943) CBC W/AUTO [id number] 00:00:00 Test Item Value Reference Range Interpretation [...] NUCLEATED RBCS (test code = 0.00 K/UL 38450) HEMOGLOBIN [id number] 00:00:00 Test Item Value Reference Range Interpretation Comments HEMOGLOBIN A1c (test code = 26780) 5.7 % HEMOGLOBIN [id number] 00:00:00 Test Item Value Reference Range Interpretation Comments HEMOGLOBIN A1c (test code = 60622) 5.7 % HEMOGLOBIN [id number] 00:00:00 Test Item Value Reference Range Interpretation Comments HEMOGLOBIN A1c (test code = 27565) 5.7 % LIPID [id number] 00:00:00 Test Item Value Reference Range Interpretation Comments CHOLESTEROL (test code = 2210) 180 MG/DL TRIGLYCERIDES (test code = 2232) 95 MG/DL HDL CHOLESTEROL (test code = 2220) 52 MG/DL CALC LDL CHOL (test code = 2237) 109 MG/DL RISK RATIO LDL/HDL (test code = 2.10 RATIO 2238) LIPID [id number] 00:00:00 Test Item Value Reference Range Interpretation Comments CHOLESTEROL (test code = 2210) 180 MG/DL TRIGLYCERIDES (test code = 2232) 95 MG/DL HDL CHOLESTEROL (test code = 2220) 52 MG/DL CALC LDL CHOL (test code = 2237) 109 MG/DL RISK RATIO LDL/HDL (test code = 2.10 RATIO 2238) COMPREHENSIVE METABOLIC [id number] 00:00:00 Test Item Value Reference Range Interpretation Comments GLUCOSE (test code = 2217) 90 MG/DL BUN (test code = 2208) 13 MG/DL CREATININE (test code = 2214) 1.18 MG/DL eGFR (2020 CKD-EPI) (test code 54 ML/MIN/1.73 = 33738) CALC BUN/CREAT (test code = 11 RATIO [...] code = 2219) 33 U/L COMPREHENSIVE METABOLIC [id number] 00:00:00 Test Item Value Reference Range Interpretation Comments GLUCOSE (test code = 2217) 90 MG/DL BUN (test code = 2208) 13 MG/DL CREATININE (test code = 2214) 1.18 MG/DL eGFR (2020 CKD-EPI) (test code 54 ML/MIN/1.73 = 25112) CALC BUN/CREAT (test code = 11 RATIO [...] code = 2219) 33 U/L CBC W/AUTO [id number] 00:00:00 Test Item Value Reference Range Interpretation [...] NUCLEATED RBCS (test code = 0.00 K/UL 16612) CBC W/AUTO [id number] 00:00:00 Test Item Value Reference Range Interpretation [...] NUCLEATED RBCS (test code = 0.00 K/UL 19672) CBC W/AUTO [id number] 00:00:00 Test Item Value Reference Range Interpretation [...] NUCLEATED RBCS (test code = 0.00 K/UL 29669) HEMOGLOBIN [id number] 00:00:00 Test Item Value Reference Range Interpretation Comments HEMOGLOBIN A1c (test code = 46053) 5.7 % HEMOGLOBIN [id number] 00:00:00 Test Item Value Reference Range Interpretation Comments HEMOGLOBIN A1c (test code = 61523) 5.7 % HEMOGLOBIN [id number] 00:00:00 Test Item Value Reference Range Interpretation Comments HEMOGLOBIN A1c (test code = 15806) 5.7 % LIPID [id number] 00:00:00 Test Item Value Reference Range Interpretation Comments CHOLESTEROL (test code = 2210) 180 MG/DL TRIGLYCERIDES (test code = 2232) 95 MG/DL HDL CHOLESTEROL (test code = 2220) 52 MG/DL CALC LDL CHOL (test code = 2237) 109 MG/DL RISK RATIO LDL/HDL (test code = 2.10 RATIO 2238) LIPID [id number] 00:00:00 Test Item Value Reference Range Interpretation Comments CHOLESTEROL (test code = 2210) 180 MG/DL TRIGLYCERIDES (test code = 2232) 95 MG/DL HDL CHOLESTEROL (test code = 2220) 52 MG/DL CALC LDL CHOL (test code = 2237) 109 MG/DL RISK RATIO LDL/HDL (test code = 2.10 RATIO 2238) COMPREHENSIVE METABOLIC [id number] 00:00:00 Test Item Value Reference Range Interpretation Comments GLUCOSE (test code = 2217) 90 MG/DL BUN (test code = 2208) 13 MG/DL CREATININE (test code = 2214) 1.18 MG/DL eGFR (2020 CKD-EPI) (test code 54 ML/MIN/1.73 = 68723) CALC BUN/CREAT (test code = 11 RATIO [...] = 0.5 MG/DL 220) ALKALINE PHOSPHATASE (test 116 U/L code = 2204) AST (test code = 2218) 47 U/L ALT (test code = 2219) 33 U/L COMPREHENSIVE METABOLIC [id number] 00:00:00 Test Item Value Reference Range Interpretation Comments GLUCOSE (test code = 2217) 90 MG/DL BUN (test code = 2208) 13 MG/DL CREATININE (test code = 2214) 1.18 MG/DL eGFR (2020 CKD-EPI) (test code 54 ML/MIN/1.73 = 34745) CALC BUN/CREAT (test code = 11 RATIO [...] code = 2219) 33 U/L CBC W/AUTO [id number] 00:00:00 Test Item Value Reference Range Interpretation [...] NUCLEATED RBCS (test code = 0.00 K/UL 41133) CBC W/AUTO [id number] 00:00:00 Test Item Value Reference Range Interpretation [...] NUCLEATED RBCS (test code = 0.00 K/UL 40072) CBC W/AUTO [id number] 00:00:00 Test Item Value Reference Range Interpretation [...] NUCLEATED RBCS (test code = 0.00 K/UL 13876) HEMOGLOBIN [id number] 00:00:00 Test Item Value Reference Range Interpretation Comments HEMOGLOBIN A1c (test code = 50675) 5.7 % HEMOGLOBIN [id number] 00:00:00 Test Item Value Reference Range Interpretation Comments HEMOGLOBIN A1c (test code = 63502) 5.7 % HEMOGLOBIN [id number] 00:00:00 Test Item Value Reference Range Interpretation Comments HEMOGLOBIN A1c (test code = 54385) 5.7 % LIPID [id number] 00:00:00 Test Item Value Reference Range Interpretation Comments CHOLESTEROL (test code = 2210) 180 MG/DL TRIGLYCERIDES (test code = 2232) 95 MG/DL HDL CHOLESTEROL (test code = 2220) 52 MG/DL CALC LDL CHOL (test code = 2237) 109 MG/DL RISK RATIO LDL/HDL (test code = 2.10 RATIO 2238) LIPID [id number] 00:00:00 Test Item Value Reference Range Interpretation Comments CHOLESTEROL (test code = 2210) 180 MG/DL TRIGLYCERIDES (test code = 2232) 95 MG/DL HDL CHOLESTEROL (test code = 2220) 52 MG/DL CALC LDL CHOL (test code = 2237) 109 MG/DL RISK RATIO LDL/HDL (test code = 2.10 RATIO 2238) COMPREHENSIVE METABOLIC [id number] 00:00:00 Test Item Value Reference Range Interpretation Comments GLUCOSE (test code = 2217) 90 MG/DL BUN (test code = 2208) 13 MG/DL CREATININE (test code = 2214) 1.18 MG/DL eGFR (2020 CKD-EPI) (test code 54 ML/MIN/1.73 = 63945) CALC BUN/CREAT (test code = 11 RATIO [...] code = 2219) 33 U/L COMPREHENSIVE METABOLIC [id number] 00:00:00 Test Item Value Reference Range Interpretation Comments GLUCOSE (test code = 2217) 90 MG/DL BUN (test code = 2208) 13 MG/DL CREATININE (test code = 2214) 1.18 MG/DL eGFR (2020 CKD-EPI) (test code 54 ML/MIN/1.73 = 54764) CALC BUN/CREAT (test code = 11 RATIO [...] code = 2219) 33 U/L CBC W/AUTO [id number] 00:00:00 Test Item Value Reference Range Interpretation [...] NUCLEATED RBCS (test code = 0.00 K/UL 03645) CBC W/AUTO [id number] 00:00:00 Test Item Value Reference Range Interpretation [...] NUCLEATED RBCS (test code = 0.00 K/UL 46475) CBC W/AUTO [id number] 00:00:00 Test Item Value Reference Range Interpretation [...] NUCLEATED RBCS (test code = 0.00 K/UL 54650) HEMOGLOBIN [id number] 00:00:00 Test Item Value Reference Range Interpretation Comments HEMOGLOBIN A1c (test code = 19392) 5.7 % HEMOGLOBIN [id number] 00:00:00 Test Item Value Reference Range Interpretation Comments HEMOGLOBIN A1c (test code = 30247) 5.7 % HEMOGLOBIN [id number] 00:00:00 Test Item Value Reference Range Interpretation Comments HEMOGLOBIN A1c (test code = 81290) 5.7 % LIPID [id number] 00:00:00 Test Item Value Reference Range Interpretation Comments CHOLESTEROL (test code = 2210) 180 MG/DL TRIGLYCERIDES (test code = 2232) 95 MG/DL HDL CHOLESTEROL (test code = 2220) 52 MG/DL CALC LDL CHOL (test code = 2237) 109 MG/DL RISK RATIO LDL/HDL (test code = 2.10 RATIO 2238) LIPID [id number] 00:00:00 Test Item Value Reference Range Interpretation Comments CHOLESTEROL (test code = 2210) 180 MG/DL TRIGLYCERIDES (test code = 2232) 95 MG/DL HDL CHOLESTEROL (test code = 2220) 52 MG/DL CALC LDL CHOL (test code = 2237) 109 MG/DL RISK RATIO LDL/HDL (test code = 2.10 RATIO 2238) COMPREHENSIVE METABOLIC [id number] 00:00:00 Test Item Value Reference Range Interpretation Comments GLUCOSE (test code = 2217) 90 MG/DL BUN (test code = 2208) 13 MG/DL CREATININE (test code = 2214) 1.18 MG/DL eGFR (2020 CKD-EPI) (test code 54 ML/MIN/1.73 = 69394) CALC BUN/CREAT (test code = 11 RATIO [...] code = 2219) 33 U/L COMPREHENSIVE METABOLIC [id number] 00:00:00 Test Item Value Reference Range Interpretation Comments GLUCOSE (test code = 2217) 90 MG/DL BUN (test code = 2208) 13 MG/DL CREATININE (test code = 2214) 1.18 MG/DL eGFR (2020 CKD-EPI) (test code 54 ML/MIN/1.73 = 26124) CALC BUN/CREAT (test code = 11 RATIO [...] = 0.5 MG/DL 7) ALKALINE PHOSPHATASE (test 116 U/L code = 2204) AST (test code = 2218) 47 U/L ALT (test code = 2219) 33 U/L CBC W/AUTO [id number] 00:00:00 Test Item Value Reference Range Interpretation [...] NUCLEATED RBCS (test code = 0.00 K/UL 40941) CBC W/AUTO [id number] 00:00:00 Test Item Value Reference Range Interpretation [...] NUCLEATED RBCS (test code = 0.00 K/UL 28207) CBC W/AUTO [id number] 00:00:00 Test Item Value Reference Range Interpretation [...] NUCLEATED RBCS (test code = 0.00 K/UL 05085) HEMOGLOBIN [id number] 00:00:00 Test Item Value Reference Range Interpretation Comments HEMOGLOBIN A1c (test code = 38431) 5.7 % HEMOGLOBIN [id number] 00:00:00 Test Item Value Reference Range Interpretation Comments HEMOGLOBIN A1c (test code = 86554) 5.7 % HEMOGLOBIN [id number] 00:00:00 Test Item Value Reference Range Interpretation Comments HEMOGLOBIN A1c (test code = 72351) 5.7 % LIPID [id number] 00:00:00 Test Item Value Reference Range Interpretation Comments CHOLESTEROL (test code = 2210) 180 MG/DL TRIGLYCERIDES (test code = 2232) 95 MG/DL HDL CHOLESTEROL (test code = 2220) 52 MG/DL CALC LDL CHOL (test code = 2237) 109 MG/DL RISK RATIO LDL/HDL (test code = 2.10 RATIO 2238) LIPID [id number] 00:00:00 Test Item Value Reference Range Interpretation Comments CHOLESTEROL (test code = 2210) 180 MG/DL TRIGLYCERIDES (test code = 2232) 95 MG/DL HDL CHOLESTEROL (test code = 2220) 52 MG/DL CALC LDL CHOL (test code = 2237) 109 MG/DL RISK RATIO LDL/HDL (test code = 2.10 RATIO 2238) COMPREHENSIVE METABOLIC [id number] 00:00:00 Test Item Value Reference Range Interpretation Comments GLUCOSE (test code = 2217) 90 MG/DL BUN (test code = 2208) 13 MG/DL CREATININE (test code = 2214) 1.18 MG/DL eGFR (2020 CKD-EPI) (test code 54 ML/MIN/1.73 = 43086) CALC BUN/CREAT (test code = 11 RATIO [...] = 0.5 MG/DL 220) ALKALINE PHOSPHATASE (test 116 U/L code = 2204) AST (test code = 2218) 47 U/L ALT (test code = 2219) 33 U/L COMPREHENSIVE METABOLIC [id number] 00:00:00 Test Item Value Reference Range Interpretation Comments GLUCOSE (test code = 2217) 90 MG/DL BUN (test code = 2208) 13 MG/DL CREATININE (test code = 2214) 1.18 MG/DL eGFR (2020 CKD-EPI) (test code 54 ML/MIN/1.73 = 96956) CALC BUN/CREAT (test code = 11 RATIO [...] CALC GLOBULIN (test code = 2.2 G/DL 224) CALC A/G RATIO (test code = 2.3 RATIO 2233) BILIRUBIN, TOTAL (test code = 0.5 MG/DL 2206) ALKALINE PHOSPHATASE (test 116 U/L code = 220) AST (test code = 2218) 47 U/L ALT (test code = 2219) 33 U/L CBC W/AUTO [id number] 00:00:00 Test Item Value Reference Range Interpretation [...] NUCLEATED RBCS (test code = 0.00 K/UL 07892) CBC W/AUTO [id number] 00:00:00 Test Item Value Reference Range Interpretation [...] NUCLEATED RBCS (test code = 0.00 K/UL 50017) VITAMIN D, 25 [id number] 00:00:00 Test Item Value Reference Range Interpretation Comments VITAMIN D, 25 OH (test code = 4958) 45 NG/ML VITAMIN D, 25 [id number] 00:00:00 Test Item Value Reference Range Interpretation Comments VITAMIN D, 25 OH (test code = 4958) 45 NG/ML VITAMIN D, 25 [id number] 00:00:00 Test Item Value Reference Range Interpretation Comments VITAMIN D, 25 OH (test code = 4958) 45 NG/ML VITAMIN D, 25 [id number] 00:00:00 Test Item Value Reference Range Interpretation Comments VITAMIN D, 25 OH (test code = 4958) 45 NG/ML VITAMIN D, 25 [id number] 00:00:00 Test Item Value Reference Range Interpretation Comments VITAMIN D, 25 OH (test code = 4958) 45 NG/ML VITAMIN D, 25 [id number] 00:00:00 Test Item Value Reference Range Interpretation Comments VITAMIN D, 25 OH (test code = 4958) 45 NG/ML VITAMIN D, 25 [id number] 00:00:00 Test Item Value Reference Range Interpretation Comments VITAMIN D, 25 OH (test code = 4958) 45 NG/ML VITAMIN D, 25 [id number] 00:00:00 Test Item Value Reference Range Interpretation Comments VITAMIN D, 25 OH (test code = 4958) 45 NG/ML VITAMIN D, 25 [id number] 00:00:00 Test Item Value Reference Range Interpretation Comments VITAMIN D, 25 OH (test code = 4958) 45 NG/ML VITAMIN D, 25 [id number] 00:00:00 Test Item Value Reference Range Interpretation Comments VITAMIN D, 25 OH (test code = 4958) 45 NG/ML VITAMIN D, 25 [id number] 00:00:00 Test Item Value Reference Range Interpretation Comments VITAMIN D, 25 OH (test code = 4958) 45 NG/ML VITAMIN D, 25 [id number] 00:00:00 Test Item Value Reference Range Interpretation Comments VITAMIN D, 25 OH (test code = 4958) 45 NG/ML RISPERIDONE, [id number] 00:00:00 Test Item Value Reference Range Interpretation Comments RISPERIDONE (test code = 49293) <5.0 ng/mL 9-OH RISPERIDONE (test code = <5.0 ng/mL 48046) RISPERIDONE + 9-OH RISPER (test <10.0 ng/mL code = 19493) RISPERIDONE, [id number] 00:00:00 Test Item Value Reference Range Interpretation Comments RISPERIDONE (test code = 32008) <5.0 ng/mL 9-OH RISPERIDONE (test code = <5.0 ng/mL 04810) RISPERIDONE + 9-OH RISPER (test <10.0 ng/mL code = 87848) RISPERIDONE, [id number] 00:00:00 Test Item Value Reference Range Interpretation Comments RISPERIDONE (test code = 90760) <5.0 ng/mL 9-OH RISPERIDONE (test code = <5.0 ng/mL 78070) RISPERIDONE + 9-OH RISPER (test <10.0 ng/mL code = 89234) RISPERIDONE, [id number] 00:00:00 Test Item Value Reference Range Interpretation Comments RISPERIDONE (test code = 64923) <5.0 ng/mL 9-OH RISPERIDONE (test code = <5.0 ng/mL 34817) RISPERIDONE + 9-OH RISPER (test <10.0 ng/mL code = 18198) RISPERIDONE, [id number] 00:00:00 Test Item Value Reference Range Interpretation Comments RISPERIDONE (test code = 86836) <5.0 ng/mL 9-OH RISPERIDONE (test code = <5.0 ng/mL 88916) RISPERIDONE + 9-OH RISPER (test <10.0 ng/mL code = 84502) RISPERIDONE, [id number] 00:00:00 Test Item Value Reference Range Interpretation Comments RISPERIDONE (test code = 80311) <5.0 ng/mL 9-OH RISPERIDONE (test code = <5.0 ng/mL 13866) RISPERIDONE + 9-OH RISPER (test <10.0 ng/mL code = 99148) RISPERIDONE, [id number] 00:00:00 Test Item Value Reference Range Interpretation Comments RISPERIDONE (test code = 84223) <5.0 ng/mL 9-OH RISPERIDONE (test code = <5.0 ng/mL 35177) RISPERIDONE + 9-OH RISPER (test <10.0 ng/mL code = 18970) RISPERIDONE, [id number] 00:00:00 Test Item Value Reference Range Interpretation Comments RISPERIDONE (test code = 81606) <5.0 ng/mL 9-OH RISPERIDONE (test code = <5.0 ng/mL 81955) RISPERIDONE + 9-OH RISPER (test <10.0 ng/mL code = 89190) RISPERIDONE, [id number] 00:00:00 Test Item Value Reference Range Interpretation Comments RISPERIDONE (test code = 40539) <5.0 ng/mL 9-OH RISPERIDONE (test code = <5.0 ng/mL 89426) RISPERIDONE + 9-OH RISPER (test <10.0 ng/mL code = 07347) RISPERIDONE, [id number] 00:00:00 Test Item Value Reference Range Interpretation Comments RISPERIDONE (test code = 48021) <5.0 ng/mL 9-OH RISPERIDONE (test code = <5.0 ng/mL 33717) RISPERIDONE + 9-OH RISPER (test <10.0 ng/mL code = 42812) RISPERIDONE, [id number] 00:00:00 Test Item Value Reference Range Interpretation Comments RISPERIDONE (test code = 72579) <5.0 ng/mL 9-OH RISPERIDONE (test code = <5.0 ng/mL 56926) RISPERIDONE + 9-OH RISPER (test <10.0 ng/mL code = 65784) RISPERIDONE, [id number] 00:00:00 Test Item Value Reference Range Interpretation Comments RISPERIDONE (test code = 81765) <5.0 ng/mL 9-OH RISPERIDONE (test code = <5.0 ng/mL 35861) RISPERIDONE + 9-OH RISPER (test <10.0 ng/mL code = 67325) [id number] 00:00:00 Test Item Value Reference Range Interpretation Comments LEVETIRACETAM (test code = 50363) 10.1 mcg/mL [id number] 00:00:00 Test Item Value Reference Range Interpretation Comments LEVETIRACETAM (test code = 38100) 10.1 mcg/mL [id number] 00:00:00 Test Item Value Reference Range Interpretation Comments LEVETIRACETAM (test code = 77448) 10.1 mcg/mL [id number] 00:00:00 Test Item Value Reference Range Interpretation Comments LEVETIRACETAM (test code = 90770) 10.1 mcg/mL [id number] 00:00:00 Test Item Value Reference Range Interpretation Comments LEVETIRACETAM (test code = 46123) 10.1 mcg/mL [id number] 00:00:00 Test Item Value Reference Range Interpretation Comments LEVETIRACETAM (test code = 48665) 10.1 mcg/mL [id number] 00:00:00 Test Item Value Reference Range Interpretation Comments LEVETIRACETAM (test code = 29713) 10.1 mcg/mL [id number] 00:00:00 Test Item Value Reference Range Interpretation Comments LEVETIRACETAM (test code = 06365) 10.1 mcg/mL [id number] 00:00:00 Test Item Value Reference Range Interpretation Comments LEVETIRACETAM (test code = 11226) 10.1 mcg/mL [id number] 00:00:00 Test Item Value Reference Range Interpretation Comments LEVETIRACETAM (test code = 52389) 10.1 mcg/mL [id number] 00:00:00 Test Item Value Reference Range Interpretation Comments LEVETIRACETAM (test code = 50948) 10.1 mcg/mL [id number] 00:00:00 Test Item Value Reference Range Interpretation Comments LEVETIRACETAM (test code = 55785) 10.1 mcg/mL HEMOGLOBIN [id number] 00:00:00 Test Item Value Reference Range Interpretation Comments HEMOGLOBIN A1c (test code = 01860) 5.9 % HEMOGLOBIN [id number] 00:00:00 Test Item Value Reference Range Interpretation Comments HEMOGLOBIN A1c (test code = 42152) 5.9 % HEMOGLOBIN [id number] 00:00:00 Test Item Value Reference Range Interpretation Comments HEMOGLOBIN A1c (test code = 02667) 5.9 % RACHEL TITER AND PATTERN [REFLEX]2020-09-02 00:00:00 Test Item Value Reference Range Interpretation Comments PATTERN (test code = HOMOGENEOUS 07821) RACHEL TITER (test code = 1:320 TITER 3550) PATTERN 2 (test code = NOT DETECTED 72098) RACHEL TITER 2 (test code = NOT DETECTED TITER 83251) PATTERN 3 (test code = NOT DETECTED 27374) RACHEL TITER 3 (test code = NOT DETECTED TITER 30800) METHOD (test code = 98965) (NOTE) HEMOGLOBIN [id number] 00:00:00 Test Item Value Reference Range Interpretation Comments HEMOGLOBIN A1c (test code = 21543) 5.9 % HEMOGLOBIN [id number] 00:00:00 Test Item Value Reference Range Interpretation Comments HEMOGLOBIN A1c (test code = 84357) 5.9 % HEMOGLOBIN [id number] 00:00:00 Test Item Value Reference Range Interpretation Comments HEMOGLOBIN A1c (test code = 39322) 5.9 % RACHEL TITER AND PATTERN [REFLEX]2020-09-02 00:00:00 Test Item Value Reference Range Interpretation Comments PATTERN (test code = HOMOGENEOUS 79136) RACHEL TITER (test code = 1:320 TITER 3550) PATTERN 2 (test code = NOT DETECTED 16277) RACHEL TITER 2 (test code = NOT DETECTED TITER 09793) PATTERN 3 (test code = NOT DETECTED 65352) RACHEL TITER 3 (test code = NOT DETECTED TITER 62951) METHOD (test code = 20037) (NOTE) HEMOGLOBIN [id number] 00:00:00 Test Item Value Reference Range Interpretation Comments HEMOGLOBIN A1c (test code = 37444) 5.9 % HEMOGLOBIN [id number] 00:00:00 Test Item Value Reference Range Interpretation Comments HEMOGLOBIN A1c (test code = 12706) 5.9 % HEMOGLOBIN [id number] 00:00:00 Test Item Value Reference Range Interpretation Comments HEMOGLOBIN A1c (test code = 40331) 5.9 % RACHEL TITER AND PATTERN [REFLEX]2020-09-02 00:00:00 Test Item Value Reference Range Interpretation Comments PATTERN (test code = HOMOGENEOUS 19838) RACHEL TITER (test code = 1:320 TITER 3550) PATTERN 2 (test code = NOT DETECTED 45154) RACHEL TITER 2 (test code = NOT DETECTED TITER 47702) PATTERN 3 (test code = NOT DETECTED 17741) RACHEL TITER 3 (test code = NOT DETECTED TITER 45999) METHOD (test code = 09753) (NOTE) HEMOGLOBIN [id number] 00:00:00 Test Item Value Reference Range Interpretation Comments HEMOGLOBIN A1c (test code = 02754) 5.9 % HEMOGLOBIN [id number] 00:00:00 Test Item Value Reference Range Interpretation Comments HEMOGLOBIN A1c (test code = 95389) 5.9 % HEMOGLOBIN [id number] 00:00:00 Test Item Value Reference Range Interpretation Comments HEMOGLOBIN A1c (test code = 00160) 5.9 % RACHEL TITER AND PATTERN [REFLEX]2020-09-02 00:00:00 Test Item Value Reference Range Interpretation Comments PATTERN (test code = HOMOGENEOUS 80290) RACHEL TITER (test code = 1:320 TITER 3550) PATTERN 2 (test code = NOT DETECTED 64001) RACHEL TITER 2 (test code = NOT DETECTED TITER 16897) PATTERN 3 (test code = NOT DETECTED 10529) RACHEL TITER 3 (test code = NOT DETECTED TITER 30221) METHOD (test code = 81161) (NOTE) HEMOGLOBIN [id number] 00:00:00 Test Item Value Reference Range Interpretation Comments HEMOGLOBIN A1c (test code = 25454) 5.9 % HEMOGLOBIN [id number] 00:00:00 Test Item Value Reference Range Interpretation Comments HEMOGLOBIN A1c (test code = 09866) 5.9 % HEMOGLOBIN [id number] 00:00:00 Test Item Value Reference Range Interpretation Comments HEMOGLOBIN A1c (test code = 73678) 5.9 % RACHEL TITER AND PATTERN [REFLEX]2020-09-02 00:00:00 Test Item Value Reference Range Interpretation Comments PATTERN (test code = HOMOGENEOUS 07926) RACHEL TITER (test code = 1:320 TITER 3550) PATTERN 2 (test code = NOT DETECTED 56249) RACHEL TITER 2 (test code = NOT DETECTED TITER 02590) PATTERN 3 (test code = NOT DETECTED 29015) RACHEL TITER 3 (test code = NOT DETECTED TITER 35906) METHOD (test code = 37973) (NOTE) HEMOGLOBIN [id number] 00:00:00 Test Item Value Reference Range Interpretation Comments HEMOGLOBIN A1c (test code = 77754) 5.9 % HEMOGLOBIN [id number] 00:00:00 Test Item Value Reference Range Interpretation Comments HEMOGLOBIN A1c (test code = 31821) 5.9 % HEMOGLOBIN [id number] 00:00:00 Test Item Value Reference Range Interpretation Comments HEMOGLOBIN A1c (test code = 12013) 5.9 % RACHEL TITER AND PATTERN [REFLEX]2020-09-02 00:00:00 Test Item Value Reference Range Interpretation Comments PATTERN (test code = HOMOGENEOUS 90333) RACHEL TITER (test code = 1:320 TITER 3550) PATTERN 2 (test code = NOT DETECTED 71862) RACHEL TITER 2 (test code = NOT DETECTED TITER 79528) PATTERN 3 (test code = NOT DETECTED 47605) RACHEL TITER 3 (test code = NOT DETECTED TITER 67616) METHOD (test code = 18212) (NOTE) [id number] 00:00:00 Test Item Value Reference Range Interpretation Comments TSH, THIRD GENERATION (test code 0.501 UIU/ML = 2821) COMPREHENSIVE METABOLIC [id number] 00:00:00 Test Item Value Reference Range Interpretation Comments GLUCOSE (test code = 2217) 86 MG/DL BUN (test code = 2208) 14 MG/DL CREATININE (test code = 2214) 1.03 MG/DL eGFR AMER. (test code 70 ML/MIN/1.73 = 14744) eGFR NON- AMER. (test 60 ML/MIN/1.73 code = 70018) CALC BUN/CREAT (test code = 14 RATIO [...] code = 2219) 34 U/L COMPREHENSIVE METABOLIC [id number] 00:00:00 Test Item Value Reference Range Interpretation Comments GLUCOSE (test code = 2217) 86 MG/DL BUN (test code = 2208) 14 MG/DL CREATININE (test code = 2214) 1.03 MG/DL eGFR AMER. (test code 70 ML/MIN/1.73 = 99718) eGFR NON- AMER. (test 60 ML/MIN/1.73 code = 92572) CALC BUN/CREAT (test code = 14 RATIO [...] code = 2219) 34 U/L CBC W/AUTO [id number] 00:00:00 Test Item Value Reference Range Interpretation [...] NUCLEATED RBCS (test code = 0.00 K/UL 42669) CBC W/AUTO [id number] 00:00:00 Test Item Value Reference Range Interpretation [...] NUCLEATED RBCS (test code = 0.00 K/UL 24187) CBC W/AUTO [id number] 00:00:00 Test Item Value Reference Range Interpretation [...] NUCLEATED RBCS (test code = 0.00 K/UL 71858) RHEUMATOID FACTOR, [id number] 00:00:00 Test Item Value Reference Range Interpretation Comments RHEUMATOID FACTOR, QUANT (test code <10 IU/ML = 3502) RHEUMATOID FACTOR, [id number] 00:00:00 Test Item Value Reference Range Interpretation Comments RHEUMATOID FACTOR, QUANT (test code <10 IU/ML = 3502) RHEUMATOID FACTOR, [id number] 00:00:00 Test Item Value Reference Range Interpretation Comments RHEUMATOID FACTOR, QUANT (test code <10 IU/ML = 3502) C-REACTIVE [id number] 00:00:00 Test Item Value Reference Range Interpretation Comments C-REACTIVE PROTEIN (test code = <0.3 MG/DL 3513) C-REACTIVE [id number] 00:00:00 Test Item Value Reference Range Interpretation Comments C-REACTIVE PROTEIN (test code = <0.3 MG/DL 3513) RACHEL (ANTI-NUCLEAR AB) WITH REFLEX [id number] 00:00:00 Test Item Value Reference Range Interpretation Comments ANTI-NUCLEAR ANTIBODIES (test code = POSITIVE 3506) RACHEL (ANTI-NUCLEAR AB) WITH REFLEX [id number] 00:00:00 Test Item Value Reference Range Interpretation Comments ANTI-NUCLEAR ANTIBODIES (test code = POSITIVE 3506) SEDIMENTATION [id number] 00:00:00 Test Item Value Reference Range Interpretation Comments SEDIMENTATION RATE (test code = 5 MM/HOUR 1017) SEDIMENTATION [id number] 00:00:00 Test Item Value Reference Range Interpretation Comments SEDIMENTATION RATE (test code = 5 MM/HOUR 1017) URIC [id number] 00:00:00 Test Item Value Reference Range Interpretation Comments URIC ACID (test code = 2233) 4.9 MG/DL URIC [id number] 00:00:00 Test Item Value Reference Range Interpretation Comments URIC ACID (test code = 2233) 4.9 MG/DL [id number] 00:00:00 Test Item Value Reference Range Interpretation Comments TSH, THIRD GENERATION (test code 0.501 UIU/ML = 2821) [id number] 00:00:00 Test Item Value Reference Range Interpretation Comments TSH, THIRD GENERATION (test code 0.501 UIU/ML = 2821) [id number] 00:00:00 Test Item Value Reference Range Interpretation Comments TSH, THIRD GENERATION (test code 0.501 UIU/ML = 2821) COMPREHENSIVE METABOLIC [id number] 00:00:00 Test Item Value Reference Range Interpretation Comments GLUCOSE (test code = 2217) 86 MG/DL BUN (test code = 2208) 14 MG/DL CREATININE (test code = 2214) 1.03 MG/DL eGFR AMER. (test code 70 ML/MIN/1.73 = 19986) eGFR NON- AMER. (test 60 ML/MIN/1.73 code = 84795) CALC BUN/CREAT (test code = 14 RATIO [...] code = 2219) 34 U/L COMPREHENSIVE METABOLIC [id number] 00:00:00 Test Item Value Reference Range Interpretation Comments GLUCOSE (test code = 2217) 86 MG/DL BUN (test code = 2208) 14 MG/DL CREATININE (test code = 2214) 1.03 MG/DL eGFR AMER. (test code 70 ML/MIN/1.73 = 65231) eGFR NON- AMER. (test 60 ML/MIN/1.73 code = 73416) CALC BUN/CREAT (test code = 14 RATIO [...] code = 2219) 34 U/L CBC W/AUTO [id number] 00:00:00 Test Item Value Reference Range Interpretation [...] NUCLEATED RBCS (test code = 0.00 K/UL 79202) CBC W/AUTO [id number] 00:00:00 Test Item Value Reference Range Interpretation [...] NUCLEATED RBCS (test code = 0.00 K/UL 23077) CBC W/AUTO [id number] 00:00:00 Test Item Value Reference Range Interpretation [...] NUCLEATED RBCS (test code = 0.00 K/UL 14850) RHEUMATOID FACTOR, [id number] 00:00:00 Test Item Value Reference Range Interpretation Comments RHEUMATOID FACTOR, QUANT (test code <10 IU/ML = 3502) RHEUMATOID FACTOR, [id number] 00:00:00 Test Item Value Reference Range Interpretation Comments RHEUMATOID FACTOR, QUANT (test code <10 IU/ML = 3502) RHEUMATOID FACTOR, [id number] 00:00:00 Test Item Value Reference Range Interpretation Comments RHEUMATOID FACTOR, QUANT (test code <10 IU/ML = 3502) C-REACTIVE [id number] 00:00:00 Test Item Value Reference Range Interpretation Comments C-REACTIVE PROTEIN (test code = <0.3 MG/DL 3513) C-REACTIVE [id number] 00:00:00 Test Item Value Reference Range Interpretation Comments C-REACTIVE PROTEIN (test code = <0.3 MG/DL 3513) RACHEL (ANTI-NUCLEAR AB) WITH REFLEX [id number] 00:00:00 Test Item Value Reference Range Interpretation Comments ANTI-NUCLEAR ANTIBODIES (test code = POSITIVE 3506) RACHEL (ANTI-NUCLEAR AB) WITH REFLEX [id number] 00:00:00 Test Item Value Reference Range Interpretation Comments ANTI-NUCLEAR ANTIBODIES (test code = POSITIVE 3506) SEDIMENTATION [id number] 00:00:00 Test Item Value Reference Range Interpretation Comments SEDIMENTATION RATE (test code = 5 MM/HOUR 1017) SEDIMENTATION [id number] 00:00:00 Test Item Value Reference Range Interpretation Comments SEDIMENTATION RATE (test code = 5 MM/HOUR 1017) URIC [id number] 00:00:00 Test Item Value Reference Range Interpretation Comments URIC ACID (test code = 2233) 4.9 MG/DL URIC [id number] 00:00:00 Test Item Value Reference Range Interpretation Comments URIC ACID (test code = 2233) 4.9 MG/DL [id number] 00:00:00 Test Item Value Reference Range Interpretation Comments TSH, THIRD GENERATION (test code 0.501 UIU/ML = 2821) [id number] 00:00:00 Test Item Value Reference Range Interpretation Comments TSH, THIRD GENERATION (test code 0.501 UIU/ML = 2821) [id number] 00:00:00 Test Item Value Reference Range Interpretation Comments TSH, THIRD GENERATION (test code 0.501 UIU/ML = 2821) COMPREHENSIVE METABOLIC [id number] 00:00:00 Test Item Value Reference Range Interpretation Comments GLUCOSE (test code = 2217) 86 MG/DL BUN (test code = 2208) 14 MG/DL CREATININE (test code = 2214) 1.03 MG/DL eGFR AMER. (test code 70 ML/MIN/1.73 = 81045) eGFR NON- AMER. (test 60 ML/MIN/1.73 code = 68872) CALC BUN/CREAT (test code = 14 RATIO [...] code = 2219) 34 U/L COMPREHENSIVE METABOLIC [id number] 00:00:00 Test Item Value Reference Range Interpretation Comments GLUCOSE (test code = 2217) 86 MG/DL BUN (test code = 2208) 14 MG/DL CREATININE (test code = 2214) 1.03 MG/DL eGFR AMER. (test code 70 ML/MIN/1.73 = 51115) eGFR NON- AMER. (test 60 ML/MIN/1.73 code = 77778) CALC BUN/CREAT (test code = 14 RATIO [...] code = 2219) 34 U/L CBC W/AUTO [id number] 00:00:00 Test Item Value Reference Range Interpretation [...] NUCLEATED RBCS (test code = 0.00 K/UL 35550) CBC W/AUTO [id number] 00:00:00 Test Item Value Reference Range Interpretation [...] NUCLEATED RBCS (test code = 0.00 K/UL 96209) CBC W/AUTO [id number] 00:00:00 Test Item Value Reference Range Interpretation [...] NUCLEATED RBCS (test code = 0.00 K/UL 29414) RHEUMATOID FACTOR, [id number] 00:00:00 Test Item Value Reference Range Interpretation Comments RHEUMATOID FACTOR, QUANT (test code <10 IU/ML = 3502) RHEUMATOID FACTOR, [id number] 00:00:00 Test Item Value Reference Range Interpretation Comments RHEUMATOID FACTOR, QUANT (test code <10 IU/ML = 3502) RHEUMATOID FACTOR, [id number] 00:00:00 Test Item Value Reference Range Interpretation Comments RHEUMATOID FACTOR, QUANT (test code <10 IU/ML = 3502) C-REACTIVE [id number] 00:00:00 Test Item Value Reference Range Interpretation Comments C-REACTIVE PROTEIN (test code = <0.3 MG/DL 3513) C-REACTIVE [id number] 00:00:00 Test Item Value Reference Range Interpretation Comments C-REACTIVE PROTEIN (test code = <0.3 MG/DL 3513) RACHEL (ANTI-NUCLEAR AB) WITH REFLEX [id number] 00:00:00 Test Item Value Reference Range Interpretation Comments ANTI-NUCLEAR ANTIBODIES (test code = POSITIVE 3506) RACHEL (ANTI-NUCLEAR AB) WITH REFLEX [id number] 00:00:00 Test Item Value Reference Range Interpretation Comments ANTI-NUCLEAR ANTIBODIES (test code = POSITIVE 3506) SEDIMENTATION [id number] 00:00:00 Test Item Value Reference Range Interpretation Comments SEDIMENTATION RATE (test code = 5 MM/HOUR 1017) SEDIMENTATION [id number] 00:00:00 Test Item Value Reference Range Interpretation Comments SEDIMENTATION RATE (test code = 5 MM/HOUR 1017) URIC [id number] 00:00:00 Test Item Value Reference Range Interpretation Comments URIC ACID (test code = 2233) 4.9 MG/DL URIC [id number] 00:00:00 Test Item Value Reference Range Interpretation Comments URIC ACID (test code = 2233) 4.9 MG/DL [id number] 00:00:00 Test Item Value Reference Range Interpretation Comments TSH, THIRD GENERATION (test code 0.501 UIU/ML = 2821) [id number] 00:00:00 Test Item Value Reference Range Interpretation Comments TSH, THIRD GENERATION (test code 0.501 UIU/ML = 2821) [id number] 00:00:00 Test Item Value Reference Range Interpretation Comments TSH, THIRD GENERATION (test code 0.501 UIU/ML = 2821) COMPREHENSIVE METABOLIC [id number] 00:00:00 Test Item Value Reference Range Interpretation Comments GLUCOSE (test code = 2217) 86 MG/DL BUN (test code = 2208) 14 MG/DL CREATININE (test code = 2214) 1.03 MG/DL eGFR AMER. (test code 70 ML/MIN/1.73 = 08598) eGFR NON- AMER. (test 60 ML/MIN/1.73 code = 69768) CALC BUN/CREAT (test code = 14 RATIO [...] code = 2219) 34 U/L COMPREHENSIVE METABOLIC [id number] 00:00:00 Test Item Value Reference Range Interpretation Comments GLUCOSE (test code = 2217) 86 MG/DL BUN (test code = 2208) 14 MG/DL CREATININE (test code = 2214) 1.03 MG/DL eGFR AMER. (test code 70 ML/MIN/1.73 = 60134) eGFR NON- AMER. (test 60 ML/MIN/1.73 code = 11277) CALC BUN/CREAT (test code = 14 RATIO [...] code = 2219) 34 U/L CBC W/AUTO [id number] 00:00:00 Test Item Value Reference Range Interpretation [...] NUCLEATED RBCS (test code = 0.00 K/UL 32788) CBC W/AUTO [id number] 00:00:00 Test Item Value Reference Range Interpretation [...] NUCLEATED RBCS (test code = 0.00 K/UL 85691) CBC W/AUTO [id number] 00:00:00 Test Item Value Reference Range Interpretation [...] NUCLEATED RBCS (test code = 0.00 K/UL 35245) RHEUMATOID FACTOR, [id number] 00:00:00 Test Item Value Reference Range Interpretation Comments RHEUMATOID FACTOR, QUANT (test code <10 IU/ML = 3502) RHEUMATOID FACTOR, [id number] 00:00:00 Test Item Value Reference Range Interpretation Comments RHEUMATOID FACTOR, QUANT (test code <10 IU/ML = 3502) RHEUMATOID FACTOR, [id number] 00:00:00 Test Item Value Reference Range Interpretation Comments RHEUMATOID FACTOR, QUANT (test code <10 IU/ML = 3502) C-REACTIVE [id number] 00:00:00 Test Item Value Reference Range Interpretation Comments C-REACTIVE PROTEIN (test code = <0.3 MG/DL 3513) C-REACTIVE [id number] 00:00:00 Test Item Value Reference Range Interpretation Comments C-REACTIVE PROTEIN (test code = <0.3 MG/DL 3513) RACHEL (ANTI-NUCLEAR AB) WITH REFLEX [id number] 00:00:00 Test Item Value Reference Range Interpretation Comments ANTI-NUCLEAR ANTIBODIES (test code = POSITIVE 3506) RACHEL (ANTI-NUCLEAR AB) WITH REFLEX [id number] 00:00:00 Test Item Value Reference Range Interpretation Comments ANTI-NUCLEAR ANTIBODIES (test code = POSITIVE 3506) SEDIMENTATION [id number] 00:00:00 Test Item Value Reference Range Interpretation Comments SEDIMENTATION RATE (test code = 5 MM/HOUR 1017) SEDIMENTATION [id number] 00:00:00 Test Item Value Reference Range Interpretation Comments SEDIMENTATION RATE (test code = 5 MM/HOUR 1017) URIC [id number] 00:00:00 Test Item Value Reference Range Interpretation Comments URIC ACID (test code = 2233) 4.9 MG/DL URIC [id number] 00:00:00 Test Item Value Reference Range Interpretation Comments URIC ACID (test code = 2233) 4.9 MG/DL [id number] 00:00:00 Test Item Value Reference Range Interpretation Comments TSH, THIRD GENERATION (test code 0.501 UIU/ML = 2821) [id number] 00:00:00 Test Item Value Reference Range Interpretation Comments TSH, THIRD GENERATION (test code 0.501 UIU/ML = 2821) [id number] 00:00:00 Test Item Value Reference Range Interpretation Comments TSH, THIRD GENERATION (test code 0.501 UIU/ML = 2821) COMPREHENSIVE METABOLIC [id number] 00:00:00 Test Item Value Reference Range Interpretation Comments GLUCOSE (test code = 2217) 86 MG/DL BUN (test code = 2208) 14 MG/DL CREATININE (test code = 2214) 1.03 MG/DL eGFR AMER. (test code 70 ML/MIN/1.73 = 85153) eGFR NON- AMER. (test 60 ML/MIN/1.73 code = 62381) CALC BUN/CREAT (test code = 14 RATIO [...] CALC GLOBULIN (test code = 2.3 G/DL 0) CALC A/G RATIO (test code = 2.0 RATIO 4) BILIRUBIN, TOTAL (test code = 0.5 MG/DL 2206) ALKALINE PHOSPHATASE (test 112 U/L code = 2204) AST (test code = 2218) 44 U/L ALT (test code = 2219) 34 U/L COMPREHENSIVE METABOLIC [id number] 00:00:00 Test Item Value Reference Range Interpretation Comments GLUCOSE (test code = 2217) 86 MG/DL BUN (test code = 2208) 14 MG/DL CREATININE (test code = 2214) 1.03 MG/DL eGFR AMER. (test code 70 ML/MIN/1.73 = 69684) eGFR NON- AMER. (test 60 ML/MIN/1.73 code = 97727) CALC BUN/CREAT (test code = 14 RATIO [...] CALC GLOBULIN (test code = 2.3 G/DL 0) CALC A/G RATIO (test code = 2.0 RATIO 4) BILIRUBIN, TOTAL (test code = 0.5 MG/DL 2206) ALKALINE PHOSPHATASE (test 112 U/L code = 2204) AST (test code = 2218) 44 U/L ALT (test code = 2219) 34 U/L CBC W/AUTO [id number] 00:00:00 Test Item Value Reference Range Interpretation [...] NUCLEATED RBCS (test code = 0.00 K/UL 00928) CBC W/AUTO [id number] 00:00:00 Test Item Value Reference Range Interpretation [...] NUCLEATED RBCS (test code = 0.00 K/UL 89155) CBC W/AUTO [id number] 00:00:00 Test Item Value Reference Range Interpretation [...] NUCLEATED RBCS (test code = 0.00 K/UL 06263) RHEUMATOID FACTOR, [id number] 00:00:00 Test Item Value Reference Range Interpretation Comments RHEUMATOID FACTOR, QUANT (test code <10 IU/ML = 3502) RHEUMATOID FACTOR, [id number] 00:00:00 Test Item Value Reference Range Interpretation Comments RHEUMATOID FACTOR, QUANT (test code <10 IU/ML = 3502) RHEUMATOID FACTOR, [id number] 00:00:00 Test Item Value Reference Range Interpretation Comments RHEUMATOID FACTOR, QUANT (test code <10 IU/ML = 3502) C-REACTIVE [id number] 00:00:00 Test Item Value Reference Range Interpretation Comments C-REACTIVE PROTEIN (test code = <0.3 MG/DL 3513) C-REACTIVE [id number] 00:00:00 Test Item Value Reference Range Interpretation Comments C-REACTIVE PROTEIN (test code = <0.3 MG/DL 3513) RACHEL (ANTI-NUCLEAR AB) WITH REFLEX [id number] 00:00:00 Test Item Value Reference Range Interpretation Comments ANTI-NUCLEAR ANTIBODIES (test code = POSITIVE 3506) RACHEL (ANTI-NUCLEAR AB) WITH REFLEX [id number] 00:00:00 Test Item Value Reference Range Interpretation Comments ANTI-NUCLEAR ANTIBODIES (test code = POSITIVE 3506) SEDIMENTATION [id number] 00:00:00 Test Item Value Reference Range Interpretation Comments SEDIMENTATION RATE (test code = 5 MM/HOUR 1017) SEDIMENTATION [id number] 00:00:00 Test Item Value Reference Range Interpretation Comments SEDIMENTATION RATE (test code = 5 MM/HOUR 1017) URIC [id number] 00:00:00 Test Item Value Reference Range Interpretation Comments URIC ACID (test code = 2233) 4.9 MG/DL URIC [id number] 00:00:00 Test Item Value Reference Range Interpretation Comments URIC ACID (test code = 2233) 4.9 MG/DL [id number] 00:00:00 Test Item Value Reference Range Interpretation Comments TSH, THIRD GENERATION (test code 0.501 UIU/ML = 2821) [id number] 00:00:00 Test Item Value Reference Range Interpretation Comments TSH, THIRD GENERATION (test code 0.501 UIU/ML = 2821) [id number] 00:00:00 Test Item Value Reference Range Interpretation Comments TSH, THIRD GENERATION (test code 0.501 UIU/ML = 2821) COMPREHENSIVE METABOLIC [id number] 00:00:00 Test Item Value Reference Range Interpretation Comments GLUCOSE (test code = 2217) 86 MG/DL BUN (test code = 2208) 14 MG/DL CREATININE (test code = 2214) 1.03 MG/DL eGFR AMER. (test code 70 ML/MIN/1.73 = 82508) eGFR NON- AMER. (test 60 ML/MIN/1.73 code = 22650) CALC BUN/CREAT (test code = 14 RATIO [...] CALC GLOBULIN (test code = 2.3 G/DL 0) CALC A/G RATIO (test code = 2.0 RATIO 4) BILIRUBIN, TOTAL (test code = 0.5 MG/DL 2206) ALKALINE PHOSPHATASE (test 112 U/L code = 2204) AST (test code = 2218) 44 U/L ALT (test code = 2219) 34 U/L COMPREHENSIVE METABOLIC [id number] 00:00:00 Test Item Value Reference Range Interpretation Comments GLUCOSE (test code = 2217) 86 MG/DL BUN (test code = 2208) 14 MG/DL CREATININE (test code = 2214) 1.03 MG/DL eGFR AMER. (test code 70 ML/MIN/1.73 = 02025) eGFR NON- AMER. (test 60 ML/MIN/1.73 code = 82415) CALC BUN/CREAT (test code = 14 RATIO [...] code = 2219) 34 U/L CBC W/AUTO [id number] 00:00:00 Test Item Value Reference Range Interpretation [...] NUCLEATED RBCS (test code = 0.00 K/UL 77046) CBC W/AUTO [id number] 00:00:00 Test Item Value Reference Range Interpretation [...] NUCLEATED RBCS (test code = 0.00 K/UL 97809) CBC W/AUTO [id number] 00:00:00 Test Item Value Reference Range Interpretation [...] NUCLEATED RBCS (test code = 0.00 K/UL 13527) RHEUMATOID FACTOR, [id number] 00:00:00 Test Item Value Reference Range Interpretation Comments RHEUMATOID FACTOR, QUANT (test code <10 IU/ML = 3502) RHEUMATOID FACTOR, [id number] 00:00:00 Test Item Value Reference Range Interpretation Comments RHEUMATOID FACTOR, QUANT (test code <10 IU/ML = 3502) RHEUMATOID FACTOR, [id number] 00:00:00 Test Item Value Reference Range Interpretation Comments RHEUMATOID FACTOR, QUANT (test code <10 IU/ML = 3502) C-REACTIVE [id number] 00:00:00 Test Item Value Reference Range Interpretation Comments C-REACTIVE PROTEIN (test code = <0.3 MG/DL 3513) C-REACTIVE [id number] 00:00:00 Test Item Value Reference Range Interpretation Comments C-REACTIVE PROTEIN (test code = <0.3 MG/DL 3513) RACHEL (ANTI-NUCLEAR AB) WITH REFLEX [id number] 00:00:00 Test Item Value Reference Range Interpretation Comments ANTI-NUCLEAR ANTIBODIES (test code = POSITIVE 3506) RACHEL (ANTI-NUCLEAR AB) WITH REFLEX [id number] 00:00:00 Test Item Value Reference Range Interpretation Comments ANTI-NUCLEAR ANTIBODIES (test code = POSITIVE 3506) SEDIMENTATION [id number] 00:00:00 Test Item Value Reference Range Interpretation Comments SEDIMENTATION RATE (test code = 5 MM/HOUR 1017) SEDIMENTATION [id number] 00:00:00 Test Item Value Reference Range Interpretation Comments SEDIMENTATION RATE (test code = 5 MM/HOUR 1017) URIC [id number] 00:00:00 Test Item Value Reference Range Interpretation Comments URIC ACID (test code = 2233) 4.9 MG/DL URIC [id number] 00:00:00 Test Item Value Reference Range Interpretation Comments URIC ACID (test code = 2233) 4.9 MG/DL [id number] 00:00:00 Test Item Value Reference Range Interpretation Comments TSH, THIRD GENERATION (test code 0.501 UIU/ML = 2821) [id number] 00:00:00 Test Item Value Reference Range Interpretation Comments TSH, THIRD GENERATION (test code 0.501 UIU/ML = 2821) [id number] 00:00:00 Test Item Value Reference Range Interpretation Comments TSH, THIRD GENERATION (test code 1.460 UIU/ML = 2821) [id number] 00:00:00 Test Item Value Reference Range Interpretation Comments TSH, THIRD GENERATION (test code 1.460 UIU/ML = 2821) [id number] 00:00:00 Test Item Value Reference Range Interpretation Comments TSH, THIRD GENERATION (test code 1.460 UIU/ML = 2821) [id number] 00:00:00 Test Item Value Reference Range Interpretation Comments TSH, THIRD GENERATION (test code 1.460 UIU/ML = 2821) [id number] 00:00:00 Test Item Value Reference Range Interpretation Comments TSH, THIRD GENERATION (test code 1.460 UIU/ML = 2821) [id number] 00:00:00 Test Item Value Reference Range Interpretation Comments TSH, THIRD GENERATION (test code 1.460 UIU/ML = 2821) [id number] 00:00:00 Test Item Value Reference Range Interpretation Comments TSH, THIRD GENERATION (test code 1.460 UIU/ML = 2821) [id number] 00:00:00 Test Item Value Reference Range Interpretation Comments TSH, THIRD GENERATION (test code 1.460 UIU/ML = 2821) [id number] 00:00:00 Test Item Value Reference Range Interpretation Comments TSH, THIRD GENERATION (test code 1.460 UIU/ML = 2821) [id number] 00:00:00 Test Item Value Reference Range Interpretation Comments TSH, THIRD GENERATION (test code 1.460 UIU/ML = 2821) [id number] 00:00:00 Test Item Value Reference Range Interpretation Comments TSH, THIRD GENERATION (test code 1.460 UIU/ML = 2821) [id number] 00:00:00 Test Item Value Reference Range Interpretation Comments TSH, THIRD GENERATION (test code 1.460 UIU/ML = 2821) [id number] 00:00:00 Test Item Value Reference Range Interpretation Comments TSH, THIRD GENERATION (test code 1.460 UIU/ML = 2821) [id number] 00:00:00 Test Item Value Reference Range Interpretation Comments TSH, THIRD GENERATION (test code 1.460 UIU/ML = 2821) [id number] 00:00:00 Test Item Value Reference Range Interpretation Comments TSH, THIRD GENERATION (test code 1.460 UIU/ML = 2821) [id number] 00:00:00 Test Item Value Reference Range Interpretation Comments TSH, THIRD GENERATION (test code 1.460 UIU/ML = 2821) [id number] 00:00:00 Test Item Value Reference Range Interpretation Comments TSH, THIRD GENERATION (test code 1.460 UIU/ML = 2821) [id number] 00:00:00 Test Item Value Reference Range Interpretation Comments TSH, THIRD GENERATION (test code 1.460 UIU/ML = 2821) CBC W/AUTO [id number] 00:00:00 Test Item Value Reference Range Interpretation [...] code = 1015) 301 K/UL COMPREHENSIVE METABOLIC [id number] 00:00:00 Test Item Value Reference Range Interpretation Comments GLUCOSE (test code = 2217) 86 MG/DL BUN (test code = 2208) 14 MG/DL CREATININE (test code = 2214) 1.00 MG/DL eGFR AMER. (test code 72 ML/MIN/1.73 = 44481) eGFR NON- AMER. (test 62 ML/MIN/1.73 code = 32196) CALC BUN/CREAT (test code = 14 RATIO [...] code = 2219) 20 U/L COMPREHENSIVE METABOLIC [id number] 00:00:00 Test Item Value Reference Range Interpretation Comments GLUCOSE (test code = 2217) 86 MG/DL BUN (test code = 2208) 14 MG/DL CREATININE (test code = 2214) 1.00 MG/DL eGFR AMER. (test code 72 ML/MIN/1.73 = 91088) eGFR NON- AMER. (test 62 ML/MIN/1.73 code = 03246) CALC BUN/CREAT (test code = 14 RATIO 5) SODIUM (test code = 2231) 144 MEQ/L [...] RATIO 2233) BILIRUBIN, TOTAL (test code = 0.2 MG/DL 2206) ALKALINE PHOSPHATASE (test 95 U/L code = 2204) AST (test code = 2218) 30 U/L ALT (test code = 2219) 20 U/L [id number] 00:00:00 Test Item Value Reference Range Interpretation Comments TSH, THIRD GENERATION (test >100.000 UIU/ML code = 2821) [id number] 00:00:00 Test Item Value Reference Range Interpretation Comments TSH, THIRD GENERATION (test >100.000 UIU/ML code = 2821) [id number] 00:00:00 Test Item Value Reference Range Interpretation Comments TSH, THIRD GENERATION (test >100.000 UIU/ML code = 2821) VITAMIN D, 25 [id number] 00:00:00 Test Item Value Reference Range Interpretation Comments VITAMIN D, 25 OH (test code = 4958) 24 NG/ML VITAMIN D, 25 [id number] 00:00:00 Test Item Value Reference Range Interpretation Comments VITAMIN D, 25 OH (test code = 4958) 24 NG/ML CBC W/AUTO [id number] 00:00:00 Test Item Value Reference Range Interpretation [...] code = 1015) 301 K/UL CBC W/AUTO [id number] 00:00:00 Test Item Value Reference Range Interpretation [...] code = 1015) 301 K/UL CBC W/AUTO [id number] 00:00:00 Test Item Value Reference Range Interpretation [...] code = 1015) 301 K/UL COMPREHENSIVE METABOLIC [id number] 00:00:00 Test Item Value Reference Range Interpretation Comments GLUCOSE (test code = 2217) 86 MG/DL BUN (test code = 2208) 14 MG/DL CREATININE (test code = 2214) 1.00 MG/DL eGFR AMER. (test code 72 ML/MIN/1.73 = 11227) eGFR NON- AMER. (test 62 ML/MIN/1.73 code = 79099) CALC BUN/CREAT (test code = 14 RATIO [...] CALC GLOBULIN (test code = 2.3 G/DL 224) CALC A/G RATIO (test code = 2.0 RATIO 2234) BILIRUBIN, TOTAL (test code = 0.2 MG/DL 2206) ALKALINE PHOSPHATASE (test 95 U/L code = 2204) AST (test code = 2218) 30 U/L ALT (test code = 2219) 20 U/L COMPREHENSIVE METABOLIC [id number] 00:00:00 Test Item Value Reference Range Interpretation Comments GLUCOSE (test code = 2217) 86 MG/DL BUN (test code = 2208) 14 MG/DL CREATININE (test code = 2214) 1.00 MG/DL eGFR AMER. (test code 72 ML/MIN/1.73 = 12656) eGFR NON- AMER. (test 62 ML/MIN/1.73 code = 23600) CALC BUN/CREAT (test code = 14 RATIO [...] BILIRUBIN, TOTAL (test code = 0.2 MG/DL 2207) ALKALINE PHOSPHATASE (test 95 U/L code = 2204) AST (test code = 2218) 30 U/L ALT (test code = 2219) 20 U/L [id number] 00:00:00 Test Item Value Reference Range Interpretation Comments TSH, THIRD GENERATION (test >100.000 UIU/ML code = 2821) [id number] 00:00:00 Test Item Value Reference Range Interpretation Comments TSH, THIRD GENERATION (test >100.000 UIU/ML code = 2821) [id number] 00:00:00 Test Item Value Reference Range Interpretation Comments TSH, THIRD GENERATION (test >100.000 UIU/ML code = 2821) VITAMIN D, 25 [id number] 00:00:00 Test Item Value Reference Range Interpretation Comments VITAMIN D, 25 OH (test code = 4958) 24 NG/ML VITAMIN D, 25 [id number] 00:00:00 Test Item Value Reference Range Interpretation Comments VITAMIN D, 25 OH (test code = 4958) 24 NG/ML CBC W/AUTO [id number] 00:00:00 Test Item Value Reference Range Interpretation [...] code = 1015) 301 K/UL CBC W/AUTO [id number] 00:00:00 Test Item Value Reference Range Interpretation [...] code = 1015) 301 K/UL CBC W/AUTO [id number] 00:00:00 Test Item Value Reference Range Interpretation [...] code = 1015) 301 K/UL COMPREHENSIVE METABOLIC [id number] 00:00:00 Test Item Value Reference Range Interpretation Comments GLUCOSE (test code = 2217) 86 MG/DL BUN (test code = 2208) 14 MG/DL CREATININE (test code = 2214) 1.00 MG/DL eGFR AMER. (test code 72 ML/MIN/1.73 = 39171) eGFR NON- AMER. (test 62 ML/MIN/1.73 code = 43767) CALC BUN/CREAT (test code = 14 RATIO [...] code = 2219) 20 U/L COMPREHENSIVE METABOLIC [id number] 00:00:00 Test Item Value Reference Range Interpretation Comments GLUCOSE (test code = 2217) 86 MG/DL BUN (test code = 2208) 14 MG/DL CREATININE (test code = 2214) 1.00 MG/DL eGFR AMER. (test code 72 ML/MIN/1.73 = 74127) eGFR NON- AMER. (test 62 ML/MIN/1.73 code = 32659) CALC BUN/CREAT (test code = 14 RATIO [...] ALT (test code = 2219) 20 U/L [id number] 00:00:00 Test Item Value Reference Range Interpretation Comments TSH, THIRD GENERATION (test >100.000 UIU/ML code = 2821) [id number] 00:00:00 Test Item Value Reference Range Interpretation Comments TSH, THIRD GENERATION (test >100.000 UIU/ML code = 2821) [id number] 00:00:00 Test Item Value Reference Range Interpretation Comments TSH, THIRD GENERATION (test >100.000 UIU/ML code = 2821) VITAMIN D, 25 [id number] 00:00:00 Test Item Value Reference Range Interpretation Comments VITAMIN D, 25 OH (test code = 4958) 24 NG/ML VITAMIN D, 25 [id number] 00:00:00 Test Item Value Reference Range Interpretation Comments VITAMIN D, 25 OH (test code = 4958) 24 NG/ML CBC W/AUTO [id number] 00:00:00 Test Item Value Reference Range Interpretation [...] code = 1015) 301 K/UL CBC W/AUTO [id number] 00:00:00 Test Item Value Reference Range Interpretation [...] code = 1015) 301 K/UL CBC W/AUTO [id number] 00:00:00 Test Item Value Reference Range Interpretation [...] code = 1015) 301 K/UL COMPREHENSIVE METABOLIC [id number] 00:00:00 Test Item Value Reference Range Interpretation Comments GLUCOSE (test code = 2217) 86 MG/DL BUN (test code = 2208) 14 MG/DL CREATININE (test code = 2214) 1.00 MG/DL eGFR AMER. (test code 72 ML/MIN/1.73 = 54107) eGFR NON- AMER. (test 62 ML/MIN/1.73 code = 24942) CALC BUN/CREAT (test code = 14 RATIO [...] code = 2219) 20 U/L COMPREHENSIVE METABOLIC [id number] 00:00:00 Test Item Value Reference Range Interpretation Comments GLUCOSE (test code = 2217) 86 MG/DL BUN (test code = 2208) 14 MG/DL CREATININE (test code = 2214) 1.00 MG/DL eGFR AMER. (test code 72 ML/MIN/1.73 = 30080) eGFR NON- AMER. (test 62 ML/MIN/1.73 code = 35261) CALC BUN/CREAT (test code = 14 RATIO [...] RATIO 4) BILIRUBIN, TOTAL (test code = 0.2 MG/DL 2206) ALKALINE PHOSPHATASE (test 95 U/L code = 2204) AST (test code = 2218) 30 U/L ALT (test code = 2219) 20 U/L [id number] 00:00:00 Test Item Value Reference Range Interpretation Comments TSH, THIRD GENERATION (test >100.000 UIU/ML code = 2821) [id number] 00:00:00 Test Item Value Reference Range Interpretation Comments TSH, THIRD GENERATION (test >100.000 UIU/ML code = 2821) [id number] 00:00:00 Test Item Value Reference Range Interpretation Comments TSH, THIRD GENERATION (test >100.000 UIU/ML code = 2821) VITAMIN D, 25 [id number] 00:00:00 Test Item Value Reference Range Interpretation Comments VITAMIN D, 25 OH (test code = 4958) 24 NG/ML VITAMIN D, 25 [id number] 00:00:00 Test Item Value Reference Range Interpretation Comments VITAMIN D, 25 OH (test code = 4958) 24 NG/ML CBC W/AUTO [id number] 00:00:00 Test Item Value Reference Range Interpretation [...] code = 1015) 301 K/UL CBC W/AUTO [id number] 00:00:00 Test Item Value Reference Range Interpretation [...] code = 1015) 301 K/UL CBC W/AUTO [id number] 00:00:00 Test Item Value Reference Range Interpretation [...] code = 1015) 301 K/UL COMPREHENSIVE METABOLIC [id number] 00:00:00 Test Item Value Reference Range Interpretation Comments GLUCOSE (test code = 2217) 86 MG/DL BUN (test code = 2208) 14 MG/DL CREATININE (test code = 2214) 1.00 MG/DL eGFR AMER. (test code 72 ML/MIN/1.73 = 15648) eGFR NON- AMER. (test 62 ML/MIN/1.73 code = 49078) CALC BUN/CREAT (test code = 14 RATIO [...] code = 2219) 20 U/L COMPREHENSIVE METABOLIC [id number] 00:00:00 Test Item Value Reference Range Interpretation Comments GLUCOSE (test code = 2217) 86 MG/DL BUN (test code = 2208) 14 MG/DL CREATININE (test code = 2214) 1.00 MG/DL eGFR AMER. (test code 72 ML/MIN/1.73 = 11140) eGFR NON- AMER. (test 62 ML/MIN/1.73 code = 87215) CALC BUN/CREAT (test code = 14 RATIO 5) SODIUM (test code = 2231) 144 MEQ/L [...] RATIO 2233) BILIRUBIN, TOTAL (test code = 0.2 MG/DL 2206) ALKALINE PHOSPHATASE (test 95 U/L code = 220) AST (test code = 2218) 30 U/L ALT (test code = 2219) 20 U/L [id number] 00:00:00 Test Item Value Reference Range Interpretation Comments TSH, THIRD GENERATION (test >100.000 UIU/ML code = 2821) [id number] 00:00:00 Test Item Value Reference Range Interpretation Comments TSH, THIRD GENERATION (test >100.000 UIU/ML code = 2821) [id number] 00:00:00 Test Item Value Reference Range Interpretation Comments TSH, THIRD GENERATION (test >100.000 UIU/ML code = 2821) VITAMIN D, 25 [id number] 00:00:00 Test Item Value Reference Range Interpretation Comments VITAMIN D, 25 OH (test code = 4958) 24 NG/ML VITAMIN D, 25 [id number] 00:00:00 Test Item Value Reference Range Interpretation Comments VITAMIN D, 25 OH (test code = 4958) 24 NG/ML CBC W/AUTO [id number] 00:00:00 Test Item Value Reference Range Interpretation [...] code = 1015) 301 K/UL CBC W/AUTO [id number] 00:00:00 Test Item Value Reference Range Interpretation [...] code = 1015) 301 K/UL CBC W/AUTO [id number] 00:00:00 Test Item Value Reference Range Interpretation [...] code = 1015) 301 K/UL COMPREHENSIVE METABOLIC [id number] 00:00:00 Test Item Value Reference Range Interpretation Comments GLUCOSE (test code = 2217) 86 MG/DL BUN (test code = 2208) 14 MG/DL CREATININE (test code = 2214) 1.00 MG/DL eGFR AMER. (test code 72 ML/MIN/1.73 = 39437) eGFR NON- AMER. (test 62 ML/MIN/1.73 code = 03469) CALC BUN/CREAT (test code = 14 RATIO [...] code = 2219) 20 U/L COMPREHENSIVE METABOLIC [id number] 00:00:00 Test Item Value Reference Range Interpretation Comments GLUCOSE (test code = 2217) 86 MG/DL BUN (test code = 2208) 14 MG/DL CREATININE (test code = 2214) 1.00 MG/DL eGFR AMER. (test code 72 ML/MIN/1.73 = 23168) eGFR NON- AMER. (test 62 ML/MIN/1.73 code = 68264) CALC BUN/CREAT (test code = 14 RATIO [...] CALC GLOBULIN (test code = 2.3 G/DL 0) CALC A/G RATIO (test code = 2.0 RATIO 2234) BILIRUBIN, TOTAL (test code = 0.2 MG/DL 2206) ALKALINE PHOSPHATASE (test 95 U/L code = 2204) AST (test code = 2218) 30 U/L ALT (test code = 2219) 20 U/L [id number] 00:00:00 Test Item Value Reference Range Interpretation Comments TSH, THIRD GENERATION (test >100.000 UIU/ML code = 2821) [id number] 00:00:00 Test Item Value Reference Range Interpretation Comments TSH, THIRD GENERATION (test >100.000 UIU/ML code = 2821) [id number] 00:00:00 Test Item Value Reference Range Interpretation Comments TSH, THIRD GENERATION (test >100.000 UIU/ML code = 2821) VITAMIN D, 25 [id number] 00:00:00 Test Item Value Reference Range Interpretation Comments VITAMIN D, 25 OH (test code = 4958) 24 NG/ML VITAMIN D, 25 [id number] 00:00:00 Test Item Value Reference Range Interpretation Comments VITAMIN D, 25 OH (test code = 4958) 24 NG/ML CBC W/AUTO [id number] 00:00:00 Test Item Value Reference Range Interpretation [...] code = 1015) 301 K/UL CBC W/AUTO [id number] 00:00:00 Test Item Value Reference Range Interpretation [...] COUNT (test code = 1015) 301 K/UL XR SHOULDER 2+ VW [id number] 20:06:12 No acute bony abnormality. Mild acromioclavicular [...] study and agree with the abovereport.[facility] [id number] 00:00:00 Test Item Value Reference Range Interpretation Comments GLUCOSE (test code = 2217) 79 MG/DL BUN (test code = 2208) 17 MG/DL CREATININE (test code = 2214) 0.78 MG/DL eGFR AMER. (test code 98 ML/MIN/1.73 = 49322) eGFR NON- AMER. (test 85 ML/MIN/1.73 code = 24372) CALC BUN/CREAT (test code = 22 RATIO 2235) SODIUM (test code = 2231) 142 MEQ/L POTASSIUM (test code = 2228) 3.9 MEQ/L CHLORIDE (test code = 2215) 105 MEQ/L CARBON DIOXIDE (test code = 29 MEQ/L 2206) CALCIUM (test code = 2209) [...] code = 2219) 18 U/L COMPREHENSIVE METABOLIC [id number] 00:00:00 Test Item Value Reference Range Interpretation Comments GLUCOSE (test code = 2217) 79 MG/DL BUN (test code = 2208) 17 MG/DL CREATININE (test code = 2214) 0.78 MG/DL eGFR AMER. (test code 98 ML/MIN/1.73 = 08084) eGFR NON- AMER. (test 85 ML/MIN/1.73 code = 71100) CALC BUN/CREAT (test code = 22 RATIO 2235) SODIUM (test code = 2231) 142 MEQ/L POTASSIUM (test code = 2228) 3.9 MEQ/L CHLORIDE (test code = 2215) 105 MEQ/L CARBON DIOXIDE (test code = 29 MEQ/L 2206) CALCIUM (test code = 2209) 9.1 MG/DL PROTEIN, TOTAL (test code = 6.0 G/DL 2229) ALBUMIN (test code = 2201) 4.1 G/DL CALC GLOBULIN (test code = 1.9 G/DL 2240) CALC A/G RATIO (test code = 2.2 RATIO 2234) BILIRUBIN, TOTAL (test code = 0.3 MG/DL 2206) ALKALINE PHOSPHATASE (test 109 U/L code = 2204) AST (test code = 2218) 23 U/L ALT (test code = 2219) 18 U/L CBC W/AUTO [id number] 00:00:00 Test Item Value Reference Range Interpretation [...] code = 1015) 249 K/UL CBC W/AUTO [id number] 00:00:00 Test Item Value Reference Range Interpretation [...] code = 1015) 249 K/UL CBC W/AUTO [id number] 00:00:00 Test Item Value Reference Range Interpretation [...] code = 1015) 249 K/UL RHEUMATOID FACTOR, [id number] 00:00:00 Test Item Value Reference Range Interpretation Comments RHEUMATOID FACTOR, QUANT (test code <10 IU/ML = 3502) RHEUMATOID FACTOR, [id number] 00:00:00 Test Item Value Reference Range Interpretation Comments RHEUMATOID FACTOR, QUANT (test code <10 IU/ML = 3502) RHEUMATOID FACTOR, [id number] 00:00:00 Test Item Value Reference Range Interpretation Comments RHEUMATOID FACTOR, QUANT (test code <10 IU/ML = 3502) VITAMIN D, 25 [id number] 00:00:00 Test Item Value Reference Range Interpretation Comments VITAMIN D, 25 OH (test code = 4958) 24 NG/ML VITAMIN D, 25 [id number] 00:00:00 Test Item Value Reference Range Interpretation Comments VITAMIN D, 25 OH (test code = 4958) 24 NG/ML [id number] 00:00:00 Test Item Value Reference Range Interpretation Comments MAGNESIUM (test code = 2226) 2.0 MG/DL [id number] 00:00:00 Test Item Value Reference Range Interpretation Comments MAGNESIUM (test code = 2226) 2.0 MG/DL [id number] 00:00:00 Test Item Value Reference Range Interpretation Comments MAGNESIUM (test code = 2226) 2.0 MG/DL [id number] 00:00:00 Test Item Value Reference Range Interpretation Comments TSH, THIRD GENERATION (test code 6.220 UIU/ML = 2821) [id number] 00:00:00 Test Item Value Reference Range Interpretation Comments TSH, THIRD GENERATION (test code 6.220 UIU/ML = 2821) [id number] 00:00:00 Test Item Value Reference Range Interpretation Comments TSH, THIRD GENERATION (test code 6.220 UIU/ML = 2821) RACHEL (ANTI-NUCLEAR AB) WITH REFLEX [id number] 00:00:00 Test Item Value Reference Range Interpretation Comments ANTI-NUCLEAR ANTIBODIES (test code = NEGATIVE 3506) RACHEL (ANTI-NUCLEAR AB) WITH REFLEX [id number] 00:00:00 Test Item Value Reference Range Interpretation Comments ANTI-NUCLEAR ANTIBODIES (test code = NEGATIVE 3506) COMPREHENSIVE METABOLIC [id number] 00:00:00 Test Item Value Reference Range Interpretation Comments GLUCOSE (test code = 2217) 79 MG/DL BUN (test code = 2208) 17 MG/DL CREATININE (test code = 2214) 0.78 MG/DL eGFR AMER. (test code 98 ML/MIN/1.73 = 39160) eGFR NON- AMER. (test 85 ML/MIN/1.73 code = 04600) CALC BUN/CREAT (test code = 22 RATIO [...] CALC GLOBULIN (test code = 1.9 G/DL 0) CALC A/G RATIO (test code = 2.2 RATIO 2234) BILIRUBIN, TOTAL (test code = 0.3 MG/DL 2206) ALKALINE PHOSPHATASE (test 109 U/L code = 2204) AST (test code = 2218) 23 U/L ALT (test code = 2219) 18 U/L COMPREHENSIVE METABOLIC [id number] 00:00:00 Test Item Value Reference Range Interpretation Comments GLUCOSE (test code = 2217) 79 MG/DL BUN (test code = 2208) 17 MG/DL CREATININE (test code = 2214) 0.78 MG/DL eGFR AMER. (test code 98 ML/MIN/1.73 = 08666) eGFR NON- AMER. (test 85 ML/MIN/1.73 code = 66157) CALC BUN/CREAT (test code = 22 RATIO [...] CALC GLOBULIN (test code = 1.9 G/DL 224) CALC A/G RATIO (test code = 2.2 RATIO 2234) BILIRUBIN, TOTAL (test code = 0.3 MG/DL 2206) ALKALINE PHOSPHATASE (test 109 U/L code = 2204) AST (test code = 2218) 23 U/L ALT (test code = 2219) 18 U/L CBC W/AUTO [id number] 00:00:00 Test Item Value Reference Range Interpretation [...] code = 1015) 249 K/UL CBC W/AUTO [id number] 00:00:00 Test Item Value Reference Range Interpretation [...] code = 1015) 249 K/UL CBC W/AUTO [id number] 00:00:00 Test Item Value Reference Range Interpretation [...] code = 1015) 249 K/UL RHEUMATOID FACTOR, [id number] 00:00:00 Test Item Value Reference Range Interpretation Comments RHEUMATOID FACTOR, QUANT (test code <10 IU/ML = 3502) RHEUMATOID FACTOR, [id number] 00:00:00 Test Item Value Reference Range Interpretation Comments RHEUMATOID FACTOR, QUANT (test code <10 IU/ML = 3502) RHEUMATOID FACTOR, [id number] 00:00:00 Test Item Value Reference Range Interpretation Comments RHEUMATOID FACTOR, QUANT (test code <10 IU/ML = 3502) VITAMIN D, 25 [id number] 00:00:00 Test Item Value Reference Range Interpretation Comments VITAMIN D, 25 OH (test code = 4958) 24 NG/ML VITAMIN D, 25 [id number] 00:00:00 Test Item Value Reference Range Interpretation Comments VITAMIN D, 25 OH (test code = 4958) 24 NG/ML [id number] 00:00:00 Test Item Value Reference Range Interpretation Comments MAGNESIUM (test code = 2226) 2.0 MG/DL [id number] 00:00:00 Test Item Value Reference Range Interpretation Comments MAGNESIUM (test code = 2226) 2.0 MG/DL [id number] 00:00:00 Test Item Value Reference Range Interpretation Comments MAGNESIUM (test code = 2226) 2.0 MG/DL [id number] 00:00:00 Test Item Value Reference Range Interpretation Comments TSH, THIRD GENERATION (test code 6.220 UIU/ML = 2821) [id number] 00:00:00 Test Item Value Reference Range Interpretation Comments TSH, THIRD GENERATION (test code 6.220 UIU/ML = 2821) [id number] 00:00:00 Test Item Value Reference Range Interpretation Comments TSH, THIRD GENERATION (test code 6.220 UIU/ML = 2821) RACHEL (ANTI-NUCLEAR AB) WITH REFLEX [id number] 00:00:00 Test Item Value Reference Range Interpretation Comments ANTI-NUCLEAR ANTIBODIES (test code = NEGATIVE 3506) RACHEL (ANTI-NUCLEAR AB) WITH REFLEX [id number] 00:00:00 Test Item Value Reference Range Interpretation Comments ANTI-NUCLEAR ANTIBODIES (test code = NEGATIVE 3506) COMPREHENSIVE METABOLIC [id number] 00:00:00 Test Item Value Reference Range Interpretation Comments GLUCOSE (test code = 2217) 79 MG/DL BUN (test code = 2208) 17 MG/DL CREATININE (test code = 2214) 0.78 MG/DL eGFR AMER. (test code 98 ML/MIN/1.73 = 06247) eGFR NON- AMER. (test 85 ML/MIN/1.73 code = 10391) CALC BUN/CREAT (test code = 22 RATIO [...] code = 2219) 18 U/L COMPREHENSIVE METABOLIC [id number] 00:00:00 Test Item Value Reference Range Interpretation Comments GLUCOSE (test code = 2217) 79 MG/DL BUN (test code = 2208) 17 MG/DL CREATININE (test code = 2214) 0.78 MG/DL eGFR AMER. (test code 98 ML/MIN/1.73 = 08761) eGFR NON- AMER. (test 85 ML/MIN/1.73 code = 78788) CALC BUN/CREAT (test code = 22 RATIO [...] code = 2219) 18 U/L CBC W/AUTO [id number] 00:00:00 Test Item Value Reference Range Interpretation [...] code = 1015) 249 K/UL CBC W/AUTO [id number] 00:00:00 Test Item Value Reference Range Interpretation [...] code = 1015) 249 K/UL CBC W/AUTO [id number] 00:00:00 Test Item Value Reference Range Interpretation [...] code = 1015) 249 K/UL RHEUMATOID FACTOR, [id number] 00:00:00 Test Item Value Reference Range Interpretation Comments RHEUMATOID FACTOR, QUANT (test code <10 IU/ML = 3502) RHEUMATOID FACTOR, [id number] 00:00:00 Test Item Value Reference Range Interpretation Comments RHEUMATOID FACTOR, QUANT (test code <10 IU/ML = 3502) RHEUMATOID FACTOR, [id number] 00:00:00 Test Item Value Reference Range Interpretation Comments RHEUMATOID FACTOR, QUANT (test code <10 IU/ML = 3502) VITAMIN D, 25 [id number] 00:00:00 Test Item Value Reference Range Interpretation Comments VITAMIN D, 25 OH (test code = 4958) 24 NG/ML VITAMIN D, 25 [id number] 00:00:00 Test Item Value Reference Range Interpretation Comments VITAMIN D, 25 OH (test code = 4958) 24 NG/ML [id number] 00:00:00 Test Item Value Reference Range Interpretation Comments MAGNESIUM (test code = 2226) 2.0 MG/DL [id number] 00:00:00 Test Item Value Reference Range Interpretation Comments MAGNESIUM (test code = 2226) 2.0 MG/DL [id number] 00:00:00 Test Item Value Reference Range Interpretation Comments MAGNESIUM (test code = 2226) 2.0 MG/DL [id number] 00:00:00 Test Item Value Reference Range Interpretation Comments TSH, THIRD GENERATION (test code 6.220 UIU/ML = 2821) [id number] 00:00:00 Test Item Value Reference Range Interpretation Comments TSH, THIRD GENERATION (test code 6.220 UIU/ML = 2821) [id number] 00:00:00 Test Item Value Reference Range Interpretation Comments TSH, THIRD GENERATION (test code 6.220 UIU/ML = 2821) RACHEL (ANTI-NUCLEAR AB) WITH REFLEX [id number] 00:00:00 Test Item Value Reference Range Interpretation Comments ANTI-NUCLEAR ANTIBODIES (test code = NEGATIVE 3506) RACHEL (ANTI-NUCLEAR AB) WITH REFLEX [id number] 00:00:00 Test Item Value Reference Range Interpretation Comments ANTI-NUCLEAR ANTIBODIES (test code = NEGATIVE 3506) COMPREHENSIVE METABOLIC [id number] 00:00:00 Test Item Value Reference Range Interpretation Comments GLUCOSE (test code = 2217) 79 MG/DL BUN (test code = 2208) 17 MG/DL CREATININE (test code = 2214) 0.78 MG/DL eGFR AMER. (test code 98 ML/MIN/1.73 = 28026) eGFR NON- AMER. (test 85 ML/MIN/1.73 code = 48187) CALC BUN/CREAT (test code = 22 RATIO 2235) SODIUM (test code = 2231) 142 MEQ/L POTASSIUM (test code = 2228) 3.9 MEQ/L CHLORIDE (test code = 2215) 105 MEQ/L CARBON DIOXIDE (test code = 29 MEQ/L 2206) CALCIUM (test code = 2209) 9.1 MG/DL PROTEIN, TOTAL (test code = 6.0 G/DL 2228) ALBUMIN (test code = 2201) 4.1 G/DL CALC GLOBULIN (test code = 1.9 G/DL 2240) CALC A/G RATIO (test code = 2.2 RATIO 4) BILIRUBIN, TOTAL (test code = 0.3 MG/DL 2206) ALKALINE PHOSPHATASE (test 109 U/L code = 2204) AST (test code = 2218) 23 U/L ALT (test code = 2219) 18 U/L COMPREHENSIVE METABOLIC [id number] 00:00:00 Test Item Value Reference Range Interpretation Comments GLUCOSE (test code = 2217) 79 MG/DL BUN (test code = 2208) 17 MG/DL CREATININE (test code = 2214) 0.78 MG/DL eGFR AMER. (test code 98 ML/MIN/1.73 = 67906) eGFR NON- AMER. (test 85 ML/MIN/1.73 code = 73884) CALC BUN/CREAT (test code = 22 RATIO 2235) SODIUM (test code = 2231) 142 MEQ/L POTASSIUM (test code = 2228) 3.9 MEQ/L CHLORIDE (test code = 2215) 105 MEQ/L CARBON DIOXIDE (test code = 29 MEQ/L 2206) CALCIUM (test code = 2209) 9.1 MG/DL PROTEIN, TOTAL (test code = 6.0 G/DL 2229) ALBUMIN (test code = 2201) 4.1 G/DL CALC GLOBULIN (test code = 1.9 G/DL 2240) CALC A/G RATIO (test code = 2.2 RATIO 2234) BILIRUBIN, TOTAL (test code = 0.3 MG/DL 2207) ALKALINE PHOSPHATASE (test 109 U/L code = 2204) AST (test code = 2218) 23 U/L ALT (test code = 2219) 18 U/L CBC W/AUTO [id number] 00:00:00 Test Item Value Reference Range Interpretation [...] code = 1015) 249 K/UL CBC W/AUTO [id number] 00:00:00 Test Item Value Reference Range Interpretation [...] code = 1015) 249 K/UL CBC W/AUTO [id number] 00:00:00 Test Item Value Reference Range Interpretation [...] code = 1015) 249 K/UL RHEUMATOID FACTOR, [id number] 00:00:00 Test Item Value Reference Range Interpretation Comments RHEUMATOID FACTOR, QUANT (test code <10 IU/ML = 3502) RHEUMATOID FACTOR, [id number] 00:00:00 Test Item Value Reference Range Interpretation Comments RHEUMATOID FACTOR, QUANT (test code <10 IU/ML = 3502) RHEUMATOID FACTOR, [id number] 00:00:00 Test Item Value Reference Range Interpretation Comments RHEUMATOID FACTOR, QUANT (test code <10 IU/ML = 3502) VITAMIN D, 25 [id number] 00:00:00 Test Item Value Reference Range Interpretation Comments VITAMIN D, 25 OH (test code = 4958) 24 NG/ML VITAMIN D, 25 [id number] 00:00:00 Test Item Value Reference Range Interpretation Comments VITAMIN D, 25 OH (test code = 4958) 24 NG/ML [id number] 00:00:00 Test Item Value Reference Range Interpretation Comments MAGNESIUM (test code = 2226) 2.0 MG/DL [id number] 00:00:00 Test Item Value Reference Range Interpretation Comments MAGNESIUM (test code = 2226) 2.0 MG/DL [id number] 00:00:00 Test Item Value Reference Range Interpretation Comments MAGNESIUM (test code = 2226) 2.0 MG/DL [id number] 00:00:00 Test Item Value Reference Range Interpretation Comments TSH, THIRD GENERATION (test code 6.220 UIU/ML = 2821) [id number] 00:00:00 Test Item Value Reference Range Interpretation Comments TSH, THIRD GENERATION (test code 6.220 UIU/ML = 2821) [id number] 00:00:00 Test Item Value Reference Range Interpretation Comments TSH, THIRD GENERATION (test code 6.220 UIU/ML = 2821) RACHEL (ANTI-NUCLEAR AB) WITH REFLEX [id number] 00:00:00 Test Item Value Reference Range Interpretation Comments ANTI-NUCLEAR ANTIBODIES (test code = NEGATIVE 3506) RACHEL (ANTI-NUCLEAR AB) WITH REFLEX [id number] 00:00:00 Test Item Value Reference Range Interpretation Comments ANTI-NUCLEAR ANTIBODIES (test code = NEGATIVE 3506) COMPREHENSIVE METABOLIC [id number] 00:00:00 Test Item Value Reference Range Interpretation Comments GLUCOSE (test code = 2217) 79 MG/DL BUN (test code = 2208) 17 MG/DL CREATININE (test code = 2214) 0.78 MG/DL eGFR AMER. (test code 98 ML/MIN/1.73 = 58084) eGFR NON- AMER. (test 85 ML/MIN/1.73 code = 96854) CALC BUN/CREAT (test code = 22 RATIO [...] CALC GLOBULIN (test code = 1.9 G/DL 0) CALC A/G RATIO (test code = 2.2 RATIO 2234) BILIRUBIN, TOTAL (test code = 0.3 MG/DL 2206) ALKALINE PHOSPHATASE (test 109 U/L code = 2204) AST (test code = 2218) 23 U/L ALT (test code = 2219) 18 U/L COMPREHENSIVE METABOLIC [id number] 00:00:00 Test Item Value Reference Range Interpretation Comments GLUCOSE (test code = 2217) 79 MG/DL BUN (test code = 2208) 17 MG/DL CREATININE (test code = 2214) 0.78 MG/DL eGFR AMER. (test code 98 ML/MIN/1.73 = 31791) eGFR NON- AMER. (test 85 ML/MIN/1.73 code = 55076) CALC BUN/CREAT (test code = 22 RATIO [...] CALC GLOBULIN (test code = 1.9 G/DL 224) CALC A/G RATIO (test code = 2.2 RATIO 2234) BILIRUBIN, TOTAL (test code = 0.3 MG/DL 2206) ALKALINE PHOSPHATASE (test 109 U/L code = 2204) AST (test code = 2218) 23 U/L ALT (test code = 2219) 18 U/L CBC W/AUTO [id number] 00:00:00 Test Item Value Reference Range Interpretation [...] code = 1015) 249 K/UL CBC W/AUTO [id number] 00:00:00 Test Item Value Reference Range Interpretation [...] code = 1015) 249 K/UL CBC W/AUTO [id number] 00:00:00 Test Item Value Reference Range Interpretation [...] code = 1015) 249 K/UL RHEUMATOID FACTOR, [id number] 00:00:00 Test Item Value Reference Range Interpretation Comments RHEUMATOID FACTOR, QUANT (test code <10 IU/ML = 3502) RHEUMATOID FACTOR, [id number] 00:00:00 Test Item Value Reference Range Interpretation Comments RHEUMATOID FACTOR, QUANT (test code <10 IU/ML = 3502) RHEUMATOID FACTOR, [id number] 00:00:00 Test Item Value Reference Range Interpretation Comments RHEUMATOID FACTOR, QUANT (test code <10 IU/ML = 3502) VITAMIN D, 25 [id number] 00:00:00 Test Item Value Reference Range Interpretation Comments VITAMIN D, 25 OH (test code = 4958) 24 NG/ML VITAMIN D, 25 [id number] 00:00:00 Test Item Value Reference Range Interpretation Comments VITAMIN D, 25 OH (test code = 4958) 24 NG/ML [id number] 00:00:00 Test Item Value Reference Range Interpretation Comments MAGNESIUM (test code = 2226) 2.0 MG/DL [id number] 00:00:00 Test Item Value Reference Range Interpretation Comments MAGNESIUM (test code = 2226) 2.0 MG/DL [id number] 00:00:00 Test Item Value Reference Range Interpretation Comments MAGNESIUM (test code = 2226) 2.0 MG/DL [id number] 00:00:00 Test Item Value Reference Range Interpretation Comments TSH, THIRD GENERATION (test code 6.220 UIU/ML = 2821) [id number] 00:00:00 Test Item Value Reference Range Interpretation Comments TSH, THIRD GENERATION (test code 6.220 UIU/ML = 2821) [id number] 00:00:00 Test Item Value Reference Range Interpretation Comments TSH, THIRD GENERATION (test code 6.220 UIU/ML = 2821) RACHEL (ANTI-NUCLEAR AB) WITH REFLEX [id number] 00:00:00 Test Item Value Reference Range Interpretation Comments ANTI-NUCLEAR ANTIBODIES (test code = NEGATIVE 3506) RACHEL (ANTI-NUCLEAR AB) WITH REFLEX [id number] 00:00:00 Test Item Value Reference Range Interpretation Comments ANTI-NUCLEAR ANTIBODIES (test code = NEGATIVE 3506) COMPREHENSIVE METABOLIC [id number] 00:00:00 Test Item Value Reference Range Interpretation Comments GLUCOSE (test code = 2217) 79 MG/DL BUN (test code = 2208) 17 MG/DL CREATININE (test code = 2214) 0.78 MG/DL eGFR AMER. (test code 98 ML/MIN/1.73 = 91128) eGFR NON- AMER. (test 85 ML/MIN/1.73 code = 71033) CALC BUN/CREAT (test code = 22 RATIO [...] code = 2219) 18 U/L COMPREHENSIVE METABOLIC [id number] 00:00:00 Test Item Value Reference Range Interpretation Comments GLUCOSE (test code = 2217) 79 MG/DL BUN (test code = 2208) 17 MG/DL CREATININE (test code = 2214) 0.78 MG/DL eGFR AMER. (test code 98 ML/MIN/1.73 = 29665) eGFR NON- AMER. (test 85 ML/MIN/1.73 code = 93032) CALC BUN/CREAT (test code = 22 RATIO [...] code = 2219) 18 U/L CBC W/AUTO [id number] 00:00:00 Test Item Value Reference Range Interpretation [...] code = 1015) 249 K/UL CBC W/AUTO [id number] 00:00:00 Test Item Value Reference Range Interpretation [...] code = 1015) 249 K/UL CBC W/AUTO [id number] 00:00:00 Test Item Value Reference Range Interpretation [...] code = 1015) 249 K/UL RHEUMATOID FACTOR, [id number] 00:00:00 Test Item Value Reference Range Interpretation Comments RHEUMATOID FACTOR, QUANT (test code <10 IU/ML = 3502) RHEUMATOID FACTOR, [id number] 00:00:00 Test Item Value Reference Range Interpretation Comments RHEUMATOID FACTOR, QUANT (test code <10 IU/ML = 3502) RHEUMATOID FACTOR, [id number] 00:00:00 Test Item Value Reference Range Interpretation Comments RHEUMATOID FACTOR, QUANT (test code <10 IU/ML = 3502) VITAMIN D, 25 [id number] 00:00:00 Test Item Value Reference Range Interpretation Comments VITAMIN D, 25 OH (test code = 4958) 24 NG/ML VITAMIN D, 25 [id number] 00:00:00 Test Item Value Reference Range Interpretation Comments VITAMIN D, 25 OH (test code = 4958) 24 NG/ML [id number] 00:00:00 Test Item Value Reference Range Interpretation Comments MAGNESIUM (test code = 2226) 2.0 MG/DL [id number] 00:00:00 Test Item Value Reference Range Interpretation Comments MAGNESIUM (test code = 2226) 2.0 MG/DL [id number] 00:00:00 Test Item Value Reference Range Interpretation Comments MAGNESIUM (test code = 2226) 2.0 MG/DL [id number] 00:00:00 Test Item Value Reference Range Interpretation Comments TSH, THIRD GENERATION (test code 6.220 UIU/ML = 2821) [id number] 00:00:00 Test Item Value Reference Range Interpretation Comments TSH, THIRD GENERATION (test code 6.220 UIU/ML = 2821) [id number] 00:00:00 Test Item Value Reference Range Interpretation Comments TSH, THIRD GENERATION (test code 6.220 UIU/ML = 2821) RACHEL (ANTI-NUCLEAR AB) WITH REFLEX [id number] 00:00:00 Test Item Value Reference Range Interpretation Comments ANTI-NUCLEAR ANTIBODIES (test code = NEGATIVE 3506) RACHEL (ANTI-NUCLEAR AB) WITH REFLEX [id number] 00:00:00 Test Item Value Reference Range Interpretation Comments ANTI-NUCLEAR ANTIBODIES (test code = NEGATIVE 3506) [id number] 00:00:00 Test Item Value Reference Range Interpretation Comments LAMOTRIGINE (test code = 51781) 6.2 mcg/mL [id number] 00:00:00 Test Item Value Reference Range Interpretation Comments LAMOTRIGINE (test code = 55474) 6.2 mcg/mL [id number] 00:00:00 Test Item Value Reference Range Interpretation Comments LEVETIRACETAM (test code = 52010) 19.7 mcg/mL [id number] 00:00:00 Test Item Value Reference Range Interpretation Comments LEVETIRACETAM (test code = 56523) 19.7 mcg/mL [id number] 00:00:00 Test Item Value Reference Range Interpretation Comments LAMOTRIGINE (test code = 06011) 6.2 mcg/mL [id number] 00:00:00 Test Item Value Reference Range Interpretation Comments LAMOTRIGINE (test code = 91928) 6.2 mcg/mL [id number] 00:00:00 Test Item Value Reference Range Interpretation Comments LEVETIRACETAM (test code = 20587) 19.7 mcg/mL [id number] 00:00:00 Test Item Value Reference Range Interpretation Comments LEVETIRACETAM (test code = 02913) 19.7 mcg/mL [id number] 00:00:00 Test Item Value Reference Range Interpretation Comments LAMOTRIGINE (test code = 58701) 6.2 mcg/mL [id number] 00:00:00 Test Item Value Reference Range Interpretation Comments LAMOTRIGINE (test code = 03234) 6.2 mcg/mL [id number] 00:00:00 Test Item Value Reference Range Interpretation Comments LEVETIRACETAM (test code = 15016) 19.7 mcg/mL [id number] 00:00:00 Test Item Value Reference Range Interpretation Comments LEVETIRACETAM (test code = 64751) 19.7 mcg/mL [id number] 00:00:00 Test Item Value Reference Range Interpretation Comments LAMOTRIGINE (test code = 71771) 6.2 mcg/mL [id number] 00:00:00 Test Item Value Reference Range Interpretation Comments LAMOTRIGINE (test code = 10501) 6.2 mcg/mL [id number] 00:00:00 Test Item Value Reference Range Interpretation Comments LEVETIRACETAM (test code = 38178) 19.7 mcg/mL [id number] 00:00:00 Test Item Value Reference Range Interpretation Comments LEVETIRACETAM (test code = 78698) 19.7 mcg/mL [id number] 00:00:00 Test Item Value Reference Range Interpretation Comments LAMOTRIGINE (test code = 00826) 6.2 mcg/mL [id number] 00:00:00 Test Item Value Reference Range Interpretation Comments LAMOTRIGINE (test code = 08651) 6.2 mcg/mL [id number] 00:00:00 Test Item Value Reference Range Interpretation Comments LEVETIRACETAM (test code = 78331) 19.7 mcg/mL [id number] 00:00:00 Test Item Value Reference Range Interpretation Comments LEVETIRACETAM (test code = 72212) 19.7 mcg/mL [id number] 00:00:00 Test Item Value Reference Range Interpretation Comments LAMOTRIGINE (test code = 57957) 6.2 mcg/mL [id number] 00:00:00 Test Item Value Reference Range Interpretation Comments LAMOTRIGINE (test code = 07073) 6.2 mcg/mL [id number] 00:00:00 Test Item Value Reference Range Interpretation Comments LEVETIRACETAM (test code = 96605) 19.7 mcg/mL [id number] 00:00:00 Test Item Value Reference Range Interpretation Comments LEVETIRACETAM (test code = 19901) 19.7 mcg/mL [id number] 00:00:00 Test Item Value Reference Range Interpretation Comments TSH, THIRD GENERATION (test code 0.300 UIU/ML = 2821) [id number] 00:00:00 Test Item Value Reference Range Interpretation Comments TSH, THIRD GENERATION (test code 0.300 UIU/ML = 2821) CBC W/AUTO [id number] 00:00:00 Test Item Value Reference Range Interpretation [...] code = 1015) 214 K/UL CBC W/AUTO [id number] 00:00:00 Test Item Value Reference Range Interpretation [...] code = 1015) 214 K/UL CBC W/AUTO [id number] 00:00:00 Test Item Value Reference Range Interpretation [...] code = 1015) 214 K/UL COMPREHENSIVE METABOLIC [id number] 00:00:00 Test Item Value Reference Range Interpretation Comments GLUCOSE (test code = 2217) 87 MG/DL BUN (test code = 2208) 15 MG/DL CREATININE (test code = 2214) 0.89 MG/DL eGFR AMER. (test code 84 ML/MIN/1.73 = 92243) eGFR NON- AMER. (test 72 ML/MIN/1.73 code = 75041) CALC BUN/CREAT (test code = 17 RATIO [...] code = 2219) 13 U/L COMPREHENSIVE METABOLIC [id number] 00:00:00 Test Item Value Reference Range Interpretation Comments GLUCOSE (test code = 2217) 87 MG/DL BUN (test code = 2208) 15 MG/DL CREATININE (test code = 2214) 0.89 MG/DL eGFR AMER. (test code 84 ML/MIN/1.73 = 29967) eGFR NON- AMER. (test 72 ML/MIN/1.73 code = 16001) CALC BUN/CREAT (test code = 17 RATIO [...] ALT (test code = 2219) 13 U/L [id number] 00:00:00 Test Item Value Reference Range Interpretation Comments TSH, THIRD GENERATION (test code 0.300 UIU/ML = 2821) [id number] 00:00:00 Test Item Value Reference Range Interpretation Comments TSH, THIRD GENERATION (test code 0.300 UIU/ML = 2821) [id number] 00:00:00 Test Item Value Reference Range Interpretation Comments TSH, THIRD GENERATION (test code 0.300 UIU/ML = 2821) CBC W/AUTO [id number] 00:00:00 Test Item Value Reference Range Interpretation [...] code = 1015) 214 K/UL CBC W/AUTO [id number] 00:00:00 Test Item Value Reference Range Interpretation [...] code = 1015) 214 K/UL CBC W/AUTO [id number] 00:00:00 Test Item Value Reference Range Interpretation [...] code = 1015) 214 K/UL COMPREHENSIVE METABOLIC [id number] 00:00:00 Test Item Value Reference Range Interpretation Comments GLUCOSE (test code = 2217) 87 MG/DL BUN (test code = 2208) 15 MG/DL CREATININE (test code = 2214) 0.89 MG/DL eGFR AMER. (test code 84 ML/MIN/1.73 = 68395) eGFR NON- AMER. (test 72 ML/MIN/1.73 code = 40562) CALC BUN/CREAT (test code = 17 RATIO [...] code = 2219) 13 U/L COMPREHENSIVE METABOLIC [id number] 00:00:00 Test Item Value Reference Range Interpretation Comments GLUCOSE (test code = 2217) 87 MG/DL BUN (test code = 2208) 15 MG/DL CREATININE (test code = 2214) 0.89 MG/DL eGFR AMER. (test code 84 ML/MIN/1.73 = 75047) eGFR NON- AMER. (test 72 ML/MIN/1.73 code = 81936) CALC BUN/CREAT (test code = 17 RATIO [...] ALT (test code = 2219) 13 U/L [id number] 00:00:00 Test Item Value Reference Range Interpretation Comments TSH, THIRD GENERATION (test code 0.300 UIU/ML = 2821) [id number] 00:00:00 Test Item Value Reference Range Interpretation Comments TSH, THIRD GENERATION (test code 0.300 UIU/ML = 2821) [id number] 00:00:00 Test Item Value Reference Range Interpretation Comments TSH, THIRD GENERATION (test code 0.300 UIU/ML = 2821) CBC W/AUTO [id number] 00:00:00 Test Item Value Reference Range Interpretation [...] code = 1015) 214 K/UL CBC W/AUTO [id number] 00:00:00 Test Item Value Reference Range Interpretation [...] code = 1015) 214 K/UL CBC W/AUTO [id number] 00:00:00 Test Item Value Reference Range Interpretation [...] code = 1015) 214 K/UL COMPREHENSIVE METABOLIC [id number] 00:00:00 Test Item Value Reference Range Interpretation Comments GLUCOSE (test code = 2217) 87 MG/DL BUN (test code = 2208) 15 MG/DL CREATININE (test code = 2214) 0.89 MG/DL eGFR AMER. (test code 84 ML/MIN/1.73 = 35274) eGFR NON- AMER. (test 72 ML/MIN/1.73 code = 51811) CALC BUN/CREAT (test code = 17 RATIO [...] code = 2219) 13 U/L COMPREHENSIVE METABOLIC [id number] 00:00:00 Test Item Value Reference Range Interpretation Comments GLUCOSE (test code = 2217) 87 MG/DL BUN (test code = 2208) 15 MG/DL CREATININE (test code = 2214) 0.89 MG/DL eGFR AMER. (test code 84 ML/MIN/1.73 = 98609) eGFR NON- AMER. (test 72 ML/MIN/1.73 code = 92287) CALC BUN/CREAT (test code = 17 RATIO [...] ALT (test code = 2219) 13 U/L [id number] 00:00:00 Test Item Value Reference Range Interpretation Comments TSH, THIRD GENERATION (test code 0.300 UIU/ML = 2821) [id number] 00:00:00 Test Item Value Reference Range Interpretation Comments TSH, THIRD GENERATION (test code 0.300 UIU/ML = 2821) [id number] 00:00:00 Test Item Value Reference Range Interpretation Comments TSH, THIRD GENERATION (test code 0.300 UIU/ML = 2821) CBC W/AUTO [id number] 00:00:00 Test Item Value Reference Range Interpretation [...] code = 1015) 214 K/UL CBC W/AUTO [id number] 00:00:00 Test Item Value Reference Range Interpretation [...] code = 1015) 214 K/UL CBC W/AUTO [id number] 00:00:00 Test Item Value Reference Range Interpretation [...] code = 1015) 214 K/UL COMPREHENSIVE METABOLIC [id number] 00:00:00 Test Item Value Reference Range Interpretation Comments GLUCOSE (test code = 2217) 87 MG/DL BUN (test code = 2208) 15 MG/DL CREATININE (test code = 2214) 0.89 MG/DL eGFR AMER. (test code 84 ML/MIN/1.73 = 74909) eGFR NON- AMER. (test 72 ML/MIN/1.73 code = 38510) CALC BUN/CREAT (test code = 17 RATIO [...] code = 2219) 13 U/L COMPREHENSIVE METABOLIC [id number] 00:00:00 Test Item Value Reference Range Interpretation Comments GLUCOSE (test code = 2217) 87 MG/DL BUN (test code = 2208) 15 MG/DL CREATININE (test code = 2214) 0.89 MG/DL eGFR AMER. (test code 84 ML/MIN/1.73 = 60152) eGFR NON- AMER. (test 72 ML/MIN/1.73 code = 24276) CALC BUN/CREAT (test code = 17 RATIO [...] A/G RATIO (test code = 1.9 RATIO 2233) BILIRUBIN, TOTAL (test code = 0.5 MG/DL 2206) ALKALINE PHOSPHATASE (test 101 U/L code = 220) AST (test code = 2218) 21 U/L ALT (test code = 2219) 13 U/L [id number] 00:00:00 Test Item Value Reference Range Interpretation Comments TSH, THIRD GENERATION (test code 0.300 UIU/ML = 2821) [id number] 00:00:00 Test Item Value Reference Range Interpretation Comments TSH, THIRD GENERATION (test code 0.300 UIU/ML = 2821) [id number] 00:00:00 Test Item Value Reference Range Interpretation Comments TSH, THIRD GENERATION (test code 0.300 UIU/ML = 2821) CBC W/AUTO [id number] 00:00:00 Test Item Value Reference Range Interpretation [...] code = 1015) 214 K/UL CBC W/AUTO [id number] 00:00:00 Test Item Value Reference Range Interpretation [...] code = 1015) 214 K/UL CBC W/AUTO [id number] 00:00:00 Test Item Value Reference Range Interpretation [...] code = 1015) 214 K/UL COMPREHENSIVE METABOLIC [id number] 00:00:00 Test Item Value Reference Range Interpretation Comments GLUCOSE (test code = 2217) 87 MG/DL BUN (test code = 2208) 15 MG/DL CREATININE (test code = 2214) 0.89 MG/DL eGFR AMER. (test code 84 ML/MIN/1.73 = 32364) eGFR NON- AMER. (test 72 ML/MIN/1.73 code = 58948) CALC BUN/CREAT (test code = 17 RATIO [...] code = 2219) 13 U/L COMPREHENSIVE METABOLIC [id number] 00:00:00 Test Item Value Reference Range Interpretation Comments GLUCOSE (test code = 2217) 87 MG/DL BUN (test code = 2208) 15 MG/DL CREATININE (test code = 2214) 0.89 MG/DL eGFR AMER. (test code 84 ML/MIN/1.73 = 80114) eGFR NON- AMER. (test 72 ML/MIN/1.73 code = 78021) CALC BUN/CREAT (test code = 17 RATIO [...] = 0.5 MG/DL 2207) ALKALINE PHOSPHATASE (test 101 U/L code = 2204) AST (test code = 2218) 21 U/L ALT (test code = 2219) 13 U/L [id number] 00:00:00 Test Item Value Reference Range Interpretation Comments TSH, THIRD GENERATION (test code 0.300 UIU/ML = 2821) [id number] 00:00:00 Test Item Value Reference Range Interpretation Comments TSH, THIRD GENERATION (test code 0.300 UIU/ML = 2821) [id number] 00:00:00 Test Item Value Reference Range Interpretation Comments TSH, THIRD GENERATION (test code 0.300 UIU/ML = 2821) CBC W/AUTO [id number] 00:00:00 Test Item Value Reference Range Interpretation [...] code = 1015) 214 K/UL CBC W/AUTO [id number] 00:00:00 Test Item Value Reference Range Interpretation [...] code = 1015) 214 K/UL CBC W/AUTO [id number] 00:00:00 Test Item Value Reference Range Interpretation [...] code = 1015) 214 K/UL COMPREHENSIVE METABOLIC [id number] 00:00:00 Test Item Value Reference Range Interpretation Comments GLUCOSE (test code = 2217) 87 MG/DL BUN (test code = 2208) 15 MG/DL CREATININE (test code = 2214) 0.89 MG/DL eGFR AMER. (test code 84 ML/MIN/1.73 = 08002) eGFR NON- AMER. (test 72 ML/MIN/1.73 code = 69507) CALC BUN/CREAT (test code = 17 RATIO [...] = 0.5 MG/DL 2207) ALKALINE PHOSPHATASE (test 101 U/L code = 2204) AST (test code = 2218) 21 U/L ALT (test code = 2219) 13 U/L COMPREHENSIVE METABOLIC [id number] 00:00:00 Test Item Value Reference Range Interpretation Comments GLUCOSE (test code = 2217) 87 MG/DL BUN (test code = 2208) 15 MG/DL CREATININE (test code = 2214) 0.89 MG/DL eGFR AMER. (test code 84 ML/MIN/1.73 = 44010) eGFR NON- AMER. (test 72 ML/MIN/1.73 code = 35505) CALC BUN/CREAT (test code = 17 RATIO [...] CALC GLOBULIN (test code = 2.4 G/DL 0) CALC A/G RATIO (test code = 1.9 RATIO 2233) BILIRUBIN, TOTAL (test code = 0.5 MG/DL 2206) ALKALINE PHOSPHATASE (test 101 U/L code = 2204) AST (test code = 2218) 21 U/L ALT (test code = 2219) 13 U/L [id number] 00:00:00 Test Item Value Reference Range Interpretation Comments TSH, THIRD GENERATION (test code 0.300 UIU/ML = 2821) [id number] 00:00:00 Test Item Value Reference Range Interpretation Comments LEVETIRACETAM (test code = 45724) 36.0 mcg/mL [id number] 00:00:00 Test Item Value Reference Range Interpretation Comments LEVETIRACETAM (test code = 64665) 36.0 mcg/mL [id number] 00:00:00 Test Item Value Reference Range Interpretation Comments LEVETIRACETAM (test code = 05318) 36.0 mcg/mL [id number] 00:00:00 Test Item Value Reference Range Interpretation Comments LEVETIRACETAM (test code = 55727) 36.0 mcg/mL [id number] 00:00:00 Test Item Value Reference Range Interpretation Comments LEVETIRACETAM (test code = 59697) 36.0 mcg/mL [id number] 00:00:00 Test Item Value Reference Range Interpretation Comments LEVETIRACETAM (test code = 80327) 36.0 mcg/mL [id number] 00:00:00 Test Item Value Reference Range Interpretation Comments LEVETIRACETAM (test code = 56536) 36.0 mcg/mL [id number] 00:00:00 Test Item Value Reference Range Interpretation Comments LEVETIRACETAM (test code = 46121) 36.0 mcg/mL [id number] 00:00:00 Test Item Value Reference Range Interpretation Comments LEVETIRACETAM (test code = 05164) 36.0 mcg/mL [id number] 00:00:00 Test Item Value Reference Range Interpretation Comments LEVETIRACETAM (test code = 72951) 36.0 mcg/mL [id number] 00:00:00 Test Item Value Reference Range Interpretation Comments LEVETIRACETAM (test code = 14900) 36.0 mcg/mL [id number] 00:00:00 Test Item Value Reference Range Interpretation Comments LEVETIRACETAM (test code = 15960) 36.0 mcg/mL COMPREHENSIVE METABOLIC [id number] 00:00:00 Test Item Value Reference Range Interpretation Comments GLUCOSE (test code = 2217) 75 MG/DL BUN (test code = 2208) 13 MG/DL CREATININE (test code = 2214) 0.81 MG/DL eGFR AMER. (test code 95 ML/MIN/1.73 = 39211) eGFR NON- AMER. (test 82 ML/MIN/1.73 code = 18632) CALC BUN/CREAT (test code = 16 RATIO [...] code = 2219) 16 U/L COMPREHENSIVE METABOLIC [id number] 00:00:00 Test Item Value Reference Range Interpretation Comments GLUCOSE (test code = 2217) 75 MG/DL BUN (test code = 2208) 13 MG/DL CREATININE (test code = 2214) 0.81 MG/DL eGFR AMER. (test code 95 ML/MIN/1.73 = 86988) eGFR NON- AMER. (test 82 ML/MIN/1.73 code = 37205) CALC BUN/CREAT (test code = 16 RATIO [...] code = 2219) 16 U/L COMPREHENSIVE METABOLIC [id number] 00:00:00 Test Item Value Reference Range Interpretation Comments GLUCOSE (test code = 2217) 75 MG/DL BUN (test code = 2208) 13 MG/DL CREATININE (test code = 2214) 0.81 MG/DL eGFR AMER. (test code 95 ML/MIN/1.73 = 27790) eGFR NON- AMER. (test 82 ML/MIN/1.73 code = 68285) CALC BUN/CREAT (test code = 16 RATIO [...] code = 2219) 16 U/L COMPREHENSIVE METABOLIC [id number] 00:00:00 Test Item Value Reference Range Interpretation Comments GLUCOSE (test code = 2217) 75 MG/DL BUN (test code = 2208) 13 MG/DL CREATININE (test code = 2214) 0.81 MG/DL eGFR AMER. (test code 95 ML/MIN/1.73 = 47873) eGFR NON- AMER. (test 82 ML/MIN/1.73 code = 41161) CALC BUN/CREAT (test code = 16 RATIO [...] code = 2219) 16 U/L COMPREHENSIVE METABOLIC [id number] 00:00:00 Test Item Value Reference Range Interpretation Comments GLUCOSE (test code = 2217) 75 MG/DL BUN (test code = 2208) 13 MG/DL CREATININE (test code = 2214) 0.81 MG/DL eGFR AMER. (test code 95 ML/MIN/1.73 = 83265) eGFR NON- AMER. (test 82 ML/MIN/1.73 code = 08300) CALC BUN/CREAT (test code = 16 RATIO [...] code = 2219) 16 U/L COMPREHENSIVE METABOLIC [id number] 00:00:00 Test Item Value Reference Range Interpretation Comments GLUCOSE (test code = 2217) 75 MG/DL BUN (test code = 2208) 13 MG/DL CREATININE (test code = 2214) 0.81 MG/DL eGFR AMER. (test code 95 ML/MIN/1.73 = 92755) eGFR NON- AMER. (test 82 ML/MIN/1.73 code = 11633) CALC BUN/CREAT (test code = 16 RATIO [...] code = 2219) 16 U/L COMPREHENSIVE METABOLIC [id number] 00:00:00 Test Item Value Reference Range Interpretation Comments GLUCOSE (test code = 2217) 75 MG/DL BUN (test code = 2208) 13 MG/DL CREATININE (test code = 2214) 0.81 MG/DL eGFR AMER. (test code 95 ML/MIN/1.73 = 44065) eGFR NON- AMER. (test 82 ML/MIN/1.73 code = 66889) CALC BUN/CREAT (test code = 16 RATIO [...] code = 2219) 16 U/L COMPREHENSIVE METABOLIC [id number] 00:00:00 Test Item Value Reference Range Interpretation Comments GLUCOSE (test code = 2217) 75 MG/DL BUN (test code = 2208) 13 MG/DL CREATININE (test code = 2214) 0.81 MG/DL eGFR AMER. (test code 95 ML/MIN/1.73 = 54161) eGFR NON- AMER. (test 82 ML/MIN/1.73 code = 44897) CALC BUN/CREAT (test code = 16 RATIO [...] code = 2219) 16 U/L COMPREHENSIVE METABOLIC [id number] 00:00:00 Test Item Value Reference Range Interpretation Comments GLUCOSE (test code = 2217) 75 MG/DL BUN (test code = 2208) 13 MG/DL CREATININE (test code = 2214) 0.81 MG/DL eGFR AMER. (test code 95 ML/MIN/1.73 = 33257) eGFR NON- AMER. (test 82 ML/MIN/1.73 code = 80244) CALC BUN/CREAT (test code = 16 RATIO [...] code = 2219) 16 U/L COMPREHENSIVE METABOLIC [id number] 00:00:00 Test Item Value Reference Range Interpretation Comments GLUCOSE (test code = 2217) 75 MG/DL BUN (test code = 2208) 13 MG/DL CREATININE (test code = 2214) 0.81 MG/DL eGFR AMER. (test code 95 ML/MIN/1.73 = 46576) eGFR NON- AMER. (test 82 ML/MIN/1.73 code = 12267) CALC BUN/CREAT (test code = 16 RATIO [...] code = 2219) 16 U/L COMPREHENSIVE METABOLIC [id number] 00:00:00 Test Item Value Reference Range Interpretation Comments GLUCOSE (test code = 2217) 75 MG/DL BUN (test code = 2208) 13 MG/DL CREATININE (test code = 2214) 0.81 MG/DL eGFR AMER. (test code 95 ML/MIN/1.73 = 73539) eGFR NON- AMER. (test 82 ML/MIN/1.73 code = 58040) CALC BUN/CREAT (test code = 16 RATIO [...] code = 2219) 16 U/L COMPREHENSIVE METABOLIC [id number] 00:00:00 Test Item Value Reference Range Interpretation Comments GLUCOSE (test code = 2217) 75 MG/DL BUN (test code = 2208) 13 MG/DL CREATININE (test code = 2214) 0.81 MG/DL eGFR AMER. (test code 95 ML/MIN/1.73 = 83700) eGFR NON- AMER. (test 82 ML/MIN/1.73 code = 85959) CALC BUN/CREAT (test code = 16 RATIO [...] ALT (test code = 2219) 16 U/L LIPID PANEL [ADDED]2018-09-26 00:00:00 Test Item [...] RATIO LDL/HDL (test code = 1.57 RATIO 2237) HEPATIC FUNCTION PANEL [ADDED]2018-09-26 00:00:00 Test Item [...] Interpretation Comments HEMOGLOBIN A1c (test code = 48389) 4.9 % HEMOGLOBIN A1c [ADDED]2018-09-26 00:00:00 Test Item Value Reference Range Interpretation Comments HEMOGLOBIN A1c (test code = 06983) 4.9 % HEMOGLOBIN A1c [ADDED]2018-09-26 00:00:00 Test Item Value Reference Range Interpretation Comments HEMOGLOBIN A1c (test code = 16940) 4.9 % TSH, THIRD GENERATION [ADDED]2018-09-26 00:00:00 [...] eGFR AMER. (test code 75 ML/MIN/1.73 = 16443) eGFR NON- AMER. (test 65 ML/MIN/1.73 code = 91562) CALC BUN/CREAT (test code = 11 RATIO [...] eGFR AMER. (test code 75 ML/MIN/1.73 = 13307) eGFR NON- AMER. (test 65 ML/MIN/1.73 code = 08880) CALC BUN/CREAT (test code = 11 RATIO [...] ALKALINE PHOSPHATASE (test 107 U/L code = 220) AST (test code [...] Interpretation Comments HEMOGLOBIN A1c (test code = 94025) 4.9 % HEMOGLOBIN A1c [ADDED]2018-09-26 00:00:00 Test Item Value Reference Range Interpretation Comments HEMOGLOBIN A1c (test code = 61324) 4.9 % HEMOGLOBIN A1c [ADDED]2018-09-26 00:00:00 Test Item Value Reference Range Interpretation Comments HEMOGLOBIN A1c (test code = 46591) 4.9 % TSH, THIRD GENERATION [ADDED]2018-09-26 00:00:00 [...] eGFR AMER. (test code 75 ML/MIN/1.73 = 58883) eGFR NON- AMER. (test 65 ML/MIN/1.73 code = 15649) CALC BUN/CREAT (test code = 11 RATIO [...] CALC GLOBULIN (test code = 2.0 G/DL 224) CALC A/G RATIO (test code = 2.3 [...] eGFR AMER. (test code 75 ML/MIN/1.73 = 38638) eGFR NON- AMER. (test 65 ML/MIN/1.73 code = 58809) CALC BUN/CREAT (test code = 11 RATIO [...] Interpretation Comments HEMOGLOBIN A1c (test code = 34539) 4.9 % HEMOGLOBIN A1c [ADDED]2018-09-26 00:00:00 Test Item Value Reference Range Interpretation Comments HEMOGLOBIN A1c (test code = 16251) 4.9 % HEMOGLOBIN A1c [ADDED]2018-09-26 00:00:00 Test Item Value Reference Range Interpretation Comments HEMOGLOBIN A1c (test code = 58034) 4.9 % TSH, THIRD GENERATION [ADDED]2018-09-26 00:00:00 [...] eGFR AMER. (test code 75 ML/MIN/1.73 = 94086) eGFR NON- AMER. (test 65 ML/MIN/1.73 code = 19323) CALC BUN/CREAT (test code = 11 RATIO [...] eGFR AMER. (test code 75 ML/MIN/1.73 = 47577) eGFR NON- AMER. (test 65 ML/MIN/1.73 code = 70748) CALC BUN/CREAT (test code = 11 RATIO [...] Interpretation Comments HEMOGLOBIN A1c (test code = 61193) 4.9 % HEMOGLOBIN A1c [ADDED]2018-09-26 00:00:00 Test Item Value Reference Range Interpretation Comments HEMOGLOBIN A1c (test code = 15635) 4.9 % HEMOGLOBIN A1c [ADDED]2018-09-26 00:00:00 Test Item Value Reference Range Interpretation Comments HEMOGLOBIN A1c (test code = 08879) 4.9 % TSH, THIRD GENERATION [ADDED]2018-09-26 00:00:00 [...] eGFR AMER. (test code 75 ML/MIN/1.73 = 73308) eGFR NON- AMER. (test 65 ML/MIN/1.73 code = 27214) CALC BUN/CREAT (test code = 11 RATIO [...] eGFR AMER. (test code 75 ML/MIN/1.73 = 08638) eGFR NON- AMER. (test 65 ML/MIN/1.73 code = 08828) CALC BUN/CREAT (test code = 11 RATIO [...] Interpretation Comments HEMOGLOBIN A1c (test code = 44113) 4.9 % HEMOGLOBIN A1c [ADDED]2018-09-26 00:00:00 Test Item Value Reference Range Interpretation Comments HEMOGLOBIN A1c (test code = 05836) 4.9 % HEMOGLOBIN A1c [ADDED]2018-09-26 00:00:00 Test Item Value Reference Range Interpretation Comments HEMOGLOBIN A1c (test code = 56705) 4.9 % TSH, THIRD GENERATION [ADDED]2018-09-26 00:00:00 [...] eGFR AMER. (test code 75 ML/MIN/1.73 = 27810) eGFR NON- AMER. (test 65 ML/MIN/1.73 code = 12233) CALC BUN/CREAT (test code = 11 RATIO [...] eGFR AMER. (test code 75 ML/MIN/1.73 = 28856) eGFR NON- AMER. (test 65 ML/MIN/1.73 code = 71735) CALC BUN/CREAT (test code = 11 RATIO [...] ALKALINE PHOSPHATASE (test code = 107 U/L 4) AST (test code = 2218) 23 U/L [...] Interpretation Comments HEMOGLOBIN A1c (test code = 11049) 4.9 % HEMOGLOBIN A1c [ADDED]2018-09-26 00:00:00 Test Item Value Reference Range Interpretation Comments HEMOGLOBIN A1c (test code = 89671) 4.9 % HEMOGLOBIN A1c [ADDED]2018-09-26 00:00:00 Test Item Value Reference Range Interpretation Comments HEMOGLOBIN A1c (test code = 75317) 4.9 % TSH, THIRD GENERATION [ADDED]2018-09-26 00:00:00 [...] eGFR AMER. (test code 75 ML/MIN/1.73 = 97146) eGFR NON- AMER. (test 65 ML/MIN/1.73 code = 65376) CALC BUN/CREAT (test code = 11 RATIO [...] eGFR AMER. (test code 75 ML/MIN/1.73 = 47645) eGFR NON- AMER. (test 65 ML/MIN/1.73 code = 05763) CALC BUN/CREAT (test code = 11 RATIO [...] code = 2219) 14 U/L CBC W/AUTO [id number] 00:00:00 Test Item Value Reference Range Interpretation [...] COUNT (test code = 1015) 183 K/UL [id number] 00:00:00 Test Item Value Reference Range Interpretation Comments TSH, THIRD GENERATION (test code 2.510 UIU/ML = 2821) [id number] 00:00:00 Test Item Value Reference Range Interpretation Comments TSH, THIRD GENERATION (test code 2.510 UIU/ML = 2821) [id number] 00:00:00 Test Item Value Reference Range Interpretation Comments TSH, THIRD GENERATION (test code 2.510 UIU/ML = 2821) COMPREHENSIVE METABOLIC [id number] 00:00:00 Test Item Value Reference Range Interpretation Comments GLUCOSE (test code = 2217) 81 MG/DL BUN (test code = 2208) 18 MG/DL CREATININE (test code = 2214) 0.86 MG/DL eGFR AMER. (test code 88 ML/MIN/1.73 = 99497) eGFR NON- AMER. (test 76 ML/MIN/1.73 code = 62133) CALC BUN/CREAT (test code = 21 RATIO [...] code = 2219) 14 U/L COMPREHENSIVE METABOLIC [id number] 00:00:00 Test Item Value Reference Range Interpretation Comments GLUCOSE (test code = 2217) 81 MG/DL BUN (test code = 2208) 18 MG/DL CREATININE (test code = 2214) 0.86 MG/DL eGFR AMER. (test code 88 ML/MIN/1.73 = 24838) eGFR NON- AMER. (test 76 ML/MIN/1.73 code = 45192) CALC BUN/CREAT (test code = 21 RATIO 2235) SODIUM (test code = 2231) 146 MEQ/L POTASSIUM (test code = 2228) 3.8 MEQ/L CHLORIDE (test code = 2215) 105 MEQ/L CARBON DIOXIDE (test code = 30 MEQ/L 220) CALCIUM (test code = 2209) 9.0 MG/DL [...] code = 2219) 14 U/L CBC W/AUTO [id number] 00:00:00 Test Item Value Reference Range Interpretation [...] code = 1015) 183 K/UL CBC W/AUTO [id number] 00:00:00 Test Item Value Reference Range Interpretation [...] code = 1015) 183 K/UL CBC W/AUTO [id number] 00:00:00 Test Item Value Reference Range Interpretation [...] COUNT (test code = 1015) 183 K/UL [id number] 00:00:00 Test Item Value Reference Range Interpretation Comments TSH, THIRD GENERATION (test code 2.510 UIU/ML = 2821) [id number] 00:00:00 Test Item Value Reference Range Interpretation Comments TSH, THIRD GENERATION (test code 2.510 UIU/ML = 2821) [id number] 00:00:00 Test Item Value Reference Range Interpretation Comments TSH, THIRD GENERATION (test code 2.510 UIU/ML = 2821) COMPREHENSIVE METABOLIC [id number] 00:00:00 Test Item Value Reference Range Interpretation Comments GLUCOSE (test code = 2217) 81 MG/DL BUN (test code = 2208) 18 MG/DL CREATININE (test code = 2214) 0.86 MG/DL eGFR AMER. (test code 88 ML/MIN/1.73 = 01721) eGFR NON- AMER. (test 76 ML/MIN/1.73 code = 28790) CALC BUN/CREAT (test code = 21 RATIO [...] code = 2219) 14 U/L COMPREHENSIVE METABOLIC [id number] 00:00:00 Test Item Value Reference Range Interpretation Comments GLUCOSE (test code = 2217) 81 MG/DL BUN (test code = 2208) 18 MG/DL CREATININE (test code = 2214) 0.86 MG/DL eGFR AMER. (test code 88 ML/MIN/1.73 = 27108) eGFR NON- AMER. (test 76 ML/MIN/1.73 code = 55700) CALC BUN/CREAT (test code = 21 RATIO [...] code = 2219) 14 U/L CBC W/AUTO [id number] 00:00:00 Test Item Value Reference Range Interpretation [...] code = 1015) 183 K/UL CBC W/AUTO [id number] 00:00:00 Test Item Value Reference Range Interpretation [...] code = 1015) 183 K/UL CBC W/AUTO [id number] 00:00:00 Test Item Value Reference Range Interpretation [...] COUNT (test code = 1015) 183 K/UL [id number] 00:00:00 Test Item Value Reference Range Interpretation Comments TSH, THIRD GENERATION (test code 2.510 UIU/ML = 2821) [id number] 00:00:00 Test Item Value Reference Range Interpretation Comments TSH, THIRD GENERATION (test code 2.510 UIU/ML = 2821) [id number] 00:00:00 Test Item Value Reference Range Interpretation Comments TSH, THIRD GENERATION (test code 2.510 UIU/ML = 2821) COMPREHENSIVE METABOLIC [id number] 00:00:00 Test Item Value Reference Range Interpretation Comments GLUCOSE (test code = 2217) 81 MG/DL BUN (test code = 2208) 18 MG/DL CREATININE (test code = 2214) 0.86 MG/DL eGFR AMER. (test code 88 ML/MIN/1.73 = 51322) eGFR NON- AMER. (test 76 ML/MIN/1.73 code = 85839) CALC BUN/CREAT (test code = 21 RATIO [...] code = 2219) 14 U/L COMPREHENSIVE METABOLIC [id number] 00:00:00 Test Item Value Reference Range Interpretation Comments GLUCOSE (test code = 2217) 81 MG/DL BUN (test code = 2208) 18 MG/DL CREATININE (test code = 2214) 0.86 MG/DL eGFR AMER. (test code 88 ML/MIN/1.73 = 42421) eGFR NON- AMER. (test 76 ML/MIN/1.73 code = 84385) CALC BUN/CREAT (test code = 21 RATIO [...] code = 2219) 14 U/L CBC W/AUTO [id number] 00:00:00 Test Item Value Reference Range Interpretation [...] code = 1015) 183 K/UL CBC W/AUTO [id number] 00:00:00 Test Item Value Reference Range Interpretation [...] code = 1015) 183 K/UL CBC W/AUTO [id number] 00:00:00 Test Item Value Reference Range Interpretation [...] COUNT (test code = 1015) 183 K/UL [id number] 00:00:00 Test Item Value Reference Range Interpretation Comments TSH, THIRD GENERATION (test code 2.510 UIU/ML = 2821) [id number] 00:00:00 Test Item Value Reference Range Interpretation Comments TSH, THIRD GENERATION (test code 2.510 UIU/ML = 2821) [id number] 00:00:00 Test Item Value Reference Range Interpretation Comments TSH, THIRD GENERATION (test code 2.510 UIU/ML = 2821) COMPREHENSIVE METABOLIC [id number] 00:00:00 Test Item Value Reference Range Interpretation Comments GLUCOSE (test code = 2217) 81 MG/DL BUN (test code = 2208) 18 MG/DL CREATININE (test code = 2214) 0.86 MG/DL eGFR AMER. (test code 88 ML/MIN/1.73 = 46903) eGFR NON- AMER. (test 76 ML/MIN/1.73 code = 73137) CALC BUN/CREAT (test code = 21 RATIO [...] code = 2219) 14 U/L COMPREHENSIVE METABOLIC [id number] 00:00:00 Test Item Value Reference Range Interpretation Comments GLUCOSE (test code = 2217) 81 MG/DL BUN (test code = 2208) 18 MG/DL CREATININE (test code = 2214) 0.86 MG/DL eGFR AMER. (test code 88 ML/MIN/1.73 = 21384) eGFR NON- AMER. (test 76 ML/MIN/1.73 code = 93772) CALC BUN/CREAT (test code = 21 RATIO 2235) SODIUM (test code = 2231) 146 MEQ/L POTASSIUM (test code = 2228) 3.8 MEQ/L CHLORIDE (test code = 2215) 105 MEQ/L CARBON DIOXIDE (test code = 30 MEQ/L 220) CALCIUM (test code = 2209) 9.0 MG/DL [...] code = 2219) 14 U/L CBC W/AUTO [id number] 00:00:00 Test Item Value Reference Range Interpretation [...] code = 1015) 183 K/UL CBC W/AUTO [id number] 00:00:00 Test Item Value Reference Range Interpretation [...] code = 1015) 183 K/UL CBC W/AUTO [id number] 00:00:00 Test Item Value Reference Range Interpretation [...] COUNT (test code = 1015) 183 K/UL [id number] 00:00:00 Test Item Value Reference Range Interpretation Comments TSH, THIRD GENERATION (test code 2.510 UIU/ML = 2821) [id number] 00:00:00 Test Item Value Reference Range Interpretation Comments TSH, THIRD GENERATION (test code 2.510 UIU/ML = 2821) [id number] 00:00:00 Test Item Value Reference Range Interpretation Comments TSH, THIRD GENERATION (test code 2.510 UIU/ML = 2821) COMPREHENSIVE METABOLIC [id number] 00:00:00 Test Item Value Reference Range Interpretation Comments GLUCOSE (test code = 2217) 81 MG/DL BUN (test code = 2208) 18 MG/DL CREATININE (test code = 2214) 0.86 MG/DL eGFR AMER. (test code 88 ML/MIN/1.73 = 07719) eGFR NON- AMER. (test 76 ML/MIN/1.73 code = 95411) CALC BUN/CREAT (test code = 21 RATIO 2235) SODIUM (test code = 2231) 146 MEQ/L POTASSIUM (test code = 2228) 3.8 MEQ/L CHLORIDE (test code = 2215) 105 MEQ/L CARBON DIOXIDE (test code = 30 MEQ/L 220) CALCIUM (test code = 2209) 9.0 MG/DL [...] code = 2219) 14 U/L COMPREHENSIVE METABOLIC [id number] 00:00:00 Test Item Value Reference Range Interpretation Comments GLUCOSE (test code = 2217) 81 MG/DL BUN (test code = 2208) 18 MG/DL CREATININE (test code = 2214) 0.86 MG/DL eGFR AMER. (test code 88 ML/MIN/1.73 = 64271) eGFR NON- AMER. (test 76 ML/MIN/1.73 code = 02255) CALC BUN/CREAT (test code = 21 RATIO [...] = 0.3 MG/DL 2207) ALKALINE PHOSPHATASE (test 91 U/L code = 2204) AST (test code = 2218) 19 U/L ALT (test code = 2219) 14 U/L CBC W/AUTO [id number] 00:00:00 Test Item Value Reference Range Interpretation [...] code = 1015) 183 K/UL CBC W/AUTO [id number] 00:00:00 Test Item Value Reference Range Interpretation [...] code = 1015) 183 K/UL CBC W/AUTO [id number] 00:00:00 Test Item Value Reference Range Interpretation [...] COUNT (test code = 1015) 183 K/UL [id number] 00:00:00 Test Item Value Reference Range Interpretation Comments TSH, THIRD GENERATION (test code 2.510 UIU/ML = 2821) [id number] 00:00:00 Test Item Value Reference Range Interpretation Comments TSH, THIRD GENERATION (test code 2.510 UIU/ML = 2821) [id number] 00:00:00 Test Item Value Reference Range Interpretation Comments TSH, THIRD GENERATION (test code 2.510 UIU/ML = 2821) COMPREHENSIVE METABOLIC [id number] 00:00:00 Test Item Value Reference Range Interpretation Comments GLUCOSE (test code = 2217) 81 MG/DL BUN (test code = 2208) 18 MG/DL CREATININE (test code = 2214) 0.86 MG/DL eGFR AMER. (test code 88 ML/MIN/1.73 = 71252) eGFR NON- AMER. (test 76 ML/MIN/1.73 code = 37101) CALC BUN/CREAT (test code = 21 RATIO [...] code = 2219) 14 U/L COMPREHENSIVE METABOLIC [id number] 00:00:00 Test Item Value Reference Range Interpretation Comments GLUCOSE (test code = 2217) 81 MG/DL BUN (test code = 2208) 18 MG/DL CREATININE (test code = 2214) 0.86 MG/DL eGFR AMER. (test code 88 ML/MIN/1.73 = 09869) eGFR NON- AMER. (test 76 ML/MIN/1.73 code = 72054) CALC BUN/CREAT (test code = 21 RATIO [...] code = 2219) 14 U/L CBC W/AUTO [id number] 00:00:00 Test Item Value Reference Range Interpretation [...] code = 1015) 183 K/UL CBC W/AUTO [id number] 00:00:00 Test Item Value Reference Range Interpretation [...]
--- NOTE | 2022-03-13 18:17 | RAD REPORT ---
EXAM DESCRIPTION: RAD -Hand Left 3 View - 03/13/2022 6:06 pm CLINICAL HISTORY: Left hand pain FINDINGS: No fracture or dislocation is seen. No significant bone or joint abnormality noted
--- NOTE | 2022-03-13 19:12 | ER ---
Nurse's Notes [facility] Name: Pati Romero Age: 57 yrs Sex: Female : 1965 Arrival Date: 03/13/2022 Time: 17:37 Bed IW2 Private MD: Diagnosis: Other sprain of left ring finger Presentation: 03/13 17:51 Chief complaint: Patient states: L 4th finger pain x 3 months after falling. ss Coronavirus screen: Client denies travel out of the [place] in the last 14 days. Ebola Screen: Patient denies exposure to infectious person. Patient denies travel to an Ebola-affected area in the 21 days before illness onset. Initial Sepsis Screen: Does the patient meet any 2 criteria? No. Patient's initial sepsis screen is negative. Does the patient have a suspected source of infection? No. Patient's initial sepsis screen is negative. Risk Assessment: Do you want to hurt yourself or someone else? Patient reports no desire to harm self or others. Onset of symptoms was December 2021. 17:51 Method Of Arrival: Ambulatory ss 17:51 Acuity: SUSAN 4 Triage Assessment: 19:25 General: Appears in no apparent distress. Behavior is calm, cooperative, appropriate ap3 for age. Pain: Complains of pain in left ring finger Pain does not radiate. Musculoskeletal: Range of motion: intact in all extremities. Injury Description: bent backwards after fall. Historical: - Allergies: 17:55 Demerol; ss - PMHx: 17:55 brain aneurysm with metal; pt was 26 yrs old; Depression; Seizures; Hypertension; ss Hypothyroidism; - PSHx: 17:55 Appendectomy; hysterectomy; ss - Immunization history:: Client reports receiving the 2nd dose of the Covid vaccine, Moderna. - Social history:: Smoking status: Patient denies any tobacco usage or history of. Screenin:25 [facility] ED Fall Risk Assessment (Adult) History of falling in the last 3 months, ap3 including since admission No falls in past 3 months (0 pts) Confusion or Disorientation No (0 pts) Intoxicated or Sedated No (0 pts) Impaired Gait No (0 pts) Mobility Assist Device Used No (0 pt) Altered Elimination No (0 pt) Score/Fall Risk Level 0 - 2 = Low Risk Maintained a safe environment, Educated pt \T\ family on fall prevention, incl call for assistance when getting out of bed. Abuse screen: Denies threats or abuse. Nutritional screening: No deficits noted. Tuberculosis screening: No symptoms or risk factors identified. Vital Signs: 17:51 BP 111 / 83; Pulse 83; Resp 16; Temp 98.2(TE); Pulse Ox 98% on R/A; Weight 72.57 kg; ss Height 5 ft. 1 in. (154.94 cm); Pain 8/10; 17:51 Body Mass Index 30.23 (72.57 kg, 154.94 cm) ED Course: 17:37 Patient arrived in ED. am2 17:38 Mar[facility]ruz Gloria [facility] 7 17:38 Fabiola De Jesus MD is Attending Physician. 7 17:55 Triage completed. 17:55 Arm band placed on right wrist. 18:07 XRAY Hand LEFT 3 View In Process Unspecified. EDMS 19:12 Victor Hugo Mendosa MD is Referral Physician. [facility] 19:26 No provider procedures requiring assistance completed. Patient did not have IV access ap3 during this emergency room visit. Administered Medications: 19:24 Drug: Ibuprofen 600 mg Route: PO; ap3 19:24 Follow up: Response: Medication administered at discharge. ap3 Medication: 19:27 VIS not applicable for this client. ap3 Outcome: 19:11 Discharge ordered by . 7 19:26 Discharged to home ambulatory. ap3 19:26 Condition: good 19:26 Discharge instructions given to patient, Instructed on discharge instructions, follow up and referral plans. medication usage, Demonstrated understanding of instructions, follow-up care, medications. 19:27 Patient left the ED. ap3 Signatures: Dispatcher [employer] EDMS Rocío Grace RN RN ss Meg Pickard am2 Meg Castillo RN RN ap3 Maricruz Gloria FNP FNP [facility]
--- NOTE | 2022-03-13 19:12 | EDPHYS ---
Physician Documentation [facility] Name: Pati Romero Age: 57 yrs Sex: Female : 1965 Arrival Date: 03/13/2022 Time: 17:37 Bed IW2 Private MD: ED Physician Fabiola De Jesus HPI: 03/13 17:55 This 57 yrs old Female presents to ER via Ambulatory with complaints of Finger jh7 Injury - left hand. 19:37 Patient states that 3 months ago she fell and injured her left fourth finger. Reports jh7 that there was a deformity then and that her brother popped it back into place. Reports continued pain for the past 3 months with slight decrease in range of motion.. Historical: - Allergies: 17:55 Demerol; ss - PMHx: 17:55 brain aneurysm with metal; pt was 26 yrs old; Depression; Seizures; Hypertension; ss Hypothyroidism; - PSHx: 17:55 Appendectomy; hysterectomy; ss - Immunization history:: Client reports receiving the 2nd dose of the Covid vaccine, Moderna. - Social history:: Smoking status: Patient denies any tobacco usage or history of. ROS: 19:37 Constitutional: Negative for fever, chills, and weight loss, Eyes: Negative for injury, jh7 pain, redness, and discharge, Cardiovascular: Negative for chest pain, palpitations, and edema, Respiratory: Negative for shortness of breath, cough, wheezing, and pleuritic chest pain, Back: Negative for injury and pain, Skin: Negative for injury, rash, and discoloration, Neuro: Negative for headache, weakness, numbness, tingling, and seizure. 19:37 MS/extremity: Positive for decreased range of motion, pain, swelling, Negative for 19:37 All other systems are negative. Exam: 19:37 Constitutional: This is a well developed, well nourished patient who is awake, alert, jh7 and in no acute distress. Cardiovascular: Regular rate and rhythm with a normal S1 and S2. No gallops, murmurs, or rubs. Normal PMI, no JVD. No pulse deficits. Respiratory: Lungs have equal breath sounds bilaterally, clear to auscultation and percussion. No rales, rhonchi or wheezes noted. No increased work of breathing, no retractions or nasal flaring. Back: No spinal tenderness. No costovertebral tenderness. Full range of motion. Skin: Warm, dry with normal turgor. Normal color with no rashes, no lesions, and no evidence of cellulitis. Neuro: Awake and alert, GCS 15, oriented to person, place, time, and situation. Sensory grossly intact. Normal gait. 19:37 Musculoskeletal/extremity: ROM: limited active range of motion, in the left ring finger, Mild decrease in flexion at the PIP of the left fourth finger secondary to pain, Circulation is intact in all extremities. Sensation intact. Mild swelling noted at the left fourth PIP. Vital Signs: 17:51 BP 111 / 83; Pulse 83; Resp 16; Temp 98.2(TE); Pulse Ox 98% on R/A; Weight 72.57 kg; ss Height 5 ft. 1 in. (154.94 cm); Pain 8/10; 17:51 Body Mass Index 30.23 (72.57 kg, 154.94 cm) ss MDM: 17:38 Patient medically screened. [facility] 18:50 Differential diagnosis: Finger dislocation, finger sprain, tendon injury. Data [facility] reviewed: vital signs, nurses notes, radiologic studies. Data interpreted: Pulse oximetry: is 98 %. Interpretation: normal. Counseling: I had a detailed discussion with the patient and/or guardian regarding: the historical points, exam findings, and any diagnostic results supporting the discharge/admit diagnosis, the need for outpatient follow up, a hand specialist, to return to the emergency department if symptoms worsen or persist or if there are any questions or concerns that arise at home. ED course: Due to possible tendon or ligament injury of the phalanx, the patient was advised to follow-up with hand for further care. The patient agreed with plan of care.. 03/13 17:55 Order name: XRAY Hand LEFT 3 View; Complete Time: 18:38 [facility] Administered Medications: 19:24 Drug: Ibuprofen 600 mg Route: PO; ap3 19:24 Follow up: Response: Medication administered at discharge. ap3 Disposition Summary: 03/13/22 19:11 Discharge Ordered Location: Home [facility] Problem: new [facility] Symptoms: are unchanged [facility] Condition: Stable [facility] Diagnosis - Other sprain of left ring finger [facility] Followup: [facility] - With: Victor Hugo Mendosa MD - When: 2 - 3 days - Reason: Further diagnostic work-up Discharge Instructions: - Discharge Summary Sheet [facility] - Finger Sprain, Adult [facility] Forms: - Medication Reconciliation Form [facility] - Thank You Letter [facility] Signatures: Dispatcher [employer] Rocío Davies, JAE RN ss Meg Castillo RN RN ap3 Maricruz Gloria, CURTAIN STRETCHER CURTAIN STRETCHER [facility] Corrections: (The following items were deleted from the chart) : 17:55 Trauma demographics: Location of Injury: The injury occurred at home, [place] [id number] 17:55 Mechanism of injury: Penetrating trauma: inflicted by [place], [place] [address] :38 17:55 Associated injuries: The patient sustained [place] [id number]
[2022-03-13] MEDS ORDERED: IBUPROFEN 200 MG TAB PO ONE (19:23)
[2022-03-13] MEDS ORDERED: IBUPROFEN 400 MG TAB ONE (19:23)
[2022-03-13 19:38] VITALS: BP 111/83; TEMP 98.2; O2SAT 98
== END 2022-03-13 19:27 | disposition home or self-care (01) ==
LOC: ER 17:36
DX: S63.695A Other sprain of left ring finger, initial encounter (principal); Z88.5 Allergy status to narcotic agent
CPT/HCPCS: 99283

== ENCOUNTER 2022-05-15 08:50 | Emergency (ER) | payer OTHER ==
[2022-05-15] MEDS ORDERED: ACETAMINOPHEN 500 MG TAB ONE (09:11)
[2022-05-15] MEDS ORDERED: NA CHLORIDE 0.9% 1,000 ML ONE (09:12)
[2022-05-15] MEDS ORDERED: ONDANSETRON 4 MG/2 ML VIAL ONE (09:12)
[2022-05-15] MEDS ORDERED: MECLIZINE HCL 12.5 MG TAB ONE (09:12)
[2022-05-15 09:16] LABS: Absolute Lymphocytes (CBC) 1.5 K/uL (0.7-4.9); Hematocrit 40.2 % (36.0-45.0); Lymphocytes % 26.3 % (15.3-44.8); MCV 95.2 fL (80-100); MPV 7.7 fL (7.6-11.3); RBC Red Blood Cell Count 4.22 M/uL (3.86-4.86)
--- OUTSIDE RECORDS SUMMARY | 2022-05-15 09:32 | XMS REPORT | Continuity of Care Document ---
:1965 Author Organization [facility] t Address [address] [place] [address] Care Team Providers Name Role Phone Sachin Daugherty Primary Care Physician Markos Mackay Attending Clinician Ting Mendoza MA Attending Clinician Unavailable DELORES RODRIGUES Attending Clinician Unavailable MARKOS MACKAY Attending Clinician Unavailable Doctor Unassigned, [place] Attending Clinician Unavailable Nika Vu RN Attending Clinician Unavailable CAMILA VILLA K.H. Attending Clinician Unavailable Daisy VELASCO, Camila K.H. Attending Clinician JOHN SOLORIO Attending Clinician Unavailable Ольга Daniels PT Attending Clinician Unavailable John Solorio MD Attending Clinician Ijeoma Retana PTA [...] 0-11 07:25:00 l D D Active 00:00: [place] [address] Chronic Chronic Disease Active 2019-0 Univers left left 8-25 ity of shoulder shoulder 00:00: [place] pain pain Medical Branch Chronic Chronic Disease Active 2019-0 Univers left left 8-25 ity of shoulder shoulder 00:00: [place] pain pain [facility] Branch No known No known Disease Unive rs active active ity of problems problems [facility] Carpal Carpal Problem Active 2022-05-05 Mem oria tunnel 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 [place] n (disorder) (disorder) Active Problem 05/05/2022 [facility] 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 23:52:19 l s s [place] (disorder) (disorder) Active Problem 05/05/2022 [facility] Neurology [facility] 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 (disorder) (disorder) Active Problem 05/05/2022 [facility] Essential Essential Problem Active 2022-05-05 Memsony tremor tremor 23:52:19 l (disorder) (disorder) He rmann Active Problem 05/05/2022 [facility] Foot-drop Foot-drop Problem Active 2022-05-05 Memoria (finding) (finding) 23:52:19 l Active [place] Problem 05/05/2022 [facility] Neurology Ponder History of History Problem Active 2022-05-05 Memoria - of - 23:52:19 l subarachno subarachno He rmann id id hemorrhage hemorrhage (context-d (context-d ependent ependent category) category) Active Problem 05/05/2022 [facility] Hypertensi Hypertens Problem Active 2022-05-05 Memoria ve laurita 23:52:19 l disorder, disorder, Herm clarice systemic systemic arterial arterial (disorder) (disorder) Active Problem 05/05/2022 [facility] Hypothyroi Hypothyro Problem Active 2022-05-05 Memoria dism idism 23:52:19 l (disorder) (disorder) He rmann Active Problem [facility] Neuropath Problem Active 2022-05-05 Memoria of lower y of lower 23:52:19 l limb limb Trent (disorder) (disorder) Active Problem 05/05/2022 [facility] Tremor Tremor Problem Active 2022-05-05 Jose Daniel irasema (finding) (finding) 23:52:19 l Active [place] Problem 05/05/2022 [facility] Vertigo Vertigo Problem Active 2022-05-05 Me moria (finding) (finding) 23:52:19 l Active [place] Problem 05/05/2022 [facility] Allergies, Adverse Reactions, Alerts Allergy Allergy Status [...] 00:00: and [place] reaction 00 throat Medical closes Branch MEPERIDI DRUG Active Anaphylaxis Uni vers NE (PF) 3-30 ity of 00:00: [place] [address] Medical Branch NO KNOWN Drug Active Univers ALLERGIE Class ity of S [facility] Demerol Demerol Active Erika l [place] Social History Social Habit Start Date Stop Date Quantity Comments Source Exposure to Not sure [facility] SARS-CoV-2 [facility] (event) Branch Social History 2022-01-31 2022-01-31 Christine morfin 15:14:25 15:14:25 Alcohol intake 2019-09-19 2019-09-19 Ex-drinker [facility] 00:00:00 00:00:00 (finding) [facility] Tobacco use and 2019-09-19 2019-09-19 Never used Universit y of exposure 00:00:00 00:00:00 [facility] Smoking Status Start Date Stop Date Source Tobacco smoking status [facility] Medications Ordered Filled Start Stop Current Ordering Indication Dosage Frequency Signature Comments Components Source Medication Medication Date Date Medication? Clinician (SIG) Name Name TAKE No TABLET 1-02 TWICE 00:00: DAILY. 00 TAKE 2021-03 No TABLET BY 2-31 MOUTH EVERY 00:00: 8 HOURS 00 NEEDED FAMOTIDINE 2021-03 No 20 20 MG TABS 2-13 00:00: 00 PRAZOSIN 2021-03 No 1 HCL 1 MG 2-13 CAPS 00:00: 00 LAMOTRIGINE 2021-03 No 200 200 MG TABS 2-13 00:00: 00 AMLODIPINE 2021-03 No 10 BESYLATE 10 2-13 MG TABS 00:00: 00 Dose 2021-03 No Unknown 2-13 00:00: 00 GABAPENTIN 2021-03 No 300 300 MG CAPS 2-13 00:00: 00 MIRTAZAPINE 2021-03 No 15 15 MG TABS 2-13 00:00: 00 HYDROXYZINE 2021-03 No 25 PAMOATE 25 2-13 MG CAPS 00:00: 00 UNITHROID 2021-03 No 125 MCG 2-13 TABS 00:00: 00 TAKE 2021-03 No 75 TABLET AT 2-13 BEDTIME. 00:00: 00 LEVOTHYROXI 2021-03 No NE SODIUM 2-13 137 MCG 00:00: TABS 00 Dose 2021-03 No Unknown 2-13 00:00: 00 Dose 2021-03 No Unknown 2-13 00:00: 00 Take 2021-03 No tablet by 2-13 mouth daily 00:00: 00 Dose 2021-03 No Unknown 2-13 00:00: 00 Dose 2021-03 No Unknown 2-13 00:00: 00 LEVETIRACET 2021-03 No 500 AM 500 MG 2-13 TABS 00:00: 00 SULFAMETHOX 2021-03 No AZOLE/TRIME 2-13 THOPRIM DS 00:00: 800-160 MG 00 TABS MECLIZINE 2021-03 No 25 HYDROCHLORI 2-13 DE 25 MG 00:00: TABS 00 MECLIZINE 2021-03 No 125 HYDROCHLORI 2-13 DE 12.5 MG 00:00: TABS 00 TAKE 2021-03 No [id number] TABLET 2-13 TWICE 00:00: DAILY. 00 AMOXICILLIN 1 No 500 500 MG CAPS 2-13 00:00: 00 TAKE ONE 2021-03 No TABLET BY 2-13 MOUTH TWICE 00:00: DAILY 00 Dose 2021- No Unknown 2-13 00:00: 00 meclizine 2021-0 Yes 12.5 mg = Mem oria 12.5 mg 9-15 1 tab, PO, l oral tablet 16:55: BID, X 14 H ermann 00 day, # 28 tab, 1 Refill(s), Pharmacy: [facility] Pharmacy, 154.94, cm, 11/24/21 11:34:00 CDT, Height, 69.091, kg, 11/24/21 11:34:00 CDT, Weight meclizine 2021-0 Yes 12.5 mg = Mem oria 12.5 mg 9-15 1 tab, PO, l oral tablet 16:55: BID, X 14 H ermann 00 day, # 28 tab, 1 Refill(s), Pharmacy: [facility] Pharmacy, 154.94, cm, 11/24/21 11:34:00 CDT, Height, 69.091, kg, 11/24/21 11:34:00 CDT, Weight meclizine 2021-0 Yes 12.5 mg = Mem oria 12.5 mg 9-15 1 tab, PO, l oral tablet 16:55: BID, X 14 H ermann 00 day, # 28 tab, 1 Refill(s), Pharmacy: [facility] Pharmacy, 154.94, cm, 11/24/21 11:34:00 CDT, Height, 69.091, kg, 11/24/21 11:34:00 CDT, Weight meclizine 2021-0 Yes 12.5 mg = Mem oria 12.5 mg 9-15 1 tab, PO, l oral tablet 16:55: BID, X 14 H ermann 00 day, # 28 tab, 1 Refill(s), Pharmacy: [facility] Pharmacy, 154.94, cm, 11/24/21 11:34:00 CDT, Height, 69.091, kg, 11/24/21 11:34:00 CDT, Weight meclizine 2021-0 Yes 12.5 mg = Mem oria 12.5 mg 9-15 1 tab, PO, l oral tablet 16:55: BID, X 14 H erm day, # 28 tab, 1 Refill(s), Pharmacy: [facility] Pharmacy, 154.94, cm, 11/24/21 11:34:00 CDT, Height, 69.091, kg, 11/24/21 11:34:00 CDT, Weight meclizine 2021-0 Yes 12.5 mg = Mem oria 12.5 mg 11-24 1 tab, PO, l oral tablet 16:55: BID, X 14 H erm day, # 28 tab, 1 Refill(s), Pharmacy: [facility] Pharmacy, 154.94, cm, 11/24/21 11:34:00 CDT, Height, 69.091, kg, 11/24/21 11:34:00 CDT, Weight Take 1.5 2022-0 No tablets by 9 mouth 00:00: nightly 00 Take 1.5 2022-0 No tablets by 11-15 mouth 00:00: nightly 00 Take 1.5 2022-0 No tablets by 11-15 mouth 00:00: nightly 00 Take 1.5 2022-0 No tablets by 11-15 mouth 00:00: nightly 00 Take 1.5 2022-0 No tablets by 9- mouth 00:00: nightly 00 Take 1.5 2022-0 No tablets by 9- mouth 00:00: nightly 00 Take 1 2022-0 [...] mouth daily 00:00: 00 &lt 2022-0 No 8- 00:00: 00 &lt 2022-0 No 250 10-14 00:00: 00 Dose 2022-0 No Unknown 10-14 00:00: 00 Dose 2022-0 No Unknown 8-05 [...] tablet 00:00: 00 &lt 2022-0 No 500 8-02 00:00: 00 Take 1 2022-0 No tablet by 8-02 mouth daily 00:00: 00 Take 1 2022-0 No capsule by 8-02 mouth at 00:00: bedtime 00 &lt 2022-0 No 20 8-02 00:00: 00 Dose 2022-0 No Unknown 8-02 00:00: 00 primidone 2022-0 No 1mg 50 [...] 00 primidone 2022-0 No 1mg 50 mg - tablet 00:00: 00 &lt 2022-0 No 500 [...] Dose 2022-0 No Unknown 10-11 00:00: 00 Dose 2022-0 No Unknown 10-11 00:00: 00 &lt 2022-0 No 500 10-11 00:00: 00 Take 1 2-0 No tablet by 8 mouth daily 00:00: 00 Take 1 2022-0 No capsule by 8 mouth at 00:00: bedtime 00 &lt 2022-0 No 20 10-11 00:00: 00 Dose 2022-0 No Unknown 10-11 00:00: 00 primidone 2-0 No 1mg 50 mg 10-11 tablet 00:00: 00 &lt 2022-0 No 500 [...] &lt 2022-0 No 10-07 00:00: 00 Dose 2-0 No Unknown 10-07 00:00: 00 Take 1.5 [...] 10-07 00:00: 00 Dose 2022-0 No Unknown 7- 00:00: 00 Take 1.5 2-0 No tablets by 7-29 mouth 00:00: nightly 00 Take 1 2-0 No tablet by 729 mouth daily 00:00: 00 &lt 2022-0 No 7- 00:00: 00 Dose 2022-0 No Unknown 7 00:00: 00 Take 1.5 2-0 No tablets by 7-29 mouth 00:00: nightly 00 Dose 2022-0 No Unknown 7- 00:00: 00 Dose 2022-0 No 20 Unknown 7- 00:00: 00 &lt 2022-0 No 7-13 00:00: 00 Dose 2022-0 No Unknown 7- 00:00: 00 &lt 2022-0 No 7- 00:00: 00 Dose 2022-0 No Unknown 7- 00:00: 00 Dose 2022-0 No 20 Unknown 7-13 00:00: 00 &lt 2022-0 No 7-13 00:00: 00 Dose 2022-0 No Unknown 7- 00:00: 00 &lt 2022-0 No [...] Dose 2022-0 No Unknown 7- 00:00: 00 &lt 2022-0 No 7- 00:00: 00 Take 1 2022-0 No tablet [...] No 6-18 00:00: 00 Dose 2022-0 No 500mcg Unknown 6-18 00:00: 00 &lt 2022-0 No 6-18 00:00: 00 levothyroxi 2022-0 No 1mcg ne 125 mcg 6-18 tablet 00:00: 00 &lt 2022-0 No 6-18 00:00: 00 Dose 2022-0 No Unknown 6- 00:00: 00 Dose 2022-0 No Unknown 6- 00:00: 00 Dose 2022-0 No Unknown 6- 00:00: 00 Dose 2022-0 No Unknown 6- 00:00: 00 Dose 2022-0 No Unknown 6-13 00:00: 00 Dose 2022-0 No Unknown 6- 00:00: 00 Dose 2022-0 No Unknown 6- 00:00: 00 &lt 2022-0 No 6-08 00:00: [...] 00 &lt 2022-0 No 6-02 00:00: 00 Dose 2022-0 No 25mg/5 Unknown 6-02 mL 00:00: 00 &lt 2022-0 No 6-02 00:00: 00 &lt [...] 1mg 20 mg 5-28 tablet 00:00: 00 TAKE 1 2-0 No TABLET 5-28 TWICE 00:00: DAILY. 00 TAKE 1 2022-0 No TABLET 5-28 TWICE 00:00: DAILY. 00 TAKE ONE 2022-0 No 1mg TABLET IN 528 THE MORNING 00:00: AND 2 00 TABLETS AT NIGHT, Dose 2022-0 No 500mcg Unknown - 00:00: 00 prazosin 1 2022-0 No 1mg mg capsule -28 00:00: 00 [...] 2mg mg tablet 08-06 00:00: 00 levothyroxi 2-0 No 1mcg ne 137 mcg 5-28 tablet 00:00: 00 prazosin 1 2-0 No 1mg mg capsule -28 00:00: 00 gabapentin 2022-0 No 1mg 300 mg 5-28 capsule 00:00: 00 primidone 2022-0 Yes 50 mg = 1 Mem oria 50 mg oral 4-20 tab, PO, l tablet 20:38: Bedtime, # Evonne nn 00 90 tab, 1 Refill(s), Pharmacy: [facility], 157.48, cm, 01/27/21 9:27:00 [facility], Height, 95.455, kg, 01/27/21 9:27:00 [facility], Weight primidone 2022-0 Yes 50 mg = 1 Mem oria 50 mg oral 4-20 tab, PO, l tablet 20:38: Bedtime, # Evonne nn 00 90 tab, 1 Refill(s), Pharmacy: [facility], 157.48, cm, 01/27/21 9:27:00 [facility], Height, 95.455, kg, 01/27/21 9:27:00 [facility], Weight primidone 2-0 Yes 50 mg = 1 Mem oria 50 mg oral 4-20 tab, PO, l tablet 20:38: Bedtime, # Evonne nn 00 90 tab, 1 Refill(s), Pharmacy: [facility], 157.48, cm, 01/27/21 9:27:00 [facility], Height, 95.455, kg, 01/27/21 9:27:00 [facility], Weight primidone 2021-0 Yes 50 mg = 1 Mem oria 50 mg oral 4-20 tab, PO, l tablet 20:38: Bedtime, # Evonne nn 00 90 tab, 1 Refill(s), Pharmacy: [facility], 157.48, cm, 01/27/21 9:27:00 [facility], Height, 95.455, kg, 01/27/21 9:27:00 [facility], Weight primidone 2021-0 Yes 50 mg = 1 Mem oria 50 mg oral 4-20 tab, PO, l tablet 20:38: Bedtime, # Evonne nn 00 90 tab, 1 Refill(s), Pharmacy: [facility], 157.48, cm, 01/27/21 9:27:00 [facility], Height, 95.455, kg, 01/27/21 9:27:00 [facility], Weight primidone 2021-0 Yes 50 mg = 1 Mem oria 50 mg oral 4-20 tab, PO, l tablet 20:38: Bedtime, # Evonne nn 00 90 tab, 1 Refill(s), [facility]: [facility], 157.48, cm, 01/27/21 9:27:00 [facility], Height, 95.455, kg, 01/27/21 9:27:00 [facility], Weight Dose 2021-0 No Unknown 4-20 00:00: 00 Dose 2022-0 [...] 1mg 200 mg 2-09 tablet 00:00: 00 Dose 2022-0 No Unknown 2-09 00:00: 00 paroxetine 2022-0 No 15mg [...] prazosin 1 2022-0 No 1mg mg capsule 1- 00:00: 00 paroxetine 2022-0 No 15mg 40 mg 1-13 tablet 00:00: 00 prazosin 1 2022-0 No 1mg mg capsule 1- 00:00: 00 paroxetine 2022-0 No 15mg 40 mg 1-13 tablet 00:00: 00 prazosin 1 2022-0 No 1mg mg capsule 03-24 00:00: 00 paroxetine 2022-0 No 15mg 40 mg -13 tablet 00:00: 00 prazosin 1 2022-0 No 1mg mg capsule 03-24 00:00: 00 paroxetine 2022-0 No 15mg 40 mg -13 tablet 00:00: 00 prazosin 1 2022-0 No 1mg mg capsule 03-24 00:00: 00 paroxetine 2022-0 No 15mg 40 mg -13 tablet 00:00: 00 prazosin 1 2022-0 No 1mg mg capsule 03-24 00:00: 00 paroxetine 2022-0 No 15mg 40 mg -13 tablet 00:00: 00 prazosin 1 2022-0 No [...] 300 mg 1-04 capsule 00:00: 00 amlodipine 2-0 No 1mg 10 mg 1-04 tablet 00:00: 00 lisinopril 2-0 No 1mg 20 1-04 mg-hydrochl 00:00: orothiazide 00 12.5 mg tablet famotidine 2-0 No 1mg 20 mg 1-04 tablet 00:00: 00 Keppra 500 2-0 No 2mg mg tablet 1-04 00:00: 00 levothyroxi 2-0 No 1mcg ne 137 mcg 1-04 tablet [...] 1mg mg capsule 2-16 00:00: 00 paroxetine 1-1 No 15mg 40 mg 2-16 tablet 00:00: 00 prazosin 1 2020-1 No 1mg mg capsule 2-16 00:00: 00 paroxetine 1-1 No 15mg 40 mg 2-16 tablet 00:00: 00 prazosin 1 2020-1 No 1mg mg capsule 2-16 00:00: 00 paroxetine 1-1 No 15mg 40 mg 2-16 tablet 00:00: 00 prazosin 1 1-1 No 1mg mg capsule 2-16 00:00: 00 paroxetine 1-1 No 15mg 40 mg 2-16 tablet 00:00: 00 prazosin 1 2020-1 No 1mg mg capsule 2-16 00:00: 00 propranolol 1-1 No 10 mg = 1 M emoria 10 mg oral 1-29 tab, PO, l tablet 21:30: BID, # 60 Ken[place] n 00 tab, 3 Refill(s), Pharmacy: [facility], 157.48, cm, 01/27/21 9:27:00 [facility], Height, 95.455, kg, 01/27/21 9:27:00 [facility], Weight propranolol 2020-03 No 10 mg = 1 M emoria 10 mg oral 1-29 tab, PO, l tablet 21:30: BID, # 60 [place] n 00 tab, 3 Refill(s), Pharmacy: [facility], 157.48, cm, 01/27/21 9:27:00 [facility], Height, 95.455, kg, 01/27/21 9:27:00 [facility], Weight propranolol 2020-03 No 10 mg = 1 M emoria 10 mg oral 1-29 tab, PO, l tablet 21:30: BID, # 60 [place] n 00 tab, 3 Refill(s), Pharmacy: [facility], 157.48, cm, 01/27/21 9:27:00 [facility], Height, 95.455, kg, 01/27/21 9:27:00 [facility], Weight propranolol 2020-03 No 10 mg = 1 M emoria 10 mg oral 1-29 tab, PO, l tablet 21:30: BID, # 60 [place] n 00 tab, 3 Refill(s), Pharmacy: [facility], 157.48, cm, 01/27/21 9:27:00 [facility], Height, 95.455, kg, 01/27/21 9:27:00 [facility], Weight propranolol 2020-03 No 10 mg = 1 M emoria 10 mg oral 1-29 tab, PO, l tablet 21:30: BID, # 60 [place] n 00 tab, 3 Refill(s), Pharmacy: [facility], 157.48, cm, 01/27/21 9:27:00 [facility], Height, 95.455, kg, 01/27/21 9:27:00 [facility], Weight propranolol 2020-03 No 10 mg = 1 M emoria 10 mg oral 1-29 tab, PO, l tablet 21:30: BID, # 60 [place] n 00 tab, 3 Refill(s), Pharmacy: [facility], 157.48, cm, 01/27/21 9:27:00 [facility], Height, 95.455, kg, 01/27/21 9:27:00 [facility], Weight paroxetine 2020-1 No 15mg 40 mg -27 tablet 00:00: 00 risperidone 1-1 No 1mg 3 mg tablet 04-07 00:00: 00 amlodipine 1-1 No 1mg 10 mg -27 tablet 00:00: 00 prazosin 1 1-1 No 1mg mg capsule 04-07 00:00: 00 paroxetine 2020-1 No 15mg 40 mg -27 tablet 00:00: 00 risperidone 1-1 No 1mg 3 mg tablet 04-07 00:00: 00 amlodipine 1-1 No 1mg 10 mg -27 tablet 00:00: 00 prazosin 1 1-1 No 1mg mg capsule 04-07 00:00: 00 paroxetine 1-1 No 15mg 40 mg 04-07 tablet 00:00: 00 risperidone 1-1 No 1mg 3 mg tablet 04-07 00:00: 00 amlodipine 1-1 No 1mg 10 mg 04-07 tablet 00:00: 00 prazosin 1 1-1 No 1mg mg capsule 04-07 00:00: 00 paroxetine 1-1 No 15mg 40 mg 04-07 tablet 00:00: 00 risperidone 1-1 No 1mg 3 mg tablet 04-07 00:00: 00 amlodipine 1-1 No 1mg 10 mg 04-07 tablet 00:00: 00 prazosin 1 1-1 No 1mg mg capsule 04-07 00:00: 00 paroxetine 1-1 No 15mg 40 mg 04-07 tablet 00:00: 00 risperidone 1-1 No 1mg 3 mg tablet 04-07 00:00: 00 amlodipine 1-1 No 1mg 10 mg 04-07 tablet 00:00: 00 prazosin 1 1-1 No 1mg mg capsule 04-07 00:00: 00 paroxetine 1-1 No 15mg 40 mg 04-07 tablet 00:00: 00 risperidone 1-1 No 1mg 3 mg tablet 04-07 00:00: 00 amlodipine 1-1 No 1mg 10 mg -27 tablet 00:00: 00 prazosin 1 1-1 No 1mg mg capsule 04-07 00:00: 00 paroxetine 1-1 No 15mg 40 mg 27 tablet 00:00: 00 risperidone 2021-1 No 1mg 3 mg tablet 04-07 00:00: 00 amlodipine 2020-03 No 1mg 10 mg 04-07 tablet 00:00: 00 prazosin 1 2020-03 No 1mg mg capsule 04-07 00:00: 00 primidone 2020-03 Yes 50 mg = 1 Mem oria 50 mg oral 1-18 tab, PO, l tablet 15:43: TID, # 90 [place] n 00 tab, 3 Refill(s), Pharmacy: [facility], 157.48, cm, 01/27/21 9:27:00 [facility], Height, 95.455, kg, 01/27/21 9:27:00 [facility], Weight primidone 2020-03 Yes 50 mg = 1 Mem oria 50 mg oral 1-18 tab, PO, l tablet 15:43: TID, # 90 [place] n 00 tab, 3 Refill(s), Pharmacy: [facility], 157.48, cm, 01/27/21 9:27:00 [facility], Height, 95.455, kg, 01/27/21 9:27:00 [facility], Weight primidone 2020-03 Yes 50 mg = 1 Mem oria 50 mg oral 1-18 tab, PO, l tablet 15:43: TID, # 90 [place] n 00 tab, 3 Refill(s), Pharmacy: [facility], 157.48, cm, 01/27/21 9:27:00 [facility], Height, 95.455, kg, 01/27/21 9:27:00 [facility], Weight primidone 2020-03 Yes 50 mg = 1 Mem oria 50 mg oral 1-18 tab, PO, l tablet 15:43: TID, # 90 [place] n 00 tab, 3 Refill(s), Pharmacy: [facility], 157.48, cm, 01/27/21 9:27:00 [facility], Height, 95.455, kg, 01/27/21 9:27:00 [facility], Weight primidone 2020-03 Yes 50 mg = 1 Mem oria 50 mg oral 1-18 tab, PO, l tablet 15:43: TID, # 90 [place] n 00 tab, 3 Refill(s), Pharmacy: [facility], 157.48, cm, 01/27/21 9:27:00 [facility], Height, 95.455, kg, 01/27/21 9:27:00 [facility], Weight primidone 2020-03 Yes 50 mg = 1 Mem oria 50 mg oral 1-18 tab, PO, l tablet 15:43: TID, # 90 [place] n 00 tab, 3 Refill(s), Pharmacy: [facility], 157.48, cm, 01/27/21 9:27:00 [facility], Height, 95.455, kg, 01/27/21 9:27:00 [facility], Weight risperidone 2020-03 No 1mg 3 mg [...] nn 00 90 tab, 3 Refill(s), Pharmacy: [facility], 160.02, cm, 12/16/20 10:35:00 CDT, Height, 98.636, kg, 12/16/20 10:35:00 CDT, Weight primidone 2020-03 No 50 mg = 1 Mem oria 50 mg oral 0-11 tab, PO, l tablet 19:49: Bedtime, # Evonne nn 00 90 tab, 3 Refill(s), Pharmacy: [facility], 160.02, cm, 12/16/20 10:35:00 CDT, Height, 98.636, kg, 12/16/20 10:35:00 CDT, Weight primidone 2020-03 No 50 mg = 1 Mem oria 50 mg oral 0-11 tab, PO, l tablet 19:49: Bedtime, # Evonne nn 00 90 tab, 3 Refill(s), Pharmacy: [facility], 160.02, cm, 12/16/20 10:35:00 CDT, Height, 98.636, kg, 12/16/20 10:35:00 CDT, Weight primidone 2020-03 No 50 mg = 1 Mem oria 50 mg oral 0-11 tab, PO, l tablet 19:49: Bedtime, # Evonne nn 00 90 tab, 3 Refill(s), Pharmacy: [facility], 160.02, cm, 12/16/20 10:35:00 CDT, Height, 98.636, kg, 12/16/20 10:35:00 CDT, Weight primidone 2020-03 No 50 mg = 1 Mem oria 50 mg oral 0-11 tab, PO, l tablet 19:49: Bedtime, # Evonne nn 00 90 tab, 3 Refill(s), Pharmacy: [facility], 160.02, cm, 12/16/20 10:35:00 CDT, Height, 98.636, kg, 12/16/20 10:35:00 CDT, Weight primidone 2020-03 No 50 mg = 1 Mem oria 50 mg oral 0-11 tab, PO, l tablet 19:49: Bedtime, # Evonne nn 00 90 tab, 3 Refill(s), Pharmacy: [facility], 160.02, cm, 12/16/20 10:35:00 CDT, Height, 98.636, kg, 12/16/20 10:35:00 CDT, Weight risperidone 2020-03 No 1mg 3 mg tablet 0-04 00:00: 00 paroxetine 2020-03 No 15mg 40 mg 0-04 tablet 00:00: 00 prazosin 1 2020- No 1mg mg capsule 0-04 00:00: 00 risperidone 2020-1 No 1mg 3 mg tablet 0-04 00:00: 00 paroxetine 2020- No 15mg 40 mg 0-04 tablet 00:00: 00 prazosin 1 2020- No 1mg mg capsule 0-04 00:00: 00 risperidone 2020-1 No 1mg 3 mg tablet 0-04 00:00: 00 paroxetine 2020-1 No 15mg 40 mg 0-04 tablet 00:00: 00 prazosin 1 2020- No 1mg mg capsule 0-04 00:00: 00 [...] prazosin 1 2021-1 No 1mg mg capsule 00:00: 00 paroxetine 2021-0 No 1mg 40 [...] Keppra 500 2021-0 No 2mg mg tablet 8 00:00: 00 levothyroxi 2021-0 No 1mcg ne [...] Keppra 500 1-0 No 2mg mg tablet 17 00:00: 00 levothyroxi 2021-0 No 1mcg ne [...] 00 paroxetine 2021-0 No 1mg 40 mg -12 tablet 00:00: 00 prazosin 1 2021-0 No 1mg mg capsule 09-20 00:00: 00 risperidone 2021-0 No 1mg 3 mg tablet 09-20 00:00: 00 paroxetine 2021-0 No 1mg 40 mg -12 tablet 00:00: 00 prazosin 1 2021-0 No [...] Keppra 500 2021-0 No 2mg mg tablet 6-10 00:00: 00 Keppra 500 2021-0 No 1mg mg tablet 6-10 00:00: 00 Keppra 500 2021-0 No 2mg mg tablet 6-10 00:00: 00 Keppra 500 2021-0 No 1mg mg tablet 6-10 00:00: 00 Keppra 500 2021-0 No 2mg mg tablet 6-10 00:00: 00 Keppra 500 2021-0 No 1mg mg tablet 6-10 00:00: 00 Keppra 500 2021-0 No 2mg mg tablet 6-10 00:00: 00 Keppra 500 2021-0 No 1mg mg tablet 6-10 00:00: 00 Keppra 500 2021-0 No 2mg mg tablet 6-10 00:00: 00 Keppra 500 2021-0 No 1mg mg tablet 6 00:00: 00 Keppra 500 2021-0 No 2mg mg tablet 6 00:00: 00 Keppra 500 1-0 No 1mg mg tablet 08-19 00:00: 00 Keppra 500 1-0 No 2mg mg tablet 08-19 00:00: 00 Keppra 500 1-0 No 1mg mg tablet 08-19 00:00: 00 ketoconazol 2021-0 No 1% e [...] risperidone 2021-0 No 1mg 3 mg tablet 5 00:00: 00 prazosin 1 1-0 No 1mg mg capsule 5-17 00:00: 00 paroxetine 2021-0 No 1mg 40 mg 5-17 tablet 00:00: 00 risperidone 2021-0 No 1mg 3 mg tablet 5- 00:00: [...] No 1mg mg tablet 324 00:00: 00 risperidone 2021-0 No 1mg 3 [...] 137 mcg 3-01 tablet 00:00: 00 levothyroxi 2020-0 No 1mcg ne 137 mcg 3-01 tablet 00:00: 00 levothyroxi 2020-0 No 1mcg ne 137 mcg 3-01 tablet 00:00: 00 levothyroxi 2020-0 No 1mcg ne 137 mcg 3-01 tablet 00:00: 00 levothyroxi 2020-0 No 1mcg ne 137 mcg 3-01 tablet 00:00: 00 levothyroxi 2020-0 No 1mcg ne 137 mcg 3-01 tablet 00:00: 00 levothyroxi 2020-0 No 1mcg ne 137 mcg 3-01 tablet 00:00: 00 UNITHROID 2020-0 Yes [facility] [place] [facility] UNITHROID 2020-0 Yes [facility] 137 mcg 3-01 [facility] of tablet 00:00: [place] [facility] UNITHROID 2020-0 Yes [facility] 137 mcg 3-01 it[facility] of tablet 00:00: [place] [facility] UNITHROID 2020-0 Yes [facility] 137 mcg 3-01 ity of tablet 00:00: [place] [facility] UNITHROID 2020-0 Yes [facility] 137 mcg 3-01 it[facility] of tablet 00:00: [place] [facility] PARoxetine 2020-0 Yes 40mg Take 40 mg U nivers 40 mg 2-12 by mouth ity of tablet 00:00: every [place] [address] morning. [facility] PARoxetine 2020-0 Yes 40mg Take 40 mg U nivers 40 mg 2-12 by mouth ity of tablet 00:00: every [place] [address] morning. [facility] PARoxetine 2020-0 Yes 40mg Take 40 mg U nivers 40 mg 2-12 by mouth ity of tablet 00:00: every [place] [address] morning. [facility] PARoxetine 2020-0 Yes 40mg Take 40 mg U nivers 40 mg 2-12 by mouth ity of tablet 00:00: every [place] [address] morning. [facility] PARoxetine 2020-0 Yes 40mg Take 40 mg U nivers 40 mg 2-12 by mouth ity of tablet 00:00: every [place] [address] morning. [facility] risperidone 2020-0 No 1mg 3 mg tablet 2-10 00:00: [...] by mouth ity of tablet 00:00: every [place] morning. Medical Branch risperiDONE 1-0 Yes 3mg Take 3 mg U nivers 3 mg tablet 2-10 by mouth ity of 00:00: daily. Medical Branch amLODIPine 1-0 Yes 10mg Take 10 mg U nivers 10 mg 2-10 by mouth ity of tablet 00:00: every [place] morning. Medical Branch hydroCHLORO 1-0 Yes 12.5mg Take 12.5 [facility] thiazide 2-10 mg by ity of 12.5 mg 00:00: mouth [place] tablet 00 every Medical morning. Branch lisinopriL 1-0 Yes 10mg Take 10 mg U nivers 10 mg 2-10 by mouth ity of tablet 00:00: every [place] morning. Medical Branch risperiDONE 1-0 Yes 3mg Take 3 mg U nivers 3 mg tablet 2-10 by mouth ity of 00:00: daily. 00 Medical Branch amLODIPine 1-0 Yes 10mg Take 10 mg U nivers 10 mg 2-10 by mouth ity of tablet 00:00: every [place] morning. Medical Branch hydroCHLORO 1-0 Yes 12.5mg Take 12.5 [facility] thiazide 2-10 mg by ity of 12.5 mg 00:00: mouth [place] tablet 00 every Medical morning. Branch lisinopriL 1-0 Yes 10mg Take 10 mg U nivers 10 mg 2-10 by mouth ity of tablet 00:00: every [place] morning. Medical Branch risperiDONE 2021-0 Yes 3mg Take 3 mg U nivers 3 mg tablet 2-10 by mouth ity of 00:00: daily. Medical Branch amLODIPine 2020-0 Yes 10mg Take 10 mg U nivers 10 mg 2-10 by mouth ity of tablet 00:00: every [place] 00 morning. Medical Branch hydroCHLORO 2020-0 Yes 12.5mg Take 12.5 [facility] thiazide 2-10 mg by ity of 12.5 mg 00:00: mouth [place] tablet 00 every Medical morning. Branch lisinopriL 2020-0 Yes 10mg Take 10 mg U nivers 10 mg 2-10 by mouth ity of tablet 00:00: every [place] 00 morning. Medical Branch risperiDONE 2020-0 Yes 3mg Take 3 mg U nivers 3 mg tablet 2-10 by mouth ity of 00:00: daily. Medical Branch amLODIPine 2020-0 Yes 10mg Take 10 mg U nivers 10 mg 2-10 by mouth ity of tablet 00:00: every [place] morning. Medical Branch hydroCHLORO 2020-0 Yes 12.5mg Take 12.5 [facility] thiazide 2-10 mg by ity of 12.5 mg 00:00: mouth [place] tablet 00 every Medical morning. Branch lisinopriL 2020-0 Yes 10mg Take 10 mg U nivers 10 mg 2-10 by mouth ity of tablet 00:00: every [place] morning. Medical Branch risperiDONE 2020-0 Yes 3mg Take 3 mg U nivers 3 mg tablet 2-10 by mouth ity of 00:00: daily. Medical Branch amLODIPine 2020-0 Yes 10mg Take 10 mg U nivers 10 mg 2-10 by mouth ity of tablet 00:00: every [place] morning. Medical Branch hydrOXYzine 2020-0 Yes TAKE 1 [facility] ers 50 mg 2-06 TABLET BY ity of tablet 00:00: MOUTH 3 [place] TIMES A Medical DAY Branch NEEDED FOR ANXIETY risperiDONE 2020-0 Yes 2mg Take 2 mg U nivers 2 mg tablet 2-06 by mouth ity of 00:00: at [place] [address] bedtime. Medical Branch hydrOXYzine 2020-0 Yes TAKE 1 [facility] ers 50 mg 2-06 TABLET BY ity of tablet 00:00: MOUTH 3 [place] TIMES A Medical DAY Branch NEEDED FOR ANXIETY risperiDONE 2020-0 Yes 2mg Take 2 mg U nivers 2 mg tablet 2-06 by mouth ity of 00:00: at [place] [address] bedtime. Medical Branch hydrOXYzine 2020-0 Yes TAKE 1 [facility] ers 50 mg 2-06 TABLET BY ity of tablet 00:00: MOUTH 3 [place] [address] TIMES A Medical DAY Branch NEEDED FOR ANXIETY risperiDONE 2020-0 Yes 2mg Take 2 mg U nivers 2 mg tablet 2-06 by mouth ity of 00:00: at [place] [address] bedtime. Medical Branch hydrOXYzine 2020-0 Yes TAKE 1 [facility] ers 50 mg 2-06 TABLET BY ity of tablet 00:00: MOUTH 3 [place] 00 TIMES A Medical DAY Branch NEEDED FOR ANXIETY risperiDONE 2020-0 Yes 2mg Take 2 mg U nivers 2 mg tablet 2-06 by mouth ity of 00:00: at [place] [address] bedtime. Medical Branch hydrOXYzine 2020-0 Yes TAKE 1 [facility] ers 50 mg 2-06 TABLET BY ity of tablet 00:00: MOUTH 3 [place] [address] TIMES A Medical DAY Branch NEEDED FOR ANXIETY risperiDONE 2020-0 Yes 2mg Take 2 mg U nivers 2 mg tablet 2-06 by mouth ity of 00:00: at [place] [address] bedtime. Medical Branch paroxetine 1-0 No 1mg 40 mg 2-03 tablet 00:00: 00 Trileptal 2021-0 No 1mg 150 mg 2-03 tablet 00:00: 00 risperidone 1-0 No 1mg 2 mg tablet 2-03 00:00: 00 hydroxyzine 2021-0 No 1mg HCl 50 mg 2-03 tablet 00:00: 00 paroxetine 2021-0 No 1mg 40 mg 2-03 tablet 00:00: 00 Trileptal 2021-0 No 1mg 150 mg 2-03 tablet 00:00: 00 risperidone 2021-0 No 1mg 2 mg tablet 2-03 00:00: 00 hydroxyzine 1-0 No 1mg HCl 50 mg 2-03 tablet [...] mouth 2 (two) Medical times Branch daily. OXcarbazepi 2021-0 Yes 150mg Take 150 U nivers ne 150 mg 2-03 mg by ity of tablet 00:00: mouth 2 (two) Medical times Branch daily. OXcarbazepi 2021-0 Yes 150mg Take 150 U nivers ne 150 mg 2-03 mg by ity of tablet 00:00: mouth 2 (two) Medical times Branch daily. OXcarbazepi 2021-0 Yes 150mg Take 150 U nivers ne 150 mg 2-03 mg by ity of tablet 00:00: mouth 2 (two) Medical times Branch daily. OXcarbazepi 1-0 Yes 150mg Take 150 U nivers ne 150 mg 2-03 mg by ity of tablet 00:00: mouth 2 (two) Medical times Branch daily. Keppra 500 1-0 No 1mg mg tablet 04-01 00:00: 00 Keppra 500 1-0 No 1mg mg tablet 04-01 00:00: 00 Keppra 500 1-0 No 1mg mg tablet 04-01 00:00: 00 Keppra 500 1-0 No 1mg mg tablet 04-01 00:00: 00 Keppra 500 1-0 No 1mg mg tablet 04-01 00:00: 00 Keppra 500 2020-0 No 1mg mg tablet 04-01 00:00: 00 Keppra 500 1-0 No 1mg mg tablet 04-01 00:00: 00 ibuprofen 2021-0 No 1mg 800 [...] by ity of tablet 00:00: mouth 3 [place] 00 (three) Medical times Branch daily. ibuprofen 2021-0 Yes 800mg Take 800 Uni vers 800 mg 1-15 mg by ity of tablet 00:00: mouth 3 [place] [address] (three) Medical times Branch daily. hydrochloro 2021-0 No 1mg thiazide 1-14 12.5 mg 00:00: tablet 00 lisinopril 2021-0 No 1mg 10 mg 1-14 tablet 00:00: 00 amlodipine 2021-0 No 1mg 10 mg 1-14 tablet 00:00: 00 paroxetine 2021-0 No 1mg 40 mg 1-14 tablet 00:00: 00 risperidone 2021-0 No 1mg 2 mg tablet 1-14 00:00: 00 hydroxyzine 1-0 No 1mg HCl 50 mg 1-14 tablet 00:00: 00 hydrochloro 1-0 No 1mg thiazide 1-14 12.5 mg 00:00: tablet 00 lisinopril 1-0 No 1mg 10 mg 1-14 tablet 00:00: 00 amlodipine 1-0 No 1mg 10 mg 1-14 tablet 00:00: 00 paroxetine 2021-0 No 1mg 40 mg 1-14 tablet 00:00: 00 risperidone 2021-0 No 1mg 2 mg tablet 1-14 00:00: 00 hydroxyzine 1-0 No 1mg HCl 50 mg 1-14 tablet 00:00: 00 hydrochloro 1-0 No 1mg thiazide 1-14 12.5 [...] TABLET BY ity o f tablet 00:00: [facility] 00 EVERY Medical MORNING Branch AND 2 TABLETS IN THE EVENING levETIRAcet 2019-03 Yes TAKE 1 Univ ers am 500 mg 2-31 TABLET BY ity o f tablet 00:00: [facility] 00 EVERY Medical MORNING Branch AND 2 TABLETS IN THE EVENING levETIRAcet 2019-03 Yes TAKE 1 Univ ers am 500 mg 2-31 TABLET BY ity o f tablet 00:00: [facility] 00 EVERY Medical MORNING Branch AND 2 TABLETS IN THE EVENING levETIRAcet 2019-03 Yes TAKE 1 Univ ers am 500 mg 2-31 TABLET BY ity o f tablet 00:00: [facility] 00 EVERY Medical MORNING Branch AND 2 [...] 2 mg tablet 2-14 00:00: 00 hydroxyzine 2019- No 1mg HCl 50 mg 2-14 tablet 00:00: 00 hydrochloro 2019- No 1mg [...] by ity of tablet 00:00: mouth 2 [place] (two) Medical times Branch daily. buPROPion 2019-03 Yes 75mg Take 75 mg Un jaye 75 mg 2-10 by mouth 2 ity of tablet 00:00: (two) [place] times Medical daily. Branch lamoTRIgine 2019-03 Yes 100mg Take 100 U nivers 100 mg 2-10 mg by ity of tablet 00:00: mouth 2 [place] (two) Medical times Branch daily. buPROPion 2019-03 Yes 75mg Take 75 mg Un j[place] 75 mg 2-10 by mouth 2 ity of tablet 00:00: (two) [place] times Medical daily. Branch lamoTRIgine 2019-03 Yes 100mg Take 100 U nivers 100 mg 2-10 mg by ity of tablet 00:00: mouth 2 [place] (two) Medical times Branch daily. buPROPion 2019- Yes 75mg Take 75 mg Un jaye 75 mg 2-10 by mouth 2 ity of tablet 00:00: (two) [place] 00 times Medical daily. Branch lamoTRIgine 2019-03 Yes 100mg Take 100 U nivers 100 mg 2-10 mg by ity of tablet 00:00: mouth 2 [place] (two) Medical times Branch daily. buPROPion 2019- Yes 75mg Take 75 mg Un jaye 75 mg 2-10 by mouth 2 ity of tablet 00:00: (two) [place] 00 times Medical daily. Branch lamoTRIgine 2019-03 Yes 100mg Take 100 U nivers 100 mg 2-10 mg by ity of tablet 00:00: mouth 2 [place] 00 (two) Medical times Branch daily. buPROPion 2019- Yes 75mg Take 75 mg Un jaye 75 mg 2-10 by mouth 2 ity of tablet 00:00: (two) [place] 00 times Medical daily. Branch paroxetine 2019- No [...] Keppra 500 2019-1 No 1mg mg tablet 027 00:00: 00 lamotrigine 2019-1 No 1mg 200 mg 0-27 tablet 00:00: 00 Keppra 500 2019-1 No 1mg mg tablet 027 00:00: 00 lamotrigine 2019-1 No 1mg 200 [...] 1mg mg tablet 0-24 00:00: 00 paroxetine 2019- No 1mg 40 mg 0-13 tablet 00:00: 00 risperidone 2019- No 1mg 1 mg tablet 0-13 00:00: 00 Paxil 10 mg 2019- No 1mg tablet 0-13 00:00: 00 hydroxyzine 2019- No 1mg HCl 50 mg 0-13 tablet 00:00: 00 paroxetine 2019- No 1mg 40 mg 0-13 tablet 00:00: 00 risperidone 2019-1 No 1mg 1 mg tablet 0-13 00:00: 00 Paxil 10 mg 2019- No 1mg tablet 0-13 00:00: 00 hydroxyzine 2019- No 1mg HCl 50 mg 0-13 tablet 00:00: 00 paroxetine 2019- No 1mg 40 mg 0-13 tablet 00:00: [...] risperidone 2020-0 No 1mg 1 mg tablet 918 00:00: 00 hydroxyzine 2020-0 No 1mg HCl 50 mg 9-18 tablet 00:00: 00 paroxetine 2020-0 No 1mg 40 mg 9-18 tablet 00:00: 00 risperidone 2020-0 No 1mg 1 mg tablet 918 00:00: 00 hydroxyzine 2020-0 No 1mg HCl 50 mg 9-18 tablet 00:00: 00 paroxetine 2020-0 No 1mg 40 mg 9-18 tablet 00:00: 00 risperidone 2020-0 No 1mg 1 mg tablet 918 00:00: 00 hydroxyzine 2020-0 No 1mg HCl 50 mg 9-18 tablet 00:00: 00 paroxetine 2020-0 No 1mg 40 mg 9-18 tablet 00:00: 00 risperidone 2020-0 No 1mg 1 mg tablet 918 00:00: 00 hydroxyzine 2020-0 No 1mg HCl 50 mg 9-18 tablet 00:00: 00 paroxetine 2020-0 No 1mg 40 mg 9-18 tablet 00:00: 00 risperidone 2020-0 No 1mg 1 mg tablet 18 00:00: 00 hydroxyzine 2020-0 No 1mg HCl 50 mg 9-18 tablet 00:00: 00 paroxetine 2020-0 No 1mg 40 mg 8-21 tablet 00:00: 00 risperidone 2020-0 No 1mg 1 mg tablet 8 00:00: 00 hydroxyzine 2020-0 No 1mg HCl 50 mg 8-21 tablet 00:00: 00 paroxetine 2020-0 No 1mg 40 mg 8-21 tablet 00:00: 00 risperidone 2020-0 No 1mg 1 mg tablet 821 00:00: 00 hydroxyzine 2020-0 No 1mg HCl 50 mg 8-21 tablet 00:00: 00 paroxetine 2020-0 No 1mg 40 mg 8-21 tablet 00:00: 00 risperidone 2020-0 No 1mg 1 mg tablet 821 00:00: 00 hydroxyzine 2020-0 No 1mg HCl [...] 200 mg 7-23 tablet 00:00: 00 hydroxyzine 2019-0 No 1mg HCl 25 mg 7-23 tablet 00:00: 00 meloxicam 2020-0 Yes [id number] 7.5mg Take 1 [facility] 7.5 mg 7-10 9107 tablet by ity of tablet 00:00: mouth once [place] 00 daily as Medical needed for Branch Pain (scale 7-10). meloxicam 2020-0 Yes [id number] 7.5mg Take 1 [facility] 7.5 mg 7-10 9107 tablet by ity of tablet 00:00: mouth once [place] 00 daily as Medical needed for Branch Pain (scale 7-10). meloxicam 2020-0 Yes [id number] 7.5mg Take 1 [facility] 7.5 mg 7-10 9107 tablet by ity of tablet 00:00: mouth once [place] 00 daily as Medical needed for Branch Pain (scale 7-10). meloxicam 2020-0 Yes [id number] 7.5mg Take 1 [facility] 7.5 mg 7-10 9107 tablet by ity of tablet 00:00: mouth once [place] 00 daily as Medical needed for Branch Pain (scale 7-10). meloxicam 2020-0 Yes [id number] 7.5mg Take 1 [facility] 7.5 mg 7-10 9107 tablet by ity of tablet 00:00: mouth once [place] 00 daily as Medical needed for Branch Pain (scale 7-10). meloxicam 2020-0 Yes [id number] 7.5mg Take 1 [facility] 7.5 mg 7-10 9107 tablet by ity of tablet 00:00: mouth once [place] 00 daily as Medical needed for Branch Pain (scale 7-10). meloxicam 2020-0 Yes [id number] 7.5mg Take 1 [facility] 7.5 mg 7-10 9107 tablet by ity of tablet 00:00: mouth once [place] 00 daily as Medical needed for Branch Pain (scale 7-10). meloxicam 2020-0 Yes [id number] 7.5mg Take 1 [facility] 7.5 mg 7-10 9107 tablet by ity of tablet 00:00: mouth once [place] 00 daily as Medical needed for Branch Pain (scale 7-10). meloxicam 2020-0 Yes [id number] 7.5mg Take 1 [facility] 7.5 mg 7-10 9107 tablet by ity of tablet 00:00: mouth once [place] 00 daily as Medical needed for Branch Pain (scale 7-10). meloxicam 2020-0 Yes [id number] 7.5mg Take 1 [facility] 7.5 mg 7-10 9107 tablet by ity of tablet 00:00: mouth once [place] 00 daily as Medical needed for Branch Pain (scale 7-10). meloxicam 2020-0 Yes [id number] 7.5mg Take 1 [facility] 7.5 mg 7-10 9107 tablet by ity of tablet 00:00: mouth once [place] 00 daily as Medical needed for Branch Pain (scale 7-10). meloxicam 2020-0 Yes [id number] 7.5mg Take 1 [facility] 7.5 mg 7-10 9107 tablet by ity of tablet 00:00: mouth once [place] 00 daily as Medical needed for Branch Pain (scale 7-10). meloxicam 2020-0 Yes [id number] 7.5mg Take 1 [facility] 7.5 mg 7-10 9107 tablet by ity of tablet 00:00: mouth once [place] 00 daily as Medical needed for Branch Pain (scale 7-10). meloxicam 2020-0 Yes [id number] 7.5mg Take 1 [facility] 7.5 mg 7-10 9107 tablet by ity of tablet 00:00: mouth once [place] 00 daily as Medical needed for Branch Pain (scale 7-10). meloxicam 2020-0 Yes [id number] 7.5mg Take 1 [facility] 7.5 mg 7-10 9107 tablet by ity of tablet 00:00: mouth once [place] 00 daily as Medical needed for Branch Pain (scale 7-10). meloxicam 2020-0 Yes [id number] 7.5mg Take 1 [facility] 7.5 mg 7-10 [...] No 1mg mg tablet 5-26 00:00: 00 paroxetine 2020-0 No 1mg 40 mg 5-26 tablet 00:00: 00 Rexulti 1 2020-0 No 1mg mg tablet 5-26 00:00: 00 paroxetine 2020-0 No 1mg 40 mg 5-26 tablet 00:00: 00 Rexulti 1 2020-0 No 1mg mg tablet 5-26 00:00: 00 paroxetine 2020-0 No 1mg 40 mg 5-26 tablet 00:00: 00 Rexulti 1 2020-0 No 1mg mg tablet 5-26 00:00: 00 paroxetine 2020-0 No 1mg 40 mg 5-26 tablet 00:00: 00 Rexulti 1 2020-0 No 1mg mg tablet 5-26 00:00: 00 paroxetine 2020-0 No 1mg 40 [...] 0-26 12.5 mg 00:00: tablet 00 amlodipine 2019-1 No 1mg 10 mg 0-26 tablet 00:00: 00 famotidine 2019-1 No 1mg 20 mg 0-26 tablet 00:00: 00 paroxetine 2019-1 No 1mg 40 mg 0-26 tablet 00:00: 00 citalopram 2019-1 No 1mg 10 mg 0-26 tablet 00:00: 00 bupropion 2018-1 No 1mg HCl 75 mg 0-26 tablet 00:00: 00 lamotrigine 2019-1 No 1mg 100 mg 0-26 tablet 00:00: 00 lamotrigine 2019-1 No 1mg 200 mg 0-26 tablet 00:00: 00 Keppra 500 2018-1 No 1mg mg tablet 0-26 00:00: 00 levothyroxi 2018-1 No 1mcg ne 137 mcg 0-26 tablet 00:00: 00 citalopram 2018- No [...] 75 mg 0-23 tablet 00:00: 00 levothyroxi 2018-1 No 1mcg ne 137 mcg 0-23 tablet [...] 75 mg 0-23 tablet 00:00: 00 levothyroxi 2018-1 No 1mcg ne 137 mcg 0-23 tablet [...] tab, PO, l tablet 20:41: Daily, # [place] 00 30 tab, 0 Refill(s) citalopram 2018-03 [...] tab, PO, l tablet 20:41: Daily, # [place] 00 30 tab, 0 Refill(s) citalopram 2018-03 Yes 10 mg = 1 Me moria 10 mg oral 0-18 tab, PO, l tablet 20:41: Daily, # [place] 00 30 tab, 0 Refill(s) citalopram 2018-03 Yes 10 mg = 1 Me moria 10 mg oral 0-18 tab, PO, l tablet 20:41: Daily, # [place] 00 30 tab, 0 Refill(s) primidone 2018-03 Yes 50 mg = 1 Mem oria 50 mg oral 0-18 tab, PO, l tablet 20:06: Bedtime, # [place] 00 30 tab, 4 Refill(s), [address] prim[place]-03 Yes 50 mg = 1 Mem oria 50 mg oral 0-18 tab, PO, l tablet 20:06: Bedtime, # [place] 00 30 tab, 4 Refill(s), Pharmacy: [address] [facility] 2018-03 Yes 50 mg = 1 Mem oria 50 mg oral 0-18 tab, PO, l tablet 20:06: Bedtime, # [place] 00 30 tab, 4 Refill(s), Pharmacy: [address] [facility] 2018-03 Yes 50 mg = 1 Mem oria 50 mg oral 0-18 tab, PO, l tablet 20:06: Bedtime, # [place] 00 30 tab, 4 Refill(s), Pharmacy: [address] [facility] 2018-03 Yes 50 mg = 1 Mem oria 50 mg oral 0-18 tab, PO, l tablet 20:06: Bedtime, # [place] 00 30 tab, 4 Refill(s), Pharmacy: [address] [facility] 2018-03 Yes 50 mg = 1 Mem oria 50 mg oral 0-18 tab, PO, l tablet 20:06: Bedtime, # [place] 00 30 tab, 4 Refill(s), Pharmacy: [address] paroxetine 2019-0 No 1mg 40 mg 9-24 [...] mg-20 00 Refill(s) mg oral tablet lisinopril 2019 Yes 20 mg = 1 Me moria 20 mg oral 8-29 tab, PO, l tablet 19:11: Daily, # [place] 00 30 tab, 0 Refill(s) hydrochloro 2019-0 Yes 1 tab, PO, Memoria thiazide-li 8-29 Daily, # l sinopril 19:11: 30 tab, 0 Herm clarice 12.5 mg-20 00 Refill(s) mg oral tablet lisinopril 0 Yes 20 mg = 1 Me moria 20 mg oral 8-29 tab, PO, l tablet 19:11: Daily, # [place] 00 30 tab, 0 Refill(s) hydrochloro 2019-0 Yes 1 tab, PO, Memoria thiazide-li 8-29 Daily, # l sinopril 19:11: 30 tab, 0 Herm clarice 12.5 mg-20 00 Refill(s) mg oral tablet lisinopril 2019-0 Yes 20 mg = 1 Me moria 20 mg oral 8-29 tab, PO, l tablet 19:11: Daily, # [place] 00 30 tab, 0 Refill(s) hydrochloro 2019-0 Yes 1 tab, PO, Mem[facility] thiazide-li 8-29 Daily, # l sinopril 19:11: 30 tab, 0 Herm clarice 12.5 mg-20 00 Refill(s) mg oral tablet lisinopril 20190 Yes 20 mg = 1 Me moria 20 mg oral 8-29 tab, PO, l tablet 19:11: Daily, # [place] 00 30 tab, 0 Refill(s) hydrochloro 2019-0 Yes 1 tab, PO, Mem[facility] thiazide-li 8-29 Daily, # l sinopril 19:11: 30 tab, 0 Herm clarice 12.5 mg-20 00 Refill(s) mg oral tablet lisinopril 0 Yes 20 mg = 1 Me moria 20 mg oral 8-29 tab, PO, l tablet 19:11: Daily, # [place] 00 30 tab, 0 Refill(s) Paxil 30 mg 0 No 1mg tablet 11-05 00:00: 00 Wellbutrin 2019-0 No 1mg XL 150 mg 11-05 24 hr 00:00: tablet, 00 extended release Abilify 2 0 No 1mg mg tablet 11-05 00:00: 00 [...] 00:00: tablet, 00 extended release Abilify 2 2018-0 No 1mg mg tablet 11-05 00:00: 00 [...] 00:00: tablet, 00 extended release Abilify 2 2018-0 No 1mg mg tablet 11-05 00:00: 00 [...] 50 mg 6-18 capsule 00:00: 00 Famotidine 0 Yes 20 mg = 1 Me moria 20 MG Oral 5-17 tab, PO, l Tablet 17:11: Daily, 0 [place] 00 Refill(s) 24 HR Yes 100 mg = 1 Memori a lamotrigine 5-17 tab, PO, l 100 MG 17:11: Daily, # [place] Extended 00 30 tab, 0 Release Refill(s) Enteric Coated Tablet [Lamictal] LaMICtal XR 0 Yes 100 mg = 1 Memoria 100 mg oral 5-17 tab, PO, l tablet, 17:11: BID, # 30 [place] extended 00 tab, 0 release Refill(s) famotidine 0 Yes 20 mg = 1 Me moria 20 mg oral 5-17 tab, PO, l tablet 17:11: Daily, 0 [place] 00 Refill(s) PARoxetine Yes 40 mg = 1 Me moria 40 mg oral 5-17 tab, PO, l tablet 17:11: Daily, # [place] 00 30 tab, 0 Refill(s) PARoxetine 2019-0 Yes 40 mg = 1 Me moria 40 mg oral 5-17 tab, PO, l tablet 17:11: Daily, # [place] 00 30 tab, 0 Refill(s) Famotidine 2018-0 Yes 20 mg = 1 Me moria 20 MG Oral 5-17 tab, PO, l Tablet 17:11: Daily, 0 [place] 00 Refill(s) 24 HR 2019-0 Yes 100 mg = 1 Memori a lamotrigine 5-17 tab, PO, l 100 MG 17:11: Daily, # [place] Extended 00 30 tab, 0 Release Refill(s) Enteric Coated Tablet [Lamictal] PARoxetine Yes 40 mg = 1 Me moria 40 mg oral 5-17 tab, PO, l tablet 17:11: Daily, # [place] 00 30 tab, 0 Refill(s) Famotidine 0 Yes 20 mg = 1 Me moria 20 MG Oral 5-17 tab, PO, l Tablet 17:11: Daily, 0 [place] 00 Refill(s) 24 HR 2018-0 Yes 100 mg = 1 Memori a lamotrigine 5-17 tab, PO, l 100 MG 17:11: Daily, # [place] Extended 00 30 tab, 0 Release Refill(s) Enteric Coated Tablet [Lamictal] LaMICtal XR 2018-0 Yes 100 mg = 1 Memoria 100 mg oral 5-17 tab, PO, l tablet, 17:11: BID, # 30 [place] extended 00 tab, 0 release Refill(s) famotidine 0 Yes 20 mg = 1 Me moria 20 mg oral 5-17 tab, PO, l tablet 17:11: Daily, 0 [place] 00 Refill(s) Famotidine 2019-0 Yes 20 mg = 1 Me moria 20 MG Oral 5-17 tab, PO, l Tablet 17:11: Daily, 0 [place] 00 Refill(s) 24 HR 2019-0 Yes 100 mg = 1 Memori a lamotrigine 5-17 tab, PO, l 100 MG 17:11: Daily, # [place] Extended 00 30 tab, 0 Release Refill(s) Enteric Coated Tablet [Lamictal] LaMICtal XR 2019-0 Yes 100 mg = 1 Memoria 100 mg oral 5-17 tab, PO, l tablet, 17:11: BID, # 30 [place] extended 00 tab, 0 release Refill(s) famotidine 2019-0 Yes 20 mg = 1 Me moria 20 mg oral 5-17 tab, PO, l tablet 17:11: Daily, 0 [place] 00 Refill(s) PARoxetine 2019-0 Yes 40 mg = 1 Me moria 40 mg oral 5-17 tab, PO, l tablet 17:11: Daily, # [place] 00 30 tab, 0 Refill(s) Famotidine 2019-0 Yes 20 mg = 1 Me moria 20 MG Oral 5-17 tab, PO, l Tablet 17:11: Daily, 0 [place] 00 Refill(s) 24 HR 2019-0 Yes 100 mg = 1 Memori a lamotrigine 5-17 tab, PO, l 100 MG 17:11: Daily, # [place] Extended 00 30 tab, 0 Release Refill(s) Enteric Coated Tablet [Lamictal] LaMICtal XR 2019-0 Yes 100 mg = 1 Mem[facility] 100 mg oral 5-17 tab, PO, l tablet, 17:11: BID, # 30 [place] extended 00 tab, 0 release Refill(s) famotidine 2019-0 Yes 20 mg = 1 Me moria 20 mg oral 5-17 tab, PO, l tablet 17:11: Daily, 0 [place] 00 Refill(s) PARoxetine 2019-0 Yes 40 mg = 1 Me moria 40 mg oral 5-17 tab, PO, l tablet 17:11: Daily, # [place] 00 30 tab, 0 Refill(s) Famotidine 2019-0 Yes 20 mg = 1 Me moria 20 MG Oral 5-17 tab, PO, l Tablet 17:11: Daily, 0 [place] 00 Refill(s) 24 HR 2019-0 Yes 100 mg = 1 Memori a lamotrigine 5-17 tab, PO, l 100 MG 17:11: Daily, # [place] Extended 00 30 tab, 0 Release Refill(s) Enteric Coated Tablet [Lamictal] LaMICtal XR 2019-0 Yes 100 mg = 1 Memoria 100 mg oral 5-17 tab, PO, l tablet, 17:11: BID, # 30 [place] extended 00 tab, 0 release Refill(s) famotidine 2019-0 Yes 20 mg = 1 Me moria 20 mg oral 5-17 tab, PO, l tablet 17:11: Daily, 0 [place] 00 Refill(s) PARoxetine Yes 40 mg = 1 Me moria 40 mg oral 5-17 tab, PO, l tablet 17:11: Daily, # [place] 00 30 tab, 0 Refill(s) levothyroxi Yes 150 Memori a ne 150 mcg 5-17 microgram l (0.15 mg) 16:28: = 1 tab, Herm clarice oral tablet 00 PO, Daily, # 30 tab, 0 Refill(s) 24 HR Yes 150 mg = 1 Memori a Bupropion 5-17 tab, PO, l Hydrochlori 16:28: Q24H, # 30 [place] de 150 MG 00 tab, 0 Extended [...] [place] 00 tab, 0 Refill(s) levETIRAcet 0 Yes 1,000 mg = Memoria am 500 mg 5-17 2 tab, PO, l oral tablet 16:28: BID, 0 Herm clarice 00 Refill(s) lamoTRIgine 2019- Yes 200 mg = 1 Mem[facility] 200 mg oral 5-17 tab, PO, l tablet 16:28: BID, # 180 [place] 00 tab, 0 Refill(s) Levetiracet 2019-0 Yes See Memori a am 500 MG 5-17 Instructio l Oral Tablet 16:28: ns, 1 tab H ermann 00 PO QAM, 2 tabs PO QPM, 0 Refill(s) 24 [place] 2019-0 Yes 150 mg = 1 Memori a Bupropion 5-17 tab, PO, l Hydrochlori 16:28: Q24H, # 30 [place] de 150 MG 00 tab, 0 Extended Refill(s) Release Tablet lamotrigine Yes 200 mg = 1 Memoria 200 MG Oral 5-17 tab, PO, l Tablet 16:28: BID, # 180 [place] 00 tab, 0 Refill(s) amLODIPine 2019 Yes 5 mg = 1 Mem oria 5 mg oral 5-17 tab, PO, l tablet 16:28: Daily, # [place] 00 90 tab, 0 Refill(s) levETIRAcet 2018- Yes 1,000 mg = Memoria am 500 mg 5-17 2 tab, PO, l oral tablet 16:28: BID, 0 Herm clarice 00 Refill(s) lamoTRIgine 2019- Yes 200 mg = 1 Mem[facility] 200 mg oral 5-17 tab, PO, l tablet 16:28: BID, # 180 [place] 00 tab, 0 Refill(s) levothyroxi 2019-0 Yes 150 Memori a ne 150 mcg 5-17 microgram l (0.15 mg) 16:28: = 1 tab, Herm clarice oral tablet 00 PO, Daily, # 30 tab, 0 Refill(s) Levetiracet 2018-0 Yes See Memori a am 500 MG 5-17 Instructio l Oral Tablet 16:28: ns, 1 tab H [place] 00 PO QAM, 2 tabs PO QPM, 0 Refill(s) 24 HR 2018- Yes 150 mg = 1 Memori a Bupropion 5-17 tab, PO, l Hydrochlori 16:28: Q24H, # 30 [place] de 150 MG 00 tab, 0 Extended Refill(s) Release Tablet lamotrigine Yes 200 mg = 1 Memoria 200 MG Oral 5-17 tab, PO, l Tablet 16:28: BID, # 180 [place] 00 tab, 0 Refill(s) amLODIPine 2019 Yes 5 mg = 1 Mem oria 5 mg oral 5-17 tab, PO, l tablet 16:28: Daily, # [place] 00 90 tab, 0 Refill(s) levETIRAcet 2018- Yes 1,000 mg = Memoria am 500 mg 5-17 2 tab, PO, l oral tablet 16:28: BID, 0 Herm clarice 00 Refill(s) lamoTRIgine Yes 200 mg = 1 Memoria 200 mg oral 5-17 tab, PO, l tablet 16:28: BID, # 180 [place] 00 tab, 0 Refill(s) levothyroxi Yes 150 Memori a ne 150 mcg 5-17 microgram l (0.15 mg) 16:28: = 1 tab, Herm clarice oral tablet 00 PO, Daily, # 30 tab, 0 Refill(s) Levetiracet Yes See Memori a am 500 MG 5-17 Instructio l Oral Tablet 16:28: ns, 1 tab H [place] 00 PO QAM, 2 tabs PO QPM, 0 Refill(s) 24 HR Yes 150 mg = 1 Memori a Bupropion 5-17 tab, PO, l Hydrochlori 16:28: Q24H, # 30 [place] de 150 MG 00 tab, 0 Extended Refill(s) Release Tablet lamotrigine Yes 200 mg = 1 Memoria 200 MG Oral 5-17 tab, PO, l Tablet 16:28: BID, # 180 Evonne nn 00 tab, 0 Refill(s) amLODIPine 2019 Yes 5 mg = 1 Mem oria 5 mg oral 5-17 tab, PO, l tablet 16:28: Daily, # [place] 00 90 tab, 0 Refill(s) levETIRAcet 2018- Yes 1,000 mg = Memoria am 500 mg 5-17 2 tab, PO, l oral tablet 16:28: BID, 0 Herm clarice 00 Refill(s) lamoTRIgine Yes 200 mg = 1 Memoria 200 mg oral 5-17 tab, PO, l tablet 16:28: BID, # 180 Evonne nn 00 tab, 0 Refill(s) levothyroxi 2018-0 Yes 150 Memori a ne 150 mcg 5-17 microgram l (0.15 mg) 16:28: = 1 tab, Herm clarice oral tablet 00 PO, Daily, # 30 tab, 0 Refill(s) Levetiracet 0 Yes See Memori a am 500 MG 5-17 Instructio l Oral Tablet 16:28: ns, 1 tab H ermann 00 PO QAM, 2 tabs PO QPM, 0 Refill(s) 24 HR 0 Yes 150 mg = 1 Memori a [...] tab, PO, l tablet 16:28: Daily, # [place] 00 90 tab, 0 Refill(s) levETIRAcet 0 Yes 1,000 mg = Memoria am 500 mg 5-17 2 tab, PO, l oral tablet 16:28: BID, 0 Herm clarice 00 Refill(s) lamoTRIgine 20190 Yes 200 mg = 1 Memoria 200 mg oral 5-17 tab, PO, l tablet 16:28: BID, # 180 Ev[place] nn 00 tab, 0 Refill(s) levothyroxi 2018-0 Yes 150 Memori a ne 150 mcg 5-17 microgram l (0.15 mg) 16:28: = 1 tab, Herm clarice oral tablet 00 PO, Daily, # 30 tab, 0 Refill(s) amLODIPine 2018-0 Yes 5 mg = 1 Mem oria 5 mg oral 5-17 tab, PO, l tablet 16:28: Daily, # [place] 00 90 tab, 0 Refill(s) Levetiracet 0 Yes See Memori a am 500 MG 5-17 Instructio l Oral Tablet 16:28: ns, 1 tab H ermann 00 PO QAM, 2 tabs PO QPM, 0 Refill(s) famotidine 2019-0 No 1mg 20 [...] tablet 4-16 00:00: 00 Paxil 10 mg 2018-0 No 1mg tablet 4-16 00:00: 00 hydroxyzine 2018-0 No 1mg HCl 25 mg 4-16 tablet 00:00: 00 Wellbutrin 2017-1 No 1mg XL 150 mg 2-27 24 hr 00:00: tablet, 00 extended release lisinopril 2017- No 1mg 20 2-27 mg-hydrochl 00:00: orothiazide 00 12.5 mg tablet Paxil 40 mg 2017- No 1mg tablet 2-27 00:00: 00 Wellbutrin 2017-1 No 1mg XL 150 mg 2-27 24 hr 00:00: tablet, 00 extended release lisinopril 2017- No 1mg 20 2-27 mg-hydrochl 00:00: orothiazide 00 12.5 mg tablet Paxil 40 mg 2017- No 1mg tablet 2-27 00:00: 00 amlodipine 2017- No 1mg 5 mg tablet 2-27 00:00: 00 Pepcid 20 2017- No 1mg mg tablet 2-27 00:00: 00 Pepcid 20 2017- No 1mg mg tablet 2-27 00:00: 00 amoxicillin 2017- No 1mg 875 mg 2-27 tablet 00:00: 00 Synthroid 2017- No 1mcg 150 mcg 2-27 tablet 00:00: 00 Synthroid 2018- No 1mcg 150 mcg 2-27 tablet 00:00: [...] 1mg mg tablet 2-27 00:00: 00 amoxicillin 2018- No 1mg 875 mg 2-27 tablet 00:00: 00 Synthroid 2018- No 1mcg 150 mcg 2-27 tablet 00:00: [...] hr 00:00: tablet, 00 extended release Wellbutrin 2017-03 No 1mg XL 150 mg [...] 875 mg 2-27 tablet 00:00: 00 Synthroid 2017-03 No 1mcg 150 mcg 2-27 tablet 00:00: 00 Synthroid 2017-03 No 1mcg 150 mcg 2-27 tablet 00:00: 00 lisinopril 2017-03 No 1mg 20 2-27 mg-hydrochl [...] 150 mcg 2-27 tablet 00:00: 00 Synthroid 2017-03 No 1mcg 150 mcg 2-27 tablet 00:00: [...] 2018-1 No 1mg tablet 2- 00:00: 00 amlodipine [...] Wellbutrin 2018-0 No 1mg XL 150 mg 913 24 hr 00:00: tablet, 00 extended release [...] Pepcid 20 2017-0 No 1mg mg tablet 5- 00:00: 00 [...] Pepcid 20 2017-0 No 1mg mg tablet - 00:00: 00 Synthroid 2018-0 No 1mcg 150 [...] Wellbutrin 2018-0 No 1mg XL 150 mg 531 24 hr 00:00: tablet, 00 extended release [...] Immunizations Ordered Filled Immunization Date Status Comments [facility] Immunization Name Name SARS-COV-2 COVID-19 2021-03-11 Completed Unive rsity of MODERNA VACCINE 00:00:00 [facility] Moderna COVID-19 2020-05-22 Completed Vaccine 00:00:00 Moderna COVID-19 2020-05-22 Completed Vaccine 00:00:00 Moderna COVID-19 2020-05-22 Completed Vaccine 00:00:00 Moderna COVID-19 2020-05-22 Completed Vaccine 00:00:00 Moderna COVID-19 2020-05-22 Completed Vaccine 00:00:00 Moderna COVID-19 2020-05-22 Completed Vaccine 00:00:00 Moderna COVID-19 2020-05-22 Completed Vaccine 00:00:00 SARS-COV-2 COVID-19 2020-05-17 Completed Unive rsity of MODERNA VACCINE 00:00:[address] [facility] SARS-COV-2 COVID-19 2020-05-17 Completed Unive rsity of MODERNA VACCINE 00:00:00 [facility] SARS-COV-2 COVID-19 2020-05-17 Completed Unive rsity of MODERNA VACCINE 00:00:00 [facility] SARS-COV-2 COVID-19 2020-04-23 Completed Unive rsity of MODERNA VACCINE 00:00:00 [facility] SARS-COV-2 COVID-19 2020-04-23 Completed Unive rsity of MODERNA VACCINE 00:00:[address] [facility] SARS-COV-2 COVID-19 2020-04-23 Completed Unive rsity of MODERNA VACCINE 00:00:[address] [facility] Moderna COVID-19 2020-04-16 Completed Vaccine 00:00:00 Moderna [...] 17:27:00 108 mm[Hg] Univer sity of pressure [facility] Diastolic blood 2020-05-11 17:27:00 77 mm[Hg] Unive rsity of [facility] Heart rate 2020-05-11 17:27:00 80 /min [facility] Body temperature 2019-09-19 18:09:[facility] 2019-09-19 18:09:00 86.183 kg [facility] Systolic (mm Hg) 2022-01-31 14:13:00 Jose Daniel irasemal [place] Diastolic (mm Hg) 2022-01-31 14:13:00 Mem orial [place] Heart Rate 2022-01-31 14:13:00 [facility] [place] Height 2022-01-31 14:13:00 5 [ft_i] [facility] [place] Weight 2022-01-31 14:13:00 [facility] [place] BMI Calculated 2022-01-31 14:13:00 Funmilayoori al [place] BP Systolic 2022-01-19 08:56:00 102 mm[Hg] BP Diastolic 2022-01-19 08:56:00 68 mm[Hg] Weight Measured 2022-01-19 08:56:00 161.80 pounds Height Measured 2022-01-19 08:56:00 63.00 inches Body Temperature 2022-01-19 08:56:00 98.30 degrees Heart Rate 2022-01-19 08:56:00 65.00 /min Respiratory Rate 2022-01-19 08:56:00 18.00 /min Systolic (mm Hg) 2022-01-11 18:18:00 Jose Daniel kc [place] Diastolic (mm Hg) 2022-01-11 18:18:00 [facility] orial [place] Heart Rate 2022-01-11 18:18:00 [facility] [place] Height 2022-01-11 18:18:00 5 [ft_i] [facility] [place] Weight 2022-01-11 18:18:00 [facility] [place] BMI Calculated 2022-01-11 18:18:00 Swati al [place] BP Systolic 2021-12-19 17:05:00 BP Diastolic 2021-12-19 [...] 2021-11-29 09:10:00 Heart Rate 2021-11-24 16:23:00 [facility] [place] Respitory Rate 2021-11-24 16:23:00 Memori al [place] Height 2021-11-24 16:23:00 154.94 cm [facility] [place] Weight 2021-11-24 16:23:00 [facility] [place] BMI Calculated 2021-11-24 16:23:00 Memori [facility] [place] Systolic (mm Hg) 2021-11-24 16:23:00 Jose Daniel rial [place] Diastolic (mm Hg) 2021-11-24 16:23:00 Mem [...] al [place] Height 2021-01-27 15:19:00 157.48 cm [facility] [place] Weight 2021-01-27 15:19:00 [facility] [place] BMI Calculated 2021-01-27 15:19:00 Memori al [place] Systolic (mm Hg) 2020-12-16 15:25:00 Jose Daniel rial [place] Diastolic (mm Hg) 2020-12-16 15:25:00 Mem orial [place] Heart Rate 2020-12-16 15:25:00 [facility] [place] Respitory Rate 2020-12-16 15:25:00 Memori al [place] Height 2020-12-16 15:25:00 160.02 cm [facility] [place] Weight 2020-12-16 15:25:00 [facility] [place] BMI Calculated 2020-12-16 15:25:00 Memori al [place] BP Systolic 2020-10-26 13:29:00 136 mm[Hg] BP [...] Systolic (mm Hg) 2018-12-27 19:37:00 Jose Daniel rial [place] Diastolic (mm Hg) 2018-12-27 19:37:00 Mem orial [place] Heart Rate 2018-12-27 19:37:00 [facility] [place] Respitory Rate 2018-12-27 19:37:00 Memori al [place] Height 2018-12-27 19:37:00 160.02 cm [facility] [place] Weight 2018-12-27 19:37:00 [facility] [place] BMI Calculated 2018-12-27 19:37:00 Memori al [place] Weight 2018-07-26 16:21:00 [facility] [place] Height 2018-07-26 16:21:00 157.48 cm [facility] [place] BMI Calculated 2018-07-26 16:21:00 Memori al [place] Heart Rate 2018-07-26 16:21:00 [facility] [place] Respitory Rate 2018-07-26 16:21:00 Memori al [place] Systolic (mm Hg) 2018-07-26 16:21:00 Jose Daniel rial [place] Diastolic (mm Hg) 2018-07-26 16:21:00 Mem orial [place] Procedures Procedure Date / Time Performing Clinician Source Performed REFERRAL- 2020-09-06 05:01:00 Doctor Unassigned, No Univer [facility] REQUEST/RESPONSE Name [facility] EXTERNAL PROVIDER - ADC 2020-05-10 06:01:00 Doctor Unassigned, N o [facility] REFERRAL Name [facility] PATIENT QUESTIONNAIRE 2019-09-28 05:01:00 Doctor Unassigned, No [facility] XR SHOULDER 2+ VW LEFT 2019-09-19 18:04:00 Jing [facility] Aneurysm clipping [facility] [place] nn Plan of Care Planned Activity Planned Date Details Comments Source Goal Plan of Care Note [code = 76586-0] Goal Plan of Care Note [code = 92834-1] Goal Plan of Care Note [code = 42896-2] Goal Plan of Care Note [code = 59804-6] Goal Plan of Care Note [code = 98653-4] Goal Plan of Care Note [code = 75251-7] Goal Plan of Care Note [code = 28096-6] Goal Plan of Care Note [code = 98724-6] Goal Plan of Care Note [code = 02021-0] Goal Plan of Care Note [code = 71452-4] Goal Plan of Care Note [code = 00335-9] Goal Plan of Care Note [code = 60293-5] Goal Plan of Care Note [code = 60211-1] Goal Plan of Care Note [code = 88970-6] Goal Plan of Care Note [code = 61830-8] Goal Plan of Care Note [code = 30739-3] Goal Plan of Care Note [code = 37790-4] Goal Plan of Care Note [code = 04989-3] Goal Plan of Care Note [code = 93106-3] Goal Plan of Care Note [code = 32398-9] Goal Plan of Care Note [code = 69979-9] Goal Plan of Care Note [code = 93221-8] Goal Plan of Care Note [code = 71521-2] Goal Plan of Care Note [code = 72607-7] Goal Plan of Care Note [code = 53331-7] Goal Plan of Care Note [code = 57243-5] Goal Plan of Care Note [code = 12621-8] Goal Plan of Care Note [code = 13988-8] Goal Plan of Care Note [code = 30892-4] Goal Plan of Care Note [code = 31469-1] Goal Plan of Care Note [code = 04323-3] Goal Plan of Care Note [code = 62837-1] Goal Plan of Care Note [code = 58593-6] Goal Plan of Care Note [code = 46885-8] Goal Plan of Care Note [code = 86760-5] Goal Plan of Care Note [code = 93868-8] Goal Plan of Care Note [code = 54843-7] Goal Plan of Care Note [code = 01411-2] Goal Plan of Care Note [code = 69746-6] Goal Plan of Care Note [code = 62809-2] Goal Plan of Care Note [code = 98466-1] Goal Plan of Care Note [code = 53318-6] Goal Plan of Care Note [code = 21313-5] Goal Plan of Care Note [code = 47388-8] Goal Plan of Care Note [code = 13734-5] Goal Plan of Care Note [code = 20526-0] Goal Plan of Care Note [code = 23448-8] Goal Plan of Care Note [code = 87929-0] Goal Plan of Care Note [code = 35642-0] Goal Plan of Care Note [code = 63935-2] Goal Plan of Care Note [code = 50133-9] Goal Plan of Care Note [code = 64656-2] Goal Plan of Care Note [code = 61098-2] Goal Plan of Care Note [code = 67381-4] Goal Plan of Care Note [code = 93897-6] Goal Plan of Care Note [code = 66315-8] Goal Plan of Care Note [code = 77604-5] Goal Plan of Care Note [code = 32742-3] Goal Plan of Care Note [code = 89214-7] Goal Plan of Care Note [code = 18886-8] Goal Plan of Care Note [code = 67093-8] Goal Plan of Care Note [code = 47338-8] Goal Plan of Care Note [code = 46318-3] Goal Plan of Care Note [code = 29122-5] Goal Plan of Care Note [code = 89597-7] Goal Plan of Care Note [code = 67927-1] Goal Plan of Care Note [code = 56860-3] Goal Plan of Care Note [code = 45080-5] Goal Plan of Care Note [code = 24690-7] Goal Plan of Care Note [code = 46313-8] Goal Plan of Care Note [code = 73617-0] Goal Plan of Care Note [code = 55008-3] Goal Plan of Care Note [code = 56723-0] Goal Plan of Care Note [code = 24834-6] Goal Plan of Care Note [code = 70408-9] Goal Plan of Care Note [code = 19484-9] Goal Plan of Care Note [code = 80690-4] Goal Plan of Care Note [code = 21254-6] Goal Plan of Care Note [code = 49951-9] Goal Plan of Care Note [code = 57140-4] Goal Plan of Care Note [code = 11189-3] Goal Plan of Care Note [code = 86730-3] Goal Plan of Care Note [code = 12151-8] Goal Plan of Care Note [code = 49487-8] Goal Plan of Care Note [code = 41892-8] Goal Plan of Care Note [code = 13529-5] Goal Plan of Care Note [code = 72946-2] Goal Plan of Care Note [code = 24449-6] Goal Plan of Care Note [code = 68472-2] Goal Plan of Care Note [code = 81351-2] Goal Plan of Care Note [code = 81978-1] Goal Plan of Care Note [code = 27974-3] Goal Plan of Care Note [code = 04848-2] Goal Plan of Care Note [code = 22780-9] Goal Plan of Care Note [code = 20878-9] Goal Plan of Care Note [code = 24347-5] Goal Plan of Care Note [code = 30309-2] Goal Plan of Care Note [code = 25706-5] Goal Plan of Care Note [code = 46656-4] Goal Plan of Care Note [code = 33689-2] Goal Plan of Care Note [code = 27469-4] Goal Plan of Care Note [code = 40968-2] Goal Plan of Care Note [code = 60472-8] Goal Plan of Care Note [code = 71221-7] Goal Plan of Care Note [code = 58932-8] Goal Plan of Care Note [code = 39334-7] Goal Plan of Care Note [code = 89240-5] Goal Plan of Care Note [code = 61430-7] Goal Plan of Care Note [code = 85056-9] Goal Plan of Care Note [code = 10230-3] Goal Plan of Care Note [code = 20914-0] Goal Plan of Care Note [code = 14003-0] Goal Plan of Care Note [code = 02816-2] Goal Plan of Care Note [code = 03645-8] Goal Plan of Care Note [code = 77225-4] Goal Plan of Care Note [code = 89807-2] Goal Plan of Care Note [code = 71699-5] Goal Plan of Care Note [code = 65556-4] Goal Plan of Care Note [code = 05241-8] Goal Plan of Care Note [code = 08708-7] Goal Plan of Care Note [code = 04455-0] Goal Plan of Care Note [code = 75959-7] Goal Plan of Care Note [code = 75384-6] Goal Plan of Care Note [code = 92019-3] Goal Plan of Care Note [code = 43742-9] Goal Plan of Care Note [code = 81421-9] Goal Plan of Care Note [code = 57174-9] Goal Plan of Care Note [code = 93455-6] Goal Plan of Care Note [code = 72835-0] Goal Plan of Care Note [code = 89592-3] Goal Plan of Care Note [code = 15299-7] Goal Plan of Care Note [code = 36504-3] Goal Plan of Care Note [code = 14237-7] Goal Plan of Care Note [code = 29789-0] Goal Plan of Care Note [code = 31607-4] Goal Plan of Care Note [code = 84774-9] Goal Plan of Care Note [code = 73584-9] Goal Plan of Care Note [code = 08739-2] Goal Plan of Care Note [code = 30784-9] Goal Plan of Care Note [code = 41754-0] Goal Plan of Care Note [code = 00912-4] Goal Plan of Care Note [code = 65878-9] Goal Plan of Care Note [code = 23884-6] Goal Plan of Care Note [code = 78924-4] Goal Plan of Care Note [code = 86796-5] Goal Plan of Care Note [code = 49527-5] Goal Plan of Care Note [code = 02511-7] Goal Plan of Care Note [code = 43695-8] Goal Plan of Care Note [code = 54488-4] Goal Plan of Care Note [code = 34615-6] Goal Plan of Care Note [code = 71922-2] Goal Plan of Care Note [code = 10374-5] Goal Plan of Care Note [code = 43600-6] Goal Plan of Care Note [code = 05673-5] Goal Plan of Care Note [code = 06923-2] Goal Plan of Care Note [code = 92277-0] Goal Plan of Care Note [code = 13122-7] Goal Plan of Care Note [code = 64231-6] Goal Plan of Care Note [code = 58962-7] Goal Plan of Care Note [code = 91408-2] Goal Plan of Care Note [code = 67648-2] Goal Plan of Care Note [code = 85579-1] Goal Plan of Care Note [code = 50384-6] Goal Plan of Care Note [code = 30223-1] Goal Plan of Care Note [code = 78529-2] Goal Plan of Care Note [code = 86121-6] Goal Plan of Care Note [code = 31327-4] Goal Plan of Care Note [code = 71934-8] Goal Plan of Care Note [code = 43091-8] Goal Plan of Care Note [code = 15634-4] Goal Plan of Care Note [code = 55008-6] Goal Plan of Care Note [code = 29841-6] Goal Plan of Care Note [code = 55844-8] Goal Plan of Care Note [code = 59775-8] Goal Plan of Care Note [code = 60633-1] Goal Plan of Care Note [code = 12400-6] Goal Plan of Care Note [code = 95664-3] Goal Plan of Care Note [code = 13574-1] Goal Plan of Care Note [code = 68664-2] Goal Plan of Care Note [code = 19329-8] Goal Plan of Care Note [code = 04147-6] Goal Plan of Care Note [code = 13069-9] Goal Plan of Care Note [code = 86491-9] Goal Plan of Care Note [code = 21262-5] Goal Plan of Care Note [code = 61659-2] Goal Plan of Care Note [code = 74171-1] Goal Plan of Care Note [code = 97645-0] Goal Plan of Care Note [code = 81750-9] Goal Plan of Care Note [code = 64720-5] Goal Plan of Care Note [code = 93734-3] Goal Plan of Care Note [code = 36867-8] Goal Plan of Care Note [code = 60061-8] Goal Plan of Care Note [code = 15299-4] Goal Plan of Care Note [code = 07148-3] Goal Plan of Care Note [code = 80043-5] Goal Plan of Care Note [code = 47250-6] Goal Plan of Care Note [code = 35084-6] Goal Plan of Care Note [code = 38829-9] Goal Plan of Care Note [code = 39599-2] Goal Plan of Care Note [code = 34928-6] Goal Plan of Care Note [code = 70932-9] Goal Plan of Care Note [code = 10329-1] Goal Plan of Care Note [code = 82236-7] Goal Plan of Care Note [code = 32803-0] Goal Plan of Care Note [code = 47207-5] Goal Plan of Care Note [code = 26370-3] Goal Plan of Care Note [code = 68988-9] Goal Plan of Care Note [code = 96257-7] Goal Plan of Care Note [code = 23337-0] Goal Plan of Care Note [code = 94286-7] Goal Plan of Care Note [code = 42896-4] Goal Plan of Care Note [code = 07641-9] Goal Plan of Care Note [code = 32218-5] Goal Plan of Care Note [code = 56827-2] Goal Plan of Care Note [code = 23775-9] Goal Plan of Care Note [code = 20052-5] Goal Plan of Care Note [code = 51635-3] Goal Plan of Care Note [code = 46148-3] Goal Plan of Care Note [code = 75336-8] Goal Plan of Care Note [code = 99493-9] Goal Plan of Care Note [code = 62905-0] Goal Plan of Care Note [code = 83319-9] Goal Plan of Care Note [code = 80283-3] Goal Plan of Care Note [code = 91182-9] Goal Plan of Care Note [code = 71398-5] Goal Plan of Care Note [code = 31533-2] Goal Plan of Care Note [code = 27621-7] Goal Plan of Care Note [code = 81181-8] Goal Plan of Care Note [code = 65998-5] Goal Plan of Care Note [code = 44508-7] Goal Plan of Care Note [code = 99168-5] Goal Plan of Care Note [code = 68011-8] Goal Plan of Care Note [code = 93565-0] Goal Plan of Care Note [code = 19246-6] Goal Plan of Care Note [code = 22737-1] Goal Plan of Care Note [code = 43527-9] Goal Plan of Care Note [code = 92371-6] Goal Plan of Care Note [code = 67493-5] Goal Plan of Care Note [code = 09925-8] Goal Plan of Care Note [code = 21009-2] Goal Plan of Care Note [code = 63447-8] Goal Plan of Care Note [code = 77313-2] Goal Plan of Care Note [code = 56100-4] Goal Plan of Care Note [code = 29163-0] Goal Plan of Care Note [code = 54994-6] Goal Plan of Care Note [code = 71699-7] Goal Plan of Care Note [code = 66849-9] Goal Plan of Care Note [code = 01912-9] Goal Plan of Care Note [code = 23433-6] Goal Plan of Care Note [code = 16373-4] Goal Plan of Care Note [code = 97572-1] Goal Plan of Care Note [code = 62265-9] Goal Plan of Care Note [code = 99462-8] Goal Plan of Care Note [code = 18946-4] Goal Plan of Care Note [code = 82808-7] Goal Plan of Care Note [code = 49782-4] Goal Plan of Care Note [code = 73947-2] Goal Plan of Care Note [code = 89511-4] Goal Plan of Care Note [code = 23214-2] Goal Plan of Care Note [code = 43832-1] Goal Plan of Care Note [code = 63147-5] Goal Plan of Care Note [code = 38089-2] Goal Plan of Care Note [code = 53588-2] Goal Plan of Care Note [code = 24152-5] Goal Plan of Care Note [code = 21619-7] Goal Plan of Care Note [code = 77881-3] Goal Plan of Care Note [code = 68582-4] Goal Plan of Care Note [code = 09717-2] Goal Plan of Care Note [code = 53464-5] Goal Plan of Care Note [code = 19783-0] Goal Plan of Care Note [code = 17195-8] Goal Plan of Care Note [code = 00678-5] Goal Plan of Care Note [code = 83433-6] Goal Plan of Care Note [code = 88891-2] Goal Plan of Care Note [code = 68718-9] Goal Plan of Care Note [code = 28146-6] Goal Plan of Care Note [code = 25701-3] Goal Plan of Care Note [code = 57313-6] Goal Plan of Care Note [code = 20615-8] Goal Plan of Care Note [code = 88911-3] Goal Plan of Care Note [code = 09596-5] Goal Plan of Care Note [code = 17799-7] Goal Plan of Care Note [code = 47702-2] Goal Plan of Care Note [code = 91013-1] Goal Plan of Care Note [code = 68664-1] Goal Plan of Care Note [code = 12342-7] Goal Plan of Care Note [code = 52079-4] Goal Plan of Care Note [code = 71347-1] Goal Plan of Care Note [code = 63255-7] Goal Plan of Care Note [code = 87539-3] Goal Plan of Care Note [code = 83831-9] Goal Plan of Care Note [code = 01324-7] Goal Plan of Care Note [code = 22644-5] Goal Plan of Care Note [code = 14590-1] Goal Plan of Care Note [code = 79489-0] Goal Plan of Care Note [code = 90334-5] Goal Plan of Care Note [code = 44971-3] Goal Plan of Care Note [code = 91378-4] Goal Plan of Care Note [code = 61389-1] Goal Plan of Care Note [code = 15134-7] Goal Plan of Care Note [code = 42775-0] Goal Plan of Care Note [code = 61747-5] Goal Plan of Care Note [code = 10863-0] Goal Plan of Care Note [code = 23750-8] Goal Plan of Care Note [code = 59775-6] Goal Plan of Care Note [code = 40721-9] Goal Plan of Care Note [code = 85187-4] Goal Plan of Care Note [code = 45987-3] Goal Plan of Care Note [code = 44398-4] Goal Plan of Care Note [code = 91078-5] Goal Plan of Care Note [code = 24928-9] Goal Plan of Care Note [code = 88097-6] Goal Plan of Care Note [code = 20103-3] Goal Plan of Care Note [code = 31827-6] Goal Plan of Care Note [code = 08467-2] Goal Plan of Care Note [code = 72829-2] Goal Plan of Care Note [code = 94923-7] Goal Plan of Care Note [code = 73582-4] Goal Plan of Care Note [code = 56535-8] Goal Plan of Care Note [code = 69161-7] Goal Plan of Care Note [code = 63233-1] Goal Plan of Care Note [code = 77373-3] Goal Plan of Care Note [code = 17818-1] Goal Plan of Care Note [code = 28068-9] Goal Plan of Care Note [code = 57632-1] Goal Plan of Care Note [code = 98186-2] Goal Plan of Care Note [code = 72931-7] Goal Plan of Care Note [code = 24305-4] Goal Plan of Care Note [code = 53224-1] Goal Plan of Care Note [code = 09823-8] Goal Plan of Care Note [code = 97340-8] Goal Plan of Care Note [code = 92087-3] Goal Plan of Care Note [code = 98981-9] Goal Plan of Care Note [code = 75995-5] Goal Plan of Care Note [code = 61438-2] Goal Plan of Care Note [code = 72657-6] Goal Plan of Care Note [code = 05932-7] Goal Plan of Care Note [code = 26918-5] Goal Plan of Care Note [code = 42897-8] Goal Plan of Care Note [code = 31202-5] Goal Plan of Care Note [code = 29830-6] Goal Plan of Care Note [code = 08083-6] Goal Plan of Care Note [code = 65353-4] Goal Plan of Care Note [code = 34679-8] Goal Plan of Care Note [code = 26311-4] Encounters Start End Encounter Admission Attending Care Care Encounter Source Date/Time Date/Time Type Type Clinicians Facility Department ID 2022-05-03 2022-05-03 Ambulatory [facility] MNA [id number] [facility] 15:00:00 15:00:00 Pre-Reg Neurology 15 l Lyndsey Newman 2022-05-03 2022-05-03 Outpatient [facility] [id number] Memoria 09:00:00 09:00:00 15 jeison Newman 2022-05-03 2022-05-03 Outpatient [facility]IE MHIE [id number] [facility]oria 09:00:00 09:00:00 15 jeison Newman 2022-05-03 2022-05-03 [id number] 09:00:00 09:00:00 Markos 15 [place] 2022-04-18 2022-04-18 Outpatient SFA SFA [id number] Mani 15:22:16 15:22:16 0207 F James 2022-03-23 2022-03-23 Outpatient SFA SFA [id number] Mani 15:34:38 15:34:38 0112 F James 2022-03-11 2022-03-11 Outpatient [id number] 00:00:00 00:00:00 Visit [id number] 2022-01-31 2022-02-01 Outpatient [facility]IE MNA [id number] [facility]oria 14:15:00 05:59:59 Neurology 14 l [place] 2022-01-31 2022-02-01 Outpatient MHIE MNA [id number] Memoria 14:15:00 05:59:59 Neurology 14 l [place] 2022-01-31 2022-01-31 Outpatient RICCI MackaySCHER MISCHER [id number] 08:15:00 23:59:59 Markos 14 [place] 2022-01-31 2022-01-31 Outpatient MHIE MHIE [id number] Memoria 08:15:00 08:15:00 14 jeison Newman 2022-01-19 2022-01-19 Outpatient SFA SFA [id number] Mani 08:40:07 08:40:07 1110 F James 2022-01-19 2022-01-19 Outpatient [id number] 00:00:00 00:00:00 Visit [id number] ebcde0 2022-01-11 2022-01-12 Outpatient nullFlavo MNA [id number] Memoria 18:15:00 04:59:59 r Neurology 13 jeison Newman 2022-01-11 2022-01-12 Outpatient nullFlavo MNA [id number] Memoria 18:15:00 04:59:59 r Neurology 13 jeison Newman 2022-01-11 2022-01-11 Outpatient RICCI MackaySCHER MISCHER [id number] 13:15:00 23:59:59 Markos 13 [place] 2022-01-11 2022-01-11 Outpatient MHIE MHIE [id number] Memoria 13:15:00 13:15:00 13 jeison Newman 2021-12-20 2021-12-20 Outpatient SFA SFA [id number] Mani 10:20:54 10:20:54 1011 F James 2021-12-19 2021-12-19 Outpatient SFA SFA [id number] Mani 16:52:40 16:52:40 1010 F James 2021-12-19 2021-12-19 Outpatient [id number] 00:00:00 00:00:00 Visit [id number] 770-46ea-a -v0zp-1d0 0ff-[id number] [id number] 2021-11-29 2021-11-29 Outpatient [id number] 00:00:00 00:00:00 Visit 5y1w-5708 v3z-2162-6 -8240-dd2 240-dd2b7c i3lh72956 v15498 2021-11-26 2021-11-26 Outpatient [id number] [id number] 00:00:00 00:00:00 Visit 913a-41dd 13a-41dd-b -p3r1-8x8 5p4-3n6s4m v8bv6038w r0333d 2021-11-24 2021-11-25 Outpatient nullFlavo MNA [id number] Memoria 16:00:00 04:59:59 r Neurology 12 l Pondersony Newman 2021-11-24 2021-11-25 Outpatient nullFlavo MNA [id number] Memoria 16:00:00 04:59:59 r Neurology 12 l Lyndsey Trent 2021-11-24 2021-11-24 [facility] [id number] 11:00:00 23:59:59 Markos Theresa Davidson 2021-11-24 2021-11-24 [facility] [id number] Memoria 11:00:00 11:00:00 12 jeison Newman 2021-11-18 2021-11-18 Outpatient [id number] 00:00:00 00:00:00 Visit bddf-439d ddf-439d-9 -93af-5e7 3af-4k318y 96d3n3zd0 5b9ea2 2021-10-11 2021-10-11 Outpatient [id number] [id number] 00:00:00 00:00:00 Visit 2t50-3104 g08-0260-3 -8617-b46 617-b468fa 4sb46f1zx 38d1ce 2021-09-28 2021-09-28 Ambulatory nullFlavo MNA [id number] Memoria 18:30:00 18:30:00 Pre-Reg r Neurology 11 l Pondersony Quevedoann 2021-09-28 2021-09-28 Ambulatory nullFlavo MNA [id number] Memoria 18:30:00 18:30:00 Pre-Reg r Neurology 11 l Lyndsey Newman 2021-09-28 2021-09-28 Outpatient MHIE IE [id number] Memoria 13:30:00 13:30:00 11 jeison Newman 2021-09-28 2021-09-28 Outpatient DAVID Mackay [facility] [id number] 13:30:00 13:30:00 Markos 11 Stuart 2021-07-28 2021-07-28 Case YINKA Mendoza 1.2.840.114 [id number] Univers 00:00:00 00:00:00 Management Ting YOUNG 350.1.13.10 ity re[id number] [id number] [place] 2021-06-29 2021-06-30 Outpatient nullFlavo MNA [id number] Memoria 20:15:00 04:59:59 r Neurology 10 l Lyndsey Newman 2021-06-29 2021-06-30 Outpatient nullFlavo MNA [id number] Memoria 20:15:00 04:59:59 r Neurology 10 jeison Newman 2021-06-29 2021-06-29 Outpatient [facility] [id number] 15:15:00 23:59:59 Markos 10 Stuart 2021-06-29 2021-06-29 Outpatient MHIE IE [id number] Memoria 15:15:00 15:15:00 10 jeison Newman 2021-04-28 2021-04-29 Outpatient nullFlavo MNA [id number] Memoria 16:00:00 05:59:59 r Neurology 08 jeison Newman 2021-04-28 2021-04-29 Outpatient nullFlavo MNA [id number] Memoria 16:00:00 05:59:59 r Neurology 08 l Lyndsey Newman 2021-04-28 2021-04-28 Outpatient [facility] [id number] 10:00:00 23:59:59 Markos 08 Stuart 2021-04-28 2021-04-28 Outpatient MHIE MHIE [id number] Memoria 10:00:00 10:00:00 08 jeison Newman 2021-03-16 2021-03-16 Ambulatory nullFlavo MNA [id number] Memoria 17:45:00 17:45:00 Pre-Reg r Neurology 09 l Lyndsey [place] 2021-03-16 2021-03-16 Ambulatory nullFlavo MNA [id number] Memoria 17:45:00 17:45:00 Pre-Reg r Neurology 09 l Lyndsey Trent 2021-03-16 2021-03-16 Outpatient MHIE MHIE [id number] Memoria 11:45:00 11:45:00 09 jeison Newman 2021-03-16 2021-03-16 Outpatient DAVID Mackay [facility]ER 350 [id number] 11:45:00 11:45:00 Markos 09 [place] 2021-02-08 2021-02-08 Outpatient Rene RODRIGUES [facility] [id number] [facility] 14:00:00 14:00:00 [facility] 2021-01-27 2021-01-28 Outpatient nullFlavo MNA [id number] Memoria 15:15:00 05:59:59 r Neurology 07 l Ponder [place] 2021-01-27 2021-01-28 Outpatient nullFlavo MNA [id number] Memoria 15:15:00 05:59:59 r Neurology 07 l Ponder [place] 2021-01-27 2021-01-27 Outpatient DAVID Mackay [facility] [id number] 09:15:00 23:59:59 Markos 07 [place] 2021-01-27 2021-01-27 Outpatient MHIE MHIE [id number] Memoria 09:15:00 09:15:00 07 l [place] 2020-12-31 2021-01-01 Outpatient nullFlavo [facility] 6107 [id number] Memoria 12:15:00 04:59:00 r [place] 00 [facility] 2020-12-31 2021-01-01 Outpatient nullFlavo [facility] [id number] Memoria 12:15:00 04:59:00 r [place] 00 [facility] 2020-12-31 2020-12-31 Outpatient THOMPSON, [facility] [address] [facility] 07:15:00 23:59:00 MARKOS 2020-12-31 2020-12-31 Outpatient Thompson [facility] [id number] 07:15:00 23:59:00 Markos 00 [place] 2020-12-16 2020-12-17 Outpatient nullFlavo MNA [id number] Memoria 15:30:00 04:59:59 r Neurology 06 l Lyndsey [place] 2020-12-16 2020-12-17 Outpatient nullFlavo MNA [id number] Memoria 15:30:00 04:59:59 r Neurology 06 l Ponder [place] 2020-12-16 2020-12-16 [facility] [id number] 10:30:00 23:59:59 Markos 06 [place] 2020-12-16 2020-12-16 Outpatient MHIE IE [id number] Memoria 10:30:00 10:30:00 06 jeison Trent 2020-09-06 2020-09-06 Orders Doctor MARRY 1.2.840.114 [id number] Univers 00:00:00 00:00:00 Only Unassigned, CHRISTEN 350.1.13.10 ity of [facility] 4.2.7.2.686 [place] as [id number] [facility] [address] 2020-07-29 2020-07-29 Telephone Mirella Gurrola 1.2.840.114 [id number] Univers 00:00:00 00:00:00 , Nika Young 350.1.13.10 [place] [id number] [facility] [address] 2020-06-11 2020-06-11 Outpatient Rene VILLA [facility] [id number] Univers 14:00:00 14:00:00 SENDIL ity [facility] 2020-06-08 2020-06-08 Outpatient Rene VILLA [facility] [id number] Univers 08:00:00 08:00:00 SENDIL ity [facility] 2020-05-20 2020-05-20 Outpatient R DAISY [facility] [id number] Univers 08:30:00 08:30:00 SENDIL ity [facility] 2020-05-11 2020-05-11 Office Daisy [facility] 1.2.840.114 [id number] Univers 10:30:24 11:56:39 Visit Camila DeanaRadhaEveRadha Glover 350.1.13.10 [place] [phone] Nm dical nal 059 [facility] 2020-05-11 2020-05-11 [facility] [id number] Univers 10:30:00 10:30:00 SENDIL ity [facility] 2020-05-10 2020-05-10 Orders Doctor MARRY 1.2.840.114 [id number] Univers 00:00:00 00:00:00 Only Unassigned, CHRISTEN 350.1.13.10 ity of [place] [facility] 4.2.7.2.686 [place] [phone] [address] 2019-12-17 2019-12-17 Outpatient R YENNIFER [facility] [id number] Univers 08:20:00 08:20:00 JOHN bourgeois [facility] 2019-12-03 2019-12-03 Ancillary Ольга Daniels [facility] 1. 2.840.114 [id number] Univers 08:19:20 08:59:20 Visit John Solorio 350.1.13.10 [place] [id number] Nm dical 179 [place] 2019-11-26 2019-11-26 [facility] 1.2.840.114 [id number] Univers 00:00:00 00:00:00 Management Ijeoma PRIMARY 350.1.13.10 [place] [id number] Nm dical 179 [place] 2019-11-20 2019-11-20 Ancillary Ijeoma Retana [facility] 1.2.840.1 [id number] Univers 08:20:47 09:00:47 Visit John Solorio PRIMARY 350.1.13.10 [place] [id number] Nm maco 179 [place] 2019-11-20 2019-11-20 Outpatient Rene SOLORIO [facility] [id number] Univers 08:20:00 08:20:00 JOHN bourgeois [facility] 2019-11-13 2019-11-13 Case Retana, [facility] 1.2.840.114 [id number] Univers 00:00:00 00:00:00 Management Ijeoma PRIMARY 350.1.13.10 [place] [id number] Nm niharikanc 179 [place] 2019-11-04 2019-11-04 Ancillary Ольга Daniels [facility] 1. 2.840.114 [id number] Univers 08:57:57 09:57:57 Visit John Solorio PRIMARY 350.1.13.10 [place] [id number] Nm maco 179 [place] 2019-11-04 2019-11-04 Outpatient Rene SOLORIO [facility] [id number] Univers 09:00:00 09:00:00 JOHN bourgeois [facility] 2019-09-28 2019-09-28 Orders Doctor MARRY 1.2.840.114 [id number] Univers 00:00:00 00:00:00 Only Unassigned, CHRISTEN 350.1.13.10 ity of [place] [facility] 4.2.7.2.686 [place] [id number] [facility] kaushik 009 [place] 2019-09-26 2019-09-26 Letter Therapy-Wal [facility] 1.2.840.114 [id number] Univers 00:00:00 00:00:00 (Out) kin, PRIMARY 350.1.13.10 it y of Pcp-Phys CARE 4.2.7.2.686 [place] PAVILLION [phone] Nm dical 179 [place] 2019-09-19 2019-09-19 [facility] 1.2.840.114 [id number] Univers 12:54:00 23:59:00 Encounter Jing PRIMARY 350.1.13.10 [place] [id number] Nm dical 807 [place] 2019-09-19 2019-09-19 Office [facility] 1.2.655.989 [id number] Univers 12:41:50 13:01:50 Visit Jing PRIMARY 350.1.13.10 it y [place] [id number] Nm dical 198 [place] 2019-09-19 2019-09-19 Outpatient R [facility] [id number] Univers 13:00:00 13:00:00 JING ity [facility] 2019-06-04 2019-06-04 Ambulatory nullFlavo MNA [id number] Memoria 18:30:00 18:30:00 Pre-Reg r Neurology 05 l Ponder [place] 2019-06-04 2019-06-04 Ambulatory nullFlavo MNA [id number] Memoria 18:30:00 18:30:00 Pre-Reg r Neurology 05 l Ponder [place] 2019-06-04 2019-06-04 Outpatient MHIE MHIE [id number] Memoria 13:30:00 13:30:00 05 l [place] 2019-06-04 2019-06-04 Outpatient RICCI MackaySCHER MHMISCHER [id number] 13:30:00 13:30:00 Markos 05 [place] 2019-03-28 2019-03-28 Ambulatory nullFlavo MNA [id number] Memoria 20:00:00 20:00:00 Pre-Reg r Neurology 04 l Ponder [place] 2019-03-28 2019-03-28 Ambulatory nullFlavo MNA [id number] Memoria 20:00:00 20:00:00 Pre-Reg r Neurology 04 l Ponder [place] 2019-03-28 2019-03-28 Outpatient MHIE MHIE [id number] Memoria 14:00:00 14:00:00 04 l [place] 2019-03-28 2019-03-28 Outpatient MARCO A MackayMISCHER MHMISCHER [id number] 14:00:00 14:00:00 Markos 04 [place] 2018-12-27 2018-12-28 Outpatient nullFlavo MNA [id number] Memoria 19:45:00 04:59:59 r Neurology 03 l Lyndsey Quevedoann 2018-12-27 2018-12-28 Outpatient nullFlavo MNA [id number] Memoria 19:45:00 04:59:59 r Neurology 03 l Lyndsey Quevedoann 2018-12-27 2018-12-27 Outpatient MARCO A [facility]CTS[facility]ER [facility] [id number] 14:45:00 23:59:59 Markos 03 [place] 2018-12-27 2018-12-27 Outpatient MHIE MHIE [id number] Memoria 14:45:00 14:45:00 03 jeison Trent 2018-11-15 2018-11-16 Outpatient nullFlavo MNA [id number] Memoria 20:00:00 04:59:59 r Neurology 02 jeison Solorio [place] 2018-11-15 2018-11-16 Outpatient nullFlavo MNA [id number] Memoria 20:00:00 04:59:59 r Neurology 02 jeison Ponder [place] 2018-11-15 2018-11-15 Outpatient Thompson [facility] [id number] 15:00:00 23:59:59 Markos 02 [place] 2018-11-15 2018-11-15 Outpatient MHIE MHIE [id number] Memoria 15:00:00 15:00:00 02 jeison Trent 2018-11-07 2018-11-07 Outpatient MHIE MHIE [id number] Memoria 13:15:00 13:15:00 01 jeison [place] 2018-11-07 2018-11-07 Outpatient MHIE MHIE [id number] Memoria 13:15:00 13:15:00 01 jeison [place] 2018-07-26 2018-07-27 Outpatient nullFlavo MNA [id number] Memoria 16:30:00 04:59:59 r Neurology 00 jeison [place] 2018-07-26 2018-07-27 Outpatient nullFlavo MNA [id number] Memoria 16:30:00 04:59:59 r Neurology 00 jeison [place] 2018-07-26 2018-07-26 Outpatient MARCO A MackayCTSCHER [facility] [id number] 11:30:00 23:59:59 Markos 00 [place] 2018-07-26 2018-07-26 Outpatient MHIE MHIE [id number] Memoria 11:30:00 11:30:00 00 l [place] Results Test Description Test Time Test Comments Results Result Comments Source TSH, THIRD GENERATION 2022-04-20 05:57:20 Test Item Value Reference Range Interpretation Comme nts TSH, THIRD GENERATION (test code = 2821) 0.342 UIU/ML 0.400-4.100 L CBC W/AUTO DIFF WITH [id number] 04:25:07 Test Item Value Reference Range Interpretation Comments WBC (test code = 7.0 K/UL 3.5-11.0 1001) RBC (test code = 4.16 M/UL 3.80-5.40 1002) HEMOGLOBIN (test code 13.1 G/DL 11.5-15.5 = 1003) HEMATOCRIT (test code 39.2 % 34.0-45.0 = 1004) MCV (test code = 94.2 fL 80.0-99.0 1005) MCH (test code = 31.5 PG 25.0-33.0 1006) MCHC (test code = 33.4 G/DL 31.0-36.0 1007) RDW (test code = 12.0 % 11.5-15.0 1038) NEUTROPHILS (test 65.2 % code = 1008) LYMPHOCYTES (test 23.3 % code = 1010) MONOCYTES (test code 8.6 % = 1011) EOSINOPHILS (test 1.9 % code = 1012) BASOPHILS (test code 0.9 % = 1013) IMMATURE GRANULOCYTES 0.1 % (test code = 1036) NUCLEATED RBCS (test 0.0 /100 WBC'S See_Comment [Aut omated code = 1065) message] The sy stem which generated this result transmitted reference range : 0.0. The refere nce range was not u sed to interpret th is result as normal/abnormal . PLATELET COUNT (test 208 K/UL 130-400 code = 1015) ABSOLUTE NEUTROPHILS 4.58 K/UL 1.50-7.50 (test code = 1066) ABSOLUTE LYMPHOCYTES 1.63 K/UL 1.00-4.00 (test code = 1067) ABSOLUTE MONOCYTES 0.60 K/UL 0.20-1.00 (test code = 1068) ABSOLUTE EOSINOPHILS 0.13 K/UL 0.00-0.50 (test code = 1040) ABSOLUTE BASOPHILS 0.06 K/UL 0.00-0.20 (test code = 1069) ABS IMMATURE 0.01 K/UL 0.00-0.10 GRANULOCYTES (test code = 1020) ABS NUCLEATED RBCS 0.00 K/UL 0.00-0.11 [facility] has (test code = 74090) importan t pathology staff changes effective 05/10/2022. New pathology staff will provide uninterrupted, excellent patie nt care and clinic al consultation. S ee URL: [email or web address]. UN LESS OTHERWISE INDICATED, ALL TESTING PERFORM ED AT CLINICAL PATH[facility] LABORATORIES, [facility]. [address], [place] CLIA : [id number], CAP : [id number] COMPREHENSIVE METABOLIC [id number] 03:10:33 Test Item Value Reference Range Interpretation Comments GLUCOSE (test code = 69 MG/DL 70-99 L 2216) BUN (test code = 22 MG/DL 6-20 H 2207) CREATININE (test 0.95 MG/DL 0.60-1.30 code = 2214) eGFR (2020 CKD-EPI) 69 ML/MIN/1.73 >60 (test code = 43326) CALC BUN/CREAT (test 23 RATIO 6-28 code = 2235) SODIUM (test code = 147 MEQ/L 133-146 H 2230) POTASSIUM (test code 4.0 MEQ/L 3.5-5.4 = 2228) CHLORIDE (test code 106 MEQ/L 95-107 = 2215) CARBON DIOXIDE (test 29 MEQ/L 19-31 code = 2206) CALCIUM (test code = 9.7 MG/DL 8.5-10.5 2208) PROTEIN, TOTAL (test 6.6 G/DL 6.1-8.3 code = 2229) ALBUMIN (test code = 4.5 G/DL 3.5-5.2 2200) CALC GLOBULIN (test 2.1 G/DL 1.9-3.7 code = 2240) CALC A/G RATIO (test 2.1 RATIO 1.0-2.6 code = 2234) BILIRUBIN, TOTAL 0.3 MG/DL See_Comment [Automated message] (test code = 2207) The [employer] which generated this result transmit sonia reference range : <=1.2. The refe rence range was not u sed to interpret th is result as normal/abnormal . ALKALINE PHOSPHATASE 96 U/L 40-136 (test code = 2204) AST (test code = 31 U/L 9-40 2217) ALT (test code = 17 U/L 5-40 2218) TSH, THIRD [id number] 03:58:08 Test Item Value Reference Range Interpretation Comments TSH, THIRD 57.700 UIU/ML 0.400-4.100 H UNLESS OTHERW ISE GENERATION (test INDICATED, ALL code = 2821) TESTING PERFORM ED ATCLINICAL PATH OLOGY LABORATORIES, [place] [address] [place] [address] [facility] DIRECTOR: SAGE MARROQUIN M.D. CLIA NUMBER [id number] CAP ACCREDITATION N O. [id number] COMPREHENSIVE METABOLIC [id number] 03:01:08 Test Item Value Reference Range Interpretation Comments GLUCOSE (test code = 74 MG/DL 70-99 2216) BUN (test code = 10 MG/DL 6-20 2207) CREATININE (test 1.07 MG/DL 0.60-1.30 code = 221) eGFR (2020 CKD-EPI) 60 ML/MIN/1.73 >60 L (test code = 23491) CALC BUN/CREAT (test 9 RATIO 6-28 code = 2235) SODIUM (test code = 146 MEQ/L 674-916 0735) POTASSIUM (test code 3.7 MEQ/L 3.5-5.4 = 2227) CHLORIDE (test code 106 MEQ/L 95-107 = 2214) CARBON DIOXIDE (test 31 MEQ/L 19-31 code [...] PHOSPHATASE 85 U/L 40-136 (test code = 2203) AST (test code = 27 U/L 9-40 2217) ALT (test code = 18 U/L 5-40 2218) LIPID [id number] 03:01:08 Test Item Value Reference Range Interpretation [...] MOREINFORMATION , SEE CLIENT ANNOUNCE MENT AT [email or web address] RISK RATIO LDL/HDL 2.15 RATIO <3.22 (test code = 2237) HEMOGLOBIN [id number] 02:08:41 Test Item Value Reference Range Interpretation Comments HEMOGLOBIN A1c (test code = 52711) 5.1 % 4.2-5.6 COMPREHENSIVE METABOLIC [id number] 00:00:00 Test Item Value Reference Range Interpretation Comments GLUCOSE (test code = 2216) 74 MG/DL BUN (test code = 2207) 10 MG/DL CREATININE (test code = 2214) 1.07 MG/DL eGFR (2020 CKD-EPI) (test code 60 ML/MIN/1.73 = 85612) CALC BUN/CREAT (test code = 9 RATIO 2234) SODIUM (test code = 223) 146 MEQ/L POTASSIUM (test code = 2228) 3.7 MEQ/L CHLORIDE (test code = 2215) 106 MEQ/L CARBON DIOXIDE (test code = 31 MEQ/L 2205) CALCIUM (test code = 2208) 9.6 MG/DL PROTEIN, TOTAL (test code = [...] code = 2219) 18 U/L COMPREHENSIVE METABOLIC [id number] 00:00:00 Test Item Value Reference Range Interpretation Comments GLUCOSE (test code = 2217) 74 MG/DL BUN (test code = 2208) 10 MG/DL CREATININE (test code = 2214) 1.07 MG/DL eGFR (2020 CKD-EPI) (test code 60 ML/MIN/1.73 = 05053) CALC BUN/CREAT (test code = 9 RATIO [...] (test code = 2219) 18 U/L LIPID [id number] 00:00:00 Test Item Value Reference Range Interpretation Comments CHOLESTEROL (test code = 2210) 193 MG/DL TRIGLYCERIDES (test code = 2232) 122 MG/DL HDL CHOLESTEROL (test code = 2220) 54 MG/DL CALC LDL CHOL (test code = 2237) 116 MG/DL RISK RATIO LDL/HDL (test code = 2.15 RATIO 2238) LIPID [id number] 00:00:00 Test Item Value Reference Range Interpretation Comments CHOLESTEROL (test code = 2210) 193 MG/DL TRIGLYCERIDES (test code = 2232) 122 MG/DL HDL CHOLESTEROL (test code = 2220) 54 MG/DL CALC LDL CHOL (test code = 2237) 116 MG/DL RISK RATIO LDL/HDL (test code = 2.15 RATIO 8) HEMOGLOBIN [id number] 00:00:00 Test Item Value Reference Range Interpretation Comments HEMOGLOBIN A1c (test code = 15176) 5.1 % HEMOGLOBIN [id number] 00:00:00 Test Item Value Reference Range Interpretation Comments HEMOGLOBIN A1c (test code = 96655) 5.1 % HEMOGLOBIN [id number] 00:00:00 Test Item Value Reference Range Interpretation Comments HEMOGLOBIN A1c (test code = 51509) 5.1 % TSH, THIRD [id number] 00:00:00 Test Item Value Reference Range Interpretation Comments TSH, THIRD GENERATION (test 57.700 UIU/ML code = 2821) TSH, THIRD [id number] 00:00:00 Test Item Value Reference Range Interpretation Comments TSH, THIRD GENERATION (test 57.700 UIU/ML code = 2821) TSH, THIRD [id number] 00:00:00 Test Item Value Reference Range Interpretation Comments TSH, THIRD GENERATION (test 57.700 UIU/ML code = 2821) COMPREHENSIVE METABOLIC [id number] 00:00:00 Test Item Value Reference Range Interpretation Comments GLUCOSE (test code = 2217) 74 MG/DL BUN (test code = 2208) 10 MG/DL CREATININE (test code = 2214) 1.07 MG/DL eGFR (2020 CKD-EPI) (test code 60 ML/MIN/1.73 = 86126) CALC BUN/CREAT (test code = 9 RATIO [...] code = 2219) 18 U/L COMPREHENSIVE METABOLIC [id number] 00:00:00 Test Item Value Reference Range Interpretation Comments GLUCOSE (test code = 2217) 74 MG/DL BUN (test code = 2208) 10 MG/DL CREATININE (test code = 2214) 1.07 MG/DL eGFR (2020 CKD-EPI) (test code 60 ML/MIN/1.73 = 55926) CALC BUN/CREAT (test code = 9 RATIO [...] (test code = 2219) 18 U/L LIPID [id number] 00:00:00 Test Item Value Reference Range Interpretation Comments CHOLESTEROL (test code = 2210) 193 MG/DL TRIGLYCERIDES (test code = 2232) 122 MG/DL HDL CHOLESTEROL (test code = 2220) 54 MG/DL CALC LDL CHOL (test code = 2237) 116 MG/DL RISK RATIO LDL/HDL (test code = 2.15 RATIO 2238) LIPID [id number] 00:00:00 Test Item Value Reference Range Interpretation Comments CHOLESTEROL (test code = 2210) 193 MG/DL TRIGLYCERIDES (test code = 2232) 122 MG/DL HDL CHOLESTEROL (test code = 2220) 54 MG/DL CALC LDL CHOL (test code = 2237) 116 MG/DL RISK RATIO LDL/HDL (test code = 2.15 RATIO 2238) HEMOGLOBIN [id number] 00:00:00 Test Item Value Reference Range Interpretation Comments HEMOGLOBIN A1c (test code = 58365) 5.1 % HEMOGLOBIN [id number] 00:00:00 Test Item Value Reference Range Interpretation Comments HEMOGLOBIN A1c (test code = 69896) 5.1 % HEMOGLOBIN [id number] 00:00:00 Test Item Value Reference Range Interpretation Comments HEMOGLOBIN A1c (test code = 57427) 5.1 % TSH, THIRD [id number] 00:00:00 Test Item Value Reference Range Interpretation Comments TSH, THIRD GENERATION (test 57.700 UIU/ML code = 2821) TSH, THIRD [id number] 00:00:00 Test Item Value Reference Range Interpretation Comments TSH, THIRD GENERATION (test 57.700 UIU/ML code = 2821) TSH, THIRD [id number] 00:00:00 Test Item Value Reference Range Interpretation Comments TSH, THIRD GENERATION (test 57.700 UIU/ML code = 2821) COMPREHENSIVE METABOLIC [id number] 00:00:00 Test Item Value Reference Range Interpretation Comments GLUCOSE (test code = 2217) 74 MG/DL BUN (test code = 2208) 10 MG/DL CREATININE (test code = 2214) 1.07 MG/DL eGFR (2020 CKD-EPI) (test code 60 ML/MIN/1.73 = 07880) CALC BUN/CREAT (test code = 9 RATIO [...] CALC GLOBULIN (test code = 1.8 G/DL 0) CALC A/G RATIO (test code = 2.3 RATIO 2234) BILIRUBIN, TOTAL (test code = 0.4 MG/DL 2206) ALKALINE PHOSPHATASE (test 85 U/L code = 2204) AST (test code = 2218) 27 U/L ALT (test code = 2219) 18 U/L COMPREHENSIVE METABOLIC [id number] 00:00:00 Test Item Value Reference Range Interpretation Comments GLUCOSE (test code = 2217) 74 MG/DL BUN (test code = 2208) 10 MG/DL CREATININE (test code = 2214) 1.07 MG/DL eGFR (2020 CKD-EPI) (test code 60 ML/MIN/1.73 = 18939) CALC BUN/CREAT (test code = 9 RATIO [...] (test code = 2219) 18 U/L LIPID [id number] 00:00:00 Test Item Value Reference Range Interpretation Comments CHOLESTEROL (test code = 2210) 193 MG/DL TRIGLYCERIDES (test code = 2232) 122 MG/DL HDL CHOLESTEROL (test code = 2220) 54 MG/DL CALC LDL CHOL (test code = 2237) 116 MG/DL RISK RATIO LDL/HDL (test code = 2.15 RATIO 2238) LIPID [id number] 00:00:00 Test Item Value Reference Range Interpretation Comments CHOLESTEROL (test code = 2210) 193 MG/DL TRIGLYCERIDES (test code = 2232) 122 MG/DL HDL CHOLESTEROL (test code = 2220) 54 MG/DL CALC LDL CHOL (test code = 2237) 116 MG/DL RISK RATIO LDL/HDL (test code = 2.15 RATIO 2238) HEMOGLOBIN [id number] 00:00:00 Test Item Value Reference Range Interpretation Comments HEMOGLOBIN A1c (test code = 23638) 5.1 % HEMOGLOBIN [id number] 00:00:00 Test Item Value Reference Range Interpretation Comments HEMOGLOBIN A1c (test code = 99367) 5.1 % HEMOGLOBIN [id number] 00:00:00 Test Item Value Reference Range Interpretation Comments HEMOGLOBIN A1c (test code = 21155) 5.1 % TSH, THIRD [id number] 00:00:00 Test Item Value Reference Range Interpretation Comments TSH, THIRD GENERATION (test 57.700 UIU/ML code = 2821) TSH, THIRD [id number] 00:00:00 Test Item Value Reference Range Interpretation Comments TSH, THIRD GENERATION (test 57.700 UIU/ML code = 2821) TSH, THIRD [id number] 00:00:00 Test Item Value Reference Range Interpretation Comments TSH, THIRD GENERATION (test 57.700 UIU/ML code = 2821) TSH, THIRD [id number] 06:59:46 Test Item Value Reference Range Interpretation Comments TSH, THIRD GENERATION (test code 0.070 UIU/ML 0.400-4.100 L = 2821) VITAMIN B 12 AND FOLIC [id number] 06:59:46 Test Item Value Reference Range Interpretation Comments VITAMIN B-12 (test 689 PG/ML 200-950 code = 2840) FOLIC ACID (test >20.0 UG/L SEE BELOW INTE RPRETIVE code = 2695) RANGES DE FICIENCY . . . . . . . . . . . . . . . UG/L <4.0 POSSIBLE DEFICIENCY. . . . . . . . . . . UG/L 4. 0-5.9 SUFFICIENT . . . . . . . . . . . . . . . UG/L >=6.0 UNLESS OT HERWISE INDICATED, ALL TESTING PERFORMED [facility] [address] [place] [address] 4 LABORATORY DIRE CTOR: SAGE SANTANA M.D. CLIA NUMBER [id number] [place] [id number] VITAMIN D, 25 [id number] 06:44:37 Test Item Value Reference Range Interpretation [...] . . . . NG/ML 30-100 HEMOGLOBIN [id number] 06:07:46 Test Item Value Reference Range Interpretation Comments HEMOGLOBIN A1c (test code = 47668) 5.4 % 4.2-5.6 HEMOGLOBIN [id number] 00:00:00 Test Item Value Reference Range Interpretation Comments HEMOGLOBIN A1c (test code = 66560) 5.4 % [id number] 00:00:00 Test Item Value Reference Range Interpretation Comments TSH, THIRD GENERATION (test code 0.070 UIU/ML = 2821) [id number] 00:00:00 Test Item Value Reference Range Interpretation Comments TSH, THIRD GENERATION (test code 0.070 UIU/ML = 2821) [id number] 00:00:00 Test Item Value Reference Range Interpretation Comments TSH, THIRD GENERATION (test code 0.070 UIU/ML = 2821) VITAMIN D, 25 [id number] 00:00:00 Test Item Value Reference Range Interpretation Comments VITAMIN D, 25 OH (test code = 4958) 59 NG/ML VITAMIN D, 25 [id number] 00:00:00 Test Item Value Reference Range Interpretation Comments VITAMIN D, 25 OH (test code = 4958) 59 NG/ML VITAMIN B 12 AND FOLIC [id number] 00:00:00 Test Item Value Reference Range Interpretation Comments VITAMIN B-12 (test code = 2840) 689 PG/ML FOLIC ACID (test code = 2695) >20.0 UG/L VITAMIN B 12 AND FOLIC [id number] 00:00:00 Test Item Value Reference Range Interpretation Comments VITAMIN B-12 (test code = 2840) 689 PG/ML FOLIC ACID (test code = 2695) >20.0 UG/L HEMOGLOBIN [id number] 00:00:00 Test Item Value Reference Range Interpretation Comments HEMOGLOBIN A1c (test code = 61476) 5.4 % HEMOGLOBIN [id number] 00:00:00 Test Item Value Reference Range Interpretation Comments HEMOGLOBIN A1c (test code = 23968) 5.4 % HEMOGLOBIN [id number] 00:00:00 Test Item Value Reference Range Interpretation Comments HEMOGLOBIN A1c (test code = 72852) 5.4 % [id number] 00:00:00 Test Item Value Reference Range Interpretation Comments TSH, THIRD GENERATION (test code 0.070 UIU/ML = 2821) [id number] 00:00:00 Test Item Value Reference Range Interpretation Comments TSH, THIRD GENERATION (test code 0.070 UIU/ML = 2821) [id number] 00:00:00 Test Item Value Reference Range Interpretation Comments TSH, THIRD GENERATION (test code 0.070 UIU/ML = 2821) VITAMIN D, 25 [id number] 00:00:00 Test Item Value Reference Range Interpretation Comments VITAMIN D, 25 OH (test code = 4958) 59 NG/ML VITAMIN D, 25 [id number] 00:00:00 Test Item Value Reference Range Interpretation Comments VITAMIN D, 25 OH (test code = 4958) 59 NG/ML VITAMIN B 12 AND FOLIC [id number] 00:00:00 Test Item Value Reference Range Interpretation Comments VITAMIN B-12 (test code = 2840) 689 PG/ML FOLIC ACID (test code = 2695) >20.0 UG/L VITAMIN B 12 AND FOLIC [id number] 00:00:00 Test Item Value Reference Range Interpretation Comments VITAMIN B-12 (test code = 2840) 689 PG/ML FOLIC ACID (test code = 2695) >20.0 UG/L HEMOGLOBIN [id number] 00:00:00 Test Item Value Reference Range Interpretation Comments HEMOGLOBIN A1c (test code = 43574) 5.4 % HEMOGLOBIN [id number] 00:00:00 Test Item Value Reference Range Interpretation Comments HEMOGLOBIN A1c (test code = 73903) 5.4 % HEMOGLOBIN [id number] 00:00:00 Test Item Value Reference Range Interpretation Comments HEMOGLOBIN A1c (test code = 24135) 5.4 % [id number] 00:00:00 Test Item Value Reference Range Interpretation Comments TSH, THIRD GENERATION (test code 0.070 UIU/ML = 2821) [id number] 00:00:00 Test Item Value Reference Range Interpretation Comments TSH, THIRD GENERATION (test code 0.070 UIU/ML = 2821) [id number] 00:00:00 Test Item Value Reference Range Interpretation Comments TSH, THIRD GENERATION (test code 0.070 UIU/ML = 2821) VITAMIN D, 25 [id number] 00:00:00 Test Item Value Reference Range Interpretation Comments VITAMIN D, 25 OH (test code = 4958) 59 NG/ML VITAMIN D, 25 [id number] 00:00:00 Test Item Value Reference Range Interpretation Comments VITAMIN D, 25 OH (test code = 4958) 59 NG/ML VITAMIN B 12 AND FOLIC [id number] 00:00:00 Test Item Value Reference Range Interpretation Comments VITAMIN B-12 (test code = 2840) 689 PG/ML FOLIC ACID (test code = 2695) >20.0 UG/L VITAMIN B 12 AND FOLIC [id number] 00:00:00 Test Item Value Reference Range Interpretation Comments VITAMIN B-12 (test code = 2840) 689 PG/ML FOLIC ACID (test code = 2695) >20.0 UG/L HEMOGLOBIN [id number] 00:00:00 Test Item Value Reference Range Interpretation Comments HEMOGLOBIN A1c (test code = 08163) 5.4 % HEMOGLOBIN [id number] 00:00:00 Test Item Value Reference Range Interpretation Comments HEMOGLOBIN A1c (test code = 76035) 5.4 % HEMOGLOBIN [id number] 00:00:00 Test Item Value Reference Range Interpretation Comments HEMOGLOBIN A1c (test code = 59656) 5.4 % HEMOGLOBIN [id number] 00:00:00 Test Item Value Reference Range Interpretation Comments HEMOGLOBIN A1c (test code = 47403) 5.4 % [id number] 00:00:00 Test Item Value Reference Range Interpretation Comments TSH, THIRD GENERATION (test code 0.070 UIU/ML = 2821) [id number] 00:00:00 Test Item Value Reference Range Interpretation Comments TSH, THIRD GENERATION (test code 0.070 UIU/ML = 2821) [id number] 00:00:00 Test Item Value Reference Range Interpretation Comments TSH, THIRD GENERATION (test code 0.070 UIU/ML = 2821) VITAMIN D, 25 [id number] 00:00:00 Test Item Value Reference Range Interpretation Comments VITAMIN D, 25 OH (test code = 4958) 59 NG/ML VITAMIN D, 25 [id number] 00:00:00 Test Item Value Reference Range Interpretation Comments VITAMIN D, 25 OH (test code = 4958) 59 NG/ML HEMOGLOBIN [id number] 00:00:00 Test Item Value Reference Range Interpretation Comments HEMOGLOBIN A1c (test code = 45347) 5.4 % HEMOGLOBIN [id number] 00:00:00 Test Item Value Reference Range Interpretation Comments HEMOGLOBIN A1c (test code = 31025) 5.4 % VITAMIN B 12 AND FOLIC [id number] 00:00:00 Test Item Value Reference Range Interpretation Comments VITAMIN B-12 (test code = 2840) 689 PG/ML FOLIC ACID (test code = 2695) >20.0 UG/L VITAMIN B 12 AND FOLIC [id number] 00:00:00 Test Item Value Reference Range Interpretation Comments VITAMIN B-12 (test code = 2840) 689 PG/ML FOLIC ACID (test code = 2695) >20.0 UG/L [id number] 00:00:00 Test Item Value Reference Range Interpretation Comments TSH, THIRD GENERATION (test code 0.070 UIU/ML = 2821) [id number] 00:00:00 Test Item Value Reference Range Interpretation Comments TSH, THIRD GENERATION (test code 0.070 UIU/ML = 2821) [id number] 00:00:00 Test Item Value Reference Range Interpretation Comments TSH, THIRD GENERATION (test code 0.070 UIU/ML = 2821) VITAMIN D, 25 [id number] 00:00:00 Test Item Value Reference Range Interpretation Comments VITAMIN D, 25 OH (test code = 4958) 59 NG/ML VITAMIN D, 25 [id number] 00:00:00 Test Item Value Reference Range Interpretation Comments VITAMIN D, 25 OH (test code = 4958) 59 NG/ML VITAMIN B 12 AND FOLIC [id number] 00:00:00 Test Item Value Reference Range Interpretation Comments VITAMIN B-12 (test code = 2840) 689 PG/ML FOLIC ACID (test code = 2695) >20.0 UG/L VITAMIN B 12 AND FOLIC [id number] 00:00:00 Test Item Value Reference Range Interpretation Comments VITAMIN B-12 (test code = 2840) 689 PG/ML FOLIC ACID (test code = 2695) >20.0 UG/L HEMOGLOBIN [id number] 00:00:00 Test Item Value Reference Range Interpretation Comments HEMOGLOBIN A1c (test code = 81055) 5.4 % HEMOGLOBIN [id number] 00:00:00 Test Item Value Reference Range Interpretation Comments HEMOGLOBIN A1c (test code = 85918) 5.4 % HEMOGLOBIN [id number] 00:00:00 Test Item Value Reference Range Interpretation Comments HEMOGLOBIN A1c (test code = 05515) 5.4 % [id number] 00:00:00 Test Item Value Reference Range Interpretation Comments TSH, THIRD GENERATION (test code 0.070 UIU/ML = 2821) [id number] 00:00:00 Test Item Value Reference Range Interpretation Comments TSH, THIRD GENERATION (test code 0.070 UIU/ML = 2821) [id number] 00:00:00 Test Item Value Reference Range Interpretation Comments TSH, THIRD GENERATION (test code 0.070 UIU/ML = 2821) VITAMIN D, 25 [id number] 00:00:00 Test Item Value Reference Range Interpretation Comments VITAMIN D, 25 OH (test code = 4958) 59 NG/ML VITAMIN D, 25 [id number] 00:00:00 Test Item Value Reference Range Interpretation Comments VITAMIN D, 25 OH (test code = 4958) 59 NG/ML VITAMIN B 12 AND FOLIC [id number] 00:00:00 Test Item Value Reference Range Interpretation Comments VITAMIN B-12 (test code = 2840) 689 PG/ML FOLIC ACID (test code = 2695) >20.0 UG/L VITAMIN B 12 AND FOLIC [id number] 00:00:00 Test Item Value Reference Range Interpretation Comments VITAMIN B-12 (test code = 2840) 689 PG/ML FOLIC ACID (test code = 2695) >20.0 UG/L HEMOGLOBIN [id number] 00:00:00 Test Item Value Reference Range Interpretation Comments HEMOGLOBIN A1c (test code = 03076) 5.4 % HEMOGLOBIN [id number] 00:00:00 Test Item Value Reference Range Interpretation Comments HEMOGLOBIN A1c (test code = 70873) 5.4 % HEMOGLOBIN [id number] 00:00:00 Test Item Value Reference Range Interpretation Comments HEMOGLOBIN A1c (test code = 58425) 5.4 % [id number] 00:00:00 Test Item Value Reference Range Interpretation Comments TSH, THIRD GENERATION (test code 0.070 UIU/ML = 2821) [id number] 00:00:00 Test Item Value Reference Range Interpretation Comments TSH, THIRD GENERATION (test code 0.070 UIU/ML = 2821) [id number] 00:00:00 Test Item Value Reference Range Interpretation Comments TSH, THIRD GENERATION (test code 0.070 UIU/ML = 2821) VITAMIN D, 25 [id number] 00:00:00 Test Item Value Reference Range Interpretation Comments VITAMIN D, 25 OH (test code = 4958) 59 NG/ML VITAMIN D, 25 [id number] 00:00:00 Test Item Value Reference Range Interpretation Comments VITAMIN D, 25 OH (test code = 4958) 59 NG/ML VITAMIN B 12 AND FOLIC [id number] 00:00:00 Test Item Value Reference Range Interpretation Comments VITAMIN B-12 (test code = 2840) 689 PG/ML FOLIC ACID (test code = 2695) >20.0 UG/L VITAMIN B 12 AND FOLIC [id number] 00:00:00 Test Item Value Reference Range Interpretation Comments VITAMIN B-12 (test code = 2840) 689 PG/ML FOLIC ACID (test code = 2695) >20.0 UG/L HEMOGLOBIN [id number] 00:00:00 Test Item Value Reference Range Interpretation Comments HEMOGLOBIN A1c (test code = 37815) 5.4 % HEMOGLOBIN [id number] 00:00:00 Test Item Value Reference Range Interpretation Comments HEMOGLOBIN A1c (test code = 12525) 5.4 % [id number] 09:01:48 Test Item Value Reference Interpretation Comments Range LEVETIRACETAM 28.1 12.0-46.0 This test was developed and (test code = mcg/mL its performance 44635) characteristics determined by [facility] ([facility]). It has n ot [...] [address], [address], [address], [place] [address] CLIA NO: [id number] 09:01:48 Test Item Value Reference Interpretation Comments Range LAMOTRIGINE 11.8 2.5-15.0 This test was d eveloped and (test code = mcg/mL its performance 58549) characteristics determined by [facility] ([facility]). [...] [address], [address], [facility] [address] [place], [place] [address] CLIA NO: [id number] UNLE SS OTHERWISE INDICATED, ALL TESTING PERFORMED [facility], [place]. [address] [place] [address] [address]: SAGE MARROQUIN M.D. TERESA López [id number] [id number] 00:00:00 Test Item Value Reference Range Interpretation Comments LEVETIRACETAM (test code = 31290) 28.1 mcg/mL [id number] 00:00:00 Test Item Value Reference Range Interpretation Comments LEVETIRACETAM (test code = 91594) 28.1 mcg/mL [id number] 00:00:00 Test Item Value Reference Range Interpretation Comments LAMOTRIGINE (test code = 68359) 11.8 mcg/mL [id number] 00:00:00 Test Item Value Reference Range Interpretation Comments LAMOTRIGINE (test code = 69152) 11.8 mcg/mL [id number] 00:00:00 Test Item Value Reference Range Interpretation Comments LEVETIRACETAM (test code = 38417) 28.1 mcg/mL [id number] 00:00:00 Test Item Value Reference Range Interpretation Comments LEVETIRACETAM (test code = 93665) 28.1 mcg/mL [id number] 00:00:00 Test Item Value Reference Range Interpretation Comments LAMOTRIGINE (test code = 89705) 11.8 mcg/mL [id number] 00:00:00 Test Item Value Reference Range Interpretation Comments LAMOTRIGINE (test code = 49666) 11.8 mcg/mL [id number] 00:00:00 Test Item Value Reference Range Interpretation Comments LEVETIRACETAM (test code = 06050) 28.1 mcg/mL [id number] 00:00:00 Test Item Value Reference Range Interpretation Comments LEVETIRACETAM (test code = 12752) 28.1 mcg/mL [id number] 00:00:00 Test Item Value Reference Range Interpretation Comments LAMOTRIGINE (test code = 92353) 11.8 mcg/mL [id number] 00:00:00 Test Item Value Reference Range Interpretation Comments LAMOTRIGINE (test code = 04947) 11.8 mcg/mL [id number] 00:00:00 Test Item Value Reference Range Interpretation Comments LEVETIRACETAM (test code = 56314) 28.1 mcg/mL [id number] 00:00:00 Test Item Value Reference Range Interpretation Comments LEVETIRACETAM (test code = 23582) 28.1 mcg/mL [id number] 00:00:00 Test Item Value Reference Range Interpretation Comments LAMOTRIGINE (test code = 77515) 11.8 mcg/mL [id number] 00:00:00 Test Item Value Reference Range Interpretation Comments LAMOTRIGINE (test code = 21810) 11.8 mcg/mL [id number] 00:00:00 Test Item Value Reference Range Interpretation Comments LEVETIRACETAM (test code = 65417) 28.1 mcg/mL [id number] 00:00:00 Test Item Value Reference Range Interpretation Comments LEVETIRACETAM (test code = 12076) 28.1 mcg/mL [id number] 00:00:00 Test Item Value Reference Range Interpretation Comments LAMOTRIGINE (test code = 89161) 11.8 mcg/mL [id number] 00:00:00 Test Item Value Reference Range Interpretation Comments LAMOTRIGINE (test code = 47905) 11.8 mcg/mL [id number] 00:00:00 Test Item Value Reference Range Interpretation Comments LEVETIRACETAM (test code = 87867) 28.1 mcg/mL [id number] 00:00:00 Test Item Value Reference Range Interpretation Comments LEVETIRACETAM (test code = 28119) 28.1 mcg/mL [id number] 00:00:00 Test Item Value Reference Range Interpretation Comments LAMOTRIGINE (test code = 39564) 11.8 mcg/mL [id number] 00:00:00 Test Item Value Reference Range Interpretation Comments LAMOTRIGINE (test code = 10428) 11.8 mcg/mL [id number] 00:00:00 Test Item Value Reference Range Interpretation Comments LEVETIRACETAM (test code = 52723) 28.1 mcg/mL [id number] 00:00:00 Test Item Value Reference Range Interpretation Comments LEVETIRACETAM (test code = 01197) 28.1 mcg/mL [id number] 00:00:00 Test Item Value Reference Range Interpretation Comments LAMOTRIGINE (test code = 60252) 11.8 mcg/mL [id number] 00:00:00 Test Item Value Reference Range Interpretation Comments LAMOTRIGINE (test code = 11233) 11.8 mcg/mL LIPID [id number] 05:03:13 Test Item Value Reference Range Interpretation [...] MOREINFORMATION , SEE CLIENT ANNOUNCE MENT AT [email or web address] RISK RATIO LDL/HDL 2.10 RATIO <3.22 (test code = 2238) COMPREHENSIVE METABOLIC [id number] 05:03:13 Test Item Value Reference Range Interpretation Comments GLUCOSE (test code = 90 MG/DL 70-99 2216) BUN (test code = 13 MG/DL -2207) CREATININE (test 1.18 MG/DL 0.60-1.30 code = 2214) eGFR (2020 CKD-EPI) 54 ML/MIN/1.73 >60 L (test code = 45479) CALC BUN/CREAT (test 11 RATIO 6-28 code = 2235) SODIUM (test code = 141 MEQ/L 924-826 9859) POTASSIUM (test code 3.5 MEQ/L 3.5-5.4 = 8) CHLORIDE (test code 99 MEQ/L 95-107 = 2214) CARBON DIOXIDE (test 27 MEQ/L 19-31 code = 2206) CALCIUM (test code = 10.2 MG/DL 8.5-10.5 2208) PROTEIN, TOTAL (test 7.2 G/DL 6.1-8.3 code = 2229) ALBUMIN (test code = 5.0 G/DL 3.5-5.2 2200) CALC GLOBULIN (test 2.2 G/DL 1.9-3.7 code = 2240) CALC A/G RATIO (test 2.3 RATIO 1.0-2.6 code = 2234) BILIRUBIN, TOTAL 0.5 MG/DL See_Comment [Automated message] [...] code = 33 U/L 5-40 2218) HEMOGLOBIN [id number] 04:27:11 Test Item Value Reference Range Interpretation Comments HEMOGLOBIN A1c (test code = 04953) 5.7 % 4.2-5.6 H CBC W/AUTO DIFF WITH [id number] 03:03:33 Test Item Value Reference Range Interpretation [...] RBCS 0.00 K/UL 0.00-0.11 (test code = 67918) CBC W/AUTO [id number] 00:00:00 Test Item Value Reference Range Interpretation [...] NUCLEATED RBCS (test code = 0.00 K/UL 03766) HEMOGLOBIN [id number] 00:00:00 Test Item Value Reference Range Interpretation Comments HEMOGLOBIN A1c (test code = 56435) 5.7 % HEMOGLOBIN [id number] 00:00:00 Test Item Value Reference Range Interpretation Comments HEMOGLOBIN A1c (test code = 05986) 5.7 % HEMOGLOBIN [id number] 00:00:00 Test Item Value Reference Range Interpretation Comments HEMOGLOBIN A1c (test code = 30102) 5.7 % LIPID [id number] 00:00:00 Test Item Value Reference Range Interpretation Comments CHOLESTEROL (test code = 2210) 180 MG/DL TRIGLYCERIDES (test code = 2232) 95 MG/DL HDL CHOLESTEROL (test code = 2220) 52 MG/DL CALC LDL CHOL (test code = 2237) 109 MG/DL RISK RATIO LDL/HDL (test code = 2.10 RATIO 2238) LIPID [id number] 00:00:00 Test Item Value Reference Range Interpretation Comments CHOLESTEROL (test code = 2210) 180 MG/DL TRIGLYCERIDES (test code = 2232) 95 MG/DL HDL CHOLESTEROL (test code = 2220) 52 MG/DL CALC LDL CHOL (test code = 2237) 109 MG/DL RISK RATIO LDL/HDL (test code = 2.10 RATIO 2238) COMPREHENSIVE METABOLIC [id number] 00:00:00 Test Item Value Reference Range Interpretation Comments GLUCOSE (test code = 2217) 90 MG/DL BUN (test code = 2208) 13 MG/DL CREATININE (test code = 2214) 1.18 MG/DL eGFR (2020 CKD-EPI) (test code 54 ML/MIN/1.73 = 45764) CALC BUN/CREAT (test code = 11 RATIO [...] code = 2219) 33 U/L COMPREHENSIVE METABOLIC [id number] 00:00:00 Test Item Value Reference Range Interpretation Comments GLUCOSE (test code = 2217) 90 MG/DL BUN (test code = 2208) 13 MG/DL CREATININE (test code = 2214) 1.18 MG/DL eGFR (2020 CKD-EPI) (test code 54 ML/MIN/1.73 = 12163) CALC BUN/CREAT (test code = 11 RATIO [...] code = 2219) 33 U/L CBC W/AUTO [id number] 00:00:00 Test Item Value Reference Range Interpretation [...] NUCLEATED RBCS (test code = 0.00 K/UL 86438) CBC W/AUTO [id number] 00:00:00 Test Item Value Reference Range Interpretation [...] NUCLEATED RBCS (test code = 0.00 K/UL 64024) CBC W/AUTO [id number] 00:00:00 Test Item Value Reference Range Interpretation [...] NUCLEATED RBCS (test code = 0.00 K/UL 76858) HEMOGLOBIN [id number] 00:00:00 Test Item Value Reference Range Interpretation Comments HEMOGLOBIN A1c (test code = 45600) 5.7 % HEMOGLOBIN [id number] 00:00:00 Test Item Value Reference Range Interpretation Comments HEMOGLOBIN A1c (test code = 91920) 5.7 % HEMOGLOBIN [id number] 00:00:00 Test Item Value Reference Range Interpretation Comments HEMOGLOBIN A1c (test code = 97854) 5.7 % LIPID [id number] 00:00:00 Test Item Value Reference Range Interpretation Comments CHOLESTEROL (test code = 2210) 180 MG/DL TRIGLYCERIDES (test code = 2232) 95 MG/DL HDL CHOLESTEROL (test code = 2220) 52 MG/DL CALC LDL CHOL (test code = 2237) 109 MG/DL RISK RATIO LDL/HDL (test code = 2.10 RATIO 2238) LIPID [id number] 00:00:00 Test Item Value Reference Range Interpretation Comments CHOLESTEROL (test code = 2210) 180 MG/DL TRIGLYCERIDES (test code = 2232) 95 MG/DL HDL CHOLESTEROL (test code = 2220) 52 MG/DL CALC LDL CHOL (test code = 2237) 109 MG/DL RISK RATIO LDL/HDL (test code = 2.10 RATIO 2238) COMPREHENSIVE METABOLIC [id number] 00:00:00 Test Item Value Reference Range Interpretation Comments GLUCOSE (test code = 2217) 90 MG/DL BUN (test code = 2208) 13 MG/DL CREATININE (test code = 2214) 1.18 MG/DL eGFR (2020 CKD-EPI) (test code 54 ML/MIN/1.73 = 51284) CALC BUN/CREAT (test code = 11 RATIO [...] code = 2219) 33 U/L COMPREHENSIVE METABOLIC [id number] 00:00:00 Test Item Value Reference Range Interpretation Comments GLUCOSE (test code = 2217) 90 MG/DL BUN (test code = 2208) 13 MG/DL CREATININE (test code = 2214) 1.18 MG/DL eGFR (2020 CKD-EPI) (test code 54 ML/MIN/1.73 = 72795) CALC BUN/CREAT (test code = 11 RATIO [...] code = 2219) 33 U/L CBC W/AUTO [id number] 00:00:00 Test Item Value Reference Range Interpretation [...] NUCLEATED RBCS (test code = 0.00 K/UL 21556) CBC W/AUTO [id number] 00:00:00 Test Item Value Reference Range Interpretation [...] NUCLEATED RBCS (test code = 0.00 K/UL 06000) CBC W/AUTO [id number] 00:00:00 Test Item Value Reference Range Interpretation [...] NUCLEATED RBCS (test code = 0.00 K/UL 66292) HEMOGLOBIN [id number] 00:00:00 Test Item Value Reference Range Interpretation Comments HEMOGLOBIN A1c (test code = 99871) 5.7 % HEMOGLOBIN [id number] 00:00:00 Test Item Value Reference Range Interpretation Comments HEMOGLOBIN A1c (test code = 11855) 5.7 % HEMOGLOBIN [id number] 00:00:00 Test Item Value Reference Range Interpretation Comments HEMOGLOBIN A1c (test code = 25153) 5.7 % LIPID [id number] 00:00:00 Test Item Value Reference Range Interpretation Comments CHOLESTEROL (test code = 2210) 180 MG/DL TRIGLYCERIDES (test code = 2232) 95 MG/DL HDL CHOLESTEROL (test code = 2220) 52 MG/DL CALC LDL CHOL (test code = 2237) 109 MG/DL RISK RATIO LDL/HDL (test code = 2.10 RATIO 2238) LIPID [id number] 00:00:00 Test Item Value Reference Range Interpretation Comments CHOLESTEROL (test code = 2210) 180 MG/DL TRIGLYCERIDES (test code = 2232) 95 MG/DL HDL CHOLESTEROL (test code = 2220) 52 MG/DL CALC LDL CHOL (test code = 2237) 109 MG/DL RISK RATIO LDL/HDL (test code = 2.10 RATIO 2238) COMPREHENSIVE METABOLIC [id number] 00:00:00 Test Item Value Reference Range Interpretation Comments GLUCOSE (test code = 2217) 90 MG/DL BUN (test code = 2208) 13 MG/DL CREATININE (test code = 2214) 1.18 MG/DL eGFR (2020 CKD-EPI) (test code 54 ML/MIN/1.73 = 35843) CALC BUN/CREAT (test code = 11 RATIO [...] code = 2219) 33 U/L COMPREHENSIVE METABOLIC [id number] 00:00:00 Test Item Value Reference Range Interpretation Comments GLUCOSE (test code = 2217) 90 MG/DL BUN (test code = 2208) 13 MG/DL CREATININE (test code = 2214) 1.18 MG/DL eGFR (2020 CKD-EPI) (test code 54 ML/MIN/1.73 = 76878) CALC BUN/CREAT (test code = 11 RATIO [...] code = 2219) 33 U/L CBC W/AUTO [id number] 00:00:00 Test Item Value Reference Range Interpretation [...] NUCLEATED RBCS (test code = 0.00 K/UL 38107) CBC W/AUTO [id number] 00:00:00 Test Item Value Reference Range Interpretation [...] NUCLEATED RBCS (test code = 0.00 K/UL 98270) CBC W/AUTO [id number] 00:00:00 Test Item Value Reference Range Interpretation [...] NUCLEATED RBCS (test code = 0.00 K/UL 95198) CBC W/AUTO [id number] 00:00:00 Test Item Value Reference Range Interpretation [...] NUCLEATED RBCS (test code = 0.00 K/UL 71987) HEMOGLOBIN [id number] 00:00:00 Test Item Value Reference Range Interpretation Comments HEMOGLOBIN A1c (test code = 93947) 5.7 % HEMOGLOBIN [id number] 00:00:00 Test Item Value Reference Range Interpretation Comments HEMOGLOBIN A1c (test code = 63531) 5.7 % HEMOGLOBIN [id number] 00:00:00 Test Item Value Reference Range Interpretation Comments HEMOGLOBIN A1c (test code = 34991) 5.7 % LIPID [id number] 00:00:00 Test Item Value Reference Range Interpretation Comments CHOLESTEROL (test code = 2210) 180 MG/DL TRIGLYCERIDES (test code = 2232) 95 MG/DL HDL CHOLESTEROL (test code = 2220) 52 MG/DL CALC LDL CHOL (test code = 2237) 109 MG/DL RISK RATIO LDL/HDL (test code = 2.10 RATIO 2238) LIPID [id number] 00:00:00 Test Item Value Reference Range Interpretation Comments CHOLESTEROL (test code = 2210) 180 MG/DL TRIGLYCERIDES (test code = 2232) 95 MG/DL HDL CHOLESTEROL (test code = 2220) 52 MG/DL CALC LDL CHOL (test code = 2237) 109 MG/DL RISK RATIO LDL/HDL (test code = 2.10 RATIO 2238) COMPREHENSIVE METABOLIC [id number] 00:00:00 Test Item Value Reference Range Interpretation Comments GLUCOSE (test code = 2217) 90 MG/DL BUN (test code = 2208) 13 MG/DL CREATININE (test code = 2214) 1.18 MG/DL eGFR (2020 CKD-EPI) (test code 54 ML/MIN/1.73 = 49259) CALC BUN/CREAT (test code = 11 RATIO [...] code = 2219) 33 U/L COMPREHENSIVE METABOLIC [id number] 00:00:00 Test Item Value Reference Range Interpretation Comments GLUCOSE (test code = 2217) 90 MG/DL BUN (test code = 2208) 13 MG/DL CREATININE (test code = 2214) 1.18 MG/DL eGFR (2020 CKD-EPI) (test code 54 ML/MIN/1.73 = 20036) CALC BUN/CREAT (test code = 11 RATIO 5) SODIUM (test code = 2231) 141 MEQ/L POTASSIUM (test code = 2228) 3.5 MEQ/L CHLORIDE (test code = 2215) 99 MEQ/L CARBON DIOXIDE (test code = 27 MEQ/L 2205) CALCIUM (test code = 2209) 10.2 MG/DL PROTEIN, TOTAL (test code = 7.2 G/DL 2228) ALBUMIN (test code = 220) 5.0 G/DL CALC GLOBULIN (test code = 2.2 G/DL 2239) CALC A/G RATIO (test code = 2.3 RATIO 2233) BILIRUBIN, TOTAL (test code = 0.5 MG/DL 2206) ALKALINE PHOSPHATASE (test 116 U/L code = 220) AST (test code = 2218) 47 U/L ALT (test code = 2219) 33 U/L CBC W/AUTO [id number] 00:00:00 Test Item Value Reference Range Interpretation [...] NUCLEATED RBCS (test code = 0.00 K/UL 12282) CBC W/AUTO [id number] 00:00:00 Test Item Value Reference Range Interpretation [...] NUCLEATED RBCS (test code = 0.00 K/UL 32789) HEMOGLOBIN [id number] 00:00:00 Test Item Value Reference Range Interpretation Comments HEMOGLOBIN A1c (test code = 42484) 5.7 % HEMOGLOBIN [id number] 00:00:00 Test Item Value Reference Range Interpretation Comments HEMOGLOBIN A1c (test code = 09918) 5.7 % HEMOGLOBIN [id number] 00:00:00 Test Item Value Reference Range Interpretation Comments HEMOGLOBIN A1c (test code = 67829) 5.7 % LIPID [id number] 00:00:00 Test Item Value Reference Range Interpretation Comments CHOLESTEROL (test code = 2210) 180 MG/DL TRIGLYCERIDES (test code = 2232) 95 MG/DL HDL CHOLESTEROL (test code = 2220) 52 MG/DL CALC LDL CHOL (test code = 2237) 109 MG/DL RISK RATIO LDL/HDL (test code = 2.10 RATIO 2238) LIPID [id number] 00:00:00 Test Item Value Reference Range Interpretation Comments CHOLESTEROL (test code = 2210) 180 MG/DL TRIGLYCERIDES (test code = 2232) 95 MG/DL HDL CHOLESTEROL (test code = 2220) 52 MG/DL CALC LDL CHOL (test code = 2237) 109 MG/DL RISK RATIO LDL/HDL (test code = 2.10 RATIO 2238) COMPREHENSIVE METABOLIC [id number] 00:00:00 Test Item Value Reference Range Interpretation Comments GLUCOSE (test code = 2217) 90 MG/DL BUN (test code = 2208) 13 MG/DL CREATININE (test code = 2214) 1.18 MG/DL eGFR (2020 CKD-EPI) (test code 54 ML/MIN/1.73 = 88472) CALC BUN/CREAT (test code = 11 RATIO [...] code = 2219) 33 U/L COMPREHENSIVE METABOLIC [id number] 00:00:00 Test Item Value Reference Range Interpretation Comments GLUCOSE (test code = 2217) 90 MG/DL BUN (test code = 2208) 13 MG/DL CREATININE (test code = 2214) 1.18 MG/DL eGFR (2020 CKD-EPI) (test code 54 ML/MIN/1.73 = 02627) CALC BUN/CREAT (test code = 11 RATIO [...] code = 2219) 33 U/L CBC W/AUTO [id number] 00:00:00 Test Item Value Reference Range Interpretation [...] NUCLEATED RBCS (test code = 0.00 K/UL 50684) CBC W/AUTO [id number] 00:00:00 Test Item Value Reference Range Interpretation [...] NUCLEATED RBCS (test code = 0.00 K/UL 30793) CBC W/AUTO [id number] 00:00:00 Test Item Value Reference Range Interpretation [...] NUCLEATED RBCS (test code = 0.00 K/UL 56250) HEMOGLOBIN [id number] 00:00:00 Test Item Value Reference Range Interpretation Comments HEMOGLOBIN A1c (test code = 11725) 5.7 % HEMOGLOBIN [id number] 00:00:00 Test Item Value Reference Range Interpretation Comments HEMOGLOBIN A1c (test code = 88191) 5.7 % HEMOGLOBIN [id number] 00:00:00 Test Item Value Reference Range Interpretation Comments HEMOGLOBIN A1c (test code = 81605) 5.7 % LIPID [id number] 00:00:00 Test Item Value Reference Range Interpretation Comments CHOLESTEROL (test code = 2210) 180 MG/DL TRIGLYCERIDES (test code = 2232) 95 MG/DL HDL CHOLESTEROL (test code = 2220) 52 MG/DL CALC LDL CHOL (test code = 2237) 109 MG/DL RISK RATIO LDL/HDL (test code = 2.10 RATIO 2238) LIPID [id number] 00:00:00 Test Item Value Reference Range Interpretation Comments CHOLESTEROL (test code = 2210) 180 MG/DL TRIGLYCERIDES (test code = 2232) 95 MG/DL HDL CHOLESTEROL (test code = 2220) 52 MG/DL CALC LDL CHOL (test code = 2237) 109 MG/DL RISK RATIO LDL/HDL (test code = 2.10 RATIO 2238) COMPREHENSIVE METABOLIC [id number] 00:00:00 Test Item Value Reference Range Interpretation Comments GLUCOSE (test code = 2217) 90 MG/DL BUN (test code = 2208) 13 MG/DL CREATININE (test code = 2214) 1.18 MG/DL eGFR (2020 CKD-EPI) (test code 54 ML/MIN/1.73 = 09105) CALC BUN/CREAT (test code = 11 RATIO [...] code = 2219) 33 U/L COMPREHENSIVE METABOLIC [id number] 00:00:00 Test Item Value Reference Range Interpretation Comments GLUCOSE (test code = 2217) 90 MG/DL BUN (test code = 2208) 13 MG/DL CREATININE (test code = 2214) 1.18 MG/DL eGFR (2020 CKD-EPI) (test code 54 ML/MIN/1.73 = 99639) CALC BUN/CREAT (test code = 11 RATIO [...] code = 2219) 33 U/L CBC W/AUTO [id number] 00:00:00 Test Item Value Reference Range Interpretation [...] NUCLEATED RBCS (test code = 0.00 K/UL 43942) CBC W/AUTO [id number] 00:00:00 Test Item Value Reference Range Interpretation [...] NUCLEATED RBCS (test code = 0.00 K/UL 94947) CBC W/AUTO [id number] 00:00:00 Test Item Value Reference Range Interpretation [...] NUCLEATED RBCS (test code = 0.00 K/UL 11645) HEMOGLOBIN [id number] 00:00:00 Test Item Value Reference Range Interpretation Comments HEMOGLOBIN A1c (test code = 32175) 5.7 % HEMOGLOBIN [id number] 00:00:00 Test Item Value Reference Range Interpretation Comments HEMOGLOBIN A1c (test code = 00620) 5.7 % HEMOGLOBIN [id number] 00:00:00 Test Item Value Reference Range Interpretation Comments HEMOGLOBIN A1c (test code = 40041) 5.7 % LIPID [id number] 00:00:00 Test Item Value Reference Range Interpretation Comments CHOLESTEROL (test code = 2210) 180 MG/DL TRIGLYCERIDES (test code = 2232) 95 MG/DL HDL CHOLESTEROL (test code = 2220) 52 MG/DL CALC LDL CHOL (test code = 2237) 109 MG/DL RISK RATIO LDL/HDL (test code = 2.10 RATIO 2238) LIPID [id number] 00:00:00 Test Item Value Reference Range Interpretation Comments CHOLESTEROL (test code = 2210) 180 MG/DL TRIGLYCERIDES (test code = 2232) 95 MG/DL HDL CHOLESTEROL (test code = 2220) 52 MG/DL CALC LDL CHOL (test code = 2237) 109 MG/DL RISK RATIO LDL/HDL (test code = 2.10 RATIO 2238) COMPREHENSIVE METABOLIC [id number] 00:00:00 Test Item Value Reference Range Interpretation Comments GLUCOSE (test code = 2217) 90 MG/DL BUN (test code = 2208) 13 MG/DL CREATININE (test code = 2214) 1.18 MG/DL eGFR (2020 CKD-EPI) (test code 54 ML/MIN/1.73 = 72912) CALC BUN/CREAT (test code = 11 RATIO 2235) SODIUM (test code = 2231) 141 MEQ/L POTASSIUM (test code = 2228) 3.5 MEQ/L CHLORIDE (test code = 2215) 99 MEQ/L CARBON DIOXIDE (test code = 27 MEQ/L 6) CALCIUM (test code = 2209) 10.2 MG/DL [...] code = 2219) 33 U/L COMPREHENSIVE METABOLIC [id number] 00:00:00 Test Item Value Reference Range Interpretation Comments GLUCOSE (test code = 2217) 90 MG/DL BUN (test code = 2208) 13 MG/DL CREATININE (test code = 2214) 1.18 MG/DL eGFR (2020 CKD-EPI) (test code 54 ML/MIN/1.73 = 36600) CALC BUN/CREAT (test code = 11 RATIO [...] code = 2219) 33 U/L CBC W/AUTO [id number] 00:00:00 Test Item Value Reference Range Interpretation [...] NUCLEATED RBCS (test code = 0.00 K/UL 51673) CBC W/AUTO [id number] 00:00:00 Test Item Value Reference Range Interpretation [...] NUCLEATED RBCS (test code = 0.00 K/UL 11337) VITAMIN D, 25 [id number] 00:00:00 Test Item Value Reference Range Interpretation Comments VITAMIN D, 25 OH (test code = 4958) 45 NG/ML VITAMIN D, 25 [id number] 00:00:00 Test Item Value Reference Range Interpretation Comments VITAMIN D, 25 OH (test code = 4958) 45 NG/ML VITAMIN D, 25 [id number] 00:00:00 Test Item Value Reference Range Interpretation Comments VITAMIN D, 25 OH (test code = 4958) 45 NG/ML VITAMIN D, 25 [id number] 00:00:00 Test Item Value Reference Range Interpretation Comments VITAMIN D, 25 OH (test code = 4958) 45 NG/ML VITAMIN D, 25 [id number] 00:00:00 Test Item Value Reference Range Interpretation Comments VITAMIN D, 25 OH (test code = 4958) 45 NG/ML VITAMIN D, 25 [id number] 00:00:00 Test Item Value Reference Range Interpretation Comments VITAMIN D, 25 OH (test code = 4958) 45 NG/ML VITAMIN D, 25 [id number] 00:00:00 Test Item Value Reference Range Interpretation Comments VITAMIN D, 25 OH (test code = 4958) 45 NG/ML VITAMIN D, 25 [id number] 00:00:00 Test Item Value Reference Range Interpretation Comments VITAMIN D, 25 OH (test code = 4958) 45 NG/ML VITAMIN D, 25 [id number] 00:00:00 Test Item Value Reference Range Interpretation Comments VITAMIN D, 25 OH (test code = 4958) 45 NG/ML VITAMIN D, 25 [id number] 00:00:00 Test Item Value Reference Range Interpretation Comments VITAMIN D, 25 OH (test code = 4958) 45 NG/ML VITAMIN D, 25 [id number] 00:00:00 Test Item Value Reference Range Interpretation Comments VITAMIN D, 25 OH (test code = 4958) 45 NG/ML VITAMIN D, 25 [id number] 00:00:00 Test Item Value Reference Range Interpretation Comments VITAMIN D, 25 OH (test code = 4958) 45 NG/ML VITAMIN D, 25 [id number] 00:00:00 Test Item Value Reference Range Interpretation Comments VITAMIN D, 25 OH (test code = 4958) 45 NG/ML VITAMIN D, 25 [id number] 00:00:00 Test Item Value Reference Range Interpretation Comments VITAMIN D, 25 OH (test code = 4958) 45 NG/ML RISPERIDONE, [id number] 00:00:00 Test Item Value Reference Range Interpretation Comments RISPERIDONE (test code = 09227) <5.0 ng/mL 9-OH RISPERIDONE (test code = <5.0 ng/mL 96637) RISPERIDONE + 9-OH RISPER (test <10.0 ng/mL code = 28953) RISPERIDONE, [id number] 00:00:00 Test Item Value Reference Range Interpretation Comments RISPERIDONE (test code = 92972) <5.0 ng/mL 9-OH RISPERIDONE (test code = <5.0 ng/mL 24921) RISPERIDONE + 9-OH RISPER (test <10.0 ng/mL code = 99763) RISPERIDONE, [id number] 00:00:00 Test Item Value Reference Range Interpretation Comments RISPERIDONE (test code = 19692) <5.0 ng/mL 9-OH RISPERIDONE (test code = <5.0 ng/mL 91460) RISPERIDONE + 9-OH RISPER (test <10.0 ng/mL code = 57440) RISPERIDONE, [id number] 00:00:00 Test Item Value Reference Range Interpretation Comments RISPERIDONE (test code = 83441) <5.0 ng/mL 9-OH RISPERIDONE (test code = <5.0 ng/mL 45829) RISPERIDONE + 9-OH RISPER (test <10.0 ng/mL code = 60134) RISPERIDONE, [id number] 00:00:00 Test Item Value Reference Range Interpretation Comments RISPERIDONE (test code = 30006) <5.0 ng/mL 9-OH RISPERIDONE (test code = <5.0 ng/mL 91086) RISPERIDONE + 9-OH RISPER (test <10.0 ng/mL code = 70234) RISPERIDONE, [id number] 00:00:00 Test Item Value Reference Range Interpretation Comments RISPERIDONE (test code = 85060) <5.0 ng/mL 9-OH RISPERIDONE (test code = <5.0 ng/mL 59231) RISPERIDONE + 9-OH RISPER (test <10.0 ng/mL code = 67494) RISPERIDONE, [id number] 00:00:00 Test Item Value Reference Range Interpretation Comments RISPERIDONE (test code = 70045) <5.0 ng/mL 9-OH RISPERIDONE (test code = <5.0 ng/mL 32276) RISPERIDONE + 9-OH RISPER (test <10.0 ng/mL code = 73637) RISPERIDONE, [id number] 00:00:00 Test Item Value Reference Range Interpretation Comments RISPERIDONE (test code = 58100) <5.0 ng/mL 9-OH RISPERIDONE (test code = <5.0 ng/mL 49521) RISPERIDONE + 9-OH RISPER (test <10.0 ng/mL code = 99102) RISPERIDONE, [id number] 00:00:00 Test Item Value Reference Range Interpretation Comments RISPERIDONE (test code = 71191) <5.0 ng/mL 9-OH RISPERIDONE (test code = <5.0 ng/mL 37728) RISPERIDONE + 9-OH RISPER (test <10.0 ng/mL code = 49010) RISPERIDONE, [id number] 00:00:00 Test Item Value Reference Range Interpretation Comments RISPERIDONE (test code = 36928) <5.0 ng/mL 9-OH RISPERIDONE (test code = <5.0 ng/mL 58840) RISPERIDONE + 9-OH RISPER (test <10.0 ng/mL code = 79169) RISPERIDONE, [id number] 00:00:00 Test Item Value Reference Range Interpretation Comments RISPERIDONE (test code = 69694) <5.0 ng/mL 9-OH RISPERIDONE (test code = <5.0 ng/mL 48669) RISPERIDONE + 9-OH RISPER (test <10.0 ng/mL code = 44942) RISPERIDONE, [id number] 00:00:00 Test Item Value Reference Range Interpretation Comments RISPERIDONE (test code = 51411) <5.0 ng/mL 9-OH RISPERIDONE (test code = <5.0 ng/mL 74266) RISPERIDONE + 9-OH RISPER (test <10.0 ng/mL code = 58272) RISPERIDONE, [id number] 00:00:00 Test Item Value Reference Range Interpretation Comments RISPERIDONE (test code = 54675) <5.0 ng/mL 9-OH RISPERIDONE (test code = <5.0 ng/mL 32557) RISPERIDONE + 9-OH RISPER (test <10.0 ng/mL code = 69432) RISPERIDONE, [id number] 00:00:00 Test Item Value Reference Range Interpretation Comments RISPERIDONE (test code = 20900) <5.0 ng/mL 9-OH RISPERIDONE (test code = <5.0 ng/mL 86599) RISPERIDONE + 9-OH RISPER (test <10.0 ng/mL code = 78633) [id number] 00:00:00 Test Item Value Reference Range Interpretation Comments LEVETIRACETAM (test code = 05306) 10.1 mcg/mL [id number] 00:00:00 Test Item Value Reference Range Interpretation Comments LEVETIRACETAM (test code = 23455) 10.1 mcg/mL [id number] 00:00:00 Test Item Value Reference Range Interpretation Comments LEVETIRACETAM (test code = 32802) 10.1 mcg/mL [id number] 00:00:00 Test Item Value Reference Range Interpretation Comments LEVETIRACETAM (test code = 48859) 10.1 mcg/mL [id number] 00:00:00 Test Item Value Reference Range Interpretation Comments LEVETIRACETAM (test code = 64858) 10.1 mcg/mL [id number] 00:00:00 Test Item Value Reference Range Interpretation Comments LEVETIRACETAM (test code = 84143) 10.1 mcg/mL [id number] 00:00:00 Test Item Value Reference Range Interpretation Comments LEVETIRACETAM (test code = 07624) 10.1 mcg/mL [id number] 00:00:00 Test Item Value Reference Range Interpretation Comments LEVETIRACETAM (test code = 57693) 10.1 mcg/mL [id number] 00:00:00 Test Item Value Reference Range Interpretation Comments LEVETIRACETAM (test code = 58957) 10.1 mcg/mL [id number] 00:00:00 Test Item Value Reference Range Interpretation Comments LEVETIRACETAM (test code = 57256) 10.1 mcg/mL [id number] 00:00:00 Test Item Value Reference Range Interpretation Comments LEVETIRACETAM (test code = 54494) 10.1 mcg/mL [id number] 00:00:00 Test Item Value Reference Range Interpretation Comments LEVETIRACETAM (test code = 15831) 10.1 mcg/mL [id number] 00:00:00 Test Item Value Reference Range Interpretation Comments LEVETIRACETAM (test code = 07457) 10.1 mcg/mL [id number] 00:00:00 Test Item Value Reference Range Interpretation Comments LEVETIRACETAM (test code = 29487) 10.1 mcg/mL HEMOGLOBIN [id number] 00:00:00 Test Item Value Reference Range Interpretation Comments HEMOGLOBIN A1c (test code = 38588) 5.9 % HEMOGLOBIN [id number] 00:00:00 Test Item Value Reference Range Interpretation Comments HEMOGLOBIN A1c (test code = 27474) 5.9 % HEMOGLOBIN [id number] 00:00:00 Test Item Value Reference Range Interpretation Comments HEMOGLOBIN A1c (test code = 28188) 5.9 % ARCHEL TITER AND PATTERN [REFLEX]2020-09-02 00:00:00 Test Item Value Reference Range Interpretation Comments PATTERN (test code = HOMOGENEOUS 44432) RACHEL TITER (test code = 1:320 TITER 3550) PATTERN 2 (test code = NOT DETECTED 95193) RACHEL TITER 2 (test code = NOT DETECTED TITER 02028) PATTERN 3 (test code = NOT DETECTED 51825) RACHEL TITER 3 (test code = NOT DETECTED TITER 53948) METHOD (test code = 21736) (NOTE) HEMOGLOBIN [id number] 00:00:00 Test Item Value Reference Range Interpretation Comments HEMOGLOBIN A1c (test code = 84407) 5.9 % HEMOGLOBIN [id number] 00:00:00 Test Item Value Reference Range Interpretation Comments HEMOGLOBIN A1c (test code = 30031) 5.9 % HEMOGLOBIN [id number] 00:00:00 Test Item Value Reference Range Interpretation Comments HEMOGLOBIN A1c (test code = 46230) 5.9 % RACHEL TITER AND PATTERN [REFLEX]2020-09-02 00:00:00 Test Item Value Reference Range Interpretation Comments PATTERN (test code = HOMOGENEOUS 59443) RACHEL TITER (test code = 1:320 TITER 3550) PATTERN 2 (test code = NOT DETECTED 62464) RACHEL TITER 2 (test code = NOT DETECTED TITER 74212) PATTERN 3 (test code = NOT DETECTED 29176) RACHEL TITER 3 (test code = NOT DETECTED TITER 35138) METHOD (test code = 11625) (NOTE) HEMOGLOBIN [id number] 00:00:00 Test Item Value Reference Range Interpretation Comments HEMOGLOBIN A1c (test code = 88435) 5.9 % HEMOGLOBIN [id number] 00:00:00 Test Item Value Reference Range Interpretation Comments HEMOGLOBIN A1c (test code = 29555) 5.9 % HEMOGLOBIN [id number] 00:00:00 Test Item Value Reference Range Interpretation Comments HEMOGLOBIN A1c (test code = 01283) 5.9 % RACHEL TITER AND PATTERN [REFLEX]2020-09-02 00:00:00 Test Item Value Reference Range Interpretation Comments PATTERN (test code = HOMOGENEOUS 40988) RACHEL TITER (test code = 1:320 TITER 3550) PATTERN 2 (test code = NOT DETECTED 12580) RACHEL TITER 2 (test code = NOT DETECTED TITER 20984) PATTERN 3 (test code = NOT DETECTED 66530) RACHEL TITER 3 (test code = NOT DETECTED TITER 03765) METHOD (test code = 08323) (NOTE) HEMOGLOBIN [id number] 00:00:00 Test Item Value Reference Range Interpretation Comments HEMOGLOBIN A1c (test code = 19402) 5.9 % HEMOGLOBIN [id number] 00:00:00 Test Item Value Reference Range Interpretation Comments HEMOGLOBIN A1c (test code = 89830) 5.9 % HEMOGLOBIN [id number] 00:00:00 Test Item Value Reference Range Interpretation Comments HEMOGLOBIN A1c (test code = 00153) 5.9 % RACHEL TITER AND PATTERN [REFLEX]2020-09-02 00:00:00 Test Item Value Reference Range Interpretation Comments PATTERN (test code = HOMOGENEOUS 58609) RACHEL TITER (test code = 1:320 TITER 3550) PATTERN 2 (test code = NOT DETECTED 61751) RACHEL TITER 2 (test code = NOT DETECTED TITER 24806) PATTERN 3 (test code = NOT DETECTED 41865) RACHEL TITER 3 (test code = NOT DETECTED TITER 22690) METHOD (test code = 44688) (NOTE) HEMOGLOBIN [id number] 00:00:00 Test Item Value Reference Range Interpretation Comments HEMOGLOBIN A1c (test code = 34453) 5.9 % HEMOGLOBIN [id number] 00:00:00 Test Item Value Reference Range Interpretation Comments HEMOGLOBIN A1c (test code = 29389) 5.9 % HEMOGLOBIN [id number] 00:00:00 Test Item Value Reference Range Interpretation Comments HEMOGLOBIN A1c (test code = 17669) 5.9 % RACHEL TITER AND PATTERN [REFLEX]2020-09-02 00:00:00 Test Item Value Reference Range Interpretation Comments PATTERN (test code = HOMOGENEOUS 76987) RACHEL TITER (test code = 1:320 TITER 3550) PATTERN 2 (test code = NOT DETECTED 04882) RACHEL TITER 2 (test code = NOT DETECTED TITER 12430) PATTERN 3 (test code = NOT DETECTED 94737) RACHEL TITER 3 (test code = NOT DETECTED TITER 76982) METHOD (test code = 63181) (NOTE) HEMOGLOBIN [id number] 00:00:00 Test Item Value Reference Range Interpretation Comments HEMOGLOBIN A1c (test code = 20530) 5.9 % HEMOGLOBIN [id number] 00:00:00 Test Item Value Reference Range Interpretation Comments HEMOGLOBIN A1c (test code = 18569) 5.9 % HEMOGLOBIN [id number] 00:00:00 Test Item Value Reference Range Interpretation Comments HEMOGLOBIN A1c (test code = 64471) 5.9 % RACHEL TITER AND PATTERN [REFLEX]2020-09-02 00:00:00 Test Item Value Reference Range Interpretation Comments PATTERN (test code = HOMOGENEOUS 03550) RACHEL TITER (test code = 1:320 TITER 3550) PATTERN 2 (test code = NOT DETECTED 42083) RACHEL TITER 2 (test code = NOT DETECTED TITER 22439) PATTERN 3 (test code = NOT DETECTED 59604) RACHEL TITER 3 (test code = NOT DETECTED TITER 54002) METHOD (test code = 23028) (NOTE) HEMOGLOBIN [id number] 00:00:00 Test Item Value Reference Range Interpretation Comments HEMOGLOBIN A1c (test code = 84074) 5.9 % HEMOGLOBIN [id number] 00:00:00 Test Item Value Reference Range Interpretation Comments HEMOGLOBIN A1c (test code = 08616) 5.9 % HEMOGLOBIN [id number] 00:00:00 Test Item Value Reference Range Interpretation Comments HEMOGLOBIN A1c (test code = 22978) 5.9 % RACHEL TITER AND PATTERN [REFLEX]2020-09-02 00:00:00 Test Item Value Reference Range Interpretation Comments PATTERN (test code = HOMOGENEOUS 78205) RACHEL TITER (test code = 1:320 TITER 3550) PATTERN 2 (test code = NOT DETECTED 63189) RACHEL TITER 2 (test code = NOT DETECTED TITER 78195) PATTERN 3 (test code = NOT DETECTED 80486) RACHEL TITER 3 (test code = NOT DETECTED TITER 66547) METHOD (test code = 89278) (NOTE) [id number] 00:00:00 Test Item Value Reference Range Interpretation Comments TSH, THIRD GENERATION (test code 0.501 UIU/ML = 2821) COMPREHENSIVE METABOLIC [id number] 00:00:00 Test Item Value Reference Range Interpretation Comments GLUCOSE (test code = 2217) 86 MG/DL BUN (test code = 2208) 14 MG/DL CREATININE (test code = 2214) 1.03 MG/DL eGFR AMER. (test code 70 ML/MIN/1.73 = 87652) eGFR NON- AMER. (test 60 ML/MIN/1.73 code = 60285) CALC BUN/CREAT (test code = 14 RATIO [...] code = 2219) 34 U/L COMPREHENSIVE METABOLIC [id number] 00:00:00 Test Item Value Reference Range Interpretation Comments GLUCOSE (test code = 2217) 86 MG/DL BUN (test code = 2208) 14 MG/DL CREATININE (test code = 2214) 1.03 MG/DL eGFR AMER. (test code 70 ML/MIN/1.73 = 47812) eGFR NON- AMER. (test 60 ML/MIN/1.73 code = 89286) CALC BUN/CREAT (test code = 14 RATIO [...] code = 2219) 34 U/L CBC W/AUTO [id number] 00:00:00 Test Item Value Reference Range Interpretation [...] NUCLEATED RBCS (test code = 0.00 K/UL 95992) CBC W/AUTO [id number] 00:00:00 Test Item Value Reference Range Interpretation [...] NUCLEATED RBCS (test code = 0.00 K/UL 44086) CBC W/AUTO [id number] 00:00:00 Test Item Value Reference Range Interpretation [...] NUCLEATED RBCS (test code = 0.00 K/UL 03275) RHEUMATOID FACTOR, [id number] 00:00:00 Test Item Value Reference Range Interpretation Comments RHEUMATOID FACTOR, QUANT (test code <10 IU/ML = 3502) RHEUMATOID FACTOR, [id number] 00:00:00 Test Item Value Reference Range Interpretation Comments RHEUMATOID FACTOR, QUANT (test code <10 IU/ML = 3502) RHEUMATOID FACTOR, [id number] 00:00:00 Test Item Value Reference Range Interpretation Comments RHEUMATOID FACTOR, QUANT (test code <10 IU/ML = 3502) C-REACTIVE [id number] 00:00:00 Test Item Value Reference Range Interpretation Comments C-REACTIVE PROTEIN (test code = <0.3 MG/DL 3513) C-REACTIVE [id number] 00:00:00 Test Item Value Reference Range Interpretation Comments C-REACTIVE PROTEIN (test code = <0.3 MG/DL 3513) RACHEL (ANTI-NUCLEAR AB) WITH REFLEX [id number] 00:00:00 Test Item Value Reference Range Interpretation Comments ANTI-NUCLEAR ANTIBODIES (test code = POSITIVE 3506) RACHEL (ANTI-NUCLEAR AB) WITH REFLEX [id number] 00:00:00 Test Item Value Reference Range Interpretation Comments ANTI-NUCLEAR ANTIBODIES (test code = POSITIVE 3506) SEDIMENTATION [id number] 00:00:00 Test Item Value Reference Range Interpretation Comments SEDIMENTATION RATE (test code = 5 MM/HOUR 1017) SEDIMENTATION [id number] 00:00:00 Test Item Value Reference Range Interpretation Comments SEDIMENTATION RATE (test code = 5 MM/HOUR 1017) URIC [id number] 00:00:00 Test Item Value Reference Range Interpretation Comments URIC ACID (test code = 2233) 4.9 MG/DL URIC [id number] 00:00:00 Test Item Value Reference Range Interpretation Comments URIC ACID (test code = 2233) 4.9 MG/DL [id number] 00:00:00 Test Item Value Reference Range Interpretation Comments TSH, THIRD GENERATION (test code 0.501 UIU/ML = 2821) [id number] 00:00:00 Test Item Value Reference Range Interpretation Comments TSH, THIRD GENERATION (test code 0.501 UIU/ML = 2821) [id number] 00:00:00 Test Item Value Reference Range Interpretation Comments TSH, THIRD GENERATION (test code 0.501 UIU/ML = 2821) COMPREHENSIVE METABOLIC [id number] 00:00:00 Test Item Value Reference Range Interpretation Comments GLUCOSE (test code = 2217) 86 MG/DL BUN (test code = 2208) 14 MG/DL CREATININE (test code = 2214) 1.03 MG/DL eGFR AMER. (test code 70 ML/MIN/1.73 = 72877) eGFR NON- AMER. (test 60 ML/MIN/1.73 code = 61840) CALC BUN/CREAT (test code = 14 RATIO [...] ALKALINE PHOSPHATASE (test 112 U/L code = 220) AST (test code = 2218) 44 U/L ALT (test code = 2219) 34 U/L COMPREHENSIVE METABOLIC [id number] 00:00:00 Test Item Value Reference Range Interpretation Comments GLUCOSE (test code = 2217) 86 MG/DL BUN (test code = 2208) 14 MG/DL CREATININE (test code = 2214) 1.03 MG/DL eGFR AMER. (test code 70 ML/MIN/1.73 = 69429) eGFR NON- AMER. (test 60 ML/MIN/1.73 code = 73680) CALC BUN/CREAT (test code = 14 RATIO [...] code = 2219) 34 U/L CBC W/AUTO [id number] 00:00:00 Test Item Value Reference Range Interpretation [...] NUCLEATED RBCS (test code = 0.00 K/UL 88885) CBC W/AUTO [id number] 00:00:00 Test Item Value Reference Range Interpretation [...] NUCLEATED RBCS (test code = 0.00 K/UL 82924) CBC W/AUTO [id number] 00:00:00 Test Item Value Reference Range Interpretation [...] NUCLEATED RBCS (test code = 0.00 K/UL 75253) RHEUMATOID FACTOR, [id number] 00:00:00 Test Item Value Reference Range Interpretation Comments RHEUMATOID FACTOR, QUANT (test code <10 IU/ML = 3502) RHEUMATOID FACTOR, [id number] 00:00:00 Test Item Value Reference Range Interpretation Comments RHEUMATOID FACTOR, QUANT (test code <10 IU/ML = 3502) RHEUMATOID FACTOR, [id number] 00:00:00 Test Item Value Reference Range Interpretation Comments RHEUMATOID FACTOR, QUANT (test code <10 IU/ML = 3502) C-REACTIVE [id number] 00:00:00 Test Item Value Reference Range Interpretation Comments C-REACTIVE PROTEIN (test code = <0.3 MG/DL 3513) C-REACTIVE [id number] 00:00:00 Test Item Value Reference Range Interpretation Comments C-REACTIVE PROTEIN (test code = <0.3 MG/DL 3513) RACHEL (ANTI-NUCLEAR AB) WITH REFLEX [id number] 00:00:00 Test Item Value Reference Range Interpretation Comments ANTI-NUCLEAR ANTIBODIES (test code = POSITIVE 3506) RACHEL (ANTI-NUCLEAR AB) WITH REFLEX [id number] 00:00:00 Test Item Value Reference Range Interpretation Comments ANTI-NUCLEAR ANTIBODIES (test code = POSITIVE 3506) SEDIMENTATION [id number] 00:00:00 Test Item Value Reference Range Interpretation Comments SEDIMENTATION RATE (test code = 5 MM/HOUR 1017) SEDIMENTATION [id number] 00:00:00 Test Item Value Reference Range Interpretation Comments SEDIMENTATION RATE (test code = 5 MM/HOUR 1017) URIC [id number] 00:00:00 Test Item Value Reference Range Interpretation Comments URIC ACID (test code = 2233) 4.9 MG/DL URIC [id number] 00:00:00 Test Item Value Reference Range Interpretation Comments URIC ACID (test code = 2233) 4.9 MG/DL [id number] 00:00:00 Test Item Value Reference Range Interpretation Comments TSH, THIRD GENERATION (test code 0.501 UIU/ML = 2821) [id number] 00:00:00 Test Item Value Reference Range Interpretation Comments TSH, THIRD GENERATION (test code 0.501 UIU/ML = 2821) [id number] 00:00:00 Test Item Value Reference Range Interpretation Comments TSH, THIRD GENERATION (test code 0.501 UIU/ML = 2821) COMPREHENSIVE METABOLIC [id number] 00:00:00 Test Item Value Reference Range Interpretation Comments GLUCOSE (test code = 2217) 86 MG/DL BUN (test code = 2208) 14 MG/DL CREATININE (test code = 2214) 1.03 MG/DL eGFR AMER. (test code 70 ML/MIN/1.73 = 79442) eGFR NON- AMER. (test 60 ML/MIN/1.73 code = 28507) CALC BUN/CREAT (test code = 14 RATIO [...] code = 2219) 34 U/L COMPREHENSIVE METABOLIC [id number] 00:00:00 Test Item Value Reference Range Interpretation Comments GLUCOSE (test code = 2217) 86 MG/DL BUN (test code = 2208) 14 MG/DL CREATININE (test code = 2214) 1.03 MG/DL eGFR AMER. (test code 70 ML/MIN/1.73 = 34872) eGFR NON- AMER. (test 60 ML/MIN/1.73 code = 03472) CALC BUN/CREAT (test code = 14 RATIO [...] code = 2219) 34 U/L CBC W/AUTO [id number] 00:00:00 Test Item Value Reference Range Interpretation [...] NUCLEATED RBCS (test code = 0.00 K/UL 99655) CBC W/AUTO [id number] 00:00:00 Test Item Value Reference Range Interpretation [...] NUCLEATED RBCS (test code = 0.00 K/UL 27151) CBC W/AUTO [id number] 00:00:00 Test Item Value Reference Range Interpretation [...] NUCLEATED RBCS (test code = 0.00 K/UL 79520) RHEUMATOID FACTOR, [id number] 00:00:00 Test Item Value Reference Range Interpretation Comments RHEUMATOID FACTOR, QUANT (test code <10 IU/ML = 3502) RHEUMATOID FACTOR, [id number] 00:00:00 Test Item Value Reference Range Interpretation Comments RHEUMATOID FACTOR, QUANT (test code <10 IU/ML = 3502) RHEUMATOID FACTOR, [id number] 00:00:00 Test Item Value Reference Range Interpretation Comments RHEUMATOID FACTOR, QUANT (test code <10 IU/ML = 3502) C-REACTIVE [id number] 00:00:00 Test Item Value Reference Range Interpretation Comments C-REACTIVE PROTEIN (test code = <0.3 MG/DL 3513) C-REACTIVE [id number] 00:00:00 Test Item Value Reference Range Interpretation Comments C-REACTIVE PROTEIN (test code = <0.3 MG/DL 3513) RACHEL (ANTI-NUCLEAR AB) WITH REFLEX [id number] 00:00:00 Test Item Value Reference Range Interpretation Comments ANTI-NUCLEAR ANTIBODIES (test code = POSITIVE 3506) RACHEL (ANTI-NUCLEAR AB) WITH REFLEX [id number] 00:00:00 Test Item Value Reference Range Interpretation Comments ANTI-NUCLEAR ANTIBODIES (test code = POSITIVE 3506) SEDIMENTATION [id number] 00:00:00 Test Item Value Reference Range Interpretation Comments SEDIMENTATION RATE (test code = 5 MM/HOUR 1017) SEDIMENTATION [id number] 00:00:00 Test Item Value Reference Range Interpretation Comments SEDIMENTATION RATE (test code = 5 MM/HOUR 1017) URIC [id number] 00:00:00 Test Item Value Reference Range Interpretation Comments URIC ACID (test code = 2233) 4.9 MG/DL URIC [id number] 00:00:00 Test Item Value Reference Range Interpretation Comments URIC ACID (test code = 2233) 4.9 MG/DL [id number] 00:00:00 Test Item Value Reference Range Interpretation Comments TSH, THIRD GENERATION (test code 0.501 UIU/ML = 2821) [id number] 00:00:00 Test Item Value Reference Range Interpretation Comments TSH, THIRD GENERATION (test code 0.501 UIU/ML = 2821) [id number] 00:00:00 Test Item Value Reference Range Interpretation Comments TSH, THIRD GENERATION (test code 0.501 UIU/ML = 2821) [id number] 00:00:00 Test Item Value Reference Range Interpretation Comments TSH, THIRD GENERATION (test code 0.501 UIU/ML = 2821) [id number] 00:00:00 Test Item Value Reference Range Interpretation Comments TSH, THIRD GENERATION (test code 0.501 UIU/ML = 2821) COMPREHENSIVE METABOLIC [id number] 00:00:00 Test Item Value Reference Range Interpretation Comments GLUCOSE (test code = 2217) 86 MG/DL BUN (test code = 2208) 14 MG/DL CREATININE (test code = 2214) 1.03 MG/DL eGFR AMER. (test code 70 ML/MIN/1.73 = 13794) eGFR NON- AMER. (test 60 ML/MIN/1.73 code = 06105) CALC BUN/CREAT (test code = 14 RATIO [...] ALT (test code = 2219) 34 U/L [id number] 00:00:00 Test Item Value Reference Range Interpretation Comments TSH, THIRD GENERATION (test code 0.501 UIU/ML = 2821) COMPREHENSIVE METABOLIC [id number] 00:00:00 Test Item Value Reference Range Interpretation Comments GLUCOSE (test code = 2217) 86 MG/DL BUN (test code = 2208) 14 MG/DL CREATININE (test code = 2214) 1.03 MG/DL eGFR AMER. (test code 70 ML/MIN/1.73 = 43243) eGFR NON- AMER. (test 60 ML/MIN/1.73 code = 35864) CALC BUN/CREAT (test code = 14 RATIO [...] code = 2219) 34 U/L CBC W/AUTO [id number] 00:00:00 Test Item Value Reference Range Interpretation [...] NUCLEATED RBCS (test code = 0.00 K/UL 04607) CBC W/AUTO [id number] 00:00:00 Test Item Value Reference Range Interpretation [...] NUCLEATED RBCS (test code = 0.00 K/UL 94478) CBC W/AUTO [id number] 00:00:00 Test Item Value Reference Range Interpretation [...] NUCLEATED RBCS (test code = 0.00 K/UL 22295) RHEUMATOID FACTOR, [id number] 00:00:00 Test Item Value Reference Range Interpretation Comments RHEUMATOID FACTOR, QUANT (test code <10 IU/ML = 3502) RHEUMATOID FACTOR, [id number] 00:00:00 Test Item Value Reference Range Interpretation Comments RHEUMATOID FACTOR, QUANT (test code <10 IU/ML = 3502) RHEUMATOID FACTOR, [id number] 00:00:00 Test Item Value Reference Range Interpretation Comments RHEUMATOID FACTOR, QUANT (test code <10 IU/ML = 3502) C-REACTIVE [id number] 00:00:00 Test Item Value Reference Range Interpretation Comments C-REACTIVE PROTEIN (test code = <0.3 MG/DL 3513) C-REACTIVE [id number] 00:00:00 Test Item Value Reference Range Interpretation Comments C-REACTIVE PROTEIN (test code = <0.3 MG/DL 3513) RACHEL (ANTI-NUCLEAR AB) WITH REFLEX [id number] 00:00:00 Test Item Value Reference Range Interpretation Comments ANTI-NUCLEAR ANTIBODIES (test code = POSITIVE 3506) RACHEL (ANTI-NUCLEAR AB) WITH REFLEX [id number] 00:00:00 Test Item Value Reference Range Interpretation Comments ANTI-NUCLEAR ANTIBODIES (test code = POSITIVE 3506) SEDIMENTATION [id number] 00:00:00 Test Item Value Reference Range Interpretation Comments SEDIMENTATION RATE (test code = 5 MM/HOUR 1017) SEDIMENTATION [id number] 00:00:00 Test Item Value Reference Range Interpretation Comments SEDIMENTATION RATE (test code = 5 MM/HOUR 1017) URIC [id number] 00:00:00 Test Item Value Reference Range Interpretation Comments URIC ACID (test code = 2233) 4.9 MG/DL URIC [id number] 00:00:00 Test Item Value Reference Range Interpretation Comments URIC ACID (test code = 2233) 4.9 MG/DL COMPREHENSIVE METABOLIC [id number] 00:00:00 Test Item Value Reference Range Interpretation Comments GLUCOSE (test code = 2217) 86 MG/DL BUN (test code = 2208) 14 MG/DL CREATININE (test code = 2214) 1.03 MG/DL eGFR AMER. (test code 70 ML/MIN/1.73 = 71000) eGFR NON- AMER. (test 60 ML/MIN/1.73 code = 21642) CALC BUN/CREAT (test code = 14 RATIO [...] code = 2219) 34 U/L COMPREHENSIVE METABOLIC [id number] 00:00:00 Test Item Value Reference Range Interpretation Comments GLUCOSE (test code = 2217) 86 MG/DL BUN (test code = 2208) 14 MG/DL CREATININE (test code = 2214) 1.03 MG/DL eGFR AMER. (test code 70 ML/MIN/1.73 = 92511) eGFR NON- AMER. (test 60 ML/MIN/1.73 code = 23650) CALC BUN/CREAT (test code = 14 RATIO [...] code = 2219) 34 U/L CBC W/AUTO [id number] 00:00:00 Test Item Value Reference Range Interpretation [...] NUCLEATED RBCS (test code = 0.00 K/UL 10365) CBC W/AUTO [id number] 00:00:00 Test Item Value Reference Range Interpretation [...] NUCLEATED RBCS (test code = 0.00 K/UL 43244) CBC W/AUTO [id number] 00:00:00 Test Item Value Reference Range Interpretation [...] NUCLEATED RBCS (test code = 0.00 K/UL 19104) RHEUMATOID FACTOR, [id number] 00:00:00 Test Item Value Reference Range Interpretation Comments RHEUMATOID FACTOR, QUANT (test code <10 IU/ML = 3502) RHEUMATOID FACTOR, [id number] 00:00:00 Test Item Value Reference Range Interpretation Comments RHEUMATOID FACTOR, QUANT (test code <10 IU/ML = 3502) RHEUMATOID FACTOR, [id number] 00:00:00 Test Item Value Reference Range Interpretation Comments RHEUMATOID FACTOR, QUANT (test code <10 IU/ML = 3502) C-REACTIVE [id number] 00:00:00 Test Item Value Reference Range Interpretation Comments C-REACTIVE PROTEIN (test code = <0.3 MG/DL 3513) C-REACTIVE [id number] 00:00:00 Test Item Value Reference Range Interpretation Comments C-REACTIVE PROTEIN (test code = <0.3 MG/DL 3513) RACHEL (ANTI-NUCLEAR AB) WITH REFLEX [id number] 00:00:00 Test Item Value Reference Range Interpretation Comments ANTI-NUCLEAR ANTIBODIES (test code = POSITIVE 3506) RACHEL (ANTI-NUCLEAR AB) WITH REFLEX [id number] 00:00:00 Test Item Value Reference Range Interpretation Comments ANTI-NUCLEAR ANTIBODIES (test code = POSITIVE 3506) SEDIMENTATION [id number] 00:00:00 Test Item Value Reference Range Interpretation Comments SEDIMENTATION RATE (test code = 5 MM/HOUR 1017) SEDIMENTATION [id number] 00:00:00 Test Item Value Reference Range Interpretation Comments SEDIMENTATION RATE (test code = 5 MM/HOUR 1017) URIC [id number] 00:00:00 Test Item Value Reference Range Interpretation Comments URIC ACID (test code = 2233) 4.9 MG/DL URIC [id number] 00:00:00 Test Item Value Reference Range Interpretation Comments URIC ACID (test code = 2233) 4.9 MG/DL [id number] 00:00:00 Test Item Value Reference Range Interpretation Comments TSH, THIRD GENERATION (test code 0.501 UIU/ML = 2821) [id number] 00:00:00 Test Item Value Reference Range Interpretation Comments TSH, THIRD GENERATION (test code 0.501 UIU/ML = 2821) [id number] 00:00:00 Test Item Value Reference Range Interpretation Comments TSH, THIRD GENERATION (test code 0.501 UIU/ML = 2821) COMPREHENSIVE METABOLIC [id number] 00:00:00 Test Item Value Reference Range Interpretation Comments GLUCOSE (test code = 2217) 86 MG/DL BUN (test code = 2208) 14 MG/DL CREATININE (test code = 2214) 1.03 MG/DL eGFR AMER. (test code 70 ML/MIN/1.73 = 55993) eGFR NON- AMER. (test 60 ML/MIN/1.73 code = 36874) CALC BUN/CREAT (test code = 14 RATIO [...] code = 2219) 34 U/L COMPREHENSIVE METABOLIC [id number] 00:00:00 Test Item Value Reference Range Interpretation Comments GLUCOSE (test code = 2217) 86 MG/DL BUN (test code = 2208) 14 MG/DL CREATININE (test code = 2214) 1.03 MG/DL eGFR AMER. (test code 70 ML/MIN/1.73 = 96597) eGFR NON- AMER. (test 60 ML/MIN/1.73 code = 08124) CALC BUN/CREAT (test code = 14 RATIO [...] code = 2219) 34 U/L CBC W/AUTO [id number] 00:00:00 Test Item Value Reference Range Interpretation [...] NUCLEATED RBCS (test code = 0.00 K/UL 89626) CBC W/AUTO [id number] 00:00:00 Test Item Value Reference Range Interpretation [...] NUCLEATED RBCS (test code = 0.00 K/UL 62987) CBC W/AUTO [id number] 00:00:00 Test Item Value Reference Range Interpretation [...] NUCLEATED RBCS (test code = 0.00 K/UL 19828) RHEUMATOID FACTOR, [id number] 00:00:00 Test Item Value Reference Range Interpretation Comments RHEUMATOID FACTOR, QUANT (test code <10 IU/ML = 3502) RHEUMATOID FACTOR, [id number] 00:00:00 Test Item Value Reference Range Interpretation Comments RHEUMATOID FACTOR, QUANT (test code <10 IU/ML = 3502) RHEUMATOID FACTOR, [id number] 00:00:00 Test Item Value Reference Range Interpretation Comments RHEUMATOID FACTOR, QUANT (test code <10 IU/ML = 3502) C-REACTIVE [id number] 00:00:00 Test Item Value Reference Range Interpretation Comments C-REACTIVE PROTEIN (test code = <0.3 MG/DL 3513) C-REACTIVE [id number] 00:00:00 Test Item Value Reference Range Interpretation Comments C-REACTIVE PROTEIN (test code = <0.3 MG/DL 3513) RACHEL (ANTI-NUCLEAR AB) WITH REFLEX [id number] 00:00:00 Test Item Value Reference Range Interpretation Comments ANTI-NUCLEAR ANTIBODIES (test code = POSITIVE 3506) RACHEL (ANTI-NUCLEAR AB) WITH REFLEX [id number] 00:00:00 Test Item Value Reference Range Interpretation Comments ANTI-NUCLEAR ANTIBODIES (test code = POSITIVE 3506) SEDIMENTATION [id number] 00:00:00 Test Item Value Reference Range Interpretation Comments SEDIMENTATION RATE (test code = 5 MM/HOUR 1017) SEDIMENTATION [id number] 00:00:00 Test Item Value Reference Range Interpretation Comments SEDIMENTATION RATE (test code = 5 MM/HOUR 1017) URIC [id number] 00:00:00 Test Item Value Reference Range Interpretation Comments URIC ACID (test code = 2233) 4.9 MG/DL URIC [id number] 00:00:00 Test Item Value Reference Range Interpretation Comments URIC ACID (test code = 2233) 4.9 MG/DL [id number] 00:00:00 Test Item Value Reference Range Interpretation Comments TSH, THIRD GENERATION (test code 0.501 UIU/ML = 2821) [id number] 00:00:00 Test Item Value Reference Range Interpretation Comments TSH, THIRD GENERATION (test code 0.501 UIU/ML = 2821) [id number] 00:00:00 Test Item Value Reference Range Interpretation Comments TSH, THIRD GENERATION (test code 0.501 UIU/ML = 2821) COMPREHENSIVE METABOLIC [id number] 00:00:00 Test Item Value Reference Range Interpretation Comments GLUCOSE (test code = 2217) 86 MG/DL BUN (test code = 2208) 14 MG/DL CREATININE (test code = 2214) 1.03 MG/DL eGFR AMER. (test code 70 ML/MIN/1.73 = 60545) eGFR NON- AMER. (test 60 ML/MIN/1.73 code = 51738) CALC BUN/CREAT (test code = 14 RATIO [...] code = 2219) 34 U/L COMPREHENSIVE METABOLIC [id number] 00:00:00 Test Item Value Reference Range Interpretation Comments GLUCOSE (test code = 2217) 86 MG/DL BUN (test code = 2208) 14 MG/DL CREATININE (test code = 2214) 1.03 MG/DL eGFR AMER. (test code 70 ML/MIN/1.73 = 54394) eGFR NON- AMER. (test 60 ML/MIN/1.73 code = 00144) CALC BUN/CREAT (test code = 14 RATIO [...] code = 2219) 34 U/L CBC W/AUTO [id number] 00:00:00 Test Item Value Reference Range Interpretation [...] NUCLEATED RBCS (test code = 0.00 K/UL 85702) CBC W/AUTO [id number] 00:00:00 Test Item Value Reference Range Interpretation [...] NUCLEATED RBCS (test code = 0.00 K/UL 07843) CBC W/AUTO [id number] 00:00:00 Test Item Value Reference Range Interpretation [...] NUCLEATED RBCS (test code = 0.00 K/UL 74922) RHEUMATOID FACTOR, [id number] 00:00:00 Test Item Value Reference Range Interpretation Comments RHEUMATOID FACTOR, QUANT (test code <10 IU/ML = 3502) RHEUMATOID FACTOR, [id number] 00:00:00 Test Item Value Reference Range Interpretation Comments RHEUMATOID FACTOR, QUANT (test code <10 IU/ML = 3502) RHEUMATOID FACTOR, [id number] 00:00:00 Test Item Value Reference Range Interpretation Comments RHEUMATOID FACTOR, QUANT (test code <10 IU/ML = 3502) C-REACTIVE [id number] 00:00:00 Test Item Value Reference Range Interpretation Comments C-REACTIVE PROTEIN (test code = <0.3 MG/DL 3513) C-REACTIVE [id number] 00:00:00 Test Item Value Reference Range Interpretation Comments C-REACTIVE PROTEIN (test code = <0.3 MG/DL 3513) RACHEL (ANTI-NUCLEAR AB) WITH REFLEX [id number] 00:00:00 Test Item Value Reference Range Interpretation Comments ANTI-NUCLEAR ANTIBODIES (test code = POSITIVE 3506) RACHEL (ANTI-NUCLEAR AB) WITH REFLEX [id number] 00:00:00 Test Item Value Reference Range Interpretation Comments ANTI-NUCLEAR ANTIBODIES (test code = POSITIVE 3506) SEDIMENTATION [id number] 00:00:00 Test Item Value Reference Range Interpretation Comments SEDIMENTATION RATE (test code = 5 MM/HOUR 1017) SEDIMENTATION [id number] 00:00:00 Test Item Value Reference Range Interpretation Comments SEDIMENTATION RATE (test code = 5 MM/HOUR 1017) URIC [id number] 00:00:00 Test Item Value Reference Range Interpretation Comments URIC ACID (test code = 2233) 4.9 MG/DL URIC [id number] 00:00:00 Test Item Value Reference Range Interpretation Comments URIC ACID (test code = 2233) 4.9 MG/DL [id number] 00:00:00 Test Item Value Reference Range Interpretation Comments TSH, THIRD GENERATION (test code 0.501 UIU/ML = 2821) [id number] 00:00:00 Test Item Value Reference Range Interpretation Comments TSH, THIRD GENERATION (test code 0.501 UIU/ML = 2821) [id number] 00:00:00 Test Item Value Reference Range Interpretation Comments TSH, THIRD GENERATION (test code 1.460 UIU/ML = 2821) [id number] 00:00:00 Test Item Value Reference Range Interpretation Comments TSH, THIRD GENERATION (test code 1.460 UIU/ML = 2821) [id number] 00:00:00 Test Item Value Reference Range Interpretation Comments TSH, THIRD GENERATION (test code 1.460 UIU/ML = 2821) [id number] 00:00:00 Test Item Value Reference Range Interpretation Comments TSH, THIRD GENERATION (test code 1.460 UIU/ML = 2821) [id number] 00:00:00 Test Item Value Reference Range Interpretation Comments TSH, THIRD GENERATION (test code 1.460 UIU/ML = 2821) [id number] 00:00:00 Test Item Value Reference Range Interpretation Comments TSH, THIRD GENERATION (test code 1.460 UIU/ML = 2821) [id number] 00:00:00 Test Item Value Reference Range Interpretation Comments TSH, THIRD GENERATION (test code 1.460 UIU/ML = 2821) [id number] 00:00:00 Test Item Value Reference Range Interpretation Comments TSH, THIRD GENERATION (test code 1.460 UIU/ML = 2821) [id number] 00:00:00 Test Item Value Reference Range Interpretation Comments TSH, THIRD GENERATION (test code 1.460 UIU/ML = 2821) [id number] 00:00:00 Test Item Value Reference Range Interpretation Comments TSH, THIRD GENERATION (test code 1.460 UIU/ML = 2821) [id number] 00:00:00 Test Item Value Reference Range Interpretation Comments TSH, THIRD GENERATION (test code 1.460 UIU/ML = 2821) [id number] 00:00:00 Test Item Value Reference Range Interpretation Comments TSH, THIRD GENERATION (test code 1.460 UIU/ML = 2821) [id number] 00:00:00 Test Item Value Reference Range Interpretation Comments TSH, THIRD GENERATION (test code 1.460 UIU/ML = 2821) [id number] 00:00:00 Test Item Value Reference Range Interpretation Comments TSH, THIRD GENERATION (test code 1.460 UIU/ML = 2821) [id number] 00:00:00 Test Item Value Reference Range Interpretation Comments TSH, THIRD GENERATION (test code 1.460 UIU/ML = 2821) [id number] 00:00:00 Test Item Value Reference Range Interpretation Comments TSH, THIRD GENERATION (test code 1.460 UIU/ML = 2821) [id number] 00:00:00 Test Item Value Reference Range Interpretation Comments TSH, THIRD GENERATION (test code 1.460 UIU/ML = 2821) [id number] 00:00:00 Test Item Value Reference Range Interpretation Comments TSH, THIRD GENERATION (test code 1.460 UIU/ML = 2821) [id number] 00:00:00 Test Item Value Reference Range Interpretation Comments TSH, THIRD GENERATION (test code 1.460 UIU/ML = 2821) [id number] 00:00:00 Test Item Value Reference Range Interpretation Comments TSH, THIRD GENERATION (test code 1.460 UIU/ML = 2821) [id number] 00:00:00 Test Item Value Reference Range Interpretation Comments TSH, THIRD GENERATION (test code 1.460 UIU/ML = 2821) CBC W/AUTO [id number] 00:00:00 Test Item Value Reference Range Interpretation [...] code = 1015) 301 K/UL COMPREHENSIVE METABOLIC [id number] 00:00:00 Test Item Value Reference Range Interpretation Comments GLUCOSE (test code = 2217) 86 MG/DL BUN (test code = 2208) 14 MG/DL CREATININE (test code = 2214) 1.00 MG/DL eGFR AMER. (test code 72 ML/MIN/1.73 = 48913) eGFR NON- AMER. (test 62 ML/MIN/1.73 code = 60845) CALC BUN/CREAT (test code = 14 RATIO [...] code = 2219) 20 U/L COMPREHENSIVE METABOLIC [id number] 00:00:00 Test Item Value Reference Range Interpretation Comments GLUCOSE (test code = 2217) 86 MG/DL BUN (test code = 2208) 14 MG/DL CREATININE (test code = 2214) 1.00 MG/DL eGFR AMER. (test code 72 ML/MIN/1.73 = 95804) eGFR NON- AMER. (test 62 ML/MIN/1.73 code = 57717) CALC BUN/CREAT (test code = 14 RATIO [...] ALT (test code = 2219) 20 U/L [id number] 00:00:00 Test Item Value Reference Range Interpretation Comments TSH, THIRD GENERATION (test >100.000 UIU/ML code = 2821) [id number] 00:00:00 Test Item Value Reference Range Interpretation Comments TSH, THIRD GENERATION (test >100.000 UIU/ML code = 2821) [id number] 00:00:00 Test Item Value Reference Range Interpretation Comments TSH, THIRD GENERATION (test >100.000 UIU/ML code = 2821) VITAMIN D, 25 [id number] 00:00:00 Test Item Value Reference Range Interpretation Comments VITAMIN D, 25 OH (test code = 4958) 24 NG/ML VITAMIN D, 25 [id number] 00:00:00 Test Item Value Reference Range Interpretation Comments VITAMIN D, 25 OH (test code = 4958) 24 NG/ML CBC W/AUTO [id number] 00:00:00 Test Item Value Reference Range Interpretation [...] code = 1015) 301 K/UL CBC W/AUTO [id number] 00:00:00 Test Item Value Reference Range Interpretation [...] code = 1015) 301 K/UL CBC W/AUTO [id number] 00:00:00 Test Item Value Reference Range Interpretation [...] code = 1015) 301 K/UL COMPREHENSIVE METABOLIC [id number] 00:00:00 Test Item Value Reference Range Interpretation Comments GLUCOSE (test code = 2217) 86 MG/DL BUN (test code = 2208) 14 MG/DL CREATININE (test code = 2214) 1.00 MG/DL eGFR AMER. (test code 72 ML/MIN/1.73 = 88299) eGFR NON- AMER. (test 62 ML/MIN/1.73 code = 88537) CALC BUN/CREAT (test code = 14 RATIO [...] code = 2219) 20 U/L COMPREHENSIVE METABOLIC [id number] 00:00:00 Test Item Value Reference Range Interpretation Comments GLUCOSE (test code = 2217) 86 MG/DL BUN (test code = 2208) 14 MG/DL CREATININE (test code = 2214) 1.00 MG/DL eGFR AMER. (test code 72 ML/MIN/1.73 = 18967) eGFR NON- AMER. (test 62 ML/MIN/1.73 code = 56592) CALC BUN/CREAT (test code = 14 RATIO [...] ALT (test code = 2219) 20 U/L [id number] 00:00:00 Test Item Value Reference Range Interpretation Comments TSH, THIRD GENERATION (test >100.000 UIU/ML code = 2821) [id number] 00:00:00 Test Item Value Reference Range Interpretation Comments TSH, THIRD GENERATION (test >100.000 UIU/ML code = 2821) [id number] 00:00:00 Test Item Value Reference Range Interpretation Comments TSH, THIRD GENERATION (test >100.000 UIU/ML code = 2821) VITAMIN D, 25 [id number] 00:00:00 Test Item Value Reference Range Interpretation Comments VITAMIN D, 25 OH (test code = 4958) 24 NG/ML VITAMIN D, 25 [id number] 00:00:00 Test Item Value Reference Range Interpretation Comments VITAMIN D, 25 OH (test code = 4958) 24 NG/ML CBC W/AUTO [id number] 00:00:00 Test Item Value Reference Range Interpretation [...] code = 1015) 301 K/UL CBC W/AUTO [id number] 00:00:00 Test Item Value Reference Range Interpretation [...] code = 1015) 301 K/UL CBC W/AUTO [id number] 00:00:00 Test Item Value Reference Range Interpretation [...] code = 1015) 301 K/UL COMPREHENSIVE METABOLIC [id number] 00:00:00 Test Item Value Reference Range Interpretation Comments GLUCOSE (test code = 2217) 86 MG/DL BUN (test code = 2208) 14 MG/DL CREATININE (test code = 2214) 1.00 MG/DL eGFR AMER. (test code 72 ML/MIN/1.73 = 14967) eGFR NON- AMER. (test 62 ML/MIN/1.73 code = 84015) CALC BUN/CREAT (test code = 14 RATIO [...] code = 2219) 20 U/L COMPREHENSIVE METABOLIC [id number] 00:00:00 Test Item Value Reference Range Interpretation Comments GLUCOSE (test code = 2217) 86 MG/DL BUN (test code = 2208) 14 MG/DL CREATININE (test code = 2214) 1.00 MG/DL eGFR AMER. (test code 72 ML/MIN/1.73 = 36624) eGFR NON- AMER. (test 62 ML/MIN/1.73 code = 45083) CALC BUN/CREAT (test code = 14 RATIO [...] ALT (test code = 2219) 20 U/L [id number] 00:00:00 Test Item Value Reference Range Interpretation Comments TSH, THIRD GENERATION (test >100.000 UIU/ML code = 2821) [id number] 00:00:00 Test Item Value Reference Range Interpretation Comments TSH, THIRD GENERATION (test >100.000 UIU/ML code = 2821) [id number] 00:00:00 Test Item Value Reference Range Interpretation Comments TSH, THIRD GENERATION (test >100.000 UIU/ML code = 2821) VITAMIN D, 25 [id number] 00:00:00 Test Item Value Reference Range Interpretation Comments VITAMIN D, 25 OH (test code = 4958) 24 NG/ML VITAMIN D, 25 [id number] 00:00:00 Test Item Value Reference Range Interpretation Comments VITAMIN D, 25 OH (test code = 4958) 24 NG/ML CBC W/AUTO [id number] 00:00:00 Test Item Value Reference Range Interpretation [...] code = 1015) 301 K/UL CBC W/AUTO [id number] 00:00:00 Test Item Value Reference Range Interpretation [...] code = 1015) 301 K/UL CBC W/AUTO [id number] 00:00:00 Test Item Value Reference Range Interpretation [...] code = 1015) 301 K/UL CBC W/AUTO [id number] 00:00:00 Test Item Value Reference Range Interpretation [...] code = 1015) 301 K/UL CBC W/AUTO [id number] 00:00:00 Test Item Value Reference Range Interpretation [...] code = 1015) 301 K/UL COMPREHENSIVE METABOLIC [id number] 00:00:00 Test Item Value Reference Range Interpretation Comments GLUCOSE (test code = 2217) 86 MG/DL BUN (test code = 2208) 14 MG/DL CREATININE (test code = 2214) 1.00 MG/DL eGFR AMER. (test code 72 ML/MIN/1.73 = 90424) eGFR NON- AMER. (test 62 ML/MIN/1.73 code = 27922) CALC BUN/CREAT (test code = 14 RATIO [...] code = 2219) 20 U/L COMPREHENSIVE METABOLIC [id number] 00:00:00 Test Item Value Reference Range Interpretation Comments GLUCOSE (test code = 2217) 86 MG/DL BUN (test code = 2208) 14 MG/DL CREATININE (test code = 2214) 1.00 MG/DL eGFR AMER. (test code 72 ML/MIN/1.73 = 02058) eGFR NON- AMER. (test 62 ML/MIN/1.73 code = 51687) CALC BUN/CREAT (test code = 14 RATIO 2234) SODIUM (test code = 2231) 144 MEQ/L [...] ALT (test code = 2219) 20 U/L [id number] 00:00:00 Test Item Value Reference Range Interpretation Comments TSH, THIRD GENERATION (test >100.000 UIU/ML code = 2821) [id number] 00:00:00 Test Item Value Reference Range Interpretation Comments TSH, THIRD GENERATION (test >100.000 UIU/ML code = 2821) [id number] 00:00:00 Test Item Value Reference Range Interpretation Comments TSH, THIRD GENERATION (test >100.000 UIU/ML code = 2821) VITAMIN D, 25 [id number] 00:00:00 Test Item Value Reference Range Interpretation Comments VITAMIN D, 25 OH (test code = 4958) 24 NG/ML VITAMIN D, 25 [id number] 00:00:00 Test Item Value Reference Range Interpretation Comments VITAMIN D, 25 OH (test code = 4958) 24 NG/ML CBC W/AUTO [id number] 00:00:00 Test Item Value Reference Range Interpretation [...] code = 1015) 301 K/UL COMPREHENSIVE METABOLIC [id number] 00:00:00 Test Item Value Reference Range Interpretation Comments GLUCOSE (test code = 2217) 86 MG/DL BUN (test code = 2208) 14 MG/DL CREATININE (test code = 2214) 1.00 MG/DL eGFR AMER. (test code 72 ML/MIN/1.73 = 13817) eGFR NON- AMER. (test 62 ML/MIN/1.73 code = 39285) CALC BUN/CREAT (test code = 14 RATIO [...] code = 2219) 20 U/L COMPREHENSIVE METABOLIC [id number] 00:00:00 Test Item Value Reference Range Interpretation Comments GLUCOSE (test code = 2217) 86 MG/DL BUN (test code = 2208) 14 MG/DL CREATININE (test code = 2214) 1.00 MG/DL eGFR AMER. (test code 72 ML/MIN/1.73 = 49308) eGFR NON- AMER. (test 62 ML/MIN/1.73 code = 49935) CALC BUN/CREAT (test code = 14 RATIO [...] ALT (test code = 2219) 20 U/L [id number] 00:00:00 Test Item Value Reference Range Interpretation Comments TSH, THIRD GENERATION (test >100.000 UIU/ML code = 2821) [id number] 00:00:00 Test Item Value Reference Range Interpretation Comments TSH, THIRD GENERATION (test >100.000 UIU/ML code = 2821) [id number] 00:00:00 Test Item Value Reference Range Interpretation Comments TSH, THIRD GENERATION (test >100.000 UIU/ML code = 2821) VITAMIN D, 25 [id number] 00:00:00 Test Item Value Reference Range Interpretation Comments VITAMIN D, 25 OH (test code = 4958) 24 NG/ML VITAMIN D, 25 [id number] 00:00:00 Test Item Value Reference Range Interpretation Comments VITAMIN D, 25 OH (test code = 4958) 24 NG/ML CBC W/AUTO [id number] 00:00:00 Test Item Value Reference Range Interpretation [...] code = 1015) 301 K/UL CBC W/AUTO [id number] 00:00:00 Test Item Value Reference Range Interpretation [...] code = 1015) 301 K/UL CBC W/AUTO [id number] 00:00:00 Test Item Value Reference Range Interpretation [...] code = 1015) 301 K/UL COMPREHENSIVE METABOLIC [id number] 00:00:00 Test Item Value Reference Range Interpretation Comments GLUCOSE (test code = 2217) 86 MG/DL BUN (test code = 2208) 14 MG/DL CREATININE (test code = 2214) 1.00 MG/DL eGFR AMER. (test code 72 ML/MIN/1.73 = 01470) eGFR NON- AMER. (test 62 ML/MIN/1.73 code = 78928) CALC BUN/CREAT (test code = 14 RATIO [...] code = 2219) 20 U/L COMPREHENSIVE METABOLIC [id number] 00:00:00 Test Item Value Reference Range Interpretation Comments GLUCOSE (test code = 2217) 86 MG/DL BUN (test code = 2208) 14 MG/DL CREATININE (test code = 2214) 1.00 MG/DL eGFR AMER. (test code 72 ML/MIN/1.73 = 08328) eGFR NON- AMER. (test 62 ML/MIN/1.73 code = 13199) CALC BUN/CREAT (test code = 14 RATIO [...] ALT (test code = 2219) 20 U/L [id number] 00:00:00 Test Item Value Reference Range Interpretation Comments TSH, THIRD GENERATION (test >100.000 UIU/ML code = 2821) [id number] 00:00:00 Test Item Value Reference Range Interpretation Comments TSH, THIRD GENERATION (test >100.000 UIU/ML code = 2821) [id number] 00:00:00 Test Item Value Reference Range Interpretation Comments TSH, THIRD GENERATION (test >100.000 UIU/ML code = 2821) VITAMIN D, 25 [id number] 00:00:00 Test Item Value Reference Range Interpretation Comments VITAMIN D, 25 OH (test code = 4958) 24 NG/ML VITAMIN D, 25 [id number] 00:00:00 Test Item Value Reference Range Interpretation Comments VITAMIN D, 25 OH (test code = 4958) 24 NG/ML CBC W/AUTO [id number] 00:00:00 Test Item Value Reference Range Interpretation [...] code = 1015) 301 K/UL CBC W/AUTO [id number] 00:00:00 Test Item Value Reference Range Interpretation [...] code = 1015) 301 K/UL CBC W/AUTO [id number] 00:00:00 Test Item Value Reference Range Interpretation [...] code = 1015) 301 K/UL COMPREHENSIVE METABOLIC [id number] 00:00:00 Test Item Value Reference Range Interpretation Comments GLUCOSE (test code = 2217) 86 MG/DL BUN (test code = 2208) 14 MG/DL CREATININE (test code = 2214) 1.00 MG/DL eGFR AMER. (test code 72 ML/MIN/1.73 = 23993) eGFR NON- AMER. (test 62 ML/MIN/1.73 code = 69538) CALC BUN/CREAT (test code = 14 RATIO [...] code = 2219) 20 U/L COMPREHENSIVE METABOLIC [id number] 00:00:00 Test Item Value Reference Range Interpretation Comments GLUCOSE (test code = 2217) 86 MG/DL BUN (test code = 2208) 14 MG/DL CREATININE (test code = 2214) 1.00 MG/DL eGFR AMER. (test code 72 ML/MIN/1.73 = 90074) eGFR NON- AMER. (test 62 ML/MIN/1.73 code = 03544) CALC BUN/CREAT (test code = 14 RATIO [...] BILIRUBIN, TOTAL (test code = 0.2 MG/DL 7) ALKALINE PHOSPHATASE (test 95 U/L code = 2204) AST (test code = 2218) 30 U/L ALT (test code = 2219) 20 U/L [id number] 00:00:00 Test Item Value Reference Range Interpretation Comments TSH, THIRD GENERATION (test >100.000 UIU/ML code = 2821) [id number] 00:00:00 Test Item Value Reference Range Interpretation Comments TSH, THIRD GENERATION (test >100.000 UIU/ML code = 2821) [id number] 00:00:00 Test Item Value Reference Range Interpretation Comments TSH, THIRD GENERATION (test >100.000 UIU/ML code = 2821) VITAMIN D, 25 [id number] 00:00:00 Test Item Value Reference Range Interpretation Comments VITAMIN D, 25 OH (test code = 4958) 24 NG/ML VITAMIN D, 25 [id number] 00:00:00 Test Item Value Reference Range Interpretation Comments VITAMIN D, 25 OH (test code = 4958) 24 NG/ML CBC W/AUTO [id number] 00:00:00 Test Item Value Reference Range Interpretation [...] code = 1015) 301 K/UL CBC W/AUTO [id number] 00:00:00 Test Item Value Reference Range Interpretation [...] 1015) 301 K/UL XR SHOULDER 2+ VW [id number] 20:06:12 No acute bony abnormality. Mild acromioclavicular [...] is noted.No soft tissue abnormality is seen. [facility], Radiant Results Inft User - 09/19/2019 3:07 [...] reviewed this study and agree with the abovereport.[facility] [id number] 00:00:00 Test Item Value Reference Range Interpretation Comments ANTI-NUCLEAR ANTIBODIES (test code = NEGATIVE 3506) RACHEL (ANTI-NUCLEAR AB) WITH REFLEX [id number] 00:00:00 Test Item Value Reference Range Interpretation Comments ANTI-NUCLEAR ANTIBODIES (test code = NEGATIVE 3506) COMPREHENSIVE METABOLIC [id number] 00:00:00 Test Item Value Reference Range Interpretation Comments GLUCOSE (test code = 2217) 79 MG/DL BUN (test code = 2208) 17 MG/DL CREATININE (test code = 2214) 0.78 MG/DL eGFR AMER. (test code 98 ML/MIN/1.73 = 62051) eGFR NON- AMER. (test 85 ML/MIN/1.73 code = 59170) CALC BUN/CREAT (test code = 22 RATIO [...] code = 2219) 18 U/L COMPREHENSIVE METABOLIC [id number] 00:00:00 Test Item Value Reference Range Interpretation Comments GLUCOSE (test code = 2217) 79 MG/DL BUN (test code = 2208) 17 MG/DL CREATININE (test code = 2214) 0.78 MG/DL eGFR AMER. (test code 98 ML/MIN/1.73 = 06645) eGFR NON- AMER. (test 85 ML/MIN/1.73 code = 60899) CALC BUN/CREAT (test code = 22 RATIO [...] code = 2219) 18 U/L CBC W/AUTO [id number] 00:00:00 Test Item Value Reference Range Interpretation [...] code = 1015) 249 K/UL CBC W/AUTO [id number] 00:00:00 Test Item Value Reference Range Interpretation [...] code = 1015) 249 K/UL CBC W/AUTO [id number] 00:00:00 Test Item Value Reference Range Interpretation [...] code = 1015) 249 K/UL RHEUMATOID FACTOR, [id number] 00:00:00 Test Item Value Reference Range Interpretation Comments RHEUMATOID FACTOR, QUANT (test code <10 IU/ML = 3502) RHEUMATOID FACTOR, [id number] 00:00:00 Test Item Value Reference Range Interpretation Comments RHEUMATOID FACTOR, QUANT (test code <10 IU/ML = 3502) RHEUMATOID FACTOR, [id number] 00:00:00 Test Item Value Reference Range Interpretation Comments RHEUMATOID FACTOR, QUANT (test code <10 IU/ML = 3502) VITAMIN D, 25 [id number] 00:00:00 Test Item Value Reference Range Interpretation Comments VITAMIN D, 25 OH (test code = 4958) 24 NG/ML VITAMIN D, 25 [id number] 00:00:00 Test Item Value Reference Range Interpretation Comments VITAMIN D, 25 OH (test code = 4958) 24 NG/ML [id number] 00:00:00 Test Item Value Reference Range Interpretation Comments MAGNESIUM (test code = 2226) 2.0 MG/DL [id number] 00:00:00 Test Item Value Reference Range Interpretation Comments MAGNESIUM (test code = 2226) 2.0 MG/DL [id number] 00:00:00 Test Item Value Reference Range Interpretation Comments MAGNESIUM (test code = 2226) 2.0 MG/DL [id number] 00:00:00 Test Item Value Reference Range Interpretation Comments TSH, THIRD GENERATION (test code 6.220 UIU/ML = 2821) [id number] 00:00:00 Test Item Value Reference Range Interpretation Comments TSH, THIRD GENERATION (test code 6.220 UIU/ML = 2821) [id number] 00:00:00 Test Item Value Reference Range Interpretation Comments TSH, THIRD GENERATION (test code 6.220 UIU/ML = 2821) RACHEL (ANTI-NUCLEAR AB) WITH REFLEX [id number] 00:00:00 Test Item Value Reference Range Interpretation Comments ANTI-NUCLEAR ANTIBODIES (test code = NEGATIVE 3506) RAHCEL (ANTI-NUCLEAR AB) WITH REFLEX [id number] 00:00:00 Test Item Value Reference Range Interpretation Comments ANTI-NUCLEAR ANTIBODIES (test code = NEGATIVE 3506) COMPREHENSIVE METABOLIC [id number] 00:00:00 Test Item Value Reference Range Interpretation Comments GLUCOSE (test code = 2217) 79 MG/DL BUN (test code = 2208) 17 MG/DL CREATININE (test code = 2214) 0.78 MG/DL eGFR AMER. (test code 98 ML/MIN/1.73 = 82797) eGFR NON- AMER. (test 85 ML/MIN/1.73 code = 74444) CALC BUN/CREAT (test code = 22 RATIO [...] code = 2219) 18 U/L COMPREHENSIVE METABOLIC [id number] 00:00:00 Test Item Value Reference Range Interpretation Comments GLUCOSE (test code = 2217) 79 MG/DL BUN (test code = 2208) 17 MG/DL CREATININE (test code = 2214) 0.78 MG/DL eGFR AMER. (test code 98 ML/MIN/1.73 = 83678) eGFR NON- AMER. (test 85 ML/MIN/1.73 code = 57434) CALC BUN/CREAT (test code = 22 RATIO 2234) SODIUM (test code = 2231) 142 MEQ/L POTASSIUM (test code = 2228) 3.9 MEQ/L CHLORIDE (test code = 2215) 105 MEQ/L CARBON DIOXIDE (test code = 29 MEQ/L 2205) CALCIUM (test code = 2209) 9.1 MG/DL PROTEIN, TOTAL (test code = 6.0 G/DL 2228) ALBUMIN (test code = 220) 4.1 G/DL CALC GLOBULIN (test code = 1.9 G/DL 2239) CALC A/G RATIO (test code = 2.2 RATIO 2233) BILIRUBIN, TOTAL (test code = 0.3 MG/DL 2206) ALKALINE PHOSPHATASE (test 109 U/L code = 220) AST (test code = 2218) 23 U/L ALT (test code = 2219) 18 U/L CBC W/AUTO [id number] 00:00:00 Test Item Value Reference Range Interpretation [...] code = 1015) 249 K/UL CBC W/AUTO [id number] 00:00:00 Test Item Value Reference Range Interpretation [...] code = 1015) 249 K/UL CBC W/AUTO [id number] 00:00:00 Test Item Value Reference Range Interpretation [...] code = 1015) 249 K/UL RHEUMATOID FACTOR, [id number] 00:00:00 Test Item Value Reference Range Interpretation Comments RHEUMATOID FACTOR, QUANT (test code <10 IU/ML = 3502) RHEUMATOID FACTOR, [id number] 00:00:00 Test Item Value Reference Range Interpretation Comments RHEUMATOID FACTOR, QUANT (test code <10 IU/ML = 3502) RHEUMATOID FACTOR, [id number] 00:00:00 Test Item Value Reference Range Interpretation Comments RHEUMATOID FACTOR, QUANT (test code <10 IU/ML = 3502) VITAMIN D, 25 [id number] 00:00:00 Test Item Value Reference Range Interpretation Comments VITAMIN D, 25 OH (test code = 4958) 24 NG/ML VITAMIN D, 25 [id number] 00:00:00 Test Item Value Reference Range Interpretation Comments VITAMIN D, 25 OH (test code = 4958) 24 NG/ML [id number] 00:00:00 Test Item Value Reference Range Interpretation Comments MAGNESIUM (test code = 2226) 2.0 MG/DL [id number] 00:00:00 Test Item Value Reference Range Interpretation Comments MAGNESIUM (test code = 2226) 2.0 MG/DL [id number] 00:00:00 Test Item Value Reference Range Interpretation Comments MAGNESIUM (test code = 2226) 2.0 MG/DL [id number] 00:00:00 Test Item Value Reference Range Interpretation Comments TSH, THIRD GENERATION (test code 6.220 UIU/ML = 2821) [id number] 00:00:00 Test Item Value Reference Range Interpretation Comments TSH, THIRD GENERATION (test code 6.220 UIU/ML = 2821) [id number] 00:00:00 Test Item Value Reference Range Interpretation Comments TSH, THIRD GENERATION (test code 6.220 UIU/ML = 2821) RACHEL (ANTI-NUCLEAR AB) WITH REFLEX [id number] 00:00:00 Test Item Value Reference Range Interpretation Comments ANTI-NUCLEAR ANTIBODIES (test code = NEGATIVE 3506) RACHEL (ANTI-NUCLEAR AB) WITH REFLEX [id number] 00:00:00 Test Item Value Reference Range Interpretation Comments ANTI-NUCLEAR ANTIBODIES (test code = NEGATIVE 3506) COMPREHENSIVE METABOLIC [id number] 00:00:00 Test Item Value Reference Range Interpretation Comments GLUCOSE (test code = 2217) 79 MG/DL BUN (test code = 2208) 17 MG/DL CREATININE (test code = 2214) 0.78 MG/DL eGFR AMER. (test code 98 ML/MIN/1.73 = 01173) eGFR NON- AMER. (test 85 ML/MIN/1.73 code = 78388) CALC BUN/CREAT (test code = 22 RATIO [...] code = 2219) 18 U/L COMPREHENSIVE METABOLIC [id number] 00:00:00 Test Item Value Reference Range Interpretation Comments GLUCOSE (test code = 2217) 79 MG/DL BUN (test code = 2208) 17 MG/DL CREATININE (test code = 2214) 0.78 MG/DL eGFR AMER. (test code 98 ML/MIN/1.73 = 41096) eGFR NON- AMER. (test 85 ML/MIN/1.73 code = 63254) CALC BUN/CREAT (test code = 22 RATIO 2235) SODIUM (test code = 2231) 142 MEQ/L POTASSIUM (test code = 2228) 3.9 MEQ/L CHLORIDE (test code = 2215) 105 MEQ/L CARBON DIOXIDE (test code = 29 MEQ/L 2205) CALCIUM (test code = 2209) 9.1 MG/DL PROTEIN, TOTAL (test code = 6.0 G/DL 9) ALBUMIN (test code = 2201) 4.1 G/DL CALC GLOBULIN (test code = 1.9 G/DL 2240) CALC A/G RATIO (test code = 2.2 RATIO 2234) BILIRUBIN, TOTAL (test code = 0.3 MG/DL 2207) ALKALINE PHOSPHATASE (test 109 U/L code = 2204) AST (test code = 2218) 23 U/L ALT (test code = 2219) 18 U/L CBC W/AUTO [id number] 00:00:00 Test Item Value Reference Range Interpretation [...] code = 1015) 249 K/UL CBC W/AUTO [id number] 00:00:00 Test Item Value Reference Range Interpretation [...] code = 1015) 249 K/UL CBC W/AUTO [id number] 00:00:00 Test Item Value Reference Range Interpretation [...] code = 1015) 249 K/UL RHEUMATOID FACTOR, [id number] 00:00:00 Test Item Value Reference Range Interpretation Comments RHEUMATOID FACTOR, QUANT (test code <10 IU/ML = 3502) RHEUMATOID FACTOR, [id number] 00:00:00 Test Item Value Reference Range Interpretation Comments RHEUMATOID FACTOR, QUANT (test code <10 IU/ML = 3502) RHEUMATOID FACTOR, [id number] 00:00:00 Test Item Value Reference Range Interpretation Comments RHEUMATOID FACTOR, QUANT (test code <10 IU/ML = 3502) VITAMIN D, 25 [id number] 00:00:00 Test Item Value Reference Range Interpretation Comments VITAMIN D, 25 OH (test code = 4958) 24 NG/ML VITAMIN D, 25 [id number] 00:00:00 Test Item Value Reference Range Interpretation Comments VITAMIN D, 25 OH (test code = 4958) 24 NG/ML [id number] 00:00:00 Test Item Value Reference Range Interpretation Comments MAGNESIUM (test code = 2226) 2.0 MG/DL [id number] 00:00:00 Test Item Value Reference Range Interpretation Comments MAGNESIUM (test code = 2226) 2.0 MG/DL [id number] 00:00:00 Test Item Value Reference Range Interpretation Comments MAGNESIUM (test code = 2226) 2.0 MG/DL [id number] 00:00:00 Test Item Value Reference Range Interpretation Comments TSH, THIRD GENERATION (test code 6.220 UIU/ML = 2821) [id number] 00:00:00 Test Item Value Reference Range Interpretation Comments TSH, THIRD GENERATION (test code 6.220 UIU/ML = 2821) [id number] 00:00:00 Test Item Value Reference Range Interpretation Comments TSH, THIRD GENERATION (test code 6.220 UIU/ML = 2821) RACHEL (ANTI-NUCLEAR AB) WITH REFLEX [id number] 00:00:00 Test Item Value Reference Range Interpretation Comments ANTI-NUCLEAR ANTIBODIES (test code = NEGATIVE 3506) RACHEL (ANTI-NUCLEAR AB) WITH REFLEX [id number] 00:00:00 Test Item Value Reference Range Interpretation Comments ANTI-NUCLEAR ANTIBODIES (test code = NEGATIVE 3506) RACHEL (ANTI-NUCLEAR AB) WITH REFLEX [id number] 00:00:00 Test Item Value Reference Range Interpretation Comments ANTI-NUCLEAR ANTIBODIES (test code = NEGATIVE 3506) COMPREHENSIVE METABOLIC [id number] 00:00:00 Test Item Value Reference Range Interpretation Comments GLUCOSE (test code = 2217) 79 MG/DL BUN (test code = 2208) 17 MG/DL CREATININE (test code = 2214) 0.78 MG/DL eGFR AMER. (test code 98 ML/MIN/1.73 = 71639) eGFR NON- AMER. (test 85 ML/MIN/1.73 code = 60758) CALC BUN/CREAT (test code = 22 RATIO [...] code = 2219) 18 U/L COMPREHENSIVE METABOLIC [id number] 00:00:00 Test Item Value Reference Range Interpretation Comments GLUCOSE (test code = 2217) 79 MG/DL BUN (test code = 2208) 17 MG/DL CREATININE (test code = 2214) 0.78 MG/DL eGFR AMER. (test code 98 ML/MIN/1.73 = 67187) eGFR NON- AMER. (test 85 ML/MIN/1.73 code = 46689) CALC BUN/CREAT (test code = 22 RATIO [...] code = 2219) 18 U/L CBC W/AUTO [id number] 00:00:00 Test Item Value Reference Range Interpretation [...] code = 1015) 249 K/UL CBC W/AUTO [id number] 00:00:00 Test Item Value Reference Range Interpretation [...] code = 1015) 249 K/UL CBC W/AUTO [id number] 00:00:00 Test Item Value Reference Range Interpretation [...] code = 1015) 249 K/UL RHEUMATOID FACTOR, [id number] 00:00:00 Test Item Value Reference Range Interpretation Comments RHEUMATOID FACTOR, QUANT (test code <10 IU/ML = 3502) RHEUMATOID FACTOR, [id number] 00:00:00 Test Item Value Reference Range Interpretation Comments RHEUMATOID FACTOR, QUANT (test code <10 IU/ML = 3502) RHEUMATOID FACTOR, [id number] 00:00:00 Test Item Value Reference Range Interpretation Comments RHEUMATOID FACTOR, QUANT (test code <10 IU/ML = 3502) VITAMIN D, 25 [id number] 00:00:00 Test Item Value Reference Range Interpretation Comments VITAMIN D, 25 OH (test code = 4958) 24 NG/ML VITAMIN D, 25 [id number] 00:00:00 Test Item Value Reference Range Interpretation Comments VITAMIN D, 25 OH (test code = 4958) 24 NG/ML RACHEL (ANTI-NUCLEAR AB) WITH REFLEX [id number] 00:00:00 Test Item Value Reference Range Interpretation Comments ANTI-NUCLEAR ANTIBODIES (test code = NEGATIVE 3506) [id number] 00:00:00 Test Item Value Reference Range Interpretation Comments MAGNESIUM (test code = 2226) 2.0 MG/DL [id number] 00:00:00 Test Item Value Reference Range Interpretation Comments MAGNESIUM (test code = 2226) 2.0 MG/DL [id number] 00:00:00 Test Item Value Reference Range Interpretation Comments MAGNESIUM (test code = 2226) 2.0 MG/DL [id number] 00:00:00 Test Item Value Reference Range Interpretation Comments TSH, THIRD GENERATION (test code 6.220 UIU/ML = 2821) [id number] 00:00:00 Test Item Value Reference Range Interpretation Comments TSH, THIRD GENERATION (test code 6.220 UIU/ML = 2821) [id number] 00:00:00 Test Item Value Reference Range Interpretation Comments TSH, THIRD GENERATION (test code 6.220 UIU/ML = 2821) COMPREHENSIVE METABOLIC [id number] 00:00:00 Test Item Value Reference Range Interpretation Comments GLUCOSE (test code = 2217) 79 MG/DL BUN (test code = 2208) 17 MG/DL CREATININE (test code = 2214) 0.78 MG/DL eGFR AMER. (test code 98 ML/MIN/1.73 = 87755) eGFR NON- AMER. (test 85 ML/MIN/1.73 code = 56936) CALC BUN/CREAT (test code = 22 RATIO 5) SODIUM (test code = 2231) 142 MEQ/L [...] code = 2219) 18 U/L COMPREHENSIVE METABOLIC [id number] 00:00:00 Test Item Value Reference Range Interpretation Comments GLUCOSE (test code = 2217) 79 MG/DL BUN (test code = 2208) 17 MG/DL CREATININE (test code = 2214) 0.78 MG/DL eGFR AMER. (test code 98 ML/MIN/1.73 = 86432) eGFR NON- AMER. (test 85 ML/MIN/1.73 code = 93442) CALC BUN/CREAT (test code = 22 RATIO 2234) SODIUM (test code = 2231) 142 MEQ/L [...] code = 2219) 18 U/L CBC W/AUTO [id number] 00:00:00 Test Item Value Reference Range Interpretation [...] code = 1015) 249 K/UL CBC W/AUTO [id number] 00:00:00 Test Item Value Reference Range Interpretation [...] code = 1015) 249 K/UL CBC W/AUTO [id number] 00:00:00 Test Item Value Reference Range Interpretation [...] code = 1015) 249 K/UL RHEUMATOID FACTOR, [id number] 00:00:00 Test Item Value Reference Range Interpretation Comments RHEUMATOID FACTOR, QUANT (test code <10 IU/ML = 3502) RHEUMATOID FACTOR, [id number] 00:00:00 Test Item Value Reference Range Interpretation Comments RHEUMATOID FACTOR, QUANT (test code <10 IU/ML = 3502) RHEUMATOID FACTOR, [id number] 00:00:00 Test Item Value Reference Range Interpretation Comments RHEUMATOID FACTOR, QUANT (test code <10 IU/ML = 3502) VITAMIN D, 25 [id number] 00:00:00 Test Item Value Reference Range Interpretation Comments VITAMIN D, 25 OH (test code = 4958) 24 NG/ML VITAMIN D, 25 [id number] 00:00:00 Test Item Value Reference Range Interpretation Comments VITAMIN D, 25 OH (test code = 4958) 24 NG/ML [id number] 00:00:00 Test Item Value Reference Range Interpretation Comments MAGNESIUM (test code = 2226) 2.0 MG/DL [id number] 00:00:00 Test Item Value Reference Range Interpretation Comments MAGNESIUM (test code = 2226) 2.0 MG/DL [id number] 00:00:00 Test Item Value Reference Range Interpretation Comments MAGNESIUM (test code = 2226) 2.0 MG/DL [id number] 00:00:00 Test Item Value Reference Range Interpretation Comments TSH, THIRD GENERATION (test code 6.220 UIU/ML = 2821) [id number] 00:00:00 Test Item Value Reference Range Interpretation Comments TSH, THIRD GENERATION (test code 6.220 UIU/ML = 2821) [id number] 00:00:00 Test Item Value Reference Range Interpretation Comments TSH, THIRD GENERATION (test code 6.220 UIU/ML = 2821) RACHEL (ANTI-NUCLEAR AB) WITH REFLEX [id number] 00:00:00 Test Item Value Reference Range Interpretation Comments ANTI-NUCLEAR ANTIBODIES (test code = NEGATIVE 3506) RACHEL (ANTI-NUCLEAR AB) WITH REFLEX [id number] 00:00:00 Test Item Value Reference Range Interpretation Comments ANTI-NUCLEAR ANTIBODIES (test code = NEGATIVE 3506) COMPREHENSIVE METABOLIC [id number] 00:00:00 Test Item Value Reference Range Interpretation Comments GLUCOSE (test code = 2217) 79 MG/DL BUN (test code = 2208) 17 MG/DL CREATININE (test code = 2214) 0.78 MG/DL eGFR AMER. (test code 98 ML/MIN/1.73 = 52654) eGFR NON- AMER. (test 85 ML/MIN/1.73 code = 50658) CALC BUN/CREAT (test code = 22 RATIO [...] code = 2219) 18 U/L COMPREHENSIVE METABOLIC [id number] 00:00:00 Test Item Value Reference Range Interpretation Comments GLUCOSE (test code = 2217) 79 MG/DL BUN (test code = 2208) 17 MG/DL CREATININE (test code = 2214) 0.78 MG/DL eGFR AMER. (test code 98 ML/MIN/1.73 = 79738) eGFR NON- AMER. (test 85 ML/MIN/1.73 code = 04101) CALC BUN/CREAT (test code = 22 RATIO [...] code = 2219) 18 U/L CBC W/AUTO [id number] 00:00:00 Test Item Value Reference Range Interpretation [...] code = 1015) 249 K/UL CBC W/AUTO [id number] 00:00:00 Test Item Value Reference Range Interpretation [...] code = 1015) 249 K/UL CBC W/AUTO [id number] 00:00:00 Test Item Value Reference Range Interpretation [...] code = 1015) 249 K/UL RHEUMATOID FACTOR, [id number] 00:00:00 Test Item Value Reference Range Interpretation Comments RHEUMATOID FACTOR, QUANT (test code <10 IU/ML = 3502) RHEUMATOID FACTOR, [id number] 00:00:00 Test Item Value Reference Range Interpretation Comments RHEUMATOID FACTOR, QUANT (test code <10 IU/ML = 3502) RHEUMATOID FACTOR, [id number] 00:00:00 Test Item Value Reference Range Interpretation Comments RHEUMATOID FACTOR, QUANT (test code <10 IU/ML = 3502) VITAMIN D, 25 [id number] 00:00:00 Test Item Value Reference Range Interpretation Comments VITAMIN D, 25 OH (test code = 4958) 24 NG/ML VITAMIN D, 25 [id number] 00:00:00 Test Item Value Reference Range Interpretation Comments VITAMIN D, 25 OH (test code = 4958) 24 NG/ML [id number] 00:00:00 Test Item Value Reference Range Interpretation Comments MAGNESIUM (test code = 2226) 2.0 MG/DL [id number] 00:00:00 Test Item Value Reference Range Interpretation Comments MAGNESIUM (test code = 2226) 2.0 MG/DL [id number] 00:00:00 Test Item Value Reference Range Interpretation Comments MAGNESIUM (test code = 2226) 2.0 MG/DL [id number] 00:00:00 Test Item Value Reference Range Interpretation Comments TSH, THIRD GENERATION (test code 6.220 UIU/ML = 2821) [id number] 00:00:00 Test Item Value Reference Range Interpretation Comments TSH, THIRD GENERATION (test code 6.220 UIU/ML = 2821) [id number] 00:00:00 Test Item Value Reference Range Interpretation Comments TSH, THIRD GENERATION (test code 6.220 UIU/ML = 2821) RACHEL (ANTI-NUCLEAR AB) WITH REFLEX [id number] 00:00:00 Test Item Value Reference Range Interpretation Comments ANTI-NUCLEAR ANTIBODIES (test code = NEGATIVE 3506) RACHEL (ANTI-NUCLEAR AB) WITH REFLEX [id number] 00:00:00 Test Item Value Reference Range Interpretation Comments ANTI-NUCLEAR ANTIBODIES (test code = NEGATIVE 3506) COMPREHENSIVE METABOLIC [id number] 00:00:00 Test Item Value Reference Range Interpretation Comments GLUCOSE (test code = 2217) 79 MG/DL BUN (test code = 2208) 17 MG/DL CREATININE (test code = 2214) 0.78 MG/DL eGFR AMER. (test code 98 ML/MIN/1.73 = 95933) eGFR NON- AMER. (test 85 ML/MIN/1.73 code = 12843) CALC BUN/CREAT (test code = 22 RATIO [...] code = 2219) 18 U/L COMPREHENSIVE METABOLIC [id number] 00:00:00 Test Item Value Reference Range Interpretation Comments GLUCOSE (test code = 2217) 79 MG/DL BUN (test code = 2208) 17 MG/DL CREATININE (test code = 2214) 0.78 MG/DL eGFR AMER. (test code 98 ML/MIN/1.73 = 40238) eGFR NON- AMER. (test 85 ML/MIN/1.73 code = 57514) CALC BUN/CREAT (test code = 22 RATIO [...] code = 2219) 18 U/L CBC W/AUTO [id number] 00:00:00 Test Item Value Reference Range Interpretation [...] code = 1015) 249 K/UL CBC W/AUTO [id number] 00:00:00 Test Item Value Reference Range Interpretation [...] code = 1015) 249 K/UL CBC W/AUTO [id number] 00:00:00 Test Item Value Reference Range Interpretation [...] code = 1015) 249 K/UL RHEUMATOID FACTOR, [id number] 00:00:00 Test Item Value Reference Range Interpretation Comments RHEUMATOID FACTOR, QUANT (test code <10 IU/ML = 3502) RHEUMATOID FACTOR, [id number] 00:00:00 Test Item Value Reference Range Interpretation Comments RHEUMATOID FACTOR, QUANT (test code <10 IU/ML = 3502) RHEUMATOID FACTOR, [id number] 00:00:00 Test Item Value Reference Range Interpretation Comments RHEUMATOID FACTOR, QUANT (test code <10 IU/ML = 3502) VITAMIN D, 25 [id number] 00:00:00 Test Item Value Reference Range Interpretation Comments VITAMIN D, 25 OH (test code = 4958) 24 NG/ML VITAMIN D, 25 [id number] 00:00:00 Test Item Value Reference Range Interpretation Comments VITAMIN D, 25 OH (test code = 4958) 24 NG/ML [id number] 00:00:00 Test Item Value Reference Range Interpretation Comments MAGNESIUM (test code = 2226) 2.0 MG/DL [id number] 00:00:00 Test Item Value Reference Range Interpretation Comments MAGNESIUM (test code = 2226) 2.0 MG/DL [id number] 00:00:00 Test Item Value Reference Range Interpretation Comments MAGNESIUM (test code = 2226) 2.0 MG/DL [id number] 00:00:00 Test Item Value Reference Range Interpretation Comments TSH, THIRD GENERATION (test code 6.220 UIU/ML = 2821) [id number] 00:00:00 Test Item Value Reference Range Interpretation Comments TSH, THIRD GENERATION (test code 6.220 UIU/ML = 2821) [id number] 00:00:00 Test Item Value Reference Range Interpretation Comments TSH, THIRD GENERATION (test code 6.220 UIU/ML = 2821) [id number] 00:00:00 Test Item Value Reference Range Interpretation Comments LAMOTRIGINE (test code = 81915) 6.2 mcg/mL [id number] 00:00:00 Test Item Value Reference Range Interpretation Comments LAMOTRIGINE (test code = 27248) 6.2 mcg/mL [id number] 00:00:00 Test Item Value Reference Range Interpretation Comments LEVETIRACETAM (test code = 44468) 19.7 mcg/mL [id number] 00:00:00 Test Item Value Reference Range Interpretation Comments LEVETIRACETAM (test code = 64363) 19.7 mcg/mL [id number] 00:00:00 Test Item Value Reference Range Interpretation Comments LAMOTRIGINE (test code = 64694) 6.2 mcg/mL [id number] 00:00:00 Test Item Value Reference Range Interpretation Comments LAMOTRIGINE (test code = 63636) 6.2 mcg/mL [id number] 00:00:00 Test Item Value Reference Range Interpretation Comments LEVETIRACETAM (test code = 17686) 19.7 mcg/mL [id number] 00:00:00 Test Item Value Reference Range Interpretation Comments LEVETIRACETAM (test code = 27471) 19.7 mcg/mL [id number] 00:00:00 Test Item Value Reference Range Interpretation Comments LAMOTRIGINE (test code = 60996) 6.2 mcg/mL [id number] 00:00:00 Test Item Value Reference Range Interpretation Comments LAMOTRIGINE (test code = 04139) 6.2 mcg/mL [id number] 00:00:00 Test Item Value Reference Range Interpretation Comments LEVETIRACETAM (test code = 64148) 19.7 mcg/mL [id number] 00:00:00 Test Item Value Reference Range Interpretation Comments LEVETIRACETAM (test code = 89092) 19.7 mcg/mL [id number] 00:00:00 Test Item Value Reference Range Interpretation Comments LAMOTRIGINE (test code = 70443) 6.2 mcg/mL [id number] 00:00:00 Test Item Value Reference Range Interpretation Comments LAMOTRIGINE (test code = 50625) 6.2 mcg/mL [id number] 00:00:00 Test Item Value Reference Range Interpretation Comments LEVETIRACETAM (test code = 21023) 19.7 mcg/mL [id number] 00:00:00 Test Item Value Reference Range Interpretation Comments LEVETIRACETAM (test code = 08636) 19.7 mcg/mL [id number] 00:00:00 Test Item Value Reference Range Interpretation Comments LAMOTRIGINE (test code = 90327) 6.2 mcg/mL [id number] 00:00:00 Test Item Value Reference Range Interpretation Comments LAMOTRIGINE (test code = 69345) 6.2 mcg/mL [id number] 00:00:00 Test Item Value Reference Range Interpretation Comments LEVETIRACETAM (test code = 02623) 19.7 mcg/mL [id number] 00:00:00 Test Item Value Reference Range Interpretation Comments LEVETIRACETAM (test code = 84785) 19.7 mcg/mL [id number] 00:00:00 Test Item Value Reference Range Interpretation Comments LAMOTRIGINE (test code = 61125) 6.2 mcg/mL [id number] 00:00:00 Test Item Value Reference Range Interpretation Comments LAMOTRIGINE (test code = 64838) 6.2 mcg/mL [id number] 00:00:00 Test Item Value Reference Range Interpretation Comments LEVETIRACETAM (test code = 25673) 19.7 mcg/mL [id number] 00:00:00 Test Item Value Reference Range Interpretation Comments LEVETIRACETAM (test code = 20133) 19.7 mcg/mL [id number] 00:00:00 Test Item Value Reference Range Interpretation Comments LAMOTRIGINE (test code = 13970) 6.2 mcg/mL [id number] 00:00:00 Test Item Value Reference Range Interpretation Comments LAMOTRIGINE (test code = 61489) 6.2 mcg/mL [id number] 00:00:00 Test Item Value Reference Range Interpretation Comments LEVETIRACETAM (test code = 09096) 19.7 mcg/mL [id number] 00:00:00 Test Item Value Reference Range Interpretation Comments LEVETIRACETAM (test code = 69835) 19.7 mcg/mL [id number] 00:00:00 Test Item Value Reference Range Interpretation Comments TSH, THIRD GENERATION (test code 0.300 UIU/ML = 2821) [id number] 00:00:00 Test Item Value Reference Range Interpretation Comments TSH, THIRD GENERATION (test code 0.300 UIU/ML = 2821) [id number] 00:00:00 Test Item Value Reference Range Interpretation Comments TSH, THIRD GENERATION (test code 0.300 UIU/ML = 2821) CBC W/AUTO [id number] 00:00:00 Test Item Value Reference Range Interpretation [...] code = 1015) 214 K/UL CBC W/AUTO [id number] 00:00:00 Test Item Value Reference Range Interpretation [...] code = 1015) 214 K/UL CBC W/AUTO [id number] 00:00:00 Test Item Value Reference Range Interpretation [...] code = 1015) 214 K/UL COMPREHENSIVE METABOLIC [id number] 00:00:00 Test Item Value Reference Range Interpretation Comments GLUCOSE (test code = 2217) 87 MG/DL BUN (test code = 2208) 15 MG/DL CREATININE (test code = 2214) 0.89 MG/DL eGFR AMER. (test code 84 ML/MIN/1.73 = 37535) eGFR NON- AMER. (test 72 ML/MIN/1.73 code = 54981) CALC BUN/CREAT (test code = 17 RATIO [...] code = 2219) 13 U/L COMPREHENSIVE METABOLIC [id number] 00:00:00 Test Item Value Reference Range Interpretation Comments GLUCOSE (test code = 2217) 87 MG/DL BUN (test code = 2208) 15 MG/DL CREATININE (test code = 2214) 0.89 MG/DL eGFR AMER. (test code 84 ML/MIN/1.73 = 13350) eGFR NON- AMER. (test 72 ML/MIN/1.73 code = 17277) CALC BUN/CREAT (test code = 17 RATIO [...] ALT (test code = 2219) 13 U/L [id number] 00:00:00 Test Item Value Reference Range Interpretation Comments TSH, THIRD GENERATION (test code 0.300 UIU/ML = 2821) [id number] 00:00:00 Test Item Value Reference Range Interpretation Comments TSH, THIRD GENERATION (test code 0.300 UIU/ML = 2821) [id number] 00:00:00 Test Item Value Reference Range Interpretation Comments TSH, THIRD GENERATION (test code 0.300 UIU/ML = 2821) CBC W/AUTO [id number] 00:00:00 Test Item Value Reference Range Interpretation [...] code = 1015) 214 K/UL CBC W/AUTO [id number] 00:00:00 Test Item Value Reference Range Interpretation [...] code = 1015) 214 K/UL CBC W/AUTO [id number] 00:00:00 Test Item Value Reference Range Interpretation [...] code = 1015) 214 K/UL COMPREHENSIVE METABOLIC [id number] 00:00:00 Test Item Value Reference Range Interpretation Comments GLUCOSE (test code = 2217) 87 MG/DL BUN (test code = 2208) 15 MG/DL CREATININE (test code = 2214) 0.89 MG/DL eGFR AMER. (test code 84 ML/MIN/1.73 = 67403) eGFR NON- AMER. (test 72 ML/MIN/1.73 code = 74589) CALC BUN/CREAT (test code = 17 RATIO [...] code = 2219) 13 U/L COMPREHENSIVE METABOLIC [id number] 00:00:00 Test Item Value Reference Range Interpretation Comments GLUCOSE (test code = 2217) 87 MG/DL BUN (test code = 2208) 15 MG/DL CREATININE (test code = 2214) 0.89 MG/DL eGFR AMER. (test code 84 ML/MIN/1.73 = 15182) eGFR NON- AMER. (test 72 ML/MIN/1.73 code = 99242) CALC BUN/CREAT (test code = 17 RATIO [...] ALT (test code = 2219) 13 U/L [id number] 00:00:00 Test Item Value Reference Range Interpretation Comments TSH, THIRD GENERATION (test code 0.300 UIU/ML = 2821) [id number] 00:00:00 Test Item Value Reference Range Interpretation Comments TSH, THIRD GENERATION (test code 0.300 UIU/ML = 2821) [id number] 00:00:00 Test Item Value Reference Range Interpretation Comments TSH, THIRD GENERATION (test code 0.300 UIU/ML = 2821) CBC W/AUTO [id number] 00:00:00 Test Item Value Reference Range Interpretation [...] code = 1015) 214 K/UL CBC W/AUTO [id number] 00:00:00 Test Item Value Reference Range Interpretation [...] code = 1015) 214 K/UL CBC W/AUTO [id number] 00:00:00 Test Item Value Reference Range Interpretation [...] code = 1015) 214 K/UL COMPREHENSIVE METABOLIC [id number] 00:00:00 Test Item Value Reference Range Interpretation Comments GLUCOSE (test code = 2217) 87 MG/DL BUN (test code = 2208) 15 MG/DL CREATININE (test code = 2214) 0.89 MG/DL eGFR AMER. (test code 84 ML/MIN/1.73 = 64792) eGFR NON- AMER. (test 72 ML/MIN/1.73 code = 70984) CALC BUN/CREAT (test code = 17 RATIO [...] code = 2219) 13 U/L COMPREHENSIVE METABOLIC [id number] 00:00:00 Test Item Value Reference Range Interpretation Comments GLUCOSE (test code = 2217) 87 MG/DL BUN (test code = 2208) 15 MG/DL CREATININE (test code = 2214) 0.89 MG/DL eGFR AMER. (test code 84 ML/MIN/1.73 = 35398) eGFR NON- AMER. (test 72 ML/MIN/1.73 code = 15803) CALC BUN/CREAT (test code = 17 RATIO [...] ALT (test code = 2219) 13 U/L [id number] 00:00:00 Test Item Value Reference Range Interpretation Comments TSH, THIRD GENERATION (test code 0.300 UIU/ML = 2821) [id number] 00:00:00 Test Item Value Reference Range Interpretation Comments TSH, THIRD GENERATION (test code 0.300 UIU/ML = 2821) [id number] 00:00:00 Test Item Value Reference Range Interpretation Comments TSH, THIRD GENERATION (test code 0.300 UIU/ML = 2821) [id number] 00:00:00 Test Item Value Reference Range Interpretation Comments TSH, THIRD GENERATION (test code 0.300 UIU/ML = 2821) [id number] 00:00:00 Test Item Value Reference Range Interpretation Comments TSH, THIRD GENERATION (test code 0.300 UIU/ML = 2821) CBC W/AUTO [id number] 00:00:00 Test Item Value Reference Range Interpretation [...] code = 1015) 214 K/UL CBC W/AUTO [id number] 00:00:00 Test Item Value Reference Range Interpretation [...] code = 1015) 214 K/UL CBC W/AUTO [id number] 00:00:00 Test Item Value Reference Range Interpretation [...] code = 1015) 214 K/UL COMPREHENSIVE METABOLIC [id number] 00:00:00 Test Item Value Reference Range Interpretation Comments GLUCOSE (test code = 2217) 87 MG/DL BUN (test code = 2208) 15 MG/DL CREATININE (test code = 2214) 0.89 MG/DL eGFR AMER. (test code 84 ML/MIN/1.73 = 00000) eGFR NON- AMER. (test 72 ML/MIN/1.73 code = 15952) CALC BUN/CREAT (test code = 17 RATIO [...] code = 2219) 13 U/L COMPREHENSIVE METABOLIC [id number] 00:00:00 Test Item Value Reference Range Interpretation Comments GLUCOSE (test code = 2217) 87 MG/DL BUN (test code = 2208) 15 MG/DL CREATININE (test code = 2214) 0.89 MG/DL eGFR AMER. (test code 84 ML/MIN/1.73 = 76479) eGFR NON- AMER. (test 72 ML/MIN/1.73 code = 57955) CALC BUN/CREAT (test code = 17 RATIO [...] ALT (test code = 2219) 13 U/L [id number] 00:00:00 Test Item Value Reference Range Interpretation Comments TSH, THIRD GENERATION (test code 0.300 UIU/ML = 2821) CBC W/AUTO [id number] 00:00:00 Test Item Value Reference Range Interpretation [...] code = 1015) 214 K/UL CBC W/AUTO [id number] 00:00:00 Test Item Value Reference Range Interpretation [...] code = 1015) 214 K/UL CBC W/AUTO [id number] 00:00:00 Test Item Value Reference Range Interpretation [...] code = 1015) 214 K/UL COMPREHENSIVE METABOLIC [id number] 00:00:00 Test Item Value Reference Range Interpretation Comments GLUCOSE (test code = 2217) 87 MG/DL BUN (test code = 2208) 15 MG/DL CREATININE (test code = 2214) 0.89 MG/DL eGFR AMER. (test code 84 ML/MIN/1.73 = 21688) eGFR NON- AMER. (test 72 ML/MIN/1.73 code = 75708) CALC BUN/CREAT (test code = 17 RATIO [...] code = 2219) 13 U/L COMPREHENSIVE METABOLIC [id number] 00:00:00 Test Item Value Reference Range Interpretation Comments GLUCOSE (test code = 2217) 87 MG/DL BUN (test code = 2208) 15 MG/DL CREATININE (test code = 2214) 0.89 MG/DL eGFR AMER. (test code 84 ML/MIN/1.73 = 92479) eGFR NON- AMER. (test 72 ML/MIN/1.73 code = 70607) CALC BUN/CREAT (test code = 17 RATIO 5) SODIUM (test code = 2231) [...] ALT (test code = 2219) 13 U/L [id number] 00:00:00 Test Item Value Reference Range Interpretation Comments TSH, THIRD GENERATION (test code 0.300 UIU/ML = 2821) [id number] 00:00:00 Test Item Value Reference Range Interpretation Comments TSH, THIRD GENERATION (test code 0.300 UIU/ML = 2821) [id number] 00:00:00 Test Item Value Reference Range Interpretation Comments TSH, THIRD GENERATION (test code 0.300 UIU/ML = 2821) CBC W/AUTO [id number] 00:00:00 Test Item Value Reference Range Interpretation [...] code = 1015) 214 K/UL CBC W/AUTO [id number] 00:00:00 Test Item Value Reference Range Interpretation [...] code = 1015) 214 K/UL CBC W/AUTO [id number] 00:00:00 Test Item Value Reference Range Interpretation [...] code = 1015) 214 K/UL COMPREHENSIVE METABOLIC [id number] 00:00:00 Test Item Value Reference Range Interpretation Comments GLUCOSE (test code = 2217) 87 MG/DL BUN (test code = 2208) 15 MG/DL CREATININE (test code = 2214) 0.89 MG/DL eGFR AMER. (test code 84 ML/MIN/1.73 = 76565) eGFR NON- AMER. (test 72 ML/MIN/1.73 code = 67694) CALC BUN/CREAT (test code = 17 RATIO [...] code = 2219) 13 U/L COMPREHENSIVE METABOLIC [id number] 00:00:00 Test Item Value Reference Range Interpretation Comments GLUCOSE (test code = 2217) 87 MG/DL BUN (test code = 2208) 15 MG/DL CREATININE (test code = 2214) 0.89 MG/DL eGFR AMER. (test code 84 ML/MIN/1.73 = 80423) eGFR NON- AMER. (test 72 ML/MIN/1.73 code = 29050) CALC BUN/CREAT (test code = 17 RATIO [...] ALT (test code = 2219) 13 U/L [id number] 00:00:00 Test Item Value Reference Range Interpretation Comments TSH, THIRD GENERATION (test code 0.300 UIU/ML = 2821) [id number] 00:00:00 Test Item Value Reference Range Interpretation Comments TSH, THIRD GENERATION (test code 0.300 UIU/ML = 2821) [id number] 00:00:00 Test Item Value Reference Range Interpretation Comments TSH, THIRD GENERATION (test code 0.300 UIU/ML = 2821) CBC W/AUTO [id number] 00:00:00 Test Item Value Reference Range Interpretation [...] code = 1015) 214 K/UL CBC W/AUTO [id number] 00:00:00 Test Item Value Reference Range Interpretation [...] code = 1015) 214 K/UL CBC W/AUTO [id number] 00:00:00 Test Item Value Reference Range Interpretation [...] code = 1015) 214 K/UL COMPREHENSIVE METABOLIC [id number] 00:00:00 Test Item Value Reference Range Interpretation Comments GLUCOSE (test code = 2217) 87 MG/DL BUN (test code = 2208) 15 MG/DL CREATININE (test code = 2214) 0.89 MG/DL eGFR AMER. (test code 84 ML/MIN/1.73 = 56380) eGFR NON- AMER. (test 72 ML/MIN/1.73 code = 24850) CALC BUN/CREAT (test code = 17 RATIO [...] code = 2219) 13 U/L COMPREHENSIVE METABOLIC [id number] 00:00:00 Test Item Value Reference Range Interpretation Comments GLUCOSE (test code = 2217) 87 MG/DL BUN (test code = 2208) 15 MG/DL CREATININE (test code = 2214) 0.89 MG/DL eGFR AMER. (test code 84 ML/MIN/1.73 = 30951) eGFR NON- AMER. (test 72 ML/MIN/1.73 code = 41226) CALC BUN/CREAT (test code = 17 RATIO [...] ALT (test code = 2219) 13 U/L [id number] 00:00:00 Test Item Value Reference Range Interpretation Comments LEVETIRACETAM (test code = 72729) 36.0 mcg/mL [id number] 00:00:00 Test Item Value Reference Range Interpretation Comments LEVETIRACETAM (test code = 83063) 36.0 mcg/mL [id number] 00:00:00 Test Item Value Reference Range Interpretation Comments LEVETIRACETAM (test code = 42594) 36.0 mcg/mL [id number] 00:00:00 Test Item Value Reference Range Interpretation Comments LEVETIRACETAM (test code = 59311) 36.0 mcg/mL [id number] 00:00:00 Test Item Value Reference Range Interpretation Comments LEVETIRACETAM (test code = 43678) 36.0 mcg/mL [id number] 00:00:00 Test Item Value Reference Range Interpretation Comments LEVETIRACETAM (test code = 58117) 36.0 mcg/mL [id number] 00:00:00 Test Item Value Reference Range Interpretation Comments LEVETIRACETAM (test code = 57378) 36.0 mcg/mL [id number] 00:00:00 Test Item Value Reference Range Interpretation Comments LEVETIRACETAM (test code = 19594) 36.0 mcg/mL [id number] 00:00:00 Test Item Value Reference Range Interpretation Comments LEVETIRACETAM (test code = 27100) 36.0 mcg/mL [id number] 00:00:00 Test Item Value Reference Range Interpretation Comments LEVETIRACETAM (test code = 16749) 36.0 mcg/mL [id number] 00:00:00 Test Item Value Reference Range Interpretation Comments LEVETIRACETAM (test code = 54227) 36.0 mcg/mL [id number] 00:00:00 Test Item Value Reference Range Interpretation Comments LEVETIRACETAM (test code = 90988) 36.0 mcg/mL [id number] 00:00:00 Test Item Value Reference Range Interpretation Comments LEVETIRACETAM (test code = 90238) 36.0 mcg/mL [id number] 00:00:00 Test Item Value Reference Range Interpretation Comments LEVETIRACETAM (test code = 18586) 36.0 mcg/mL COMPREHENSIVE METABOLIC [id number] 00:00:00 Test Item Value Reference Range Interpretation Comments GLUCOSE (test code = 2217) 75 MG/DL BUN (test code = 2208) 13 MG/DL CREATININE (test code = 2214) 0.81 MG/DL eGFR AMER. (test code 95 ML/MIN/1.73 = 25376) eGFR NON- AMER. (test 82 ML/MIN/1.73 code = 74221) CALC BUN/CREAT (test code = 16 RATIO [...] code = 2219) 16 U/L COMPREHENSIVE METABOLIC [id number] 00:00:00 Test Item Value Reference Range Interpretation Comments GLUCOSE (test code = 2217) 75 MG/DL BUN (test code = 2208) 13 MG/DL CREATININE (test code = 2214) 0.81 MG/DL eGFR AMER. (test code 95 ML/MIN/1.73 = 45611) eGFR NON- AMER. (test 82 ML/MIN/1.73 code = 10043) CALC BUN/CREAT (test code = 16 RATIO [...] code = 2219) 16 U/L COMPREHENSIVE METABOLIC [id number] 00:00:00 Test Item Value Reference Range Interpretation Comments GLUCOSE (test code = 2217) 75 MG/DL BUN (test code = 2208) 13 MG/DL CREATININE (test code = 2214) 0.81 MG/DL eGFR AMER. (test code 95 ML/MIN/1.73 = 39769) eGFR NON- AMER. (test 82 ML/MIN/1.73 code = 58874) CALC BUN/CREAT (test code = 16 RATIO [...] A/G RATIO (test code = 1.9 RATIO 223) BILIRUBIN, TOTAL (test code = 0.4 MG/DL 2206) ALKALINE PHOSPHATASE (test 106 U/L code = 2204) AST (test code = 2218) 23 U/L ALT (test code = 2219) 16 U/L COMPREHENSIVE METABOLIC [id number] 00:00:00 Test Item Value Reference Range Interpretation Comments GLUCOSE (test code = 2217) 75 MG/DL BUN (test code = 2208) 13 MG/DL CREATININE (test code = 2214) 0.81 MG/DL eGFR AMER. (test code 95 ML/MIN/1.73 = 01600) eGFR NON- AMER. (test 82 ML/MIN/1.73 code = 86836) CALC BUN/CREAT (test code = 16 RATIO [...] code = 2219) 16 U/L COMPREHENSIVE METABOLIC [id number] 00:00:00 Test Item Value Reference Range Interpretation Comments GLUCOSE (test code = 2217) 75 MG/DL BUN (test code = 2208) 13 MG/DL CREATININE (test code = 2214) 0.81 MG/DL eGFR AMER. (test code 95 ML/MIN/1.73 = 93694) eGFR NON- AMER. (test 82 ML/MIN/1.73 code = 08676) CALC BUN/CREAT (test code = 16 RATIO 2235) SODIUM (test code = 2231) 143 MEQ/L POTASSIUM (test code = 2228) 3.6 MEQ/L CHLORIDE (test code = 2215) 99 MEQ/L CARBON DIOXIDE (test code = 27 MEQ/L 6) CALCIUM (test code = 2209) 9.5 MG/DL [...] code = 2219) 16 U/L COMPREHENSIVE METABOLIC [id number] 00:00:00 Test Item Value Reference Range Interpretation Comments GLUCOSE (test code = 2217) 75 MG/DL BUN (test code = 2208) 13 MG/DL CREATININE (test code = 2214) 0.81 MG/DL eGFR AMER. (test code 95 ML/MIN/1.73 = 10159) eGFR NON- AMER. (test 82 ML/MIN/1.73 code = 06668) CALC BUN/CREAT (test code = 16 RATIO [...] code = 2219) 16 U/L COMPREHENSIVE METABOLIC [id number] 00:00:00 Test Item Value Reference Range Interpretation Comments GLUCOSE (test code = 2217) 75 MG/DL BUN (test code = 2208) 13 MG/DL CREATININE (test code = 2214) 0.81 MG/DL eGFR AMER. (test code 95 ML/MIN/1.73 = 33622) eGFR NON- AMER. (test 82 ML/MIN/1.73 code = 24089) CALC BUN/CREAT (test code = 16 RATIO [...] code = 2219) 16 U/L COMPREHENSIVE METABOLIC [id number] 00:00:00 Test Item Value Reference Range Interpretation Comments GLUCOSE (test code = 2217) 75 MG/DL BUN (test code = 2208) 13 MG/DL CREATININE (test code = 2214) 0.81 MG/DL eGFR AMER. (test code 95 ML/MIN/1.73 = 86531) eGFR NON- AMER. (test 82 ML/MIN/1.73 code = 71745) CALC BUN/CREAT (test code = 16 RATIO [...] code = 2219) 16 U/L COMPREHENSIVE METABOLIC [id number] 00:00:00 Test Item Value Reference Range Interpretation Comments GLUCOSE (test code = 2217) 75 MG/DL BUN (test code = 2208) 13 MG/DL CREATININE (test code = 2214) 0.81 MG/DL eGFR AMER. (test code 95 ML/MIN/1.73 = 44686) eGFR NON- AMER. (test 82 ML/MIN/1.73 code = 91558) CALC BUN/CREAT (test code = 16 RATIO [...] BILIRUBIN, TOTAL (test code = 0.4 MG/DL 7) ALKALINE PHOSPHATASE (test 106 U/L code = 2204) AST (test code = 2218) 23 U/L ALT (test code = 2219) 16 U/L COMPREHENSIVE METABOLIC [id number] 00:00:00 Test Item Value Reference Range Interpretation Comments GLUCOSE (test code = 2217) 75 MG/DL BUN (test code = 2208) 13 MG/DL CREATININE (test code = 2214) 0.81 MG/DL eGFR AMER. (test code 95 ML/MIN/1.73 = 66364) eGFR NON- AMER. (test 82 ML/MIN/1.73 code = 38738) CALC BUN/CREAT (test code = 16 RATIO 2235) SODIUM (test code = 2231) 143 MEQ/L POTASSIUM (test code = 2228) 3.6 MEQ/L CHLORIDE (test code = 2215) 99 MEQ/L CARBON DIOXIDE (test code = 27 MEQ/L 6) CALCIUM (test code = 2209) 9.5 MG/DL [...] code = 2219) 16 U/L COMPREHENSIVE METABOLIC [id number] 00:00:00 Test Item Value Reference Range Interpretation Comments GLUCOSE (test code = 2217) 75 MG/DL BUN (test code = 2208) 13 MG/DL CREATININE (test code = 2214) 0.81 MG/DL eGFR AMER. (test code 95 ML/MIN/1.73 = 08012) eGFR NON- AMER. (test 82 ML/MIN/1.73 code = 31395) CALC BUN/CREAT (test code = 16 RATIO [...] BILIRUBIN, TOTAL (test code = 0.4 MG/DL 220) ALKALINE PHOSPHATASE (test 106 U/L code = 2204) AST (test code = 2218) 23 U/L ALT (test code = 2219) 16 U/L COMPREHENSIVE METABOLIC [id number] 00:00:00 Test Item Value Reference Range Interpretation Comments GLUCOSE (test code = 2217) 75 MG/DL BUN (test code = 2208) 13 MG/DL CREATININE (test code = 2214) 0.81 MG/DL eGFR AMER. (test code 95 ML/MIN/1.73 = 20344) eGFR NON- AMER. (test 82 ML/MIN/1.73 code = 54128) CALC BUN/CREAT (test code = 16 RATIO [...] BILIRUBIN, TOTAL (test code = 0.4 MG/DL 7) ALKALINE PHOSPHATASE (test 106 U/L code = 2204) AST (test code = 2218) 23 U/L ALT (test code = 2219) 16 U/L COMPREHENSIVE METABOLIC [id number] 00:00:00 Test Item Value Reference Range Interpretation Comments GLUCOSE (test code = 2217) 75 MG/DL BUN (test code = 2208) 13 MG/DL CREATININE (test code = 2214) 0.81 MG/DL eGFR AMER. (test code 95 ML/MIN/1.73 = 29069) eGFR NON- AMER. (test 82 ML/MIN/1.73 code = 67849) CALC BUN/CREAT (test code = 16 RATIO [...] code = 2219) 16 U/L COMPREHENSIVE METABOLIC [id number] 00:00:00 Test Item Value Reference Range Interpretation Comments GLUCOSE (test code = 2217) 75 MG/DL BUN (test code = 2208) 13 MG/DL CREATININE (test code = 2214) 0.81 MG/DL eGFR AMER. (test code 95 ML/MIN/1.73 = 69704) eGFR NON- AMER. (test 82 ML/MIN/1.73 code = 21396) CALC BUN/CREAT (test code = 16 RATIO [...] code = 2219) 16 U/L COMPREHENSIVE METABOLIC PANEL [ADDED]2018-09-26 00:00:00 Test Item Value Reference Range Interpretation Comments GLUCOSE (test code = 2217) 84 MG/DL BUN (test code = 2208) 11 MG/DL CREATININE (test code = 2214) 0.98 MG/DL eGFR AMER. (test code 75 ML/MIN/1.73 = 73223) eGFR NON- AMER. (test 65 ML/MIN/1.73 code = 03093) CALC BUN/CREAT (test code = 11 RATIO [...] eGFR AMER. (test code 75 ML/MIN/1.73 = 78134) eGFR NON- AMER. (test 65 ML/MIN/1.73 code = 25296) CALC BUN/CREAT (test code = 11 RATIO [...] = 0.5 MG/DL 7) ALKALINE PHOSPHATASE (test 107 U/L code = [...] Interpretation Comments HEMOGLOBIN A1c (test code = 69213) 4.9 % HEMOGLOBIN A1c [ADDED]2018-09-26 00:00:00 Test Item Value Reference Range Interpretation Comments HEMOGLOBIN A1c (test code = 22512) 4.9 % HEMOGLOBIN A1c [ADDED]2018-09-26 00:00:00 Test Item Value Reference Range Interpretation Comments HEMOGLOBIN A1c (test code = 26126) 4.9 % TSH, THIRD GENERATION [ADDED]2018-09-26 00:00:00 [...] eGFR AMER. (test code 75 ML/MIN/1.73 = 29631) eGFR NON- AMER. (test 65 ML/MIN/1.73 code = 68569) CALC BUN/CREAT (test code = 11 RATIO [...] eGFR AMER. (test code 75 ML/MIN/1.73 = 15110) eGFR NON- AMER. (test 65 ML/MIN/1.73 code = 21640) CALC BUN/CREAT (test code = 11 RATIO [...] = 0.5 MG/DL 7) ALKALINE PHOSPHATASE (test 107 U/L code = [...] Interpretation Comments HEMOGLOBIN A1c (test code = 14916) 4.9 % HEMOGLOBIN A1c [ADDED]2018-09-26 00:00:00 Test Item Value Reference Range Interpretation Comments HEMOGLOBIN A1c (test code = 31615) 4.9 % HEMOGLOBIN A1c [ADDED]2018-09-26 00:00:00 Test Item Value Reference Range Interpretation Comments HEMOGLOBIN A1c (test code = 70008) 4.9 % TSH, THIRD GENERATION [ADDED]2018-09-26 00:00:00 [...] eGFR AMER. (test code 75 ML/MIN/1.73 = 64741) eGFR NON- AMER. (test 65 ML/MIN/1.73 code = 86450) CALC BUN/CREAT (test code = 11 RATIO [...] eGFR AMER. (test code 75 ML/MIN/1.73 = 08710) eGFR NON- AMER. (test 65 ML/MIN/1.73 code = 18111) CALC BUN/CREAT (test code = 11 RATIO [...] Interpretation Comments HEMOGLOBIN A1c (test code = 47457) 4.9 % HEMOGLOBIN A1c [ADDED]2018-09-26 00:00:00 Test Item Value Reference Range Interpretation Comments HEMOGLOBIN A1c (test code = 30653) 4.9 % HEMOGLOBIN A1c [ADDED]2018-09-26 00:00:00 Test Item Value Reference Range Interpretation Comments HEMOGLOBIN A1c (test code = 19181) 4.9 % TSH, THIRD GENERATION [ADDED]2018-09-26 00:00:00 [...] eGFR AMER. (test code 75 ML/MIN/1.73 = 93770) eGFR NON- AMER. (test 65 ML/MIN/1.73 code = 94274) CALC BUN/CREAT (test code = 11 RATIO [...] eGFR AMER. (test code 75 ML/MIN/1.73 = 85166) eGFR NON- AMER. (test 65 ML/MIN/1.73 code = 00440) CALC BUN/CREAT (test code = 11 RATIO [...] eGFR AMER. (test code 75 ML/MIN/1.73 = 22084) eGFR NON- AMER. (test 65 ML/MIN/1.73 code = 43020) CALC BUN/CREAT (test code = 11 RATIO 2235) SODIUM (test code = 2231) 148 MEQ/L POTASSIUM (test code = 2228) 4.1 MEQ/L CHLORIDE (test code = 2215) 106 MEQ/L CARBON DIOXIDE (test code = 32 MEQ/L 2205) CALCIUM (test code = 2209) 9.6 MG/DL PROTEIN, TOTAL (test code = 6.6 G/DL 9) ALBUMIN (test code = 2201) [...] Interpretation Comments HEMOGLOBIN A1c (test code = 05404) 4.9 % HEMOGLOBIN A1c [ADDED]2018-09-26 00:00:00 Test Item Value Reference Range Interpretation Comments HEMOGLOBIN A1c (test code = 05501) 4.9 % HEMOGLOBIN A1c [ADDED]2018-09-26 00:00:00 Test Item Value Reference Range Interpretation Comments HEMOGLOBIN A1c (test code = 57378) 4.9 % TSH, THIRD GENERATION [ADDED]2018-09-26 00:00:00 [...] eGFR AMER. (test code 75 ML/MIN/1.73 = 51644) eGFR NON- AMER. (test 65 ML/MIN/1.73 code = 94358) CALC BUN/CREAT (test code = 11 RATIO [...] Interpretation Comments HEMOGLOBIN A1c (test code = 09826) 4.9 % HEMOGLOBIN A1c [ADDED]2018-09-26 00:00:00 Test Item Value Reference Range Interpretation Comments HEMOGLOBIN A1c (test code = 96371) 4.9 % HEMOGLOBIN A1c [ADDED]2018-09-26 00:00:00 Test Item Value Reference Range Interpretation Comments HEMOGLOBIN A1c (test code = 84221) 4.9 % TSH, THIRD GENERATION [ADDED]2018-09-26 00:00:00 [...] eGFR AMER. (test code 75 ML/MIN/1.73 = 33570) eGFR NON- AMER. (test 65 ML/MIN/1.73 code = 46633) CALC BUN/CREAT (test code = 11 RATIO [...] eGFR AMER. (test code 75 ML/MIN/1.73 = 09690) eGFR NON- AMER. (test 65 ML/MIN/1.73 code = 74226) CALC BUN/CREAT (test code = 11 RATIO [...] Interpretation Comments HEMOGLOBIN A1c (test code = 90449) 4.9 % HEMOGLOBIN A1c [ADDED]2018-09-26 00:00:00 Test Item Value Reference Range Interpretation Comments HEMOGLOBIN A1c (test code = 19215) 4.9 % HEMOGLOBIN A1c [ADDED]2018-09-26 00:00:00 Test Item Value Reference Range Interpretation Comments HEMOGLOBIN A1c (test code = 46378) 4.9 % TSH, THIRD GENERATION [ADDED]2018-09-26 00:00:00 [...] eGFR AMER. (test code 75 ML/MIN/1.73 = 82472) eGFR NON- AMER. (test 65 ML/MIN/1.73 code = 68969) CALC BUN/CREAT (test code = 11 RATIO [...] eGFR AMER. (test code 75 ML/MIN/1.73 = 38970) eGFR NON- AMER. (test 65 ML/MIN/1.73 code = 28691) CALC BUN/CREAT (test code = 11 RATIO [...] Interpretation Comments HEMOGLOBIN A1c (test code = 65399) 4.9 % HEMOGLOBIN A1c [ADDED]2018-09-26 00:00:00 Test Item Value Reference Range Interpretation Comments HEMOGLOBIN A1c (test code = 19263) 4.9 % HEMOGLOBIN A1c [ADDED]2018-09-26 00:00:00 Test Item Value Reference Range Interpretation Comments HEMOGLOBIN A1c (test code = 78571) 4.9 % TSH, THIRD GENERATION [ADDED]2018-09-26 00:00:00 [...] GENERATION (test code 2.180 UIU/ML = 2821) CBC W/AUTO [id number] 00:00:00 Test Item Value Reference Range Interpretation [...] code = 1015) 183 K/UL CBC W/AUTO [id number] 00:00:00 Test Item Value Reference Range Interpretation [...] code = 1015) 183 K/UL CBC W/AUTO [id number] 00:00:00 Test Item Value Reference Range Interpretation [...] COUNT (test code = 1015) 183 K/UL [id number] 00:00:00 Test Item Value Reference Range Interpretation Comments TSH, THIRD GENERATION (test code 2.510 UIU/ML = 2821) [id number] 00:00:00 Test Item Value Reference Range Interpretation Comments TSH, THIRD GENERATION (test code 2.510 UIU/ML = 2821) [id number] 00:00:00 Test Item Value Reference Range Interpretation Comments TSH, THIRD GENERATION (test code 2.510 UIU/ML = 2821) COMPREHENSIVE METABOLIC [id number] 00:00:00 Test Item Value Reference Range Interpretation Comments GLUCOSE (test code = 2217) 81 MG/DL BUN (test code = 2208) 18 MG/DL CREATININE (test code = 2214) 0.86 MG/DL eGFR AMER. (test code 88 ML/MIN/1.73 = 27951) eGFR NON- AMER. (test 76 ML/MIN/1.73 code = 51060) CALC BUN/CREAT (test code = 21 RATIO [...] code = 2219) 14 U/L COMPREHENSIVE METABOLIC [id number] 00:00:00 Test Item Value Reference Range Interpretation Comments GLUCOSE (test code = 2217) 81 MG/DL BUN (test code = 2208) 18 MG/DL CREATININE (test code = 2214) 0.86 MG/DL eGFR AMER. (test code 88 ML/MIN/1.73 = 45158) eGFR NON- AMER. (test 76 ML/MIN/1.73 code = 72033) CALC BUN/CREAT (test code = 21 RATIO [...] code = 2219) 14 U/L CBC W/AUTO [id number] 00:00:00 Test Item Value Reference Range Interpretation [...] code = 1015) 183 K/UL CBC W/AUTO [id number] 00:00:00 Test Item Value Reference Range Interpretation [...] code = 1015) 183 K/UL CBC W/AUTO [id number] 00:00:00 Test Item Value Reference Range Interpretation [...] COUNT (test code = 1015) 183 K/UL [id number] 00:00:00 Test Item Value Reference Range Interpretation Comments TSH, THIRD GENERATION (test code 2.510 UIU/ML = 2821) [id number] 00:00:00 Test Item Value Reference Range Interpretation Comments TSH, THIRD GENERATION (test code 2.510 UIU/ML = 2821) [id number] 00:00:00 Test Item Value Reference Range Interpretation Comments TSH, THIRD GENERATION (test code 2.510 UIU/ML = 2821) COMPREHENSIVE METABOLIC [id number] 00:00:00 Test Item Value Reference Range Interpretation Comments GLUCOSE (test code = 2217) 81 MG/DL BUN (test code = 2208) 18 MG/DL CREATININE (test code = 2214) 0.86 MG/DL eGFR AMER. (test code 88 ML/MIN/1.73 = 03144) eGFR NON- AMER. (test 76 ML/MIN/1.73 code = 61549) CALC BUN/CREAT (test code = 21 RATIO [...] code = 2219) 14 U/L COMPREHENSIVE METABOLIC [id number] 00:00:00 Test Item Value Reference Range Interpretation Comments GLUCOSE (test code = 2217) 81 MG/DL BUN (test code = 2208) 18 MG/DL CREATININE (test code = 2214) 0.86 MG/DL eGFR AMER. (test code 88 ML/MIN/1.73 = 26164) eGFR NON- AMER. (test 76 ML/MIN/1.73 code = 66606) CALC BUN/CREAT (test code = 21 RATIO [...] code = 2219) 14 U/L CBC W/AUTO [id number] 00:00:00 Test Item Value Reference Range Interpretation [...] code = 1015) 183 K/UL CBC W/AUTO [id number] 00:00:00 Test Item Value Reference Range Interpretation [...] code = 1015) 183 K/UL CBC W/AUTO [id number] 00:00:00 Test Item Value Reference Range Interpretation [...] COUNT (test code = 1015) 183 K/UL [id number] 00:00:00 Test Item Value Reference Range Interpretation Comments TSH, THIRD GENERATION (test code 2.510 UIU/ML = 2821) [id number] 00:00:00 Test Item Value Reference Range Interpretation Comments TSH, THIRD GENERATION (test code 2.510 UIU/ML = 2821) [id number] 00:00:00 Test Item Value Reference Range Interpretation Comments TSH, THIRD GENERATION (test code 2.510 UIU/ML = 2821) COMPREHENSIVE METABOLIC [id number] 00:00:00 Test Item Value Reference Range Interpretation Comments GLUCOSE (test code = 2217) 81 MG/DL BUN (test code = 2208) 18 MG/DL CREATININE (test code = 2214) 0.86 MG/DL eGFR AMER. (test code 88 ML/MIN/1.73 = 53442) eGFR NON- AMER. (test 76 ML/MIN/1.73 code = 86823) CALC BUN/CREAT (test code = 21 RATIO [...] code = 2219) 14 U/L COMPREHENSIVE METABOLIC [id number] 00:00:00 Test Item Value Reference Range Interpretation Comments GLUCOSE (test code = 2217) 81 MG/DL BUN (test code = 2208) 18 MG/DL CREATININE (test code = 2214) 0.86 MG/DL eGFR AMER. (test code 88 ML/MIN/1.73 = 84679) eGFR NON- AMER. (test 76 ML/MIN/1.73 code = 54977) CALC BUN/CREAT (test code = 21 RATIO [...] code = 2219) 14 U/L CBC W/AUTO [id number] 00:00:00 Test Item Value Reference Range Interpretation [...] code = 1015) 183 K/UL CBC W/AUTO [id number] 00:00:00 Test Item Value Reference Range Interpretation [...] code = 1015) 183 K/UL CBC W/AUTO [id number] 00:00:00 Test Item Value Reference Range Interpretation [...] code = 1015) 183 K/UL CBC W/AUTO [id number] 00:00:00 Test Item Value Reference Range Interpretation [...] COUNT (test code = 1015) 183 K/UL [id number] 00:00:00 Test Item Value Reference Range Interpretation Comments TSH, THIRD GENERATION (test code 2.510 UIU/ML = 2821) [id number] 00:00:00 Test Item Value Reference Range Interpretation Comments TSH, THIRD GENERATION (test code 2.510 UIU/ML = 2821) [id number] 00:00:00 Test Item Value Reference Range Interpretation Comments TSH, THIRD GENERATION (test code 2.510 UIU/ML = 2821) COMPREHENSIVE METABOLIC [id number] 00:00:00 Test Item Value Reference Range Interpretation Comments GLUCOSE (test code = 2217) 81 MG/DL BUN (test code = 2208) 18 MG/DL CREATININE (test code = 2214) 0.86 MG/DL eGFR AMER. (test code 88 ML/MIN/1.73 = 06015) eGFR NON- AMER. (test 76 ML/MIN/1.73 code = 10972) CALC BUN/CREAT (test code = 21 RATIO [...] code = 2219) 14 U/L COMPREHENSIVE METABOLIC [id number] 00:00:00 Test Item Value Reference Range Interpretation Comments GLUCOSE (test code = 2217) 81 MG/DL BUN (test code = 2208) 18 MG/DL CREATININE (test code = 2214) 0.86 MG/DL eGFR AMER. (test code 88 ML/MIN/1.73 = 38866) eGFR NON- AMER. (test 76 ML/MIN/1.73 code = 44098) CALC BUN/CREAT (test code = 21 RATIO [...] code = 2219) 14 U/L CBC W/AUTO [id number] 00:00:00 Test Item Value Reference Range Interpretation [...] code = 1015) 183 K/UL CBC W/AUTO [id number] 00:00:00 Test Item Value Reference Range Interpretation [...] COUNT (test code = 1015) 183 K/UL [id number] 00:00:00 Test Item Value Reference Range Interpretation Comments TSH, THIRD GENERATION (test code 2.510 UIU/ML = 2821) [id number] 00:00:00 Test Item Value Reference Range Interpretation Comments TSH, THIRD GENERATION (test code 2.510 UIU/ML = 2821) [id number] 00:00:00 Test Item Value Reference Range Interpretation Comments TSH, THIRD GENERATION (test code 2.510 UIU/ML = 2821) COMPREHENSIVE METABOLIC [id number] 00:00:00 Test Item Value Reference Range Interpretation Comments GLUCOSE (test code = 2217) 81 MG/DL BUN (test code = 2208) 18 MG/DL CREATININE (test code = 2214) 0.86 MG/DL eGFR AMER. (test code 88 ML/MIN/1.73 = 93958) eGFR NON- AMER. (test 76 ML/MIN/1.73 code = 96900) CALC BUN/CREAT (test code = 21 RATIO [...] code = 2219) 14 U/L COMPREHENSIVE METABOLIC [id number] 00:00:00 Test Item Value Reference Range Interpretation Comments GLUCOSE (test code = 2217) 81 MG/DL BUN (test code = 2208) 18 MG/DL CREATININE (test code = 2214) 0.86 MG/DL eGFR AMER. (test code 88 ML/MIN/1.73 = 78442) eGFR NON- AMER. (test 76 ML/MIN/1.73 code = 72470) CALC BUN/CREAT (test code = 21 RATIO [...] BILIRUBIN, TOTAL (test code = 0.3 MG/DL 7) ALKALINE PHOSPHATASE (test 91 U/L code = 2204) AST (test code = 2218) 19 U/L ALT (test code = 2219) 14 U/L CBC W/AUTO [id number] 00:00:00 Test Item Value Reference Range Interpretation [...] code = 1015) 183 K/UL CBC W/AUTO [id number] 00:00:00 Test Item Value Reference Range Interpretation [...] code = 1015) 183 K/UL CBC W/AUTO [id number] 00:00:00 Test Item Value Reference Range Interpretation [...] COUNT (test code = 1015) 183 K/UL [id number] 00:00:00 Test Item Value Reference Range Interpretation Comments TSH, THIRD GENERATION (test code 2.510 UIU/ML = 2821) [id number] 00:00:00 Test Item Value Reference Range Interpretation Comments TSH, THIRD GENERATION (test code 2.510 UIU/ML = 2821) [id number] 00:00:00 Test Item Value Reference Range Interpretation Comments TSH, THIRD GENERATION (test code 2.510 UIU/ML = 2821) COMPREHENSIVE METABOLIC [id number] 00:00:00 Test Item Value Reference Range Interpretation Comments GLUCOSE (test code = 2217) 81 MG/DL BUN (test code = 2208) 18 MG/DL CREATININE (test code = 2214) 0.86 MG/DL eGFR AMER. (test code 88 ML/MIN/1.73 = 43190) eGFR NON- AMER. (test 76 ML/MIN/1.73 code = 31551) CALC BUN/CREAT (test code = 21 RATIO [...] code = 2219) 14 U/L COMPREHENSIVE METABOLIC [id number] 00:00:00 Test Item Value Reference Range Interpretation Comments GLUCOSE (test code = 2217) 81 MG/DL BUN (test code = 2208) 18 MG/DL CREATININE (test code = 2214) 0.86 MG/DL eGFR AMER. (test code 88 ML/MIN/1.73 = 68227) eGFR NON- AMER. (test 76 ML/MIN/1.73 code = 11219) CALC BUN/CREAT (test code = 21 RATIO [...] code = 2219) 14 U/L CBC W/AUTO [id number] 00:00:00 Test Item Value Reference Range Interpretation [...] code = 1015) 183 K/UL CBC W/AUTO [id number] 00:00:00 Test Item Value Reference Range Interpretation [...] code = 1015) 183 K/UL CBC W/AUTO [id number] 00:00:00 Test Item Value Reference Range Interpretation [...] COUNT (test code = 1015) 183 K/UL [id number] 00:00:00 Test Item Value Reference Range Interpretation Comments TSH, THIRD GENERATION (test code 2.510 UIU/ML = 2821) [id number] 00:00:00 Test Item Value Reference Range Interpretation Comments TSH, THIRD GENERATION (test code 2.510 UIU/ML = 2821) [id number] 00:00:00 Test Item Value Reference Range Interpretation Comments TSH, THIRD GENERATION (test code 2.510 UIU/ML = 2821) COMPREHENSIVE METABOLIC [id number] 00:00:00 Test Item Value Reference Range Interpretation Comments GLUCOSE (test code = 2217) 81 MG/DL BUN (test code = 2208) 18 MG/DL CREATININE (test code = 2214) 0.86 MG/DL eGFR AMER. (test code 88 ML/MIN/1.73 = 78275) eGFR NON- AMER. (test 76 ML/MIN/1.73 code = 47314) CALC BUN/CREAT (test code = 21 RATIO [...] code = 2219) 14 U/L COMPREHENSIVE METABOLIC [id number] 00:00:00 Test Item Value Reference Range Interpretation Comments GLUCOSE (test code = 2217) 81 MG/DL BUN (test code = 2208) 18 MG/DL CREATININE (test code = 2214) 0.86 MG/DL eGFR AMER. (test code 88 ML/MIN/1.73 = 48968) eGFR NON- AMER. (test 76 ML/MIN/1.73 code = 22820) CALC BUN/CREAT (test code = 21 RATIO [...]
[2022-05-15 09:35] LABS: Bilirubin Total 0.5 mg/dL (0.2-1.0); Magnesium 2.3 mg/dL (1.6-2.4); Potassium 3.2 mmol/L (3.5-5.1); Protein, Total 7.2 g/dL (6.4-8.2)
--- NOTE | 2022-05-15 10:51 | ER ---
Nurse's Notes [facility] Name: Pati Romero Age: 57 yrs Sex: Female : 1965 Arrival Date: 05/15/2022 Time: 08:56 Bed 8 Private MD: Diagnosis: Benign paroxysmal vertigo Presentation: 05/15 08:57 Chief complaint: EMS states: Was at [facility], had a syncopal episode, reports ph dizziness and headache for "a few days", states that she recently started a new antidepressant that she thinks may be causing her symptoms. Also reports hx of headaches and vertigo, states that her symptoms today feel similar to previous episodes. 12 lead NSR. Coronavirus screen: Vaccine status: Patient reports receiving the 2nd dose of the covid vaccine. Ebola Screen: No symptoms or risks identified at this time. Initial Sepsis Screen: Does the patient meet any 2 criteria? No. Patient's initial sepsis screen is negative. Does the patient have a suspected source of infection? No. Patient's initial sepsis screen is negative. Risk Assessment: Do you want to hurt yourself or someone else? Patient reports no desire to harm self or others. Onset of symptoms was May 15, 2022. 08:57 Method Of Arrival: EMS: [facility] ph 08:57 Acuity: SUSAN 3 ph Historical: - Allergies: 09:02 Demerol; ph - Home Meds: 09:02 Abilify 2 mg Oral tab nightly [Active]; famotidine 20 mg Oral tab 1 tab 2 times per day ph [Active]; indomethacin 50 mg Oral cap QID PRN [Active]; Keppra Oral [Active]; Lamictal 200 mg Oral tab [Active]; levothyroxine 150 mcg tab 1 tab once daily [Active]; lisinopril-hydrochlorothiazide 20-12.5 mg Oral tab 1 tab once daily [Active]; Norvasc Oral [Active]; Norvasc 10 mg Oral tab 1 tab once daily [Active]; Paxil 40 mg Oral tab once daily [Active]; Wellbutrin XL 150 mg Oral Tb24 1 tab once daily [Active]; - PMHx: 09:02 brain aneurysm with metal; pt was 26 yrs old; Depression; Hypertension; Hypothyroidism; ph Seizures; - PSHx: 09:02 Appendectomy; hysterectomy; ph - Immunization history:: Adult Immunizations unknown. - Social history:: Smoking status: Patient denies any tobacco usage or history of. - Family history:: not pertinent. Vital Signs: 08:57 BP 110 / 81; Pulse 79; Resp 18; Temp 97.4; Pulse Ox 96% on R/A; ph NIH Stroke Scale Scores: 08:57 NIHSS Score: 0 ph ED Course: 08:56 Patient arrived in ED. ph 08:57 Horace Lorenzo MD is Attending Physician. rt 09:02 Triage completed. ph 09:04 Pati Cabrera, JAE is Primary Nurse. ph Administered Medications: 09:23 Drug: NS 0.9% 1000 ml Route: IV; Rate: 1 bolus; Site: right antecubital; ph 10:51 Follow up: Response: No adverse reaction; IV Status: Completed infusion; IV Intake: ph 1000ml 09:23 Drug: Meclizine 50 mg Route: PO; ph 10:51 Follow up: Response: No adverse reaction; Marked relief of symptoms ph 09:23 Drug: Tylenol 1000 mg Route: PO; ph 10:50 Follow up: Response: No adverse reaction; Marked relief of symptoms ph 10:49 Not Given (Other Intervention Used): Zofran (Ondansetron) 4 mg IVP once; over 2 minutes ph Intake: 10:51 IV: 1000ml; Total: 1000ml. ph Outcome: 10:50 Discharge ordered by . rt 11:21 Patient left the ED. ph NIH Stroke Scale - NIH Stroke Score Date: 05/15/2022 Time: 08:57 Total Score = 0 1a. Level of Consciousness (LOC) - 0(Alert) 1b. Level of Consciousness (LOC) (Month \\T\\ Age) - 0(Both) 1c. LOC Commands (Open \\T\\ Closes Eyes/Emblem Maker) - 0(Both) 2. Best Gaze (Lateral Gaze Paresis) - 0(Normal) 3. Visual Field Loss - 0(No visual loss) 4. Facial Palsy - 0(Normal) 5a. Left Arm: Motor (10-second hold) - 0(No drift) 5b. Right Arm: Motor (10-second hold) - 0(No drift) 6a. Left Leg: Motor (5-second hold - always test supine) - 0(No drift) 6b. Right Leg: Motor (5-second hold - always test supine) - 0(No drift) 7. Limb Ataxia (finger/nose \\T\\ heel/rai - test with eyes open) - 0(Absent) 8. Sensory Loss (pinprick arms/legs/face) - 0(Normal) 9. Best Language: Aphasia (description/naming/reading) - 0(No aphasia) 10. Dysarthria (speech clarity - read or repeat words) - 0(Normal) 11. Extinction and Inattention (visual/tactile/auditory/spatial/personal) - 0(No abnormality) Initials: ph Signatures: Pati Cabrera, JAE RN ph Horace Lorenzo MD MD rt
--- NOTE | 2022-05-15 10:51 | EDPHYS ---
Physician Documentation [facility] Name: Pati Romero Age: 57 yrs Sex: Female : 1965 Arrival Date: 05/15/2022 Time: 08:56 Bed 8 Private MD: ED Physician Horace Lorenzo HPI: 05/15 09:17 This 57 yrs old Female presents to ER via EMS with complaints of Dizziness, rt Syncope. 09:17 Patient presents to the ED with dizziness, syncopal episode. The patient states that rt she has been on her stable doses of Lamictal and Keppra for seizures and tremors, however, she started a new antidepressant about 1 week ago, cannot recall what this is. The patient states that she feels dizzy, described as vertigo. Patient states that she does have a history of vertigo. She also reports a frontal headache which she says is very common for her to have typically relieved with Tylenol. Patient reportedly did have a syncopal event, states that she did not believe that she injured her head. She reports having continued vertigo at this time. Denies other acute complaints, symptoms are moderate in severity, no other aggravating or alleviating factors.. Historical: - Allergies: 09:02 Demerol; ph - Home Meds: 09:02 Abilify 2 mg Oral tab nightly [Active]; famotidine 20 mg Oral tab 1 tab 2 times per day ph [Active]; indomethacin 50 mg Oral cap QID PRN [Active]; Keppra Oral [Active]; Lamictal 200 mg Oral tab [Active]; levothyroxine 150 mcg tab 1 tab once daily [Active]; lisinopril-hydrochlorothiazide 20-12.5 mg Oral tab 1 tab once daily [Active]; Norvasc Oral [Active]; Norvasc 10 mg Oral tab 1 tab once daily [Active]; Paxil 40 mg Oral tab once daily [Active]; Wellbutrin XL 150 mg Oral Tb24 1 tab once daily [Active]; - PMHx: 09:02 brain aneurysm with metal; pt was 26 yrs old; Depression; Hypertension; Hypothyroidism; ph Seizures; - PSHx: 09:02 Appendectomy; hysterectomy; ph - Immunization history:: Adult Immunizations unknown. - Social history:: Smoking status: Patient denies any tobacco usage or history of. - Family history:: not pertinent. ROS: 09:17 Constitutional: Negative for fever, chills, and weight loss, Cardiovascular: Negative rt for chest pain, palpitations, and edema, Respiratory: Negative for shortness of breath, cough, wheezing, and pleuritic chest pain, MS/Extremity: Negative for injury and deformity, Skin: Negative for injury, rash, and discoloration, Psych: Negative for depression, anxiety, suicide ideation, homicidal ideation, and hallucinations. 09:17 Abdomen/GI: Positive for nausea, Negative for abdominal pain, vomiting. :17 Neuro: Positive for dizziness, syncope. Exam: :17 Constitutional: This is a well developed, well nourished patient who is awake, alert, rt and in no acute distress. Head/Face: Normocephalic, atraumatic. Eyes: Pupils equal round and reactive to light, extra-ocular motions intact. Lids and lashes normal. Conjunctiva and sclera are non-icteric and not injected. Cornea within normal limits. Periorbital areas with no swelling, redness, or edema. ENT: Nares patent. No nasal discharge, no septal abnormalities noted. Tympanic membranes are normal and external auditory canals are clear. Oropharynx with no redness, swelling, or masses, exudates, or evidence of obstruction, uvula midline. Mucous membranes moist. Chest/axilla: Normal chest wall appearance and motion. Nontender with no deformity. No lesions are appreciated. Cardiovascular: Regular rate and rhythm with a normal S1 and S2. No gallops, murmurs, or rubs. Normal PMI, no JVD. No pulse deficits. Respiratory: Lungs have equal breath sounds bilaterally, clear to auscultation and percussion. No rales, rhonchi or wheezes noted. No increased work of breathing, no retractions or nasal flaring. Abdomen/GI: Soft, non-tender, with normal bowel sounds. No distension or tympany. No guarding or rebound. No evidence of tenderness throughout. Skin: Warm, dry with normal turgor. Normal color with no rashes, no lesions, and no evidence of cellulitis. MS/ Extremity: Pulses equal, no cyanosis. Neurovascular intact. Full, normal range of motion. Psych: Awake, alert, with orientation to person, place and time. Behavior, mood, and affect are within normal limits. 09:17 Neuro: Cranial nerves II through XII intact, strength and sensation intact in upper and lower extremities. Tremor at rest noted. 2-3 beats of irregular nystagmus on lateral gaze, head impulse and test of skew negative, no visual field deficits.. 09:20 ECG was reviewed by the Attending Physician. rt Vital Signs: 08:57 BP 110 / 81; Pulse 79; Resp 18; Temp 97.4; Pulse Ox 96% on R/A; ph NIH Stroke Scale Scores: 08:57 NIHSS Score: 0 ph MDM: 08:57 Patient medically screened. rt 10:50 Differential diagnosis: Vertigo, dysrhythmia, CVA, volume depletion, electrolyte rt disturbance, acute coronary syndrome. Data reviewed: vital signs, nurses notes, lab test result(s), EKG, radiologic studies. Consideration of Admission/Observation Escalation of care including admission/observation considered. I considered the following discharge prescriptions or medication management in the emergency department Medications were administered in the Emergency Department. See MAR. Test considered but Not performed: CT: Patient states that this headache and vertigo are pre-existing, unchanged, no focal neurologic deficits, HI NTS exam is consistent with a positional vertigo, lower suspicion for acute CVA, hemorrhage. After discussion with patient, she does not wish to get a CT scan, will forego this, patient to return for worsening symptoms.. Care significantly affected by the following chronic conditions: Hypertension. Counseling: I had a detailed discussion with the patient and/or guardian regarding: the historical points, exam findings, and any diagnostic results supporting the discharge/admit diagnosis, lab results, the need for outpatient follow up. Response to treatment: the patient's symptoms have resolved after treatment. 05/15 08:58 Order name: CBC with Diff rt 05/15 08:58 Order name: CMP rt 05/15 08:58 Order name: Magnesium rt 05/15 08:58 Order name: EKG; Complete Time: 08:58 rt 05/15 08:58 Order name: EKG - Nurse/Tech; Complete Time: 09:23 rt 05/15 08:58 Order name: Troponin High Sensitivity rt 05/15 09:18 Order name: CBC with Automated Diff; Complete Time: :58 EDMS 05/15 09:36 Order name: Comprehensive Metabolic Panel; Complete Time: 09:58 EDMS 05/15 09:36 Order name: Troponin High Sensitivity; Complete Time: 09:58 EDMS 05/15 09:36 Order name: Magnesium; Complete Time: :58 EDMS EC:20 Rate is 67 beats/min. Rhythm is regular, Normal Sinus Rhythm with No ectopy. QRS [place] rt is Normal. NE interval is normal. QRS interval is normal. QT interval is normal at 458 msec. No Q waves. Clinical impression: NSR w/ Non-specific ST/T Changes. Administered Medications: : Drug: NS 0.9% 1000 ml Route: IV; Rate: 1 bolus; Site: right antecubital; ph 10:51 Follow up: Response: No adverse reaction; IV Status: Completed infusion; IV Intake: ph 1000ml : Drug: Meclizine 50 mg Route: PO; ph 10:51 Follow up: Response: No adverse reaction; Marked relief of symptoms ph 09:23 Drug: Tylenol 1000 mg Route: PO; ph 10:50 Follow up: Response: No adverse reaction; Marked relief of symptoms ph 10:49 Not Given (Other Intervention Used): Zofran (Ondansetron) 4 mg IVP once; over 2 minutes ph Disposition Summary: 05/15/22 10:50 Discharge Ordered Location: Home rt Problem: an acute exacerbation rt Symptoms: are resolved rt Condition: Stable rt Diagnosis - Benign paroxysmal vertigo rt Followup: rt - With: Private Physician - When: 2 - 3 days - Reason: Discharge Instructions: - Discharge Summary Sheet rt - Benign Positional Vertigo rt Forms: - Medication Reconciliation Form rt - Thank You Letter rt - Antibiotic Education rt - Prescription Opioid Use rt NIH Stroke Scale - NIH Stroke Score Date: 05/15/2022 Time: 08:57 Total Score = 0 1a. Level of Consciousness (LOC) - 0(Alert) 1b. Level of Consciousness (LOC) (Month \T\ Age) - 0(Both) 1c. LOC Commands (Open \T\ Closes Eyes/Systems Qa Analyst) - 0(Both) 2. Best Gaze (Lateral Gaze Paresis) - 0(Normal) 3. Visual Field Loss - 0(No visual loss) 4. Facial Palsy - 0(Normal) 5a. Left Arm: Motor (10-second hold) - 0(No drift) 5b. Right Arm: Motor (10-second hold) - 0(No drift) 6a. Left Leg: Motor (5-second hold - always test supine) - 0(No drift) 6b. Right Leg: Motor (5-second hold - always test supine) - 0(No drift) 7. Limb Ataxia (finger/nose \T\ heel/rai - test with eyes open) - 0(Absent) 8. Sensory Loss (pinprick arms/legs/face) - 0(Normal) 9. Best Language: Aphasia (description/naming/reading) - 0(No aphasia) 10. Dysarthria (speech clarity - read or repeat words) - 0(Normal) 11. Extinction and Inattention (visual/tactile/auditory/spatial/personal) - 0(No abnormality) Initials: ph Signatures: Dispatcher [employer] Pati Jiménez RN RN ph Horace Lorenzo MD MD rt
--- NOTE | 2022-05-15 16:36 | EKG ---
Test Date: 2022-05-15 Test Time: 09:18:38 Duct Layer: HARRIET MEASUREMENT RESULTS: Intervals: Rate: 67 AK: 166 QRSD: 98 QT: 434 QTc: 458 Darby: P: 47 AK: 166 QRS: -1 T: 104 INTERPRETIVE STATEMENTS: Normal sinus rhythm Nonspecific T wave abnormality Abnormal ECG Compared to ECG 11/22/2021 13:46:51 T-wave abnormality now present Myocardial infarct finding no longer present Electronically Signed On 05-15-22 16:35:22 SPEECH COMMUNICATION PROFESSOR by Harry Torres
== END 2022-05-15 11:21 | disposition home or self-care (01) ==
LOC: ER 08:50
DX: H81.10 Benign paroxysmal vertigo, unspecified ear (principal); I10 Essential (primary) hypertension; Z88.5 Allergy status to narcotic agent
CPT/HCPCS: 93005; 85025; 36415; 83735; 84484; 80053; 96360; 99283; J8597; J7030; J2405

== ENCOUNTER 2024-05-09 16:43 | Inpatient (IN) | payer OTHER ==
[2024-05-09] MEDS ORDERED: IBUPROFEN 200 MG TAB PO ONE (17:11)
--- NOTE | 2024-05-09 17:54 | RAD REPORT ---
EXAM: CT CHEST, ABDOMEN AND PELVIS WITHOUT CONTRAST CLINICAL INDICATION: Female, 59 years old fall/trauma R flank pain TECHNIQUE: CT chest, abdomen and pelvis was performed, without IV contrast, as per [facility]. Axial, sagittal and coronal reconstructions were obtained. One or more of the following dose reduction techniques were used: Automated exposure control, adjustment of the mA and/or kV according to the patient size, and/or iterative reconstruction. Unless otherwise specified, incidental findings do not require dedicated imaging follow-up. [id number]. COMPARISON: No prior exam. FINDINGS: The lack of intravenous contrast limits the sensitivity of this exam for evaluation of solid visceral organs, vascular structures, and retroperitoneum. THORAX: LOWER NECK AND CHEST WALL: Visualized thyroid gland and soft tissues are normal. LUNGS AND AIRWAYS: Airways are clear. No evidence of airspace or interstitial process.No suspicious a nd/or stable pulmonary nodules. PLEURA: Trace right pleural effusion. MEDIASTINUM AND LYMPH NODES: No mediastinal mass or fluid collection. Normal size mediastinal, hilar, and axillary lymph nodes. Mild distal esophageal thickening. THORACIC AORTA: No thoracic aortic aneurysm. PULMONARY ARTERIES: Caliber is within normal limits. HEART: Normal heart size. Coronary arterial calcifications are present.No significant pericardial eff usion. ABDOMEN/PELVIS: UPPER GI: Elli-en-Y gastric bypass. This is not well assessed without contrast. LIVER: No significant focal abnormality. GALLBLADDER/BILE DUCTS: No biliary ductal dilatation.? PANCREAS: No mass, ductal dilation, or dashawn-pancreatic fluid. SPLEEN: Unremarkable. ADRENALS: No adrenal masses. KIDNEYS AND URETERS: No hydronephrosis.Limited evaluation for renal lesions in the absence of IV cont rast. ABDOMINAL AORTA AND OTHER VESSELS: Mild atherosclerotic changes. PERITONEUM: No abnormal free fluid. No free air. LYMPH NODES: No pathologic lymphadenopathy. ABDOMINAL WALL: Unremarkable SMALL BOWEL/COLON: Small bowel has normal course and caliber. No colonic wall thickening or pericolon ic inflammatory changes. URINARY BLADDER: Underdistended but grossly unremarkable. REPRODUCTIVE ORGANS: No pathologic process. COMBINED: MUSCULOSKELETAL: Minimally displaced acute right ninth and 10th rib fractures posteriorly. Deformity of the right posterior 11th rib may represent another rib fracture. ADDITIONAL FINDINGS: None. IMPRESSION: Minimally displaced acute right ninth and 10th rib fractures. Trace right hemothorax. No pneumothorax . No other evidence of significant trauma. Incidental findings as noted above,
--- NOTE | 2024-05-09 18:33 | EDPHYS ---
Physician Documentation [facility] Name: Pati Romero Age: 59 yrs Sex: Female : 1965 Arrival Date: 05/09/2024 Time: 16:43 Bed 10 Private MD: ED Physician Adriana Palafox HPI: 05/09 17:33 This 59 yrs old Female presents to ER via Ambulatory with complaints of Fall sp3 Injury. 17:33 59-year-old female with history of hypertension, prior seizures, history of brain sp3 aneurysm that presents to the ED with mechanical fall landing on her right side complaining of pain on her lateral ribs and back. She denies loss of consciousness, head injury, neck pain, anterior chest pain, extremity pain, shortness of breath, or any other signs or symptoms on ROS at this time.. Historical: - Allergies: 16:57 Demerol; me1 - PMHx: 16:57 brain aneurysm with metal; pt was 26 yrs old; Depression; Hypertension; Hypothyroidism; me1 Seizures; - PSHx: 16:57 hysterectomy; Appendectomy; me1 - Immunization history:: Adult Immunizations up to date. - Infectious Disease History:: Denies. - Social history:: Smoking status: Patient denies any tobacco usage or history of. ROS: 17:34 Constitutional: Negative for fever, chills, and weight loss, Eyes: Negative for injury, sp3 pain, redness, and discharge, Neck: Negative for injury, pain, and swelling, Cardiovascular: Negative for chest pain, palpitations, and edema, Respiratory: Negative for shortness of breath, cough, wheezing, and pleuritic chest pain, MS/Extremity: Negative for injury and deformity, Neuro: Negative for headache, weakness, numbness, tingling, and seizure, 17:34 All other systems are negative, Exam: 17:36 Constitutional: This is a well developed, well nourished patient who is awake, alert, sp3 and in no acute distress. Head/Face: Normocephalic, atraumatic. Eyes: Pupils equal round and reactive to light, extra-ocular motions intact. Lids and lashes normal. Conjunctiva and sclera are non-icteric and not injected. Cornea within normal limits. Periorbital areas with no swelling, redness, or edema. Neck: Trachea midline, no thyromegaly or masses palpated, and no cervical lymphadenopathy. Supple, full range of motion without nuchal rigidity, or vertebral point tenderness. No Meningismus. Chest/axilla: Normal chest wall appearance and motion. Nontender with no deformity. No lesions are appreciated. Cardiovascular: Regular rate and rhythm with a normal S1 and S2. No gallops, murmurs, or rubs. Normal PMI, no JVD. No pulse deficits. Respiratory: Lungs have equal breath sounds bilaterally, clear to auscultation and percussion. No rales, rhonchi or wheezes noted. No increased work of breathing, no retractions or nasal flaring. Skin: Warm, dry with normal turgor. Normal color with no rashes, no lesions, and no evidence of cellulitis. MS/ Extremity: Pulses equal, no cyanosis. Neurovascular intact. Full, normal range of motion. Neuro: Awake and alert, GCS 15, oriented to person, place, time, and situation. Cranial nerves II-XII grossly intact. Motor strength 5/5 in all extremities. Sensory grossly intact. Cerebellar exam normal. Normal gait. Psych: Awake, alert, with orientation to person, place and time. Behavior, mood, and affect are within normal limits. 17:36 Abdomen/GI: Patient with pain to palpation right flank and ribs without subcu air, crepitus or ecchymoses. Abdomen is soft nontender and without peritoneal signs. Breath sounds equal bilaterally. No other injury noted., Vital Signs: 16:55 BP 121 / 79; Pulse 61; Resp 16; Temp 98.4; Pulse Ox 95% ; Weight 88.45 kg; Height 5 ft. me1 1 in. ; Pain 10/10; 18:50 BP 122 / 80; Pulse 64; Resp 17; Pulse Ox 97% ; me1 19:50 BP 125 / 83; Pulse 62; Resp 18; Pulse Ox 97% ; me1 20:44 Pain 7/10; me1 21:16 BP 103 / 78; Pulse 63; Resp 17; Pulse Ox 93% on R/A; me1 16:55 Body Mass Index 36.84 (88.45 kg, 154.94 cm) me1 16:55 Pain Scale: Adult me1 20:44 Pain Scale: Adult me1 MDM: 17:00 Medical Screening Exam initiated sp3 17:39 Data reviewed: vital signs, nurses notes, radiologic studies. ED course: 59-year-old sp3 female with mechanical fall with right-sided pain. Will obtain CT scan of the chest abdomen pelvis without contrast to assess. Patient already took p.o. NSAIDs prior to arrival. She drove herself so no narcotics will be given. If workup negative we will safely discharge patient home with surface contusions only.. 18:32 ED course: Patient has ninth and 10th rib fractures with minimal displacement and small sp3 hemothorax. We will admit patient for pain control, incentive spirometry and morning chest x-ray to ensure her injuries are not worse. I have discussed the case with Dr. Lamar who will be general surgeon consulting on the case.. 05/09 18:24 Order name: CBC with Diff 3 05/09 18:24 Order name: CMP [facility] 05/09 18:24 Order name: PT-INR [facility] 05/09 18:24 Order name: Ptt, Activated [facility] 05/09 19:03 Order name: Lactate w/ 2H reflex if indic. [facility] 05/09 19:03 Order name: Magnesium [facility] 05/09 19:03 Order name: NT PRO-BNP [facility] 05/09 19:03 Order name: Phosphorus [facility] 05/09 19:03 Order name: Urinalysis w/ reflexes [facility] 05/09 19:03 Order name: Basic Metabolic Panel [facility] 05/09 19:03 Order name: Basic Metabolic Panel [facility] 05/09 19:03 Order name: CBC with Automated Diff [facility] 05/09 19:03 Order name: CBC with Automated Diff [facility] 05/09 19:03 Order name: Lipid Profile [facility] 05/09 19:03 Order name: Lipid Profile [facility] 05/09 17:14 Order name: CT Chest Abdomen Pelvis W/O Contrast; Complete Time: 18:11 sp3 05/09 19:06 Order name: Chest Single View [facility] 05/09 19:06 Order name: Chest Single View [facility] 05/09 19:06 Order name: Chest Single View [facility] 05/09 19:06 Order name: Chest Single View [facility] 05/09 18:24 Order name: IV Saline Lock; Complete Time: 18:43 sp3 05/09 18:24 Order name: Labs collected and sent; Complete Time: 18:43 sp3 Administered Medications: 17:28 Not Given (Patient Refused; took ibuprofen at home ptaa): [id number] mg PO once me1 18:49 Drug: morphine IVP or IV 4 mg IVP once over 4 mins Route: IVP; Infused Over: 4 mins; me1 Site: right antecubital; 19:17 Follow up: Response: No adverse reaction; Pain is decreased me1 18:49 Drug: Ondansetron IVP 4 mg IVP once; over 2 minutes Route: IVP; Site: right antecubital;me1 19:16 Follow up: Response: No adverse reaction; Nausea is decreased me1 20:33 Drug: fentaNYL (PF) IVP 100 mcg IVP once Route: IVP; Site: right antecubital; me1 20:44 Follow up: Pain /10 Adult; Response: No adverse reaction; Pain is decreased me1 20:33 Drug: Ondansetron IVP 4 mg IVP once; over 2 minutes Route: IVP; Site: right antecubital;me1 20:44 Follow up: Response: No adverse reaction; Nausea is decreased me1 Disposition Summary: 05/09/24 18:33 Hospitalization Ordered Notes: Hospitalization Status: Observation sp3 Provider: [place] sp3 Location: Telemetry/MedSurg (observation) sp3 Condition: Stable sp3 Problem: new sp3 Symptoms: have worsened sp3 Bed/Room Type: Standard sp3 Room Assignment: 216(05/09/24 21:23) kl Diagnosis - Rib fracture, hemothorax right side sp3 Forms: - Medication Reconciliation Form sp3 - SBAR form sp3 - Leadership Thank You Letter sp3 Signatures: Dispatcher [employer] Ijeoma Oden RN RN Adriana Vincent MD MD sp3 Sarkis Winslow MD MD sp4 Sharona Wilkerson RN RN me1 Corrections: (The following items were deleted from the chart) 18:25 18:25 [id number] ordered. [facility] EDMS 21:23 18:33 sp3 kl
--- NOTE | 2024-05-09 18:33 | ER ---
Nurse's Notes [facility] Name: Pati Romero Age: 59 yrs Sex: Female : 1965 Arrival Date: 05/09/2024 Time: 16:43 Bed 10 Private MD: Diagnosis: Rib fracture, hemothorax right side Presentation: 05/09 16:55 Chief complaint: Patient states: tripped and fell hitting her right side/flank on a me1 concrete table on Sunday. Pain 12/19. Coronavirus screen: Vaccine status: Patient reports being unvaccinated. Ebola Screen: No symptoms or risks identified at this time. Initial Sepsis Screen: Does the patient meet any 2 criteria? No. Patient's initial sepsis screen is negative. Does the patient have a suspected source of infection? No. Patient's initial sepsis screen is negative. Risk Assessment: Do you want to hurt yourself or someone else? Patient reports no desire to harm self or others. Onset of symptoms was May 05, 2024. 16:55 Method Of Arrival: [place] [facility] 16:55 Acuity: SUSAN 4 me1 Historical: - Allergies: 16:57 Demerol; me1 - PMHx: 16:57 brain aneurysm with metal; pt was 26 yrs old; Depression; Hypertension; Hypothyroidism; me1 Seizures; - PSHx: 16:57 hysterectomy; Appendectomy; me1 - Immunization history:: Adult Immunizations up to date. - Infectious Disease History:: Denies. - Social history:: Smoking status: Patient denies any tobacco usage or history of. Screenin:43 [facility] ED Fall Risk Assessment (Adult) History of falling in the last 3 months, de1 including since admission Yes- single mechanical fall (1 pt) Confusion or Disorientation No (0 pts) Intoxicated or Sedated No (0 pts) Impaired Gait No (0 pts) Mobility Assist Device Used No (0 pt) Altered Elimination No (0 pt) Score/Fall Risk Level 0 - 2 = Low Risk Maintained a safe environment, Provided non-skid footwear, Hourly rounding (assess needs \T\ fall precautionary measures) done. Abuse screen: Denies threats or abuse. Nutritional screening: No deficits noted. Tuberculosis screening: No symptoms or risk factors identified. Assessment: 17:43 General: Appears uncomfortable, well groomed, well developed, well nourished, Behavior me1 is calm, cooperative, appropriate for age, Reports tripped and fell hitting her right side/flank on a concrete table on Sunday. Pain 10/10. Pain: Complains of pain in right lateral anterior chest and abdomen Pain does not radiate. Pain currently is 10 out of 10 on a pain scale. Quality of pain is described as sharp, Pain began suddenly, Is continuous. Neuro: Level of Consciousness is awake, alert, obeys commands, Oriented to person, place, time, situation, Appropriate for age. Cardiovascular: Patient's skin is warm and dry. Respiratory: Airway is patent Respiratory effort is even, unlabored, Respiratory pattern is regular, symmetrical. GI: No signs and/or symptoms were reported involving the gastrointestinal system. : No signs and/or symptoms were reported regarding the genitourinary system. EENT: No signs and/or symptoms were reported regarding the EENT system. Derm: Skin is intact, is healthy with good turgor, Skin is pink, warm \T\ dry. Musculoskeletal: Reports pain in right lateral anterior chest since Sunday. Injury Description: tripped and fell hitting her right side/flank on a concrete table on Sunday. Pain 10/10. Vital Signs: 16:55 BP 121 / 79; Pulse 61; Resp 16; Temp 98.4; Pulse Ox 95% ; Weight 88.45 kg; Height 5 ft. me1 1 in. ; Pain 10/10; 18:50 BP 122 / 80; Pulse 64; Resp 17; Pulse Ox 97% ; me1 19:50 BP 125 / 83; Pulse 62; Resp 18; Pulse Ox 97% ; me1 20:44 Pain 7/10; me1 21:16 BP 103 / 78; Pulse 63; Resp 17; Pulse Ox 93% on R/A; me1 16:55 Body Mass Index 36.84 (88.45 kg, 154.94 cm) me1 16:55 Pain Scale: Adult me1 20:44 Pain Scale: Adult de1 ED Course: 16:48 Patient arrived in ED. mr 16:57 Triage completed. me1 16:57 Arm band placed on Patient placed in an exam room. me1 17:00 Adriana Palafox MD is Attending Physician. sp3 17:15 Eddleman, Sharona, RN is Primary Nurse. me1 17:29 CT Chest Abdomen Pelvis W/O Contrast In Process Unspecified. EDMS 17:43 Patient has correct armband on for positive identification. Bed in low position. Call me1 light in reach. Side rails up X 1. Provided Education on: POC. Verbalized understanding.. 17:43 No provider procedures requiring assistance completed. me1 18:32 Prince Gray MD is Hospitalizing Provider. sp3 18:43 CBC with Diff Sent. me1 18:43 CMP Sent. me1 18:43 Ptt, Activated Sent. me1 18:43 PT-INR Sent. me1 18:43 Initial lab(s) drawn, by me, sent to lab. Inserted saline lock: 22 gauge in right [facility] antecubital area, using aseptic technique. 21:31 Patient admitted, IV remains in place. me1 Administered Medications: 17:28 Not Given (Patient Refused; took ibuprofen at home ptaa): [id number] mg PO once me1 18:49 Drug: morphine IVP or IV 4 mg IVP once over 4 mins Route: IVP; Infused Over: 4 mins; me1 Site: right antecubital; 19:17 Follow up: Response: No adverse reaction; Pain is decreased me1 18:49 Drug: Ondansetron IVP 4 mg IVP once; over 2 minutes Route: IVP; Site: right antecubital;me1 19:16 Follow up: Response: No adverse reaction; Nausea is decreased me1 20:33 Drug: fentaNYL (PF) IVP 100 mcg IVP once Route: IVP; Site: right antecubital; me1 20:44 Follow up: Pain 7/10 Adult; Response: No adverse reaction; Pain is decreased me1 20:33 Drug: Ondansetron IVP 4 mg IVP once; over 2 minutes Route: IVP; Site: right antecubital;me1 20:44 Follow up: Response: No adverse reaction; Nausea is decreased me1 Medication: 17:43 VIS not applicable for this client. me1 Outcome: 18:33 Decision to Hospitalize by Provider. sp3 21:31 Admitted to Med/surg accompanied by tech, via wheelchair, room 216, with chart, Report me1 called to faxed, receipt confirmed with Jose Antonio. 21:31 Condition: stable 21:31 Instructed on the need for admit, 22:29 Patient left the ED. me1 Signatures: Dispatcher [employer] EDMS Julian Laura, Reg Reg mr Adriana Palafox MD MD sp3 Sharona Wilkerson RN RN me1 Corrections: (The following items were deleted from the chart) 17:43 16:55 Chief complaint: Patient states: tripped and fell hitting her right side/flank on me1 a concrete table on Sunday. Pain 12/19. me1 18:49 18:43 Inserted saline lock: 22 gauge in left antecubital area, using aseptic technique. me1 me1
[2024-05-09] MEDS ORDERED: MORPHINE 4 MG/ML SYR ONE (18:40)
[2024-05-09] MEDS ORDERED: ONDANSETRON 4 MG/2 ML VIAL ONE ×2 (18:40→20:28)
[2024-05-09 18:52] LABS: Absolute Basophils 0.1 K/uL (0-0.5); Absolute Eosinophils 0.1 K/uL (0-0.5); Absolute Lymphocytes (CBC) 1.6 K/uL (0.7-4.9); Absolute Monocytes 0.6 K/uL (0.1-1.3); Absolute Neutrophil 7.3 K/uL (1.8-8.0); Basophils % 0.6 % (0-1.3); Hematocrit 43.6 % (36.0-45.0); Hemoglobin 14.8 g/dL (12.0-15.0); Lymphocytes % 16.3 % (15.3-44.8); MCH 31.2 pg (27.0-35.0); MCHC 33.9 g/dL (32.0-36.0); MCV 92.1 fL (80-100); MPV 8.1 fL (7.6-11.3); Monocytes % 6.2 % (3.3-12.3); Neutrophils % 75.9 % (41.7-73.7); Nucleated Red Blood Cells % 0.1 % (0-0); Platelets 239 thou/uL (152-406); RBC Red Blood Cell Count 4.73 M/uL (3.86-4.86); Red Cell Distribution Width 13.9 % (12.1-15.2)
[2024-05-09] MEDS ORDERED: IPRATROPIUM BROM 0.5MG/2.5ML NEB PRN (18:59)
[2024-05-09] MEDS ORDERED: ALBUTEROL 2.5 MG/3 ML NEB SOL NEB PRN (18:59)
[2024-05-09] MEDS ORDERED: ONDANSETRON 4 MG/2 ML VIAL IV PRN (18:59)
[2024-05-09 19:00] LABS: PT Prothrombin Time 11.9 SECONDS (10.0-13.0); PTT, Activated Partial Thromb 29.5 SECONDS (24.3-36.9); Protime INR 1.05
[2024-05-09] MEDS: LIDOCAINE 5% 30 GM TUBE (for wound healing center only) TOP SCH (19:02)
[2024-05-09 19:07] LABS: Albumin 3.8 g/dL (3.4-5.0); Albumin/Globulin Ratio 1.1 (1.1-1.8); Bilirubin Total 0.6 mg/dL (0.2-1.0); Globulin 3.6 g/dL (2.3-3.5); Protein, Total 7.4 g/dL (6.4-8.2)
--- NOTE | 2024-05-09 19:12 | P.HP ---
Certification for Inpatient Patient admitted to: Inpatient With expected LOS: >2 Midnights Practitioner: I am a practitioner with admitting privileges, knowledge of patient current condition, hospital course, and medical plan of care. Services: Services provided to patient in accordance with Admission requirements found in Title 42 Section 412.3 of the Code of Federal Regulations Patient History Date of Service: 05/09/24 Reason for admission: traumatic hemothorax History of Present Illness: Patient is a 59 year old female with a PMH of Seizure disorder (last episode 18 years ago), hypothyroidism and obesity. She is being admitted for traumatic hemothorax. Patient was at [employer] where she tripped against an extnesion cord. She fell onto her R sided. No LOC. She presents with severe R flank pain. CT shows hemothorax. ER has contacted Surgery, Dr. Vieira, for consult. Allergies meperidine [From Demerol] Allergy (Verified 11/21/18 12:50) UNK Physical Examination - Physical Exam General: Acute distress, Obese HEENT: Atraumatic, Normocephalic Respiratory: Diminished Cardiovascular: No edema, Normal pulses, Regular rate/rhythm, Normal S1 S2 Neurological: Normal speech - Studies Laboratory Data (last 24 hrs) 05/09/24 05/09/24 18:41 18:41 WBC 9.60 Hgb 14.8 Hct 43.6 Plt Count 239 PT 11.9 INR 1.05 APTT 29.5 Assessment and Plan - Problems (Diagnosis) (1) Hemothorax, right Current Visit: Yes Status: Acute (2) Seizure disorder Current Visit: Yes Status: Acute (3) Hypothyroidism Current Visit: Yes Status: Acute (4) Obesity Current Visit: Yes Status: Acute - Plan Assessment Patient is a 59 year old female presents with ground-level fall after she tripped onto an extension cord. She is here for persistent pain. CT shows R hemothorax. Patient is on room air but has extensive pain, unable to take a deep breath. She has minimally displaced acute right ninth and 10th rib fractures and trace right hemothorax. No pneumothorax. R hemothorax R sided rib fractures Acute pain Seizure disorder Hypothyroidism Obesity PLAN: Admit inpatient with telemetry Multi-modal pain regimen including lidocaine patch Incentive spirometry CXR in the morning General surgery consulted Resume rest of home medications upon reconciliation - Advance Directives Does patient have a Living Will: No Does patient have a Durable POA for Healthcare: No
[2024-05-09 19:35] VITALS: BMI 36.8
[2024-05-09] MEDS ORDERED: FENTANYL CITR 100 MCG/2 ML ONE (20:28)
[2024-05-09] MEDS ORDERED: LIDOCAINE 4% PATCH ONE (20:35)
[2024-05-09 23:25] LABS: Specific Gravity 1.026 (1.005-1.030); Sqamous Epithelial <5 /HPF (None Seen); Urine Bacteria None Seen /HPF (<20); Urine Bilirubin NEGATIVE (Negative); Urine Blood Negative (Negative); Urine Clarity Turbid (Clear); Urine Color Yellow (Yellow); Urine Culture Reflex Order REFLEXED; Urine Glucose NEGATIVE (Negative); Urine Ketones NEGATIVE (Negative); Urine Microscopic Reflex YN ORDER UMIC; Urine Mucus 2+ /HPF (None Seen); Urine Nitrite NEGATIVE (Negative); Urine Protein TRACE (Negative); Urine RBC <5 /HPF (None Seen); Urine Urobilinogen 1+ (Normal)
[2024-05-09 23:50] LABS: Magnesium 2.2 mg/dL (1.6-2.4); Phosphorus 3.5 mg/dL (2.5-4.9)
[2024-05-09] MEDS: HYDROMORPHONE HCL 1 MG/ML INJ IV ONE (23:57)
[2024-05-10] MEDS: CYCLOBENZAPRINE 10 MG TAB PO SCH (01:52)
[2024-05-10 06:13] LABS: Absolute Basophils 0.1 K/uL (0-0.5); Absolute Eosinophils 0.2 K/uL (0-0.5); Absolute Lymphocytes (CBC) 1.7 K/uL (0.7-4.9); Absolute Monocytes 0.6 K/uL (0.1-1.3); Absolute Neutrophil 4.1 K/uL (1.8-8.0); Basophils % 0.7 % (0-1.3); Eosinophils % 3.3 % (0-4.4); Hematocrit 40.7 % (36.0-45.0); Hemoglobin 13.9 g/dL (12.0-15.0); Lymphocytes % 25.8 % (15.3-44.8); MCH 31.3 pg (27.0-35.0); MCHC 34.1 g/dL (32.0-36.0); MCV 91.8 fL (80-100); MPV 8.9 fL (7.6-11.3); Monocytes % 9.4 % (3.3-12.3); Neutrophils % 60.8 % (41.7-73.7); Nucleated Red Blood Cells % 0.1 % (0-0); Platelets 213 thou/uL (152-406); RBC Red Blood Cell Count 4.43 M/uL (3.86-4.86); Red Cell Distribution Width 13.5 % (12.1-15.2)
[2024-05-10 06:22] LABS: Anion Gap 7.5 mEq/L (5.0-15.0); Potassium 3.5 mEq/L (3.5-5.1)
[2024-05-10] MEDS: LEVOTHYROXINE SOD 0.125 MG TAB PO SCH (06:35)
--- NOTE | 2024-05-10 07:21 | RAD REPORT ---
EXAM: Chest Single View HISTORY: 59 years Female hemothorax COMPARISON: CT 05/09/2024 FINDINGS: LUNGS/PLEURA: Low lung volumes. No acute process identified. No significant pleural effusions. CARDIAC/MEDIASTINUM: The cardiac silhouette is within normal limits. UPPER ABDOMEN: No significant abnormality. BONES: Rib fractures better demonstrated on yesterday's CT. LINES/TUBES/OTHER: N/A IMPRESSION: Low lung volumes without acute process identified. No significant effusions and no pneumothorax.
[2024-05-10] MEDS: levETIRAcetam 500 MG TAB PO SCH ×2 (08:09→20:10)
[2024-05-10] MEDS: GABAPENTIN 300 MG CAP PO SCH (08:09)
[2024-05-10] MEDS: POTASSIUM CL SA 10 MEQ TAB PO ONE (08:09)
[2024-05-10] MEDS: PARoxetine HCL 10 MG TAB PO SCH (08:09)
[2024-05-10] MEDS: CALCIUM 250 MG/VITAMIN D 125 IU TAB PO SCH ×2 (08:57→21:00)
[2024-05-10] MEDS: NA CHLORIDE 0.9% 1,000 ML IV SCH (08:57)
[2024-05-10] MEDS: methocarbamoL 750 MG TAB PO SCH (09:00)
[2024-05-10] MEDS ORDERED: lamoTRIgine 100 MG TAB PO SCH (09:00)
[2024-05-10] MEDS ORDERED: LAMOTRIGINE 200 MG PO SCH (09:00)
[2024-05-10] MEDS ORDERED: methocarbamoL 750 MG TAB PO SCH (09:00)
--- NOTE | 2024-05-10 10:56 | P.PN ---
Subjective Date of Service: 05/10/24 Chief Complaint: traumatic hemothorax Subjective: Complaining of right sided rib pain and some shortness of breath. No nausea or vomiting. No abdominal pain. No obvious bleeding. Looks comfortable in the bed. Objective: General appearance: Alert and comfortable CVS: Normal S1 and S2 Lungs: Clear to auscultation bilaterally Abdomen: Soft, bowel sounds present, no tenderness Extremities: No pedal edema Physical Examination - Vital Signs Temperature: 98.7 F Blood Pressure: 96/57 Pulse: 54 Respirations: 14 Pulse Ox (%): 92 - Studies Laboratory Data (last 24 hrs) 05/09/24 05/09/24 05/09/24 18:41 18:41 18:41 WBC 9.60 Hgb 14.8 Hct 43.6 Plt Count 239 PT 11.9 INR 1.05 APTT 29.5 Sodium 141 Potassium 4.0 BUN 13 Creatinine 0.96 Glucose 92 Total Bilirubin 0.6 AST 23 ALT 22 Alkaline Phosphatase 112 Assessment And Plan - Plan Patient is a 59 year old female presents with ground-level fall after she tripped onto an extension cord. CT shows R hemothorax. Patient is in extensive pain. She has minimally displaced acute right ninth and 10th rib fractures and trace right hemothorax. No pneumothorax. 1. R hemothorax: Surgical team is on board, no intervention. HemoGlobin normal and stable. Blood Pressure soft, continue fluids, monitor closely. 2. R sided rib fractures with uncontrolled pain: Pain control, incentive spirometry. 3. Seizure disorder: Continue home medications. 4. Hypothyroidism: Continue home medications. 5. Obesity: Follow-up with PCP, consider weight loss. Plan Discussed with the patient, answered all questions, discharge plan depends on clinical progress. Probably home when pain is controlled.
[2024-05-10] MEDS: HYDROCODONE/APAP 5/325 MG TAB PO PRN (12:16)
[2024-05-10] MEDS: LIDOCAINE 5% 30 GM TUBE (for wound healing center only) TOP SCH (16:44)
[2024-05-10] MEDS: ACETAMINOPHEN 325 MG TABLET PO PRN (17:51)
[2024-05-10] MEDS: MIRTAZAPINE 15 MG TAB PO SCH (20:10)
[2024-05-10] MEDS: PRAZOSIN HCL 1 MG CAP PO SCH (20:10)
[2024-05-10] MEDS: lamoTRIgine 100 MG TAB PO SCH (20:10)
[2024-05-10] MEDS: ROPINIROLE HCL 0.25 MG TAB PO SCH (20:10)
[2024-05-10] MEDS: MORPHINE 2 MG/ML SYR IV PRN (22:39)
[2024-05-11] MEDS: MORPHINE 2 MG/ML SYR IV PRN (01:14)
[2024-05-11 07:11] LABS: Absolute Eosinophils 0.2 K/uL (0-0.5); Absolute Lymphocytes (CBC) 1.4 K/uL (0.7-4.9); Absolute Monocytes 0.4 K/uL (0.1-1.3); Absolute Neutrophil 2.5 K/uL (1.8-8.0); Basophils % 0.8 % (0-1.3); Eosinophils % 3.9 % (0-4.4); Hematocrit 38.4 % (36.0-45.0); Hemoglobin 12.9 g/dL (12.0-15.0); Lymphocytes % 30.8 % (15.3-44.8); MCH 31.7 pg (27.0-35.0); MCHC 33.6 g/dL (32.0-36.0); MCV 94.4 fL (80-100); MPV 8.4 fL (7.6-11.3); Monocytes % 8.4 % (3.3-12.3); Neutrophils % 56.1 % (41.7-73.7); Nucleated Red Blood Cells % 0.1 % (0-0); Platelets 179 thou/uL (152-406); RBC Red Blood Cell Count 4.06 M/uL (3.86-4.86); Red Cell Distribution Width 13.8 % (12.1-15.2)
[2024-05-11 07:32] LABS: Anion Gap 3.7 mEq/L (5.0-15.0); Potassium 3.7 mEq/L (3.5-5.1)
[2024-05-11 07:37] LABS: Thyroid Stimulating Hormone 11.7 uIU/mL (0.358-3.740)
--- NOTE | 2024-05-11 08:26 | RAD REPORT ---
EXAMINATION: ONE VIEW CHEST XR CLINICAL INDICATION: hemothorax TECHNIQUE: Frontal chest projection is submitted. Examination is limited by patient positioning and t echnique. COMPARISON: 05/10/2024 FINDINGS: The interstitial markings are mildly prominent. The heart is mildly enlarged. No measurable pneumotho rax seen. Trace right pleural fluid. Patient's known minimally displaced right-sided rib fractures not well seen on plain radiograph.
[2024-05-11] MEDS ORDERED: MORPHINE 4 MG/ML SYR IV PRN (08:37)
[2024-05-11 08:45] VITALS: O2SAT 95
[2024-05-11 09:01] VITALS: BP 99/58; TEMP 98.5
--- NOTE | 2024-05-11 09:48 | P.DS ---
Admission Date: 05/09/24 Discharge Date: 05/11/24 Disposition: DC HOME/HOME HEALTH CARE Discharge Condition: FAIR Reason for Admission: traumatic hemothorax Hospital Course: Patient is a 59 year old female presents with ground-level fall after she tripped onto an extension cord. CT shows small Right hemothorax and rib fractures. Patient was in extensive pain. She has minimally displaced acute right ninth and 10th rib fractures and trace right hemothorax. No pneumothorax. Admitted for pain control and monitoring of respiratory status. Surgery team was consulted, I discussed with on-call surgeon Dr. Vieira today, he recommended conservative management, he is okay to discharge the patient, when I see the patient this morning, she is doing well without any acute problems, her pain is reasonably controlled and using incentive spirometry, nursing staff notified me that they were able to wean her off oxygen, otherwise no other acute issues going on, patient really wants to go home, so I am planninig to discharge her to go home. She has some resting bradycardia but asymptomatic, when she is active, heart rate is good, need close follow-up with PCP. 1. R hemothorax: Surgical team is on board, no intervention. HemoGlobin normal and stable. 2. R sided rib fractures with uncontrolled pain: Pain control, incentive spirometry. 3. Seizure disorder: Continue home medications. 4. Hypothyroidism: Continue home medications. TSH little high but free T4 normal, follow-up with PCP with repeat labs. 5. Obesity: Follow-up with PCP, consider weight loss. 6. History of hypertension: Blood pressure soft, stop amlodipine. Plan Discussed with the patient, answered all questions, Discussed with the nursing staff. DC home, follow-up with PCP. Subjective: No shortness of breath. Right-sided rib pain controlled. No nausea or vomiting. No abdominal pain. No obvious bleeding. Looks comfortable in the bed. Objective: General appearance: Alert and comfortable CVS: Normal S1 and S2, mild tenderness in the right ribs laterally. Lungs: Clear to auscultation bilaterally Abdomen: Soft, bowel sounds present, no tenderness Extremities: No lower extremity edema Vital Signs/Physical Exam: Temp Pulse Resp BP Pulse Ox 98.5 F 42 L 20 99/58 L 91 05/11/24 08:00 05/11/24 08:00 05/11/24 08:00 05/11/24 08:00 05/11/24 08:00 Laboratory Data at Discharge: WBC 4.50 thou/uL (4.3-10.9) 05/11/24 06:57 Hgb 12.9 g/dL (12.0-15.0) 05/11/24 06:57 Hct 38.4 % (36.0-45.0) 05/11/24 06:57 Plt Count 179 thou/uL (152-406) 05/11/24 06:57 PT 11.9 SECONDS (10.0-13.0) 05/09/24 18:41 INR 1.05 05/09/24 18:41 APTT 29.5 SECONDS (24.3-36.9) 05/09/24 18:41 Sodium 144 mEq/L (136-145) 05/11/24 06:57 Potassium 3.7 mEq/L (3.5-5.1) 05/11/24 06:57 BUN 14 mg/dL (7-18) 05/11/24 06:57 Creatinine 0.85 mg/dL (0.55-1.02) 05/11/24 06:57 Glucose 82 mg/dL (74-106) 05/11/24 06:57 Phosphorus 3.5 mg/dL (2.5-4.9) 05/09/24 23:12 Magnesium 2.2 mg/dL (1.6-2.4) 05/09/24 23:12 Total Bilirubin 0.6 mg/dL (0.2-1.0) 05/09/24 18:41 AST 23 U/L (15-37) 05/09/24 18:41 ALT 22 U/L (13-56) 05/09/24 18:41 Alkaline Phosphatase 112 U/L (45-117) 05/09/24 18:41 Triglycerides 80 mg/dL (<150) 05/10/24 05:26 Cholesterol 154 mg/dL (<200) 05/10/24 05:26 HDL Cholesterol 48 mg/dL (40-60) 05/10/24 05:26 Cholesterol/HDL Ratio 3.21 05/10/24 05:26 Imagings Data: Laboratory Results WBC 4.50 thou/uL (4.3-10.9) 05/11/24 06:57 RBC 4.06 M/uL (3.86-4.86) 05/11/24 06:57 Hgb 12.9 g/dL (12.0-15.0) 05/11/24 06:57 Hct 38.4 % (36.0-45.0) 05/11/24 06:57 MCV 94.4 fL (80-100) 05/11/24 06:57 MCH 31.7 pg (27.0-35.0) 05/11/24 06:57 MCHC 33.6 g/dL (32.0-36.0) 05/11/24 06:57 RDW 13.8 % (12.1-15.2) 05/11/24 06:57 Plt Count 179 thou/uL (152-406) 05/11/24 06:57 MPV 8.4 fL (7.6-11.3) 05/11/24 06:57 Plt Distribution Width Cancelled 05/10/24 11:15 Absolute Nucleated RBC Cancelled 05/10/24 11:15 Neutrophils % 56.1 % (41.7-73.7) 05/11/24 06:57 Lymphocytes % 30.8 % (15.3-44.8) 05/11/24 06:57 Monocytes % 8.4 % (3.3-12.3) 05/11/24 06:57 Eosinophils % 3.9 % (0-4.4) 05/11/24 06:57 Basophils % 0.8 % (0-1.3) 05/11/24 06:57 Nucleated RBC % Cancelled 05/10/24 11:15 Absolute Neutrophils 2.5 K/uL (1.8-8.0) 05/11/24 06:57 Absolute Lymphocytes 1.4 K/uL (0.7-4.9) 05/11/24 06:57 Absolute Monocytes 0.4 K/uL (0.1-1.3) 05/11/24 06:57 Absolute Eosinophils 0.2 K/uL (0-0.5) 05/11/24 06:57 Absolute Basophils 0.0 K/uL (0-0.5) 05/11/24 06:57 Diff Path Review Cancelled 05/10/24 11:15 PT 11.9 SECONDS (10.0-13.0) 05/09/24 18:41 INR 1.05 05/09/24 18:41 APTT 29.5 SECONDS (24.3-36.9) 05/09/24 18:41 Sodium 144 mEq/L (136-145) 05/11/24 06:57 Potassium 3.7 mEq/L (3.5-5.1) 05/11/24 06:57 Chloride 115 mEq/L (98-107) H 05/11/24 06:57 Carbon Dioxide 29 mEq/L (21-32) 05/11/24 06:57 Anion Gap 3.7 mEq/L (5.0-15.0) L 05/11/24 06:57 BUN 14 mg/dL (7-18) 05/11/24 06:57 Creatinine 0.85 mg/dL (0.55-1.02) 05/11/24 06:57 Est GFR (CKD-EPI) 78 ml/min (=/>90) L 05/11/24 06:57 Glucose 82 mg/dL (74-106) 05/11/24 06:57 POC Glucose 73 mg/dL (65-120) 05/11/24 07:39 Lactic Acid 1.4 mmol/L (0.4-2.0) 05/09/24 23:12 Calcium 8.0 mg/dL (8.5-10.1) L 05/11/24 06:57 Phosphorus 3.5 mg/dL (2.5-4.9) 05/09/24 23:12 Magnesium 2.2 mg/dL (1.6-2.4) 05/09/24 23:12 Total Bilirubin 0.6 mg/dL (0.2-1.0) 05/09/24 18:41 AST 23 U/L (15-37) 05/09/24 18:41 ALT 22 U/L (13-56) 05/09/24 18:41 Alkaline Phosphatase 112 U/L (45-117) 05/09/24 18:41 NT-Pro-B Natriuret Pep 187 pg/mL (<125) H 05/09/24 23:12 Serum Total Protein 7.4 g/dL (6.4-8.2) 05/09/24 18:41 Albumin 3.8 g/dL (3.4-5.0) 05/09/24 18:41 Globulin 3.6 g/dL (2.3-3.5) H 05/09/24 18:41 Albumin/Globulin Ratio 1.1 (1.1-1.8) 05/09/24 18:41 Triglycerides 80 mg/dL (<150) 05/10/24 05:26 Cholesterol 154 mg/dL (<200) 05/10/24 05:26 LDL Cholesterol, Calc 90 mg/dL (<130) 05/10/24 05: HDL Cholesterol 48 mg/dL (40-60) 05/10/24 05: Cholesterol/HDL Ratio 3.21 05/10/24 05:26 TSH 11.700 uIU/mL (0.358-3.740) H 05/11/24 06:57 Free T4 0.95 ng/dL (0.76-1.46) 05/11/24 06:57 Urine Color Yellow (Yellow) 05/09/24 22:54 Urine Clarity Turbid (Clear) H 05/09/24 22:54 Urine pH 6.0 (5.0-7.0) 05/09/24 22:54 Ur Specific [place] 1.026 (1.005-1.030) 05/09/24 22:54 Glucose (UA)(Auto) Negative (Negative) 05/09/24 22:54 Urine Ketones Negative (Negative) 05/09/24 22:54 Urine Blood Negative (Negative) 05/09/24 22:54 Urine Nitrite Negative (Negative) 05/09/24 22:54 Urine Bilirubin Negative (Negative) 05/09/24 22:54 Urine Urobilinogen 1+ (Normal) H 05/09/24 22:54 Ur Leukocyte Esterase 250 [place]/uL (Negative) H 05/09/24 22:54 Urine RBC <5 /HPF (None Seen) 05/09/24 22:54 Urine WBC 10-20 /HPF (<5) H 05/09/24 22:54 Ur Squamous Epith Cells <5 /HPF (None Seen) 05/09/24 22:54 U Non-Squamous Epi Cells <5 /HPF (None Seen) 05/09/24 22:54 Urine Bacteria None seen /HPF (<20) 05/09/24 22:54 Hyaline Casts 0-5 /LPF (None Seen) 05/09/24 22:54 Urine Mucus 2+ /HPF (None Seen) 05/09/24 22:54 Urine Culture Reflexed Reflexed 05/09/24 22:54 Urine Total Protein Trace (Negative) H 05/09/24 22:54 Home Medications: Calcium 26/Vit D3/Magnesium 15 [[id number] Complx 167Mg Cp] 2 each PO BID 05/09/24 Gabapentin 300 mg PO TID 05/09/24 Hydrocodone 5/APAP 325 [[place] 5/325*] 1 tab PO Q4HP PRN 05/09/24 Lamotrigine [Lamictal] 100 mg PO BID 05/09/24 Levothyroxine [Synthroid*] 125 mcg PO [id number] 05/09/24 Mirtazapine 15 mg PO BEDTIME 05/09/24 PARoxetine HCL [Paxil] 40 mg PO DAILY 05/09/24 Prazosin HCl 1 mg PO BEDTIME 05/09/24 Ropinirole HCl [Requip*] 0.25 mg PO BEDTIME 05/09/24 hydrOXYzine HCL [Atarax*] 25 mg PO DAILYPRN PRN 05/09/24 lamoTRIgine [Lamotrigine] 200 mg PO BID 05/09/24 levETIRAcetam [Keppra*] 1,000 mg PO BEDTIME 05/09/24 levETIRAcetam [Keppra*] 500 mg PO DAILY 05/09/24 methocarbamoL [Methocarbamol] 750 mg PO TID 05/09/24 Followup: NONE,NONE [Primary Care Provider] - 1 Week (f/u with PCP in 1 week with CBC, CMP, Thyroid profile) Time spent managing pt's care (in minutes): 34
--- NOTE | 2024-05-11 17:34 | CON ---
Date of Consultation: 05/10/2024 Brief History Of Present Illness: The patient is a 59-year-old woman with a past medical history of seizure disorder, who has not had a seizure in over 18 years, hypothyroidism, and obesity, who was ad mitted after falling at a [employer]. She noted she tripped over an extension cord and fell onto the [facility] side. She denied LOC or seizure disorder were associated with this. She presents with right flank and chest pain. She has no other complaints other than the pain in the area described. Past Medical History: Seizure disorder, hypothyroidism, obesity. Allergies: NO KNOWN DRUG ALLERGIES. Medications: None. She is not on any blood thinners specifically. Review of Systems: A 10-point review of systems other than HPI denies. Social History: She denies smoking, alcohol, or recreational drug use. Physical Examination: General: At the time of my examination, general, she is awake, alert, and oriented. Psychiatric: She is appropriate and conversive. HEENT: She is normocephalic. Sclerae anicteric. Mucous membranes are moist. Oropharynx is clear. Neck: Supple without JVD. Chest: Normal to expansion and excursion. Cardiovascular: Regular rate and rhythm. Pulmonary: Clear to auscultation bilaterally. She has tenderness on the right side of the chest, bu t clear breath sounds on this side as well as extending to the right flank area. Abdomen: Soft, obese, nontender. Extremities: No clubbing, cyanosis, or edema. Skin: Warm and dry. Laboratory Data: Reveals a white blood cell count of 9.6, hemoglobin is 14.8, hematocrit of 43.6, pl atelet count is 239. Coags: PT 11.9, INR 1.05, PTT 29.5. Chemistry shows a sodium of 141, potassiu m 4.0, chloride of 107, carbon dioxide 31, BUN 13, creatinine 0.96, glucose of 92, lactic acid 1.4, t otal bilirubin 0.6, AST 23, ALT 22, alkaline phosphatase 112. She had imaging performed, which inclu ded a CT of the chest, which officially read as minimally displaced acute right ninth and tenth rib f ractures, trace right hemothorax, no pneumothorax, no evidence of significant trauma. Assessment And Plan: This is a 59-year-old female who is status post fall with right-sided ninth and tenth rib fractures. 1. IV fluid hydration. 2. Pain management. 3. Incentive spirometry. 4. I have explained the patient should wear a right arm sling intermittently to help guard the area. 5. Ambulation and pulmonary toilet reviewed with the patient to ensure she does proper breathing exer cises. 6. Follow with her primary care doctor and/or myself in 1-2 weeks for ongoing management. I have exp lained the risks, benefits, and alternatives of the above stated plan. The patient agreed to proceed as indicated. Thank you for this interesting consult. EB/COOPER Voice ID: [id number] Report ID: [id number]
== END 2024-05-11 11:55 | disposition home health service (06) | DRG 200 ==
LOC: ER 16:43 → ERHOLD 18:59 → 2ND 21:33
PROVIDERS: ADMIT Internal Medicine; ATTEND Hospitalist
DX: S27.1XXA Traumatic hemothorax, initial encounter (principal); S22.41XA Multiple fractures of ribs, right side, initial encounter for closed fracture; I10 Essential (primary) hypertension; E66.9 Obesity, unspecified; E03.9 Hypothyroidism, unspecified; G40.909 Epilepsy, unspecified, not intractable, without status epilepticus; Z88.5 Allergy status to narcotic agent; Z68.36 Body mass index [BMI] 36.0-36.9, adult; Z79.890 Hormone replacement therapy; Z90.49 Acquired absence of other specified parts of digestive tract; Z90.710 Acquired absence of both cervix and uterus; W01.0XXA Fall on same level from slipping, tripping and stumbling without subsequent striking against object, initial encounter; Y93.9 Activity, unspecified; Y99.9 Unspecified external cause status; Y92.89 Other specified places as the place of occurrence of the external cause
CPT/HCPCS: 36415; 71045; 71250; 74176; 80048; 80053; 80061; 81001; 82533; 82947; 83605; 83735; 83880; 84100; 84439; 84443; 85025; 85610; 85730; 87086; 87088; 94010; 96374; 96375; 99285; J1171; J2003; J2270; J2405; J3010; J7030